=== PATIENT | male | born 1960 | race Hispanic/Latino ===

== ENCOUNTER 2017-12-11 07:17 | Day surgery (SDC) | payer BC, OTHER ==
--- NOTE | 2017-12-06 15:08 | RAD REPORT ---
EXAM DESCRIPTION: RADOP - Outpt Chest Pa/Lat (2 Views) - 12/06/2017 2:56 pm CLINICAL HISTORY: Diabetes, hypertension COMPARISON: 08/27/2017 FINDINGS: Mild interstitial pulmonary edema is suspected, unchanged. Small bilateral pleural effusio ns appear stable. The heart is mildly prominent size. Right-sided venous catheter has tip in the SVC. No displaced fractures. IMPRESSION: Stable findings of mild CHF/ volume overload.
[2017-12-06 15:47] LABS: Absolute Monocytes 0.6 K/uL (0.1-1.3); Absolute Neutrophil 3.7 K/uL (1.8-8.0); Basophils % 1.2 % (0-1.3); Eosinophils % 2.8 % (0-4.4); Hematocrit 29.3 % (39.6-49.0); Lymphocytes % 18.2 % (15.3-44.8); MCV 84.5 fL (80-100); MPV 8.8 fL (7.6-11.3); Monocytes % 11.2 % (3.3-12.3); RBC Red Blood Cell Count 3.47 M/uL (4.33-5.43)
--- NOTE | 2017-12-06 15:57 | EKG ---
Test Date: 2017-12-06 Test Time: 13:43:35 Robotics Technician: KYUNG MEASUREMENT RESULTS: Intervals: Rate: 74 MO: 148 QRSD: 88 QT: 420 QTc: 466 [place]: P: 63 MO: 148 QRS: 45 T: 25 INTERPRETIVE STATEMENTS: Normal sinus rhythm Possible Left atrial enlargement Borderline ECG Compared to ECG 08/14/2017 11:44:32 T-wave abnormality no longer present Possible ischemia no longer present Prolonged QT interval no longer present Electronically Signed On 12-06-17 15:56:33 CDT by Bong Coleman
[2017-12-06 15:59] LABS: Potassium 4.6 mEq/L (3.6-5.0)
--- OUTSIDE RECORDS SUMMARY | 2017-12-11 07:20 | XMS REPORT | Clinical Summary ---
:1960 Author Organization [facility] Address [address] [place] [address] Care Team Providers Name Role Phone Dante Best MD Primary Care Provider Allergies No Known Allergies Current Medications Prescription Sig. Disp. Refills Start Date End Date Status metoprolol succinate Take 50 mg by 0 10/30/2017 Active XL (TOPROL-XL) 50 mg mouth daily. 24 hr tablet valsartan (DIOVAN) TK 1 T PO QD 3 07/31/2017 Active 160 MG tablet hydrALAZINE TK 1 T PO TID 3 10/19/2017 Active (APRESOLINE) 100 MG tablet DULoxetine TK ONE C PO QD 5 08/27/2017 Active (CYMBALTA) 30 MG capsule INSULIN Inject 40 Units Active GLARGINE,HUM.REC.ANL under the skin OG (LANTUS SUBQ) daily. acetaminophen-codein Take 1-2 tablets 30 tablet 0 11/07/2017 11/14/2017 e (TYLENOL WITH by mouth every 6 CODEINE #3) 300-30 (six) hours as mg per tablet needed for moderate pain for up to 7 days. docusate sodium Take 1 capsule 14 capsule 0 11/07/2017 11/14/2017 (COLACE) 100 MG (100 mg total) capsule by mouth 2 (two) times a day for 7 days. Active Problems Problem Noted Date History of blood transfusion Overview: in July-2016. Wears glasses Never exercises Immunizations up to date ESRD (end stage renal disease) on dialysis Encounters Date Type Specialty Care Team Description 11/07/2017 Hospital Encounter General Surgery Julio Roman MD 11/07/2017 Procedure Pass General Surgery 11/07/2017 Surgery General Surgery KAREN Roman MD PERITONEAL DIALYSIS CATHETER PLACEMENT 11/03/2017 Anesthesia Event General Surgery Shirley Prajapati, DIRECTOR [employer] 11/02/2017 Pre-Admit Testing Pre-Admission [facility], Preop testing Appointment Testing Julio Lilly MD (Primary Dx) 11/02/2017 Office Visit General Surgery [facility] End-stage renal Julio Lilly MD disease (Primary Dx) after 12/10/2016 Family History Medical History Relation Name Comments Diabetes Brother Cirrhosis Brother Diabetes Brother Heart disease Father Hypertension Father Stroke Father Diabetes Mother Hypertension Mother Kidney disease Mother Relation Name Status Comments Brother Brother Alive Brother Father Mother Social History Tobacco Use Types Packs/Day Years Used Date Former Smoker Cigarettes Smokeless Tobacco: Never Used Comments: quit for 1 year Alcohol Use Drinks/Week oz/Week Comments No stopped in july 2017. Sex Assigned at Date Recorded Not on file Last Filed Vital Signs Vital Sign Reading Time Taken Blood Pressure 198/98 11/07/2017 12:20 PM BELL CAPTAIN Pulse 64 11/07/2017 11:50 AM BELL CAPTAIN Temperature 36.2 C (97.2 F) 11/07/2017 10:15 AM BELL CAPTAIN Respiratory Rate 17 11/07/2017 10:15 AM BELL CAPTAIN Oxygen Saturation 99% 11/07/2017 11:50 AM BELL CAPTAIN Inhaled Oxygen Concentration - - Weight 84.4 kg (186 lb) 11/02/2017 1:31 PM BELL CAPTAIN Height 175.3 cm (5' 9") 11/02/2017 3:33 PM BELL CAPTAIN Body Mass Index 27.47 11/02/2017 1:31 PM BELL CAPTAIN Plan of Treatment Health Maintenance Due Date Last Done Comments COLONOSCOPY 2009 INFLUENZA VACCINE 04/25/2017 Implants Implanted Type Area Print Finisher Device Expiration Model / Identifier Date Serial / Lot Manoj Stylet Stylet / N/A: N/A MEDIONICS 07/24/2021 [id number] / Implanted: Qty: 1 on 11/07/2017 by Julio Roman MD [place], [id number] / [id number] Catheter 19.5cm Peritoneal Dialysis Extended - [id number] Surgical N/A: N/A 08/24/2022 [id number] [id number] / Implanted: 11/07/2017 (Quantity not on file) Implants; / Expanders; [id number] Extenders; Surgical Wires Procedures Procedure Name Priority Date/Time Associated Diagnosis Comments PA AN ELECTIVE Routine 11/07/2017 8:17 AM ENDOTRACHEAL AIRWAY BELL CAPTAIN Procedure Note - Clovis Cavazos CRNA - 11/07/2017 8:17 AM BELL CAPTAIN Airway Date/Time: 11/07/2017 8:05 AM Performed by: CLOVIS CAVAZOS Authorized by: CIERRA SEO Location: OR Urgency: Elective Difficult Airway: No Anesthesiologist: CIERRA SEO Resident/PETROLEUM ENGINEER/AA: CLOVIS CAVAZOS Performed by: resident/PETROLEUM ENGINEER/AA Preoxygenated with 100% O2: Yes C-spine Precautions Maintained Throughout: Yes Mask Ventilation: Easy mask Final Airway Type: Endotracheal airway Final Endotracheal Airway: ETT Cuffed: Yes Technique Used: Direct laryngoscopy Devices/Methods Used in Placement: Intubating stylet Insertion Site: Oral Blade Type: Cadet Laryngoscope Blade/Videolaryngoscope Blade Size: 2 ETT Size (mm): 7.0 Cuff at minimum occlusion pressure: Yes Measured from: Lips ETT to Lips (cm): 22 Placement Verified by: CO2 detection, direct visualization and equal breath sounds Laryngoscopic view: Grade I - full view of glottis Rapid Sequence Induction (RSI): No Modified RSI: No Number of Attempts at Approach: 1 Atraumatic. Dentition remains unchanged after 12/10/2016 Results POC glucose (11/07/2017 9:20 AM)Only the most recent of2 resultswithin the time period is included. Component Value Ref Range POC glucose 95 65 - 99 mg/dL Comment: Meter ID: [id number] Splunk Developer: Ayde Talavera Specimen Performing Laboratory [facility] DEPARTMENT OF PATHOLOGY AND GENOMIC MEDICINE [address] [place], [place] [id number] POC panel 4 (11/07/2017 7:44 AM) Component Value Ref Range POC sodium 141 135 - 148 meq/L POC potassium 4.8 3.5 - 5.0 meq/L POC hematocrit 33 (L) 41 - 51 % POC glucose 65 65 - 99 mg/dL POC hemoglobin 11.2 (L) 14.0 - 18.0 g/dL Specimen Performing Laboratory Blood [facility] DEPARTMENT OF PATHOLOGY AND GENOMIC MEDICINE [address] [place] [id number] Estimated GFR (11/07/2017 7:40 AM) Component Value Ref Range GFR Non Af Amer 14 (A) mL/min/1.73 m2 GFR Af Amer 17 (A) mL/min/1.73 m2 Comment: Chronic kidney disease: <60 mL/min/1.73m2 Kidney failure: <15 mL/min/1.73m2 The estimated GFR is calculated from the IDMS-traceable Modification of Diet in Renal Disease Equation. The accuracy of the calculation is poor when the creatinine is normal. Calculated values >90 mL/min/1.73m2 are not reported. This equation has not been validated in children (<18 years), women, the elderly (>70 years), or ethnic groups other than Caucasians and Americans. Specimen Performing Laboratory Plasma specimen [facility] DEPARTMENT OF PATHOLOGY AND [facility] MEDICINE [address] [place] [address] Basic metabolic panel (11/07/2017 7:40 AM) Component Value Ref Range Sodium 140 135 - 148 mEq/L Potassium 4.6 3.5 - 5.0 mEq/L Chloride 103 98 - 112 mEq/L CO2 27 24 - 31 mEq/L Anion gap 10 7 - 15 mEq/L Comment: Starting from December , anion gap calculation no longer incorporates potassium. Please note the change. BUN 31 (H) 6 - 20 mg/dL Creatinine 4.4 (H) 0.7 - 1.2 mg/dL Glucose 66 65 - 99 mg/dL Calcium 8.2 (L) 8.3 - 10.2 mg/dL Specimen Performing Laboratory Plasma specimen [facility] DEPARTMENT OF PATHOLOGY AND [address] [address] ECG 12 lead (11/02/2017 4:21 PM) Component Value Ref Range Ventricular rate 64 Atrial rate 64 PA interval 146 QRSD interval 86 QT interval 446 QTC interval 460 P axis 1 48 QRS axis 1 28 T wave axis 51 EKG impression Normal sinus rhythm-Possible Left atrial enlargement-Anterior infarct , age undetermined-Abnormal ECG-No previous ECGs available- Specimen Performing Laboratory [facility] [address] [place] [address] CBC with platelet and differential (11/02/2017 4:09 PM) Component Value Ref Range WBC 5.7 4.5 - 11.0 k/uL RBC 4.22 (L) 4.40 - 6.00 m/uL HGB 11.9 (L) 14.0 - 18.0 g/dL HCT 36.5 (L) 41.0 - 51.0 % MCV 86.5 82.0 - 100.0 fL MCH 28.2 27.0 - 34.0 pg MCHC 32.6 31.0 - 37.0 g/dL RDW - SD 48.3 37.0 - 55.0 fL MPV 8.8 6.9 - 11.0 fL Platelet count 234 150 - 400 K/uL Nucleated RBC 0.00 /100 WBC Neutrophils 67.8 39.0 - 69.0 % Lymphocytes 16.8 (L) 25.0 - 45.0 % Monocytes 12.9 (H) 0.0 - 10.0 % Eosinophils 0.9 0.0 - 5.0 % Basophils 0.9 0.0 - 1.0 % Immature granulocytes 0.7 0.0 - 1.0 % Specimen Performing Laboratory Blood [facility] DEPARTMENT OF PATHOLOGY AND GENOMIC MEDICINE [address] [place] [address] after 12/10/2016 Insurance Payer Benefit Plan / Group Subscriber ID Type Phone Address BCBS BCBS CHOICE PPO/FEDERAL EMPL PPO xxxxxxxxxxxx O MEDICARE MEDICARE PART A AND B xxxxxxxxxx Medicare [place], [place] [phone] [address]
[2017-12-11] MEDS ORDERED: NA CHLORIDE 0.9% 500 ML ONE (08:02)
[2017-12-11] MEDS ORDERED: CEFAZOLIN/SWI 1gm 1 GM/10 ML SYR ONE (08:02)
[2017-12-11] MEDS ORDERED: LIDOCAINE 2% MPF 5 ML VIAL ONE (08:24)
[2017-12-11] MEDS ORDERED: MIDAZOLAM HCL 2 MG/2 ML INJ ONE (08:24)
[2017-12-11] MEDS ORDERED: PROPOFOL 200 MG/20 ML VIAL IV ONE (08:24)
[2017-12-11] MEDS ORDERED: ONDANSETRON 4 MG/2 ML VIAL ONE (08:25)
[2017-12-11] MEDS ORDERED: FENTANYL CITR 100 MCG/2 ML ONE (08:25)
--- NOTE | 2017-12-11 10:15 | P.BOP ---
Preoperative diagnosis: ESRD Postoperative diagnosis: same Primary procedure: Removal of hemospit HD cuffed cath Estimated blood loss: <10cc Specimen: hemosplit Anesthesia: MAC Complications: None Transferred to: Recovery Room Condition: Good
[2017-12-11 10:39] VITALS: BP 164/73; TEMP 98
[2017-12-11 11:18] VITALS: O2SAT 98
--- NOTE | 2017-12-11 11:58 | OP ---
Date of Procedure: 12/11/2017 Surgeon: Gianfranco Koehler MD Preoperative Diagnosis: End-stage renal disease. Postoperative Diagnosis: End-stage renal disease. Procedure: Removal of a HemoSplit hemodialysis cuffed catheter. Anesthesia: MAC. Specimen: Intact HemoSplit hemodialysis catheter. History Of Present Illness: This is the case of a 57-year-old patient with renal failure, receiving peritoneal dialysis and no need for the HemoSplit cuffed catheter anymore, so he wants that removed. The benefits, alternatives, and risks of removal were fully explained to the patient, which include but are not limited to infection, bleeding, damage to adjacent structures, anesthesia complication, p ulmonary emboli, bleeding, PA, or even . He also understands this may not relieve any symptoms. He might need more than one surgical intervention. He understood. Signed a consent. Description Of Procedure: The patient was brought to the operating room, placed in supine position. Anesthesia was done without complication. The chest was prepped and draped in a sterile fashion. A time-out was called. An incision was made in the area with a cuff was. Incision was carried down t o the subcutaneous tissue. Cuff was released. We obtained proximal and distal control of the cuff a nd then split the catheter and then the insertion site was removed. Pressure applied intact and then also the proximal side also removed intact. Specimen sent for identification. The area was irrigat ed. No bleeding. Subcutaneous incision closed with 3-0 chromic and Steri-Strips on top. Sponge cou nts and instrument counts were correct. The patient tolerated the procedure well. The patient was s ent to recovery in stable condition. This was done in Trendelenburg position. DISCHARGE SUMMARY Diagnosis: Renal failure. Procedure: Removal of HemoSplit hemodialysis cuffed catheter. Disposition: Home. Activity: As tolerated. No heavy lifting. Followup: Follow up in my office in 1 week. Call for appointment at [phone]. Keep area dry for 48 hours, then may shower. Medications: See orders. HM/MODL Voice ID: [id number] Report ID: [id number]
== END 2017-12-11 11:10 | disposition home or self-care (01) ==
LOC: OR 07:17
PROVIDERS: ATTEND Surgery
PROC: 0JPT0XZ Removal of Tunneled Vascular Access Device from Trunk Subcutaneous Tissue and Fascia, Open Approach (ICD-10-PCS; principal; 2017-12-11 08:30)
DX: Z45.2 Encounter for adjustment and management of vascular access device (principal); I12.0 Hypertensive chronic kidney disease with stage 5 chronic kidney disease or end stage renal disease; E11.22 Type 2 diabetes mellitus with diabetic chronic kidney disease; N18.6 End stage renal disease; G47.30 Sleep apnea, unspecified; Z87.891 Personal history of nicotine dependence; Z90.49 Acquired absence of other specified parts of digestive tract; Z83.3 Family history of diabetes mellitus; Z82.49 Family history of ischemic heart disease and other diseases of the circulatory system
CPT/HCPCS: 36415; 71046; 80048; 82962; 84132; 85025; 88300; 93005; J0690; J2250; J2405; J3010

== ENCOUNTER 2017-12-12 13:45 | Inpatient (IN) | payer BC, OTHER ==
--- OUTSIDE RECORDS SUMMARY | 2017-12-12 14:04 | XMS REPORT | Clinical Summary ---
:1960 Author Organization [facility] Address [address] [place] [address] Care Team Providers Name Role Phone Dante [...] PLACEMENT 11/03/2017 Anesthesia Event General Surgery Shirley Prajapati FNP 11/02/2017 Pre-Admit Testing Pre-Admission [facility], Preop testing Appointment Testing Julio Lilly MD (Primary Dx) 11/02/2017 Office Visit General Surgery [facility] End-stage renal Julio Lilly MD disease (Primary Dx) after 12/11/2016 Family History Medical History Relation Name Comments [...] Taken Blood Pressure 198/98 11/07/2017 12:20 PM RETAIL COMMISSION SALES ASSOCIATE Pulse 64 11/07/2017 11:50 AM RETAIL COMMISSION SALES ASSOCIATE Temperature 36.2 C (97.2 F) 11/07/2017 10:15 AM RETAIL COMMISSION SALES ASSOCIATE Respiratory Rate 17 11/07/2017 10:15 AM RETAIL COMMISSION SALES ASSOCIATE Oxygen Saturation 99% 11/07/2017 11:50 AM RETAIL COMMISSION SALES ASSOCIATE Inhaled Oxygen Concentration - - Weight 84.4 kg (186 lb) 11/02/2017 1:31 PM RETAIL COMMISSION SALES ASSOCIATE Height 175.3 cm (5' 9") 11/02/2017 3:33 PM RETAIL COMMISSION SALES ASSOCIATE Body Mass Index 27.47 11/02/2017 1:31 PM RETAIL COMMISSION SALES ASSOCIATE Plan of Treatment Health Maintenance Due Date Last Done Comments COLONOSCOPY 2009 INFLUENZA VACCINE 04/25/2017 Implants Implanted Type Area Forest Pathology Professor Device Expiration Model / Identifier Date Serial / Lot Manoj Stylet Stylet / N/A: N/A MEDIONICS 07/24/2021 [id number]-401 / Implanted: Qty: 1 on 11/07/2017 by Julio Roman MD [place], [id number] / [id number] Catheter 19.5cm Peritoneal Dialysis Extended - [id number] Surgical N/A: N/A 08/24/2022 [id number] [id number] / Implanted: 11/07/2017 (Quantity not on file) Implants; / Expanders; [id number] Extenders; Surgical Wires Procedures Procedure Name Priority Date/Time Associated Diagnosis Comments [place] AN ELECTIVE Routine 11/07/2017 8:17 AM ENDOTRACHEAL AIRWAY RETAIL COMMISSION SALES ASSOCIATE Procedure Note - Clovis Cavazos CRNA - 11/07/2017 8:17 AM RETAIL COMMISSION SALES ASSOCIATE Airway Date/Time: 11/07/2017 8:05 AM Performed by: CLOVIS CAVAZOS Authorized by: CIERRA SEO Location: OR Urgency: Elective Difficult Airway: No Anesthesiologist: CIERRA SEO Resident/LEGAL NURSE CONSULTANT/AA: CLOVIS CAVAZOS Performed by: resident/LEGAL NURSE CONSULTANT/AA Preoxygenated with 100% O2: Yes C-spine Precautions [...] Approach: 1 Atraumatic. Dentition remains unchanged after 12/11/2016 Results POC glucose (11/07/2017 9:20 AM)Only the most recent of2 resultswithin the time period is included. Component Value Ref Range POC glucose 95 65 - 99 mg/dL Comment: Meter ID: [id number] Roofer Helper: Ayde Talavera Specimen Performing Laboratory [facility] DEPARTMENT OF PATHOLOGY AND GENOMIC MEDICINE [address] [place] [phone] POC panel 4 (11/07/2017 7:44 AM) Component Value Ref Range POC sodium 141 135 - 148 meq/L POC potassium 4.8 3.5 - 5.0 meq/L POC hematocrit 33 (L) 41 - 51 % POC glucose 65 65 - 99 mg/dL POC hemoglobin 11.2 (L) 14.0 - 18.0 g/dL Specimen Performing Laboratory Blood [facility] DEPARTMENT OF PATHOLOGY AND GENOMIC MEDICINE [address] [place] [address] Estimated GFR (11/07/2017 7:40 AM) Component Value [...] and Americans. Specimen Performing Laboratory Plasma specimen [facility] DEPARTMENT OF PATHOLOGY AND [facility] MEDICINE [address] [place] [phone] Basic metabolic panel (11/07/2017 7:40 AM) Component [...] 10.2 mg/dL Specimen Performing Laboratory Plasma specimen [facility] OF PATHOLOGY AND [address] [address] ECG 12 lead (11/02/2017 4:21 PM) Component Value Ref Range Ventricular rate 64 Atrial rate 64 FL interval 146 QRSD interval 86 QT interval 446 QTC interval 460 P axis 1 48 QRS axis 1 28 T wave axis 51 EKG impression Normal sinus rhythm-Possible Left atrial enlargement-Anterior infarct , age undetermined-Abnormal ECG-No previous ECGs available- Specimen Performing Laboratory [facility] [address] [place] [address] CBC with platelet and differential (11/02/2017 4:09 [...] - 1.0 % Specimen Performing Laboratory Blood [facility] DEPARTMENT OF PATHOLOGY AND GENOMIC MEDICINE [address] [place] [address] after 12/11/2016 Insurance Payer Benefit Plan / Group Subscriber ID Type Phone Address BCBS BCBS CHOICE PPO/FEDERAL EMPL PPO xxxxxxxxxxxx O MEDICARE MEDICARE PART A AND B xxxxxxxxxx Medicare [place], [place] [phone] [address]
[2017-12-12] MEDS ORDERED: ALBUTEROL 2.5 MG/3 ML NEB SOL IH PRN (14:32)
[2017-12-12] MEDS ORDERED: DIPHENHYDRAMINE 25 MG TAB/CAP PO PRN (14:33)
[2017-12-12] MEDS ORDERED: POLYETHYL GLY 3350 17 GM/DOSE PO PRN (14:33)
[2017-12-12] MEDS ORDERED: LOPERAMIDE HCL 2 MG CAPSULE PO PRN (14:33)
[2017-12-12] MEDS ORDERED: ONDANSETRON 4 MG/2 ML VIAL IV PRN (14:33)
[2017-12-12] MEDS ORDERED: ACETAMINOPHEN 325 MG TABLET PO PRN (14:33)
[2017-12-12] MEDS ORDERED: ONDANSETRON 4 MG (ODT) TAB PO PRN (14:33)
[2017-12-12] MEDS ORDERED: PNEUMOCOCCAL VACCINE 0.5 ML IMVAC ONE (15:00)
[2017-12-12] MEDS ORDERED: FUROSEMIDE 40 MG/4 ML VIAL IV SCH (15:00)
[2017-12-12] MEDS ORDERED: INFLUENZA VACCINE (for 5y+) 0.5 ML DOSE IMVAC ONE (15:00)
[2017-12-12 15:31] LABS: Absolute Lymphocytes (CBC) 0.8 K/uL (0.7-4.9); Absolute Monocytes 0.3 K/uL (0.1-1.3); Absolute Neutrophil 2.9 K/uL (1.8-8.0); Basophils % 1.4 % (0-1.3); Eosinophils % 3.5 % (0-4.4); Hematocrit 26.6 % (39.6-49.0); Lymphocytes % 19.6 % (15.3-44.8); MCH 30.1 pg (27.0-35.0); MCV 89.1 fL (80-100); MPV 7.5 fL (7.6-11.3); Monocytes % 7.3 % (3.3-12.3); RBC Red Blood Cell Count 2.99 M/uL (4.33-5.43)
[2017-12-12 15:44] LABS: Potassium 3.9 mEq/L (3.6-5.0)
[2017-12-12 15:50] LABS: Albumin 2.5 g/dL (3.2-5.5); Bilirubin Direct 0.1 mg/dL (0-0.2); Bilirubin Total 0.9 mg/dL (0.3-1.2); Phosphorus 6.7 mg/dL (2.5-4.3); Protein, Total 6.2 g/dL (6.0-8.3)
[2017-12-12 15:53] LABS: CKMB Creatine Kinase MB 3.8 ng/ml (0.3-4.0); Protime INR 1.17
[2017-12-12] MEDS: ENOXAPARIN 40 MG/0.4 ML SQ SCH (15:58)
[2017-12-12] MEDS: METOLAZONE 5 MG TABLET PO SCH (15:59)
[2017-12-12 16:19] LABS: Magnesium 1.5 mg/dL (1.8-2.5)
[2017-12-12 16:24] LABS: Thyroid Stimulating Hormone 2.2 uIU/mL (0.34-5.60)
--- NOTE | 2017-12-12 16:50 | RAD REPORT ---
EXAM DESCRIPTION: RAD - Abdomen Single View - 12/12/2017 4:37 pm CLINICAL HISTORY: Renal diseasecHF/CKd COMPARISON: Renal ultrasound July 2017 FINDINGS: Bowel gas pattern is non-specific. No obstruction, free air or pneumatosis. No renal or u reteral calculi confirmed. There are faint vascular calcifications in the pelvis. Radiopaque tubing o verlies the pelvis and abdomen possibly peritoneal dialysis catheter. No significant bony findings IMPRESSION: No renal or ureteral calculi seen.
--- NOTE | 2017-12-12 16:51 | RAD REPORT ---
EXAM DESCRIPTION: RAD - Chest Pa And Lat (2 Views) - 12/12/2017 4:37 pm CLINICAL HISTORY: cHF/CKd COMPARISON: August 27, 2017 TECHNIQUE: PA and lateral views of the chest were obtained. FINDINGS: The lungs are slightly underinflated. Lung meraz are better aerated than on the prior delphine dy though there is still prominent interstitial markings in both lung bases. Lung base pleural effusi ons are present but improved from comparison. Trachea is midline. No vascular engorgement. Skin stapl es are present overlying the right clavicle presumed to be from removal of any dialysis catheter. H eart size is normal. No pneumothorax. No acute bony finding noted. No aortic abnormality. IMPRESSION: Minimal pleural effusion or pleural scarring changes. Pleural fluid component has dimini shed since August 2017. Interstitial markings are mildly prominent. Minimal failure or volume overload is still possible. Overall findings are less pronounced than seen last August.
[2017-12-12] MEDS: FUROSEMIDE 100 MG/10 ML VIAL IV SCH (18:43)
[2017-12-12] MEDS: IPRATROPIUM BROM 0.5MG/2.5ML IH SCH (19:42)
[2017-12-12] MEDS: ALBUTEROL 2.5 MG/3 ML NEB SOL IH SCH (19:42)
[2017-12-12] MEDS ORDERED: ALBUTEROL INHALER 60 PUFF/8 GM IH PRN (20:39)
[2017-12-12] MEDS ORDERED: TRAMADOL HCL 50 MG TAB PO PRN (20:39)
[2017-12-12] MEDS ORDERED: HOME MED 1 EA UNK (Gabapentin [Neurontin] 600 MG) PO SCH (21:00)
[2017-12-12] MEDS: MIRTAZAPINE 15 MG TAB PO SCH (22:09)
[2017-12-12] MEDS: LACTULOSE 20 GM/30 ML UCUP PO SCH (22:09)
[2017-12-12] MEDS: HYDRALAZINE HCL 25 MG TABLET PO SCH (22:10)
[2017-12-12 23:45] LABS: CKMB Creatine Kinase MB 3.4 ng/ml (0.3-4.0)
[2017-12-13 01:29] LABS: Urine Appearance CLEAR; Urine Bilirubin NEGATIVE (NEG); Urine Blood 2+ (NEG); Urine Color YELLOW; Urine Glucose 1+ (NEG); Urine Protein 2+ (NEG); Urine Urobilinogen 0.2 mg/dL (0.2-1.0)
[2017-12-13 01:34] LABS: Urine Microscopic Reflex ORDER UMIC
[2017-12-13] MEDS: IPRATROPIUM BROM 0.5MG/2.5ML IH SCH ×4 (02:16→19:41)
[2017-12-13] MEDS: ALBUTEROL 2.5 MG/3 ML NEB SOL IH SCH ×4 (02:16→19:41)
[2017-12-13 03:02] LABS: UR CREAT 23.5 mg/dL; UR MICROALBUMIN 145.8 mg/dL (< 1.9)
[2017-12-13 03:06] LABS: Urine Bacteria <20 /HPF (NONE SEEN); Urine Culture Reflex Order NOT NEEDED; Urine RBC >50 /HPF (NONE SEEN)
--- NOTE | 2017-12-13 03:20 | CON ---
Date of Consultation: 12/12/2017 Additional Consulting Physician: Dante Best M.D. Reason For Consultation: Renal failure, over volume anasarca. History Of Present Illness: This is a 57-year-old gentleman with significant past medical history of diabetes, complicated with nephropathy and neuropathy; hypertension; artery disease status post MRI complicated with congestive heart failure; nephrotic range of proteinuria secondary to diabetes. The patient recently started on dialysis, then switch to PD. According to the patient, the patient having difficulty with drainage on his PD. According to him, he infused , but no drainage. The patient started having increased swelling in his leg and started to have shortness of breath, for that reason, he visited with his primary care and found to be hypoxemic, for that reason, he was admitted to the hospital and we have been consulted. Past Medical History: Include 1. Hypertension. 2. Diabetes complicated with neuropathy and nephropathy. 3. Coronary artery disease status post DE, complicated with congestive heart failure. 4. End-stage renal disease, on PD. Social History: Active smoker. Active alcohol. Denies drug abuse. Allergies: NO KNOWN DRUG ALLERGIES. Past Surgical History: Include appendectomy, PermCath placement, cholecystectomy, amputation of the right big toe. Family History: Positive for hypertension and diabetes. Home Medications: Include; metoprolol 50 mg daily, duloxetine, lactulose, allopurinol, lisinopril 20 daily, tramadol, codeine, mirtazapine, gabapentin, Lasix 40 daily, valsartan 320 and hydralazine 100 t.i.d. Current Medication In The Hospital: Include; 1. Breathing treatment. 2. Lovenox. 3. Lasix 40 daily. 4. Hydralazine 100 t.i.d. 5. Loperamide. 6. Mirtazapine. 7. Zofran. 8. Tramadol. 9. Valsartan 30. Review of Systems: Head And Neck: No red eye. No ear pain. GI: No nausea, no vomiting. : No polyuria. No dysuria. No hematuria. OBGYN NURSE: Not applicable. Respiratory: Has shortness of breath. Cardiovascular: Has orthopnea, has anasarca. Neuro: Generalized weakness, has neuropathy. Musculoskeletal: No joint pain. Endocrine: No polydipsia. Skin: No rash. Physical Examination: Vital Signs: When I saw the patient, blood pressure 173/83, pulse of 62. Afebrile. Chest: Crackles bilateral. Heart: S1, S2. Regular. Systolic murmur. Abdomen: Soft, nontender. Extremities: +3 edema. Amputation of the second toe on the right. Laboratory Data: WBC 4.3, H and H 9/26.6, and platelet 259. Sodium 139, potassium 3.9, bicarb 26, BUN 72, creatinine 7, calcium 7.6, phosphorus 6.7, magnesium 1.5. BNP 2100, vitamin D25 7.7. TSH 2.2. Chest x-ray had cardiomegaly with congestion. Abdominal x-ray, no small bowel obstruction. PD catheter in place. Assessment And Plan: 1. End-stage renal disease with congestive heart failure, over volume. We will start the patient on aggressive diuresis. I am going to start the patient on Lasix 80 twice a day, and we will add metolazone and we will monitor the patient closely. I am going to change the prescription to 1.5L x 5 , with 2.5 % . We will get abdominal x-ray to evaluate if there is any abnormality on the position of the catheter or any constipation. Continue lactulose. 2. Carotid artery disease with congestive heart failure. Continue diuresis. Optimize fluid with ultrafiltration of 2.5. 3. Hypertension, uncontrolled. We will utilize blood pressure for more diuresis. I am going to discontinue lisinopril to avoid double block and I will add nitroglycerin for the patient and we will follow up. 4. Diabetes as by primary. Thank you, Dr. Best for allowing us to participate in the care of your patient. YANIRA Voice ID: [id number] Report ID: [id number] KATHIA
[2017-12-13 04:30] LABS: Absolute Lymphocytes (CBC) 0.5 K/uL (0.7-4.9); Absolute Monocytes 0.3 K/uL (0.1-1.3); Absolute Neutrophil 3.1 K/uL (1.8-8.0); Basophils % 1.1 % (0-1.3); Eosinophils % 2.8 % (0-4.4); Hematocrit 24.7 % (39.6-49.0); Lymphocytes % 12.4 % (15.3-44.8); MCH 31.7 pg (27.0-35.0); MCV 92.8 fL (80-100); MPV 7.7 fL (7.6-11.3); RBC Red Blood Cell Count 2.66 M/uL (4.33-5.43)
[2017-12-13] MEDS: CODEINE 30MG/APAP 300MG TAB PO PRN ×2 (04:37→17:51)
[2017-12-13 05:00] LABS: Potassium 3.8 mEq/L (3.6-5.0)
[2017-12-13 05:10] LABS: CKMB Creatine Kinase MB 2.8 ng/ml (0.3-4.0)
[2017-12-13 05:20] LABS: Magnesium 1.5 mg/dL (1.8-2.5)
--- NOTE | 2017-12-13 05:57 | EKG ---
Test Date: 2017-12-12 Test Time: 15:09:00 Wick Tender: RADHA MEASUREMENT RESULTS: Intervals: Rate: 64 MO: 150 QRSD: 82 QT: 444 QTc: 458 [place]: P: 70 MO: 150 QRS: 73 T: 56 INTERPRETIVE STATEMENTS: Normal sinus rhythm Possible Left atrial enlargement Borderline ECG Compared to ECG 12/06/2017 13:43:35 No significant changes Electronically Signed On 12-13-17 05:56:57 CDT by Bong Coleman
[2017-12-13] MEDS: NITROGLYCERIN 0.2 MG/HR (5 MG) PATCH TD SCH ×2 (09:00)
[2017-12-13] MEDS: FUROSEMIDE 100 MG/10 ML VIAL IV SCH (09:00)
[2017-12-13 11:04] LABS: A1c Component 0.37 mg/dL
[2017-12-13] MEDS ORDERED: GLUCAGON 1 MG/VIAL IM PRN (11:13)
[2017-12-13] MEDS ORDERED: D50W 25 GM/50 ML SYRINGE IV PRN (11:13)
[2017-12-13] MEDS: HYDRALAZINE HCL 25 MG TABLET PO SCH ×3 (11:21→20:44)
[2017-12-13] MEDS: GABAPENTIN 300 MG CAP PO SCH ×3 (11:22→20:44)
[2017-12-13] MEDS: METOPROLOL XL 50 MG TAB PO SCH (11:22)
[2017-12-13] MEDS: VALSARTAN 160 MG TAB PO SCH (11:22)
[2017-12-13] MEDS: ENOXAPARIN 40 MG/0.4 ML SQ SCH (11:22)
[2017-12-13] MEDS: DULOXETINE 30 MG CAP PO SCH (11:23)
[2017-12-13] MEDS: INSULIN -REGULAR HUMAN 50 UNIT/0.5 ML ML SQ SCH ×3 (11:30→20:58)
[2017-12-13] MEDS: METOLAZONE 5 MG TABLET PO SCH (11:30)
[2017-12-13] MEDS: INSULIN DETEMIR 100 UNIT/1 ML INSULIN SQ SCH (11:31)
[2017-12-13] MEDS ORDERED: FUROSEMIDE 40 MG/4 ML VIAL IV ONE (12:39)
[2017-12-13] MEDS ORDERED: DEXAMETHASONE 10 MG/ML VIAL IM ONE (18:00)
[2017-12-13] MEDS ORDERED: DEXAMETHASONE 4 MG/ML VIAL IM ONE (18:00)
--- NOTE | 2017-12-13 18:16 | P.PN ---
Subjective Date of Service: 12/13/17 Chief Complaint: DYSPNEA Subjective: Improving (HE IS STILL NOT UPTO THE PAR. HE IS BETTER THAN YEST.) Review of Systems 10-point ROS is otherwise unremarkable General: Weakness, Malaise Musculoskeletal: Shoulder Pain ( L), Other Physical Examination - Vital Signs Temperature: 99.1 F Blood Pressure: 170/77 Pulse: 67 Respirations: 18 Pulse Ox (%): 90 - Physical Exam General: Alert, Mild distress, Moderate distress (L SHOULDER) HEENT: Atraumatic, PERRLA, EOMI Neck: Supple, JVD not distended (BETTER FROM YEST.) Respiratory: Clear to auscultation bilaterally, Normal air movement Cardiovascular: Normal S1 S2, Edema Gastrointestinal: Normal bowel sounds, No tenderness Musculoskeletal: No tenderness Integumentary: No rashes Neurological: Normal speech, Normal tone, Normal affect Lymphatics: No axilla or inguinal lymphadenopathy - Studies Laboratory Data (last 24 hrs) 12/13/17 04:08: Troponin I 0.03 12/13/17 04:08: Sodium 139, Potassium 3.8, BUN 72 H, Creatinine 6.85 H*, Glucose 276 H, Magnesium 1.5 L 12/13/17 04:08: WBC 4.1 L, Hgb 8.4 L, Hct 24.7 L, Plt Count 303 12/12/17 22:42: Troponin I 0.03 Medications List Reviewed: Yes Assessment And Plan - Current Problems (Diagnosis) (1) Dyspnea Onset Date: 12/13/17 Current Visit: Yes Status: Acute Plan: PULMONARY EDEMA FROM CKD PD IS NOT WORKING WELL HD DR. KELLY IS WORKING ON THE CHANGES. (2) Rotator cuff strain Current Visit: Yes Status: Acute Plan: DECADRON IM L SIDE. Qualifiers: Encounter type: initial encounter Laterality: left Qualified Code(s): S46.012A - Strain of muscle(s) and tendon(s) of the rotator cuff of left shoulder, initial encounter (3) Hypertension, uncontrolled Onset Date: 12/26/16 Current Visit: No Status: Chronic Plan: REMOVAL OF FLUID WILL HELP PD ADJUSTMENT BEING DONE. (4) Diabetes type 2, uncontrolled Current Visit: Yes Status: Chronic Qualifiers: Diabetes mellitus assisted insulin use: with termite inspector use Diabetes mellitus complication detail: with nephropathy
[2017-12-13] MEDS: BUMETANIDE 1 MG TABLET PO SCH (20:43)
[2017-12-13] MEDS: MIRTAZAPINE 15 MG TAB PO SCH (20:44)
[2017-12-13] MEDS: LACTULOSE 20 GM/30 ML UCUP PO SCH (20:46)
[2017-12-13] MEDS ORDERED: EPOETIN ALFA 10,000 UNIT/ML VIAL IV SCH (22:00)
--- NOTE | 2017-12-14 00:48 | PN ---
Date of Progress Note: 12/13/2017 Subjective: The patient feeling better. The patient had ultrafiltration of 1200. Had good urine ou tput. His swelling slightly better. No abdominal distention. Blood sugar being on the upper side. Physical Examination: Vital Signs: Blood pressure 151/70, pulse of 67, afebrile. The patient had weight aguayo no major bishop nges. Chest: Crackles bilateral. Heart: S1, S2. Regular. Abdomen: Soft, nontender. Extremities: +2 edema. Laboratory Data: H and H 8.4/24.7. Sodium 139, potassium 3.8, bicarb 24, BUN 72, creatinine 6.8, ca lcium 7.1, magnesium of 1.5, phosphorus 6.7. Medications: Current medications the patient on it include; 1.Valsartan. 2.Nitroglycerin. 3.Metoprolol. 4.Hydralazine. 5.Albuterol. 6.Tylenol. 7.Gabapentin. 8.Lasix 80 b.i.d. 9.Breathing treatment. 10.Loperamide. 11.Zofran. 12.Insulin. Assessment And Plan: 1.End-stage renal disease. I am going to continue the patient on PD. The patient still needs to be negative balance if possible, patient high transporter. I am going to change the PD regimen to be 5 exchanges of 1.5 L and we will follow up the patient. 2.I am going to go ahead and switch the patient from Lasix to Bumex and add metolazone. 3.We will add sliding scale to have better control on the blood sugar, continue 2.5. 4.Hypertension. We will utilize blood pressure for more diuresis. We will place the patient on Bum ex and add metolazone. 5.Congestive heart failure. We will ultrafiltrate. 6.Anemia. Start the patient on Epogen. I am going to give the patient iron and we will follow up. 7.Diabetes. We will start the patient on sliding scale. SUSHANT/QUINTIN Voice ID: [id number] Report ID: [id number]
[2017-12-14] MEDS: ALBUTEROL 2.5 MG/3 ML NEB SOL IH SCH ×4 (01:06→19:42)
[2017-12-14] MEDS: IPRATROPIUM BROM 0.5MG/2.5ML IH SCH ×4 (01:06→19:42)
[2017-12-14 06:02] LABS: Absolute Lymphocytes (CBC) 0.3 K/uL (0.7-4.9); Absolute Monocytes 0.2 K/uL (0.1-1.3); Absolute Neutrophil 1.9 K/uL (1.8-8.0); Basophils % 0.6 % (0-1.3); Eosinophils % 0.1 % (0-4.4); Hematocrit 25.5 % (39.6-49.0); Lymphocytes % 10.9 % (15.3-44.8); MCH 33.7 pg (27.0-35.0); MPV 7.6 fL (7.6-11.3); Monocytes % 7.5 % (3.3-12.3); RBC Red Blood Cell Count 2.63 M/uL (4.33-5.43)
[2017-12-14 06:20] VITALS: BMI 31.0
[2017-12-14 06:26] LABS: Magnesium 1.5 mg/dL (1.8-2.5); Potassium 3.9 mEq/L (3.6-5.0)
[2017-12-14] MEDS ORDERED: INSULIN -REGULAR HUMAN 50 UNIT/0.5 ML ML SQ ONE (07:00)
[2017-12-14] MEDS: HYDRALAZINE HCL 25 MG TABLET PO SCH ×2 (07:59→14:37)
[2017-12-14] MEDS: DULOXETINE 30 MG CAP PO SCH (07:59)
[2017-12-14] MEDS: METOLAZONE 5 MG TABLET PO SCH (08:00)
[2017-12-14] MEDS: METOPROLOL XL 50 MG TAB PO SCH (08:00)
[2017-12-14] MEDS: BUMETANIDE 1 MG TABLET PO SCH (08:00)
[2017-12-14] MEDS: VALSARTAN 160 MG TAB PO SCH (08:00)
[2017-12-14] MEDS: INSULIN DETEMIR 100 UNIT/1 ML INSULIN SQ SCH (08:00)
[2017-12-14] MEDS: GABAPENTIN 300 MG CAP PO SCH ×2 (08:01→14:39)
[2017-12-14] MEDS: NITROGLYCERIN 0.2 MG/HR (5 MG) PATCH TD SCH (08:15)
[2017-12-14] MEDS ORDERED: ENOXAPARIN 30 MG/0.3 ML SQ SCH ×2 (09:00)
[2017-12-14 09:24] VITALS: O2SAT 95
[2017-12-14] MEDS: INSULIN -REGULAR HUMAN 50 UNIT/0.5 ML ML SQ SCH ×2 (11:30→16:30)
[2017-12-14] MEDS ORDERED: NIFEDIPINE XL 30 MG TABLET PO SCH (12:00)
[2017-12-14] MEDS ORDERED: cloNIDine HCl 0.1 MG TAB PO SCH (14:00)
[2017-12-14 16:26] VITALS: BP 152/71; TEMP 98.1
[2017-12-14] MEDS ORDERED: SEVELAMER CARBONATE 800 MG TABLET PO SCH (17:00)
--- NOTE | 2017-12-14 17:16 | PN ---
Date of Progress Note: 12/14/2017 Subjective: The patient feeling much better. Still have swelling, but he lost 5 pounds from yesterd ay. Physical Examination: General: When I saw the patient, the patient was sitting in the bed, comfortable. Blood pressure is still elevated. Chest: Clear to auscultation. Heart: S1, S2. Regular. Abdomen: Soft, nontender. Extremities: +2 edema. Toe amputation on the right side. The patient had ultrafiltration of 3.5 kg on the PD. The patient had urine output of around 800. Th e patient lost 5 pounds from yesterday. Medications: Current medications the patient on include; 1.Epogen. 2.IV iron. 3.Lovenox. 4.Hydralazine 100 t.i.d. 5.Metoprolol 50 daily. 6.Nifedipine 30 daily. 7.Gabapentin. 8.Bumex 2 mg b.i.d. 9.Metolazone 5 daily. 10.Insulin sliding scale. 11.Levemir 40 daily. 12.Codeine. 13.Tramadol. Assessment And Plan: 1.End-stage renal disease, over volume. Responding very well to current regimen of PD, ultrafiltrat ing 3 L over the night, lost 5 pounds. I am going to continue current regimen. 2.Hypertension, uncontrolled. I am going to increase the lisinopril. Continue current dose of vals francis. We will add clonidine for the patient to have better blood pressure control. 3.Anasarca, secondary to renal failure. Continue ultrafiltration with the current regimen. Continu e diuresis. 4.Diabetes. Start the patient on the sliding scale to establish better blood sugar control. Contin ue Levemir. 5.Vitamin D deficiency. We will start supplement. 6.Secondary hyperpara, stable. Continue Renvela. The patient cleared from the renal standpoint for discharge planning as far his blood pressure get be tter control. To follow up with dialysis center in a week. YANIRA Voice ID: [id number] Report ID: [id number]
--- NOTE | 2017-12-14 18:24 | P.DS ---
Admission Date: 12/14/17 Discharge Date: 12/14/17 Disposition: ROUTINE DISCHARGE Discharge Condition: FAIR Reason for Admission: DYSPNEA - Problems (1) Dyspnea Onset Date: 12/13/17 Current Visit: Yes Status: Acute (2) Rotator cuff strain Current Visit: Yes Status: Acute Qualifiers: Encounter type: initial encounter Laterality: left Qualified Code(s): S46.012A - Strain of muscle(s) and tendon(s) of the rotator cuff of left shoulder, initial encounter (3) Hypertension, uncontrolled Onset Date: 12/26/16 Current Visit: No Status: Chronic (4) Diabetes type 2, uncontrolled Current Visit: Yes Status: Chronic Qualifiers: Diabetes mellitus leadership development consultant insulin use: with leadership development consultant use Diabetes mellitus complication detail: with nephropathy Hospital Course: MR LYLES CAME WITH PULMONARY EDEMA. DID WELL AFTER THE PD ADJUSTMENT BY DR. KELLY. HE HAD HIGH BP THAT CAME DOWN WITH NIFEDEPINE. HE HAS SEVERE SHOULDER PAIN FOR THAT HE GOT DECADRON INJECTION AND GLUCOSE WENT UP EXPECTED. IT IS DOWN NOW TO LESS THAN 150. HE IS STABLE FOR DC. Vital Signs/Physical Exam: Temp Pulse Resp BP Pulse Ox 98.1 F 67 18 152/71 H 96 12/14/17 16:00 12/14/17 16:00 12/14/17 16:00 12/14/17 16:00 12/14/17 16:00 Laboratory Data at Discharge: WBC 2.4 K/uL (4.3-10.9) L D 12/14/17 05:40 Hgb 8.9 g/dL (13.6-17.9) L 12/14/17 05:40 Hct 25.5 % (39.6-49.0) L 12/14/17 05:40 Plt Count 311 K/uL (152-406) 12/14/17 05:40 PT 13.8 SECONDS (9.5-12.5) H 12/12/17 15:13 INR 1.17 12/12/17 15:13 APTT 39.0 SECONDS (24.3-36.9) H 12/12/17 15:13 Sodium 136 mEq/L (135-145) 12/14/17 05:40 Potassium 3.9 mEq/L (3.6-5.0) 12/14/17 05:40 BUN 58 mg/dL (6-20) H 12/14/17 05:40 Creatinine 7.05 mg/dL (0.61-1.24) H* 12/14/17 05:40 Glucose 40 mg/dL (65-120) L* 12/14/17 17:09 Phosphorus 6.7 mg/dL (2.5-4.3) H 12/12/17 15:13 Magnesium 1.5 mg/dL (1.8-2.5) L 12/14/17 05:40 Total Bilirubin 0.9 mg/dL (0.3-1.2) 12/12/17 15:13 AST 29 IU/L (10-42) 12/12/17 15:13 ALT 19 IU/L (10-60) 12/12/17 15:13 Alkaline Phosphatase 247 IU/L (42-121) H 12/12/17 15:13 Troponin I 0.03 ng/mL (<0.03) 12/13/17 04:08 B-Natriuretic Peptide 2123 pg/ml (<=100) H 12/12/17 15:13 Home Medications: Insulin Glargine Human [Lantus*] 40 units SQ DAILY 05/15/12 Gabapentin [Neurontin] 600 mg PO TID 03/09/16 Tramadol HCl [Ultram] 50 mg PO BID PRN 12/25/16 Valsartan 320 mg PO [id number] 12/25/16 Furosemide [Lasix*] 40 mg PO DAILY 12/06/17 Albuterol Sulfate [Proair Hfa] 2 puff IH Q6H PRN 12/12/17 Ciprofloxacin HCl 500 mg PO BID PRN 12/12/17 Codeine/APAP [Tylenol W/Codeine #3 tab] 1 tab PO Q4H PRN 12/12/17 Duloxetine [Cymbalta *] 30 mg PO DAILY 12/12/17 Hydralazine HCl [Apresoline] 100 mg PO TID 12/12/17 Lactulose 10 gm PO BEDTIME 12/12/17 Lisinopril [Prinivil*] 20 mg PO DAILY 12/12/17 Metoprolol Succinate [Toprol Xl*] 50 mg PO DAILY 12/12/17 Mirtazapine 7.5 mg PO BEDTIME 12/12/17 Metoprolol Succinate [Toprol Xl*] 50 mg PO DAILY tab 12/14/17 Nifedipine Xl [Procardia XL*] 60 mg PO DAILY #30 tab 12/14/17 New Medications: Nifedipine Xl [Procardia XL*] 60 mg PO DAILY #30 tab
[2017-12-14] MEDS ORDERED: SOD FERRIC GLUC COMPLX/SUCROSE 250 MG in NA CHLORIDE 0.9% 250 ML IV ONE (21:52)
[2017-12-15] MEDS ORDERED: VITAMIN D 1000 UNIT TAB PO SCH (09:00)
[2017-12-15] MEDS ORDERED: NIFEDIPINE XL 60 MG TABLET PO SCH (09:00)
== END 2017-12-14 20:25 | disposition home or self-care (01) | DRG 683 ==
LOC: 4TH 14:02 → OBSVTOIN 12-14 13:45
PROVIDERS: ADMIT Internal Medicine; ATTEND Internal Medicine
DX: N18.6 End stage renal disease (principal); I13.2 Hypertensive heart and chronic kidney disease with heart failure and with stage 5 chronic kidney disease, or end stage renal disease; E11.22 Type 2 diabetes mellitus with diabetic chronic kidney disease; E11.65 Type 2 diabetes mellitus with hyperglycemia; I50.9 Heart failure, unspecified; S46.012A Strain of muscle(s) and tendon(s) of the rotator cuff of left shoulder, initial encounter; E55.9 Vitamin D deficiency, unspecified; I25.10 Atherosclerotic heart disease of native coronary artery without angina pectoris
CPT/HCPCS: 36415; 71046; 74018; 80048; 80069; 80076; 81003; 81015; 82043; 82306; 82550; 82553; 82570; 82607; 82947; 82962; 83036; 83735; 83880; 84443; 84484; 85025; 85610; 85730; 87086; 87088; 93005; 94640; G0378; J1100; J1650; J2916

== ENCOUNTER 2018-01-25 15:31 | Observation (INO) | payer BC, OTHER ==
--- OUTSIDE RECORDS SUMMARY | 2018-01-25 15:52 | XMS REPORT | Clinical Summary ---
:1960 Author Organization [facility] Address [address] [place] [address] Care Team Providers Name Role Phone Dante [...] 11/03/2017 Anesthesia Event General Surgery Shirley Prajapati, SURGICAL AIDES TEACHER 11/02/2017 Pre-Admit Testing Pre-Admission Abel, Preop testing Appointment Testing Julio Lilly MD (Primary Dx) 11/02/2017 Office Visit General Surgery Abel End-stage renal Julio Lilly MD disease (Primary Dx) after 01/24/2017 Family History Medical History Relation Name Comments [...] Taken Blood Pressure 198/98 11/07/2017 12:20 PM DIALER Pulse 64 11/07/2017 11:50 AM DIALER Temperature 36.2 C (97.2 F) 11/07/2017 10:15 AM DIALER Respiratory Rate 17 11/07/2017 10:15 AM DIALER Oxygen Saturation 99% 11/07/2017 11:50 AM DIALER Inhaled Oxygen Concentration - - Weight 84.4 kg (186 lb) 11/02/2017 1:31 PM DIALER Height 175.3 cm (5' 9") 11/02/2017 3:33 PM DIALER Body Mass Index 27.47 11/02/2017 1:31 PM DIALER Plan of Treatment Health Maintenance Due Date Last Done Comments COLONOSCOPY 2009 SHINGRIX VACCINE (#1) 2009 INFLUENZA VACCINE 04/25/2018 Implants Implanted Type Area [employer] Mechanic Device Expiration Model / Identifier Date Serial / Lot Manoj Stylet Stylet / N/A: N/A MEDIONICS 07/24/2021 [id number] / Implanted: Qty: 1 on 11/07/2017 by Julio Roman MD Needle [employer]amana, [id number] / [id number] Catheter 19.5cm Peritoneal Dialysis Extended - [id number] Surgical N/A: N/A 08/24/2022 [id number] / Implanted: 11/07/2017 (Quantity not on file) Implants; / Expanders; [id number] Extenders; Surgical Wires Procedures Procedure Name Priority Date/Time Associated Diagnosis Comments AR AN ELECTIVE Routine 11/07/2017 8:17 AM ENDOTRACHEAL AIRWAY DIALER Procedure Note - Clovis Cavazos CRNA - 11/07/2017 8:17 AM DIALER Airway Date/Time: 11/07/2017 8:05 AM Performed by: CLOVIS CAVAZOS Authorized by: CIERRA SEO Location: OR Urgency: Elective Difficult Airway: No Anesthesiologist: CIERRA SEO Resident/AUTOMATIC GRINDER OPERATOR/AA: CLOVIS CAVAZOS Performed by: resident/AUTOMATIC GRINDER OPERATOR/AA Preoxygenated with 100% O2: Yes C-spine Precautions [...] Approach: 1 Atraumatic. Dentition remains unchanged after 01/24/2017 Results POC glucose (11/07/2017 9:20 AM)Only the most recent of2 resultswithin the time period is included. Component Value Ref Range POC glucose 95 65 - 99 mg/dL Comment: Meter ID: [id number] Linux Vmware Administrator: Ayde Talavera Specimen Performing Laboratory [facility] DEPARTMENT OF PATHOLOGY AND GENOMIC MEDICINE [address] [place] [id number] POC panel 4 (11/07/2017 7:44 AM) Component Value Ref Range POC sodium 141 135 - 148 meq/L POC potassium 4.8 3.5 - 5.0 meq/L POC hematocrit 33 (L) 41 - 51 % POC glucose 65 65 - 99 mg/dL POC hemoglobin 11.2 (L) 14.0 - 18.0 g/dL Specimen Performing Laboratory Blood [facility] DEPARTMENT OF PATHOLOGY AND [facility] MEDICINE [address] [place] [id number] Estimated GFR (11/07/2017 7:40 AM) Component Value [...] and Americans. Specimen Performing Laboratory Plasma specimen [facility] DEPARTMENT OF PATHOLOGY AND GENOMIC MEDICINE [address] [place] [id number] Basic metabolic panel (11/07/2017 7:40 AM) Component [...] 10.2 mg/dL Specimen Performing Laboratory Plasma specimen [facility] OF PATHOLOGY AND [address] [address] ECG 12 lead (11/02/2017 4:21 PM) Component Value Ref Range Ventricular rate 64 Atrial rate 64 AR interval 146 QRSD interval 86 QT interval 446 QTC interval 460 P axis 1 48 QRS axis 1 28 T wave axis 51 EKG impression Normal sinus rhythm-Possible Left atrial enlargement-Anterior infarct , age undetermined-Abnormal ECG-No previous ECGs available- Specimen Performing Laboratory [facility] MUSE [address] [place] [address] CBC with platelet and differential (11/02/2017 4:09 [...] - 1.0 % Specimen Performing Laboratory Blood [facility] DEPARTMENT OF PATHOLOGY AND GENOMIC MEDICINE [id number] [place] [phone] after 01/24/2017 Insurance Payer Benefit Plan / Group Subscriber ID Type Phone Address BCBS BCBS CHOICE PPO/FEDERAL EMPL PPO xxxxxxxxxxxx PPO MEDICARE MEDICARE PART A AND B xxxxxxxxxx Medicare [place], [place] [phone] [id number]
[2018-01-25] MEDS ORDERED: ALBUTEROL 2.5 MG/3 ML NEB SOL IH PRN (16:19)
[2018-01-25] MEDS ORDERED: ONDANSETRON 4 MG/2 ML VIAL IV PRN (16:20)
[2018-01-25] MEDS ORDERED: LOPERAMIDE HCL 2 MG CAPSULE PO PRN (16:20)
[2018-01-25] MEDS ORDERED: ONDANSETRON 4 MG (ODT) TAB PO PRN (16:20)
[2018-01-25] MEDS ORDERED: POLYETHYL GLY 3350 17 GM/DOSE PO PRN (16:20)
[2018-01-25] MEDS ORDERED: DIPHENHYDRAMINE 25 MG TAB/CAP PO PRN (16:20)
[2018-01-25 16:50] LABS: Absolute Lymphocytes (CBC) 1.1 K/uL (0.7-4.9); Absolute Monocytes 0.7 K/uL (0.1-1.3); Absolute Neutrophil 3.9 K/uL (1.8-8.0); Basophils % 1.2 % (0-1.3); Eosinophils % 3.9 % (0-4.4); Hematocrit 26.5 % (39.6-49.0); Lymphocytes % 18.8 % (15.3-44.8); MCV 86.5 fL (80-100); MPV 7.1 fL (7.6-11.3); Monocytes % 11.7 % (3.3-12.3); RBC Red Blood Cell Count 3.07 M/uL (4.33-5.43)
[2018-01-25] MEDS ORDERED: NACHLORIDE 0.45% 1,000 ML IV SCH (17:00)
[2018-01-25] MEDS ORDERED: PNEUMOCOCCAL VACCINE 0.5 ML IMVAC ONE (17:00)
[2018-01-25] MEDS ORDERED: ENOXAPARIN 30 MG/0.3 ML SQ SCH (17:00)
[2018-01-25 17:25] LABS: Potassium 5.2 mEq/L (3.6-5.0)
[2018-01-25 17:30] LABS: Albumin 2.6 g/dL (3.2-5.5); Bilirubin Direct 0.1 mg/dL (0-0.2); Bilirubin Total 0.6 mg/dL (0.3-1.2); Magnesium 1.5 mg/dL (1.8-2.5); Phosphorus 6.6 mg/dL (2.5-4.3); Protein, Total 6.6 g/dL (6.0-8.3)
[2018-01-25 18:03] LABS: Thyroid Stimulating Hormone 3.76 uIU/mL (0.34-5.60)
[2018-01-25] MEDS: HYDROMORPHONE HCL 2 MG/ML inj IV PRN ×2 (18:03→22:31)
[2018-01-25] MEDS: METRONIDAZOLE 500mg IVPB 500 MG/100 ML BAG IV SCH (18:13)
[2018-01-25] MEDS ORDERED: GLUCAGON 1 MG/VIAL IM PRN (18:30)
[2018-01-25] MEDS ORDERED: D50W 25 GM/50 ML SYRINGE IV PRN (18:30)
[2018-01-25 18:54] LABS: Protime INR 1.08
--- NOTE | 2018-01-25 19:20 | RAD REPORT ---
EXAM DESCRIPTION: CT - Abdomen W Contrast - 01/25/2018 6:58 pm CLINICAL HISTORY: Right upper quadrant pain, possible cholangitis, possible peritonitis, provided h istory indicates peritoneal dialysis patient COMPARISON: Renal ultrasound July 2017, CT chest August 2017 TECHNIQUE: Biphasic, helical CT imaging of the abdomen was performed following oral and 100 ml non-i onic IV contrast. All CT scans are performed using dose optimization technique as appropriate and may include automated exposure control or mA/KV adjustment according to patient size. FINDINGS: Small bilateral pleural effusions are present. There is pleural thickening and subpleural parenchymal nodularity and stranding present. Findings are significantly improved from the August 26 study. Minimal pericardial effusion. The liver, spleen, and pancreas show no suspicious findings. Cholecystectomy clips are present. There is no biliary tree dilatation. No wall thickening, edema or enhancement of the biliary tree. There i s no stranding in the adjacent fatty tissues. No peripancreatic edema or stranding. No hydronephrosis. No suspicious renal mass. No enhancement abnormality of the renal parenchyma. No a ttenuation changes between the arterial and venous phase imaging indicating little or no renal functi on. No adrenal gland abnormality. No dilated bowel loops or bowel wall thickening. No free air, free fluid or inflammatory stranding. No hernia, mass or bulky lymphadenopathy. No suspicious bony findings. IMPRESSION: Patient is status post cholecystectomy. There is no biliary tree dilatation and no bilia ry tree wall thickening, enhancement or adjacent edema. No acute pancreatic process. No abnormality seen to explain right upper quadrant symptoms. Pleural effusions and pleural thickening in each base. Sub pleural parenchymal nodularity also presen t. These findings are all improved compared to August 2017.
--- NOTE | 2018-01-25 19:22 | RAD REPORT ---
EXAM DESCRIPTION: RAD - Chest Pa And Lat (2 Views) - 01/25/2018 7:10 pm CLINICAL HISTORY: Abdominal pain COMPARISON: CT abdomen same date, CT chest August 2017, chest exam December 12 TECHNIQUE: PA and lateral views of the chest were obtained. FINDINGS: The lungs are underinflated. Lung base pleural and parenchymal opacification are present s imilar to the November examination. Heart size is normal. No pneumothorax. No acute bony finding noted . No aortic abnormality. IMPRESSION: Chronic pleural and parenchymal opacification similar to December 12 examination.
[2018-01-25] MEDS ORDERED: SOD POLYSTYREN SUL 15 GM/60 ML UCUP PO ONE (20:19)
[2018-01-25 20:31] LABS: Urine Appearance CLEAR; Urine Bilirubin NEGATIVE (NEG); Urine Blood 3+ (NEG); Urine Color YELLOW; Urine Glucose 1+ (NEG); Urine Protein 3+ (NEG); Urine Specific Gravity 1.015 (1.005-1.030); Urine Urobilinogen 0.2 mg/dL (0.2-1.0); Urine pH 7.5 (5.0-7.0)
[2018-01-25 20:33] LABS: Urine Microscopic Reflex ORDER UMIC
[2018-01-25] MEDS ORDERED: SODIUM CHLORIDE 0.9% 10ML INJ IV PRN (20:42)
[2018-01-25 20:43] LABS: Urine Bacteria <20 /HPF (NONE SEEN); Urine Culture Reflex Order REFLEXED; Urine RBC TNTC /HPF (NONE SEEN)
[2018-01-25] MEDS: IPRATROPIUM BROM 0.5MG/2.5ML IH SCH (20:59)
[2018-01-25] MEDS: ALBUTEROL 2.5 MG/3 ML NEB SOL IH SCH (20:59)
[2018-01-25] MEDS ORDERED: INSULIN -REGULAR HUMAN 50 UNIT/0.5 ML ML SQ SCH (21:00)
[2018-01-25] MEDS: CEFOXITIN/SWI 1gm 1 GM/10 ML SYR IVP SCH (21:31)
[2018-01-26] MEDS: METRONIDAZOLE 500mg IVPB 500 MG/100 ML BAG IV SCH ×5 (00:11→23:15)
[2018-01-26] MEDS: IPRATROPIUM BROM 0.5MG/2.5ML IH SCH ×4 (01:18→19:55)
[2018-01-26] MEDS: ALBUTEROL 2.5 MG/3 ML NEB SOL IH SCH ×4 (01:18→19:55)
[2018-01-26 05:28] LABS: Absolute Lymphocytes (CBC) 0.5 K/uL (0.7-4.9); Absolute Monocytes 0.5 K/uL (0.1-1.3); Absolute Neutrophil 3.6 K/uL (1.8-8.0); Basophils % 0.8 % (0-1.3); Lymphocytes % 10.5 % (15.3-44.8); MCH 28.8 pg (27.0-35.0); MCV 86.8 fL (80-100); MPV 7.6 fL (7.6-11.3); Monocytes % 10.8 % (3.3-12.3); RBC Red Blood Cell Count 2.65 M/uL (4.33-5.43)
[2018-01-26 05:52] LABS: Magnesium 1.6 mg/dL (1.8-2.5)
[2018-01-26 05:58] LABS: Potassium 5.7 mEq/L (3.6-5.0)
[2018-01-26] MEDS ORDERED: MAGNESIUM SULFATE 1 gm IVPB 1 GM/100 ML BAG IV ONE (06:10)
[2018-01-26] MEDS ORDERED: INSULIN -REGULAR HUMAN 50 UNIT/0.5 ML ML IV ONE (06:32)
[2018-01-26] MEDS ORDERED: SODIUM CHLORIDE 0.9% 10ML INJ IV PRN (06:34)
[2018-01-26] MEDS ORDERED: FUROSEMIDE 40 MG/4 ML VIAL IV ONE (06:35)
[2018-01-26] MEDS ORDERED: METOCLOPRAMIDE 10 MG/2mL INJ IV PRN (06:38)
[2018-01-26] MEDS ORDERED: ALBUTEROL 2.5 MG/3 ML NEB SOL NEB ONE (06:43)
--- NOTE | 2018-01-26 06:44 | EKG ---
Test Date: 2018-01-25 Test Time: 17:10:57 Tank Builder Helper: MANJU MEASUREMENT RESULTS: Intervals: Rate: 70 AL: 146 QRSD: 78 QT: 414 QTc: 447 [place]: P: 69 AL: 146 QRS: 97 T: 51 INTERPRETIVE STATEMENTS: Normal sinus rhythm Possible Left atrial enlargement Rightward axis Borderline ECG Compared to ECG 12/12/2017 15:09:00 Right-axis deviation now present Electronically Signed On 01-26-18 06:43:47 CDT by Bong Coleman
[2018-01-26] MEDS: INSULIN -REGULAR HUMAN 50 UNIT/0.5 ML ML SQ SCH ×4 (08:11→21:00)
[2018-01-26] MEDS: CEFOXITIN/SWI 1gm 1 GM/10 ML SYR IVP SCH ×2 (08:12→20:44)
[2018-01-26] MEDS: INSULIN DETEMIR 100 UNIT/1 ML INSULIN SQ SCH (08:12)
[2018-01-26] MEDS: BUMETANIDE 1 MG/4 ML VIAL IV SCH ×2 (08:13→22:34)
[2018-01-26] MEDS: METOLAZONE 5 MG TABLET PO SCH ×2 (08:13→20:43)
[2018-01-26] MEDS: PANTOPRAZOLE 40 MG INJ IVP SCH ×2 (08:14→20:44)
[2018-01-26] MEDS ORDERED: PANTOPRAZOLE 40 MG INJ IVP SCH (09:00)
[2018-01-26] MEDS ORDERED: NA CHLORIDE 0.9% 250 ML ONE (10:53)
[2018-01-26] MEDS: ACETAMINOPHEN 325 MG TABLET PO PRN ×2 (11:00→18:10)
--- NOTE | 2018-01-26 14:02 | P.PN ---
Subjective Date of Service: 01/26/18 Chief Complaint: PAIN RUQ Subjective: Improving Review of Systems 10-point ROS is otherwise unremarkable General: Weakness, Malaise Gastrointestinal: Abdominal Pain (RUQ, MILD, ON BREATHING.) Physical Examination - Vital Signs Temperature: 99.4 F Blood Pressure: 137/65 Pulse: 83 Respirations: 16 Pulse Ox (%): 93 - Physical Exam General: Alert, In no apparent distress HEENT: Atraumatic, PERRLA, EOMI Neck: Supple, JVD not distended Respiratory: Diminished Cardiovascular: Regular rate/rhythm, Normal S1 S2 Gastrointestinal: Tenderness (RUQ MILD TENDER.) Musculoskeletal: No tenderness Integumentary: No rashes Neurological: Normal speech, Normal tone, Normal affect Lymphatics: No axilla or inguinal lymphadenopathy - Studies Laboratory Data (last 24 hrs) 01/26/18 04:42: Sodium 135, Potassium 5.7 H*, BUN 58 H, Creatinine 8.26 H*, Glucose 395 H, Magnesium 1.6 L 01/26/18 04:42: WBC 4.7 D, Hgb 7.6 L*, Hct 23.0 L, Plt Count 236 01/25/18 16:35: PT 12.7 H, INR 1.08, APTT 40.3 H 01/25/18 16:35: Sodium 139, Potassium 5.2 H, BUN 60 H, Creatinine 8.27 H*, Glucose 140 H, Phosphorus 6.6 H, Magnesium 1.5 L, Total Bilirubin 0.6, AST 18, ALT 16, Alkaline Phosphatase 121 01/25/18 16:35: WBC 6.0, Hgb 8.6 L, Hct 26.5 L, Plt Count 279 Medications List Reviewed: Yes Assessment And Plan - Current Problems (Diagnosis) (1) CKD stage 5 secondary to hypertension Current Visit: Yes Status: Chronic Plan: ON HD. (2) Right upper quadrant pain Onset Date: 01/26/18 Current Visit: Yes Status: Acute Plan: GI MD,BUT NO ONE IS AVAILABLE. HE IS ON PROTONIX IV. CT NEGATIVE. EGD PENDING. (3) Diabetes type 2, uncontrolled Current Visit: No Status: Chronic Plan: FINGERSTICKS AND SL SCALE.
[2018-01-26] MEDS ORDERED: DRISDOL (VITAMIN D=ERGOCALCIFEROL) 50000 UNIT CAP PO SCH (17:00)
[2018-01-26 17:15] LABS: Hematocrit 27.7 % (39.6-49.0)
[2018-01-26] MEDS ORDERED: EPOETIN ALFA 10,000 UNIT/ML VIAL SQ ONE (23:00)
[2018-01-27] MEDS: ALBUTEROL 2.5 MG/3 ML NEB SOL IH SCH ×3 (01:24→14:00)
[2018-01-27] MEDS: IPRATROPIUM BROM 0.5MG/2.5ML IH SCH ×3 (01:24→14:00)
[2018-01-27] MEDS: ACETAMINOPHEN 325 MG TABLET PO PRN ×2 (03:02→09:57)
[2018-01-27] MEDS: HYDROMORPHONE HCL 2 MG/ML inj IV PRN (03:08)
--- NOTE | 2018-01-27 03:48 | CON ---
Date of Consultation: 01/26/2018 Additional Consulting Physician: Dante Best M.D. Reason For Consultation: Fluid management, elevated BUN and creatinine, dialysis management. History Of Present Illness: This is a pleasant 57-year-old gentleman with significant past medical h istory of hypertension, diabetes complicated with neuropathy and nephropathy, coronary artery disease complicated with congestive heart failure status post NH, and end-stage renal disease, on PD. The valente rousseau came to the hospital complaining of chest pain, found to have low H and H. For that reason, t he patient admitted. The patient denies any melena. The patient had diarrhea for the last couple of days. No nausea. No vomiting. The patient has poor compliant with the fluid restriction. We admit the patient. We will continue valente rousseau on PD, using 4.25 and we start aggressive diuresis. The patient is feeling better. Shortness of breath has been better, but his H and H have been dropped. The patient is going to be seen by GI . Past Medical History: Include, 1.Hypertension. 2.Diabetes complicated with neuropathy and nephropathy. 3.Coronary artery disease status post NH complicated with congestive heart failure. 4.End-stage renal disease, on PD. Social History: Active smoker active alcohol. Denies drug abuse. Allergies: NO KNOWN DRUG ALLERGIES. Past Surgical History: Include appendectomy, PermCath placement and removal, cholecystectomy, amputa tion of the right big toe, and PD catheter placement. Family History: Positive for diabetes and hypertension. Home Medications: Include metoprolol 50, metolazone, Bumex, allopurinol, lisinopril 20, codeine, and tramadol. Current medications in the hospital include Bumex 2 mg b.i.d., metolazone 5 mg b.i.d., pa ntoprazole, albuterol, cefoxitin, ergocalciferol, hydralazine, insulin, and loperamide. Review of Systems: Head and Neck: No red eye. No ear pain. GI: No nausea, no vomiting. : No polyuria. No dysuria. No hematuria. FINISHING MACHINE OPERATOR: Not applicable. Respiratory: No shortness of breath. Cardiovascular: Has chest tightness. Has leg swelling. Endocrine: No polydipsia. Skin: No rash. Physical Examination: Vital Signs: Blood pressure 174/68, pulse of 80. Chest: Clear to auscultation. Heart: S1, S2. Systolic murmur. Abdomen: Soft, nontender. Extremities: +1 edema. Laboratory Data: H and H 06/21.7. Sodium 135, potassium 5.7, bicarb 27, BUN 58, creatinine 8.2. Had an episode of low blood sugar. Calcium 7.6. Assessment And Plan: 1.End-stage renal disease, slightly on the wet side. I going to continue aggressive diuresis. We c ontinue ultrafiltration using 4.25. 2.Hypertension. We will utilize blood pressure for more diuresis. I am going to start the patient on nitroglycerin. 3.Anemia of chronic kidney disease. We will give the patient Epogen. 4.We will follow up with the GI evaluation. 5.Diabetes as by primary. 6.Coronary artery disease, stable. We will follow up with the primary. Case was discussed with the patient who verbalized understanding. YANIRA Voice ID: [id number] Report ID: [id number]
[2018-01-27] MEDS: METRONIDAZOLE 500mg IVPB 500 MG/100 ML BAG IV SCH ×2 (05:27→12:50)
[2018-01-27 05:49] LABS: Absolute Lymphocytes (CBC) 0.7 K/uL (0.7-4.9); Absolute Monocytes 0.8 K/uL (0.1-1.3); Absolute Neutrophil 4.8 K/uL (1.8-8.0); Basophils % 0.7 % (0-1.3); Eosinophils % 2.8 % (0-4.4); Hematocrit 27.7 % (39.6-49.0); Lymphocytes % 10.2 % (15.3-44.8); MCH 28.2 pg (27.0-35.0); MCV 85.9 fL (80-100); MPV 7.4 fL (7.6-11.3); Monocytes % 12.1 % (3.3-12.3); RBC Red Blood Cell Count 3.23 M/uL (4.33-5.43)
[2018-01-27 06:21] LABS: Magnesium 1.7 mg/dL (1.8-2.5); Potassium 5.2 mEq/L (3.6-5.0)
[2018-01-27] MEDS ORDERED: GUAIFENESIN/DM 5 ML UCUP PO PRN (06:23)
[2018-01-27] MEDS ORDERED: MAGNESIUM SULFATE 1 gm IVPB 1 GM/100 ML BAG IV ONE (06:36)
[2018-01-27] MEDS: INSULIN -REGULAR HUMAN 50 UNIT/0.5 ML ML SQ SCH ×2 (07:30→11:30)
[2018-01-27 07:55] VITALS: BMI 31.2
[2018-01-27] MEDS: INSULIN DETEMIR 100 UNIT/1 ML INSULIN SQ SCH (08:52)
[2018-01-27] MEDS: METOLAZONE 5 MG TABLET PO SCH (08:53)
[2018-01-27] MEDS: CEFOXITIN/SWI 1gm 1 GM/10 ML SYR IVP SCH (08:56)
[2018-01-27] MEDS ORDERED: NITROGLYCERIN 0.2 MG/HR (5 MG) PATCH TD SCH (09:00)
[2018-01-27] MEDS ORDERED: TRAMADOL HCL 50 MG TAB PO PRN (09:01)
[2018-01-27] MEDS: PANTOPRAZOLE 40 MG INJ IVP SCH (09:56)
[2018-01-27] MEDS: BUMETANIDE 1 MG/4 ML VIAL IV SCH (09:57)
[2018-01-27] MEDS ORDERED: ALBUTEROL INHALER 60 PUFF/8 GM IH PRN (11:45)
[2018-01-27] MEDS ORDERED: BUMETANIDE 1 MG TABLET PO SCH (12:00)
[2018-01-27] MEDS ORDERED: VALSARTAN 160 MG TAB PO SCH (12:00)
--- NOTE | 2018-01-27 12:17 | CON ---
Date of Consultation: 01/25/2018 Reason For Consultation: Abdominal pain. History Of Presenting Illness: The patient is a 57-year-old gentleman with past medical history of h ypertension, diabetes complicated with neuropathy, coronary artery disease, congestive heart failure, status post DE, end-stage renal disease, on peritoneal dialysis, came to the hospital with complaint s of chest pain and chest pain epigastric and pain in the right upper quadrant, he was admitted [facility] from Dr. Best's office due to chest and abdominal pain. When I saw the patient, patient denied any pain at this time. He says he feels much better. In regard to the pain he said it gets worse on taking a deep breath and no relation to eating, no relation to bowel movements. Bowels are regular. No vomiting. He also denies hematemesis, melena, or hematochezia. Past Medical History: As above. Past Surgical History: Appendectomy, PermCath placement and removal, cholecystectomy, right toe ampu tation, Family History: Noncontributory. Social History: Denies toxic habits. Review of Systems: GI: As in HPI. Otherwise, negative. Cardiovascular: As in HPI. Otherwise, negative. Remainder of 10-point review of system is negative. Physical Examination: Vital Signs: Reviewed. He is normotensive, not tachycardic, not tachypneic. He is afebrile at this time. HEENT: Head atraumatic, normocephalic. Pupils equally reactive. Neck: Supple. Chest: Clear to auscultation bilaterally. Abdomen: Soft, nontender, nondistended. Bowel sounds present. He is obese. Extremities: There is trace pedal edema. Laboratory Data: Hemoglobin 8.6, it is low, but it is consistent with his past values. There does n ot seem to be a big acute drop. His liver enzymes are normal. There is significant hypokalemia and mildly decreased albumin. Imaging reviewed. He had a CT of the abdomen. Biliary tree appears to be normal. No other acute GI pathology. Impression: A 57-year-old gentleman with chest and abdominal pain, unlikely related to GI as it more like appears to be more related to inspiration and movement probably pleurisy or musculoskeletal cou ld be considered; however, the pain has decreased significantly at this point in time. He does seem to have mild urinary infections and he is already on antibiotics for that. Plan: We will advance his diet to soft. Continue current management. He is on oral PPI, which I wi ll continue. In regard to the anemia it likely related to chronic disease, but he would require endo scopy workup as last time it was probably 3 years ago. He is going to come and see us in the clinic after discharge. This was discussed with the patient. He understands and agrees with the plan of florina SINGLETON/QUINTIN Voice ID: [id number] Report ID: [id number]
--- NOTE | 2018-01-27 12:39 | P.DS ---
Admission Date: 01/25/18 Discharge Date: 01/27/18 Disposition: ROUTINE DISCHARGE Discharge Condition: FAIR Reason for Admission: PAIN RUQ - Problems (1) CKD stage 5 secondary to hypertension Current Visit: Yes Status: Chronic (2) Right upper quadrant pain Onset Date: 01/26/18 Current Visit: Yes Status: Acute (3) Diabetes type 2, uncontrolled Current Visit: No Status: Chronic Hospital Course: MR LYLES COMES WITH SEVERE RUQ PAIN, HE HAS ALREADY HAD CHOLECYSTECTOMY DONE IN THE PAST. HE DID NOT SHOW ANY SIGNS OF INFECTION. HIS HG DROPPED TO 7.6 GMS. I GAVE HIM PROTONIX IV. CONSULTED GI. HE WILL HAVE EGD OP. HE WAS GIVEN TWO UNITS OF PACKED RBCS. HE IS STABLE TO GO HOME. Vital Signs/Physical Exam: Temp Pulse Resp BP Pulse Ox 99.2 F 87 18 189/90 H 94 01/27/18 08:00 01/27/18 09:57 01/27/18 08:00 01/27/18 09:57 01/27/18 08:00 Laboratory Data at Discharge: WBC 6.5 K/uL (4.3-10.9) D 01/27/18 05:17 Hgb 9.0 g/dL (13.6-17.9) L 01/27/18 09:25 Hct 27.7 % (39.6-49.0) L 01/27/18 05:17 Plt Count 271 K/uL (152-406) 01/27/18 05:17 PT 12.7 SECONDS (9.5-12.5) H 01/25/18 16:35 INR 1.08 01/25/18 16:35 APTT 40.3 SECONDS (24.3-36.9) H 01/25/18 16:35 Sodium 139 mEq/L (135-145) 01/27/18 05:17 Potassium 5.2 mEq/L (3.6-5.0) H 01/27/18 05:17 BUN 58 mg/dL (6-20) H 01/27/18 05:17 Creatinine 8.22 mg/dL (0.61-1.24) H* 01/27/18 05:17 Glucose 203 mg/dL (65-120) H 01/27/18 05:17 Phosphorus 6.6 mg/dL (2.5-4.3) H 01/25/18 16:35 Magnesium 1.7 mg/dL (1.8-2.5) L 01/27/18 05:17 Total Bilirubin 0.6 mg/dL (0.3-1.2) 01/25/18 16:35 AST 18 IU/L (10-42) 01/25/18 16:35 ALT 16 IU/L (10-60) 01/25/18 16:35 Alkaline Phosphatase 121 IU/L (42-121) 01/25/18 16:35 Home Medications: Insulin Glargine Human [Lantus*] 35 units SQ DAILY 05/15/12 Gabapentin [Neurontin] 600 mg PO TID 03/09/16 Tramadol HCl [Ultram] 50 mg PO BID PRN 12/25/16 Valsartan 320 mg PO [id number] 12/25/16 Furosemide [Lasix*] 40 mg PO DAILY 12/06/17 Albuterol Sulfate [Proair Hfa] 2 puff IH Q6H PRN 12/12/17 Codeine/APAP [Tylenol W/Codeine #3 tab] 1 tab PO Q4H PRN 12/12/17 Duloxetine [Cymbalta *] 30 mg PO DAILY 12/12/17 Hydralazine HCl [Apresoline] 100 mg PO TID 12/12/17 Lactulose 10 gm PO BEDTIME 12/12/17 Lisinopril [Prinivil*] 20 mg PO DAILY 12/12/17 Mirtazapine 7.5 mg PO BEDTIME 12/12/17 Metoprolol Succinate [Toprol Xl*] 50 mg PO DAILY tab 12/14/17 Nifedipine Xl [Procardia XL*] 60 mg PO DAILY #30 tab 12/14/17 Bumetanide [Bumex] 1 mg PO BID 01/25/18 Patient Discharge Instructions: NO CHANGES IN MEDS. VISIT GI DOCTOR FOR EGD COMING WEEK. BUY OMEPRAZOLE 20 MG DAILY OTC. Diet: Renal Activity: Ad dwain
[2018-01-27 12:58] VITALS: TEMP 99.9
[2018-01-27 13:23] VITALS: O2SAT 94
[2018-01-27] MEDS ORDERED: HYDRALAZINE HCL 25 MG TABLET PO SCH (14:00)
[2018-01-27] MEDS ORDERED: HOME MED 1 EA UNK (Gabapentin [Neurontin] 600 MG) PO SCH (14:00)
[2018-01-27] MEDS ORDERED: HOME MED 1 EA UNK (Hydralazine Hcl [Apresoline] 100 MG) PO SCH (14:00)
[2018-01-27] MEDS ORDERED: GABAPENTIN 300 MG CAP PO SCH (14:00)
[2018-01-27 14:21] VITALS: BP 160/60
[2018-01-27] MEDS ORDERED: MIRTAZAPINE 15 MG TAB PO SCH (21:00)
[2018-01-27] MEDS ORDERED: LACTULOSE 20 GM/30 ML UCUP PO SCH (21:00)
[2018-01-27] MEDS ORDERED: HOME MED 1 EA UNK (Mirtazapine [Mirtazapine] 7.5 MG) PO SCH (21:00)
[2018-01-27] MEDS ORDERED: BUMETANIDE 1 MG PO SCH (21:00)
[2018-01-27] MEDS ORDERED: HOME MED 1 EA UNK (Lactulose [Lactulose] 10 GM) PO SCH (21:00)
--- NOTE | 2018-01-28 01:28 | PN ---
Date of Progress Note: 01/27/2018 Subjective: The patient is status post . The patient had ultrafiltration of 1 L and had u rine output of 1 L but still edematous on the lower part of the abdomen. Physical Examination: Chest: Clear to auscultation. Still congestive chest. Crackles, bilateral base. Heart: S1, S2. Regular. Abdomen: Soft, nontender. Extremities: +1 edema. Laboratory Data: WBC 6.5, H and H 9.1/27.7, platelet 271. Sodium 139, potassium 5.2, bicarbonate 27 . BUN 58, creatinine 8.2. Calcium 8.1, magnesium 1.7. Current Medications: The patient on includes, 1.Metolazone 5 mg b.i.d. 2.Bumex 2 mg b.i.d. 3.Nitroglycerin. 4.Cefazolin. 5.Ergocalciferol. 6.Guaifenesin. 7.Ipratropium. 8.Lisinopril 20 daily. 9.Metolazone. 10.Metoclopramide. Assessment And Plan: 1.End-stage renal disease, slightly on the wet side. Continue current dialysis regimen. We will re inforce the fluid restriction. 2.Hypertension, controlled, optimal. Continue current medication. 3.Anemia of chronic kidney disease. Continue Epogen. 4.Hyperkalemia, resolved. 5.Chest pain, atypical. 6.Gastritis, seen by GI. Plan for outpatient workup. YANIRA Voice ID: [id number] Report ID: [id number]
[2018-01-28] MEDS ORDERED: HOME MED 1 EA UNK (Valsartan [Valsartan] 320 MG) PO SCH (06:00)
[2018-01-28] MEDS ORDERED: LISINOPRIL 20 MG TAB PO SCH (09:00)
[2018-01-28] MEDS ORDERED: NIFEDIPINE XL 60 MG TABLET PO SCH (09:00)
[2018-01-28] MEDS ORDERED: METOPROLOL XL 50 MG TAB PO SCH (09:00)
[2018-01-28] MEDS ORDERED: DULOXETINE 30 MG CAP PO SCH (09:00)
[2018-01-28] MEDS ORDERED: INSULIN GLARGINE SQ SCH (09:00)
[2018-01-28] MEDS ORDERED: FUROSEMIDE 40 MG TABLET PO SCH (09:00)
[2018-01-29 03:15] LABS: HBsAG Nonreactive (Nonreactive)
== END 2018-01-27 14:29 | disposition home or self-care (01) ==
LOC: 4TH 15:50
PROVIDERS: ADMIT Internal Medicine; ATTEND Internal Medicine
PROC: 30233N1 Transfusion of Nonautologous Red Blood Cells into Peripheral Vein, Percutaneous Approach (ICD-10-PCS; principal; 2018-01-26)
DX: R10.11 Right upper quadrant pain (principal); R07.89 Other chest pain; I13.2 Hypertensive heart and chronic kidney disease with heart failure and with stage 5 chronic kidney disease, or end stage renal disease; E11.22 Type 2 diabetes mellitus with diabetic chronic kidney disease; E11.65 Type 2 diabetes mellitus with hyperglycemia; N18.6 End stage renal disease; I50.9 Heart failure, unspecified; D63.1 Anemia in chronic kidney disease; I25.10 Atherosclerotic heart disease of native coronary artery without angina pectoris; E11.40 Type 2 diabetes mellitus with diabetic neuropathy, unspecified; E87.5 Hyperkalemia
CPT/HCPCS: 36415; 71046; 74160; 80048; 80076; 81003; 81015; 82306; 82607; 82962; 83735; 84100; 84443; 85014; 85018; 85025; 85610; 85730; 86704; 86706; 86803; 86850; 86900; 86901; 87040; 87086; 87088; 87340; 93005; 94640; C9113; G0009; G0378; J1170; J1650; J2405; J2765; J3475; P9016; Q4081; Q9967

== ENCOUNTER 2018-07-15 16:28 | Inpatient (IN) | payer BC, OTHER ==
--- OUTSIDE RECORDS SUMMARY | 2018-07-15 16:31 | XMS REPORT | Clinical Summary ---
:1960 Author Organization [facility] Address [address] [place] [address] Care Team Providers Name Role Phone Dante Best MD Primary Care Provider Allergies No Known Allergies Current Medications Prescription Sig. Disp. Refills Start Date End Date Status metoprolol Take 50 mg by 0 10/30/2017 Active succinate XL mouth daily. (TOPROL-XL) 50 mg 24 hr tablet INSULIN Inject 40 Active GLARGINE,HUM.REC.A Units under NLOG (LANTUS SUBQ) the skin daily. metOLazone Take 5 mg by Active (ZAROXOLYN) 5 MG mouth 2 (two) tablet times a day. (take before bumetanide) BUMETanide (BUMEX) Take 2 mg by Active 2 MG tablet mouth 2 (two) times a day. NIFEdipine CC Take 60 mg by Active (ADALAT CC) 60 MG mouth daily. 24 hr tablet furosemide (LASIX) Take 40 mg by Active 40 mg tablet mouth daily. DULoxetine Take 30 mg by Active (CYMBALTA) 30 MG mouth daily. capsule hydrALAZINE Take 100 mg by Active (APRESOLINE) 100 mouth 3 MG tablet (three) times a day. valsartan (DIOVAN) TK 1 T PO QD 3 07/31/2017 01/31/2018 Discontinued 160 MG tablet hydrALAZINE TK 1 T PO TID 3 10/19/2017 01/31/2018 Discontinued (APRESOLINE) 100 MG tablet DULoxetine TK ONE C PO 5 08/27/2017 01/31/2018 Discontinued (CYMBALTA) 30 MG QD capsule acetaminophen-code Take 1-2 30 tablet 0 11/07/2017 11/14/2017 ine (TYLENOL WITH tablets by CODEINE #3) 300-30 mouth every 6 mg per tablet (six) hours as needed for moderate pain for up to 7 days. docusate sodium Take 1 capsule 14 capsule 0 11/07/2017 11/14/2017 (COLACE) 100 MG (100 mg total) capsule by mouth 2 (two) times a day for 7 days. sevelamer Take 1,600 mg 02/05/2018 Discontinued (RENVELA) 800 mg by mouth 3 tablet (three) times a day with meals. gabapentin Take 600 mg by 02/05/2018 Discontinued (NEURONTIN) 600 mg mouth 3 tablet (three) times a day. valsartan (DIOVAN) Take 320 mg by 02/05/2018 Discontinued 320 MG tablet mouth daily. sucralfate Take 10 mL (1 280 mL 0 02/05/2018 02/05/2018 Discontinued (CARAFATE) 100 g total) by mg/mL suspension mouth 4 (four) times a day before meals and nightly for 7 days. gabapentin Take 1 capsule 60 capsule 0 02/05/2018 02/05/2018 Discontinued (NEURONTIN) 300 mg (300 mg total) capsule by mouth 2 (two) times a day for 30 days. sevelamer Take 4 tablets 360 tablet 0 02/05/2018 02/05/2018 Discontinued (RENVELA) 800 mg (3,200 mg tablet total) by mouth 3 (three) times a day with meals for 30 days. multivitamin Take 1 tablet 30 tablet 0 02/06/2018 02/05/2018 Discontinued (THERAGRAN) tablet by mouth daily for 30 days. aspirin 81 mg Chew 1 tablet 30 tablet 0 02/06/2018 02/05/2018 Discontinued chewable tablet (81 mg total) daily for 30 days. valsartan (DIOVAN) Take 1 tablet 30 tablet 0 02/05/2018 02/05/2018 Discontinued 160 MG tablet (160 mg total) by mouth daily for 30 days. sucralfate Take 10 mL (1 280 mL 0 02/05/2018 02/12/2018 (CARAFATE) 100 g total) by mg/mL suspension mouth 4 (four) times a day before meals and nightly for 7 days. gabapentin Take 1 capsule 60 capsule 0 02/05/2018 03/07/2018 (NEURONTIN) 300 mg (300 mg total) capsule by mouth 2 (two) times a day for 30 days. valsartan (DIOVAN) Take 1 tablet 30 tablet 0 02/05/2018 03/07/2018 160 MG tablet (160 mg total) by mouth daily for 30 days. sevelamer Take 4 tablets 360 tablet 0 02/05/2018 03/07/2018 (RENVELA) 800 mg (3,200 mg tablet total) by mouth 3 (three) times a day with meals for 30 days. multivitamin Take 1 tablet 30 tablet 0 02/06/2018 03/08/2018 (THERAGRAN) tablet by mouth daily for 30 days. aspirin 81 mg Chew 1 tablet 30 tablet 0 02/06/2018 03/08/2018 chewable tablet (81 mg total) daily for 30 days. Active Problems Problem Noted Date History of blood transfusion Overview: in July-2017. Wears glasses Never exercises Immunizations up to date ESRD (end stage renal disease) on dialysis (HCC) Resolved Problems Problem Noted Date Resolved Date Skin infection 01/31/2018 02/05/2018 Encounters Date Type Specialty Care Team Description 06/15/2018 Documentation Transplant Monica Mari LMSW 06/15/2018 Documentation Transplant Monica Mari LMSW 06/15/2018 Documentation Transplant Monica Mari LMSW 05/31/2018 Hospital Encounter Transplant Rolf Thayer Left without seen MD Domingo Reis Cynthia 05/31/2018 Hospital Encounter Radiology Alicia Cortez ESRD (end stage renal MD Ruthie disease) 05/31/2018 Hospital Encounter Radiology Alicia Cortez ESRD (end stage renal MD Ruthie disease) 05/31/2018 Hospital Encounter Procedural Alicia Cortez ESRD (end stage renal Cardiology MD Ruthie disease) 05/31/2018 Hospital Encounter Transplant Rolf Thayre MD 05/31/2018 Hospital Encounter Transplant Beatriz Xie ESRD (end stage renal MD Aamir disease) 05/14/2018 Documentation Transplant Tate, Consent Forms Ban (Scanned Consent For Kidney Transplant Evaluation, Pre Txp Education, KATHRYN & Preferred Telephone Contacts in Media. 05-10-2018) 05/10/2018 Hospital Encounter Transplant Beatriz Xie ESRD (end stage renal MD Aamir disease) 05/10/2018 Hospital Encounter Transplant Beatriz Xie ESRD (end stage renal MD Aamir disease) (Primary Dx) Alicia Cortez MD 05/10/2018 Hospital Encounter Transplant Rolf Thayer MD 05/10/2018 Hospital Encounter Transplant Asked, No Pcp Rolf Thayer MD 05/10/2018 Telephone Transplant Isabelle Zamarripa Pre-kidney full eval day 1 04/05/2018 Telephone Transplant Qian Maxwell MA Reschedule Appts 03/02/2018 Telephone Transplant Thania Montgomery MA Reschedule Appointments 02/27/2018 Hospital Encounter Transplant Asked, No Pcp No Show 02/27/2018 Hospital Encounter Transplant Asked, No Pcp No Show 02/09/[address], TXP- BCBS OF [place] & MCR Kelsey AB- RENAL TXP EVAL APPVL 02/02/2018 Telephone Transplant Leann Moore Referral - Kidney Txp RN 01/31/2018 Hospital Encounter General Internal Andrew Rogers, Skin infection (Primary Dx); - Medicine DO ESRD (end stage renal disease); 02/05/2018 Alicia, Mustaq Cerebrovascular accident (CVA), unspecified mechanism MD Zaid 01/31/2018 Procedure Pass General Internal Medicine 01/31/2018 Procedure Pass General Internal Medicine 01/31/2018 Procedure Pass General Internal Medicine 11/07/2017 Hospital Encounter General Surgery Julio Roman MD 11/07/2017 Procedure Pass General Surgery 11/07/2017 Surgery General Surgery Abel, LAPAROSCOPIC Julio Lilly MD PERITONEAL DIALYSIS CATHETER PLACEMENT 11/03/2017 Anesthesia Event General Surgery Shirley Prajapati, COMMANDER INTERNAL AFFAIRS 11/02/2017 Pre-Admit Testing Pre-Admission Abel, Preop testing Appointment Testing Julio Lilly MD (Primary Dx) 11/02/2017 Office Visit General Surgery Abel, End-stage renal Julio Lilly MD disease (Primary Dx) after 07/14/2017 Family History Medical History Relation Name Comments Diabetes Brother Cirrhosis Brother Diabetes Brother Heart disease Father Hypertension Father Stroke Father Diabetes Mother Hypertension Mother Kidney disease Mother Relation Name Status Comments Brother Brother Alive Brother Father Mother Social History Tobacco Use Types Packs/Day Years Used Date Former Smoker Cigarettes 0.25 Quit: 01/24/2016 Smokeless Tobacco: Never Used Alcohol Use Drinks/Week oz/Week Comments No stopped in july 2017. Sex Assigned at Date Recorded Not on file Last Filed Vital Signs Vital Sign Reading Time Taken Blood Pressure 181/82 05/31/2018 3:37 PM CDT Pulse 76 05/31/2018 3:37 PM CDT Temperature 36.1 C (96.9 F) 05/10/2018 7:47 AM CDT Respiratory Rate 16 05/10/2018 7:47 AM CDT Oxygen Saturation 93% 05/10/2018 7:47 AM CDT Inhaled Oxygen Concentration - - Weight 101 kg (223 lb) 05/10/2018 7:47 AM CDT Height 175.3 cm (5' 9") 05/10/2018 7:47 AM CDT Body Mass Index 32.93 05/10/2018 7:47 AM CDT Plan of Treatment Health Maintenance Due Date Last Done Comments COLON CANCER SCREENING 2009 SHINGRIX VACCINE (#1) 2009 INFLUENZA VACCINE 04/25/2018 Implants Implanted Type Area Cytogenetic Technologist Device Expiration Model / Identifier Date Serial / Lot Manoj Stylet Stylet / N/A: N/A [employer]ICS 07/24/2021 [id number] / Implanted: Qty: 1 on 11/07/2017 by Julio Roman MD Divitel, [id number] / [id number] Catheter 19.5cm Peritoneal Dialysis Extended - [id number] Surgical N/A: N/A 08/24/2022 [id number] / Implanted: 11/07/2017 (Quantity not on file) Implants; / Expanders; [id number] Extenders; Surgical Wires Procedures Procedure Name Priority Date/Time Associated Comments Diagnosis US RENAL Routine 05/31/2018 4:40 ESRD (end stage Results for this PM CDT renal disease) procedure are in the results section. XR CHEST 2 VW Routine 05/31/2018 4:22 ESRD (end stage Results for this PM CDT renal disease) procedure are in the results section. ECHOCARDIOGRAM 2D Routine 05/31/2018 3:46 ESRD (end stage Results for this COMPLETE W MMODE PM CDT renal disease) procedure are in SPECTRAL COLOR DOPPLER the results (93361) section. ECG 12-LEAD Routine 05/31/2018 1:42 ESRD (end stage Results for this PM CDT renal disease) procedure are in the results section. ZZESTIMATED GFR Routine 05/10/2018 10:45 Results for this AM CDT procedure are in the results section. PROSTATE SPECIFIC Routine 05/10/2018 10:45 ESRD (end stage Results for this ANTIGEN AM CDT renal disease) procedure are in the results section. SERUM ELECTROPHORESIS Routine 05/10/2018 10:45 ESRD (end stage Results for this AM CDT renal disease) procedure are in the results section. C-PEPTIDE Routine 05/10/2018 10:45 ESRD (end stage Results for this AM CDT renal disease) procedure are in the results section. TB T-SPOT Routine 05/10/2018 10:45 ESRD (end stage Results for this AM CDT renal disease) procedure are in the results section. NICOTINE AND Routine 05/10/2018 10:45 ESRD (end stage Results for this METABOLITES, SERUM AM CDT renal disease) procedure are in the results section. DRUG ALVAREZ 9, SER/MOOKIE, Routine 05/10/2018 10:45 ESRD (end stage Results for this SCRN W/RFLX TO CONF AM CDT renal disease) procedure are in the results section. ABORH - TRANSPLANT Routine 05/10/2018 10:45 ESRD (end stage Results for this AM CDT renal disease) procedure are in the results section. PARTIAL THROMBOPLASTIN Routine 05/10/2018 10:45 ESRD (end stage Results for this TIME (PTT) AM CDT renal disease) procedure are in the results section. PROTHROMBIN TIME WITH Routine 05/10/2018 10:45 ESRD (end stage Results for this INR AM CDT renal disease) procedure are in the results section. HC COMPLETE BLD COUNT Routine 05/10/2018 10:45 ESRD (end stage Results for this W/AUTO DIFF AM CDT renal disease) procedure are in the results section. SYPHILIS TREPONEMAL IGG Routine 05/10/2018 10:45 ESRD (end stage Results for this AM CDT renal disease) procedure are in the results section. HEPATITIS C ANTIBODY Routine 05/10/2018 10:45 ESRD (end stage Results for this AM CDT renal disease) procedure are in the results section. HEPATITIS B SURFACE AB, Routine 05/10/2018 10:45 ESRD (end stage Results for this QUANTITATIVE AM CDT renal disease) procedure are in the results section. HEPATITIS B SURFACE Routine 05/10/2018 10:45 ESRD (end stage Results for this ANTIGEN AM CDT renal disease) procedure are in the results section. HEPATITIS B SURFACE Routine 05/10/2018 10:45 ESRD (end stage Results for this ANTIBODY AM CDT renal disease) procedure are in the results section. HEPATITIS B CORE Routine 05/10/2018 10:45 ESRD (end stage Results for this ANTIBODY TOTAL AM CDT renal disease) procedure are in the results section. HEPATITIS A ANTIBODY Routine 05/10/2018 10:45 ESRD (end stage Results for this TOTAL AM CDT renal disease) procedure are in the results section. HIV AG/AB COMBINATION Routine 05/10/2018 10:45 ESRD (end stage Results for this AM CDT renal disease) procedure are in the results section. URINALYSIS SCREEN AND Routine 05/10/2018 10:45 ESRD (end stage Results for this MICROSCOPY, WITH REFLEX AM CDT renal disease) procedure are in TO CULTURE the results section. COMPREHENSIVE METABOLIC Routine 05/10/2018 10:45 ESRD (end stage Results for this PANEL AM CDT renal disease) procedure are in the results section. GRAM STAIN Routine 05/10/2018 10:45 Results for this AM CDT procedure are in the results section. URINE CULTURE Routine 05/10/2018 10:45 Results for this AM CDT procedure are in the results section. POC GLUCOSE Routine 02/05/2018 11:55 Results for this AM CDT procedure are in the results section. POC GLUCOSE Routine 02/05/2018 7:19 Results for this AM CDT procedure are in the results section. POC GLUCOSE Routine 02/04/2018 9:13 Results for this PM CDT procedure are in the results section. POC GLUCOSE Routine 02/04/2018 5:13 Results for this PM CDT procedure are in the results section. POC GLUCOSE Routine 02/04/2018 12:13 Results for this PM CDT procedure are in the results section. POC GLUCOSE Routine 02/04/2018 7:47 Results for this AM CDT procedure are in the results section. MANUAL DIFFERENTIAL Routine 02/04/2018 6:00 Results for this AM CDT procedure are in the results section. ZZESTIMATED GFR Routine 02/04/2018 6:00 Results for this AM CDT procedure are in the results section. CBC WITH PLATELET AND Routine 02/04/2018 6:00 Results for this DIFFERENTIAL AM CDT procedure are in the results section. BASIC METABOLIC PANEL Routine 02/04/2018 6:00 Results for this AM CDT procedure are in the results section. POC GLUCOSE Routine 02/04/2018 5:58 Results for this AM CDT procedure are in the results section. POC GLUCOSE Routine 02/03/2018 9:00 Results for this PM CDT procedure are in the results section. POC GLUCOSE Routine 02/03/2018 8:59 Results for this PM CDT procedure are in the results section. POC GLUCOSE Routine 02/03/2018 5:01 Results for this PM CDT procedure are in the results section. POC GLUCOSE Routine 02/03/2018 1:35 Results for this PM CDT procedure are in the results section. POC GLUCOSE Routine 02/03/2018 11:51 Results for this AM CDT procedure are in the results section. POC GLUCOSE Routine 02/03/2018 11:50 Results for this AM CDT procedure are in the results section. POC GLUCOSE Routine 02/03/2018 8:13 Results for this AM CDT procedure are in the results section. ZZESTIMATED GFR Routine 02/03/2018 6:00 Results for this AM CDT procedure are in the results section. COMPREHENSIVE METABOLIC Routine 02/03/2018 6:00 Results for this PANEL AM CDT procedure are in the results section. CBC WITH PLATELET AND Routine 02/03/2018 6:00 Results for this DIFFERENTIAL AM CDT procedure are in the results section. PHOSPHORUS LEVEL Routine 02/03/2018 6:00 Results for this AM CDT procedure are in the results section. POC GLUCOSE Routine 02/03/2018 5:29 Results for this AM CDT procedure are in the results section. POC GLUCOSE Routine 02/02/2018 9:13 Results for this PM CDT procedure are in the results section. POC GLUCOSE Routine 02/02/2018 4:18 Results for this PM CDT procedure are in the results section. RAPID HIV 1 & 2 Routine 02/02/2018 12:45 Results for this PM CDT procedure are in the results section. POC GLUCOSE Routine 02/02/2018 12:17 Results for this PM CDT procedure are in the results section. IR LUMBAR PUNCTURE Routine 02/02/2018 11:41 Results for this AM CDT procedure are in the results section. VARICELLA ZOSTER BY PCR Routine 02/02/2018 11:35 Results for this AM CDT procedure are in the results section. HERPES SIMPLEX VIRUS BY Routine 02/02/2018 11:35 Results for this PCR AM CDT procedure are in the results section. ENTEROVIRUS BY PCR Routine 02/02/2018 11:35 Results for this AM CDT procedure are in the results section. GLUCOSE LEVEL, CSF Routine 02/02/2018 11:35 Results for this AM CDT procedure are in the results section. PROTEIN, CSF Routine 02/02/2018 11:35 Results for this AM CDT procedure are in the results section. CSF CELL COUNT WITH Routine 02/02/2018 11:35 Results for this DIFFERENTIAL AM CDT procedure are in the results section. GRAM STAIN Routine 02/02/2018 11:35 Results for this AM CDT procedure are in the results section. CRYPTOCOCCAL ANTIGEN Routine 02/02/2018 11:35 Results for this SCREEN AM CDT procedure are in the results section. AFB CULTURE Routine 02/02/2018 11:35 Results for this AM CDT procedure are in the results section. FUNGUS CULTURE Routine 02/02/2018 11:35 Results for this AM CDT procedure are in the results section. CSF CULTURE Routine 02/02/2018 11:35 Results for this AM CDT procedure are in the results section. POC GLUCOSE Routine 02/02/2018 7:26 Results for this AM CDT procedure are in the results section. MANUAL DIFFERENTIAL Routine 02/02/2018 5:40 Results for this AM CDT procedure are in the results section. ZZESTIMATED GFR Routine 02/02/2018 5:40 Results for this AM CDT procedure are in the results section. COMPREHENSIVE METABOLIC Routine 02/02/2018 5:40 Results for this PANEL AM CDT procedure are in the results section. CBC WITH PLATELET AND Routine 02/02/2018 5:40 Results for this DIFFERENTIAL AM CDT procedure are in the results section. HEMOGLOBIN A1C Routine 02/02/2018 5:40 Results for this AM CDT procedure are in the results section. LIPID PANEL Routine 02/02/2018 5:40 Results for this AM CDT procedure are in the results section. PHOSPHORUS LEVEL Routine 02/02/2018 5:40 Results for this AM CDT procedure are in the results section. POC GLUCOSE Routine 02/02/2018 5:22 Results for this AM CDT procedure are in the results section. POC GLUCOSE Routine 02/02/2018 1:28 Results for this AM CDT procedure are in the results section. POC GLUCOSE Routine 02/01/2018 10:26 Results for this PM CDT procedure are in the results section. POC GLUCOSE Routine 02/01/2018 9:10 Results for this PM CDT procedure are in the results section. PARTIAL THROMBOPLASTIN Routine 02/01/2018 7:48 Results for this TIME (PTT) PM CDT procedure are in the results section. PROTHROMBIN TIME WITH Routine 02/01/2018 7:48 Results for this INR PM CDT procedure are in the results section. HEPATITIS B SURFACE AB, Routine 02/01/2018 7:48 Results for this QUANTITATIVE PM CDT procedure are in the results section. VARICELLA ZOSTER BY PCR Routine 02/01/2018 6:47 Results for this PM CDT procedure are in the results section. POC GLUCOSE Routine 02/01/2018 4:28 Results for this PM CDT procedure are in the results section. MRA NECK WO CONTRAST STAT 02/01/2018 2:52 Results for this PM CDT procedure are in the results section. MRA HEAD WO CONTRAST STAT 02/01/2018 2:52 Results for this PM CDT procedure are in the results section. MRI STROKE BRAIN WO STAT 02/01/2018 2:21 Results for this CONTRAST PM CDT procedure are in the results section. POC GLUCOSE Routine 02/01/2018 11:40 Results for this AM CDT procedure are in the results section. EEG AWAKE/DROWSY LESS Routine 02/01/2018 10:12 Results for this THAN 41 MIN AM CDT procedure are in the results section. POC GLUCOSE Routine 02/01/2018 7:47 Results for this AM CDT procedure are in the results section. PHOSPHORUS LEVEL Routine 02/01/2018 6:25 Results for this AM CDT procedure are in the results section. ZZESTIMATED GFR Routine 02/01/2018 6:25 Results for this AM CDT procedure are in the results section. AMMONIA LEVEL Routine 02/01/2018 6:25 Results for this AM CDT procedure are in the results section. COMPREHENSIVE METABOLIC Routine 02/01/2018 6:25 Results for this PANEL AM CDT procedure are in the results section. CBC WITH PLATELET AND Routine 02/01/2018 6:25 Results for this DIFFERENTIAL AM CDT procedure are in the results section. HEPATITIS B SURFACE Routine 02/01/2018 6:25 Results for this ANTIBODY AM CDT procedure are in the results section. HEPATITIS B SURFACE Routine 02/01/2018 6:25 Results for this ANTIGEN AM CDT procedure are in the results section. GASTROINTESTINAL PANEL Routine 01/31/2018 9:30 Results for this PM CDT procedure are in the results section. POC GLUCOSE Routine 01/31/2018 9:02 Results for this PM CDT procedure are in the results section. US DUPLEX VENOUS LOWER Routine 01/31/2018 8:41 Results for this EXTREMITY BILATERAL PM CDT procedure are in the results section. LACTIC ACID LEVEL, Timed 01/31/2018 8:40 Results for this SEPSIS - NOW AND REPEAT PM CDT procedure are in 2X EVERY 3 HOURS the results section. THYROID STIMULATING Routine 01/31/2018 5:58 Results for this HORMONE PM CDT procedure are in the results section. URIC ACID LEVEL Routine 01/31/2018 5:58 Results for this PM CDT procedure are in the results section. LACTIC ACID LEVEL, Timed 01/31/2018 5:58 Results for this SEPSIS - NOW AND REPEAT PM CDT procedure are in 2X EVERY 3 HOURS the results section. XR CHEST 1 VW PORTABLE STAT 01/31/2018 2:43 Results for this PM CDT procedure are in the results section. BLOOD CULTURE, AEROBIC & Routine 01/31/2018 2:39 Results for this ANAEROBIC PM CDT procedure are in the results section. STREP SCREEN CULTURE Routine 01/31/2018 2:32 Results for this PM CDT procedure are in the results section. GROUP A STREP, RAPID Routine 01/31/2018 2:32 Results for this ANTIGEN PM CDT procedure are in the results section. RESPIRATORY PATHOGEN Routine 01/31/2018 2:30 Results for this PANEL PM CDT procedure are in the results section. INFLUENZA ANTIGEN Routine 01/31/2018 2:30 Results for this PM CDT procedure are in the results section. CT HEAD WO CONTRAST STAT 01/31/2018 2:27 Results for this PM CDT procedure are in the results section. ZZESTIMATED GFR STAT 01/31/2018 2:00 Results for this PM CDT procedure are in the results section. COMPREHENSIVE METABOLIC STAT 01/31/2018 2:00 Results for this PANEL PM CDT procedure are in the results section. HC COMPLETE BLD COUNT STAT 01/31/2018 2:00 Results for this W/AUTO DIFF PM CDT procedure are in the results section. LACTIC ACID LEVEL, STAT 01/31/2018 2:00 Results for this SEPSIS - NOW AND REPEAT PM CDT procedure are in 2X EVERY 3 HOURS the results section. BLOOD CULTURE, AEROBIC & Routine 01/31/2018 1:50 Results for this ANAEROBIC PM CDT procedure are in the results section. POC GLUCOSE Routine 11/07/2017 9:20 Results for this AM SPORTS BOOK SERVER procedure are in the results section. W[place] AN ELECTIVE Routine 11/07/2017 8:17 ENDOTRACHEAL AIRWAY AM SPORTS BOOK SERVER Procedure Note - Clovis Martel CRNA - 11/07/2017 8:17 AM SPORTS BOOK SERVER Airway Date/Time: 11/07/2017 8:05 AM Performed by: CLOVIS MARTEL Authorized by: CIERRA SEO Location: [place] Urgency: Elective Difficult Airway: No Anesthesiologist: CIERRA SEO Resident/HEATING TECHNICIAN/AA: CLOVIS MARTEL Performed by: resident/HEATING TECHNICIAN/AA Preoxygenated with 100% O2: Yes C-spine Precautions [...] at Approach: 1 Atraumatic. Dentition remains unchanged POC GLUCOSE Routine 11/07/2017 7:48 AM Results for this SPORTS BOOK SERVER procedure are in the results section. POC PANEL 4 Routine 11/07/2017 7:44 AM Results for this SPORTS BOOK SERVER procedure are in the results section. ZZESTIMATED GFR STAT 11/07/2017 7:40 AM Results for this SPORTS BOOK SERVER procedure are in the results section. BASIC METABOLIC PANEL STAT 11/07/2017 7:40 AM Results for this SPORTS BOOK SERVER procedure are in the results section. ECG 12-LEAD Routine 11/02/2017 4:21 PM Preop testing Results for this SPORTS BOOK SERVER procedure are in the results section. HC COMPLETE BLD COUNT Routine 11/02/2017 4:09 PM Preop testing Results for this W/AUTO DIFF SPORTS BOOK SERVER procedure are in the results section. after 07/14/2017 Results US Renal (05/31/2018 4:40 PM) Narrative Performed At EXAMINATION:US RENAL HM [facility] CLINICAL HISTORY:N18.6 End stage renal disease, Renal Transplant Evaluation COMPARISON:None. FINDINGS: The kidneys are normal in size although of increased echogenicity. There is no evidence of renal mass, calculi, or hydronephrosis. The right kidney measures 10.6 x 6.1 x 5.2 cm. The left kidney measures 11.1 x 5.5 x 6.5 cm. Incidental note is made of a 1.2 cm simple appearing left renal cyst. The urinary bladder is unremarkable. IMPRESSION: Findings consistent with medical renal disease. [id number] Procedure Note Interface, Radiology Results Incoming - 05/31/2018 4:55 PM CDT EXAMINATION: US RENAL CLINICAL HISTORY: N18.6 End stage renal disease, Renal Transplant Evaluation COMPARISON: None. FINDINGS: The kidneys are normal in size although of increased echogenicity. There is no evidence of renal mass, calculi, or hydronephrosis. The right kidney measures 10.6 x 6.1 x 5.2 cm. The left kidney measures 11.1 x 5.5 x 6.5 cm. Incidental note is made of a 1.2 cm simple appearing left renal cyst. The urinary bladder is unremarkable. IMPRESSION: Findings consistent with medical renal disease. [facility]-[id number] Performing Organization Address City/State/Zipcode Phone Number [facility] [address] [place] [address] XR Chest 2 Vw (05/31/2018 4:22 PM) Narrative Performed At Examination: Chest 2 views [facility] CLINICAL HISTORY: N18.6 End stage renal disease, Renal Transplant Evaluation COMPARISON: 01/31/2018 FINDINGS: The heart is normal in size. Mediastinum is within normal limits. There are degenerative changes in the dorsal spine. IMPRESSION: Mild chronic peripheral pleural thickening. Pulmonary vasculature is prominent due to pulmonary vascular congestion. Small bilateral pleural effusions. Fluid is also present in the minor fissure. No focal consolidation. [id number] Procedure Note Interface, Radiology Results Incoming - 05/31/2018 4:35 PM CDT Examination: Chest 2 views CLINICAL HISTORY: N18.6 End stage renal disease, Renal Transplant Evaluation COMPARISON: 01/31/2018 FINDINGS: The heart is normal in size. Mediastinum is within normal limits. There are degenerative changes in the dorsal spine. IMPRESSION: Mild chronic peripheral pleural thickening. Pulmonary vasculature is prominent due to pulmonary vascular congestion. Small bilateral pleural effusions. Fluid is also present in the minor fissure. No focal consolidation. [id number] Performing Organization Address City/State/Zipcode Phone Number [facility] [address] [facility] [place] [address] Echocardiogram complete w contrast and 3D if needed (05/31/2018 3:46 PM) Narrative Performed At [facility] Echocardiography Report [address] [facility], [facility] [address], [place] [address] Pat.Name:MARNIE LYLES WPat.ID:[id number] .Date: 05/31/2018Refer.MD:ALICIA CORTEZ MD Exam Time: 2:14:00 PMStudy Type:Routine Echo Height:69inWeight: 223lb BSA: 2.17 m2 DOBAge:1960,57Y Sex: MALEBP:181/82 HR:76 bpm Sonogrphr: Marielos Middleton RDCS, Jenn Taylor Pat. Stat.:OutpatientStudy Status:Final Echo Event ID:[id number] Order ID:[id number] Reason for Study:Renal Transplant Evaluation Dx,ESRD (end stage renal disease) [N18.6 (ICD-10-CM)] History / Clinical:Diabetes, Hypertension Procedures:2D Echo, Colorflow Doppler, Intravenous Definity Contrast Race:C SUMMARY: LV is mildly enlarged, hypertrophied, with normal function. Mildly dilated RV with mildly depressed function. No hemodynamically significant valvular abnormalities. Elevated filling pressures. PASP is estimated at 57 mm Hg, assuming RAP 10 mm Hg. FINDINGS: LV: LV size is mildly enlarged. There is moderate eccentric LV hypertrophy.LV EF is normal. Overall wall motion is normal.Septal motion is paradoxical secondary to RV systolicpressure overload. Estimated EF is 55-59%. RV: RV size is mildly enlarged. RV systolic function is mildly depressed. LA: LA volume is mildly enlarged. RA: RA volume is enlarged. AO: Aortic root diameter is normal. VANI: Small posterior pericardial effusion. AV: No structural AV abnormalities noted. MV: Mild thickening of mitral leaflets. Mild mitral annular calcification.A trace of mitral regurgitation. PV: Pulmonic valve not well seen. TV: No structural TV abnormalities noted. A trace of tricuspid regurgitation Werner: LV relaxation is impaired. LV filling pressure is normal. Other:Estimated PA systolic pressure is 58 mmHg, assuming a mean RAPof 10 mmHg. MEASUREMENTS: 2D Parasternal Long [place] LVOT 1.8 cmLA Ds4.6 cm LVIDd6 cmIndex2.8 cm/m Ao An1.8 cm LVIDs4.2 cmAo Rtd 3.4 cm Index1.6 cm/m LV%fs 29.4 % LV Llvk953.3 g(122-174) IVSd 1.1 cmLVM Exodm205.4 g/m2 LVPWd1.4 cmRWT0.5 Right Ventricle RVIDd4.3 cm (2.6-4.3) LA Sng Plane LA Area 25.7 cm2(8.8-23.4) LA Vol82.6 ml Index38.1 ml/m LA LngAx 6.6 cm RA Sng Plane RA Area 22 cm2(8.3-19.5) RA Vol68.4 ml Index31.5 ml/m RA LngAx 5.9 cm Ascending Aorta Asce Dim 2.8 cm DOPPLER LVOT Stroke Vol LVOT 1.8 cmLVOT CO5.9 l/min LVOT TVI30.6 cmLVOT CI2.7 l/m/m2 LVOT Tm361 kasnOI00 bpm LVOT SV 78 ml MV E/A Ratio MV pkE 121.1 cm/s (60-130) MV E/A 1 MV pkA 121.1 cm/s Left Ventricle LaSep Em 8.5 cm/sLaLat Em 9.4 cm/s LV Diastology E/Em Ratio LaLat E/Em12.6 LaSep E/Em16.3 TV Pressure Gradient TV PkVel 346.1 cm/sTV PG 47.9 mmHg Signed 06/01/2018 01:20 PM Edward Liao M.D. Procedure Note Interface, Radiology Results In - 06/01/2018 1:20 PM CDT Echocardiography Report [address] [facility], [place] [address], [place] [address] Pat.Name: MARNIE LYLES Pat.ID: [id number] .Date: 05/31/2018 Refer.MD: ALICIA CORTEZ MD Exam Time: 2:14:00 PM Study Type:Routine Echo Height: 69in Weight: 223lb BSA: 2.17 m2 Age: 8 1960,57Y Sex: MALE BP: 181/82 HR: 76 bpm Sonogrphr: Marielos Middleton RDCS, Jenn Taylor Pat. Stat.:Outpatient Study Status:Final Echo Event ID:[id number] Order ID: [id number] Reason for Study:Renal Transplant Evaluation Dx,ESRD (end stage renal disease) [N18.6 (ICD-10-CM)] History / Clinical:Diabetes, Hypertension Procedures:2D Echo, Colorflow Doppler, Intravenous Definity Contrast Race: C SUMMARY: LV is mildly enlarged, hypertrophied, with normal function. Mildly dilated RV with mildly depressed function. No hemodynamically significant valvular abnormalities. Elevated filling pressures. PASP is estimated at 57 mm Hg, assuming RAP 10 mm Hg. FINDINGS: LV: LV size is mildly enlarged. There is moderate eccentric LV hypertrophy. LV EF is normal. Overall wall motion is normal. Septal motion is paradoxical secondary to RV systolic pressure overload. Estimated EF is 55-59%. RV: RV size is mildly enlarged. RV systolic function is mildly depressed. LA: LA volume is mildly enlarged. RA: RA volume is enlarged. AO: Aortic root diameter is normal. VANI: Small posterior pericardial effusion. AV: No structural AV abnormalities noted. MV: Mild thickening of mitral leaflets. Mild mitral annular calcification. A trace of mitral regurgitation. PV: Pulmonic valve not well seen. TV: No structural TV abnormalities noted. A trace of tricuspid regurgitation Werner: LV relaxation is impaired. LV filling pressure is normal. Other: Estimated PA systolic pressure is 58 mmHg, assuming a mean RAP of 10 mmHg. MEASUREMENTS: 2D Parasternal [place] LVOT 1.8 cm LA Ds 4.6 cm LVIDd 6 cm Index 2.8 cm/m Ao An 1.8 cm LVIDs 4.2 cm Ao Rtd 3.4 cm Index 1.6 cm/m LV%fs 29.4 % LV Mass 326.3 g (122-174) IVSd 1.1 cm LVM Index 150.4 g/m2 LVPWd 1.4 cm RWT 0.5 Right Ventricle RVIDd 4.3 cm (2.6-4.3) LA Sng Plane LA Area 25.7 cm2 (8.8-23.4) LA Vol 82.6 ml Index 38.1 ml/m LA LngAx 6.6 cm RA Sng Plane RA Area 22 cm2 (8.3-19.5) RA Vol 68.4 ml Index 31.5 ml/m RA LngAx 5.9 cm Ascending Aorta Asce Dim 2.8 cm DOPPLER LVOT Stroke Vol LVOT 1.8 cm LVOT CO 5.9 l/min LVOT TVI 30.6 cm LVOT CI 2.7 l/m/m2 LVOT Tm 361 msec HR 76 bpm LVOT SV 78 ml MV E/A Ratio MV pkE 121.1 cm/s (60-130) MV E/A 1 MV pkA 121.1 cm/s Left Ventricle LaSep Em 8.5 cm/s LaLat Em 9.4 cm/s LV Diastology E/Em Ratio LaLat E/Em 12.6 LaSep E/Em 16.3 TV Pressure Gradient TV PkVel 346.1 cm/s TV PG 47.9 mmHg Signed 06/01/2018 01:20 PM Edward Liao M.D. Performing Organization Address [facility] Phone Number [facility] [address] [place] [address] EKG 12-LEAD (05/31/2018 1:42 PM)Only the most recent of2 resultswithin the time period is included. Ventricular rate 79 HM MUSE Atrial rate [address] [facility] MUSE W[place] interval [address] [facility] MUSE QRSD interval [address] [facility] MUSE QT interval [address] [facility] MUSE QTC interval [address] [facility] MUSE P axis [address] [facility] MUSE QRS axis 1 29 HM MUSE T wave axis [address] [facility] MUSE EKG impression Normal sinus rhythm-Possible Left atrial enlargement-Anterior infarct (cited on or before 02-NOV-2017)-Abnormal ECG-In automated comparison with ECG of 02-NOV-2017 16:21,-Nonspecific T wave abnormality [facility] MUSE now evident in Lateral leads- Performing Organization Address [facility] Phone Number [facility] MUSE [address] [place] [address] Syphilis treponemal IgG (05/10/2018 10:45 AM) Syphilis treponemal IgG Non-reactiveComment: Non-reactive [facility] DEPARTMENT OF Non-reactive: No PATHOLOGY AND GENOMIC serological evidence of MEDICINE Syphilis infection Specimen Serum Performing Organization Address [facility] Phone Number [facility] DEPARTMENT OF PATHOLOGY AND [address] [place] [address] GENOMIC MEDICINE Urinalysis screen and microscopy, with reflex to culture (05/10/2018 10:45 AM) Specimen site Clean catch [facility] DEPARTMENT OF PATHOLOGY AND GENOMIC MEDICINE Color, UA Straw [facility] DEPARTMENT OF PATHOLOGY AND GENOMIC MEDICINE Appearance, UA Clear [facility] DEPARTMENT OF PATHOLOGY AND GENOMIC MEDICINE Specific gravity, UA 1.011 1.001 - 1.[address] [facility] DEPARTMENT OF PATHOLOGY AND GENOMIC MEDICINE pH, UA 7.0 5.0 - 8.[address] [facility] DEPARTMENT OF PATHOLOGY AND GENOMIC MEDICINE Protein, UA 3+ (A) Negative [facility] DEPARTMENT OF PATHOLOGY AND GENOMIC MEDICINE Glucose, UA 2+ (A) Negative [facility] DEPARTMENT OF PATHOLOGY AND GENOMIC MEDICINE Ketones, UA Negative Negative [facility] DEPARTMENT OF PATHOLOGY AND GENOMIC MEDICINE Bilirubin, UA Negative Negative [facility] DEPARTMENT OF PATHOLOGY AND GENOMIC MEDICINE Blood, UA Moderate (A) Negative [facility] DEPARTMENT OF PATHOLOGY AND GENOMIC MEDICINE Nitrite, UA Negative Negative [facility] DEPARTMENT OF PATHOLOGY AND GENOMIC MEDICINE Urobilinogen, UA <2.0 <2.[address] [facility] DEPARTMENT OF PATHOLOGY AND GENOMIC MEDICINE Leukocyte esterase, UA Negative Negative [facility] DEPARTMENT OF PATHOLOGY AND GENOMIC MEDICINE Round epithelial cells, UA <1 0 - 1 /HPF [facility] DEPARTMENT OF PATHOLOGY AND GENOMIC MEDICINE WBC, UA 11 (H) 0 - 1 /HPF [facility] DEPARTMENT OF PATHOLOGY AND GENOMIC MEDICINE RBC, UA 85 (H) 0 - 5 /HPF [facility] DEPARTMENT OF PATHOLOGY AND GENOMIC MEDICINE Bacteria, UA Few None seen [facility] DEPARTMENT OF PATHOLOGY AND GENOMIC MEDICINE Yeast, UA None seen [facility] DEPARTMENT OF PATHOLOGY AND GENOMIC MEDICINE Yeast with pseudohyphae, UA None seen [facility] DEPARTMENT OF PATHOLOGY AND GENOMIC MEDICINE Specimen Urine Performing Organization Address City/[facility] Phone Number [facility] DEPARTMENT OF PATHOLOGY AND [address] [place] [address] HIV Ag/Ab combination (05/10/2018 10:45 AM) HIV Ag/Ab combination Non-reactive Non-reactive [facility] DEPARTMENT OF PATHOLOGY AND GENOMIC MEDICINE Specimen Blood Performing Organization Address City/[facility]/Zipcode Phone Number [facility] DEPARTMENT OF PATHOLOGY AND [address] [place] [id number] [facility] TB T-SPOT (05/10/2018 10:45 AM) TB T-SPOT SEE NOTE [facility] DEPARTMENT OF PATHOLOGY Comment: AND GENOMIC MEDICINE T-SPOT TUBERCULOSIS Nil Control: 0 Panel A: 0 Panel B: 1 Positive Control: TMTC Result:NEGATIVE NOTE: TMTC INDICATES TOO MANY SPOTS TO COUNT SAT INDICATES THE WELL WAS SATURATED RESULTS INTERPRETATION: RESULTS ARE NEGATIVE WHEN (PANEL A-NIL) OR (PANEL B-NIL) <=4 SPOTS, INCLUDING VALUES LESS THAN ZERO. RESULTS ARE POSITIVE WHEN (PANEL A-NIL) OR (PANEL B-NIL) >=8 SPOTS RESULTS ARE BORDERELINE WHEN EITHER (PANEL A-NIL) OR (PANEL B-NIL)=5,6,0R 7. THE TEST IS INVALID WHEN EITHER OF THE FOLLOWING CONDITIONS IS MET: 1.) THE NIL CONTROL HAS >10 SPOTS 2.) THE MITOGEN (POSITIVE CONTROL) HAS <20 SPOTS AND BOTH (PANEL A-NIL) AND (PANEL B-NIL) <=4 SPOTS. M. TUBERCULOSIS INFECTION UNLIKELY, BUT CANNOT BE EXCLUDED ESPECIALLY WHEN: 1. ANY ILLNESS IS CONSISTENT WITH TB DISEASE. 2. LIKELIHOOD OF PROGRESSION TO DISEASE (e.g. DUE TO IMMUNOSUPPRESSION) IS INCREASED. LIMITATIONS: DIAGNOSING OR EXCLUDING TUBERCULOSIS DISEASE, AND ASSESSING THE PROBABILITY OF LTBI, REQUIRES A COMBINATION OF EPIDEMIOLOGICAL, HISTORICAL, MEDICAL, AND DIAGNOSTIC FINDINGS THAT SHOULD BE TAKEN INTO ACCOUNT WHEN INTERPRETING T-SPOT.TB REFER TO THE MOST RECENT CDC GUIDANCE (HTTP: //WWW.CDC.GOV/NCHSTP/TB) FOR DETAILED RECOMMENDATIONS ABOUT DIAGNOSING TB INFECTION (INCLUDING DISEASE) AND SELECTING PERSONS FOR TESTING. 1.) A FALSE NEGATIVE RESULT CAN BE CAUSED BY INCORRECT BLOOD SAMPLE COLLECTION OR IMPROPER HANDLING OF THE SPECIMEN, AFFECTING LYMPHOCYTE FUNCTION 2.) THE PERFORMANCE OF T-SPOT.TB HAS NOT BEEN ADEQUATELY EVALUATED WITH SPECIMENS FROM INDIVIDUALS YOUNGER THANAGE 17 YEARS, IN WOMEN, AND IN PATIENTS WITH HEMOPHILIA. 3-) A FALSE POSITIVE RESULT WAS OBTAINED FOR T-SPOT.TB WHEN TESTED IN SUBJECTS WITH M. XENOPI, M. KANSASII, AND M. GORDONAE.WHILE ESAT-6 AND CFP-10 ANTIGENS ARE ABSENT FROM BCG STRAINS OF M. BOVIS AND FROM MOST ENVIRONMENTAL MYCOBACTERIA, IT IS POSSIBLE THAT A POSITIVE T-SPOT.TB RESULT MAY BE DUE TO INFECTION WITH M. KANSASII, M. SZULGAI, M. GORDONAE, OR M. MARINUM. ALTERNATIVE TESTS WOULD BE REQUIRED IF THESE INFECTIONS ARE SUSPECTED. 4.) A NEGATIVE TEST RESULT DOES NOT EXCLUDE THE POSSIBILITY OF EXPOSURE TO, OR INFECTION WITH, M. TUBERCULOSIS. PATIENTS WITH RECENT EXPOSURE TO TB INFECTED INDIVIDUALS EXHIBITING A NEGATIVE T-SPOT.TB RESULT SHOULD BE CONSIDERED FOR RETESTING WITHIN 6 WEEKS OR IF OTHER RELEVANT CLINICAL SYMPTOMS INDICATE POSSIBLE INFECTION. 5.) A POSITIVE TEST RESULT DOES NOT RULE IN ACTIVE TB DISEASE; OTHER TESTS SHOULD BE PERFORMED TO CONFIRM THE DIAGNOSIS OF ACTIVE TB DISEASE SUCH SPUTUM SMEAR AND CULTURE, PCR AND CHEST RADIOGRAPHY. 6.) T-SPOT.TB TEST HAS NOT BEEN EVALUATED IN SUBJECTS WHO HAVE RECEIVED >1 MONTH OF ANTI-TB THERAPY. 7. ) REFRIGERATED AND FROZEN SAMPLES ARE NOT RECOMMENDED FOR USE WITH T=SPOT.TB TEST. Performed by: [facility] Molecular Tuberculosis Laboratory [facility] ([id number]) [place], [place] [address] Specimen Blood Performing Organization Address [facility] Phone Number [facility] DEPARTMENT OF PATHOLOGY AND [address] Nicotine and metabolites, serum (05/10/2018 10:45 AM) Nicotine <2.0 0.0 - 2.0 ng/mL [facility] DEPARTMENT OF PATHOLOGY AND GENOMIC MEDICINE Cotinine 2.7 (H) 0.0 - 2.0 ng/mL [facility] DEPARTMENT OF PATHOLOGY AND GENOMIC MEDICINE 8-TM-dgovspee <5.0 0.0 - 5.0 ng/mL [facility] DEPARTMENT OF Comment: PATHOLOGY AND GENOMIC This test was developed and its performance characteristics determined by MEDICINE the Department of Pathology and Genomic Medicine, [facility]. Serum nicotine and its metabolites cotinine and 7-[id number]-cqjgtvbf are tested by HPLC tandem mass spectrometry. It has not been cleared or approved by FDA. The laboratory is regulated under CLIA as qualified to perform high-complexity testing. This test is used for clinical purposes. It should not be regarded as investigational or for research. Specimen Blood Performing Organization Address [facility] Phone Number [facility] DEPARTMENT OF PATHOLOGY AND [address] [place] [address] Hepatitis B surface Ab, quantitative (05/10/2018 10:45 AM)Only the most recent of2 resultswithin the time period is included. Hepatitis B surface Ab <3.10 IU/L [facility] Comment: The anti-HBs is less than 10 IU/L and is therefore negative. There is no evidence of recovery from hepatitis B infection or evidence of antibody response to HBV vaccination. An anti-HBs result greater than or equal to 10 IU/L implies immunity. For post-vaccination antibody testing guidelines for the general public refer to MMWR September 16, 2005/Vol. 54(No. 16);10-17, and for healthcare workers refer to MMWR September 13, 2013/Vol. 62(No. 10);-. Reference Interval: anti-HBs 9.99 IU/L or less ....... Negative 10.00 IU/L or greater .... Positive Results greater than 1,000.00 IU/L are reported as greater than 1,000.00 IU/L. This assay should not be used for blood donor screening, associated re-entry protocols, or for screening Human Cell, Tissues and Cellular and Tissue-Based Products (HCT/P). Performed by [facility], [address] [place], [place] [id number] [email or web address], Cam Sauceda MD - Lab. Director Specimen Serum Performing Organization Address City/[facility]/Zipcode Phone Number [facility] [address] [place] [address] Estimated GFR (05/10/2018 10:45 AM)Only the most recent of7 resultswithin the time period is included. GFR Non Af Amer 5 (A) mL/min/1.[address] [facility] DEPARTMENT OF PATHOLOGY AND GENOMIC MEDICINE GFR Af Amer 6 (A) mL/min/1.[address] [facility] DEPARTMENT OF Comment: PATHOLOGY AND GENOMIC Chronic kidney disease: <60 mL/min/1.73m2 MEDICINE Kidney failure: <15 mL/min/1.73m2 The estimated GFR is calculated from the IDMS-traceable Modification of Diet in Renal Disease Equation. The accuracy of the calculation is poor when the creatinine is normal. Calculated values >90 mL/min/1.73m2 are not reported. This equation has not been validated in children (<18 years), women, the elderly (>70 years), or ethnic groups other than Caucasians and Americans. Specimen Plasma specimen Performing Organization Address City/State/Zipcode Phone Number [facility] DEPARTMENT OF PATHOLOGY AND [address] [place] [address] [facility] Hepatitis C antibody (05/10/2018 10:45 AM) Hepatitis C Ab Non-reactive Non-reactive [facility] DEPARTMENT OF PATHOLOGY AND [facility] MEDICINE Specimen Blood Performing Organization Address City/State/Zipcode Phone Number [facility] DEPARTMENT OF PATHOLOGY AND [address] Hepatitis A antibody total (05/10/2018 10:45 AM) Hepatitis A total Ab Non-reactive Non-reactive [facility] DEPARTMENT OF PATHOLOGY AND [facility] Specimen Blood Performing Organization Address City/State/Zipcode Phone Number [facility] DEPARTMENT OF PATHOLOGY AND [address] [place] [address] [facility] Drug alvarez 9, ser/mookie, scrn w/rflx to conf (05/10/2018 10:45 AM) Amphetamines, s/p, Negative Cutoff 30 ng/mL [facility] screen Methamphetamine, s/p, Negative Cutoff 30 ng/mL [facility] screen Barbiturates, s/p, Negative Cutoff 75 ng/mL [facility] screen Benzodiazepines, s/p, Negative Cutoff 75 ng/mL [facility] screen Cocaine, s/p, screen Negative Cutoff 30 ng/mL [facility] Methadone, s/p, screen Negative Cutoff 40 ng/mL [facility] Opiates, s/p, screen Negative Cutoff 30 ng/mL [facility] Oxycodone, s/p, screen Negative Cutoff 30 ng/mL [facility] Phencyclidine, s/p, Negative Cutoff 15 ng/mL [facility] screen Cannabinoids, s/p, Negative Cutoff 30 ng/mL [facility] screen Drug screen comments, See Note [facility] serum Comment: INTERPRETIVE INFORMATION: Drug Screen 9 Panel, Serum or Plasma - Immunoassay Screen with Reflex to Mass Spectrometry Confirmation/ Quantitation 1. Methodology: Qualitative Immunoassay Screen 2. Drugs/Drug classes reported as "Positive" are automatically reflexed to mass spectrometry confirmation/quantitation testing. An immunoassay unconfirmed positive screen result may be useful for medical purposes but does not meet forensic standards. 3. The absence of expected drug(s) and/or drug metabolite(s) may indicate non-compliance, inappropriate timing of specimen collection relative to drug administration, poor drug absorption, or limitations of testing. The concentration at which the screening test can detect a drug or metabolite varies within a drug class. Specimens for which drugs or drug classes are detected by the screen are automatically reflexed to a second, more specific technology (mass spectrometry). The concentration value must be greater than or equal to the cutoff to be reported as positive. Interpretive questions should be directed to the laboratory. 4. For medical purposes only; not valid for forensic use. Test developed and characteristics determined by [facility]. See Compliance Statement B: [employer] Performed by [facility], [address] [place] [address] [email or web address], Cam Sauceda MD - Lab. Director Specimen Serum Performing Organization Address City/[facility] Phone Number [facility] [address] [place] [address] ABORh - transplant (05/10/2018 10:45 AM) ABO grouping O [facility] DEPARTMENT OF PATHOLOGY AND GENOMIC MEDICINE Rh type POS [facility] DEPARTMENT OF PATHOLOGY AND GENOMIC MEDICINE Specimen Blood Performing Organization Address City/[facility] Phone Number [facility] DEPARTMENT OF PATHOLOGY AND [address] [place] [address] Hepatitis B core antibody total (05/10/2018 10:45 AM) Hepatitis B core total Ab Non-reactive Non-reactive [facility] DEPARTMENT OF PATHOLOGY AND GENOMIC MEDICINE Specimen Blood Performing Organization Address City/[facility] Phone Number [facility] DEPARTMENT OF PATHOLOGY AND [address] [place] [address] C-peptide (05/10/2018 10:45 AM) C-peptide 4.0 1.1 - 4.4 ng/mL [facility] DEPARTMENT OF PATHOLOGY AND GENOMIC MEDICINE Specimen Plasma specimen Performing Organization Address [facility] Phone Number [facility] DEPARTMENT OF PATHOLOGY AND [address] [place] [address] Hepatitis B surface antibody (05/10/2018 10:45 AM)Only the most recent of2 resultswithin the time period is included. Hepatitis B surface Ab Non-reactive Non-reactive [facility] DEPARTMENT OF PATHOLOGY AND GENOMIC MEDICINE Specimen Blood Performing Organization Address City/[facility] Phone Number [facility] DEPARTMENT OF PATHOLOGY AND [address] [place] [address] Hepatitis B surface antigen (05/10/2018 10:45 AM)Only the most recent of2 resultswithin the time period is included. Hepatitis B surface Ag Non-reactive Non-reactive [facility] DEPARTMENT OF PATHOLOGY AND GENOMIC MEDICINE Specimen Blood Performing Organization Address City/[facility] Phone Number [facility] DEPARTMENT OF PATHOLOGY AND [address] [place] [address] Partial thromboplastin time, activated (05/10/2018 10:45 AM)Only the most recent of2 resultswithin the time period is included. PTT 47.7 (H) 23.0 - 36.[address] [facility] DEPARTMENT OF PATHOLOGY Comment: AND [facility] PTT therapeutic range for unfractionated heparin is 61.0-112.0 seconds which corresponds to Anti-Xa 0.3-0.7 U/ml. Specimen Blood Performing Organization Address City/[facility] Phone Number [facility] DEPARTMENT OF PATHOLOGY AND [address] [place] [address] Prothrombin time with INR (05/10/2018 10:45 AM)Only the most recent of2 resultswithin the time period is included. Prothrombin time 14.3 12.0 - 15.[address] [facility] DEPARTMENT OF PATHOLOGY AND GENOMIC MEDICINE INR 1.[address] [facility] DEPARTMENT OF Comment: PATHOLOGY AND GENOMIC The International Normalized Ratio (INR) is a therapeutic MEDICINE monitoring tool for patients who are stable on oral anticoagulant therapy. An INR of 2.0-3.0 is suggested for deep vein thrombosis/pulmonary embolism. Specimen Blood Performing Organization Address [facility] Phone Number [facility] DEPARTMENT OF PATHOLOGY AND [address] [place] [address] Gram stain (05/10/2018 10:45 AM)Only the most recent of2 resultswithin the time period is included. Gram stain result No WBC's or organisms seen. [facility] DEPARTMENT OF PATHOLOGY Comment: AND [facility] Specimen Information Specimen Source: Urine Specimen Site: Clean catch Specimen Urine Performing Organization Address [facility] Phone Number [facility] DEPARTMENT OF PATHOLOGY AND [address] [place] [address] CBC with platelet and differential (05/10/2018 10:45 AM)Only the most recent of7 resultswithin the time period is included. WBC 6.04 4.50 - 11.00 k/uL [facility] DEPARTMENT OF PATHOLOGY AND GENOMIC MEDICINE RBC 3.35 (L) 4.40 - 6.00 m/uL [facility] DEPARTMENT OF PATHOLOGY AND GENOMIC MEDICINE HGB 9.6 (L) 14.0 - 18.0 g/dL [facility] DEPARTMENT OF PATHOLOGY AND GENOMIC MEDICINE HCT 30.0 (L) 41.0 - 51.0 % [facility] DEPARTMENT OF PATHOLOGY AND GENOMIC MEDICINE MCV 89.6 82.0 - 100.[address] [facility] DEPARTMENT OF PATHOLOGY AND GENOMIC MEDICINE MCH 28.7 27.0 - 34.[address] [facility] DEPARTMENT OF PATHOLOGY AND GENOMIC MEDICINE MCHC 32.0 31.0 - 37.0 g/dL [facility] DEPARTMENT OF PATHOLOGY AND GENOMIC MEDICINE RDW - SD 50.6 37.0 - 55.[address] [facility] DEPARTMENT OF PATHOLOGY AND GENOMIC MEDICINE MPV 9.6 8.8 - 13.[address] [facility] DEPARTMENT OF PATHOLOGY AND GENOMIC MEDICINE Platelet count 277 150 - 400 k/uL [facility] DEPARTMENT OF PATHOLOGY AND GENOMIC MEDICINE Nucleated RBC 0.00 /[address] [facility] DEPARTMENT OF PATHOLOGY AND GENOMIC MEDICINE Neutrophils 75.4 (H) 39.0 - 69.0 % [facility] DEPARTMENT OF PATHOLOGY AND GENOMIC MEDICINE Lymphocytes 12.3 (L) 25.0 - 45.0 % [facility] DEPARTMENT OF PATHOLOGY AND GENOMIC MEDICINE Monocytes 6.0 0.0 - 10.0 % [facility] DEPARTMENT OF PATHOLOGY AND GENOMIC MEDICINE Eosinophils 3.8 0.0 - 5.0 % [facility] DEPARTMENT OF PATHOLOGY AND GENOMIC MEDICINE Basophils 1.5 (H) 0.0 - 1.0 % [facility] DEPARTMENT OF PATHOLOGY AND GENOMIC MEDICINE Immature granulocytes 1.0Comment: 0.0 - 1.0 % [facility] DEPARTMENT OF "Immature PATHOLOGY AND GENOMIC granulocytes" MEDICINE (promyelocytes, myelocytes, metamyelocytes) Specimen Blood Performing Organization Address City/State/Zipcode Phone Number [facility] DEPARTMENT OF PATHOLOGY AND [address] [place] [phone] [facility] Urine culture (05/10/2018 10:45 AM) Urine culture isolate Mixed Gram positive juwan [facility] DEPARTMENT OF 10-3 cfu/ml PATHOLOGY AND GENOMIC (A) MEDICINE Comment: Specimen Information Specimen Source: Urine Specimen Site: Clean catch Specimen Urine Performing Organization Address City/[facility]/Zipcode Phone Number [facility] DEPARTMENT OF PATHOLOGY AND [address] [place] [address] [facility] Serum electrophoresis (05/10/2018 10:45 AM) Protein 6.7 6.3 - 8.3 g/dL [facility] DEPARTMENT OF Comment: PATHOLOGY AND GENOMIC [place] 4.6-7.0 g/dL MEDICINE 1 week 4.4-7.6 g/dL 7 months-1year5.1-7.3 g/dL 1-2 years5.6-7.5 g/dL >3 years6.0-8.0 g/dL 18-150 6.3-8.3 g/dL SPE albumin 3.52 (L) 4.00 - 5.30 g/dL [facility] DEPARTMENT OF PATHOLOGY AND GENOMIC MEDICINE SPE alpha 1 0.30 (H) 0.10 - 0.25 g/dL [facility] DEPARTMENT OF PATHOLOGY AND GENOMIC MEDICINE SPE alpha 2 0.88 (H) 0.58 - 0.84 g/dL [facility] DEPARTMENT OF PATHOLOGY AND GENOMIC MEDICINE SPE beta 0.62 0.50 - 1.10 g/dL [facility] DEPARTMENT OF PATHOLOGY AND GENOMIC MEDICINE SPE gamma 1.37 (H) 0.60 - 1.30 g/dL [facility] DEPARTMENT OF PATHOLOGY AND GENOMIC MEDICINE SPE extended See Comment [facility] DEPARTMENT OF interpretation Comment: PATHOLOGY AND GENOMIC Albumin is decreased while gamma globulins are diffusely increased and MEDICINE alpha-1 globulins and alpha-2 globulins are increased indicating a concomitant acute phase response and chronic disease pattern. SPE interpretation See CommentComment: [facility] DEPARTMENT OF Maira Collins MD; Clint [facility]OLOG[facility] AND [facility] PhD; MEDICINE Mathieu Angelo MD Specimen Serum Performing Organization Address City/[facility] Phone Number [facility] DEPARTMENT OF PATHOLOGY AND [address] [place] [address] Prostate specific antigen (05/10/2018 10:45 AM) PSA 0.6 0.0 - 4.0 ng/mL [facility] DEPARTMENT OF PATHOLOGY Comment: AND [facility] The GEORGE 8000 PSA immunoassay was used. Results obtained with different assay methods or kits should not be used interchangeably and may be different. Specimen Plasma specimen Performing Organization Address City/[facility] Phone Number [facility] DEPARTMENT OF PATHOLOGY AND [address] [place] [phone] [facility] Comprehensive metabolic panel (05/10/2018 10:45 AM)Only the most recent of5 resultswithin the time period is included. Sodium 139 135 - 148 mEq/L [facility] DEPARTMENT OF PATHOLOGY AND GENOMIC MEDICINE Potassium 4.6 3.5 - 5.0 mEq/L [facility] DEPARTMENT OF PATHOLOGY AND GENOMIC MEDICINE Chloride 96 (L) 98 - 112 mEq/L [facility] DEPARTMENT OF PATHOLOGY AND GENOMIC MEDICINE CO2 22 (L) 24 - 31 mEq/L [facility] DEPARTMENT OF PATHOLOGY AND GENOMIC MEDICINE Anion gap 21@ANIO (H) 7 - 15 mEq/L [facility] DEPARTMENT OF PATHOLOGY AND GENOMIC MEDICINE BUN 70 (H) 6 - 20 mg/dL [facility] DEPARTMENT OF PATHOLOGY AND GENOMIC MEDICINE Creatinine 10.4 (H) 0.7 - 1.2 mg/dL [facility] DEPARTMENT OF PATHOLOGY AND GENOMIC MEDICINE Glucose 138 (H) 65 - 99 mg/dL [facility] DEPARTMENT OF PATHOLOGY AND GENOMIC MEDICINE Calcium 8.0 (L) 8.3 - 10.2 mg/dL [facility] DEPARTMENT OF PATHOLOGY AND GENOMIC MEDICINE Protein 7.7 6.3 - 8.3 g/dL [facility] DEPARTMENT OF Comment: PATHOLOGY AND GENOMIC 4.6-7.0 g/dL MEDICINE 1 week 4.4-7.6 g/dL 7 months-1year5.1-7.3 g/dL 1-2 years5.6-7.5 g/dL >3 years6.0-8.0 g/dL 18-150 6.3-8.3 g/dL Albumin 2.6 (L) 3.5 - 5.0 g/dL [facility] DEPARTMENT OF PATHOLOGY AND GENOMIC MEDICINE A/G ratio 0.5 (L) 0.7 - 3.[address] [facility] DEPARTMENT OF PATHOLOGY AND GENOMIC MEDICINE Alkaline phosphatase 261 (H) 40 - 129 U/L [facility] DEPARTMENT OF PATHOLOGY AND GENOMIC MEDICINE AST 21 10 - 50 U/L [facility] DEPARTMENT OF PATHOLOGY AND GENOMIC MEDICINE ALT 18 5 - 50 U/L [facility] DEPARTMENT OF PATHOLOGY AND GENOMIC MEDICINE Total bilirubin 0.3 0.0 - 1.2 mg/dL [facility] DEPARTMENT OF PATHOLOGY AND GENOMIC MEDICINE Specimen Plasma specimen Performing Organization Address City/State/Zipcode Phone Number [facility] DEPARTMENT OF PATHOLOGY AND [address] [place] [address] GENOMIC MEDICINE POC glucose (02/05/2018 11:55 AM)Only the most recent of29 resultswithin the time period is included. POC glucose 94 65 - 99 mg/dL [facility] DEPARTMENT OF PATHOLOGY AND Comment: GENOMIC MEDICINE RN Notified Meter ID: [id number] Graphic Art Sales Representative: Lyubov Costa Performing Organization Address City/State/Zipcode Phone Number [facility] DEPARTMENT OF PATHOLOGY [address] [place] [address] AND GENOMIC MEDICINE Manual differential (02/04/2018 6:00 AM)Only the most recent of2 resultswithin the time period is included. Manual differential PERFORMED [facility] DEPARTMENT OF PATHOLOGY AND GENOMIC MEDICINE Neutrophils 69.0 39.0 - 69.0 % [facility] DEPARTMENT OF PATHOLOGY AND GENOMIC MEDICINE Lymphocytes 14.0 (L) 25.0 - 45.0 % [facility] DEPARTMENT OF PATHOLOGY AND GENOMIC MEDICINE Monocytes 11.0 (H) 0.0 - 10.0 % [facility] DEPARTMENT OF PATHOLOGY AND GENOMIC MEDICINE Eosinophils 3.0 0.0 - 5.0 % [facility] DEPARTMENT OF PATHOLOGY AND GENOMIC MEDICINE Basophils 2.0 (H) 0.0 - 1.0 % [facility] DEPARTMENT OF PATHOLOGY AND GENOMIC MEDICINE Metamyelocytes 1 % [facility] DEPARTMENT OF PATHOLOGY AND GENOMIC MEDICINE Platelet slide review Luci adequate [facility] DEPARTMENT OF PATHOLOGY AND GENOMIC MEDICINE Anisocytosis Moderate [facility] DEPARTMENT OF PATHOLOGY AND GENOMIC MEDICINE Polychromasia Moderate [facility] DEPARTMENT OF PATHOLOGY AND GENOMIC MEDICINE Tear drop cells Occasional [facility] DEPARTMENT OF PATHOLOGY AND GENOMIC MEDICINE Ovalocytes Moderate [facility] DEPARTMENT OF PATHOLOGY AND GENOMIC MEDICINE Enlarged platelets Moderate (A) [facility] DEPARTMENT OF PATHOLOGY AND GENOMIC MEDICINE Performing Organization Address City/State/Zipcode Phone Number [facility] DEPARTMENT OF PATHOLOGY [address] [place] [address] AND [facility] Basic metabolic panel (02/04/2018 6:00 AM)Only the most recent of2 resultswithin the time period is included. Sodium 139 135 - 148 mEq/L [facility] DEPARTMENT OF PATHOLOGY AND GENOMIC MEDICINE Potassium 3.8 3.5 - 5.0 mEq/L [facility] DEPARTMENT OF PATHOLOGY AND GENOMIC MEDICINE Chloride 97 (L) 98 - 112 mEq/L [facility] DEPARTMENT OF PATHOLOGY AND GENOMIC MEDICINE CO2 29 24 - 31 mEq/L [facility] DEPARTMENT OF PATHOLOGY AND GENOMIC MEDICINE Anion gap 13 7 - 15 mEq/L [facility] DEPARTMENT OF Comment: PATHOLOGY AND GENOMIC Starting from December , anion gap calculation MEDICINE no longer incorporates potassium. Please note the change. BUN 47 (H) 6 - 20 mg/dL [facility] DEPARTMENT OF PATHOLOGY AND GENOMIC MEDICINE Creatinine 8.2 (H) 0.7 - 1.2 mg/dL [facility] DEPARTMENT OF PATHOLOGY AND GENOMIC MEDICINE Glucose 89 65 - 99 mg/dL [facility] DEPARTMENT OF PATHOLOGY AND GENOMIC MEDICINE Calcium 8.1 (L) 8.3 - 10.2 mg/dL [facility] DEPARTMENT OF PATHOLOGY AND GENOMIC MEDICINE Specimen Plasma specimen Performing Organization Address [facility] Phone Number [facility] DEPARTMENT OF PATHOLOGY [address] [place] [address]. [place] [address] AND [facility] Phosphorus level (02/03/2018 6:00 AM)Only the most recent of3 resultswithin the time period is included. Phosphorus 6.1 (H) 2.4 - 4.5 mg/dL [facility] DEPARTMENT OF PATHOLOGY AND [facility] Specimen Plasma specimen Performing Organization Address [facility] Phone Number [facility] DEPARTMENT OF PATHOLOGY [address] [place] [address]. [place] [address] AND [facility] Rapid HIV 1 & 2 (02/02/2018 12:45 PM) Rapid HIV 1 and 2 Non-Reactive Non-Reactive [facility] DEPARTMENT OF PATHOLOGY AND [facility] Specimen Blood Performing Organization Address [facility] Phone Number [facility] DEPARTMENT OF PATHOLOGY [address] [place] [address]. [place] [address] AND [facility] IR Lumbar Puncture by Radiology (02/02/2018 11:41 AM) Narrative Performed At EXAMINATION: IR LUMBAR PUNCTURE [facility] CLINICAL HISTORY: Encephalitis COMPARISON:MRI brain dated February 01, 2018 TECHNIQUE: Informed consent and a timeout was performed. The patient's lower back was prepped and draped in the usual sterile fashion. Fluoroscopy was used for image guidance for lumbar puncture. FINDINGS: 1% lidocaine was used for local anesthesia. Under direct fluoroscopic guidance, access to the thecal sac was made with a 27-gauge spinal needle at the L3-L4 level. A total of approximately 16 cc of clear colorless CSF was removed without difficulty. The patient tolerated the procedure well. There were no complications. The sample was sent to the laboratory for analysis as requested. Total fluoroscopy time was 0.08 minutes.Total radiation dose is 16 mGy=Ka,r IMPRESSION: Successful fluoroscopic guided lumbar puncture as detailed above. [facility]-[id number] Procedure Note Interface, Radiology Results Incoming - 02/02/2018 6:00 PM CDT EXAMINATION: IR LUMBAR PUNCTURE CLINICAL HISTORY: Encephalitis COMPARISON: MRI brain dated February 01, 2018 TECHNIQUE: Informed consent and a timeout was performed. The patient's lower back was prepped and draped in the usual sterile fashion. Fluoroscopy was used for image guidance for lumbar puncture. FINDINGS: 1% lidocaine was used for local anesthesia. Under direct fluoroscopic guidance , access to the thecal sac was made with a 27-gauge spinal needle at the L3-L4 level. A total of approximately 16 cc of clear colorless CSF was removed without difficulty. The patient tolerated the procedure well. There were no complications. The sample was sent to the laboratory for analysis as requested. Total fluoroscopy time was 0.08 minutes. Total radiation dose is 16 mGy=Ka,r IMPRESSION: Successful fluoroscopic guided lumbar puncture as detailed above. [id number] Performing Organization Address [facility] Phone Number [facility] [address] [place] [address] Varicella zoster by PCR (02/02/2018 11:35 AM)Only the most recent of2 resultswithin the time period is included. VZV result Not-Detected Not-Detected [facility] DEPARTMENT OF copies/mL PATHOLOGY AND GENOMIC MEDICINE Varicella zoster, PCR See link below for [facility] DEPARTMENT OF PDF Lab PATHOLOGY AND GENOMIC ReportComment: Case MEDICINE Number: [id number] Performing Organization Address [facility] Phone Number [facility] DEPARTMENT OF PATHOLOGY AND [address] [place] [address] Herpes simplex virus by PCR (02/02/2018 11:35 AM) Herpes virus, PCR Not-Detected Not-Detected [facility] DEPARTMENT OF PATHOLOGY AND GENOMIC MEDICINE Herpes virus, PCR See link below for PDF [facility] DEPARTMENT OF PATHOLOGY Lab ReportComment: Case AND GENOMIC MEDICINE Number: [id number] Performing Organization Address [facility] Phone Number [facility] DEPARTMENT OF PATHOLOGY AND [address] [place] [address] AFB culture (02/02/2018 11:35 AM) AFB culture isolate No growth after 6 weeks of incubation. [facility] DEPARTMENT OF PATHOLOGY Comment: AND [facility] MEDICINE Specimen Information Specimen Source: CSF (Spinal Fluid) Specimen Site: Back Specimen Cerebrospinal fluid - Back Performing Organization Address [facility] Phone Number [facility] DEPARTMENT OF PATHOLOGY AND [address] [place] [address] Cryptococcal antigen, screen (02/02/2018 11:35 AM) Cryptococcal Ag Negative - No Cryptococcus antigen detected. [facility] DEPARTMENT OF PATHOLOGY Comment: AND GENOMIC MEDICINE Specimen Information Specimen Source: CSF (Spinal Fluid) Specimen Site: Back Specimen Cerebrospinal fluid - Back Performing Organization Address [facility]/Zipcode Phone Number [facility] DEPARTMENT OF PATHOLOGY AND [address] [place] [id number] [place] [address] Enterovirus by PCR (02/02/2018 11:35 AM) Enterovirus PCR Not-Detected Not-Detected [facility] DEPARTMENT OF PATHOLOGY AND GENOMIC MEDICINE Enterovirus PCR See link below for PDF Lab [facility] DEPARTMENT OF PATHOLOGY ReportComment: Case AND GENOMIC MEDICINE Number: [id number] Performing Organization Address City/[facility] Phone Number [facility] DEPARTMENT OF PATHOLOGY AND [address] [place] [phone] [facility] CSF culture (02/02/2018 11:35 AM) CSF culture isolate No growth after [address] [facility] DEPARTMENT OF PATHOLOGY Comment: AND GENOMIC MEDICINE Specimen Information Specimen Source: CSF (Spinal Fluid) Specimen Site: Back Specimen Cerebrospinal fluid - Back Performing Organization Address [facility] Phone Number [facility] DEPARTMENT OF PATHOLOGY AND [address] [place], [place] [phone] [facility] Fungus culture (02/02/2018 11:35 AM) Fungus culture isolate No growth after 4 weeks of incubation[address] [facility] DEPARTMENT OF Comment: PATHOLOGY AND GENOMIC Specimen Information MEDICINE Specimen Source: CSF (Spinal Fluid) Specimen Site: Back Specimen Cerebrospinal fluid - Back Performing Organization Address [facility] Phone Number [facility] DEPARTMENT OF PATHOLOGY AND [address] [place] [phone] [facility] CSF cell count with differential (02/02/2018 11:35 AM) Color, CSF Colorless [facility] DEPARTMENT OF PATHOLOGY AND GENOMIC MEDICINE Appearance, CSF Clear [facility] DEPARTMENT OF PATHOLOGY AND GENOMIC MEDICINE CSF supernatant Colorless [facility] DEPARTMENT OF PATHOLOGY AND GENOMIC MEDICINE RBC, CSF 0 0 - 1 /CMM [facility] DEPARTMENT OF PATHOLOGY AND GENOMIC MEDICINE WBC, CSF 2 0 - 5 /CMM [facility] DEPARTMENT OF PATHOLOGY AND GENOMIC MEDICINE Specimen Cerebrospinal fluid Performing Organization Address City/[facility]/Zipcode Phone Number [facility] DEPARTMENT OF PATHOLOGY [address] [phone] AND [facility] MEDICINE Protein, CSF (02/02/2018 11:35 AM) Protein, CSF 44 15 - 45 mg/dL [facility] DEPARTMENT OF PATHOLOGY AND GENOMIC MEDICINE Specimen Cerebrospinal fluid Performing Organization Address City/[facility]/Zipcode Phone Number [facility] DEPARTMENT OF PATHOLOGY [address] [place] [address]. [place] [address] AND [facility] Glucose level, CSF (02/02/2018 11:35 AM) Glucose, CSF 65 40 - 70 mg/dL [facility] DEPARTMENT OF PATHOLOGY AND GENOMIC MEDICINE Specimen Cerebrospinal fluid Performing Organization Address City/[facility]/Zipcode Phone Number [facility] DEPARTMENT OF PATHOLOGY [address] [place] [address]. [place] [address] AND [facility] Hemoglobin A1c (02/02/2018 5:40 AM) Hemoglobin A1C 6.4 (H) 4.0 - 6.0 % [facility] DEPARTMENT OF PATHOLOGY Comment: AND [facility] MEDICINE Less than 6% - Goal of therapy for Type II Diabetes Less than 7%-Goal of therapy for Type I Diabetes Less than 8%-Acceptable control for Type I or Type II Diabetes Greater than 8%-Unacceptable control; action indicated. ([id number]) Specimen Blood Performing Organization Address [facility]/Zipcode Phone Number [facility] DEPARTMENT OF PATHOLOGY [id number] [place] [address]. [place] [address] AND [facility] Lipid panel (02/02/2018 5:40 AM) Cholesterol 132 0 - 199 mg/dL [facility] DEPARTMENT OF PATHOLOGY AND GENOMIC MEDICINE Triglycerides 170 (H) 0 - 149 mg/dL [facility] DEPARTMENT OF PATHOLOGY AND GENOMIC MEDICINE HDL cholesterol 42 40 - 99,999 [facility] DEPARTMENT OF mg/dL PATHOLOGY AND GENOMIC MEDICINE LDL cholesterol 56 0 - 99 mg/dL [facility] DEPARTMENT OF PATHOLOGY AND GENOMIC MEDICINE Lipid panel See below [facility] DEPARTMENT OF interpretation Comment: PATHOLOGY AND Total Cholesterol (mg/dL) GENOMIC MEDICINE <200 Desirable [id number] >=240High Triglycerides (mg/dL) <150 Normal [id number] 200-499High >=500Very high HDL Cholesterol (mg/dL) <40Low (male) <50Low (female) LDL Cholesterol (mg/dL) <100 Optimal 100-129Near or above optimal [phone]-alim 160-189High >=190Very high Risk Catergories that modify LDL goals. Risk CatergoriesLDL goal (mg/dL) CHD and CHD risk equivalent<100 (10-year risk >20%) Multiple (2+) risk factors <130 (10-year risk=<20%) 0-1 risk factors <160 (<10-year risk) Defining levels of lipids in metabolic syndrome Triglycerides>=150 mg/dL HDL Cholesterol Men<40 mg/dL Women<50 mg/dL Non-HDL cholesterol is a second target for therapy in persons with high triglycerides (>=200 mg/dL) Specimen Plasma specimen Performing Organization Address City/State/Zipcode Phone Number [facility] DEPARTMENT OF PATHOLOGY [address] [facility] [id number] AND [facility] MEDICINE MRA Neck Wo Contrast (02/01/2018 2:52 PM) Narrative Performed At EXAMINATION:[facility]ECK [facility] CLINICAL HISTORY:slurred speech COMPARISON:None. TECHNIQUE: Neck MRA using 2D and 3D tufm-le-bnghqx technique with multi-planar MIP and 3D reconstruction. Multiplanar T1 fat sat images were also obtained. FINDINGS: Motion artifact significantly limits the diagnostic utility of the exam. The bilateral cervical carotid and vertebral arterial systems appear grossly patent with some areas not evaluated secondary to significant artifact, notably the proximal right internal carotid artery. Dominant left vertebral artery. No dissection identified. IMPRESSION: Motion artifact significantly limits the diagnostic utility of the exam. Within these limitations, the bilateral cervical carotid and vertebral arterial systems appear grossly patent. CTA of the neck could be performed if clinically indicated. [id number] Procedure Note Interface, Radiology Results Incoming - 02/01/2018 3:01 PM CDT EXAMINATION: MRA NECK WO CONTRAST CLINICAL HISTORY: slurred speech COMPARISON: None. TECHNIQUE: Neck MRA using 2D and 3D cplf-wp-slqjaa technique with multi-planar MIP and 3D reconstruction. Multiplanar T1 fat sat images were also obtained. FINDINGS: Motion artifact significantly limits the diagnostic utility of the exam. The bilateral cervical carotid and vertebral arterial systems appear grossly patent with some areas not evaluated secondary to significant artifact, notably the proximal right internal carotid artery. Dominant left vertebral artery. No dissection identified. IMPRESSION: Motion artifact significantly limits the diagnostic utility of the exam. Within these limitations, the bilateral cervical carotid and vertebral arterial systems appear grossly patent. CTA of the neck could be performed if clinically indicated. [id number] Performing Organization Address [facility] Phone Number [facility] [address] [place] [address] MRA Head Wo Contrast (02/01/2018 2:52 PM) Narrative Performed At EXAMINATION:MRA HEAD WO CONTRAST [facility] CLINICAL HISTORY:slurred speech COMPARISON:None. TECHNIQUE: Xygf-al-jymckl MR angiography was performed without contrast and includes 3-D MIP image reconstructions FINDINGS: The large intracranial arteries are patent. 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 There is no definite large vessel stenosis or occlusion or definite aneurysm. IMPRESSION: Patency of the large intracranial arteries. [id number] Procedure Note Interface, Radiology Results Incoming - 02/01/2018 2:59 PM CDT EXAMINATION: MRA HEAD WO CONTRAST CLINICAL HISTORY: slurred speech COMPARISON: None. TECHNIQUE: Ccfx-eg-gmbxni MR angiography was performed without contrast and includes 3-D MIP image reconstructions FINDINGS: The large intracranial arteries are patent. 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 There is no definite large vessel stenosis or occlusion or definite aneurysm. IMPRESSION: Patency of the large intracranial arteries. [id number] Performing Organization Address [facility] Phone Number [facility] [address] [place] [address] MRI Stroke Brain Wo Contrast (02/01/2018 2:21 PM) Narrative Performed At EXAMINATION: MRI STROKE BRAIN WO CONTRAST [facility] CLINICAL HISTORY: slurred speech COMPARISON:CT head 01/31/2018. TECHNIQUE: Multiplanar and multisequence MRI imaging of the brain was obtained without contrast. FINDINGS: No evidence of acute intracranial hemorrhage, mass, mass effect, acute infarct or midline shift. Minimal suspected chronic microvascular ischemic changes within the supratentorial white matter. Ventricles and sulci are normal in appearance for patient's age. No abnormal susceptibility. Basal cisterns are clear. Major intracranial flow voids are maintained. Orbits are normal in appearance. Visualized paranasal sinuses and mastoid air cells are clear. IMPRESSION: 1. No acute intracranial abnormality. [id number] Procedure Note Interface, Radiology Results Incoming - 02/01/2018 2:27 PM CDT EXAMINATION: MRI STROKE BRAIN WO CONTRAST CLINICAL HISTORY: slurred speech COMPARISON: CT head 01/31/2018. TECHNIQUE: Multiplanar and multisequence MRI imaging of the brain was obtained without contrast. FINDINGS: No evidence of acute intracranial hemorrhage, mass, mass effect, acute infarct or midline shift. Minimal suspected chronic microvascular ischemic changes within the supratentorial white matter. Ventricles and sulci are normal in appearance for patient's age. No abnormal susceptibility. Basal cisterns are clear. Major intracranial flow voids are maintained. Orbits are normal in appearance. Visualized paranasal sinuses and mastoid air cells are clear. IMPRESSION: 1. No acute intracranial abnormality. [id number] Performing Organization Address City/State/Zipcode Phone Number [facility] [address] [place] [address] EEG (routine) (02/01/2018 10:12 AM) Narrative Performed At Date of Study Completion: February 01, 2018 [facility] DEPARTMENT OF PATHOLOGY AND Date of Interpretation: February 01, 2018 GENOMIC MEDICINE Ordering Provider: Rubina Isbell NP Inpatient Electroencephalogram Report History: 57-year-old male being treated after a possible seizure spells. Please evaluate the underlying cerebral activity and rule out interictal epileptiform discharges. Technical Description: The recording was started at 10:06 AM and ended at 10:27 AM on February 01, 2018. It was a digitally recorded multi-montage EEG with 21 electrodes placed according to the International 10/20 system. An EKG strip was recorded continuously. True eye leads were not employed.True temporal leads were not employed. EEG Description: When maximally aroused, the awake background was characterized by a symmetric posterior rhythm maximally measured at 8 to 9 Hz, 20 to 40 microvolts in amplitude that attenuated appropriately to eye opening. Overall adequate symmetry was maintained. The patient becomes drowsy over the course of the recording as evidenced by the dropout of the posterior rhythm and the emergence of a diffuse irregular slow background activity. No definitive interictal epileptiform discharges or electrographic seizures were appreciated. Sleep Recording: Stage II sleep was not recorded. Activation Procedures: Hyperventilation was not attempted. Photic stimulation utilizing flash frequencies ranging from 5 to 30 Hz did not elicit a driving response. EEG Interpretation:This was an abnormal awake and drowsy EEG. 1. Posterior rhythm slowing. 2. No paroxysmal discharges were observed. Clinical Correlation: 1. There was evidence of a mild encephalopathy, nonspecific in regards to etiology. 2. There was no definitive evidence of interictal epileptiform discharges, electrographic seizures, or status epilepticus seen over the course of this tracing. Performing Organization Address City/[facility] Phone Number [facility] DEPARTMENT OF PATHOLOGY [address] [facility] [place] [address] [address] [facility] Ammonia level (02/01/2018 6:25 AM) Ammonia 28 16 - 60 umol/L [facility] DEPARTMENT OF PATHOLOGY AND [facility] Specimen Plasma specimen Performing Organization Address [facility] Phone Number [facility] DEPARTMENT OF PATHOLOGY [address] [facility] [place] [address] [address] [facility] Gastrointestinal panel (01/31/2018 9:30 PM) Gastrointestinal panel Negative for all pathogens tested: [facility] DEPARTMENT OF Negative for Salmonella PATHOLOGY AND GENOMIC Negative for Campylobacter MEDICINE Negative for Diarrheagenic E coli/Shigella Negative for Shiga-like toxin-producing E coli Negative for Plesiomonas shigelloides Negative for Yersinia enterocolitica Negative for Vibrio species Negative for Clostridium difficile (Toxin A/B) Negative for Cryptosporidium Negative for Giardia lamblia Negative for Cyclospora cayeteanensis Negative for Entamoeba histolytica Negative for Adenovirus F 40/41 Negative for Astrovirus Negative for Norovirus GI/GII Negative for Rotavirus A Negative for Sapovirus Negative for Clostridium difficile toxin Negative for E coli 0157 This real-time PCR assay detects the presence of nucleic acids (RNA or DNA) for the gastrointestinal pathogens listed. A result of "Not-detected" does not exclude the possibility of the presence of one or more pathogens at concentrations less than the detectable limits of the assay. Comment: Specimen Information Specimen Source: Stool Specimen Site: Nonpreserved Specimen Stool - Nonpreserved Performing Organization Address [facility] Phone Number [facility] DEPARTMENT OF PATHOLOGY AND [address] [place] [address] [facility] MEDICINE PV duplex venous lower extremity (01/31/2018 8:41 PM) Narrative Performed At EXAMINATION:US DUPLEX VENOUS LOWER EXTREMITY BILATERAL HM [facility] CLINICAL HISTORY:swelling COMPARISON:None. TECHNIQUE:Grayscale, color Doppler, and spectral waveform analysis of the bilateral lower extremity deep venous systems was performed. The bilateral common femoral, superficial femoral, proximal deep femoral, greater saphenous, and popliteal veins were evaluated. The calf vessels were also evaluated. FINDINGS: The bilateral common femoral, superficial femoral, and popliteal veins are compressible. They demonstrate normal venous waveforms and response to augmentation. There is flow in the visualized calf veins. IMPRESSION: No evidence of deep venous thrombosis. [facility]-[id number] Procedure Note Interface, Radiology Results Incoming - 01/31/2018 8:59 PM CDT EXAMINATION: US DUPLEX VENOUS LOWER EXTREMITY BILATERAL CLINICAL HISTORY: swelling COMPARISON: None. TECHNIQUE: Grayscale, color Doppler, and spectral waveform analysis of the bilateral lower extremity deep venous systems was performed. The bilateral common femoral, superficial femoral, proximal deep femoral, greater saphenous, and popliteal veins were evaluated. The calf vessels were also evaluated. FINDINGS: The bilateral common femoral, superficial femoral, and popliteal veins are compressible. They demonstrate normal venous waveforms and response to augmentation. There is flow in the visualized calf veins. IMPRESSION: No evidence of deep venous thrombosis. [facility]-[id number] Performing Organization Address City/[facility]/Zipcode Phone Number [facility] [address] [place] [address] Lactic acid level, SEPSIS - Now and repeat 2x every 3 hours (01/31/2018 8:40 PM )Only the most recent of3 resultswithin the time period is included. Lactic acid 1.0 0.5 - 2.2 mmol/L [facility] DEPARTMENT OF PATHOLOGY AND [facility] MEDICINE Specimen Plasma specimen Performing Organization Address [facility] Phone Number [facility] DEPARTMENT OF PATHOLOGY [address] [place] [address]. [place] [address] AND [facility] Uric acid level (01/31/2018 5:58 PM) Uric acid 8.1 (H) 3.4 - 7.0 mg/dL [facility] DEPARTMENT OF PATHOLOGY AND GENOMIC MEDICINE Specimen Plasma specimen Performing Organization Address [facility]/Zipcode Phone Number [facility] DEPARTMENT OF PATHOLOGY [address] [place] [address]. [place] [address] AND [facility] Thyroid stimulating hormone (01/31/2018 5:58 PM) TSH 4.17 0.27 - 4.20 uIU/mL [facility] DEPARTMENT OF PATHOLOGY AND [facility] Specimen Plasma specimen Performing Organization Address City/[facility]/Zipcode Phone Number [facility] DEPARTMENT OF PATHOLOGY [address] [place] [address]. [place] [address] AND [facility]ICINE XR Chest 1 Vw Portable (01/31/2018 2:43 PM) Narrative Performed At EXAMINATION:XR CHEST 1 VW PORTABLE [facility] CLINICAL HISTORY:Cough, evaluation for pneumonia COMPARISON:Chest x-ray 07/01/2002 IMPRESSION: Single frontal view reveals a stable cardiomediastinal silhouette. Lungs are clear. Pleural margins are sharp. The remainder of the examination is unchanged. [facility]-[id number] Procedure Note Hm Interface, Radiology Results Incoming - 01/31/2018 2:49 PM CDT EXAMINATION: XR CHEST 1 VW PORTABLE CLINICAL HISTORY: Cough, evaluation for pneumonia COMPARISON: Chest x-ray 07/01/2002 IMPRESSION: Single frontal view reveals a stable cardiomediastinal silhouette. Lungs are clear. Pleural margins are sharp. The remainder of the examination is unchanged. [facility]-[id number] Performing Organization Address City/State/Zipcode Phone Number [facility] [address] [place] [phone] Blood culture, aerobic & anaerobic (01/31/2018 2:39 PM)Only the most recent of2 resultswithin the time period is included. Blood culture isolate No growth after 5 days of incubation. [facility] DEPARTMENT OF Comment: PATHOLOGY AND GENOMIC Specimen Information MEDICINE Specimen Source: Blood Specimen Site: Antecubital, right Specimen Blood - Antecubital, right Performing Organization Address City/[facility] Phone Number [facility] DEPARTMENT OF PATHOLOGY AND [address] [place] [address] [facility] Group A strep, rapid antigen (01/31/2018 2:32 PM) Group A strep, rapid Negative for Group A Streptococcus antigen. [facility] DEPARTMENT OF antigen result Comment: PATHOLOGY AND GENOMIC Specimen Information MEDICINE Specimen Source: Throat Specimen Site: Not otherwise specified Specimen Throat - Not otherwise specified Performing Organization Address City/State/Zipcode Phone Number [facility] DEPARTMENT OF PATHOLOGY [address] [place] [address] [address] [facility] Strep screen culture (01/31/2018 2:32 PM) Strep screen culture No beta hemolytic Streptococci isolated [facility] DEPARTMENT OF isolate Comment: PATHOLOGY AND GENOMIC Specimen Information MEDICINE Specimen Source: Throat Specimen Site: Not otherwise specified Specimen Throat - Not otherwise specified Performing Organization Address City/[facility]/Zipcode Phone Number [facility] DEPARTMENT OF PATHOLOGY AND [address] [place] [address], [place] [id number] [place] [address] Respiratory pathogen panel (01/31/2018 2:30 PM) Respiratory pathogen Negative for all pathogens tested: [facility] DEPARTMENT OF panel Negative for Adenovirus PATHOLOGY AND GENOMIC Negative for Coronavirus HKU1 MEDICINE Negative for Coronavirus NL63 Negative for Coronavirus 229E Negative for Coronavirus OC43 Negative for Human Metapneumovirus Negative for Rhinovirus/Enterovirus Negative for Influenza A Negative for Influenza A/H1 Negative for Influenza A/H3 Negative for Influenza A/H1-2009 Negative for Influenza B Negative for Parainfluenza Virus 1 Negative for Parainfluenza Virus 2 Negative for Parainfluenza Virus 3 Negative for Parainfluenza Virus 4 Negative for Respiratory Syncytial Virus Negative for Bordetella pertussis Negative for Chlamydophila pneumoniae Negative for Mycoplasma pneumoniae This real-time PCR assay detects the presence of nucleic acids (RNA or DNA) for the respiratory pathogens listed. A result of "Not-detected" does not exclude the possibility of the presence of one or more pathogens at concentrations less than the detectable limits of the assay. Comment: Specimen Information Specimen Source: Nares Specimen Site: Left Specimen Nares - Left Performing Organization Address City/State/Zipcode Phone Number [facility] DEPARTMENT OF PATHOLOGY AND [address] [place] [address] Influenza antigen (01/31/2018 2:30 PM) Influenza antigen Negative for Influenza A/B antigen. [facility] DEPARTMENT OF PATHOLOGY Comment: AND [facility] Specimen Information Specimen Source: Nares Specimen Site: Left Specimen Nares - Left Performing Organization Address City/State/Zipcode Phone Number [facility] DEPARTMENT OF PATHOLOGY [address] [place] [address] AND [facility] CT Head Wo Contrast (01/31/2018 2:27 PM) Narrative Performed At Examination: CT HEAD WO CONTRAST [facility] Clinical History: speech changes opn Monday Comparison: NONE Technique: Multiple axial CT images of the brain are obtained without the use of intravenous contrast. CT scans are performed using radiation dose reduction techniques. Technical factors are evaluated and adjusted to ensure appropriate moderation of exposure. Automated dose management technology is applied to adjust radiation dose to minimize exposure, while achieving a diagnostic image. FINDINGS: The visualized paranasal sinuses are clear. The mastoid air cells are well aerated. The globes and optic nerves are unremarkable. The ventricles are symmetrical. There is no mass effect or any midline shift. There is no evidence of any extra-axial fluid collection. There is no parenchymal hemorrhage or mass lesion. There is maintenance of the dunlap-white junction.There is a small lacunar infarct seen within the left basal ganglia. The posterior fossa does not demonstrate any masses. IMPRESSION: 1. There Is no acute intracranial abnormality. 2. There is a small lacunar infarct in the left basal ganglia. 3. If Further evaluation is needed, MRI imaging should be considered. [id number] Procedure Note Interface, Radiology Results Incoming - 01/31/2018 2:34 PM CDT Examination: CT HEAD WO CONTRAST Clinical History: speech changes opn Monday Comparison: NONE Technique: Multiple axial CT images of the brain are obtained without the use of intravenous contrast. CT scans are performed using radiation dose reduction techniques. Technical factors are evaluated and adjusted to ensure appropriate moderation of exposure. Automated dose management technology is applied to adjust radiation dose to minimize exposure, while achieving a diagnostic image. FINDINGS: The visualized paranasal sinuses are clear. The mastoid air cells are well aerated. The globes and optic nerves are unremarkable. The ventricles are symmetrical. There is no mass effect or any midline shift. There is no evidence of any extra-axial fluid collection. There is no parenchymal hemorrhage or mass lesion. There is maintenance of the dunlap-white junction. There is a small lacunar infarct seen within the left basal ganglia. The posterior fossa does not demonstrate any masses. IMPRESSION: 1. There Is no acute intracranial abnormality. 2. There is a small lacunar infarct in the left basal ganglia. 3. If Further evaluation is needed, MRI imaging should be considered. [id number] Performing Organization Address City/State/Zipcode Phone Number [facility] [address] [place] [address] POC panel 4 (11/07/2017 7:44 AM) POC sodium 141 135 - 148 meq/L [facility] DEPARTMENT OF PATHOLOGY AND GENOMIC MEDICINE POC potassium 4.8 3.5 - 5.0 meq/L [facility] DEPARTMENT OF PATHOLOGY AND GENOMIC MEDICINE POC hematocrit 33 (L) 41 - 51 % [facility] DEPARTMENT OF PATHOLOGY AND GENOMIC MEDICINE POC glucose 65 65 - 99 mg/dL [facility] DEPARTMENT OF PATHOLOGY AND GENOMIC MEDICINE POC hemoglobin 11.2 (L) 14.0 - 18.0 g/dL [facility] DEPARTMENT OF PATHOLOGY AND GENOMIC MEDICINE Specimen Blood Performing Organization Address City/State/Zipcode Phone Number [facility] DEPARTMENT OF PATHOLOGY [address] [facility] [place] [address] AND GENOMIC MEDICINE after 07/14/2017 Insurance Payer Benefit Plan / Group Subscriber ID Type Phone Address BCBS BCBS CHOICE PPO/[employer] PPO xxxxxxxxxxxx PPO MEDICARE MEDICARE PART A AND B xxxxxxxxxx Medicare [place], [place] Home: [address] [phone] [address] MARNIE LYLES Transplant Self 1960 Home: [address] [phone] [address]
[2018-07-15] MEDS ORDERED: CEFTRIAXONE/SWI 1gm 1 GM/10 ML SYR ONE (17:22)
[2018-07-15] MEDS ORDERED: LEVALBUTEROL 1.25 MG/3 ML NEB ONE (17:22)
--- NOTE | 2018-07-15 17:42 | RAD REPORT ---
EXAM DESCRIPTION: CT - Head Brain Wo Cont - 07/15/2018 5:19 pm CLINICAL HISTORY: Cough and congestion, fever, shortness of breath COMPARISON: CT November 2015 TECHNIQUE: Axial 5 mm thick images of the head were obtained without IV contrast. All CT scans are performed using dose optimization technique as appropriate and may include automated exposure control or mA/KV adjustment according to patient size. FINDINGS: No intracranial hemorrhage, mass, edema or shift of mid-line structures. No acute infarcti on changes seen. No significant chronic ischemic changes identifiable. There is some underlying volum e loss that has progressed since 2016. Ventricles are in proportion to volume loss. Mastoid air cells and visualized portions of the paranasal sinuses are clear. No acute bony findings. IMPRESSION: No acute intracranial finding. Volume loss changes are present of progressed since 2015 and greater than typically seen at this age.
[2018-07-15] MEDS ORDERED: VANCOMYCIN 1 GM/VIAL ONE (17:44)
[2018-07-15] MEDS ORDERED: VANCOMYCIN 1 GM/250 ML BAG ONE (17:45)
[2018-07-15 17:47] LABS: Absolute Lymphocytes (CBC) 1.1 K/uL (0.7-4.9); Absolute Monocytes 0.5 K/uL (0.1-1.3); Absolute Neutrophil 4.2 K/uL (1.8-8.0); Basophils % 1.5 % (0-1.3); Eosinophils % 1.7 % (0-4.4); Hematocrit 24.4 % (39.6-49.0); Lymphocytes % 18.3 % (15.3-44.8); MCH 28.1 pg (27.0-35.0); MCV 83.9 fL (80-100); MPV 7.8 fL (7.6-11.3); RBC Red Blood Cell Count 2.91 M/uL (4.33-5.43)
[2018-07-15 18:12] LABS: Albumin 2.3 g/dL (3.4-5.0); Bilirubin Direct 0.4 mg/dL (0-0.2); Bilirubin Total 0.7 mg/dL (0.2-1.0); Potassium 5.1 mmol/L (3.5-5.1); Protein, Total 6.9 g/dL (6.4-8.2); Troponin (Emerg Dept Use Only) 0.22 ng/mL (0.0-0.045)
[2018-07-15 18:33] LABS: Protime INR 1.16
--- NOTE | 2018-07-15 18:56 | ER ---
Nurse's Notes [facility] Name: Wade Koehler Age: 58 yrs Sex: Male : 1960 Arrival Date: 07/15/2018 Time: 16:33 Bed 6 Private MD: Dante Best V Diagnosis: Shortness of breath;Acute upper respiratory infection, unspecified Presentation: 07/15 16:38 Presenting complaint: Patient states: Cough, chest congestion, fever and shortness of aj1 breath at night for the past 2 days. Denies chest pain. Today he had a hard time putting on his shoes because he was dizzy and when he went to get in the truck he wasn't able to see anything for 2 minutes. Reports that his vision is normal now. Transition of care: patient was not received from another setting of care. Onset of symptoms was July 13, 2018. Risk Assessment: Do you want to hurt yourself or someone else? Patient reports no desire to harm self or others. Initial Sepsis Screen: Does the patient meet any 2 criteria? No. Patient's initial sepsis screen is negative. Does the patient have a suspected source of infection? Yes: Productive cough/pneumonia. Care prior to arrival: None. 16:38 Method Of Arrival: Wheelchair aj1 16:38 Acuity: WILFREDO 3 aj1 Triage Assessment: 16:48 General: Appears in no apparent distress. uncomfortable, Behavior is calm, cooperative, aj1 appropriate for age. Pain: Pain currently is 4 out of 10 on a pain scale. EENT:. Neuro: Level of Consciousness is awake, alert, obeys commands. Cardiovascular: Patient's skin is warm and dry. Respiratory: Airway is patent Respiratory effort is even, unlabored, Respiratory pattern is regular, symmetrical. Historical: - Allergies: 16:48 NKA; aj1 - Home Meds: 16:48 gabapentin 600 mg Oral tab 1 tab twice a day [Active]; Lantus Sub-Q daily [Active]; aj1 metolazone 5 mg oral tab 2 tabs twice daily [Active]; metoprolol succinate 50 mg Oral Tb24 1 tab once daily [Active]; nifedipine 60 mg Oral TbER 1 tab once daily [Active]; sevelamer HCl oral oral 4 tabs with meals [Active]; bumetanide 2 mg Oral tab 1 tab 2 times per day [Active]; duloxetine 30 mg oral cpDR 1 cap once daily [Active]; hydralazine 100 mg Oral tab 1 tab 3 times per day [Active]; Lyrica 25 mg Oral 4 caps daily [Active]; carvedilol 6.25 mg oral tab 1 tab daily [Active]; losartan 100 mg oral tab 1 tab once daily [Active]; bumetanide 2 mg Oral tab 1 tab 2 times per day [Active]; - PMHx: 16:48 Diabetes - IDDM; Hypertension; PERIPHERAL NEUROPATHY; Dialysis; at home seven days a aj1 week'; ESRD; - Immunization history:: Flu vaccine is up to date. - Social history:: Smoking status: Patient/guardian denies using tobacco. - Ebola Screening: : Patient denies travel to an Ebola-affected area in the 21 days before illness onset. Screenin:58 Abuse screen: Denies threats or abuse. Denies injuries from another. Nutritional bp screening: No deficits noted. Tuberculosis screening: No symptoms or risk factors identified. Fall Risk None identified. Assessment: 16:59 General: Appears in no apparent distress. comfortable, Behavior is calm, cooperative, bp appropriate for age. Pain: Denies pain. Neuro: Level of Consciousness is awake, alert, obeys commands, Oriented to person, place, time, situation, Appropriate for age. Cardiovascular: No deficits noted. Cardiovascular: Patient's skin is warm and dry. Respiratory: Airway is patent Respiratory effort is even, unlabored, Respiratory pattern is regular, symmetrical, Breath sounds are clear bilaterally. GI: No signs and/or symptoms were reported involving the gastrointestinal system. : No signs and/or symptoms were reported regarding the genitourinary system. EENT: Reports nasal congestion. Derm: No deficits noted. Musculoskeletal: Circulation, motion, and sensation intact. Range of motion: intact in all extremities. 18:00 Reassessment: Patient appears in no apparent distress at this time. Patient and/or hb family updated on plan of care and expected duration. Pain level reassessed. Patient is alert, oriented x 3, equal unlabored respirations, skin warm/dry/pink. 19:26 Reassessment: Patient appears in no apparent distress at this time. No changes from ak1 previously documented assessment. Patient and/or family updated on plan of care and expected duration. Pain level reassessed. Patient is alert, oriented x 3, equal unlabored respirations, skin warm/dry/pink. 21:31 Reassessment: pt is A\T\O x4, states he is having a little shortness of breath RA sat 95% bb O2 applied via NC at 2 LPM pt states he is feeling a little better. Report called to Zoe DONOHUE for room 408. Vital Signs: 16:48 BP 145 / 68; Pulse 85; Resp 20; Temp 97.5; Pulse Ox 98% on R/A; Weight 94 kg (R); aj1 Height 5 ft. 9 in. (175.26 cm) (R); Pain 4/10; 17:33 BP 147 / 76; Pulse 82; Resp 16; Pulse Ox 100% ; bp 18:00 BP 187 / 80; Pulse 79; Resp 16; Pulse Ox 100% ; bp 18:42 BP 185 / 103; Pulse 79; Resp 16; Pulse Ox 100% ; bp 19:29 BP 177 / 93; Pulse 77; Resp 16; Temp 98; Pulse Ox 97% on R/A; Pain 0/10; ak1 21:30 BP 111 / 67; Pulse 76; Resp 24 S; Temp 98.3(O); Pulse Ox 95% on R/A; bb 16:48 Body Mass Index 30.60 (94.00 kg, 175.26 cm) aj1 ED Course: 16:33 Patient arrived in ED. mr 16:33 Dante Best MD is Private Physician. mr 16:37 Charbel Rollins, JAYDE is Primary Nurse. bp 16:37 Nikolay Newman MD is Attending Physician. kdr 16:41 Triage completed. aj1 16:48 Arm band placed on Patient placed in an exam room. aj1 16:58 Patient has correct armband on for positive identification. Bed in low position. Call bp light in reach. Side rails up X2. Adult w/ patient. 17:15 Inserted saline lock: 20 gauge in right antecubital area, using aseptic technique. bp Blood collected. 17:18 CT completed. Patient moved to CT via stretcher. Patient moved back from CT. cw1 17:19 CT Head Brain wo Cont In Process Unspecified. EDMS 17:55 X-ray completed. Portable x-ray completed in exam room. Patient tolerated procedure sg4 well. 17:56 Chest Single View XRAY In Process Unspecified. EDMS 18:55 Dante Best MD is Hospitalizing Provider. kdr 19:26 No provider procedures requiring assistance completed. Patient admitted, IV remains in ak1 place. Administered Medications: 17:30 Drug: Rocephin - (cefTRIAXone) 1 grams Route: IVPB; Infused Over: 30 mins; Site: right bp antecubital; 19:28 Follow up: IV Status: Completed infusion ak1 17:30 Drug: Xopenex (3) 1.25 mg Route: Inhalation; bp 17:47 Drug: vancoMYCIN 1.5 grams Route: IVPB; Rate: calculated rate; Site: right antecubital; bp 19:28 Follow up: IV Status: Completed infusion ak1 Point of Care Testing: Blood Glucose: 17:15 Blood Glucose: 263 mg/dL; bp Ranges: Outcome: 18:56 Decision to Hospitalize by Provider. kdr 21:30 Admitted to Tele accompanied by tech, via wheelchair, room 408. bb 21:30 Condition: stable 21:30 Instructed on the need for admit. 21:32 Patient left the ED. bb Signatures: Dispatcher [employer] EDMS Rubina Barbosa RN RN aj1 Nikolay Newman MD MD kdr Sepulveda, Dunia mr Susan Thapa RN RN Sara Salazar 1 Brenda Solitario RN RN akCristina Shanks RN RN hb Peltier, Brian, RN RN Aliya Barrera sg4 Corrections: (The following items were deleted from the chart) 21:31 21:30 Instructed on the need for admit, jody vera
--- NOTE | 2018-07-15 18:56 | EDPHYS ---
Physician Documentation [facility] Name: Wade Koehler Age: 58 yrs Sex: Male : 1960 Arrival Date: 07/15/2018 Time: 16:33 Bed 6 Private MD: Dante Best V ED Physician Nikolay Newman HPI: 07/15 18:11 This 58 yrs old Male presents to ER via Wheelchair with complaints of Vision kdr Problem, Fever, Congestion. 18:12 The patient or guardian reports cough, that is intermittent, described as mild, kdr described as moderate, difficulty breathing. 18:13 Onset: The symptoms/episode began/occurred gradually, 2 day(s) ago. Severity of kdr symptoms: At their worst the symptoms were mild, moderate, just prior to arrival, in the emergency department the symptoms are actually worse. Modifying factors: The symptoms are alleviated by nothing, the symptoms are aggravated by exertion. Associated signs and symptoms: Pertinent positives: fever, nausea, Pertinent negatives: chest pain, diarrhea, ear ache, nausea, rhinorrhea, sore throat, vomiting. The patient has not recently seen a physician. Historical: - Allergies: 16:48 NKA; aj1 - Home Meds: 16:48 gabapentin 600 mg Oral tab 1 tab twice a day [Active]; Lantus Sub-Q daily [Active]; aj1 metolazone 5 mg oral tab 2 tabs twice daily [Active]; metoprolol succinate 50 mg Oral Tb24 1 tab once daily [Active]; nifedipine 60 mg Oral TbER 1 tab once daily [Active]; sevelamer HCl oral oral 4 tabs with meals [Active]; bumetanide 2 mg Oral tab 1 tab 2 times per day [Active]; duloxetine 30 mg oral cpDR 1 cap once daily [Active]; hydralazine 100 mg Oral tab 1 tab 3 times per day [Active]; Lyrica 25 mg Oral 4 caps daily [Active]; carvedilol 6.25 mg oral tab 1 tab daily [Active]; losartan 100 mg oral tab 1 tab once daily [Active]; bumetanide 2 mg Oral tab 1 tab 2 times per day [Active]; - PMHx: 16:48 Diabetes - IDDM; Hypertension; PERIPHERAL NEUROPATHY; Dialysis; at home seven days a aj1 week'; ESRD; - Immunization history:: Flu vaccine is up to date. - Social history:: Smoking status: Patient/guardian denies using tobacco. - Ebola Screening: : Patient denies travel to an Ebola-affected area in the 21 days before illness onset. ROS: 18:13 Constitutional: Negative for fever, chills, and weight loss, Eyes: Negative for injury, kdr pain, redness, and discharge, Neck: Negative for injury, pain, and swelling, Cardiovascular: Negative for chest pain, palpitations, and edema, Abdomen/GI: Negative for abdominal pain, nausea, vomiting, diarrhea, and constipation, Back: Negative for injury and pain, : Negative for injury, bleeding, discharge, and swelling, MS/Extremity: Negative for injury and deformity, Skin: Negative for injury, rash, and discoloration, Neuro: Negative for headache, weakness, numbness, tingling, and seizure activity. Psych: Negative for depression, anxiety, suicide ideation, homicidal ideation, and hallucinations, Allergy/Immunology: Negative for hives, rash, and allergies, Endocrine: Negative for neck swelling, polydipsia, polyuria, polyphagia, and marked weight changes, Hematologic/Lymphatic: Negative for swollen nodes, abnormal bleeding, and unusual bruising. 18:13 Respiratory: Positive for cough, with no reported sputum, dyspnea on exertion, shortness of breath, Negative for hemoptysis, orthopnea, pleurisy, wheezing. Exam: 18:19 Constitutional: This is a well developed, well nourished patient who is awake, alert, kdr and in mild distress. Head/Face: Normocephalic, atraumatic. Eyes: Pupils equal round and reactive to light, extra-ocular motions intact. Lids and lashes normal. Conjunctiva and sclera are non-icteric and not injected. Cornea within normal limits. Periorbital areas with no swelling, redness, or edema. Neck: Trachea midline, no thyromegaly or masses palpated, and no cervical lymphadenopathy. Supple, full range of motion without nuchal rigidity, or vertebral point tenderness. No Meningismus. Chest/axilla: Normal chest wall appearance and motion. Nontender with no deformity. No lesions are appreciated. Cardiovascular: Regular rate and rhythm with a normal S1 and S2. No gallops, murmurs, or rubs. Normal PMI, no JVD. No pulse deficits. Respiratory: Lungs have equal breath sounds bilaterally, clear to auscultation and percussion. No rales, rhonchi or wheezes noted. No increased work of breathing, no retractions or nasal flaring. Abdomen/GI: Soft, non-tender, with normal bowel sounds. No distension or tympany. No guarding or rebound. No evidence of tenderness throughout. Back: No spinal tenderness. No costovertebral tenderness. Full range of motion. Skin: Warm, dry with normal turgor. Normal color with no rashes, no lesions, and no evidence of cellulitis. MS/ Extremity: Pulses equal, no cyanosis. Neurovascular intact. Full, normal range of motion. Neuro: Awake and alert, GCS 15, oriented to person, place, time, and situation. Cranial nerves II-XII grossly intact. Motor strength 5/5 in all extremities. Sensory grossly intact. Cerebellar exam normal. Normal gait. Psych: Awake, alert, with orientation to person, place and time. Behavior, mood, and affect are within normal limits. 18:20 Abdomen/GI: Inspection: obese scar(s), are noted in the umbilical area and suprapubic kdr area, Bowel sounds: diminished, in all quadrants, Palpation: soft, nontender, in all quadrants, rebound tenderness, is not appreciated, voluntary guarding, is not appreciated. Vital Signs: 16:48 BP 145 / 68; Pulse 85; Resp 20; Temp 97.5; Pulse Ox 98% on R/A; Weight 94 kg (R); aj1 Height 5 ft. 9 in. (175.26 cm) (R); Pain 4/10; 17:33 BP 147 / 76; Pulse 82; Resp 16; Pulse Ox 100% ; bp 18:00 BP 187 / 80; Pulse 79; Resp 16; Pulse Ox 100% ; bp 18:42 BP 185 / 103; Pulse 79; Resp 16; Pulse Ox 100% ; bp 19:29 BP 177 / 93; Pulse 77; Resp 16; Temp 98; Pulse Ox 97% on R/A; Pain 0/10; ak1 21:30 BP 111 / 67; Pulse 76; Resp 24 S; Temp 98.3(O); Pulse Ox 95% on R/A; bb 16:48 Body Mass Index 30.60 (94.00 kg, 175.26 cm) aj1 MDM: 18:20 Data reviewed: vital signs, nurses notes. kdr 18:55 Patient medically screened. kdr 19:05 ED course: I was unable to reach Dr. Best after several attempts, I contacted Dr. terry Arguello and gave report to him. He will d/w Dr. Whitehead and manage patient until such time as they are able to contact Dr. Best. The patient was admitted to Dr. Best. 07/15 17:03 Order name: Basic Metabolic Panel; Complete Time: 18:30 kdr 07/15 17:03 Order name: Blood Culture Adult (2) kdr 07/15 17:03 Order name: CBC with Diff; Complete Time: 18:49 kdr 07/15 17:03 Order name: Ckmb; Complete Time: 18:30 kdr 07/15 17:03 Order name: CPK; Complete Time: 18:30 kdr 07/15 17:03 Order name: Lactate; Complete Time: 18:19 kdr 07/15 17:03 Order name: LFT's; Complete Time: 18:30 kdr 07/15 17:03 Order name: Lipase; Complete Time: 18:30 kdr 07/15 17:03 Order name: Procalcitonin; Complete Time: 18:49 kdr 07/15 17:03 Order name: Protime (+inr); Complete Time: 18:49 kdr 07/15 17:03 Order name: Ptt, Activated; Complete Time: 18:49 kdr 07/15 17:03 Order name: Troponin (emerg Dept Use Only); Complete Time: 18:30 kdr 07/15 17:03 Order name: Urine Microscopic Only kdr 07/15 20:59 Order name: Flu jr8 07/15 17:03 Order name: Chest Single View XRAY kdr 07/15 17:03 Order name: Accucheck; Complete Time: 17:15 kdr 07/15 17:03 Order name: Cardiac monitoring; Complete Time: 17:15 kdr 07/15 17:03 Order name: EKG - Nurse/Tech; Complete Time: 18:13 kdr 07/15 17:03 Order name: IV Saline Lock - Large Bore; Complete Time: 17:15 kdr 07/15 17:03 Order name: Labs collected and sent; Complete Time: 17:15 kdr 07/15 17:03 Order name: O2 Per Protocol; Complete Time: 17:15 kdr 07/15 17:03 Order name: O2 Sat Monitoring; Complete Time: 17:16 kdr 07/15 17:03 Order name: CT Head Brain wo Cont; Complete Time: 18:19 kdr Administered Medications: 17:30 Drug: Rocephin - (cefTRIAXone) 1 grams Route: IVPB; Infused Over: 30 mins; Site: right bp antecubital; 19:28 Follow up: IV Status: Completed infusion ak1 17:30 Drug: Xopenex (3) 1.25 mg Route: Inhalation; bp 17:47 Drug: vancoMYCIN 1.5 grams Route: IVPB; Rate: calculated rate; Site: right antecubital; bp 19:28 Follow up: IV Status: Completed infusion ak1 Point of Care Testing: Blood Glucose: 17:15 Blood Glucose: 263 mg/dL; bp Ranges: Critical Glucose Levels:Adult <50 mg/dl or >400 mg/dl <40 mg/dl or >180 mg/dl Disposition: 07/15/18 18:56 Hospitalization ordered by Dante Best for Inpatient Admission. Preliminary diagnosis are Shortness of breath, Acute upper respiratory infection, unspecified. - Bed requested for Telemetry/MedSurg (Inpatient). - Status is Inpatient Admission. bb - Condition is Fair. - Problem is new. - Symptoms have improved. UTI on Admission? No Signatures: Dispatcher [employer] EDMS Rubina Barbosa RN RN ajClau Salinas RN RN kl Rittger, Kevin, MD MD [facility] Susan Thapa RN RN bb Peltier, Brian, RN RN bp Krenek, Amber RN ak1 Corrections: (The following items were deleted from the chart) 19:07 18:20 Abdomen/GI: Inspection: obese scar(s), are noted in the umbilical area and kdr suprapubic area, Bowel sounds: diminished, in all quadrants, Palpation: soft, mild abdominal tenderness, rebound tenderness, voluntary guarding, kdr 21:11 18:56 Hospitalization Ordered by Dante Best MD for Inpatient Admission. Preliminary diagnosis is Shortness of breath; Acute upper respiratory infection, unspecified. Bed requested for Telemetry/MedSurg (Inpatient). Status is Inpatient Admission. Condition is Fair. Problem is new. Symptoms have improved. UTI on Admission? No. kdr 21:32 21:11 07/15/2018 18:56 Hospitalization Ordered by Dante Best MD for Inpatient bb Admission. Preliminary diagnosis is Shortness of breath; Acute upper respiratory infection, unspecified. Bed requested for Telemetry/MedSurg (Inpatient). Status is Inpatient Admission. Condition is Fair. Problem is new. Symptoms have improved. UTI on Admission? No. kl
--- NOTE | 2018-07-15 20:20 | RAD REPORT ---
EXAM DESCRIPTION: RAD - Chest Single View - 07/15/2018 5:56 pm CLINICAL HISTORY: Cough, congestion, fever, shortness of breath COMPARISON: January 25 TECHNIQUE: AP portable chest image was obtained 1747 hours . FINDINGS: Lung volumes are low. Costophrenic angle blunting is present. Heart size is upper normal. Vasculature is prominent and there is prominence of the central lung markings. No pneumothorax. No ac barrow bony abnormality seen. No acute aortic findings suspected. IMPRESSION: Mild CHF/volume overload pattern.
[2018-07-15] MEDS ORDERED: ACETAMINOPHEN 500 MG TAB PO PRN (20:47)
[2018-07-15] MEDS ORDERED: TRAMADOL HCL 50 MG TAB PO PRN (20:47)
[2018-07-15] MEDS ORDERED: SODIUM CHLORIDE 0.9% 10ML INJ IV PRN (20:49)
[2018-07-15] MEDS ORDERED: GABAPENTIN 100 MG CAP PO SCH (21:00)
--- NOTE | 2018-07-15 21:03 | P.HP ---
Certification for Inpatient Patient admitted to: Inpatient With expected LOS: >2 Midnights Practitioner: I am a practitioner with admitting privileges, knowledge of patient current condition, hospital course, and medical plan of care. Services: Services provided to patient in accordance with Admission requirements found in Title 42 Section 412.3 of the Code of Federal Regulations Patient History Date of Service: 07/15/18 Reason for admission: HIGH FEVER, COUGH History of Present Illness: FOR TWO DAYS OF FEVER, COUGH. HE IS WEAK, DYSPNEA. MR. LYLES IS A PD PATIENT OF DR. KELLY. HE IS DIABETIC BUT HAS NOT BEEN TO OFFICE EVERY 3 MTHS LIKE HE NEEDS TO. Allergies No Known Allergies Allergy (Verified 12/06/17 14:32) Home Medications: Insulin Glargine Human [Lantus*] 35 units SQ DAILY 05/15/12 Gabapentin [Neurontin] 600 mg PO TID 03/09/16 Tramadol HCl [Ultram] 50 mg PO BID PRN 12/25/16 Valsartan 320 mg PO [id number] 12/25/16 Furosemide [Lasix*] 40 mg PO DAILY 12/06/17 Albuterol Sulfate [Proair Hfa] 2 puff IH Q6H PRN 12/12/17 Codeine/APAP [Tylenol W/Codeine #3 tab] 1 tab PO Q4H PRN 12/12/17 Duloxetine [Cymbalta *] 30 mg PO DAILY 12/12/17 Hydralazine HCl [Apresoline] 100 mg PO TID 12/12/17 Lactulose 10 gm PO BEDTIME 12/12/17 Lisinopril [Prinivil*] 20 mg PO DAILY 12/12/17 Mirtazapine 7.5 mg PO BEDTIME 12/12/17 Metoprolol Succinate [Toprol Xl*] 50 mg PO DAILY tab 12/14/17 Nifedipine Xl [Procardia XL*] 60 mg PO DAILY #30 tab 12/14/17 Bumetanide [Bumex] 1 mg PO BID 01/25/18 - Past Medical/Surgical History Diabetic: Yes -: HTN -: IDDM -: CKD -: CAD -: High Cholesterol -: Peripheral Neuropathy -: appendectomy -: cholecystectomy -: amputation right 2nd toe - Family History Mother -: Heart disease, Diabetes, Kidney disease Notes: HD Father -: Heart disease, Hypertension, Stroke - Social History Alcohol use: Yes CD- Drugs: No Caffeine use: No Review of Systems 10-point ROS is otherwise unremarkable General: Weakness, Malaise Respiratory: Cough, Shortness of Breath, SOB with Excertion Physical Examination - Physical Exam General: Alert, Moderate distress HEENT: Atraumatic, PERRLA, Mucous membr. moist/pink, EOMI, Sclerae nonicteric Neck: Supple, 2+ carotid pulse no bruit, No LAD, Without JVD or thyroid abnormality Respiratory: Diminished Cardiovascular: Regular rate/rhythm, Normal S1 S2 Gastrointestinal: Normal bowel sounds, No tenderness Musculoskeletal: No tenderness Integumentary: No rashes Neurological: Normal gait, Normal speech, Normal strength at 5/5 x4 extr, Normal tone, Normal affect Lymphatics: No axilla or inguinal lymphadenopathy - Studies Laboratory Data (last 24 hrs) 07/15/18 17:10: PT 13.7 H, INR 1.16, APTT 54.4 H 07/15/18 17:10: WBC 6.1, Hgb 8.2 L, Hct 24.4 L, Plt Count 208 07/15/18 17:10: Sodium 134 L, Potassium 5.1, BUN 98 H, Creatinine 12.40 H*, Glucose 260 H, Total Bilirubin 0.7, AST 67 H, ALT 31, Alkaline Phosphatase 254 H , Lipase 113 Assessment and Plan - Problems (Diagnosis) (1) Fever and chills Current Visit: Yes Status: Acute Plan: IV ZOSYN NEBS SPUTUM CS PROGNOSIS GUARDED (2) CKD, patient preferred treatment modality peritoneal dialysis Current Visit: Yes Status: Chronic Plan: DR KELLY TO MANAGE. (3) Pneumonia Onset Date: 08/15/17 Current Visit: No Status: Resolved Plan: RULE OUT FLU. CHECK FLU TEST. (4) Anemia Current Visit: No Status: Chronic Plan: WORSE THAN BEFORE ANEMIA OF CHR DISEASE. Qualifiers: Chronic kidney disease stage: on chronic dialysis - Advance Directives Does patient have a Living Will: No Does patient have a Durable POA for Healthcare: No
[2018-07-15] MEDS ORDERED: D50W 25 GM/50 ML SYRINGE IV PRN (22:33)
[2018-07-15] MEDS ORDERED: GLUCAGON 1 MG/VIAL IM PRN (22:33)
[2018-07-15] MEDS: LOSARTAN POTASSIUM 50 MG TABLET PO SCH (22:57)
[2018-07-15] MEDS: INSULIN -REGULAR HUMAN 50 UNIT/0.5 ML ML SQ SCH (23:02)
[2018-07-15 23:27] LABS: CKMB Creatine Kinase MB 3.6 ng/mL (0.3-3.6); Troponin I 0.22 ng/mL (0.0-0.045)
[2018-07-15] MEDS ORDERED: PIPERACIL/TAZO 2.25 GM VIAL IV ONE ×2 (23:39→23:51)
[2018-07-15] MEDS ORDERED: NA CHLORIDE 0.9% 100 ML IV ONE (23:45)
[2018-07-16] MEDS ORDERED: PIPERACILLIN IV SCH
[2018-07-16] MEDS ORDERED: TAZOBACTAM IV SCH
[2018-07-16] MEDS ORDERED: SODIUM CHLORIDE IV SCH
[2018-07-16] MEDS: ZOLPIDEM TARTRATE 5 MG TABLET PO PRN ×2 (00:06→21:35)
[2018-07-16] MEDS: ALBUTEROL 2.5 MG/3 ML NEB SOL NEB SCH ×4 (01:52→20:20)
[2018-07-16] MEDS ORDERED: NA CHLORIDE 0.9% 100 ML IV ONE (05:13)
[2018-07-16] MEDS: PIPER/TAZO/NS 2.25gm 2.25 GM/50 ML BAG IV SCH ×4 (05:38→18:32)
[2018-07-16 05:58] LABS: Absolute Lymphocytes (CBC) 0.9 K/uL (0.7-4.9); Absolute Monocytes 0.5 K/uL (0.1-1.3); Basophils % 1.5 % (0-1.3); Eosinophils % 4.7 % (0-4.4); Hematocrit 21.5 % (39.6-49.0); Lymphocytes % 19.5 % (15.3-44.8); MCH 28.5 pg (27.0-35.0); MCV 84.2 fL (80-100); MPV 7.5 fL (7.6-11.3); Monocytes % 11.2 % (3.3-12.3); RBC Red Blood Cell Count 2.55 M/uL (4.33-5.43)
[2018-07-16 06:24] LABS: Potassium 4.6 mmol/L (3.5-5.1); Troponin I 0.18 ng/mL (0.0-0.045)
[2018-07-16] MEDS ORDERED: LACTULOSE 20 GM/30 ML UCUP PO PRN (06:28)
[2018-07-16] MEDS ORDERED: TRAMADOL HCL 50 MG TAB PO PRN ×2 (07:00→13:18)
[2018-07-16] MEDS ORDERED: INFLUENZA VACCINE (for 3y+) 0.5 ML DOSE IMVAC ONE (08:00)
[2018-07-16] MEDS: INSULIN -REGULAR HUMAN 50 UNIT/0.5 ML ML SQ SCH ×4 (08:37→21:00)
[2018-07-16] MEDS: PANTOPRAZOLE 40 MG INJ IVP SCH (08:37)
[2018-07-16] MEDS: NIFEDIPINE XL 60 MG TABLET PO SCH (08:38)
[2018-07-16] MEDS: INSULIN GLARGINE 100 UNITS/ML SQ SCH (08:38)
[2018-07-16] MEDS: LOSARTAN POTASSIUM 50 MG TABLET PO SCH (08:39)
[2018-07-16] MEDS: CARVEDILOL 6.25 MG TAB PO SCH ×2 (08:39→17:00)
[2018-07-16] MEDS ORDERED: CARVEDILOL 6.25 MG TAB PO SCH (09:00)
[2018-07-16] MEDS ORDERED: HOME MED 1 EA UNK (Losartan Potassium [Losartan Potassium] 100 MG) PO SCH (09:00)
[2018-07-16] MEDS ORDERED: GABAPENTIN 100 MG CAP PO SCH (09:00)
[2018-07-16] MEDS ORDERED: NIFEDIPINE XL 60 MG TABLET PO SCH (09:00)
[2018-07-16] MEDS ORDERED: METOLAZONE 5 MG TABLET PO SCH (09:00)
[2018-07-16] MEDS ORDERED: HYDRALAZINE HCL 25 MG TABLET PO SCH ×3 (09:00)
[2018-07-16] MEDS ORDERED: GABAPENTIN 300 MG CAP PO SCH (09:00)
--- NOTE | 2018-07-16 09:04 | EKG ---
Test Date: 2018-07-15 Test Time: 17:57:32 Welder Apprentice Arc: SERGIO MEASUREMENT RESULTS: Intervals: Rate: 79 FL: 154 QRSD: 84 QT: 436 QTc: 499 [place]: P: 66 FL: 154 QRS: 78 T: 75 INTERPRETIVE STATEMENTS: Sinus rhythm with premature supraventricular complexes Possible Left atrial enlargement Prolonged QT Abnormal ECG Compared to ECG 01/25/2018 17:10:57 Atrial premature complex(es) now present Prolonged QT interval now present Right-axis deviation no longer present Electronically Signed On 07-16-18 09:03:17 CDT by Bong Coleman
--- NOTE | 2018-07-16 10:23 | ECHO ---
HEIGHT: 5 ft 9 in WEIGHT: 212 lb 12.8 oz DATE OF STUDY: 07/16/[address]: Dante Best MD 2-DIMENSIONAL: YES M.MODE: YES DOPPLER: YES COLOR FLOW: YES TDS: NO PORTABLE: NO DEFINITY: NO BUBBLE STUDY: NO DIAGNOSIS: EDEMA, DYSPNEA CARDIAC HISTORY: CATHERIZATION: NO SURGERY: NO PROSTHETIC VALVE: NO PACEMAKER: NO MEASUREMENTS (cm) DIASTOLIC (NORMALS) SYSTOLIC (NORMALS) IVSd 1.2 (0.6-1.2) LA Diam 4.5 (1.9-4.0) LVEF 56% LVIDd 4.8 (3.5-5.7) LVIDs 3.4 (2.0-3.5) %FS 30% LVPWd 1.4 (0.6-1.2) Ao Diam 3.2 (2.0-3.7) 2 DIMENSIONAL ASSESSMENT: RIGHT ATRIUM: NORMAL LEFT ATRIUM: DILATED RIGHT VENTRICLE: NORMAL LEFT VENTRICLE: LEFT VENTRICULAR HYPERTROPHY TRICUSPID VALVE: NORMAL MITRAL VALVE: NORMAL PULMONIC VALVE: NORMAL AORTIC VALVE: NORMAL PERICARDIAL EFFUSION: NONE AORTIC ROOT: NORMAL LEFT VENTRICULAR WALL MOTION: NORMAL. DOPPLER/COLOR FLOW: MILD MITRAL AND TRICUSPID REGURGITATION. MILD PULMONARY HYPERTENSION. ESTIMATED RIGHT VENTRICULAR SYSTOLIC PRESSURE 45mmHg. COMMENTS: NORMAL LEFT VENTRICULAR EJECTION FRACTION. DILATED LEFT ATRIUM. LEFT VENTRICULAR HYPERTROPHY. MILD MITRAL AND TRICUSPID REGURGITATION. MILD PULMONARY HYPERTENSION. TECHNOLOGIST: JOSE R RIVERA
--- NOTE | 2018-07-16 11:18 | RAD REPORT ---
EXAM DESCRIPTION: CT - Chest For Pe Angio - 07/16/2018 11:09 am CLINICAL HISTORY: Chest pain COMPARISON: None. TECHNIQUE: Dynamically enhanced axial 3 mm thick images of the chest were obtained during administra tion of <100> mL Isovue 370 IV contrast. Coronal and oblique reconstruction images were generated and reviewed. Exam utilizes a protocol for optimal evaluation of pulmonary arterial tree. Maximum intensity projections 3D imaging was utilized All CT scans are performed using dose optimization technique as appropriate and may include automated exposure control or mA/KV adjustment according to patient size. FINDINGS: A pulmonary embolus is not seen. A thoracic aortic aneurysm is not noted. A small loculated right pleural effusion is present. Minimal left pleural effusion is seen. A pericar dial effusion is not seen. Mild bibasilar atelectasis is present. Mild mediastinal lymphadenopathy is without significant change IMPRESSION: Negative for a pulmonary embolism.
--- NOTE | 2018-07-16 12:40 | P.PN ---
Subjective Date of Service: 07/16/18 Chief Complaint: HIGH FEVER, COUGH Subjective: No new changes STILL GETS SPASMODIC COUGH. DYSPNEA AND FEELS POORLY. Review of Systems 10-point ROS is otherwise unremarkable General: Weakness, Malaise Respiratory: Cough, Shortness of Breath Physical Examination - Vital Signs Temperature: 98.5 F Blood Pressure: 184/88 Pulse: 66 Respirations: 16 Pulse Ox (%): 98 - Physical Exam General: Alert, Moderate distress HEENT: Atraumatic, PERRLA, EOMI Neck: Supple, JVD not distended Respiratory: Clear to auscultation bilaterally, Normal air movement Cardiovascular: Regular rate/rhythm, Normal S1 S2 Gastrointestinal: Normal bowel sounds, No tenderness Musculoskeletal: No tenderness Integumentary: No rashes Neurological: Normal speech, Normal tone, Normal affect Lymphatics: No axilla or inguinal lymphadenopathy - Studies Laboratory Data (last 24 hrs) 07/15/18 17:10: PT 13.7 H, INR 1.16, APTT 54.4 H 07/15/18 17:10: WBC 6.1, Hgb 8.2 L, Hct 24.4 L, Plt Count 208 07/15/18 17:10: Sodium 134 L, Potassium 5.1, BUN 98 H, Creatinine 12.40 H*, Glucose 260 H, Total Bilirubin 0.7, AST 67 H, ALT 31, Alkaline Phosphatase 254 H , Lipase 113 Medications List Reviewed: Yes Assessment And Plan - Current Problems (Diagnosis) (1) Fever and chills Current Visit: Yes Status: Acute Plan: IV ZOSYN NEBS SPUTUM CS PROGNOSIS GUARDED CT SCAN NEGATIVE BRONCHITIS LIKELY NO PNEUMONIA. HE LOOKS AND FEELS LOT WORSE THAN FINDINGS. (2) CKD, patient preferred treatment modality peritoneal dialysis Current Visit: Yes Status: Chronic Plan: DR KELLY TO MANAGE. (3) Pneumonia Onset Date: 08/15/17 Current Visit: No Status: Resolved Plan: RULE OUT FLU. CHECK FLU TEST. (4) Anemia Current Visit: No Status: Chronic Plan: WORSE THAN BEFORE ANEMIA OF CHR DISEASE. Qualifiers: Chronic kidney disease stage: on chronic dialysis
[2018-07-16] MEDS: HYDRALAZINE HCL 25 MG TABLET PO SCH ×2 (14:00→20:45)
[2018-07-16] MEDS ORDERED: NA CHLORIDE 0.9% 250 ML ONE ×2 (14:46→16:01)
[2018-07-16] MEDS ORDERED: NA CHLORIDE 0.9% 500 ML IV PRN (15:46)
[2018-07-16] MEDS ORDERED: DIPHENHYDRAMINE 50 MG/ML VIAL IV ONE (15:46)
[2018-07-16] MEDS ORDERED: METHYLPREDNISOLONE 40 MG INJ IV ONE (15:53)
[2018-07-16] MEDS ORDERED: METHYLPREDNISOLONE 125 MG INJ ONE (15:57)
[2018-07-16] MEDS ORDERED: DIPHENHYDRAMINE 25 MG TAB/CAP PO ONE (15:59)
[2018-07-16 20:43] LABS: Urine Appearance CLOUDY; Urine Bilirubin NEGATIVE (NEG); Urine Blood 2+ (NEG); Urine Color YELLOW; Urine Glucose 2+ (NEG); Urine Protein 3+ (NEG); Urine pH 6.5 (5.0-7.0)
[2018-07-16 22:02] LABS: Urine Microscopic Reflex ORDER UMIC
[2018-07-16 22:03] LABS: Urine Bacteria <20 /HPF (NONE SEEN); Urine Culture Reflex Order REFLEXED; Urine RBC 20-50 /HPF (NONE SEEN)
[2018-07-16 22:34] VITALS: BMI 31.3
--- NOTE | 2018-07-17 01:58 | CON ---
Chief Complaint: End-stage renal disease, on PD dialysis. History Of Present Illness: The patient has multiple medical problems including history of diabetes mellitus, diabetic kidney disease, hypertension, history of peripheral neuropathy. The patient prese nted to the hospital because of fever and cough. He was complaining of dyspnea. Review of Systems: Constitutional: Denies chills. Has subjective fever. Denies PND or orthopnea. Eyes: Denies vision changes. Ears, Nose, Mouth, and Throat: Denies sore throat or earache. Respiratory: Complains of cough. Denies hemoptysis. Gastrointestinal: Denies nausea or vomiting. Denies abdominal pain, melena, or hematemesis. Genitourinary: Denies dysuria or hematuria. Musculoskeletal: Complaining of some lower extremity pain and paresthesia. Denies muscle aches or j oint swelling. All other systems are reviewed and all are negative. Past Medical History: 1.Hypertension. 2.Insulin-dependent diabetes mellitus. 3.End-stage renal disease, on dialysis. 4.History of hemodialysis recently, peritoneal dialysis. 5.Hypercholesterolemia. 6.Peripheral neuropathy. 7.Appendectomy. 8.Cholecystectomy. 9.Amputation of the right second toe. Family History: Mother has heart disease, diabetes, and kidney disease. Father has heart disease, h ypertension, and stroke. Social History: Negative for tobacco, alcohol, or illicit drugs. Physical Examination: General: The patient is awake, alert, follows commands. Eyes: Anicteric sclerae. EOMI. Ears, Nose, Mouth, and Throat: Oral mucosa moist. No pallor. Neck: Supple. No JVD. No bruits. Lungs: Clear to auscultation bilaterally. No rhonchi. No wheezing. No crackles. Heart: S1, S2. No pericardial friction rub. Abdomen: Soft, benign, nontender. Extremities: Slight edema in both legs. Neurological: Moving extremities. Cranial nerves intact. Psychiatric: Alert and oriented x3. Normal affect. Laboratory Data: Sodium 134, potassium 5.1, creatinine 12.4, BUN 98, glucose 250, total bilirubin 0. 7, AST 67, ALT 31, lipase 113. Impression And Plan: 1.Peritoneal dialysis for end-stage renal disease. Resume peritoneal dialysis. 2.Mild fluid overload. Continue low-sodium diet and p.o. fluid restriction. Monitor fluid balance. Adjust ultrafiltration with PD dialysis accordingly. 3.Fever and chills. The patient is undergoing workup for bacteremia. Continue broad-spectrum antib iotics. Continue Zosyn with renally-adjusted dose. 4.Pneumonia. The patient will continue Zosyn. 5.Anemia and chronic kidney disease. Monitor hemoglobin level. Adjust KEREN. 6.Renal osteodystrophy. Continue renal diet and binders. SUKHWINDER/QUINTIN Voice ID: [id number] Report ID: [id number]
[2018-07-17] MEDS: ALBUTEROL 2.5 MG/3 ML NEB SOL NEB SCH ×3 (02:40→13:22)
[2018-07-17] MEDS: PIPER/TAZO/NS 2.25gm 2.25 GM/50 ML BAG IV SCH ×3 (05:05→12:39)
[2018-07-17 06:06] LABS: Absolute Lymphocytes (CBC) 0.3 K/uL (0.7-4.9); Absolute Monocytes 0.3 K/uL (0.1-1.3); Absolute Neutrophil 5.5 K/uL (1.8-8.0); Basophils % 0.5 % (0-1.3); Hematocrit 26.1 % (39.6-49.0); Lymphocytes % 5.2 % (15.3-44.8); MCV 85.4 fL (80-100); MPV 8.1 fL (7.6-11.3); Monocytes % 4.5 % (3.3-12.3); RBC Red Blood Cell Count 3.05 M/uL (4.33-5.43)
[2018-07-17 06:20] LABS: Potassium 4.5 mmol/L (3.5-5.1)
[2018-07-17] MEDS: PANTOPRAZOLE 40 MG INJ IVP SCH (08:32)
[2018-07-17] MEDS: INSULIN -REGULAR HUMAN 50 UNIT/0.5 ML ML SQ SCH ×2 (08:33→12:38)
[2018-07-17] MEDS: INSULIN GLARGINE 100 UNITS/ML SQ SCH (08:33)
[2018-07-17] MEDS: CARVEDILOL 6.25 MG TAB PO SCH (08:34)
[2018-07-17] MEDS: NIFEDIPINE XL 60 MG TABLET PO SCH (08:34)
[2018-07-17] MEDS: HYDRALAZINE HCL 25 MG TABLET PO SCH ×2 (08:35→13:35)
[2018-07-17] MEDS: LOSARTAN POTASSIUM 50 MG TABLET PO SCH (08:35)
[2018-07-17] MEDS ORDERED: GABAPENTIN 300 MG CAP PO SCH (09:00)
[2018-07-17] MEDS ORDERED: EPOETIN ALFA 10,000 UNIT/ML VIAL SQ ONE (09:00)
[2018-07-17] MEDS ORDERED: EPOETIN ALFA 10,000 UNIT/ML VIAL SQ SCH (09:00)
[2018-07-17 09:09] VITALS: O2SAT 96
[2018-07-17 09:57] LABS: Blood Morphology Comment NOT SEEN (NOT SEEN); Platelet Estimate ADEQ; Urine White Blood Cell Casts OK
[2018-07-17] MEDS ORDERED: INSULIN -REGULAR HUMAN 50 UNIT/0.5 ML ML SQ ONE (10:00)
[2018-07-17 10:27] VITALS: TEMP 98.2
[2018-07-17] MEDS ORDERED: BUMETANIDE 1 MG/4 ML VIAL IV ONE (12:50)
[2018-07-17 13:25] VITALS: BP 177/89
--- NOTE | 2018-07-17 17:25 | P.DS ---
Admission Date: 07/15/18 Discharge Date: 07/17/18 Disposition: ROUTINE DISCHARGE Discharge Condition: FAIR Reason for Admission: HIGH FEVER, COUGH - Problems (1) Fever and chills Onset Date: 07/17/18 Status: Acute (2) CKD, patient preferred treatment modality peritoneal dialysis Onset Date: 07/17/18 Status: Chronic (3) Anemia Status: Chronic Qualifiers: Chronic kidney disease stage: on chronic dialysis Brief History of Present Illness: FOR TWO DAYS OF FEVER, COUGH. HE IS WEAK, DYSPNEA. MR. LYLES IS A PD PATIENT OF DR. KELLY. HE IS DIABETIC BUT HAS NOT BEEN TO OFFICE EVERY 3 MTHS LIKE HE NEEDS TO. MR. LYLES CAME IN VERY SICK WITH FEVER, CHILLS, WEAKNESS BUT DID NOT LOTT OUT TO HAVE PNEUMONIA, SEPSIS. HE HAD VIRAL ILLNESS. HE HAD LOW HG. WE GAVE HIM BLOOD BUT WITH 33 ML , HIS BP SUDDENLY DROPPED. I GAVE HIM STEROIDS IV AND BENADRYL PO, HE IMPROVED. HIS HG AT DC WAS 8.8 GM. HE IS LOT BETTER CLINICALLY. HE IS STABLE TO GO HOME. I ADVISED HIM TO GET DISABILITY BUT HE HAS TO DO IT AFTER HD PORT IS IN PLACE. HE HAS SEVERE NEUROPATHY AND CAN'T STAND MORE THAN 10 MINUTES TO WORK. Vital Signs/Physical Exam: Temp Pulse Resp BP Pulse Ox 98.2 F 102 H 16 177/89 H 92 07/17/18 12:00 07/17/18 13:30 07/17/18 12:00 07/17/18 13:30 07/17/18 12:00 Laboratory Data at Discharge: WBC 6.2 K/uL (4.3-10.9) D 07/17/18 05:22 Hgb 8.8 g/dL (13.6-17.9) L 07/17/18 05:22 Hct 26.1 % (39.6-49.0) L D 07/17/18 05:22 Plt Count 277 K/uL (152-406) D 07/17/18 05:22 PT 13.7 SECONDS (9.5-12.5) H 07/15/18 17:10 INR 1.16 07/15/18 17:10 APTT 54.4 SECONDS (24.3-36.9) H 07/15/18 17:10 Sodium 129 mmol/L (136-145) L 07/17/18 05:22 Potassium 4.5 mmol/L (3.5-5.1) 07/17/18 05:22 BUN 99 mg/dL (7-18) H 07/17/18 05:22 Creatinine 12.00 mg/dL (0.55-1.3) H* 07/17/18 05:22 Glucose 566 mg/dL (74-106) H* 07/17/18 07:29 Magnesium 2.0 mg/dL (1.8-2.4) 07/17/18 05:22 Total Bilirubin 0.7 mg/dL (0.2-1.0) 07/15/18 17:10 AST 67 U/L (15-37) H 07/15/18 17:10 ALT 31 U/L (12-78) 07/15/18 17:10 Alkaline Phosphatase 254 U/L (45-117) H 07/15/18 17:10 Troponin I 0.18 ng/mL (0.0-0.045) H 07/16/18 05:36 Lipase 113 U/L (73-393) 07/15/18 17:10 Home Medications: Hydralazine HCl [Apresoline] 100 mg PO TID 12/12/17 Nifedipine Xl [Procardia XL*] 60 mg PO DAILY #30 tab 12/14/17 Bumetanide [Bumex] 2 mg PO BID 01/25/18 Carvedilol 6.25 mg PO BID 07/16/18 Gabapentin 300 mg PO DAILY 07/16/18 Insulin Glargine Human [Lantus*] 40 unit SQ DAILY 07/16/18 Lactulose 10 gm PO DAILYPRN PRN 07/16/18 Losartan Potassium 100 mg PO DAILY 07/16/18 metOLazone [Metolazone] 5 mg PO BID 07/16/18 Amox/Clavulanate [Augmentin 875-125 Tab] 1 each PO BID #14 tab 07/17/18 New Medications: Amox/Clavulanate [Augmentin 875-125 Tab] 1 each PO BID #14 tab Patient Discharge Instructions: I HAVE SENT EXTRA INSULIN FOR HIGH NUMBERS. I WILL SEE YOU ON MONDAY AT OFFICE. Diet: Renal Followup: Ashlee Crowder MD [COURTESY - CAN ADMIT] - Dante Best MD [Primary Care Provider] -
--- NOTE | 2018-07-18 04:07 | PN ---
Date of Progress Note: 07/17/2018 Subjective: The patient was admitted with COPD exacerbation, symptomatic anemia status post transfus ion, has reaction to the blood. Physical Examination: Vital Signs: When I saw the patient, blood pressure 177/89, pulse of 100. Chest: Crackles on the base. Heart: S1, S2 regular. Abdomen: Soft, nontender. Extremity: Plus edema. Laboratory Data: H and H 8.8/26.1. Sodium 129, potassium 4.5, bicarb 19, BUN 99, creatinine 12, blo od sugar still 600, calcium 7.3, magnesium 2. Current Medications: Include, 1.Carvedilol. 2.Bumex. 3.Epogen. 4.Lactulose. 5.Losartan. 6.Nifedipine. 7.Zosyn. Assessment And Plan: 1.End-stage renal disease, slightly on the wet side. We will continue PD. We will change the presc ription to use Extraneal. 2.Hypertension, controlled, continue utilize blood pressure for more diuresis and ultrafiltration. 3.Anemia of chronic kidney disease reaction to the transfusion. We will continue Epogen. 4.Hyponatremia, corrected pseudo secondary to hyperglycemia. Corrected has been around 134. 5.Secondary hyperparathyroidism. Continue vitamin D. 6.Diabetes as by primary. 7.Chronic obstructive pulmonary disease exacerbation as by primary. YANIRA Voice ID: [id number] Report ID: [id number]
== END 2018-07-17 15:26 | disposition home or self-care (01) | DRG 865 ==
LOC: ER 16:28 → ERHOLD 18:56 → 4TH 21:27
PROVIDERS: ADMIT Internal Medicine; ATTEND Internal Medicine
PROC: 30233N1 Transfusion of Nonautologous Red Blood Cells into Peripheral Vein, Percutaneous Approach (ICD-10-PCS; principal; 2018-07-16)
DX: B34.9 Viral infection, unspecified (principal); N18.6 End stage renal disease; I12.0 Hypertensive chronic kidney disease with stage 5 chronic kidney disease or end stage renal disease; E78.00 Pure hypercholesterolemia, unspecified; E11.22 Type 2 diabetes mellitus with diabetic chronic kidney disease; Z99.2 Dependence on renal dialysis; Z79.4 Long term (current) use of insulin; E11.42 Type 2 diabetes mellitus with diabetic polyneuropathy; D63.1 Anemia in chronic kidney disease; N25.0 Renal osteodystrophy
CPT/HCPCS: 36415; 70450; 71045; 71275; 80048; 80076; 81001; 81003; 81015; 82550; 82553; 82784; 82947; 82962; 83605; 83690; 83735; 84145; 84484; 85025; 85610; 85730; 86850; 86900; 86901; 87040; 87086; 87088; 87205; 87804; 93005; 93306; 94640; 96365; 97163; 99285; C9113; J0696; J2543; J2930; J3370; P9016; Q4081; Q9967

== ENCOUNTER 2018-07-21 14:37 | Emergency (ER) | payer BC, OTHER ==
--- OUTSIDE RECORDS SUMMARY | 2018-07-21 14:40 | XMS REPORT | Clinical Summary ---
:1960 Author Organization [facility] Address [address] [place] [address] Care Team Providers Name Role Phone Dante [...] Ruthie disease) 05/31/2018 Hospital Encounter Transplant Rolf Thayer MD 05/31/2018 Hospital Encounter Transplant Beatriz Xie [...] 11/03/2017 Anesthesia Event General Surgery Shirley Prajapati, FOUNDATION RELATIONS DIRECTOR 11/02/2017 Pre-Admit Testing Pre-Admission Abel, Preop testing Appointment Testing Julio Lilly MD (Primary Dx) 11/02/2017 Office Visit General Surgery Abel, End-stage renal Julio Lilly MD disease (Primary Dx) after 07/20/2017 Family History Medical History Relation Name Comments [...] INFLUENZA VACCINE 04/25/2018 Implants Implanted Type Area Annealing Torch Operator Device Expiration Model / Identifier Date Serial / Lot Manoj Stylet Stylet / N/A: N/A MEDIONICS 07/24/2021 [id number] / Implanted: Qty: 1 on 11/07/2017 by Julio Roman MD [employer], [id number] / [id number] Catheter 19.5cm Peritoneal Dialysis Extended - [id number] Surgical N/A: N/A 08/24/2022 SNPS [id number] / Implanted: 11/07/2017 (Quantity not on file) Implants; / Expanders; [id number] Extenders; Surgical Wires Procedures Procedure Name Priority [...] are in SPECTRAL COLOR DOPPLER the results (61526) section. ECG 12-LEAD Routine 05/31/2018 1:42 ESRD [...] Routine 11/07/2017 9:20 Results for this AM JOINER procedure are in the results section. DC AN ELECTIVE Routine 11/07/2017 8:17 ENDOTRACHEAL AIRWAY AM JOINER Procedure Note - Clovis Martel CRNA - 11/07/2017 8:17 AM JOINER Airway Date/Time: 11/07/2017 8:05 AM Performed by: CLOVIS MARTEL Authorized by: CIERRA SEO Location: OR Urgency: Elective Difficult Airway: No Anesthesiologist: CIERRA SEO Resident/PHP ENGINEER/AA: CLOVIS MARTEL Performed by: resident/PHP ENGINEER/AA Preoxygenated with 100% O2: Yes C-spine [...] Routine 11/07/2017 7:48 AM Results for this JOINER procedure are in the results section. POC PANEL 4 Routine 11/07/2017 7:44 AM Results for this JOINER procedure are in the results section. ZZESTIMATED GFR STAT 11/07/2017 7:40 AM Results for this JOINER procedure are in the results section. BASIC METABOLIC PANEL STAT 11/07/2017 7:40 AM Results for this JOINER procedure are in the results section. ECG 12-LEAD Routine 11/02/2017 4:21 PM Preop testing Results for this JOINER procedure are in the results section. HC COMPLETE BLD COUNT Routine 11/02/2017 4:09 PM Preop testing Results for this W/AUTO DIFF JOINER procedure are in the results section. after 07/20/2017 Results US Renal (05/31/2018 4:40 PM) Narrative [...] IMPRESSION: Findings consistent with medical renal disease. [facility]-[id number] Procedure Note Interface, Radiology Results Incoming - [...] IMPRESSION: Findings consistent with medical renal disease. [facility]-[id number] Performing Organization Address City/State/Zipcode Phone Number [facility] [address] [place] [address] XR Chest 2 Vw (05/31/2018 4:22 PM) [...] in the minor fissure. No focal consolidation. [id number] Procedure Note Interface, Radiology Results Incoming - [...] in the minor fissure. No focal consolidation. [facility]-[id number] Performing Organization Address City/State/Zipcode Phone Number CHERELLE [address] [facility] [place] [address] Echocardiogram complete w contrast and 3D if needed (05/31/2018 3:46 PM) Narrative Performed At [facility] Echocardiography Report [id number] [facility], [facility] [address], [place] [address] Pat.Name:MARNIE LYLES WPat.ID:[id number] .Date: 05/31/2018Refer.MD:ALICIA CORTEZ MD Exam Time: 2:14:00 PMStudy Type:Routine Echo Height:69inWeight: 223lb BSA: 2.17 m2 DOBAge:1960,57Y Sex: MALEBP:181/82 HR:76 bpm Sonogrphr: Marielos Middleton RDCS, Jenn Taylor Pat. Stat.:OutpatientStudy Status:Final Echo Event ID:[id number] Order ID:[id number] Reason for Study:Renal Transplant Evaluation Dx,ESRD (end [...] RAPof 10 mmHg. MEASUREMENTS: 2D Parasternal [place] LVOT 1.8 cmLA Ds4.6 cm LVIDd6 cmIndex2.8 cm/m Ao An1.8 cm LVIDs4.2 cmAo Rtd 3.4 cm Index1.6 cm/m LV%fs 29.4 % LV Atzd167.3 g(122-174) IVSd 1.1 cmLVM Nndnt806.4 g/m2 LVPWd1.4 cmRWT0.5 Right Ventricle RVIDd4.3 cm (2.6-4.3) LA Sng Plane LA Area 25.7 cm2(8.8-23.4) LA Vol82.6 ml Index38.1 ml/m LA LngAx 6.6 cm RA Sng Plane RA Area 22 cm2(8.3-19.5) RA Vol68.4 ml Index31.5 ml/m RA LngAx 5.9 cm Ascending Aorta Asce Dim 2.8 cm DOPPLER LVOT Stroke Vol LVOT 1.8 cmLVOT CO5.9 l/min LVOT TVI30.6 cmLVOT CI2.7 l/m/m2 LVOT Tm361 [id number] bpm LVOT SV 78 ml MV E/A [...] 06/01/2018 1:20 PM CDT Echocardiography Report [address] [facility], [place] [address], [place] [address] Pat.Name: MARNIE LYLES Pat.ID: [id number] .Date: 05/31/2018 Refer.MD: ALICIA CORTEZ MD Exam Time: 2:14:00 PM Study Type:Routine Echo Height: 69in Weight: 223lb BSA: 2.17 m2 Age: 8 1960,57Y Sex: MALE BP: 181/82 HR: 76 bpm Sonogrphr: Marielos Middleton RDCS, Jenn Taylor Pat. Stat.:Outpatient Study Status:Final Echo Event ID:[id number] Order ID: [id number] Reason for Study:Renal Transplant Evaluation Dx,ESRD (end [...] of 10 mmHg. MEASUREMENTS: 2D Parasternal [place] LVOT 1.8 cm LA Ds 4.6 cm [...] PM Edward Liao M.D. Performing Organization Address [facility] Phone Number [facility] [address] [place] [address] EKG 12-LEAD (05/31/2018 1:42 PM)Only the most recent of2 resultswithin the time period is included. Ventricular rate 79 HM MUSE Atrial rate 79 [facility] MUSE DC interval 158 [facility] MUSE QRSD interval 82 [facility] MUSE QT interval 424 [facility] MUSE QTC interval 486 [facility] MUSE P axis 1 49 [facility] MUSE QRS axis 1 29 HM MUSE T wave axis 69 [facility] MUSE EKG impression Normal sinus rhythm-Possible Left atrial enlargement-Anterior infarct (cited on or before 02-NOV-2017)-Abnormal ECG-In automated comparison with ECG of 02-NOV-2017 16:21,-Nonspecific T wave abnormality [facility] MUSE now evident in Lateral leads- Performing Organization Address [facility] Phone Number [facility] MUSE [address] [place] [address] Syphilis treponemal IgG (05/10/2018 10:45 AM) Syphilis treponemal IgG Non-reactiveComment: Non-reactive [facility] DEPARTMENT OF Non-reactive: No PATHOLOGY AND GENOMIC serological evidence of MEDICINE Syphilis infection Specimen Serum Performing Organization Address [facility] Phone Number [facility] DEPARTMENT OF PATHOLOGY AND [address] [place] [address] GENOMIC MEDICINE Urinalysis screen and microscopy, with reflex to culture (05/10/2018 10:45 AM) Specimen site Clean catch [facility] DEPARTMENT OF PATHOLOGY AND GENOMIC MEDICINE Color, UA Straw [facility] DEPARTMENT OF PATHOLOGY AND GENOMIC MEDICINE Appearance, UA Clear [facility] DEPARTMENT OF PATHOLOGY AND GENOMIC MEDICINE Specific gravity, UA 1.011 1.001 - 1.035 [facility] DEPARTMENT OF PATHOLOGY AND GENOMIC MEDICINE pH, UA 7.0 5.0 - 8.5 [facility] DEPARTMENT OF PATHOLOGY AND GENOMIC MEDICINE Protein, UA 3+ (A) Negative [facility] DEPARTMENT OF PATHOLOGY AND GENOMIC MEDICINE Glucose, UA 2+ (A) Negative [facility] DEPARTMENT OF PATHOLOGY AND GENOMIC MEDICINE Ketones, UA Negative Negative [facility] DEPARTMENT OF PATHOLOGY AND GENOMIC MEDICINE Bilirubin, UA Negative Negative [facility] DEPARTMENT OF PATHOLOGY AND GENOMIC MEDICINE Blood, UA Moderate (A) Negative [facility] DEPARTMENT OF PATHOLOGY AND GENOMIC MEDICINE Nitrite, UA Negative Negative [facility] DEPARTMENT OF PATHOLOGY AND GENOMIC MEDICINE Urobilinogen, UA <2.0 <2.0 [facility] DEPARTMENT OF PATHOLOGY AND GENOMIC MEDICINE Leukocyte esterase, UA Negative Negative [facility] DEPARTMENT OF PATHOLOGY AND GENOMIC MEDICINE Round epithelial cells, UA <1 0 - 1 /HPF [facility] DEPARTMENT OF PATHOLOGY AND GENOMIC MEDICINE WBC, UA 11 (H) 0 - 1 /HPF [facility] DEPARTMENT OF PATHOLOGY AND GENOMIC MEDICINE RBC, UA 85 (H) 0 - 5 /HPF [facility] DEPARTMENT OF PATHOLOGY AND GENOMIC MEDICINE Bacteria, UA Few None seen [facility] DEPARTMENT OF PATHOLOGY AND GENOMIC MEDICINE Yeast, UA None seen [facility] DEPARTMENT OF PATHOLOGY AND GENOMIC MEDICINE Yeast with pseudohyphae, UA None seen [facility] DEPARTMENT OF PATHOLOGY AND GENOMIC MEDICINE Specimen Urine Performing Organization Address City/[facility] Phone Number [facility] DEPARTMENT OF PATHOLOGY AND [address] [place] [address] HIV Ag/Ab combination (05/10/2018 10:45 AM) HIV Ag/Ab combination Non-reactive Non-reactive [facility] DEPARTMENT OF PATHOLOGY AND GENOMIC MEDICINE Specimen Blood Performing Organization Address City/[facility]/Zipcode Phone Number [facility] DEPARTMENT OF PATHOLOGY AND [address] [place] [address] [facility] TB T-SPOT (05/10/2018 10:45 AM) TB T-SPOT SEE NOTE [facility] DEPARTMENT OF PATHOLOGY Comment: AND GENOMIC MEDICINE [...] FOR USE WITH T=SPOT.TB TEST. Performed by: [facility] Molecular Tuberculosis Laboratory [facility] ([id number]) [place], [place] [address] Specimen Blood Performing Organization Address [facility] Phone Number [facility] DEPARTMENT OF PATHOLOGY AND [address] Nicotine and metabolites, serum (05/10/2018 10:45 AM) Nicotine <2.0 0.0 - 2.0 ng/mL [facility] DEPARTMENT OF PATHOLOGY AND GENOMIC MEDICINE Cotinine 2.7 (H) 0.0 - 2.0 ng/mL [facility] DEPARTMENT OF PATHOLOGY AND GENOMIC MEDICINE 2-TT-knapfsoy <5.0 0.0 - 5.0 ng/mL [facility] DEPARTMENT OF Comment: PATHOLOGY AND GENOMIC This test was developed and its performance characteristics determined by MEDICINE the Department of Pathology and Genomic Medicine, [facility]. Serum nicotine and its metabolites cotinine and 9-PV-mtstgvhg are tested by HPLC tandem mass spectrometry. It has not been cleared or approved by FDA. The laboratory is regulated under CLIA as qualified to perform high-complexity testing. This test is used for clinical purposes. It should not be regarded as investigational or for research. Specimen Blood Performing Organization Address [facility] Phone Number [facility] DEPARTMENT OF PATHOLOGY AND [address] [place] [address] Hepatitis B surface Ab, quantitative (05/10/2018 10:45 [...] Cellular and Tissue-Based Products (HCT/P). Performed by [facility], [address], [place] [id number] [email or web address], Cam Sauceda MD - Lab. Director Specimen Serum Performing Organization Address City/[facility]/Zipcode Phone Number [facility] [address] [place] [address] Estimated GFR (05/10/2018 10:45 AM)Only the most recent of7 resultswithin the time period is included. GFR Non Af Amer 5 (A) mL/min/1.73 m2 [facility] DEPARTMENT OF PATHOLOGY AND GENOMIC MEDICINE GFR Af Amer 6 (A) mL/min/1.73 m2 [facility] DEPARTMENT OF Comment: PATHOLOGY AND GENOMIC Chronic [...] specimen Performing Organization Address City/State/Zipcode Phone Number [facility] DEPARTMENT OF PATHOLOGY AND [address] [place] [address] [facility] Hepatitis C antibody (05/10/2018 10:45 AM) Hepatitis C Ab Non-reactive Non-reactive [facility] DEPARTMENT OF PATHOLOGY AND we[facility] MEDICINE Specimen Blood Performing Organization Address City/State/Zipcode Phone Number [facility] DEPARTMENT OF PATHOLOGY AND [address] Hepatitis A antibody total (05/10/2018 10:45 AM) Hepatitis A total Ab Non-reactive Non-reactive [facility] DEPARTMENT OF PATHOLOGY AND [facility] Specimen Blood Performing Organization Address City/State/Zipcode Phone Number [facility] DEPARTMENT OF PATHOLOGY AND [address] [place] [address] [facility] Drug alvarez 9, ser/mookie, scrn w/rflx to [...] use. Test developed and characteristics determined by [facility]. See Compliance Statement B: [email or web address].FiFully/CS Performed by [facility], [address] [place] [address] [email or web address], Cam Sauceda MD - Lab. Director Specimen Serum Performing Organization Address City/[facility]ode Phone Number [facility] [address] [place] [address] ABORh - transplant (05/10/2018 10:45 AM) ABO grouping O [facility] DEPARTMENT OF PATHOLOGY AND GENOMIC MEDICINE Rh type POS [facility] DEPARTMENT OF PATHOLOGY AND GENOMIC MEDICINE Specimen Blood Performing Organization Address City/[facility] Phone Number [facility] DEPARTMENT OF PATHOLOGY AND [address] [place] [address] Hepatitis B core antibody total (05/10/2018 10:45 AM) Hepatitis B core total Ab Non-reactive Non-reactive [facility] DEPARTMENT OF PATHOLOGY AND GENOMIC MEDICINE Specimen Blood Performing Organization Address City/[facility] Phone Number [facility] DEPARTMENT OF PATHOLOGY AND [address] [place] [address] C-peptide (05/10/2018 10:45 AM) C-peptide 4.0 1.1 - 4.4 ng/mL [facility] DEPARTMENT OF PATHOLOGY AND GENOMIC MEDICINE Specimen Plasma specimen Performing Organization Address [facility] Phone Number [facility] DEPARTMENT OF PATHOLOGY AND [address] [place] [address] Hepatitis B surface antibody (05/10/2018 10:45 AM)Only the most recent of2 resultswithin the time period is included. Hepatitis B surface Ab Non-reactive Non-reactive [facility] DEPARTMENT OF PATHOLOGY AND GENOMIC MEDICINE Specimen Blood Performing Organization Address City/[facility] Cent[facility] Phone Number [facility] DEPARTMENT OF PATHOLOGY AND [address] [place] [address] Hepatitis B surface antigen (05/10/2018 10:45 AM)Only the most recent of2 resultswithin the time period is included. Hepatitis B surface Ag Non-reactive Non-reactive [facility] DEPARTMENT OF PATHOLOGY AND GENOMIC MEDICINE Specimen Blood Performing Organization Address City/[facility] Phone Number [facility] DEPARTMENT OF PATHOLOGY AND [address] [place] [address] Partial thromboplastin time, activated (05/10/2018 10:45 AM)Only the most recent of2 resultswithin the time period is included. PTT 47.7 (H) 23.0 - 36.0 sec [facility] DEPARTMENT OF PATHOLOGY Comment: AND [facility] PTT therapeutic range for unfractionated heparin is 61.0-112.0 seconds which corresponds to Anti-Xa 0.3-0.7 U/ml. Specimen Blood Performing Organization Address City/[facility] Phone Number [facility] DEPARTMENT OF PATHOLOGY AND [address] [place] [address] Prothrombin time with INR (05/10/2018 10:45 AM)Only the most recent of2 resultswithin the time period is included. Prothrombin time 14.3 12.0 - 15.0 sec [facility] DEPARTMENT OF PATHOLOGY AND GENOMIC MEDICINE INR 1.1 [facility] DEPARTMENT OF Comment: PATHOLOGY AND GENOMIC The International Normalized Ratio (INR) is a therapeutic MEDICINE monitoring tool for patients who are stable on oral anticoagulant therapy. An INR of 2.0-3.0 is suggested for deep vein thrombosis/pulmonary embolism. Specimen Blood Performing Organization Address [facility] Phone Number [facility] DEPARTMENT OF PATHOLOGY AND [address] [place] [address] Gram stain (05/10/2018 10:45 AM)Only the most recent of2 resultswithin the time period is included. Gram stain result No WBC's or organisms seen. [facility] DEPARTMENT OF PATHOLOGY Comment: AND webtide [facility] Specimen Information Specimen Source: Urine Specimen Site: Clean catch Specimen Urine Performing Organization Address [facility] Cent[facility] Phone Number [facility] DEPARTMENT OF PATHOLOGY AND [address] [place] [address] CBC with platelet and differential (05/10/2018 10:45 AM)Only the most recent of7 resultswithin the time period is included. WBC 6.04 4.50 - 11.00 k/uL [facility] DEPARTMENT OF PATHOLOGY AND GENOMIC MEDICINE RBC 3.35 (L) 4.40 - 6.00 m/uL [facility] DEPARTMENT OF PATHOLOGY AND GENOMIC MEDICINE HGB 9.6 (L) 14.0 - 18.0 g/dL [facility] DEPARTMENT OF PATHOLOGY AND GENOMIC MEDICINE HCT 30.0 (L) 41.0 - 51.0 % [facility] DEPARTMENT OF PATHOLOGY AND GENOMIC MEDICINE MCV 89.6 82.0 - 100.0 fL [facility] DEPARTMENT OF PATHOLOGY AND GENOMIC MEDICINE MCH 28.7 27.0 - 34.0 pg [facility] DEPARTMENT OF PATHOLOGY AND GENOMIC MEDICINE MCHC 32.0 31.0 - 37.0 g/dL [facility] DEPARTMENT OF PATHOLOGY AND GENOMIC MEDICINE RDW - SD 50.6 37.0 - 55.0 fL [facility] DEPARTMENT OF PATHOLOGY AND GENOMIC MEDICINE MPV 9.6 8.8 - 13.2 fL [facility] DEPARTMENT OF PATHOLOGY AND GENOMIC MEDICINE Platelet count 277 150 - 400 k/uL [facility] DEPARTMENT OF PATHOLOGY AND GENOMIC MEDICINE Nucleated RBC 0.00 /100 WBC [facility] DEPARTMENT OF PATHOLOGY AND GENOMIC MEDICINE Neutrophils 75.4 (H) 39.0 - 69.0 % [facility] DEPARTMENT OF PATHOLOGY AND GENOMIC MEDICINE Lymphocytes 12.3 (L) 25.0 - 45.0 % [facility] DEPARTMENT OF PATHOLOGY AND GENOMIC MEDICINE Monocytes 6.0 0.0 - 10.0 % [facility] DEPARTMENT OF PATHOLOGY AND GENOMIC MEDICINE Eosinophils 3.8 0.0 - 5.0 % [facility] DEPARTMENT OF PATHOLOGY AND GENOMIC MEDICINE Basophils 1.5 (H) 0.0 - 1.0 % [facility] DEPARTMENT OF PATHOLOGY AND GENOMIC MEDICINE Immature granulocytes 1.0Comment: 0.0 - 1.0 % [facility] DEPARTMENT OF "Immature PATHOLOGY AND GENOMIC granulocytes" MEDICINE (promyelocytes, myelocytes, metamyelocytes) Specimen Blood Performing Organization Address City/State/Zipcode Phone Number [facility] DEPARTMENT OF PATHOLOGY AND [address] [place] [address] [facility] Urine culture (05/10/2018 10:45 AM) Urine culture isolate Mixed Gram positive juwan [facility] DEPARTMENT OF 10-3 cfu/ml PATHOLOGY AND GENOMIC (A) MEDICINE Comment: Specimen Information Specimen Source: Urine Specimen Site: Clean catch Specimen Urine Performing Organization Address City/[facility]/Zipcode Phone Number [facility] DEPARTMENT OF PATHOLOGY AND [address] [place] [address] [facility] Serum electrophoresis (05/10/2018 10:45 AM) Protein 6.7 6.3 - 8.3 g/dL [facility] DEPARTMENT OF Comment: PATHOLOGY AND GENOMIC [place] 4.6-7.0 g/dL MEDICINE 1 week 4.4-7.6 g/dL 7 months-1year5.1-7.3 g/dL 1-2 years5.6-7.5 g/dL >3 years6.0-8.0 g/dL 18-150 6.3-8.3 g/dL SPE albumin 3.52 (L) 4.00 - 5.30 g/dL [facility] DEPARTMENT OF PATHOLOGY AND GENOMIC MEDICINE SPE alpha 1 0.30 (H) 0.10 - 0.25 g/dL [facility] DEPARTMENT OF PATHOLOGY AND GENOMIC MEDICINE SPE alpha 2 0.88 (H) 0.58 - 0.84 g/dL [facility] DEPARTMENT OF PATHOLOGY AND GENOMIC MEDICINE SPE beta 0.62 0.50 - 1.10 g/dL [facility] DEPARTMENT OF PATHOLOGY AND GENOMIC MEDICINE SPE gamma 1.37 (H) 0.60 - 1.30 g/dL [facility] DEPARTMENT OF PATHOLOGY AND GENOMIC MEDICINE SPE extended See Comment [facility] DEPARTMENT OF interpretation Comment: PATHOLOGY AND GENOMIC Albumin is decreased while gamma globulins are diffusely increased and MEDICINE alpha-1 globulins and alpha-2 globulins are increased indicating a concomitant acute phase response and chronic disease pattern. SPE interpretation See CommentComment: [facility] DEPARTMENT OF Maira Collins MD; Clint PATHOLOGY AND [facility] Centeryana PhD; MEDICINE Mathieu Angelo MD Specimen Serum Performing Organization Address City/[facility]erc[facility] Phone Number [facility] DEPARTMENT OF PATHOLOGY AND [address] [place] [address] Prostate specific antigen (05/10/2018 10:45 AM) PSA 0.6 0.0 - 4.0 ng/mL [facility] DEPARTMENT OF PATHOLOGY Comment: AND [facility] The GEORGE 8000 PSA immunoassay was used. Results obtained with different assay methods or kits should not be used interchangeably and may be different. Specimen Plasma specimen Performing Organization Address City/[facility] Phone Number [facility] DEPARTMENT OF PATHOLOGY AND [address] [place] [address] [facility] Comprehensive metabolic panel (05/10/2018 10:45 AM)Only the most recent of5 resultswithin the time period is included. Sodium 139 135 - 148 mEq/L [facility] DEPARTMENT OF PATHOLOGY AND GENOMIC MEDICINE Potassium 4.6 3.5 - 5.0 mEq/L [facility] DEPARTMENT OF PATHOLOGY AND GENOMIC MEDICINE Chloride 96 (L) 98 - 112 mEq/L [facility] DEPARTMENT OF PATHOLOGY AND GENOMIC MEDICINE CO2 22 (L) 24 - 31 mEq/L [facility] DEPARTMENT OF PATHOLOGY AND GENOMIC MEDICINE Anion gap 21@ANIO (H) 7 - 15 mEq/L [facility] DEPARTMENT OF PATHOLOGY AND GENOMIC MEDICINE BUN 70 (H) 6 - 20 mg/dL [facility] DEPARTMENT OF PATHOLOGY AND GENOMIC MEDICINE Creatinine 10.4 (H) 0.7 - 1.2 mg/dL [facility] DEPARTMENT OF PATHOLOGY AND GENOMIC MEDICINE Glucose 138 (H) 65 - 99 mg/dL [facility] DEPARTMENT OF PATHOLOGY AND GENOMIC MEDICINE Calcium 8.0 (L) 8.3 - 10.2 mg/dL [facility] DEPARTMENT OF PATHOLOGY AND GENOMIC MEDICINE Protein 7.7 6.3 - 8.3 g/dL [facility] DEPARTMENT OF Comment: PATHOLOGY AND GENOMIC 4.6-7.0 g/dL MEDICINE 1 week 4.4-7.6 g/dL 7 months-1year5.1-7.3 g/dL 1-2 years5.6-7.5 g/dL >3 years6.0-8.0 g/dL 18-150 6.3-8.3 g/dL Albumin 2.6 (L) 3.5 - 5.0 g/dL [facility] DEPARTMENT OF PATHOLOGY AND GENOMIC MEDICINE A/G ratio 0.5 (L) 0.7 - 3.8 [facility] DEPARTMENT OF PATHOLOGY AND GENOMIC MEDICINE Alkaline phosphatase 261 (H) 40 - 129 U/L [facility] DEPARTMENT OF PATHOLOGY AND GENOMIC MEDICINE AST 21 10 - 50 U/L [facility] DEPARTMENT OF PATHOLOGY AND GENOMIC MEDICINE ALT 18 5 - 50 U/L [facility] DEPARTMENT OF PATHOLOGY AND GENOMIC MEDICINE Total bilirubin 0.3 0.0 - 1.2 mg/dL [facility] DEPARTMENT OF PATHOLOGY AND GENOMIC MEDICINE Specimen Plasma specimen Performing Organization Address City/State/Zipcode Phone Number [facility] DEPARTMENT OF PATHOLOGY AND [address] [place] [address] GENOMIC MEDICINE POC glucose (02/05/2018 11:55 AM)Only the most recent of29 resultswithin the time period is included. POC glucose 94 65 - 99 mg/dL [facility] DEPARTMENT OF PATHOLOGY AND Comment: GENOMIC MEDICINE RN Notified Meter ID: [id number] Junior Sales Assistant: Lyubov Costa Performing Organization Address City/State/Zipcode Phone Number [facility] DEPARTMENT OF PATHOLOGY [address] [place] [address] AND GENOMIC MEDICINE Manual differential (02/04/2018 6:00 AM)Only the most recent of2 resultswithin the time period is included. Manual differential PERFORMED [facility] DEPARTMENT OF PATHOLOGY AND GENOMIC MEDICINE Neutrophils 69.0 39.0 - 69.0 % [facility] DEPARTMENT OF PATHOLOGY AND GENOMIC MEDICINE Lymphocytes 14.0 (L) 25.0 - 45.0 % [facility] DEPARTMENT OF PATHOLOGY AND GENOMIC MEDICINE Monocytes 11.0 (H) 0.0 - 10.0 % [facility] DEPARTMENT OF PATHOLOGY AND GENOMIC MEDICINE Eosinophils 3.0 0.0 - 5.0 % [facility] DEPARTMENT OF PATHOLOGY AND GENOMIC MEDICINE Basophils 2.0 (H) 0.0 - 1.0 % [facility] DEPARTMENT OF PATHOLOGY AND GENOMIC MEDICINE Metamyelocytes 1 % [facility] DEPARTMENT OF PATHOLOGY AND GENOMIC MEDICINE Platelet slide review Luci adequate [facility] DEPARTMENT OF PATHOLOGY AND GENOMIC MEDICINE Anisocytosis Moderate [facility] DEPARTMENT OF PATHOLOGY AND GENOMIC MEDICINE Polychromasia Moderate [facility] DEPARTMENT OF PATHOLOGY AND GENOMIC MEDICINE Tear drop cells Occasional [facility] DEPARTMENT OF PATHOLOGY AND GENOMIC MEDICINE Ovalocytes Moderate [facility] DEPARTMENT OF PATHOLOGY AND GENOMIC MEDICINE Enlarged platelets Moderate (A) [facility] DEPARTMENT OF PATHOLOGY AND GENOMIC MEDICINE Performing Organization Address City/State/Zipcode Phone Number [facility] DEPARTMENT OF PATHOLOGY [address] [place] [address] AND [facility] Basic metabolic panel (02/04/2018 6:00 AM)Only the most recent of2 resultswithin the time period is included. Sodium 139 135 - 148 mEq/L [facility] DEPARTMENT OF PATHOLOGY AND GENOMIC MEDICINE Potassium 3.8 3.5 - 5.0 mEq/L [facility] DEPARTMENT OF PATHOLOGY AND GENOMIC MEDICINE Chloride 97 (L) 98 - 112 mEq/L [facility] DEPARTMENT OF PATHOLOGY AND GENOMIC MEDICINE CO2 29 24 - 31 mEq/L [facility] DEPARTMENT OF PATHOLOGY AND GENOMIC MEDICINE Anion gap 13 7 - 15 mEq/L [facility] DEPARTMENT OF Comment: PATHOLOGY AND GENOMIC Starting from December , anion gap calculation MEDICINE no longer incorporates potassium. Please note the change. BUN 47 (H) 6 - 20 mg/dL [facility] DEPARTMENT OF PATHOLOGY AND GENOMIC MEDICINE Creatinine 8.2 (H) 0.7 - 1.2 mg/dL [facility] DEPARTMENT OF PATHOLOGY AND GENOMIC MEDICINE Glucose 89 65 - 99 mg/dL [facility] DEPARTMENT OF PATHOLOGY AND GENOMIC MEDICINE Calcium 8.1 (L) 8.3 - 10.2 mg/dL [facility] DEPARTMENT OF PATHOLOGY AND GENOMIC MEDICINE Specimen Plasma specimen Performing Organization Address [facility] Phone Number [facility] DEPARTMENT OF PATHOLOGY [address] [place] [address]. [place] [address] AND [facility] Phosphorus level (02/03/2018 6:00 AM)Only the most recent of3 resultswithin the time period is included. Phosphorus 6.1 (H) 2.4 - 4.5 mg/dL [facility] DEPARTMENT OF PATHOLOGY AND [facility] Specimen Plasma specimen Performing Organization Address [facility] Phone Number [facility] DEPARTMENT OF PATHOLOGY [address] [place] [address]. [place] [address] AND [facility] Rapid HIV 1 & 2 (02/02/2018 12:45 PM) Rapid HIV 1 and 2 Non-Reactive Non-Reactive [facility] DEPARTMENT OF PATHOLOGY AND [facility] Specimen Blood Performing Organization Address [facility] Phone Number [facility] DEPARTMENT OF PATHOLOGY [address] [place] [address]. [place] [address] AND [facility] IR Lumbar Puncture by Radiology (02/02/2018 11:41 [...] fluoroscopic guided lumbar puncture as detailed above. [facility]-[id number] Procedure Note Interface, Radiology Results Incoming - [...] fluoroscopic guided lumbar puncture as detailed above. [id number] Performing Organization Address [facility] Phone Number [facility] [address] [place] [address] Varicella zoster by PCR (02/02/2018 11:35 AM)Only the most recent of2 resultswithin the time period is included. VZV result Not-Detected Not-Detected [facility] DEPARTMENT OF copies/mL PATHOLOGY AND GENOMIC MEDICINE Varicella zoster, PCR See link below for [facility] DEPARTMENT OF PDF Lab PATHOLOGY AND GENOMIC ReportComment: Case MEDICINE Number: [id number] Performing Organization Address [facility] Phone Number [facility] DEPARTMENT OF PATHOLOGY AND [address] [place] [address] Herpes simplex virus by PCR (02/02/2018 11:35 AM) Herpes virus, PCR Not-Detected Not-Detected [facility] DEPARTMENT OF PATHOLOGY AND GENOMIC MEDICINE Herpes virus, PCR See link below for PDF [facility] DEPARTMENT OF PATHOLOGY Lab ReportComment: Case AND GENOMIC MEDICINE Number: [id number] Performing Organization Address [facility] Phone Number [facility] DEPARTMENT OF PATHOLOGY AND [address] [place] [address] AFB culture (02/02/2018 11:35 AM) AFB culture isolate No growth after 6 weeks of incubation. [facility] DEPARTMENT OF PATHOLOGY Comment: AND [employer] MEDICINE Specimen Information Specimen Source: CSF (Spinal Fluid) Specimen Site: Back Specimen Cerebrospinal fluid - Back Performing Organization Address [facility] Phone Number [facility] DEPARTMENT OF PATHOLOGY AND [address] [place] [address] Cryptococcal antigen, screen (02/02/2018 11:35 AM) Cryptococcal Ag Negative - No Cryptococcus antigen detected. [facility] DEPARTMENT OF PATHOLOGY Comment: AND GENOMIC MEDICINE Specimen Information Specimen Source: CSF (Spinal Fluid) Specimen Site: Back Specimen Cerebrospinal fluid - Back Performing Organization Address [facility]/Zipcode Phone Number [facility] DEPARTMENT OF PATHOLOGY AND [address] [place] [id number] [place] [address] Enterovirus by PCR (02/02/2018 11:35 AM) Enterovirus PCR Not-Detected Not-Detected [facility] DEPARTMENT OF PATHOLOGY AND GENOMIC MEDICINE Enterovirus PCR See link below for PDF Lab [facility] DEPARTMENT OF PATHOLOGY ReportComment: Case AND GENOMIC MEDICINE Number: [id number] Performing Organization Address City/[facility] Phone Number [facility] DEPARTMENT OF PATHOLOGY AND [address] [place] [address] [facility] CSF culture (02/02/2018 11:35 AM) CSF culture isolate No growth after 3 days. [facility] DEPARTMENT OF PATHOLOGY Comment: AND GENOMIC MEDICINE Specimen Information Specimen Source: CSF (Spinal Fluid) Specimen Site: Back Specimen Cerebrospinal fluid - Back Performing Organization Address [facility] Phone Number [facility] DEPARTMENT OF PATHOLOGY AND [address] [place], [place] [id number] [facility] Fungus culture (02/02/2018 11:35 AM) Fungus culture isolate No growth after 4 weeks of incubation. [facility] DEPARTMENT OF Comment: PATHOLOGY AND GENOMIC Specimen Information MEDICINE Specimen Source: CSF (Spinal Fluid) Specimen Site: Back Specimen Cerebrospinal fluid - Back Performing Organization Address [facility] Phone Number [facility] DEPARTMENT OF PATHOLOGY AND [address] [place] [address] [facility] CSF cell count with differential (02/02/2018 11:35 AM) Color, CSF Colorless [facility] DEPARTMENT OF PATHOLOGY AND GENOMIC MEDICINE Appearance, CSF Clear [facility] DEPARTMENT OF PATHOLOGY AND GENOMIC MEDICINE CSF supernatant Colorless [facility] DEPARTMENT OF PATHOLOGY AND GENOMIC MEDICINE RBC, CSF 0 0 - 1 /CMM [facility] DEPARTMENT OF PATHOLOGY AND GENOMIC MEDICINE WBC, CSF 2 0 - 5 /CMM [facility] DEPARTMENT OF PATHOLOGY AND GENOMIC MEDICINE Specimen Cerebrospinal fluid Performing Organization Address City/[facility]/Zipcode Phone Number [facility] DEPARTMENT OF PATHOLOGY [address] [place] [phone] AND [employer] MEDICINE Protein, CSF (02/02/2018 11:35 AM) Protein, CSF 44 15 - 45 mg/dL [facility] DEPARTMENT OF PATHOLOGY AND GENOMIC MEDICINE Specimen Cerebrospinal fluid Performing Organization Address City/[facility]/Zipcode Phone Number [facility] DEPARTMENT OF PATHOLOGY [id number] [place] [address]. [place] [address] AND [facility] Glucose level, CSF (02/02/2018 11:35 AM) Glucose, CSF 65 40 - 70 mg/dL [facility] DEPARTMENT OF PATHOLOGY AND GENOMIC MEDICINE Specimen Cerebrospinal fluid Performing Organization Address City/[facility]/Zipcode Phone Number [facility] DEPARTMENT OF PATHOLOGY [address] [place] [address]. [place] [address] AND [facility] Hemoglobin A1c (02/02/2018 5:40 AM) Hemoglobin A1C 6.4 (H) 4.0 - 6.0 % [facility] DEPARTMENT OF PATHOLOGY Comment: AND [employer] MEDICINE Less than 6% - Goal of therapy for Type II Diabetes Less than 7%-Goal of therapy for Type I Diabetes Less than 8%-Acceptable control for Type I or Type II Diabetes Greater than 8%-Unacceptable control; action indicated. ([id number]) Specimen Blood Performing Organization Address [facility]/Zipcode Phone Number [facility] DEPARTMENT OF PATHOLOGY [id number] [place] [address]. [place] [address] AND [facility] Lipid panel (02/02/2018 5:40 AM) Cholesterol 132 0 - 199 mg/dL [facility] DEPARTMENT OF PATHOLOGY AND GENOMIC MEDICINE Triglycerides 170 (H) 0 - 149 mg/dL [facility] DEPARTMENT OF PATHOLOGY AND GENOMIC MEDICINE HDL cholesterol 42 40 - 99,999 [facility] DEPARTMENT OF mg/dL PATHOLOGY AND GENOMIC MEDICINE LDL cholesterol 56 0 - 99 mg/dL [facility] DEPARTMENT OF PATHOLOGY AND GENOMIC MEDICINE Lipid panel See below [facility] DEPARTMENT OF interpretation Comment: PATHOLOGY AND Total Cholesterol (mg/dL) GENOMIC MEDICINE <200 Desirable 338-396Dghjsffvts-pgal >=240High Triglycerides (mg/dL) <150 Normal [phone]-qief 200-499High >=500Very high HDL Cholesterol (mg/dL) <40Low (male) <50Low (female) LDL Cholesterol (mg/dL) <100 Optimal 100-129Near or above optimal [phone]-cmag 160-189High >=190Very high Risk Catergories that modify [...] specimen Performing Organization Address City/State/Zipcode Phone Number [facility] DEPARTMENT OF PATHOLOGY [address] [facility] [place] [address] AND [employer] MEDICINE MRA Neck Wo Contrast (02/01/2018 2:52 PM) Narrative Performed At EXAMINATION:[facility]ECK [facility] CLINICAL HISTORY:slurred speech COMPARISON:None. TECHNIQUE: Neck MRA using 2D and 3D erpr-va-girots technique with multi-planar MIP and 3D reconstruction. [...] neck could be performed if clinically indicated. [id number] Procedure Note Interface, Radiology Results Incoming - 02/01/2018 3:01 PM CDT EXAMINATION: MRA NECK WO CONTRAST CLINICAL HISTORY: slurred speech COMPARISON: None. TECHNIQUE: Neck MRA using 2D and 3D jjju-lo-fthexf technique with multi-planar MIP and 3D reconstruction. [...] neck could be performed if clinically indicated. [id number] Performing Organization Address [facility] Phone Number [facility] [address] [place] [address] MRA Head Wo Contrast (02/01/2018 2:52 PM) Narrative Performed At EXAMINATION:MRA HEAD WO CONTRAST [facility] CLINICAL HISTORY:slurred speech COMPARISON:None. TECHNIQUE: [id number]-ok-vcbase MR angiography was performed without contrast and includes 3-D MIP image reconstructions FINDINGS: The large intracranial arteries are patent. 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 There is no definite large vessel stenosis or occlusion or definite aneurysm. IMPRESSION: Patency of the large intracranial arteries. [facility]-[id number] Procedure Note Interface, Radiology Results Incoming - 02/01/2018 2:59 PM CDT EXAMINATION: MRA HEAD WO CONTRAST CLINICAL HISTORY: slurred speech COMPARISON: None. TECHNIQUE: [id number]-da-[id number] MR angiography was performed without contrast and includes 3-D MIP image reconstructions FINDINGS: The large intracranial arteries are patent. 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 There is no definite large vessel stenosis or occlusion or definite aneurysm. IMPRESSION: Patency of the large intracranial arteries. [facility]-[id number] Performing Organization Address [facility] Phone Number [facility] [address] [place] [address] MRI Stroke Brain Wo Contrast (02/01/2018 2:21 [...] clear. IMPRESSION: 1. No acute intracranial abnormality. [id number] Procedure Note Interface, Radiology Results Incoming - [...] clear. IMPRESSION: 1. No acute intracranial abnormality. [id number] Performing Organization Address City/State/Zipcode Phone Number [facility] [address] [place] [address] EEG (routine) (02/01/2018 10:12 AM) Narrative Performed At Date of Study Completion: February 01, 2018 [facility] DEPARTMENT OF PATHOLOGY AND Date of Interpretation: [...] course of this tracing. Performing Organization Address City/[facility] Phone Number [facility] DEPARTMENT OF PATHOLOGY [address] [facility] [place] [address] AND webtide [facility] Ammonia level (02/01/2018 6:25 AM) Ammonia 28 16 - 60 umol/L [facility] DEPARTMENT OF PATHOLOGY AND [facility] Specimen Plasma specimen Performing Organization Address [facility] Phone Number [facility] DEPARTMENT OF PATHOLOGY [address] [facility] [place] [address] AND webtide [facility] Gastrointestinal panel (01/31/2018 9:30 PM) Gastrointestinal panel Negative for all pathogens tested: [facility] DEPARTMENT OF Negative for Salmonella PATHOLOGY AND [...] Specimen Stool - Nonpreserved Performing Organization Address [facility] Phone Number [facility] DEPARTMENT OF PATHOLOGY AND [address] [place] [address] webtide MEDICINE PV duplex venous lower extremity (01/31/2018 [...] IMPRESSION: No evidence of deep venous thrombosis. [facility]-[id number] Procedure Note Interface, Radiology Results Incoming - [...] IMPRESSION: No evidence of deep venous thrombosis. [facility]-[id number] Performing Organization Address City/[facility]/Zipcode Phone Number [facility] [address] [place] [address] Lactic acid level, SEPSIS - Now and repeat 2x every 3 hours (01/31/2018 8:40 PM )Only the most recent of3 resultswithin the time period is included. Lactic acid 1.0 0.5 - 2.2 mmol/L [facility] DEPARTMENT OF PATHOLOGY AND [facility] MEDICINE Specimen Plasma specimen Performing Organization Address [facility] Phone Number [facility] DEPARTMENT OF PATHOLOGY [address] [place] [address]. [place] [address] AND [facility] Uric acid level (01/31/2018 5:58 PM) Uric acid 8.1 (H) 3.4 - 7.0 mg/dL [facility] DEPARTMENT OF PATHOLOGY AND GENOMIC MEDICINE Specimen Plasma specimen Performing Organization Address [facility]/Zipcode Phone Number [facility] DEPARTMENT OF PATHOLOGY [address] [place] [address]. [place] [address] AND [facility] Thyroid stimulating hormone (01/31/2018 5:58 PM) TSH 4.17 0.27 - 4.20 uIU/mL [facility] DEPARTMENT OF PATHOLOGY AND [facility] MEDICINE Specimen Plasma specimen Performing Organization Address City/[facility]/Zipcode Phone Number [facility] DEPARTMENT OF PATHOLOGY [address] [place] [address]. [place] [address] AND GENOMIC MEDICINE XR Chest 1 Vw Portable (01/31/2018 2:43 PM) Narrative Performed At EXAMINATION:XR CHEST 1 VW PORTABLE HM [facility] CLINICAL HISTORY:Cough, evaluation for pneumonia COMPARISON:Chest x-ray 07/01/2002 IMPRESSION: Single frontal view reveals a stable cardiomediastinal silhouette. Lungs are clear. Pleural margins are sharp. The remainder of the examination is unchanged. [facility]-[id number] Procedure Note Hm Interface, Radiology Results Incoming - 01/31/2018 2:49 PM CDT EXAMINATION: XR CHEST 1 VW PORTABLE CLINICAL HISTORY: Cough, evaluation for pneumonia COMPARISON: Chest x-ray 07/01/2002 IMPRESSION: Single frontal view reveals a stable cardiomediastinal silhouette. Lungs are clear. Pleural margins are sharp. The remainder of the examination is unchanged. [facility]-[id number] Performing Organization Address City/State/Zipcode Phone Number [facility] [address] [place] [phone] Blood culture, aerobic & anaerobic (01/31/2018 2:39 PM)Only the most recent of2 resultswithin the time period is included. Blood culture isolate No growth after 5 days of incubation. [facility] DEPARTMENT OF Comment: PATHOLOGY AND GENOMIC Specimen Information MEDICINE Specimen Source: Blood Specimen Site: Antecubital, right Specimen Blood - Antecubital, right Performing Organization Address City/[facility] Phone Number [facility] DEPARTMENT OF PATHOLOGY AND [address] [place] [address] [facility] Group A strep, rapid antigen (01/31/2018 2:32 PM) Group A strep, rapid Negative for Group A Streptococcus antigen. [facility] DEPARTMENT OF antigen result Comment: PATHOLOGY AND GENOMIC Specimen Information MEDICINE Specimen Source: Throat Specimen Site: Not otherwise specified Specimen Throat - Not otherwise specified Performing Organization Address City/State/Zipcode Phone Number [facility] DEPARTMENT OF PATHOLOGY [address] [place] [address] AND webtide [facility] Strep screen culture (01/31/2018 2:32 PM) Strep screen culture No beta hemolytic Streptococci isolated [facility] DEPARTMENT OF isolate Comment: PATHOLOGY AND GENOMIC Specimen Information MEDICINE Specimen Source: Throat Specimen Site: Not otherwise specified Specimen Throat - Not otherwise specified Performing Organization Address City/[facility]/Zipcode Phone Number [facility] DEPARTMENT OF PATHOLOGY AND [address] [place] [address], [place] [phone] [place] [address] Respiratory pathogen panel (01/31/2018 2:30 PM) Respiratory pathogen Negative for all pathogens tested: [facility] DEPARTMENT OF panel Negative for Adenovirus PATHOLOGY [...] Left Performing Organization Address City/State/Zipcode Phone Number [facility] DEPARTMENT OF PATHOLOGY AND [address] [place] [address] Influenza antigen (01/31/2018 2:30 PM) Influenza antigen Negative for Influenza A/B antigen. [facility] DEPARTMENT OF PATHOLOGY Comment: AND [facility] Specimen Information Specimen Source: Nares Specimen Site: Left Specimen Nares - Left Performing Organization Address City/State/Zipcode Phone Number [facility] DEPARTMENT OF PATHOLOGY [phone] [place] [address] [facility] CT Head Wo Contrast (01/31/2018 2:27 PM) [...] is needed, MRI imaging should be considered. [id number] Procedure Note Interface, Radiology Results Incoming - [...] is needed, MRI imaging should be considered. [id number] Performing Organization Address City/State/Zipcode Phone Number [phone] [place] [address] POC panel 4 (11/07/2017 7:44 AM) POC sodium 141 135 - 148 meq/L [facility] DEPARTMENT OF PATHOLOGY AND GENOMIC MEDICINE POC potassium 4.8 3.5 - 5.0 meq/L [facility] DEPARTMENT OF PATHOLOGY AND GENOMIC MEDICINE POC hematocrit 33 (L) 41 - 51 % [facility] DEPARTMENT OF PATHOLOGY AND GENOMIC MEDICINE POC glucose 65 65 - 99 mg/dL [facility] DEPARTMENT OF PATHOLOGY AND GENOMIC MEDICINE POC hemoglobin 11.2 (L) 14.0 - 18.0 g/dL [facility] DEPARTMENT OF PATHOLOGY AND GENOMIC MEDICINE Specimen Blood Performing Organization Address City/State/Zipcode Phone Number [facility] DEPARTMENT OF PATHOLOGY [address] [facility] [place] [address] AND GENOMIC MEDICINE after 07/20/2017 Insurance Payer Benefit Plan / Group Subscriber ID Type Phone Address BCBS BCBS CHOICE PPO/FEDERAL EMPL PPO xxxxxxxxxxxx PPO MEDICARE MEDICARE PART A AND B xxxxxxxxxx Medicare [place], [place] Home: [address] [phone] [address] MARNIE LYLES Transplant Self 1960 Home: [address] [phone] [address]
[2018-07-21 16:42] LABS: Absolute Lymphocytes (CBC) 1.3 K/uL (0.7-4.9); Absolute Monocytes 0.5 K/uL (0.1-1.3); Absolute Neutrophil 4.3 K/uL (1.8-8.0); Basophils % 1.4 % (0-1.3); Eosinophils % 6.1 % (0-4.4); Hematocrit 25.2 % (39.6-49.0); Lymphocytes % 20.3 % (15.3-44.8); MCH 28.1 pg (27.0-35.0); MCV 82.9 fL (80-100); MPV 7.2 fL (7.6-11.3); Monocytes % 7.3 % (3.3-12.3); RBC Red Blood Cell Count 3.04 M/uL (4.33-5.43)
[2018-07-21 16:47] LABS: Potassium 3.8 mmol/L (3.5-5.1)
--- NOTE | 2018-07-21 18:04 | RAD REPORT ---
EXAM DESCRIPTION: CT - Abdomen Pelvis Wo Contrast - 07/21/2018 5:34 pm CLINICAL HISTORY: Abdominal pain COMPARISON: January 2018 TECHNIQUE: Computed axial tomography of the abdomen and pelvis was obtained. IV contrast was not req uested. All CT scans are performed using dose optimization technique as appropriate and may include automated exposure control or mA/KV adjustment according to patient size. FINDINGS: The evaluation of solid organs, and vessels is limited secondary to the lack of contrast administration. The liver, spleen, pancreas, adrenals and kidneys appear grossly normal. The gallbladder has been rem brennan There is no evidence of diverticulitis. Small umbilical hernia is seen. Small right inguinal hernia i s present A dialysis catheter has its tip within the lower pelvis. Small amount of ascites is present. IMPRESSION: No acute abnormality is displayed.
--- NOTE | 2018-07-21 18:05 | EDPHYS ---
Physician Documentation [facility] Name: Wade Koehler Age: 58 yrs Sex: Male : 1960 Arrival Date: 07/21/2018 Time: 14:41 Bed 30 Private MD: Dante Best V ED Physician Tahir Reid HPI: 07/21 16:46 This 58 yrs old Male presents to ER via Ambulatory with complaints of Blood jr8 Transfusion. 16:46 Patient with history of ESRD. Was sent over to ED by Dr. Best for blood transfusion jr8 for low H/H. Stated that before being discharged this past week they had transfused him an had a possible reaction to the blood. Onset: The symptoms/episode began/occurred chronic condition. Severity of symptoms: At their worst the symptoms were very mild in the emergency department the symptoms are unchanged. It is unknown whether or not the patient has had similar symptoms in the past. The patient has been recently seen by a physician:. Currently without weakness, fatigue, pallor, shortness of breath, or any other s/s . Historical: - Allergies: 14:56 NKA; aj - Home Meds: 14:56 bumetanide 2 mg Oral tab 1 tab 2 times per day [Active]; bumetanide 2 mg Oral tab 1 tab aj 2 times per day [Active]; carvedilol 6.25 mg Oral tab 1 tab daily [Active]; duloxetine 30 mg Oral cpDR 1 cap once daily [Active]; gabapentin 600 mg Oral tab 1 tab twice a day [Active]; hydralazine 100 mg Oral tab 1 tab 3 times per day [Active]; Lantus Sub-Q daily [Active]; losartan 100 mg Oral tab 1 tab once daily [Active]; Lyrica 25 mg Oral 4 caps daily [Active]; metolazone 5 mg Oral tab 2 tabs twice daily [Active]; metoprolol succinate 50 mg Oral Tb24 1 tab once daily [Active]; nifedipine 60 mg Oral TbER 1 tab once daily [Active]; sevelamer HCl Oral 4 tabs with meals [Active]; - PMHx: 14:56 Diabetes - IDDM; Dialysis; at home seven days a week'; ESRD; Hypertension; PERIPHERAL aj NEUROPATHY; - PSHx: 14:56 Cholecystectomy; Right toe amputation; Appendectomy; aj - Immunization history:: Adult Immunizations up to date. - Social history:: Smoking status: Patient/guardian denies using tobacco. - Ebola Screening: : Patient negative for fever greater than or equal to 101.5 degrees Fahrenheit, and additional compatible Ebola Virus Disease symptoms Patient denies exposure to infectious person Patient denies travel to an Ebola-affected area in the 21 days before illness onset No symptoms or risks identified at this time. ROS: 16:46 Eyes: Negative for injury, pain, redness, and discharge, ENT: Negative for injury, jr8 pain, and discharge, Neck: Negative for injury, pain, and swelling, Cardiovascular: Negative for chest pain, palpitations, and edema, Respiratory: Negative for shortness of breath, cough, wheezing, and pleuritic chest pain, Abdomen/GI: Negative for abdominal pain, nausea, vomiting, diarrhea, and constipation, Back: Negative for injury and pain, MS/Extremity: Negative for injury and deformity, Skin: Negative for injury, rash, and discoloration, Neuro: Negative for headache, weakness, numbness, tingling, and seizure. Exam: 16:46 Eyes: Pupils equal round and reactive to light, extra-ocular motions intact. Lids and jr8 lashes normal. Conjunctiva and sclera are non-icteric and not injected. Cornea within normal limits. Periorbital areas with no swelling, redness, or edema. ENT: Nares patent. No nasal discharge, no septal abnormalities noted. Tympanic membranes are normal and external auditory canals are clear. Oropharynx with no redness, swelling, or masses, exudates, or evidence of obstruction, uvula midline. Mucous membranes moist. Neck: Trachea midline, no thyromegaly or masses palpated, and no cervical lymphadenopathy. Supple, full range of motion without nuchal rigidity, or vertebral point tenderness. No Meningismus. Cardiovascular: Regular rate and rhythm with a normal S1 and S2. No gallops, murmurs, or rubs. Normal PMI, no JVD. No pulse deficits. Respiratory: Lungs have equal breath sounds bilaterally, clear to auscultation and percussion. No rales, rhonchi or wheezes noted. No increased work of breathing, no retractions or nasal flaring. Abdomen/GI: Soft, non-tender, with normal bowel sounds. No distension or tympany. No guarding or rebound. No evidence of tenderness throughout. Back: No spinal tenderness. No costovertebral tenderness. Full range of motion. Skin: Warm, dry with normal turgor. Normal color with no rashes, no lesions, and no evidence of cellulitis. MS/ Extremity: Pulses equal, no cyanosis. Neurovascular intact. Full, normal range of motion. Neuro: Awake and alert, GCS 15, oriented to person, place, time, and situation. Cranial nerves II-XII grossly intact. Motor strength 5/5 in all extremities. Sensory grossly intact. Cerebellar exam normal. Normal gait. Vital Signs: 14:56 BP 147 / 79; Pulse 74; Resp 20; Temp 98.8; Pulse Ox 90% on R/A; Weight 97.07 kg; Height aj 5 ft. 9 in. (175.26 cm); 16:01 BP 153 / 73; Pulse 69; Resp 18; Pulse Ox 98% on R/A; Pain 0/10; mg2 17:15 BP 139 / 74; Pulse 67; Resp 18; Pulse Ox 96% ; mg2 18:00 BP 130 / 78; Pulse 70; Resp 18; Pulse Ox 100% on R/A; mg2 14:56 Body Mass Index 31.60 (97.07 kg, 175.26 cm) aj MDM: 15:25 Patient medically screened. jr8 16:59 Data reviewed: vital signs, nurses notes, lab test result(s). jr8 17:06 Data interpreted: Pulse oximetry: on room air is 98 %. Interpretation: normal. jr8 Counseling: I had a detailed discussion with the patient and/or guardian regarding: the historical points, exam findings, and any diagnostic results supporting the discharge/admit diagnosis, lab results, radiology results. ED course: Patients Hemoglobin is 8.5. Patient is chronic renal patient. No active bleeding. No indication to transfuse at this point. I called Dr. Alegre who is his dish network installer and discussed this with him as well since Dr. Best had called him earlier. He agrees that transfusion should not be done at this time but wants us to do CT to r/o any other intraabdominal processes. Left message with Dr. Best to call us back as well . 18:02 ED course: Got a hold of Dr. Best. Agrees patient can go home . jr8 07/21 16:09 Order name: CBC with Diff; Complete Time: 16:59 jr8 07/21 16:09 Order name: Basic Metabolic Panel; Complete Time: 16:59 jr8 07/21 16:09 Order name: IV; Complete Time: 16:15 jr8 07/21 16:09 Order name: T\T\S; Complete Time: 06:07 jr8 07/21 17:03 Order name: CT Abd/Pelvis - Without Cont; Complete Time: 18:05 8 Administered Medications: No medications were administered Disposition: 07/21/18 18:04 Discharged to Home. Impression: Chronic kidney disease (CKD), Anemia in chronic kidney disease. - Condition is Stable. - Discharge Instructions: Anemia, Nonspecific, Blood Transfusion, Adult, Chronic Kidney Disease, Adult. - Medication Reconciliation Form, Thank You Letter, Antibiotic Education, Prescription Opioid Use form. - Follow up: Dante Best MD; When: 2 - 3 days; Reason: Recheck today's complaints, Continuance of care, Re-evaluation by your physician. - Problem is new. - Symptoms have improved. Addendum: 07/30/2018 11:25 Co-signature as Attending Physician, Tahir Reid MD. g s Signatures: Dispatcher [employer] Sigrid Mckinley RN RN Jose Antonio Genao PA PA jr8 Tahir Reid MD MD Mahamed Doe RN RN mg2 Corrections: (The following items were deleted from the chart) 07/21 18:17 18:04 07/21/2018 18:04 Discharged to Home. Impression: Chronic kidney disease (CKD); mg2 Anemia in chronic kidney disease. Condition is Stable. Forms are Medication Reconciliation Form, Thank You Letter, Antibiotic Education, Prescription Opioid Use. Follow up: Dante Best; When: 2 - 3 days; Reason: Recheck today's complaints, Continuance of care, Re-evaluation by your physician. Problem is new. Symptoms have improved. jr8
--- NOTE | 2018-07-21 18:05 | ER ---
Nurse's Notes [facility] Name: Wade Koehler Age: 58 yrs Sex: Male : 1960 Arrival Date: 07/21/2018 Time: 14:41 Bed 30 Private MD: Dante Best V Diagnosis: Chronic kidney disease (CKD);Anemia in chronic kidney disease Presentation: 07/21 14:52 Presenting complaint: Patient states: Sent by Dr Best for blood transfusion after aj patient reports having transfusion "reaction" 6 days ago. Transition of care: patient was not received from another setting of care. Onset of symptoms was July 15, 2018. Risk Assessment: Do you want to hurt yourself or someone else? Patient reports no desire to harm self or others. Initial Sepsis Screen: Does the patient meet any 2 criteria? No. Patient's initial sepsis screen is negative. Does the patient have a suspected source of infection? No. Patient's initial sepsis screen is negative. Care prior to arrival: None. 14:52 Method Of Arrival: Ambulatory 14:52 Acuity: WILFREDO 3 aj Triage Assessment: 14:56 General: Appears in no apparent distress. comfortable, Behavior is calm, cooperative, aj appropriate for age. Pain: Denies pain. Neuro: Level of Consciousness is awake, alert, obeys commands, Oriented to person, place, time, situation, Appropriate for age. Respiratory: Airway is patent Respiratory effort is even, unlabored, Respiratory pattern is regular, symmetrical. GI: Peritoneal dialysis catheter capped. Site is clean and dry. Derm: Skin is intact, is healthy with good turgor, Skin is pink, warm \\T\\ dry. normal. Historical: - Allergies: 14:56 NKA; aj - Home Meds: 14:56 bumetanide 2 mg Oral tab 1 tab 2 times per day [Active]; bumetanide 2 mg Oral tab 1 tab aj 2 times per day [Active]; carvedilol 6.25 mg Oral tab 1 tab daily [Active]; duloxetine 30 mg Oral cpDR 1 cap once daily [Active]; gabapentin 600 mg Oral tab 1 tab twice a day [Active]; hydralazine 100 mg Oral tab 1 tab 3 times per day [Active]; Lantus Sub-Q daily [Active]; losartan 100 mg Oral tab 1 tab once daily [Active]; Lyrica 25 mg Oral 4 caps daily [Active]; metolazone 5 mg Oral tab 2 tabs twice daily [Active]; metoprolol succinate 50 mg Oral Tb24 1 tab once daily [Active]; nifedipine 60 mg Oral TbER 1 tab once daily [Active]; sevelamer HCl Oral 4 tabs with meals [Active]; - PMHx: 14:56 Diabetes - IDDM; Dialysis; at home seven days a week'; ESRD; Hypertension; PERIPHERAL aj NEUROPATHY; - PSHx: 14:56 Cholecystectomy; Right toe amputation; Appendectomy; aj - Immunization history:: Adult Immunizations up to date. - Social history:: Smoking status: Patient/guardian denies using tobacco. - Ebola Screening: : Patient negative for fever greater than or equal to 101.5 degrees Fahrenheit, and additional compatible Ebola Virus Disease symptoms Patient denies exposure to infectious person Patient denies travel to an Ebola-affected area in the 21 days before illness onset No symptoms or risks identified at this time. Screenin:34 Abuse screen: Denies threats or abuse. Denies injuries from another. Nutritional mg2 screening: No deficits noted. Tuberculosis screening: No symptoms or risk factors identified. Fall Risk Secondary diagnosis (15 points) anemia. Assessment: 15:34 General: Appears in no apparent distress. comfortable, Behavior is calm, cooperative. mg2 Pain: Denies pain. Neuro: Level of Consciousness is awake, alert, obeys commands, Oriented to person, place, time, situation. Cardiovascular: Capillary refill < 3 seconds Patient's skin is warm and dry. Respiratory: Airway is patent Respiratory effort is even, unlabored, Respiratory pattern is regular, symmetrical. GI: Abdomen is round on peritoneal dialysis. : No signs and/or symptoms were reported regarding the genitourinary system. EENT: No signs and/or symptoms were reported regarding the EENT system. Derm: Skin is intact, is healthy with good turgor, Skin is pale. Musculoskeletal: Circulation, motion, and sensation intact. Capillary refill < 3 seconds. 17:34 Reassessment: Patient appears in no apparent distress at this time. Patient and/or mg2 family updated on plan of care and expected duration. Pain level reassessed. Patient is alert, oriented x 3, equal unlabored respirations, skin warm/dry/pink. patient sent to ct scan. Vital Signs: 14:56 BP 147 / 79; Pulse 74; Resp 20; Temp 98.8; Pulse Ox 90% on R/A; Weight 97.07 kg; Height aj 5 ft. 9 in. (175.26 cm); 16:01 BP 153 / 73; Pulse 69; Resp 18; Pulse Ox 98% on R/A; Pain 0/10; mg2 17:15 BP 139 / 74; Pulse 67; Resp 18; Pulse Ox 96% ; mg2 18:00 BP 130 / 78; Pulse 70; Resp 18; Pulse Ox 100% on R/A; mg2 14:56 Body Mass Index 31.60 (97.07 kg, 175.26 cm) aj ED Course: 14:41 Patient arrived in ED. mr 14:41 Dante Best MD is Private Physician. mr 14:54 Triage completed. aj 14:56 Arm band placed on left wrist. Patient placed in an exam room. aj 15:25 Jose Antonio Strong PA is PHCP. jr8 15:25 Tahir Reid MD is Attending Physician. jr8 15:27 Mahamed Doe, JAYDE is Primary Nurse. mg2 15:37 Patient has correct armband on for positive identification. Bed in low position. Call mg2 light in reach. Side rails up X 1. Pulse ox on. NIBP on. Door closed. Warm blanket given. 16:22 Inserted saline lock: 18 gauge in left antecubital area, using aseptic technique. Blood cb2 collected. 17:32 CT completed. Patient moved to CT via wheelchair. Patient moved back from CT. cw1 17:33 CT Abd/Pelvis - Without Cont In Process Unspecified. EDMS 18:02 Dante Best MD is Referral Physician. jr8 18:16 No provider procedures requiring assistance completed. IV discontinued, intact, mg2 bleeding controlled, No redness/swelling at site. Pressure dressing applied. Administered Medications: No medications were administered Outcome: 18:04 Discharge ordered by . jr8 18:17 Discharged to home ambulatory, with family. mg2 18:17 Condition: stable 18:17 Discharge instructions given to patient, family, Instructed on discharge instructions, follow up and referral plans. Demonstrated understanding of instructions, follow-up care. 18:17 Patient left the ED. mg2 Signatures: Dispatcher [employer] EDUT Sigrid Bond RN RN aj Rivera, Mary mr Woodley, Crystal cw1 Jose Antonio Strong, ARGELIA PA jr8 Clyde Maurice cb2 Mahamed Doe, JAYDE RN mg2
[2018-07-21 18:47] VITALS: TEMP 98.8
[2018-07-21 18:51] VITALS: BP 130/78; O2SAT 100
== END 2018-07-21 18:17 | disposition home or self-care (01) ==
LOC: ER 14:37
DX: N18.6 End stage renal disease (principal); D63.1 Anemia in chronic kidney disease; I10 Essential (primary) hypertension; E11.9 Type 2 diabetes mellitus without complications; Z79.4 Long term (current) use of insulin; Z99.2 Dependence on renal dialysis
CPT/HCPCS: 36415; 74176; 80048; 85025; 86850; 86900; 86901; 99284

== ENCOUNTER 2018-07-23 10:01 | Emergency (ER) | payer BC, OTHER ==
--- OUTSIDE RECORDS SUMMARY | 2018-07-23 10:04 | XMS REPORT | Clinical Summary ---
:1960 Author Organization [facility] Address [address] [place] [address] Care Team Providers Name Role Phone Dante [...] 11/03/2017 Anesthesia Event General Surgery Shirley Prajapati, HEDGE TRIMMER 11/02/2017 Pre-Admit Testing Pre-Admission Abel, Preop testing Appointment Testing Julio Lilly MD (Primary Dx) 11/02/2017 Office Visit General Surgery Abel, End-stage renal Julio Lilly MD disease (Primary Dx) after 07/22/2017 Family History Medical History Relation Name Comments [...] INFLUENZA VACCINE 04/25/2018 Implants Implanted Type Area Special Needs Teacher Device Expiration Model / Identifier Date Serial / Lot Manoj Stylet Stylet / N/A: N/A MEDIONICS 07/24/2021 [id number] / Implanted: Qty: 1 on 11/07/2017 by Julio Roman MD [employer], [id number] / [id number] Catheter 19.5cm Peritoneal Dialysis Extended - [id number] Surgical N/A: N/A 08/24/2022 SNPS [id number] / Implanted: 11/07/2017 (Quantity not on file) Implants; / Expanders; [id number] Extenders; Surgical Wires Procedures Procedure Name Priority [...] are in SPECTRAL COLOR DOPPLER the results (71481) section. ECG 12-LEAD Routine 05/31/2018 1:42 ESRD [...] Routine 11/07/2017 9:20 Results for this AM ASSISTANT AT SURGERY procedure are in the results section. DE AN ELECTIVE Routine 11/07/2017 8:17 ENDOTRACHEAL AIRWAY AM ASSISTANT AT SURGERY Procedure Note - Clovis Martel CRNA - 11/07/2017 8:17 AM ASSISTANT AT SURGERY Airway Date/Time: 11/07/2017 8:05 AM Performed by: CLOVIS MARTEL Authorized by: CIERRA SEO Location: OR Urgency: Elective Difficult Airway: No Anesthesiologist: CIERRA SEO Resident/PREPARER/AA: CLOVIS MARTEL Performed by: resident/PREPARER/AA Preoxygenated with 100% O2: Yes C-spine Precautions [...] Routine 11/07/2017 7:48 AM Results for this ASSISTANT AT SURGERY procedure are in the results section. POC PANEL 4 Routine 11/07/2017 7:44 AM Results for this ASSISTANT AT SURGERY procedure are in the results section. ZZESTIMATED GFR STAT 11/07/2017 7:40 AM Results for this ASSISTANT AT SURGERY procedure are in the results section. BASIC METABOLIC PANEL STAT 11/07/2017 7:40 AM Results for this ASSISTANT AT SURGERY procedure are in the results section. ECG 12-LEAD Routine 11/02/2017 4:21 PM Preop testing Results for this ASSISTANT AT SURGERY procedure are in the results section. HC COMPLETE BLD COUNT Routine 11/02/2017 4:09 PM Preop testing Results for this W/AUTO DIFF ASSISTANT AT SURGERY procedure are in the results section. after 07/22/2017 Results US Renal (05/31/2018 4:40 PM) Narrative [...] IMPRESSION: Findings consistent with medical renal disease. [facility]-[id number] Procedure Note Interface, Radiology Results Incoming - [...] IMPRESSION: Findings consistent with medical renal disease. [facility]-[id number] Performing Organization Address City/State/Zipcode Phone Number [facility] [address] [place] [address] XR Chest 2 Vw (05/31/2018 4:22 PM) [...] in the minor fissure. No focal consolidation. [id number] Procedure Note Interface, Radiology Results Incoming - [...] in the minor fissure. No focal consolidation. [id number] Performing Organization Address City/State/Zipcode Phone Number [facility] [address] [facility] [place] [address] Echocardiogram complete w contrast and 3D if needed (05/31/2018 3:46 PM) Narrative Performed At [facility] Echocardiography Report [address] [facility], [facility] [address], [place] [address] Pat.Name:MARNIE LYLES WPat.ID:[id number] .Date: 05/31/2018Refer.MD:ALICIA CORTEZ MD Exam Time: 2:14:00 PMStudy Type:Routine Echo Height:69inWeight: 223lb BSA: 2.17 m2 DOBAge:1960,57Y Sex: MALEBP:181/82 HR:76 bpm Sonogrphr: Marielos Middleton RDCS, Jenn Taylor Pat. Stat.:OutpatientStudy Status:Final Echo Event ID:[id number] Order ID:[id number] Reason for Study:Renal Transplant Evaluation Dx,ESRD (end [...] RAPof 10 mmHg. MEASUREMENTS: 2D Parasternal Long [place] LVOT 1.8 cmLA Ds4.6 cm LVIDd6 cmIndex2.8 cm/m Ao An1.8 cm LVIDs4.2 cmAo Rtd 3.4 cm Index1.6 cm/m LV%fs 29.4 % LV Eqqs916.3 g(122-174) IVSd 1.1 cmLVM Osodr272.4 g/m2 LVPWd1.4 cmRWT0.5 Right Ventricle RVIDd4.3 cm (2.6-4.3) LA Sng Plane LA Area 25.7 cm2(8.8-23.4) LA Vol82.6 ml Index38.1 ml/m LA LngAx 6.6 cm RA Sng Plane RA Area 22 cm2(8.3-19.5) RA Vol68.4 ml Index31.5 ml/m RA LngAx 5.9 cm Ascending Aorta Asce Dim 2.8 cm DOPPLER LVOT Stroke Vol LVOT 1.8 cmLVOT CO5.9 l/min LVOT TVI30.6 cmLVOT CI2.7 l/m/m2 LVOT Tm361 sppsCF00 bpm LVOT SV 78 ml MV E/A [...] 06/01/2018 1:20 PM CDT Echocardiography Report [address] [facility], [place] [address], [place] [address] Pat.Name: MARNIE LYLES Pat.ID: [id number] .Date: 05/31/2018 Refer.MD: ALICIA CORTEZ MD Exam Time: 2:14:00 PM Study Type:Routine Echo Height: 69in Weight: 223lb BSA: 2.17 m2 Age: 8 1960,57Y Sex: MALE BP: 181/82 HR: 76 bpm Sonogrphr: Marielos Middleton RDCS, Jenn Taylor Pat. Stat.:Outpatient Study Status:Final Echo Event ID:[id number] Order ID: [id number] Reason for Study:Renal Transplant Evaluation Dx,ESRD (end [...] of 10 mmHg. MEASUREMENTS: 2D Parasternal Long [place] LVOT 1.8 cm LA Ds 4.6 cm [...] PM Edward Liao M.D. Performing Organization Address [facility] Phone Number [facility] [address] [place] [address] EKG 12-LEAD (05/31/2018 1:42 PM)Only the most recent of2 resultswithin the time period is included. Ventricular rate 79 [facility] MUSE Atrial rate 79 [facility] MUSE DE interval 158 [facility] MUSE QRSD interval 82 [facility] MUSE QT interval 424 [facility] MUSE QTC interval 486 [facility] MUSE P axis 1 49 [facility] MUSE QRS axis 1 29 [facility] MUSE T wave axis 69 [facility] MUSE EKG impression Normal sinus rhythm-Possible Left atrial enlargement-Anterior infarct (cited on or before 02-NOV-2017)-Abnormal ECG-In automated comparison with ECG of 02-NOV-2017 16:21,-Nonspecific T wave abnormality [facility] MUSE now evident in Lateral leads- Performing Organization Address [facility] Phone Number [facility] MUSE [address] [place] [address] Syphilis treponemal IgG (05/10/2018 10:45 AM) Syphilis treponemal IgG Non-reactiveComment: Non-reactive [facility] DEPARTMENT OF Non-reactive: No PATHOLOGY AND GENOMIC serological evidence of MEDICINE Syphilis infection Specimen Serum Performing Organization Address [facility] Phone Number [facility] DEPARTMENT OF PATHOLOGY AND [address] [place] [address] GENOMIC MEDICINE Urinalysis screen and microscopy, with reflex to culture (05/10/2018 10:45 AM) Specimen site Clean catch [facility] DEPARTMENT OF PATHOLOGY AND GENOMIC MEDICINE Color, UA Straw [facility] DEPARTMENT OF PATHOLOGY AND GENOMIC MEDICINE Appearance, UA Clear [facility] DEPARTMENT OF PATHOLOGY AND GENOMIC MEDICINE Specific gravity, UA 1.011 1.001 - 1.035 [facility] DEPARTMENT OF PATHOLOGY AND GENOMIC MEDICINE pH, UA 7.0 5.0 - 8.5 [facility] DEPARTMENT OF PATHOLOGY AND GENOMIC MEDICINE Protein, UA 3+ (A) Negative [facility] DEPARTMENT OF PATHOLOGY AND GENOMIC MEDICINE Glucose, UA 2+ (A) Negative [facility] DEPARTMENT OF PATHOLOGY AND GENOMIC MEDICINE Ketones, UA Negative Negative [facility] DEPARTMENT OF PATHOLOGY AND GENOMIC MEDICINE Bilirubin, UA Negative Negative [facility] DEPARTMENT OF PATHOLOGY AND GENOMIC MEDICINE Blood, UA Moderate (A) Negative [facility] DEPARTMENT OF PATHOLOGY AND GENOMIC MEDICINE Nitrite, UA Negative Negative [facility] DEPARTMENT OF PATHOLOGY AND GENOMIC MEDICINE Urobilinogen, UA <2.0 <2.0 [facility] DEPARTMENT OF PATHOLOGY AND GENOMIC MEDICINE Leukocyte esterase, UA Negative Negative [facility] DEPARTMENT OF PATHOLOGY AND GENOMIC MEDICINE Round epithelial cells, UA <1 0 - 1 /HPF [facility] DEPARTMENT OF PATHOLOGY AND GENOMIC MEDICINE WBC, UA 11 (H) 0 - 1 /HPF [facility] DEPARTMENT OF PATHOLOGY AND GENOMIC MEDICINE RBC, UA 85 (H) 0 - 5 /HPF [facility] DEPARTMENT OF PATHOLOGY AND GENOMIC MEDICINE Bacteria, UA Few None seen [facility] DEPARTMENT OF PATHOLOGY AND GENOMIC MEDICINE Yeast, UA None seen [facility] DEPARTMENT OF PATHOLOGY AND GENOMIC MEDICINE Yeast with pseudohyphae, UA None seen [facility] DEPARTMENT OF PATHOLOGY AND GENOMIC MEDICINE Specimen Urine Performing Organization Address City/[facility] Phone Number [facility] DEPARTMENT OF PATHOLOGY AND [address] [place] [address] HIV Ag/Ab combination (05/10/2018 10:45 AM) HIV Ag/Ab combination Non-reactive Non-reactive [facility] DEPARTMENT OF PATHOLOGY AND GENOMIC MEDICINE Specimen Blood Performing Organization Address City/[facility]/Zipcode Phone Number [facility] DEPARTMENT OF PATHOLOGY AND [address] [place] [address] [facility] TB T-SPOT (05/10/2018 10:45 AM) TB T-SPOT SEE NOTE [facility] DEPARTMENT OF PATHOLOGY Comment: AND GENOMIC [...] FOR USE WITH T=SPOT.TB TEST. Performed by: [facility] Molecular Tuberculosis Laboratory [facility] ([id number]) [place], [place] [address] Specimen Blood Performing Organization Address [facility] Phone Number [facility] DEPARTMENT OF PATHOLOGY AND [address] Nicotine and metabolites, serum (05/10/2018 10:45 AM) Nicotine <2.0 0.0 - 2.0 ng/mL [facility] DEPARTMENT OF PATHOLOGY AND GENOMIC MEDICINE Cotinine 2.7 (H) 0.0 - 2.0 ng/mL [facility] DEPARTMENT OF PATHOLOGY AND GENOMIC MEDICINE 1-QR-gwjhwtbt <5.0 0.0 - 5.0 ng/mL [facility] DEPARTMENT OF Comment: PATHOLOGY AND GENOMIC This test was developed and its performance characteristics determined by MEDICINE the Department of Pathology and Genomic Medicine, [facility]. Serum nicotine and its metabolites cotinine and 6-KD-ovhfbfwv are tested by HPLC tandem mass spectrometry. It has not been cleared or approved by FDA. The laboratory is regulated under CLIA as qualified to perform high-complexity testing. This test is used for clinical purposes. It should not be regarded as investigational or for research. Specimen Blood Performing Organization Address [facility] Phone Number [facility] DEPARTMENT OF PATHOLOGY AND [address] [place] [address] Hepatitis B surface Ab, quantitative (05/10/2018 10:45 [...] Cellular and Tissue-Based Products (HCT/P). Performed by [facility], [address] [place], [place] [id number] [email or web address], Cam Sauceda MD - Lab. Director Specimen Serum Performing Organization Address City/[facility]/Zipcode Phone Number [facility] [address] [place] [address] Estimated GFR (05/10/2018 10:45 AM)Only the most recent of7 resultswithin the time period is included. GFR Non Af Amer 5 (A) mL/min/1.73 m2 [facility] DEPARTMENT OF PATHOLOGY AND GENOMIC MEDICINE GFR Af Amer 6 (A) mL/min/1.73 m2 [facility] DEPARTMENT OF Comment: PATHOLOGY AND GENOMIC [...] specimen Performing Organization Address City/State/Zipcode Phone Number [facility] DEPARTMENT OF PATHOLOGY AND [address] [place] [address] [facility] Hepatitis C antibody (05/10/2018 10:45 AM) Hepatitis C Ab Non-reactive Non-reactive [facility] DEPARTMENT OF PATHOLOGY AND [facility] Specimen Blood Performing Organization Address City/State/Zipcode Phone Number [facility] DEPARTMENT OF PATHOLOGY AND [address] Hepatitis A antibody total (05/10/2018 10:45 AM) Hepatitis A total Ab Non-reactive Non-reactive [facility] DEPARTMENT OF PATHOLOGY AND [facility] Specimen Blood Performing Organization Address City/State/Zipcode Phone Number [facility] DEPARTMENT OF PATHOLOGY AND [address] [place] [address] [facility] Drug alvarez 9, ser/mookie, scrn [...] use. Test developed and characteristics determined by [facility]. See Compliance Statement B: Jib[employer]/CS Performed by [facility], [address] [place] [address] [email or web address], Cam Sauceda MD - Lab. Director Specimen Serum Performing Organization Address City/[facility] Phone Number [facility] [address] [place] [address] ABORh - transplant (05/10/2018 10:45 AM) ABO grouping O [facility] DEPARTMENT OF PATHOLOGY AND GENOMIC MEDICINE Rh type POS [facility] DEPARTMENT OF PATHOLOGY AND GENOMIC MEDICINE Specimen Blood Performing Organization Address City/[facility] Phone Number [facility] DEPARTMENT OF PATHOLOGY AND [address] [place] [address] Hepatitis B core antibody total (05/10/2018 10:45 AM) Hepatitis B core total Ab Non-reactive Non-reactive [facility] DEPARTMENT OF PATHOLOGY AND GENOMIC MEDICINE Specimen Blood Performing Organization Address City/[facility] Phone Number [facility] DEPARTMENT OF PATHOLOGY AND [address] [place] [address] C-peptide (05/10/2018 10:45 AM) C-peptide 4.0 1.1 - 4.4 ng/mL [facility] DEPARTMENT OF PATHOLOGY AND GENOMIC MEDICINE Specimen Plasma specimen Performing Organization Address [facility] Phone Number [facility] DEPARTMENT OF PATHOLOGY AND [address] [place] [address] Hepatitis B surface antibody (05/10/2018 10:45 AM)Only the most recent of2 resultswithin the time period is included. Hepatitis B surface Ab Non-reactive Non-reactive [facility] DEPARTMENT OF PATHOLOGY AND GENOMIC MEDICINE Specimen Blood Performing Organization Address City/[facility] Phone Number [facility] DEPARTMENT OF PATHOLOGY AND [address] [place] [address] Hepatitis B surface antigen (05/10/2018 10:45 AM)Only the most recent of2 resultswithin the time period is included. Hepatitis B surface Ag Non-reactive Non-reactive [facility] DEPARTMENT OF PATHOLOGY AND GENOMIC MEDICINE Specimen Blood Performing Organization Address City/[facility] Phone Number [facility] DEPARTMENT OF PATHOLOGY AND [address] [place] [address] Partial thromboplastin time, activated (05/10/2018 10:45 AM)Only the most recent of2 resultswithin the time period is included. PTT 47.7 (H) 23.0 - 36.0 sec [facility] DEPARTMENT OF PATHOLOGY Comment: AND [facility] PTT therapeutic range for unfractionated heparin is 61.0-112.0 seconds which corresponds to Anti-Xa 0.3-0.7 U/ml. Specimen Blood Performing Organization Address City/[facility] Phone Number [facility] DEPARTMENT OF PATHOLOGY AND [address] [place] [address] Prothrombin time with INR (05/10/2018 10:45 AM)Only the most recent of2 resultswithin the time period is included. Prothrombin time 14.3 12.0 - 15.0 sec [facility] DEPARTMENT OF PATHOLOGY AND GENOMIC MEDICINE INR 1.1 [facility] DEPARTMENT OF Comment: PATHOLOGY AND GENOMIC The International Normalized Ratio (INR) is a therapeutic MEDICINE monitoring tool for patients who are stable on oral anticoagulant therapy. An INR of 2.0-3.0 is suggested for deep vein thrombosis/pulmonary embolism. Specimen Blood Performing Organization Address [facility] Phone Number [facility] DEPARTMENT OF PATHOLOGY AND [address] [place] [address] Gram stain (05/10/2018 10:45 AM)Only the most recent of2 resultswithin the time period is included. Gram stain result No WBC's or organisms seen. [facility] DEPARTMENT OF PATHOLOGY Comment: AND [facility] Specimen Information Specimen Source: Urine Specimen Site: Clean catch Specimen Urine Performing Organization Address [facility] Phone Number [facility] DEPARTMENT OF PATHOLOGY AND [address] [place] [address] CBC with platelet and differential (05/10/2018 10:45 AM)Only the most recent of7 resultswithin the time period is included. WBC 6.04 4.50 - 11.00 k/uL [facility] DEPARTMENT OF PATHOLOGY AND GENOMIC MEDICINE RBC 3.35 (L) 4.40 - 6.00 m/uL [facility] DEPARTMENT OF PATHOLOGY AND GENOMIC MEDICINE HGB 9.6 (L) 14.0 - 18.0 g/dL [facility] DEPARTMENT OF PATHOLOGY AND GENOMIC MEDICINE HCT 30.0 (L) 41.0 - 51.0 % [facility] DEPARTMENT OF PATHOLOGY AND GENOMIC MEDICINE MCV 89.6 82.0 - 100.0 fL [facility] DEPARTMENT OF PATHOLOGY AND GENOMIC MEDICINE MCH 28.7 27.0 - 34.0 pg [facility] DEPARTMENT OF PATHOLOGY AND GENOMIC MEDICINE MCHC 32.0 31.0 - 37.0 g/dL [facility] DEPARTMENT OF PATHOLOGY AND GENOMIC MEDICINE RDW - SD 50.6 37.0 - 55.0 fL [facility] DEPARTMENT OF PATHOLOGY AND GENOMIC MEDICINE MPV 9.6 8.8 - 13.2 fL [facility] DEPARTMENT OF PATHOLOGY AND GENOMIC MEDICINE Platelet count 277 150 - 400 k/uL [facility] DEPARTMENT OF PATHOLOGY AND GENOMIC MEDICINE Nucleated RBC 0.00 /100 WBC [facility] DEPARTMENT OF PATHOLOGY AND GENOMIC MEDICINE Neutrophils 75.4 (H) 39.0 - 69.0 % [facility] DEPARTMENT OF PATHOLOGY AND GENOMIC MEDICINE Lymphocytes 12.3 (L) 25.0 - 45.0 % [facility] DEPARTMENT OF PATHOLOGY AND GENOMIC MEDICINE Monocytes 6.0 0.0 - 10.0 % [facility] DEPARTMENT OF PATHOLOGY AND GENOMIC MEDICINE Eosinophils 3.8 0.0 - 5.0 % [facility] DEPARTMENT OF PATHOLOGY AND GENOMIC MEDICINE Basophils 1.5 (H) 0.0 - 1.0 % [facility] DEPARTMENT OF PATHOLOGY AND GENOMIC MEDICINE Immature granulocytes 1.0Comment: 0.0 - 1.0 % [facility] DEPARTMENT OF "Immature PATHOLOGY AND GENOMIC granulocytes" MEDICINE (promyelocytes, myelocytes, metamyelocytes) Specimen Blood Performing Organization Address City/State/Zipcode Phone Number [facility] DEPARTMENT OF PATHOLOGY AND [address] [place] [address] [facility] Urine culture (05/10/2018 10:45 AM) Urine culture isolate Mixed Gram positive juwan [facility] DEPARTMENT OF 10-3 cfu/ml PATHOLOGY AND GENOMIC (A) MEDICINE Comment: Specimen Information Specimen Source: Urine Specimen Site: Clean catch Specimen Urine Performing Organization Address City/[facility]/Zipcode Phone Number [facility] DEPARTMENT OF PATHOLOGY AND [address] [place] [address] [facility] Serum electrophoresis (05/10/2018 10:45 AM) Protein 6.7 6.3 - 8.3 g/dL [facility] DEPARTMENT OF Comment: PATHOLOGY AND GENOMIC [place] 4.6-7.0 g/dL MEDICINE 1 week 4.4-7.6 g/dL 7 months-1year5.1-7.3 g/dL 1-2 years5.6-7.5 g/dL >3 years6.0-8.0 g/dL 18-150 6.3-8.3 g/dL SPE albumin 3.52 (L) 4.00 - 5.30 g/dL [facility] DEPARTMENT OF PATHOLOGY AND GENOMIC MEDICINE SPE alpha 1 0.30 (H) 0.10 - 0.25 g/dL [facility] DEPARTMENT OF PATHOLOGY AND GENOMIC MEDICINE SPE alpha 2 0.88 (H) 0.58 - 0.84 g/dL [facility] DEPARTMENT OF PATHOLOGY AND GENOMIC MEDICINE SPE beta 0.62 0.50 - 1.10 g/dL [facility] DEPARTMENT OF PATHOLOGY AND GENOMIC MEDICINE SPE gamma 1.37 (H) 0.60 - 1.30 g/dL [facility] DEPARTMENT OF PATHOLOGY AND GENOMIC MEDICINE SPE extended See Comment [facility] DEPARTMENT OF interpretation Comment: PATHOLOGY AND GENOMIC Albumin is decreased while gamma globulins are diffusely increased and MEDICINE alpha-1 globulins and alpha-2 globulins are increased indicating a concomitant acute phase response and chronic disease pattern. SPE interpretation See CommentComment: [facility] DEPARTMENT OF Maira Collins MD; [facility] PATHOLOGY AND [facility] PhD; MEDICINE Mathieu Angelo MD Specimen Serum Performing Organization Address City/[facility] Phone Number [facility] DEPARTMENT OF PATHOLOGY AND [address] [place] [address] Prostate specific antigen (05/10/2018 10:45 AM) PSA 0.6 0.0 - 4.0 ng/mL [facility] DEPARTMENT OF PATHOLOGY Comment: AND [facility] The GEORGE 8000 PSA immunoassay was used. Results obtained with different assay methods or kits should not be used interchangeably and may be different. Specimen Plasma specimen Performing Organization Address City/[facility] Phone Number [facility] DEPARTMENT OF PATHOLOGY AND [address] [place] [address] [facility] Comprehensive metabolic panel (05/10/2018 10:45 AM)Only the most recent of5 resultswithin the time period is included. Sodium 139 135 - 148 mEq/L [facility] DEPARTMENT OF PATHOLOGY AND GENOMIC MEDICINE Potassium 4.6 3.5 - 5.0 mEq/L [facility] DEPARTMENT OF PATHOLOGY AND GENOMIC MEDICINE Chloride 96 (L) 98 - 112 mEq/L [facility] DEPARTMENT OF PATHOLOGY AND GENOMIC MEDICINE CO2 22 (L) 24 - 31 mEq/L [facility] DEPARTMENT OF PATHOLOGY AND GENOMIC MEDICINE Anion gap 21@ANIO (H) 7 - 15 mEq/L [facility] DEPARTMENT OF PATHOLOGY AND GENOMIC MEDICINE BUN 70 (H) 6 - 20 mg/dL [facility] DEPARTMENT OF PATHOLOGY AND GENOMIC MEDICINE Creatinine 10.4 (H) 0.7 - 1.2 mg/dL [facility] DEPARTMENT OF PATHOLOGY AND GENOMIC MEDICINE Glucose 138 (H) 65 - 99 mg/dL [facility] DEPARTMENT OF PATHOLOGY AND GENOMIC MEDICINE Calcium 8.0 (L) 8.3 - 10.2 mg/dL [facility] DEPARTMENT OF PATHOLOGY AND GENOMIC MEDICINE Protein 7.7 6.3 - 8.3 g/dL [facility] DEPARTMENT OF Comment: PATHOLOGY AND GENOMIC 4.6-7.0 g/dL MEDICINE 1 week 4.4-7.6 g/dL 7 months-1year5.1-7.3 g/dL 1-2 years5.6-7.5 g/dL >3 years6.0-8.0 g/dL 18-150 6.3-8.3 g/dL Albumin 2.6 (L) 3.5 - 5.0 g/dL [facility] DEPARTMENT OF PATHOLOGY AND GENOMIC MEDICINE A/G ratio 0.5 (L) 0.7 - 3.8 [facility] DEPARTMENT OF PATHOLOGY AND GENOMIC MEDICINE Alkaline phosphatase 261 (H) 40 - 129 U/L [facility] DEPARTMENT OF PATHOLOGY AND GENOMIC MEDICINE AST 21 10 - 50 U/L [facility] DEPARTMENT OF PATHOLOGY AND GENOMIC MEDICINE ALT 18 5 - 50 U/L [facility] DEPARTMENT OF PATHOLOGY AND GENOMIC MEDICINE Total bilirubin 0.3 0.0 - 1.2 mg/dL [facility] DEPARTMENT OF PATHOLOGY AND GENOMIC MEDICINE Specimen Plasma specimen Performing Organization Address City/State/Zipcode Phone Number [facility] DEPARTMENT OF PATHOLOGY AND [address] [place] [address] GENOMIC MEDICINE POC glucose (02/05/2018 11:55 AM)Only the most recent of29 resultswithin the time period is included. POC glucose 94 65 - 99 mg/dL [facility] DEPARTMENT OF PATHOLOGY AND Comment: GENOMIC MEDICINE RN Notified Meter ID: [id number] Auxiliary Operator: Lyubov Costa Performing Organization Address City/State/Zipcode Phone Number [facility] DEPARTMENT OF PATHOLOGY [address] [place] [address] AND GENOMIC MEDICINE Manual differential (02/04/2018 6:00 AM)Only the most recent of2 resultswithin the time period is included. Manual differential PERFORMED [facility] DEPARTMENT OF PATHOLOGY AND GENOMIC MEDICINE Neutrophils 69.0 39.0 - 69.0 % [facility] DEPARTMENT OF PATHOLOGY AND GENOMIC MEDICINE Lymphocytes 14.0 (L) 25.0 - 45.0 % [facility] DEPARTMENT OF PATHOLOGY AND GENOMIC MEDICINE Monocytes 11.0 (H) 0.0 - 10.0 % [facility] DEPARTMENT OF PATHOLOGY AND GENOMIC MEDICINE Eosinophils 3.0 0.0 - 5.0 % [facility] DEPARTMENT OF PATHOLOGY AND GENOMIC MEDICINE Basophils 2.0 (H) 0.0 - 1.0 % [facility] DEPARTMENT OF PATHOLOGY AND GENOMIC MEDICINE Metamyelocytes 1 % [facility] DEPARTMENT OF PATHOLOGY AND GENOMIC MEDICINE Platelet slide review Luci adequate [facility] DEPARTMENT OF PATHOLOGY AND GENOMIC MEDICINE Anisocytosis Moderate [facility] DEPARTMENT OF PATHOLOGY AND GENOMIC MEDICINE Polychromasia Moderate [facility] DEPARTMENT OF PATHOLOGY AND GENOMIC MEDICINE Tear drop cells Occasional [facility] DEPARTMENT OF PATHOLOGY AND GENOMIC MEDICINE Ovalocytes Moderate [facility] DEPARTMENT OF PATHOLOGY AND GENOMIC MEDICINE Enlarged platelets Moderate (A) [facility] DEPARTMENT OF PATHOLOGY AND GENOMIC MEDICINE Performing Organization Address City/State/Zipcode Phone Number [facility] DEPARTMENT OF PATHOLOGY [address] [place] [address] AND [facility] Basic metabolic panel (02/04/2018 6:00 AM)Only the most recent of2 resultswithin the time period is included. Sodium 139 135 - 148 mEq/L [facility] DEPARTMENT OF PATHOLOGY AND GENOMIC MEDICINE Potassium 3.8 3.5 - 5.0 mEq/L [facility] DEPARTMENT OF PATHOLOGY AND GENOMIC MEDICINE Chloride 97 (L) 98 - 112 mEq/L [facility] DEPARTMENT OF PATHOLOGY AND GENOMIC MEDICINE CO2 29 24 - 31 mEq/L [facility] DEPARTMENT OF PATHOLOGY AND GENOMIC MEDICINE Anion gap 13 7 - 15 mEq/L [facility] DEPARTMENT OF Comment: PATHOLOGY AND GENOMIC Starting from December , anion gap calculation MEDICINE no longer incorporates potassium. Please note the change. BUN 47 (H) 6 - 20 mg/dL [facility] DEPARTMENT OF PATHOLOGY AND GENOMIC MEDICINE Creatinine 8.2 (H) 0.7 - 1.2 mg/dL [facility] DEPARTMENT OF PATHOLOGY AND GENOMIC MEDICINE Glucose 89 65 - 99 mg/dL [facility] DEPARTMENT OF PATHOLOGY AND GENOMIC MEDICINE Calcium 8.1 (L) 8.3 - 10.2 mg/dL [facility] DEPARTMENT OF PATHOLOGY AND GENOMIC MEDICINE Specimen Plasma specimen Performing Organization Address [facility] Phone Number [facility] DEPARTMENT OF PATHOLOGY [address] [place] [address]. [place] [address] AND [facility] Phosphorus level (02/03/2018 6:00 AM)Only the most recent of3 resultswithin the time period is included. Phosphorus 6.1 (H) 2.4 - 4.5 mg/dL [facility] DEPARTMENT OF PATHOLOGY AND [facility] Specimen Plasma specimen Performing Organization Address [facility] Phone Number [facility] DEPARTMENT OF PATHOLOGY [address] [place] [address]. [place] [address] AND [facility] Rapid HIV 1 & 2 (02/02/2018 12:45 PM) Rapid HIV 1 and 2 Non-Reactive Non-Reactive [facility] DEPARTMENT OF PATHOLOGY AND [facility] Specimen Blood Performing Organization Address [facility] Phone Number [facility] DEPARTMENT OF PATHOLOGY [address] [place] [address]. [place] [address] AND [facility] IR Lumbar Puncture by Radiology [...] fluoroscopic guided lumbar puncture as detailed above. [facility]-[id number] Procedure Note Interface, Radiology Results Incoming - [...] fluoroscopic guided lumbar puncture as detailed above. [id number] Performing Organization Address [facility] Phone Number [facility] [address] [place] [address] Varicella zoster by PCR (02/02/2018 11:35 AM)Only the most recent of2 resultswithin the time period is included. VZV result Not-Detected Not-Detected [facility] DEPARTMENT OF copies/mL PATHOLOGY AND GENOMIC MEDICINE Varicella zoster, PCR See link below for [facility] DEPARTMENT OF PDF Lab PATHOLOGY AND GENOMIC ReportComment: Case MEDICINE Number: [id number] Performing Organization Address [facility] Phone Number [facility] DEPARTMENT OF PATHOLOGY AND [address] [place] [address] Herpes simplex virus by PCR (02/02/2018 11:35 AM) Herpes virus, PCR Not-Detected Not-Detected [facility] DEPARTMENT OF PATHOLOGY AND GENOMIC MEDICINE Herpes virus, PCR See link below for PDF [facility] DEPARTMENT OF PATHOLOGY Lab ReportComment: Case AND GENOMIC MEDICINE Number: [id number] Performing Organization Address [facility] Phone Number [facility] DEPARTMENT OF PATHOLOGY AND [address] [place] [address] AFB culture (02/02/2018 11:35 AM) AFB culture isolate No growth after 6 weeks of incubation. [facility] DEPARTMENT OF PATHOLOGY Comment: AND [facility] Specimen Information Specimen Source: CSF (Spinal Fluid) Specimen Site: Back Specimen Cerebrospinal fluid - Back Performing Organization Address [facility] Phone Number [facility] DEPARTMENT OF PATHOLOGY AND [address] [place] [address] Cryptococcal antigen, screen (02/02/2018 11:35 AM) Cryptococcal Ag Negative - No Cryptococcus antigen detected. [facility] DEPARTMENT OF PATHOLOGY Comment: AND GENOMIC MEDICINE Specimen Information Specimen Source: CSF (Spinal Fluid) Specimen Site: Back Specimen Cerebrospinal fluid - Back Performing Organization Address [facility]/Zipcode Phone Number [facility] DEPARTMENT OF PATHOLOGY AND [address] [place] [id number] [place] [address] Enterovirus by PCR (02/02/2018 11:35 AM) Enterovirus PCR Not-Detected Not-Detected [facility] DEPARTMENT OF PATHOLOGY AND GENOMIC MEDICINE Enterovirus PCR See link below for PDF Lab [facility] DEPARTMENT OF PATHOLOGY ReportComment: Case AND GENOMIC MEDICINE Number: [id number] Performing Organization Address City/[facility] Phone Number [facility] DEPARTMENT OF PATHOLOGY AND [address] [place] [address] [facility] CSF culture (02/02/2018 11:35 AM) CSF culture isolate No growth after 3 days. [facility] DEPARTMENT OF PATHOLOGY Comment: AND GENOMIC MEDICINE Specimen Information Specimen Source: CSF (Spinal Fluid) Specimen Site: Back Specimen Cerebrospinal fluid - Back Performing Organization Address [facility] Phone Number [facility] DEPARTMENT OF PATHOLOGY AND [address] [place], [place] [id number] [facility] Fungus culture (02/02/2018 11:35 AM) Fungus culture isolate No growth after 4 weeks of incubation. [facility] DEPARTMENT OF Comment: PATHOLOGY AND GENOMIC Specimen Information MEDICINE Specimen Source: CSF (Spinal Fluid) Specimen Site: Back Specimen Cerebrospinal fluid - Back Performing Organization Address [facility] Phone Number [facility] DEPARTMENT OF PATHOLOGY AND [address] [place] [address] [facility] CSF cell count with differential (02/02/2018 11:35 AM) Color, CSF Colorless [facility] DEPARTMENT OF PATHOLOGY AND GENOMIC MEDICINE Appearance, CSF Clear [facility] DEPARTMENT OF PATHOLOGY AND GENOMIC MEDICINE CSF supernatant Colorless [facility] DEPARTMENT OF PATHOLOGY AND GENOMIC MEDICINE RBC, CSF 0 0 - 1 /CMM [facility] DEPARTMENT OF PATHOLOGY AND GENOMIC MEDICINE WBC, CSF 2 0 - 5 /CMM [facility] DEPARTMENT OF PATHOLOGY AND GENOMIC MEDICINE Specimen Cerebrospinal fluid Performing Organization Address City/[facility]/Zipcode Phone Number [facility] DEPARTMENT OF PATHOLOGY [address] [place] [id number] AND [facility] Protein, CSF (02/02/2018 11:35 AM) Protein, CSF 44 15 - 45 mg/dL [facility] DEPARTMENT OF PATHOLOGY AND GENOMIC MEDICINE Specimen Cerebrospinal fluid Performing Organization Address City/[facility]/Zipcode Phone Number [facility] DEPARTMENT OF PATHOLOGY [id number] [place] [address]. [place] [address] AND [facility] Glucose level, CSF (02/02/2018 11:35 AM) Glucose, CSF 65 40 - 70 mg/dL [facility] DEPARTMENT OF PATHOLOGY AND GENOMIC MEDICINE Specimen Cerebrospinal fluid Performing Organization Address City/[facility]/Zipcode Phone Number [facility] DEPARTMENT OF PATHOLOGY [address] [place] [address]. [place] [address] AND [facility] Hemoglobin A1c (02/02/2018 5:40 AM) Hemoglobin A1C 6.4 (H) 4.0 - 6.0 % [facility] DEPARTMENT OF PATHOLOGY Comment: AND [facility] Less than 6% - Goal of therapy for Type II Diabetes Less than 7%-Goal of therapy for Type I Diabetes Less than 8%-Acceptable control for Type I or Type II Diabetes Greater than 8%-Unacceptable control; action indicated. ([id number]) Specimen Blood Performing Organization Address [facility]/Zipcode Phone Number [facility] DEPARTMENT OF PATHOLOGY [id number] [place] [address]. [place] [address] AND [facility] Lipid panel (02/02/2018 5:40 AM) Cholesterol 132 0 - 199 mg/dL [facility] DEPARTMENT OF PATHOLOGY AND GENOMIC MEDICINE Triglycerides 170 (H) 0 - 149 mg/dL [facility] DEPARTMENT OF PATHOLOGY AND GENOMIC MEDICINE HDL cholesterol 42 40 - 99,999 [facility] DEPARTMENT OF mg/dL PATHOLOGY AND GENOMIC MEDICINE LDL cholesterol 56 0 - 99 mg/dL [facility] DEPARTMENT OF PATHOLOGY AND GENOMIC MEDICINE Lipid panel See below [facility] DEPARTMENT OF interpretation Comment: PATHOLOGY AND Total Cholesterol (mg/dL) GENOMIC MEDICINE <200 Desirable 236-408Texowymvii-zbwo >=240High Triglycerides (mg/dL) <150 Normal [phone]-yums 200-499High >=500Very high HDL Cholesterol (mg/dL) <40Low (male) <50Low (female) LDL Cholesterol (mg/dL) <100 Optimal 100-129Near or above optimal 895-204Xadglbdvdj-ysjl 160-189High >=190Very high Risk Catergories that modify [...] specimen Performing Organization Address City/State/Zipcode Phone Number [facility] DEPARTMENT OF PATHOLOGY [address] [facility] [place] [address] AND [facility] MRA Neck Wo Contrast (02/01/2018 2:52 PM) Narrative Performed At EXAMINATION:[facility] CLINICAL HISTORY:slurred speech COMPARISON:None. TECHNIQUE: Neck MRA using 2D and 3D jebr-vb-zzwlww technique with multi-planar MIP and 3D reconstruction. [...] neck could be performed if clinically indicated. [id number] Procedure Note Interface, Radiology Results Incoming - 02/01/2018 3:01 PM CDT EXAMINATION: MRA NECK WO CONTRAST CLINICAL HISTORY: slurred speech COMPARISON: None. TECHNIQUE: Neck MRA using 2D and 3D kazu-wf-bcrsve technique with multi-planar MIP and 3D reconstruction. [...] neck could be performed if clinically indicated. [id number] Performing Organization Address [facility] Phone Number [facility] [address] [place] [address] MRA Head Wo Contrast (02/01/2018 2:52 PM) Narrative Performed At EXAMINATION:MRA HEAD WO CONTRAST [facility] CLINICAL HISTORY:slurred speech COMPARISON:None. TECHNIQUE: [id number]-ry-[id number] MR angiography was performed without contrast and includes 3-D MIP image reconstructions FINDINGS: The large intracranial arteries are patent. 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 There is no definite large vessel stenosis or occlusion or definite aneurysm. IMPRESSION: Patency of the large intracranial arteries. [facility]-[id number] Procedure Note Interface, Radiology Results Incoming - 02/01/2018 2:59 PM CDT EXAMINATION: MRA HEAD WO CONTRAST CLINICAL HISTORY: slurred speech COMPARISON: None. TECHNIQUE: Kffa-un-ppefcw MR angiography was performed without contrast and includes 3-D MIP image reconstructions FINDINGS: The large intracranial arteries are patent. 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 There is no definite large vessel stenosis or occlusion or definite aneurysm. IMPRESSION: Patency of the large intracranial arteries. [facility]-[id number] Performing Organization Address [facility] Phone Number [facility] [address] [place] [address] MRI Stroke Brain Wo Contrast (02/01/2018 2:21 [...] clear. IMPRESSION: 1. No acute intracranial abnormality. [facility]-[id number] Procedure Note Interface, Radiology Results Incoming - [...] clear. IMPRESSION: 1. No acute intracranial abnormality. [id number] Performing Organization Address City/State/Zipcode Phone Number [facility] [address] [place] [address] EEG (routine) (02/01/2018 10:12 AM) Narrative Performed At Date of Study Completion: February 01, 2018 [facility] DEPARTMENT OF PATHOLOGY AND Date of Interpretation: [...] course of this tracing. Performing Organization Address City/[facility] Phone Number [facility] DEPARTMENT OF PATHOLOGY [address] [facility] [place] [address] AND [facility] Ammonia level (02/01/2018 6:25 AM) Ammonia 28 16 - 60 umol/L [facility] DEPARTMENT OF PATHOLOGY AND [facility] Specimen Plasma specimen Performing Organization Address [facility] Phone Number [facility] DEPARTMENT OF PATHOLOGY [address] [facility] [place] [address] AND [facility] Gastrointestinal panel (01/31/2018 9:30 PM) Gastrointestinal panel Negative for all pathogens tested: [facility] DEPARTMENT OF Negative for Salmonella PATHOLOGY [...] Specimen Stool - Nonpreserved Performing Organization Address [facility] Phone Number [facility] DEPARTMENT OF PATHOLOGY AND [address] [place] [address] [facility] PV duplex venous lower extremity (01/31/2018 [...] IMPRESSION: No evidence of deep venous thrombosis. [facility]-[id number] Procedure Note Interface, Radiology Results Incoming - [...] IMPRESSION: No evidence of deep venous thrombosis. [id number] Performing Organization Address City/[facility]/Zipcode Phone Number [facility] [address] [place] [address] Lactic acid level, SEPSIS - Now and repeat 2x every 3 hours (01/31/2018 8:40 PM )Only the most recent of3 resultswithin the time period is included. Lactic acid 1.0 0.5 - 2.2 mmol/L [facility] DEPARTMENT OF PATHOLOGY AND [facility] MEDICINE Specimen Plasma specimen Performing Organization Address [facility] Phone Number [facility] DEPARTMENT OF PATHOLOGY [address] [place] [address]. [place] [address] AND [facility] Uric acid level (01/31/2018 5:58 PM) Uric acid 8.1 (H) 3.4 - 7.0 mg/dL [facility] DEPARTMENT OF PATHOLOGY AND GENOMIC MEDICINE Specimen Plasma specimen Performing Organization Address [facility]/Zipcode Phone Number [facility] DEPARTMENT OF PATHOLOGY [address] [place] [address]. [place] [address] AND [facility] Thyroid stimulating hormone (01/31/2018 5:58 PM) TSH 4.17 0.27 - 4.20 uIU/mL [facility] DEPARTMENT OF PATHOLOGY AND [facility] MEDICINE Specimen Plasma specimen Performing Organization Address City/[facility]/Zipcode Phone Number [facility] DEPARTMENT OF PATHOLOGY [address] [place] [address]. [place] [address] AND GENOMIC MEDICINE XR Chest 1 Vw Portable (01/31/2018 2:43 PM) Narrative Performed At EXAMINATION:XR CHEST 1 VW PORTABLE HM [facility] CLINICAL HISTORY:Cough, evaluation for pneumonia COMPARISON:Chest x-ray 07/01/2002 IMPRESSION: Single frontal view reveals a stable cardiomediastinal silhouette. Lungs are clear. Pleural margins are sharp. The remainder of the examination is unchanged. [facility]-[id number] Procedure Note Hm Interface, Radiology Results Incoming - 01/31/2018 2:49 PM CDT EXAMINATION: XR CHEST 1 VW PORTABLE CLINICAL HISTORY: Cough, evaluation for pneumonia COMPARISON: Chest x-ray 07/01/2002 IMPRESSION: Single frontal view reveals a stable cardiomediastinal silhouette. Lungs are clear. Pleural margins are sharp. The remainder of the examination is unchanged. [facility]-[id number] Performing Organization Address City/State/Zipcode Phone Number [facility] [address] [place] [address] Blood culture, aerobic & anaerobic (01/31/2018 2:39 PM)Only the most recent of2 resultswithin the time period is included. Blood culture isolate No growth after 5 days of incubation. [facility] DEPARTMENT OF Comment: PATHOLOGY AND GENOMIC Specimen Information MEDICINE Specimen Source: Blood Specimen Site: Antecubital, right Specimen Blood - Antecubital, right Performing Organization Address City/[facility] Phone Number [facility] DEPARTMENT OF PATHOLOGY AND [address] [place] [address] [facility] Group A strep, rapid antigen (01/31/2018 2:32 PM) Group A strep, rapid Negative for Group A Streptococcus antigen. [facility] DEPARTMENT OF antigen result Comment: PATHOLOGY AND GENOMIC Specimen Information MEDICINE Specimen Source: Throat Specimen Site: Not otherwise specified Specimen Throat - Not otherwise specified Performing Organization Address City/State/Zipcode Phone Number [facility] DEPARTMENT OF PATHOLOGY [address] [place] [address] AND [facility] Strep screen culture (01/31/2018 2:32 PM) Strep screen culture No beta hemolytic Streptococci isolated [facility] DEPARTMENT OF isolate Comment: PATHOLOGY AND GENOMIC Specimen Information MEDICINE Specimen Source: Throat Specimen Site: Not otherwise specified Specimen Throat - Not otherwise specified Performing Organization Address City/[facility]/Zipcode Phone Number [facility] DEPARTMENT OF PATHOLOGY AND [address] [place] [address], [place] [phone] [place] [address] Respiratory pathogen panel (01/31/2018 2:30 PM) Respiratory pathogen Negative for all pathogens tested: [facility] DEPARTMENT OF panel Negative for Adenovirus [...] Left Performing Organization Address City/State/Zipcode Phone Number [facility] DEPARTMENT OF PATHOLOGY AND [address] [place] [address] Influenza antigen (01/31/2018 2:30 PM) Influenza antigen Negative for Influenza A/B antigen. [facility] DEPARTMENT OF PATHOLOGY Comment: AND [facility] Specimen Information Specimen Source: Nares Specimen Site: Left Specimen Nares - Left Performing Organization Address City/State/Zipcode Phone Number [facility] DEPARTMENT OF PATHOLOGY [address] [place] [address] AND [facility] CT Head Wo Contrast (01/31/2018 [...] is needed, MRI imaging should be considered. [id number] Procedure Note Interface, Radiology Results Incoming - [...] is needed, MRI imaging should be considered. [id number] Performing Organization Address City/State/Zipcode Phone Number [facility] [address] [place] [address] POC panel 4 (11/07/2017 7:44 AM) POC sodium 141 135 - 148 meq/L [facility] DEPARTMENT OF PATHOLOGY AND GENOMIC MEDICINE POC potassium 4.8 3.5 - 5.0 meq/L [facility] DEPARTMENT OF PATHOLOGY AND GENOMIC MEDICINE POC hematocrit 33 (L) 41 - 51 % [facility] DEPARTMENT OF PATHOLOGY AND GENOMIC MEDICINE POC glucose 65 65 - 99 mg/dL [facility] DEPARTMENT OF PATHOLOGY AND GENOMIC MEDICINE POC hemoglobin 11.2 (L) 14.0 - 18.0 g/dL [facility] DEPARTMENT OF PATHOLOGY AND GENOMIC MEDICINE Specimen Blood Performing Organization Address City/State/Zipcode Phone Number [facility] DEPARTMENT OF PATHOLOGY [address] [facility] [place] [address] AND GENOMIC MEDICINE after 07/22/2017 Insurance Payer Benefit Plan / Group Subscriber ID Type Phone Address BCBS BCBS CHOICE PPO/[employer] EMPL PPO xxxxxxxxxxxx PPO MEDICARE MEDICARE PART A AND B xxxxxxxxxx Medicare [place], [place] Home: [address] [phone] [address] MARNIE LYLES Transplant Self 1960 Home: [address] [phone] [address]
--- NOTE | 2018-07-23 10:56 | RAD REPORT ---
EXAM DESCRIPTION: CT - Head Brain Wo Cont - 07/23/2018 10:38 am CLINICAL HISTORY: Transient alteration of awareness, confusion, slurred speech COMPARISON: July 15, 2018, November 2015 TECHNIQUE: Axial 5 mm thick images of the head were obtained without IV contrast. All CT scans are performed using dose optimization technique as appropriate and may include automated exposure control or mA/KV adjustment according to patient size. FINDINGS: No intracranial hemorrhage, mass, edema or shift of mid-line structures. No acute cortical based infarction. Patient has underlying atrophy and chronic ischemic change. This is greater than t ypically seen at this age. This baseline pattern is similar to the short interval July 15 imaging. The 2 most recent study showed the volume loss changes and chronic ischemic changes to be progressiv e from 2016. There is a very subtle differential of diminished attenuation along the left posterior l imb internal capsule left thalamus. This may easily be technical in nature rather than any true ische jordan event. There was no report of extremity symptoms. Ventricles are in proportion to the volume loss . Physiologic calcifications are present. Mastoid air cells and visualized portions of the paranasal sinuses are clear. No acute bony findings. IMPRESSION: No intracranial hemorrhage or mass present. No acute cortical based infarction. Atrophy and chronic ischemic changes are present as a baseline, greater than typically seen in a ifeoma ent this age. There is some subtle diminished attenuation in the posterior limb internal capsule on the left and le ft thalamus. This may be artifact or chronic change. A lesion in this location should generate right extremity symptoms. Chronic ischemic changes can mask nonhemorrhagic acute infarction. MR brain followup can be obtained if there is ongoing concern for acute ischemia.
--- NOTE | 2018-07-23 11:17 | EKG ---
Test Date: 2018-07-23 Test Time: 10:50:37 Metabolic Specialist: MIRELA MEASUREMENT RESULTS: Intervals: Rate: 71 VA: 178 QRSD: 90 QT: 462 QTc: 502 Wilsey: P: 64 VA: 178 QRS: 76 T: 57 INTERPRETIVE STATEMENTS: Normal sinus rhythm Cannot rule out Anterior infarct, age undetermined Abnormal ECG Compared to ECG 07/15/2018 17:57:32 Myocardial infarct finding now present Atrial premature complex(es) no longer present Prolonged QT interval no longer present Electronically Signed On 07-23-18 11:17:34 CDT by Bong Coleman
[2018-07-23 11:19] LABS: Absolute Lymphocytes (CBC) 0.8 K/uL (0.7-4.9); Absolute Monocytes 0.8 K/uL (0.1-1.3); Absolute Neutrophil 5.8 K/uL (1.8-8.0); Basophils % 1.3 % (0-1.3); Hematocrit 25.5 % (39.6-49.0); Lymphocytes % 10.8 % (15.3-44.8); MCH 28.4 pg (27.0-35.0); MCV 83.5 fL (80-100); MPV 7.1 fL (7.6-11.3); Monocytes % 9.8 % (3.3-12.3); RBC Red Blood Cell Count 3.05 M/uL (4.33-5.43)
--- NOTE | 2018-07-23 11:21 | RAD REPORT ---
EXAM DESCRIPTION: RAD - Chest Single View - 07/23/2018 10:46 am CLINICAL HISTORY: Transient alteration of awareness, shortness of breath COMPARISON: July 15 TECHNIQUE: AP portable chest image was obtained 1032 hours . FINDINGS: No peripheral mass or consolidation. Perihilar and lung base interstitial markings are pro minent and there is some minimal alveolar opacification component. Bilateral costophrenic angle blunt ing is present. Upper lobe vasculature is mildly prominent. Heart size is upper normal. No pneumothor ax. No acute bony abnormality seen. No acute aortic findings suspected. IMPRESSION: Mild CHF/volume overload pattern. Findings are slightly less pronounced than seen Octobe r 21.
[2018-07-23 11:28] LABS: Protime INR 1.06
[2018-07-23] MEDS ORDERED: LORazepam 2 MG/ML VIAL ONE (11:38)
[2018-07-23 12:14] LABS: Albumin 2.3 g/dL (3.4-5.0); Bilirubin Direct 0.1 mg/dL (0-0.2); Bilirubin Total 0.4 mg/dL (0.2-1.0); Magnesium 2.3 mg/dL (1.8-2.4); Potassium 3.6 mmol/L (3.5-5.1); Protein, Total 6.7 g/dL (6.4-8.2); Troponin (Emerg Dept Use Only) 0.12 ng/mL (0.0-0.045)
[2018-07-23] MEDS ORDERED: ACYCLOVIR IVPB ONE (12:30)
[2018-07-23] MEDS ORDERED: NA CHLORIDE 0.9% IVPB ONE (12:30)
--- NOTE | 2018-07-23 14:56 | EDPHYS ---
Physician Documentation [facility] Name: Wade Koehler Age: 58 yrs Sex: Male : 1960 Arrival Date: 07/23/2018 Time: 10:02 Bed 3 Private MD: ED Physician Scotty Concepcion HPI: 07/23 10:41 This 58 yrs old Male presents to ER via EMS with complaints of AMS. jr8 10:41 Onset: The symptoms/episode began/occurred gradually, yesterday. Possible causes: jr8 unknown. Associated signs and symptoms: The patient has no apparent associated signs or symptoms. Current symptoms: In the emergency department the patient's symptoms are unchanged from the initial presentation. Patient's baseline: Neuro: alert and fully oriented, Motor: no deficits, Ambulation: walks without assistance, Speech: normal. It is unknown whether or not the patient has had similar symptoms in the past. The patient has been recently seen by a physician: with different complaint(s). stated that she noticed that patient was slurring his speech and acting slower then normal. Checked glucose and noted it to be low. Even after getting glucose up patient has remained slurred and slow to respond. Patient brought in by EMS today for same symptoms while he was at work. Patient currently A\T\O x4 but again slow to respond and with slurred speech. No complaints of pain or any other s/s except slight dizziness feeling . Historical: - Allergies: 10:11 NKA; ss - PMHx: 10:11 Diabetes - IDDM; Dialysis; at home seven days a week'; ESRD; Hypertension; PERIPHERAL ss NEUROPATHY; - PSHx: 10:11 Cholecystectomy; Right toe amputation; Appendectomy; ss 10:20 Peritoneal Dialysis; sg - Immunization history:: Adult Immunizations unknown. - Ebola Screening: : Patient denies exposure to infectious person Patient denies travel to an Ebola-affected area in the 21 days before illness onset. - Social history:: Smoking status: unknown. ROS: 10:41 Eyes: Negative for injury, pain, redness, and discharge, ENT: Negative for injury, jr8 pain, and discharge, Neck: Negative for injury, pain, and swelling, Cardiovascular: Negative for chest pain, palpitations, and edema, Respiratory: Negative for shortness of breath, cough, wheezing, and pleuritic chest pain, Abdomen/GI: Negative for abdominal pain, nausea, vomiting, diarrhea, and constipation, Back: Negative for injury and pain, MS/Extremity: Negative for injury and deformity, Skin: Negative for injury, rash, and discoloration. 10:41 Neuro: Positive for altered mental status, dizziness, speech changes. Exam: 10:23 Head/Face: Normocephalic, atraumatic. Eyes: Pupils equal round and reactive to light, jr8 extra-ocular motions intact. Lids and lashes normal. Conjunctiva and sclera are non-icteric and not injected. Cornea within normal limits. Periorbital areas with no swelling, redness, or edema. ENT: Nares patent. No nasal discharge, no septal abnormalities noted. Tympanic membranes are normal and external auditory canals are clear. Oropharynx with no redness, swelling, or masses, exudates, or evidence of obstruction, uvula midline. Mucous membranes moist. Neck: Trachea midline, no thyromegaly or masses palpated, and no cervical lymphadenopathy. Supple, full range of motion without nuchal rigidity, or vertebral point tenderness. No Meningismus. Cardiovascular: Regular rate and rhythm with a normal S1 and S2. No gallops, murmurs, or rubs. Normal PMI, no JVD. No pulse deficits. Respiratory: Lungs have equal breath sounds bilaterally, clear to auscultation and percussion. No rales, rhonchi or wheezes noted. No increased work of breathing, no retractions or nasal flaring. Abdomen/GI: Soft, non-tender, with normal bowel sounds. No distension or tympany. No guarding or rebound. No evidence of tenderness throughout. Back: No spinal tenderness. No costovertebral tenderness. Full range of motion. MS/ Extremity: Pulses equal, no cyanosis. Neurovascular intact. Full, normal range of motion. 10:23 Skin: vesicular rash noted to right elbow and AC joint along with right shoulder region . 10:23 Neuro: Orientation: to person, place, time \T\ situation. Mentation: slow to respond, Memory: is normal, Cranial nerves: CN I not tested, CN II- XII are normal as tested, visual meraz are intact. extraocular movements are intact, Facial palsy and sensory deficits are absent. no gross hearing deficit,. Speech is slowed, slurred, Tongue strength is normal, Cerebellar function: normal finger to nose testing, heel to figueroa testing is normal, Motor: moves all fours, strength is 5/5 in all extremities, Sensation: no obvious gross deficits, Gait: not tested. seizure activity, is not displayed by the patient, Abnormal movements: there are no abnormal movements. Vital Signs: 10:11 BP 157 / 71; Pulse 70; Resp 15; Pulse Ox 97% on R/A; Weight 94 kg; Height 5 ft. 9 in. ss (175.26 cm); Pain 0/10; 12:00 BP 142 / 70; Pulse 70; Resp 16; Pulse Ox 98% on R/A; Pain 0/10; sg 13:00 BP 165 / 74; Pulse 72; Resp 17; Temp 98.2; Pulse Ox 99% on R/A; sg 14:00 BP 142 / 72; Pulse 77; Resp 16; Temp 98.1; Pulse Ox 99% on R/A; Pain 3/10; sg 10:11 Body Mass Index 30.60 (94.00 kg, 175.26 cm) ss 14:00 left knee pain sg NIH Stroke Scale Scores: 10:23 NIHSS Score: 1 jr8 Procedures: 14:13 Lumbar Puncture: Patient placed in left lateral decubitus position. Prepped with jr8 Betadine. Draped using sterile technique. Procedure unsuccessful. MDM: 10:05 Patient medically screened. jr8 14:34 Data reviewed: vital signs, nurses notes, lab test result(s), EKG, radiologic studies, jr8 CT scan, plain films. Data interpreted: Pulse oximetry: on room air is 99 %. Interpretation: normal. Counseling: I had a detailed discussion with the patient and/or guardian regarding: the historical points, exam findings, and any diagnostic results supporting the discharge/admit diagnosis, lab results, radiology results, the need to transfer to another facility, [facility] does not immediately have the required specialist. ED course: Discussed case with Dr. Best Patients PCP. 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 No other acute findings noted on this patients labs when compared to old labs and studies. Will transfer to [facility] for continuity of care. ED course: [facility] accepted patient . 07/23 10:04 Order name: glucometer results - FOR PT WITH NO ID em1 07/23 10:23 Order name: Basic Metabolic Panel; Complete Time: 12:25 8 07/23 10:23 Order name: CBC with Diff; Complete Time: 11:59 jr8 07/23 10:23 Order name: LFT's; Complete Time: 12:25 8 07/23 10:23 Order name: Magnesium; Complete Time: 12:25 jr8 07/23 10:23 Order name: NT PRO-BNP; Complete Time: 12: jr8 07/23 10:23 Order name: PT-INR; Complete Time: 11:59 8 07/23 10:23 Order name: Troponin (emerg Dept Use Only); Complete Time: 12: 8 07/23 10:23 Order name: XRAY Chest (1 view); Complete Time: 11:59 8 07/23 10:23 Order name: AMMONIA; Complete Time: 11:59 8 07/23 10:23 Order name: ETOH Level; Complete Time: 12:25 8 07/23 10:23 Order name: CT Head Brain wo Cont; Complete Time: 11:07 8 07/23 11:30 Order name: Glucose, Ancillary Testing; Complete Time: 11:59 EDWV 07/23 10:23 Order name: EKG; Complete Time: 10:24 8 07/23 10:23 Order name: Cardiac monitoring; Complete Time: 13:8 07/23 10:23 Order name: EKG - Nurse/Tech; Complete Time: 13:07/23 10:23 Order name: IV Saline Lock; Complete Time: 13:07/23 10:23 Order name: Labs collected and sent; Complete Time: 13:07/23 10:23 Order name: O2 Per Protocol; Complete Time: 13:07/23 10:23 Order name: O2 Sat Monitoring; Complete Time: 13:07/23 16:27 Order name: Consistent Carb (ADA) 2000 Robert EDMS Administered Medications: 14:11 Drug: Acyclovir 5 mg/kg Route: IVPB; Site: right antecubital; sg 14:40 Follow up: Response: No adverse reaction; IV Status: Completed infusion sg 16:38 Drug: D50W 12.5 ml Route: IVP; Site: right antecubital; iw 17:00 Follow up: Response: No adverse reaction; Blood sugar is elevated; FSBG 80, reported to diego [facility]der[facility] Point of Care Testing: Blood Glucose: 10:11 Blood Glucose: 203 mg/dL; ss 11:10 Blood Glucose: 127 mg/dL; sg 16:30 Blood Glucose: 50 mg/dL; iw 17:34 Blood Glucose: 80 mg/dL; sg 17:34 pt finished eating at this time, Andrey STOUT notified, pt transport here at this time sg Ranges: Critical Glucose Levels:Adult <50 mg/dl or >400 mg/dl <40 mg/dl or >180 mg/dl Disposition: 07/24 09:26 Co-signature as Attending Physician, Scotty Concepcion MD I agree with the assessment and bishop plan of care. Disposition: 07/23/18 14:56 Transfer ordered to Other Acute Care Facility. Diagnosis are Altered mental status, unspecified, HSV Encephalitis. - Reason for transfer: Higher level of care. - Accepting physician is Dr. Marquez. - Condition is Fair. - Problem is new. - Symptoms are unchanged. NIH Stroke Scale - NIH Stroke Score Date: 07/23/2018 Time: 10:23 Total Score = 1 1a. Level of Consciousness (LOC) - 0(Alert) 1b. Level of Consciousness (LOC) (Year \T\ Age) - 0(Both) 1c. LOC Commands (Open \T\ Closes Eyes/Scrubber Machine Tender) - 0(Both) 2. Best Gaze (Lateral Gaze Paresis) - 0(Normal) 3. Visual Field Loss - 0(No visual loss) 4. Facial Palsy - 0(Normal) 5a. Left Arm: Motor (10-second hold) - 0(No drift) 5b. Right Arm: Motor (10-second hold) - 0(No drift) 6a. Left Leg: Motor (5-second hold - always test supine) - 0(No drift) 6b. Right Leg: Motor (5-second hold - always test supine) - 0(No drift) 7. Limb Ataxia (finger/nose \T\ heel/figueroa - test with eyes open) - 0(Absent) 8. Sensory Loss (pinprick arms/legs/face) - 0(Normal) 9. Best Language: Aphasia (description/naming/reading) - 0(No aphasia) 10. Dysarthria (speech clarity - read or repeat words) - 1(Mild to Moderate) 11. Extinction and Inattention (visual/tactile/auditory/spatial/personal) - 0(No abnormality) Initials: jr8 Signatures: Dispatcher [employer] EDJoseph Simms, RN RN Scotty Carpenter MD MD cha Williams, Irene RN RN iw Edna Brasher RN RN ss Jose Antonio Strong PA PA jr8 Corrections: (The following items were deleted from the chart) 07/23 15:02 14:56 07/23/2018 14:56 Transfer ordered to Other Acute Care Facility. Diagnosis jr8 is Altered mental status, unspecified; HSV Encephalitis. Reason for transfer: Higher level of care. Accepting physician is Fabiana Jiang. Condition is Fair. Problem is new. Symptoms are unchanged. jr8 17:42 15:02 07/23/2018 14:56 Transfer ordered to Other Acute Care Facility. Diagnosis ss is Altered mental status, unspecified; HSV Encephalitis. Reason for transfer: Higher level of care. Accepting physician is Dr. Marquez. Condition is Fair. Problem is new. Symptoms are unchanged. jr8
--- NOTE | 2018-07-23 14:56 | ER ---
Nurse's Notes [facility] Name: Wade Koehler Age: 58 yrs Sex: Male : 1960 Arrival Date: 07/23/2018 Time: 10:02 Bed 3 Private MD: Diagnosis: Altered mental status, unspecified;HSV Encephalitis Presentation: 07/23 10:06 Presenting complaint: EMS states: When patient arrived to work this morning, coworkers ss called 911 because patient seemed confused, had slurred speech, etc. on EMS arrival, glucose was 62. Pt states he normally runs in 170's, so EMS administered oral glucose and 300 mL of D10. BGL on arrival to ER is 210. Pt reports he has not slept in days and has not been feeling well. Unknown time of onset. Transition of care: patient was not received from another setting of care. Onset of symptoms is unknown. Risk Assessment: Do you want to hurt yourself or someone else? Patient reports no desire to harm self or others. Initial Sepsis Screen: Does the patient meet any 2 criteria? No. Patient's initial sepsis screen is negative. Does the patient have a suspected source of infection? No. Patient's initial sepsis screen is negative. Care prior to arrival: Medication(s) given: 300 mL D10, oral glucose IV initiated. 18 GA, in the right antecubital area, Glucose check: 62. 10:06 Method Of Arrival: EMS: [facility] 10:06 Acuity: WILFREDO 2 ss Historical: - Allergies: 10:11 NKA; ss - PMHx: 10:11 Diabetes - IDDM; Dialysis; at home seven days a week'; ESRD; Hypertension; PERIPHERAL ss NEUROPATHY; - PSHx: 10:11 Cholecystectomy; Right toe amputation; Appendectomy; ss 10:20 Peritoneal Dialysis; sg - Immunization history:: Adult Immunizations unknown. - Ebola Screening: : Patient denies exposure to infectious person Patient denies travel to an Ebola-affected area in the 21 days before illness onset. - Social history:: Smoking status: unknown. Screenin:20 Abuse screen: Denies threats or abuse. Denies injuries from another. Nutritional sg screening: No deficits noted. Tuberculosis screening: No symptoms or risk factors identified. Never had TB. Fall Risk None identified. 10:30 The patient has not been NPO before screening. The patient is alert, able to follow sg commands. The patient exhibits slurred or garbled speech. The patient is not exhibiting difficulty speaking. The patient does not exhibit difficulty understanding words. The patient is able to swallow own secretions with no drooling or need for suction. Patient tolerated one teaspoon of water. No drooling, immediate coughing, gurgling, or clearing of the throat was noted. The patient tolerated 90mL of water. No drooling, immediate coughing, gurgling, or clearing of the throat was noted. The patient passed the bedside swallow screening. Oral medications may be given as ordered. Contact Physician for further diet orders. Assessment: 10:20 General: Appears uncomfortable, unkempt, well developed, well nourished, Behavior is sg calm, cooperative, confused. Pain: Denies pain. Neuro: Level of Consciousness is awake, confused, Oriented to person, time, Restaurant Lead are equal bilaterally Speech is normal, Facial symmetry appears normal, Pupils are PERRLA. Cardiovascular: Capillary refill is brisk in bilateral fingers Patient's skin is warm and dry. Cardiovascular: Dialysis shunt: in the left lower quadrant, with no erythema, with no edema, for peritoneal dialysis. Respiratory: Respiratory effort is even, unlabored, Respiratory pattern is regular, symmetrical, Breath sounds are clear. GI: Abdomen is round non-distended. :. EENT: No signs and/or symptoms were reported regarding the EENT system. Derm: Skin is dusky, jaundiced, Skin temperature is warm. Musculoskeletal: No signs and/or symptoms reported regarding the musculoskeletal system. 10:28 Reassessment: Spoke with who reports that patient has been "acting weird" and ss running blood sugars since yesterday morning. 11:30 Reassessment: Patient appears in no apparent distress at this time. No changes from sg previously documented assessment. Patient and/or family updated on plan of care and expected duration. Pain level reassessed. 13:39 Reassessment: Andrey STOUT at bedside for LP, pt positioned appropriately at this time. sg 14:20 Reassessment: Patient appears in no apparent distress at this time. No changes from sg previously documented assessment. pt spouse reports she will be leaving to get pt belongings for transport, contact number of [phone] Caterina, pt spouse. Vital Signs: 10:11 BP 157 / 71; Pulse 70; Resp 15; Pulse Ox 97% on R/A; Weight 94 kg; Height 5 ft. 9 in. ss (175.26 cm); Pain 0/10; 12:00 BP 142 / 70; Pulse 70; Resp 16; Pulse Ox 98% on R/A; Pain 0/10; sg 13:00 BP 165 / 74; Pulse 72; Resp 17; Temp 98.2; Pulse Ox 99% on R/A; sg 14:00 BP 142 / 72; Pulse 77; Resp 16; Temp 98.1; Pulse Ox 99% on R/A; Pain 3/10; sg 10:11 Body Mass Index 30.60 (94.00 kg, 175.26 cm) ss 14:00 left knee pain sg NIH Stroke Scale Scores: 10:23 NIHSS Score: 1 8 ED Course: 10:02 Patient arrived in ED. em1 10:05 Jose Antonio Strong PA is PHCP. jr8 10:05 Scotty Concepcion MD is Attending Physician. jr8 10:06 Joseph Cortez, JAYDE is Primary Nurse. sg 10:09 Triage completed. ss 10:11 Arm band placed on right wrist. ss 10:20 No provider procedures requiring assistance completed. sg 10:30 Patient has correct armband on for positive identification. Bed in low position. Call sg light in reach. Side rails up X2. network mgr on. Pulse ox on. NIBP on. Warm blanket given. Head of bed elevated. 10:39 CT Head Brain wo Cont In Process Unspecified. EDMS 10:46 XRAY Chest (1 view) In Process Unspecified. EDMS 10:54 EKG done, by photogrammetric technician. reviewed by Jose Antonio STOUT. sm3 11:15 Initial lab(s) drawn, by il, sent to lab. Maintain EMS IV. Dressing intact. Good blood sg return noted. Site clean \\T\\ dry. Gauge \\T\\ site: 18 g lac. IV is patent, is intact. 11:18 Patient maintains SpO2 saturation greater than 95% on room air. ss 12:25 Consent for a lumbar puncture explained by physician, signed by spouse. sg 16:40 Diet: turkey and monegasque sandwich given to pt, pt spouse at bedside to assist pt with sg eating. 17:30 Patient transferred, IV remains in place. intact, No redness/swelling at site. sg Administered Medications: 14:11 Drug: Acyclovir 5 mg/kg Route: IVPB; Site: right antecubital; sg 14:40 Follow up: Response: No adverse reaction; IV Status: Completed infusion sg 16:38 Drug: D50W 12.5 ml Route: IVP; Site: right antecubital; iw 17:00 Follow up: Response: No adverse reaction; Blood sugar is elevated; FSBG 80, reported to diego Balderas Point of Care Testing: Blood Glucose: 10:11 Blood Glucose: 203 mg/dL; ss 11:10 Blood Glucose: 127 mg/dL; sg 16:30 Blood Glucose: 50 mg/dL; iw 17:34 Blood Glucose: 80 mg/dL; sg 17:34 pt finished eating at this time, Andrey STOUT notified, pt transport here at this time sg Ranges: Intake: Outcome: 14:56 ER care complete, transfer ordered by jrAustin 17:30 Transferred by ground EMS to [facility], Transfer form completed. sg 17:30 Condition: stable 17:30 Instructed on the need for transfer, report given to Ninfa DONOHUE charge nurse 17:42 Patient left the ED. NIH Stroke Scale - NIH Stroke Score Date: 07/23/2018 Time: 10:23 Total Score = 1 1a. Level of Consciousness (LOC) - 0(Alert) 1b. Level of Consciousness (LOC) (Year \\T\\ Age) - 0(Both) 1c. LOC Commands (Open \\T\\ Closes Eyes/[employer] Tractor Operator) - 0(Both) 2. Best Gaze (Lateral Gaze Paresis) - 0(Normal) 3. Visual Field Loss - 0(No visual loss) 4. Facial Palsy - 0(Normal) 5a. Left Arm: Motor (10-second hold) - 0(No drift) 5b. Right Arm: Motor (10-second hold) - 0(No drift) 6a. Left Leg: Motor (5-second hold - always test supine) - 0(No drift) 6b. Right Leg: Motor (5-second hold - always test supine) - 0(No drift) 7. Limb Ataxia (finger/nose \\T\\ heel/figueroa - test with eyes open) - 0(Absent) 8. Sensory Loss (pinprick arms/legs/face) - 0(Normal) 9. Best Language: Aphasia (description/naming/reading) - 0(No aphasia) 10. Dysarthria (speech clarity - read or repeat words) - 1(Mild to Moderate) 11. Extinction and Inattention (visual/tactile/auditory/spatial/personal) - 0(No abnormality) Initials: lux Signatures: Dispatcher [employer] EDJoseph Simms RN RN sg Greta Cabello RN RN iw Martinez, Eric em1 Edna Brasher RN RN ss Roszak, Josh, PA PA jr8 Yanira Givens 3 Corrections: (The following items were deleted from the chart) 11:20 11:18 Maintain EMS IV. Dressing intact. Good blood return noted. Site clean \\T\\ ss dry. Gauge \\T\\ site: 18 gauge in L AC. ss 19:17 10:20 Cardiovascular: Dialysis shunt: in the suprapubic area, with no erythema, sg with no edema, sg
[2018-07-23] MEDS ORDERED: D50W 25 GM/50 ML SYRINGE IV ONE (16:40)
[2018-07-23 18:56] VITALS: O2SAT 99
[2018-07-23 18:57] VITALS: BP 142/72; TEMP 98.1
== END 2018-07-23 17:42 ==
LOC: ER 10:01
PROC: 009U3ZX Drainage of Spinal Canal, Percutaneous Approach, Diagnostic (ICD-10-PCS; principal; 2018-07-23)
DX: B00.4 Herpesviral encephalitis (principal); E11.22 Type 2 diabetes mellitus with diabetic chronic kidney disease; I12.0 Hypertensive chronic kidney disease with stage 5 chronic kidney disease or end stage renal disease; N18.6 End stage renal disease; Z99.2 Dependence on renal dialysis
CPT/HCPCS: 36415; 62270; 70450; 71045; 80048; 80076; 80320; 82140; 82962; 83735; 83880; 84484; 85025; 85610; 93005; 96365; 96375; 99285; J0133

== ENCOUNTER 2018-08-22 20:33 | Emergency (ER) | payer BC, OTHER ==
[2018-08-22 21:38] LABS: Protime INR 1.01
[2018-08-22 21:49] LABS: Absolute Lymphocytes (CBC) 0.4 K/uL (0.7-4.9); Absolute Monocytes 0.2 K/uL (0.1-1.3); Absolute Neutrophil 5.1 K/uL (1.8-8.0); Basophils % 0.5 % (0-1.3); Eosinophils % 1.1 % (0-4.4); Hematocrit 29.1 % (39.6-49.0); Lymphocytes % 7.3 % (15.3-44.8); MCH 29.4 pg (27.0-35.0); MCV 86.7 fL (80-100); MPV 8.9 fL (7.6-11.3); Monocytes % 3.3 % (3.3-12.3); RBC Red Blood Cell Count 3.36 M/uL (4.33-5.43)
[2018-08-22 22:07] LABS: Bilirubin Direct 0.3 mg/dL (0-0.2); Bilirubin Total 0.8 mg/dL (0.2-1.0); CKMB Creatine Kinase MB 1.3 ng/mL (0.3-3.6); Potassium 4.2 mmol/L (3.5-5.1); Protein, Total 7.8 g/dL (6.4-8.2); Troponin (Emerg Dept Use Only) 0.15 ng/mL (0.0-0.045)
[2018-08-22 22:37] LABS: Urine Blood 3+ (NEG); Urine Glucose TRACE (NEG); Urine Protein 3+ (NEG)
[2018-08-22] MEDS ORDERED: Levofloxacin500mg IV 500 MG/100 ML BAG IV ONE (23:13)
[2018-08-22 23:17] LABS: Urine Amorphous Sediment 3+ /HPF (NONE SEEN); Urine Bacteria 20-50 /HPF (NONE SEEN); Urine Culture Reflex Order REFLEXED
[2018-08-22 23:18] LABS: Urine Mucus 1+ /HPF (NONE SEEN)
[2018-08-23] MEDS ORDERED: VANCOMYCIN 1 GM/250 ML BAG ONE (00:15)
--- NOTE | 2018-08-23 00:22 | ER ---
Nurse's Notes [facility] Name: Wade Koehler Age: 58 yrs Sex: Male : 1960 Arrival Date: 08/22/2018 Time: 20:34 Bed 27 Private MD: Diagnosis: Pneumonia, unspecified organism Presentation: 08/22 20:42 Presenting complaint: Patient states: Fever and shaking with SOB that started today. aj Transition of care: patient was not received from another setting of care. Onset of symptoms was August 22, 2018. Risk Assessment: Do you want to hurt yourself or someone else? Patient reports no desire to harm self or others. Initial Sepsis Screen: Does the patient meet any 2 criteria? No. Patient's initial sepsis screen is negative. Does the patient have a suspected source of infection? No. Patient's initial sepsis screen is negative. Care prior to arrival: None. 20:42 Method Of Arrival: Wheelchair aj 20:42 Acuity: [id number] 2 aj Triage Assessment: 20:45 General: Appears in no apparent distress. uncomfortable, Behavior is calm, cooperative. aj Pain: Denies pain. Neuro: Level of Consciousness is awake, alert, obeys commands, Oriented to person, place, time, situation, Appropriate for age. Respiratory: Reports shortness of breath Onset: The symptoms/episode began/occurred suddenly, the patient has moderate shortness of breath. Derm: Skin is intact, Skin is pale. Historical: - Allergies: 20:45 NKA; aj - Home Meds: 20:45 bumetanide 2 mg Oral tab 1 tab 2 times per day [Active]; carvedilol 6.25 mg Oral tab 1 aj tab daily [Active]; duloxetine 30 mg Oral cpDR 1 cap once daily [Active]; gabapentin 600 mg Oral tab 1 tab twice a day [Active]; hydralazine 100 mg Oral tab 1 tab 3 times per day [Active]; Lantus Sub-Q daily [Active]; losartan 100 mg Oral tab 1 tab once daily [Active]; metolazone 5 mg Oral tab 2 tabs twice daily [Active]; Lyrica 25 mg Oral 4 caps daily [Active]; metoprolol succinate 50 mg Oral Tb24 1 tab once daily [Active]; nifedipine 60 mg Oral TbER 1 tab once daily [Active]; sevelamer HCl Oral 4 tabs with meals [Active]; - PMHx: 20:45 Diabetes - IDDM; Dialysis; at home seven days a week'; ESRD; Hypertension; PERIPHERAL aj NEUROPATHY; - PSHx: 20:45 Cholecystectomy; Right toe amputation; Appendectomy; Peritoneal Dialysis; aj - Immunization history:: Adult Immunizations up to date. - Social history:: Smoking status: Patient/guardian denies using tobacco. - Ebola Screening: : Patient negative for fever greater than or equal to 101.5 degrees Fahrenheit, and additional compatible Ebola Virus Disease symptoms Patient denies exposure to infectious person Patient denies travel to an Ebola-affected area in the 21 days before illness onset No symptoms or risks identified at this time. Screenin:04 Abuse screen: Denies threats or abuse. Denies injuries from another. Nutritional rv screening: No deficits noted. Tuberculosis screening: No symptoms or risk factors identified. Fall Risk None identified. Assessment: 22:02 General: Appears uncomfortable, Behavior is cooperative. Pain: Denies pain. Neuro: rv Level of Consciousness is awake, alert, obeys commands, Oriented to person, place, time, situation. Cardiovascular: Rhythm is regular. Respiratory: Airway is patent Respiratory effort is labored, Breath sounds are clear bilaterally. GI: No signs and/or symptoms were reported involving the gastrointestinal system. : No signs and/or symptoms were reported regarding the genitourinary system. EENT: No signs and/or symptoms were reported regarding the EENT system. Derm: Skin is intact. Musculoskeletal: No signs and/or symptoms reported regarding the musculoskeletal system. 23:11 Reassessment: Patient appears in no apparent distress at this time. rv 08/23 00:23 Reassessment: Patient appears in no apparent distress at this time. awaiting transfer rv acceptance. 01:41 Reassessment: Patient appears in no apparent distress at this time. called report on rv [facility] in [facility]. awaiting transport. Vital Signs: 08/22 20:45 BP 131 / 92; Pulse 93; Resp 36; Temp 102.6(O); Pulse Ox 99% on 2 lpm NC; Weight 86.18 aj kg; Height 5 ft. 9 in. (175.26 cm); 23:10 BP 165 / 68; Pulse 77; Resp 19; Pulse Ox 97% on 2 lpm NC; rv 08/23 00:23 BP 130 / 49; Pulse 76; Resp 19; Temp 100.3(O); Pulse Ox 100% on 2 lpm NC; rv 01:42 BP 119 / 57; Pulse 69; Resp 19; Pulse Ox 100% on 2 lpm NC; rv 02:26 BP 103 / 44; Pulse 75; Resp 19; Pulse Ox 100% on 2 lpm NC; rv 08/22 20:45 Body Mass Index 28.06 (86.18 kg, 175.26 cm) aj ED Course: 08/22 20:34 Patient arrived in ED. ds1 20:43 Triage completed. aj 20:45 Arm band placed on left wrist. Patient placed in an exam room. aj 21:00 Baljit Pope NP is PHCP. pm1 21:00 Gurjit Brown MD is Attending Physician. pm1 21:00 Inserted saline lock: 18 gauge in left forearm, using aseptic technique. Blood rv collected. 21:30 Initial lab(s) drawn, by ut, sent to lab. First set of blood cultures drawn Second set rv of blood cultures drawn by me. 21:36 Chest Single View XRAY In Process Unspecified. EDMS 22:04 Patient has correct armband on for positive identification. Bed in low position. Call rv light in reach. Side rails up X 1. Adult w/ patient. patient monitor on. Pulse ox on. NIBP on. 22:19 Urine Microscopic Only Sent. ds4 08/23 02:26 No provider procedures requiring assistance completed. Patient transferred, IV remains rv in place. intact. Administered Medications: 08/22 23:10 Drug: LevaQUIN 500 mg Volume: 100 ml; Route: IVPB; Infused Over: 60 mins; Site: left rv forearm; 08/23 00:24 Follow up: IV Status: Completed infusion rv 00:18 Drug: vancoMYCIN 1 grams Route: IVPB; Infused Over: 2 hrs; Site: left antecubital; rv 01:50 Follow up: IV Status: Completed infusion rv 01:59 Drug: Zosyn 3.375 grams Route: IVPB; Infused Over: 60 mins; Site: left antecubital; rv 02:25 Follow up: IV Status: Infusion continued upon transfer rv Point of Care Testing: Blood Glucose: 08/22 21:00 Blood Glucose: 206 mg/dL; rv Ranges: Outcome: 08/23 00:22 ER care complete, transfer ordered by . pm1 02:26 Transferred by ground EMS to [facility], Transfer form completed. X-rays rv sent w/ patient. 02:26 Condition: stable 02:26 Instructed on the need for transfer. 02:27 Patient left the ED. rv Addendum: 08/28/2018 08:38 Addendum: Culture Results: Positive urine culture. Positive blood culture. Phone call i w Attempt #1 called Fabiana Jiang, pt no longer admitted, pt did not answer home phone number. Signatures: Dispatcher [employer] Sigrid Mckinley, RN RN Nathalie Ch ds1 Greta Cabello RN RN iw Swanson, Donovan ds4 aBljit Pope, SURVEY SUPERVISOR SURVEY SUPERVISOR pm1 Ralph Munguia, RN RN rv
--- NOTE | 2018-08-23 00:23 | EDPHYS ---
Physician Documentation [facility] Name: Wade Koehler Age: 58 yrs Sex: Male : 1960 Arrival Date: 08/22/2018 Time: 20:34 Bed 27 Private MD: ED Physician Gurjit Brown HPI: 08/22 22:00 This 58 yrs old Male presents to ER via Wheelchair with complaints of Fever, pm1 Chills, Shortness Of Breath. 22:00 The patient has shortness of breath at rest. Onset: The symptoms/episode began/occurred pm1 today. Duration: The symptoms are continuous. The patient's shortness of breath is aggravated by nothing, is alleviated by nothing. Associated signs and symptoms: Pertinent positives: productive cough, fever, Pertinent negatives: chest pain. 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 Patient reports that he was intubated during his hospitalization and was extubated on 07/27. Discharged on 08/09. Today patient fever, productive cough, and chills that started today. Historical: - Allergies: 20:45 NKA; aj - Home Meds: 20:45 bumetanide 2 mg Oral tab 1 tab 2 times per day [Active]; carvedilol 6.25 mg Oral tab 1 aj tab daily [Active]; duloxetine 30 mg Oral cpDR 1 cap once daily [Active]; gabapentin 600 mg Oral tab 1 tab twice a day [Active]; hydralazine 100 mg Oral tab 1 tab 3 times per day [Active]; Lantus Sub-Q daily [Active]; losartan 100 mg Oral tab 1 tab once daily [Active]; metolazone 5 mg Oral tab 2 tabs twice daily [Active]; Lyrica 25 mg Oral 4 caps daily [Active]; metoprolol succinate 50 mg Oral Tb24 1 tab once daily [Active]; nifedipine 60 mg Oral TbER 1 tab once daily [Active]; sevelamer HCl Oral 4 tabs with meals [Active]; - PMHx: 20:45 Diabetes - IDDM; Dialysis; at home seven days a week'; ESRD; Hypertension; PERIPHERAL aj NEUROPATHY; - PSHx: 20:45 Cholecystectomy; Right toe amputation; Appendectomy; Peritoneal Dialysis; aj - Immunization history:: Adult Immunizations up to date. - Social history:: Smoking status: Patient/guardian denies using tobacco. - Ebola Screening: : Patient negative for fever greater than or equal to 101.5 degrees Fahrenheit, and additional compatible Ebola Virus Disease symptoms Patient denies exposure to infectious person Patient denies travel to an Ebola-affected area in the 21 days before illness onset No symptoms or risks identified at this time. ROS: 22:00 Eyes: Negative for injury, pain, redness, and discharge, ENT: Negative for injury, pm1 pain, and discharge, Neck: Negative for injury, pain, and swelling, Cardiovascular: Negative for chest pain, palpitations, and edema. 22:00 Abdomen/GI: Negative for abdominal pain, nausea, vomiting, diarrhea, and constipation, Back: Negative for injury and pain. 22:00 : Negative for injury, bleeding, discharge, and swelling. Dialysis patient for 1 year. Still urinates MS/Extremity: Negative for injury and deformity, Skin: Negative for injury, rash, and discoloration, Neuro: Negative for headache, weakness, numbness, tingling, and seizure. 22:00 Constitutional: Positive for chills, fever. 22:00 Respiratory: Positive for cough, shortness of breath, Negative for wheezing. Exam: 22:00 Head/Face: Normocephalic, atraumatic. Eyes: Pupils equal round and reactive to light, pm1 extra-ocular motions intact. Lids and lashes normal. Conjunctiva and sclera are non-icteric and not injected. Cornea within normal limits. Periorbital areas with no swelling, redness, or edema. ENT: Nares patent. No nasal discharge, no septal abnormalities noted. Tympanic membranes are normal and external auditory canals are clear. Oropharynx with no redness, swelling, or masses, exudates, or evidence of obstruction, uvula midline. Mucous membranes moist. Neck: Trachea midline, no thyromegaly or masses palpated, and no cervical lymphadenopathy. Supple, full range of motion without nuchal rigidity, or vertebral point tenderness. No Meningismus. Chest/axilla: Normal chest wall appearance and motion. Nontender with no deformity. No lesions are appreciated. Cardiovascular: Regular rate and rhythm with a normal S1 and S2. No gallops, murmurs, or rubs. Normal PMI, no JVD. No pulse deficits. 22:00 Abdomen/GI: Soft, non-tender, with normal bowel sounds. No distension or tympany. No guarding or rebound. No evidence of tenderness throughout. Back: No spinal tenderness. No costovertebral tenderness. Full range of motion. Skin: Warm, dry with normal turgor. Normal color with no rashes, no lesions, and no evidence of cellulitis. MS/ Extremity: Pulses equal, no cyanosis. Neurovascular intact. Full, normal range of motion. 22:00 Constitutional: The patient appears in no acute distress, alert, awake, comfortable, well developed, well hydrated, well groomed, well nourished, febrile. 22:00 Respiratory: the patient does not display signs of respiratory distress, Respirations: normal, Breath sounds: rhonchi, are located in both bases. 22:00 Neuro: Orientation: is normal, Motor: moves all fours. Vital Signs: 20:45 BP 131 / 92; Pulse 93; Resp 36; Temp 102.6(O); Pulse Ox 99% on 2 lpm NC; Weight 86.18 aj kg; Height 5 ft. 9 in. (175.26 cm); 23:10 BP 165 / 68; Pulse 77; Resp 19; Pulse Ox 97% on 2 lpm NC; rv 08/23 00:23 BP 130 / 49; Pulse 76; Resp 19; Temp 100.3(O); Pulse Ox 100% on 2 lpm NC; rv 01:42 BP 119 / 57; Pulse 69; Resp 19; Pulse Ox 100% on 2 lpm NC; rv 02:26 BP 103 / 44; Pulse 75; Resp 19; Pulse Ox 100% on 2 lpm NC; rv 08/22 20:45 Body Mass Index 28.06 (86.18 kg, 175.26 cm) aj MDM: 08/22 21:03 Patient medically screened. pm1 21:44 Physician consultation: Dante Best MD was contacted at 21:44, regarding patient's pm1 condition, after a discussion of the case, a recommendation for transfer for higher level of care is made. 08/23 00:19 Data reviewed: vital signs. Data interpreted: Pulse oximetry: on room air is 97 %. pm1 Interpretation: normal. Counseling: I had a detailed discussion with the patient and/or guardian regarding: the historical points, exam findings, and any diagnostic results supporting the discharge/admit diagnosis, lab results, radiology results, the need for outpatient follow up, to return to the emergency department if symptoms worsen or persist or if there are any questions or concerns that arise at home. 00:56 ED course: Patient accepted by Dr. Blum to [facility] without report pm1 given. 08/22 21:18 Order name: Sputum Culture pm1 08/22 21:18 Order name: Basic Metabolic Panel pm1 08/22 21:18 Order name: Blood Culture Adult (2) pm1 08/22 21:18 Order name: CBC with Diff; Complete Time: 22:45 pm1 08/22 21:18 Order name: Ckmb; Complete Time: 22:45 pm1 08/22 21:18 Order name: CPK; Complete Time: 22:45 pm1 08/22 21:18 Order name: Lactate; Complete Time: 22:45 pm1 08/22 21:18 Order name: LFT's; Complete Time: 22:45 pm1 08/22 21:18 Order name: Lipase; Complete Time: 22:45 pm1 08/22 21:18 Order name: Procalcitonin; Complete Time: 22:45 pm1 08/22 21:18 Order name: Protime (+inr); Complete Time: 22:45 pm1 08/22 21:18 Order name: Ptt, Activated; Complete Time: 22:45 pm1 08/22 21:18 Order name: Troponin (emerg Dept Use Only); Complete Time: 22:45 pm1 08/22 21:18 Order name: Urine Microscopic Only; Complete Time: 23:22 pm1 08/22 21:18 Order name: Chest Single View XRAY pm08/22 21:18 Order name: Accucheck; Complete Time: 22:01 pm1 08/22 21:18 Order name: Cardiac monitoring; Complete Time: 22:01 pm1 08/22 21:18 Order name: EKG - Nurse/Tech; Complete Time: 22:01 pm1 08/22 21:18 Order name: IV Saline Lock - Large Bore; Complete Time: 22:01 pm1 08/22 21:18 Order name: Labs collected and sent; Complete Time: 22:01 pm1 08/22 21:18 Order name: O2 Per Protocol; Complete Time: 22:02 pm1 08/22 21:18 Order name: O2 Sat Monitoring; Complete Time: 22:02 pm1 08/22 21:19 Order name: Basic Metabolic Panel; Complete Time: 22:45 EDMS 08/22 22:18 Order name: Urine Dipstick--Ancillary (enter results); Complete Time: 22:45 ds4 08/22 22:50 Order name: Flu; Complete Time: 00:58 pm1 08/22 23:19 Order name: Urine Culture EDMS 08/22 21:18 Order name: Urine Dipstick-Ancillary (obtain specimen); Complete Time: 22:19 pm1 Administered Medications: 08/22 23:10 Drug: LevaQUIN 500 mg Volume: 100 ml; Route: IVPB; Infused Over: 60 mins; Site: left rv forearm; 08/23 00:24 Follow up: IV Status: Completed infusion rv 00:18 Drug: vancoMYCIN 1 grams Route: IVPB; Infused Over: 2 hrs; Site: left antecubital; rv 01:50 Follow up: IV Status: Completed infusion rv 01:59 Drug: Zosyn 3.375 grams Route: IVPB; Infused Over: 60 mins; Site: left antecubital; rv 02:25 Follow up: IV Status: Infusion continued upon transfer rv Point of Care Testing: Blood Glucose: 08/22 21:00 Blood Glucose: 206 mg/dL; rv Ranges: Critical Glucose Levels:Adult <50 mg/dl or >400 mg/dl <40 mg/dl or >180 mg/dl Disposition: 08/23 06:42 Co-signature as Attending Physician, Gurjit Brown MD Available for consultation at ps1 all times. . Disposition: 08/23/18 00:22 Transfer ordered to Other Acute Care Facility. Diagnosis is Pneumonia, unspecified organism. - Reason for transfer: Higher level of care. - Accepting physician is [facility]. - Condition is Stable. - Problem is new. - Symptoms have improved. Signatures: Dispatcher [employer] EDSigrid Wright RN RN aj Marinas, Patrick, NP ASSISTANT CLINICAL NURSE MANAGER pm1 Gurjit Brown MD MD ps1 Ralph Munguia RN RN rv Corrections: (The following items were deleted from the chart) 02:27 00:22 08/23/2018 00:22 Transfer ordered to Other Acute Care Facility. Diagnosis is rv Pneumonia, unspecified organism. Reason for transfer: Higher level of care. Accepting physician is [facility]. Condition is Stable. Problem is new. Symptoms have improved. pm1
[2018-08-23] MEDS ORDERED: PIPER/TAZO/NS 3.375gm 3.375 GM/100 ML BAG ONE (02:00)
[2018-08-23 04:28] VITALS: TEMP 100.3; O2SAT 100
[2018-08-23 04:30] VITALS: BP 103/44
--- NOTE | 2018-08-23 06:59 | RAD REPORT ---
EXAM DESCRIPTION: RAD - Chest Single View - 08/22/2018 9:37 pm CLINICAL HISTORY: Fever, shortness of breath COMPARISON: July 23 TECHNIQUE: AP portable chest image was obtained 2138 hours . FINDINGS: No peripheral mass or consolidation. Lung markings are similar or slightly less than magi rison. Dialysis catheter has been placed since the comparison and is in good position. Heart size is normal. Vasculature is mildly prominent but stable. No measurable pleural effusion and no pneumothora x. No acute bony abnormality seen. No acute aortic findings suspected. IMPRESSION: No peripheral mass or consolidation. No significant failure or volume overload. Patient has a chronic mild prominent vascular and lung pattern that could mask earliest stages of vol ume overload.
--- NOTE | 2018-08-23 07:19 | EKG ---
Test Date: 2018-08-22 Test Time: 21:16:18 Syrup Mixer Assistant: MEASUREMENT RESULTS: Intervals: Rate: 88 OH: 128 QRSD: 84 QT: 352 QTc: 425 [place]: P: -29 OH: 128 QRS: 57 T: 63 INTERPRETIVE STATEMENTS: Normal sinus rhythm Normal ECG Compared to ECG 07/23/2018 10:50:37 Myocardial infarct finding no longer present Electronically Signed On 08-23-18 07:18:58 MEDICAL COLLECTOR by Bong Coleman
== END 2018-08-23 02:27 ==
LOC: ER 20:33
DX: J18.9 Pneumonia, unspecified organism (principal); E11.22 Type 2 diabetes mellitus with diabetic chronic kidney disease; I12.0 Hypertensive chronic kidney disease with stage 5 chronic kidney disease or end stage renal disease; N18.6 End stage renal disease; Z99.2 Dependence on renal dialysis; Z79.4 Long term (current) use of insulin
CPT/HCPCS: 36415; 71045; 80048; 80076; 81003; 81015; 82550; 82553; 82962; 83605; 83690; 84145; 84484; 85025; 85610; 85730; 87040; 87077; 87086; 87088; 87186; 87205; 87804; 93005; 99285; J2543; J3370

== ENCOUNTER 2018-11-06 06:40 | Observation (INO) | payer BC, OTHER ==
[2018-11-06 07:58] LABS: Absolute Lymphocytes (CBC) 0.8 K/uL (0.7-4.9); Absolute Monocytes 0.6 K/uL (0.1-1.3); Absolute Neutrophil 2.4 K/uL (1.8-8.0); Basophils % 1.3 % (0-1.3); Eosinophils % 5.7 % (0-4.4); Hematocrit 29.3 % (39.6-49.0); Lymphocytes % 20.2 % (15.3-44.8); Protime INR 0.99; RBC Red Blood Cell Count 3.41 M/uL (4.33-5.43)
[2018-11-06 08:32] LABS: Albumin 3.3 g/dL (3.4-5.0); Bilirubin Direct 0.2 mg/dL (0-0.2); Bilirubin Total 0.5 mg/dL (0.2-1.0); Magnesium 2.3 mg/dL (1.8-2.4); Potassium 4.2 mmol/L (3.5-5.1); Protein, Total 7.2 g/dL (6.4-8.2); Troponin (Emerg Dept Use Only) 0.51 ng/mL (0.0-0.045)
--- NOTE | 2018-11-06 08:47 | RAD REPORT ---
EXAM DESCRIPTION: RAD - Chest Single View - 11/06/2018 7:59 am CLINICAL HISTORY: CHEST PAIN Chest pain. COMPARISON: Chest Single View dated 08/22/2018; Chest Single View dated 07/23/2018; Chest Single Vie w dated 07/15/2018; Chest Pa And Lat (2 Views) dated 01/25/2018 FINDINGS: Portable technique limits examination quality. The lungs are grossly clear. Small pleural effusions are present. The heart is normal in size. Mildly tortuous thoracic aorta. No displaced fractures.
--- NOTE | 2018-11-06 09:21 | ER ---
Nurse's Notes [facility] Name: Wade Koehler Age: 58 yrs Sex: Male : 1960 Arrival Date: 11/06/2018 Time: 06:43 Bed 18 Private MD: Diagnosis: Chest pain, unspecified;Displacement of vascular dialysis catheter Presentation: 11/06 06:51 Presenting complaint: states: pt had home dialysis last night, pt woke up with ak1 dialysis catheter to right chest wall. no bleeding noted. Transition of care: patient was not received from another setting of care. Onset of symptoms was November 06, 2018. Risk Assessment: Do you want to hurt yourself or someone else? Patient reports no desire to harm self or others. Care prior to arrival: None. 06:51 Method Of Arrival: Ambulatory ak1 06:51 Acuity: [id number] 3 ak1 08:11 Initial Sepsis Screen: Does the patient meet any 2 criteria? No. Patient's initial ph sepsis screen is negative. Does the patient have a suspected source of infection? No. Patient's initial sepsis screen is negative. Historical: - Allergies: 06:57 NKA; ak1 - Home Meds: 06:57 carvedilol 6.25 mg Oral tab 1 tab daily [Active]; gabapentin 600 mg oral tab 1 tab ak1 [Active]; bumetanide 2 mg Oral tab 1 tab 2 times per day [Active]; nifedipine 30 mg oral TbER 1 tab once daily [Active]; Lyrica 25 mg Oral 4 caps daily [Active]; Lantus 35 units Sub-Q daily [Active]; prasurgel 10 mg [Active]; tamsulosin 0.4 mg oral cp24 1 cap once daily [Active]; aspirin 81 mg Oral TbEC 1 tab once daily [Active]; losartan 100 mg oral tab 1 tab once daily [Active]; nitroglycerin 0.4 mg SL subl 1 tab [Active]; zolpidem 10 mg Oral tab 1 tab once daily [Active]; ferric citrate oral 20mg oral [Active]; Acidophilus 2 tabs daily Oral [Active]; vitamin b [Active]; - PMHx: 06:57 Diabetes - IDDM; Dialysis; at home seven days a week'; ESRD; PERIPHERAL NEUROPATHY; ak1 Hypertension; - PSHx: 06:57 Cholecystectomy; Right toe amputation; Appendectomy; Peritoneal Dialysis; ak1 - Immunization history:: Adult Immunizations unknown. - Social history:: Smoking status: Patient/guardian denies using tobacco. - Ebola Screening: : No symptoms or risks identified at this time. Screenin:07 Abuse screen: Denies threats or abuse. Denies injuries from another. Nutritional ph screening: No deficits noted. Tuberculosis screening: No symptoms or risk factors identified. Fall Risk None identified. Assessment: 07:30 General: Appears in no apparent distress. comfortable, well groomed, Behavior is calm, ph cooperative, appropriate for age, Denies fever, feeling ill. Pain: Denies pain. Neuro: Level of Consciousness is awake, alert, obeys commands, Oriented to person, place, time, situation, Denies weakness dizziness. Cardiovascular: Capillary refill < 3 seconds in bilateral fingers Patient's skin is warm and dry. Dialysis shunt: in the right clavicle and anterior aspect of right upper chest, catheter noted to be fully dislodged from site, no bleeding noted at this time, catheter placed at bedside. Respiratory: Airway is patent Respiratory effort is even, unlabored, Respiratory pattern is regular, symmetrical, Denies shortness of breath. GI: No signs and/or symptoms were reported involving the gastrointestinal system. Derm: Skin is healthy with good turgor, Skin is pink, warm \T\ dry. Musculoskeletal: Circulation, motion, and sensation intact. Range of motion:. 09:00 Reassessment: Patient appears in no apparent distress at this time. Patient and/or ph family updated on plan of care and expected duration. Pain level reassessed. Patient is alert, oriented x 3, equal unlabored respirations, skin warm/dry/pink. 10:00 Reassessment: Patient appears in no apparent distress at this time. Patient and/or ph family updated on plan of care and expected duration. Pain level reassessed. Pt appears to be sleeping w/ equal and unlabored respirations, awakens easily, awaiting room assignment. 11:16 Reassessment: Patient appears in no apparent distress at this time. Patient and/or ph family updated on plan of care and expected duration. Pain level reassessed. Patient is alert, oriented x 3, equal unlabored respirations, skin warm/dry/pink. Pt eating lunch, tolerating well, awaiting room assignment. 12:18 Reassessment: Patient appears in no apparent distress at this time. Patient and/or ph family updated on plan of care and expected duration. Pain level reassessed. Patient is alert, oriented x 3, equal unlabored respirations, skin warm/dry/pink. Report called to Alia DONOHUE pt taken to second floor via wheelchair. Vital Signs: 06:57 BP 194 / 81; Pulse 75; Resp 18; Temp 97.5(O); Pulse Ox 97% on R/A; Weight 90.72 kg (R); ak1 Height 5 ft. 8 in. (172.72 cm) (R); Pain 0/10; 08:12 BP 192 / 75; Pulse 73; Resp 14; Pulse Ox 100% on R/A; ph 09:00 BP 162 / 78; Pulse 76; Resp 16; Pulse Ox 99% on R/A; ph 10:00 BP 160 / 74; Pulse 76; Resp 16; Pulse Ox 98% on R/A; ph 11:18 BP 171 / 67; Pulse 82; Resp 18; Pulse Ox 97% on R/A; ph 06:57 Body Mass Index 30.41 (90.72 kg, 172.72 cm) ak1 ED Course: 06:43 Patient arrived in ED. ds1 06:47 Jose Antonio Strong PA is PHCP. jr8 06:47 Scotty Concepcion MD is Attending Physician. jr8 06:52 Triage completed. ak1 06:57 Arm band placed on Patient placed in an exam room, on a stretcher, on pulse oximetry, ak1 Patient notified of wait time. 07:08 Iliana Hamilton RN is Primary Nurse. ph 07:50 Inserted saline lock: 20 gauge in right antecubital area, using aseptic technique. ph Blood collected. 07:59 X-ray completed. Portable x-ray completed in exam room. Patient tolerated procedure jb2 well. 08:07 Patient has correct armband on for positive identification. Placed in gown. Bed in low ph position. Call light in reach. Side rails up X 1. Pulse ox on. NIBP on. Door closed. Noise minimized. Warm blanket given. 08:10 XRAY Chest (1 view) In Process Unspecified. EDMS 08:11 No provider procedures requiring assistance completed. ph 09:20 Dante Best MD is Hospitalizing Provider. jr8 11:12 Diet: Patient given a diabetic meal tray. [facility] 12:25 Patient admitted, IV remains in place. ph Administered Medications: No medications were administered Point of Care Testing: Blood Glucose: 10:46 Blood Glucose: 68 mg/dL; [facility] Ranges: Outcome: 09:20 Decision to Hospitalize by Provider. jr8 12:24 Admitted to Tele accompanied by tech, via wheelchair, room 203, Report called to Alia cifuentes RN 12:24 Condition: stable 12:24 Instructed on the need for admit. 12:27 Patient left the ED. ph Signatures: Dispatcher [employer] EDMS Orville Watts Demi ds1 Roszak, Josh, PA PA jr8 Brenda Solitario RN RN Iliana Hernandez RN RN Marisa Guerrero [facility]
--- NOTE | 2018-11-06 09:22 | EDPHYS ---
Physician Documentation [facility] Name: Wade Koehler Age: 58 yrs Sex: Male : 1960 Arrival Date: 11/06/2018 Time: 06:43 Bed 18 Private MD: ED Scotty Schuler HPI: 11/06 08:09 This 58 yrs old Male presents to ER via Ambulatory with complaints of Dialysis jr8 Catheter Problem - Out. 08:09 The patient has a dialysis catheter in the right subclavian area. Type of problem: jr8 Accidently pulled out. Onset: The symptoms/episode began/occurred acutely, last night. The malfunction was discovered at home. Dialysis schedule: . Associated signs and symptoms: Pertinent positives: None. The patient has not experienced similar symptoms in the past. The patient has not recently seen a physician. 09:18 Patient stated that he had 2 cardiac stents placed this past Monday. Had some nausea jr8 and discomfort last night. Historical: - Allergies: 06:57 NKA; ak1 - Home Meds: 06:57 carvedilol 6.25 mg Oral tab 1 tab daily [Active]; gabapentin 600 mg oral tab 1 tab ak1 [Active]; bumetanide 2 mg Oral tab 1 tab 2 times per day [Active]; nifedipine 30 mg oral TbER 1 tab once daily [Active]; Lyrica 25 mg Oral 4 caps daily [Active]; Lantus 35 units Sub-Q daily [Active]; prasurgel 10 mg [Active]; tamsulosin 0.4 mg oral cp24 1 cap once daily [Active]; aspirin 81 mg Oral TbEC 1 tab once daily [Active]; losartan 100 mg oral tab 1 tab once daily [Active]; nitroglycerin 0.4 mg SL subl 1 tab [Active]; zolpidem 10 mg Oral tab 1 tab once daily [Active]; ferric citrate oral 20mg oral [Active]; Acidophilus 2 tabs daily Oral [Active]; vitamin b [Active]; - PMHx: 06:57 Diabetes - IDDM; Dialysis; at home seven days a week'; ESRD; PERIPHERAL NEUROPATHY; ak1 Hypertension; - PSHx: 06:57 Cholecystectomy; Right toe amputation; Appendectomy; Peritoneal Dialysis; ak1 - Immunization history:: Adult Immunizations unknown. - Social history:: Smoking status: Patient/guardian denies using tobacco. - Ebola Screening: : No symptoms or risks identified at this time. ROS: 08:09 Eyes: Negative for injury, pain, redness, and discharge, ENT: Negative for injury, jr8 pain, and discharge, Neck: Negative for injury, pain, and swelling, Cardiovascular: Positive for CP. Negative for palpitations Respiratory: Negative for shortness of breath, cough, wheezing, and pleuritic chest pain, Abdomen/GI: Negative for abdominal pain, vomiting, diarrhea, and constipation. Positive for nausea Back: Negative for injury and pain, MS/Extremity: Negative for injury and deformity, Skin: Negative for injury, rash, and discoloration, Neuro: Negative for headache, weakness, numbness, tingling, and seizure. Exam: 08:09 Eyes: Pupils equal round and reactive to light, extra-ocular motions intact. Lids and jr8 lashes normal. Conjunctiva and sclera are non-icteric and not injected. Cornea within normal limits. Periorbital areas with no swelling, redness, or edema. ENT: Nares patent. No nasal discharge, no septal abnormalities noted. Tympanic membranes are normal and external auditory canals are clear. Oropharynx with no redness, swelling, or masses, exudates, or evidence of obstruction, uvula midline. Mucous membranes moist. Neck: Trachea midline, no thyromegaly or masses palpated, and no cervical lymphadenopathy. Supple, full range of motion without nuchal rigidity, or vertebral point tenderness. No Meningismus. Cardiovascular: Regular rate and rhythm with a normal S1 and S2. No gallops, murmurs, or rubs. Normal PMI, no JVD. No pulse deficits. Respiratory: Lungs have equal breath sounds bilaterally, clear to auscultation and percussion. No rales, rhonchi or wheezes noted. No increased work of breathing, no retractions or nasal flaring. Abdomen/GI: Soft, non-tender, with normal bowel sounds. No distension or tympany. No guarding or rebound. No evidence of tenderness throughout. Back: No spinal tenderness. No costovertebral tenderness. Full range of motion. Skin: Warm, dry with normal turgor. Normal color with no rashes, no lesions, and no evidence of cellulitis. Right subclavian site with puncture wound from catheter but without bleeding or erythema. No subcutaneous hematoma felt MS/ Extremity: Pulses equal, no cyanosis. Neurovascular intact. Full, normal range of motion. Neuro: Awake and alert, GCS 15, oriented to person, place, time, and situation. Cranial nerves II-XII grossly intact. Motor strength 5/5 in all extremities. Sensory grossly intact. Cerebellar exam normal. Normal gait. Vital Signs: 06:57 BP 194 / 81; Pulse 75; Resp 18; Temp 97.5(O); Pulse Ox 97% on R/A; Weight 90.72 kg (R); ak1 Height 5 ft. 8 in. (172.72 cm) (R); Pain 0/10; 08:12 BP 192 / 75; Pulse 73; Resp 14; Pulse Ox 100% on R/A; ph 09:00 BP 162 / 78; Pulse 76; Resp 16; Pulse Ox 99% on R/A; ph 10:00 BP 160 / 74; Pulse 76; Resp 16; Pulse Ox 98% on R/A; ph 11:18 BP 171 / 67; Pulse 82; Resp 18; Pulse Ox 97% on R/A; ph 06:57 Body Mass Index 30.41 (90.72 kg, 172.72 cm) ak1 MDM: 06:47 Patient medically screened. jr8 09:17 Data reviewed: vital signs, nurses notes, lab test result(s), EKG, radiologic studies, jr8 plain films. Data interpreted: Pulse oximetry: on room air is 100 %. Interpretation: normal. Counseling: I had a detailed discussion with the patient and/or guardian regarding: the historical points, exam findings, and any diagnostic results supporting the discharge/admit diagnosis, lab results, radiology results, the need for further work-up and treatment in the hospital. 09:18 ED course: Dr. Purcell consulted and wants patient observed over night and to have new jr8 rakan catheter placed . 11/06 06:57 Order name: Basic Metabolic Panel; Complete Time: 08:46 11/06 06:57 Order name: CBC with Diff; Complete Time: 08:06 11/06 06:57 Order name: LFT's; Complete Time: 08:46 8 11/06 06:57 Order name: Magnesium; Complete Time: 08:46 8 11/06 06:57 Order name: NT PRO-BNP; Complete Time: 08:46 jr8 11/06 06:57 Order name: PT-INR; Complete Time: 08:12 8 11/06 06:57 Order name: Troponin (emerg Dept Use Only); Complete Time: 08:46 11/06 06:57 Order name: XRAY Chest (1 view); Complete Time: 09:04 8 11/06 06:57 Order name: EKG; Complete Time: 06:59 jr8 11/06 06:57 Order name: Cardiac monitoring; Complete Time: 07:01 11/06 06:57 Order name: EKG - Nurse/Tech; Complete Time: 08:12 8 11/06 06:57 Order name: IV Saline Lock; Complete Time: 08:12 8 11/06 10:43 Order name: CONS Physician Consult [facility] 11/06 10:49 Order name: Diet Ada 2000 Robert; Complete Time: 10:50 8 11/06 06:57 Order name: Labs collected and sent; Complete Time: 08:12 11/06 06:57 Order name: O2 Per Protocol; Complete Time: 08:12 11/06 06:57 Order name: O2 Sat Monitoring; Complete Time: 08:12 Administered Medications: No medications were administered Point of Care Testing: Blood Glucose: 10:46 Blood Glucose: 68 mg/dL; mh5 Ranges: Critical Glucose Levels:Adult <50 mg/dl or >400 mg/dl <40 mg/dl or >180 mg/dl Disposition: 13:38 Co-signature as Attending Physician, Scotty Concepcion MD I agree with the assessment and [facility] plan of care. Disposition: 11/06/18 09:20 Hospitalization ordered by Dante Best for Observation. Preliminary diagnosis are Chest pain, unspecified, Displacement of vascular dialysis catheter. - Bed requested for Telemetry/MedSurg (observation). - Status is Observation. ph - Condition is Stable. - Problem is new. - Symptoms have improved. UTI on Admission? No Signatures: Dispatcher [employer] Scotty Chatterjee MD MD cha Roszak, Josh, PA PA jr8 Brenda Solitario RN RN ak1 Iliana Hamilton RN RN Ivonne Kapadia Corrections: (The following items were deleted from the chart) 09:19 08:09 Eyes: Negative for injury, pain, redness, and discharge, ENT: Negative for jr8 injury, pain, and discharge, Neck: Negative for injury, pain, and swelling, Cardiovascular: Negative for chest pain, palpitations, and edema, Respiratory: Negative for shortness of breath, cough, wheezing, and pleuritic chest pain, Abdomen/GI: Negative for abdominal pain, nausea, vomiting, diarrhea, and constipation, Back: Negative for injury and pain, MS/Extremity: Negative for injury and deformity, Skin: Negative for injury, rash, and discoloration, Neuro: Negative for headache, weakness, numbness, tingling, and seizure, jr8 09:43 09:20 Hospitalization Ordered by Dante Best MD for Observation. Preliminary diagnosis eb is Chest pain, unspecified; Displacement of vascular dialysis catheter. Bed requested for Telemetry/MedSurg (observation). Status is Observation. Condition is Stable. Problem is new. Symptoms have improved. UTI on Admission? No. jr8 11:43 09:43 11/06/2018 09:20 Hospitalization Ordered by Dante Best MD for Observation. eb Preliminary diagnosis is Chest pain, unspecified; Displacement of vascular dialysis catheter. Bed requested for Telemetry/MedSurg (observation). Status is Observation. Condition is Stable. Problem is new. Symptoms have improved. UTI on Admission? No. eb 12:27 11:43 11/06/2018 09:20 Hospitalization Ordered by Dante Best MD for Observation. ph Preliminary diagnosis is Chest pain, unspecified; Displacement of vascular dialysis catheter. Bed requested for Telemetry/MedSurg (observation). Status is Observation. Condition is Stable. Problem is new. Symptoms have improved. UTI on Admission? No. eb
--- NOTE | 2018-11-06 10:21 | EKG ---
Test Date: 2018-11-06 Test Time: 07:04:24 Manager Golf: RR MEASUREMENT RESULTS: Intervals: Rate: 73 AL: 172 QRSD: 88 QT: 418 QTc: 460 [place]: P: 54 AL: 172 QRS: 54 T: 39 INTERPRETIVE STATEMENTS: Normal sinus rhythm Possible Left atrial enlargement Borderline ECG Compared to ECG 08/22/2018 21:16:18 No significant changes Electronically Signed On 11-06-18 10:21:15 RELAY REPAIRER by Bong Coleman
[2018-11-06] MEDS ORDERED: ONDANSETRON 4 MG/2 ML VIAL IV PRN (12:31)
[2018-11-06] MEDS ORDERED: ACETAMINOPHEN 500 MG TAB PO PRN (12:31)
[2018-11-06 13:03] VITALS: BMI 30.4
[2018-11-06] MEDS ORDERED: CEFAZOLIN/SWI 1gm 1 GM/10 ML SYR IV SCH (13:30)
[2018-11-06] MEDS ORDERED: NITROGLYCERIN 0.4 MG/TAB SL PRN (14:42)
[2018-11-06] MEDS ORDERED: HYDROCODONE/APAP 5/325 MG TAB PO PRN (14:42)
[2018-11-06] MEDS ORDERED: EPOETIN ALFA 10,000 UNIT/ML VIAL IV SCH (15:00)
[2018-11-06] MEDS ORDERED: D50W 25 GM/50 ML SYRINGE IV PRN (16:31)
[2018-11-06] MEDS ORDERED: GLUCAGON 1 MG/VIAL IM PRN (16:31)
[2018-11-06] MEDS: INSULIN -REGULAR HUMAN 50 UNIT/0.5 ML ML SQ SCH ×2 (16:47→21:00)
[2018-11-06] MEDS ORDERED: GABAPENTIN 100 MG CAP PO PRN (16:57)
--- NOTE | 2018-11-06 17:04 | P.HP ---
Certification for Inpatient Patient admitted to: Observation With expected LOS: <2 Midnights Practitioner: I am a practitioner with admitting privileges, knowledge of patient current condition, hospital course, and medical plan of care. Services: Services provided to patient in accordance with Admission requirements found in Title 42 Section 412.3 of the Code of Federal Regulations Patient History Date of Service: 11/06/18 Reason for admission: DIALYSIS CATHETER CAME OFF. History of Present Illness: MR. LYLES HAS A COMPLICATED HISTORY OF DM, DIABETIC NEUROPATHY, DIABETIC VASCULAR DISEASE WITH CAD, DIABETIC NEPHROPATHY ON HD, HAS SOME RASH OFF AND ON THAT LOOK LIKE DISSEMINATED HERPES ZOSTER AND HE HAS BEEN EVALUATED BY MANY SPECIALTY DOCTORS AT [facility] FOR INCURABLES. HE COMES IN WITH NEED OF NEW CATHETER URGENTLY. DR MALAVE AND DR. RIGGINS ON CASE. Allergies No Known Allergies Allergy (Verified 12/06/17 14:32) Home Medications: Aspirin [Adult Aspirin] 81 mg PO DAILY 11/06/18 Bumetanide [Bumex] 2 mg PO BID 11/06/18 Carvedilol [Coreg] 6.25 mg PO BID 11/06/18 Ferric Citrate [Auryxia] 210 mg PO DAILY 6PM 11/06/18 Gabapentin [Neurontin] 100 mg PO BID PRN 11/06/18 Hydrocodone Bit/Acetaminophen [Hydrocodon-Acetaminophen 5-325] 1 each PO Q12HR PRN 11/06/18 Insulin Glargine,Hum.rec.anlog [Lantus Solostar] 35 unit SQ DAILY 11/06/18 Lactobacillus Acidophilus [Acidophilus] 2 each PO DAILY 11/06/18 Losartan Potassium 100 mg PO DAILY 11/06/18 Nifedipine [Nifedipine ER] 30 mg PO DAILY 11/06/18 Nitroglycerin 0.4 mg SL DIRECTED PRN 11/06/18 Prasugrel HCl 10 mg PO DAILY 11/06/18 Tamsulosin [Flomax] 0.4 mg PO BEDTIME 11/06/18 Thiamine HCl [Vitamin B-1] 100 mg PO DAILY 11/06/18 Zolpidem Tartrate [Ambien] 10 mg PO BEDTIME 11/06/18 - Past Medical/Surgical History Has patient received pneumonia vaccine in the past: Yes Diabetic: Yes -: HTN -: IDDM -: CKD -: CAD -: High Cholesterol -: Peripheral Neuropathy -: appendectomy -: cholecystectomy -: amputation right 2nd toe -: 2 stent placements 11/02/18 - Family History Mother -: Heart disease, Diabetes, Kidney disease Notes: HD Father -: Heart disease, Hypertension, Stroke - Social History Smoking Status: Never smoker Alcohol use: Yes CD- Drugs: No Caffeine use: Yes Place of Residence: Home Review of Systems 10-point ROS is otherwise unremarkable General: Weakness, Malaise Integumentary: Rash (R SHOULDER 3 SMALL VESICLES.) Physical Examination - Vital Signs Temperature: 98.3 F Blood Pressure: 156/70 Pulse: 74 Respirations: 15 Pulse Ox (%): 96 - Physical Exam General: Alert, Mild distress HEENT: Atraumatic, PERRLA, Mucous membr. moist/pink, EOMI, Sclerae nonicteric Neck: Supple, 2+ carotid pulse no bruit, No LAD, Without JVD or thyroid abnormality Respiratory: Clear to auscultation bilaterally, Normal air movement Cardiovascular: Regular rate/rhythm, Normal S1 S2, Other (GOOD L RADIAL PULSE. HE HAS SOME BURNING OF THE HAND.) Gastrointestinal: Normal bowel sounds, No tenderness Musculoskeletal: No tenderness Integumentary: No rashes Neurological: Normal gait, Normal speech, Normal strength at 5/5 x4 extr, Normal tone, Normal affect Lymphatics: No axilla or inguinal lymphadenopathy - Studies Laboratory Data (last 24 hrs) 11/06/18 07:37: PT 11.7, INR 0.99 11/06/18 07:37: WBC 4.1 L, Hgb 9.8 L, Hct 29.3 L, Plt Count 235 11/06/18 07:37: Sodium 137, Potassium 4.2, BUN 30 H, Creatinine 5.11 H*, Glucose 66 L, Magnesium 2.3, Total Bilirubin 0.5, AST 19, ALT 20, Alkaline Phosphatase 140 H Assessment and Plan - Problems (Diagnosis) (1) Diabetic nephropathy Current Visit: Yes Status: Acute Plan: HD TO BE DONE. DR. RIGGINS WILL DO HD CATHETER. HE CAN GO HOME IN AM. Qualifiers: Diabetes mellitus type: type 2 Qualified Code(s): E11.21 - Type 2 diabetes mellitus with diabetic nephropathy (2) Hypertension, uncontrolled Onset Date: 12/26/16 Current Visit: No Status: Chronic Plan: MANAGED BY DR. MALAVE (3) Hand paresthesia Current Visit: Yes Status: Acute (4) Vasculitis Current Visit: Yes Status: Suspected Plan: CHECK SED RATE, SESAR, ANCA ETC. DW DR. MALAVE. HE HAS PORPHYRIA DIAGNOSIS FROM [facility] PER DR. MALAVE. (5) Diabetes mellitus Current Visit: No Status: Chronic Plan: FINGER STICKS AC AND HS MOD SCALE. FU IN OFFICE. HE HAS BEEN HOSPITALS MORE THAN AT OFFICE FOR LAST ONE YEAR. PROGNOSIS IS GUARDED. Qualifiers: Diabetes mellitus type: type 2 - Advance Directives Does patient have a Living Will: No Does patient have a Durable POA for Healthcare: No
[2018-11-06] MEDS ORDERED: HOME MED 1 EA UNK (Ferric Citrate [Auryxia] 210 MG) PO SCH (18:00)
[2018-11-06 18:28] LABS: Urine Appearance CLEAR; Urine Bilirubin NEGATIVE (NEG); Urine Blood TRACE (NEG); Urine Color YELLOW; Urine Glucose 1+ (NEG); Urine Protein 3+ (NEG); Urine Urobilinogen 0.2 mg/dL (0.2-1.0); Urine pH 7.5 (5.0-7.0)
--- NOTE | 2018-11-06 18:42 | RAD REPORT ---
EXAM DESCRIPTION: US - Upper Ext Artery Uni Marquis - 11/06/2018 6:29 pm CLINICAL HISTORY: Left arm paresthesia COMPARISON: None. TECHNIQUE: Sonographic evaluation of the left upper extremity arterial tree performed. Waveforms and velocity values were obtained. FINDINGS: No occlusion or focal flow restricting lesion identifiable. No significant atherosclerotic changes are identifiable. Left subclavian peak systolic velocity was 143 cm/second. Left axillary ve locity was 134 cm/second. Mid brachial artery velocity was 129 cm/second. Radial artery measured 84 c m/second with the ulnar artery 126 cm/second. IMPRESSION: No left upper extremity arterial occlusion, flow restricting lesion or significant ather osclerotic change.
[2018-11-06 18:50] LABS: Urine Microscopic Reflex ORDER UMIC
--- NOTE | 2018-11-06 18:51 | CON ---
Date of Consultation: 11/06/2018 Reason For Consultation: The patient's dialysis catheter fell out. History Of Present Illness: The patient is a 58-year-old gentleman, who is on end-stage renal diseas e, on dialysis, who had a catheter placed back couple of months ago in [facility] because his peritoneal dialysis was not working, prior to that, I had put a catheter in him a year and a half ag o and that was removed once he started peritoneal dialysis. He states that he was sleeping and he no ticed that the catheter was almost completely out and the time he got to the hospital it was out. St ates that last Monday he had a coronary angiogram with 2 stents placed and he is on blood thinners. He does not recall which ones. He is on aspirin and another blood thinner. No fevers or chills. No sore throat, runny nose, cough, headaches, or dizziness. No chest pain. Review of Systems: Otherwise, unremarkable. Past Medical History: Diabetes, end-stage renal disease, peripheral neuropathy, hypertension. Past Surgical History: Cholecystectomy, right toe amputation, appendectomy, peritoneal dialysis cath eter placement. Allergies: NONE. Medications: The patient is on carvedilol, gabapentin, bumetanide, nifedipine, Lyrica, Lantus, tamsu losin, aspirin, losartan, nitroglycerin, zolpidem, acidophilus. Social History: The patient does not smoke or drink alcohol. Family History: Noncontributory. Physical Examination: Vital signs: Stable. He is afebrile. General: He is awake, alert, and oriented x3. Head and Neck: Cranial nerves 2 through 12 grossly within normal limits. No neck masses. No JVD. Throat clear. Neck is supple. Chest: Clear. Heart: S1, S2. Abdomen: Soft. Extremities: Neurovascularly intact. Neuro: Nonfocal. Laboratory Data: Reviewed. Assessment: End-stage renal disease in the patient that requires dialysis with the loss of vascular access. Recommendation: We will discuss with the best worker if we can hold the anticoagulant for one day, so we can safely put in the catheter tomorrow, following which we will place the Tesio catheter. The patient understands the risks, benefits, and alternatives, and agrees to procedure. /MODL Voice ID: [id number] Report ID: [id number]
[2018-11-06 18:57] LABS: Urine Bacteria NONE SEEN /HPF (NONE SEEN); Urine Culture Reflex Order NOT NEEDED; Urine RBC <5 /HPF (NONE SEEN)
--- NOTE | 2018-11-06 20:54 | CON ---
Date of Consultation: 11/06/2018 NEPHROLOGY CONSULTATION Additional Consulting Physician: Dante Best MD Reason For Consultation: Elevated BUN and creatinine, hypertension, hyperlipidemia, end-stage renal disease, alkalosis. History Of Present Illness: This is a pleasant 58-year-old gentleman, well known to me from the dial ysis with significant past medical history of diabetes, complicated with neuropathy and nephropathy, hypertension, hyperlipidemia, coronary artery disease status post OH complicated with congestive hear t failure status post PTCA last week, end-stage renal disease, on home hemodialysis Monday, Monday , and Monday through right IJ PermCath. The patient was in his regular state of health. Apparently, he received dialysis yesterday. After dialysis, started having some chest tightness, feeling anxiou s and did not sleep well with nausea without any vomiting. No sweating. No diaphoresis. Then, when he woke up in the morning, found to have his catheter had pulled out. The patient reported to the ospital and the hospital found the catheter is out. No pneumothorax. No bleeding. Troponin was mar ginally elevated. For that reason, the patient was admitted. The patient denied any real chest pain , no diaphoresis. Lab show alkalosis. Past Medical History: Include, 1.Hypertension. 2.Diabetes complicated with neuropathy and nephropathy. 3.Coronary artery disease, status post OH, status post PTCA last week complicated with congestive he art failure. 4.End-stage renal disease, used to be on PD, switched to home hemodialysis secondary to encephalopat hy secondary to acyclovir. Social History: Active smoker. Active alcohol. Denies drug abuse. Allergies: NO KNOWN DRUG ALLERGIES. Past Surgical History: Includes, 1.Appendectomy. 2.PermCath placement and removal. 3.PD catheter placement. 4.Cholecystectomy. 5.Amputation of the big toe. Family History: Positive for diabetes and hypertension. Current Medications: At home it includes, 1.Ambien. 2.Thiamine. 3.Flomax. 4.Prasugrel 10 mg. 5.Nitroglycerin. 6.Nifedipine 30. 7.Losartan 100. 8.Insulin. 9.Gabapentin. 10.Carvedilol 6.25. 11.Bumex. 12.Aspirin. Review of Systems: Head and Neck: No red eye. No ear pain. GI: No nausea, no vomiting. : No polyuria, no dysuria, no hematuria. Batch Room Technician: Not applicable. Respiratory: Has mild shortness of breath. Cardiovascular: No chest pain. Endocrine: No polydipsia. Skin: No rash. Neurologic: Alert, oriented, has neuropathy. Musculoskeletal: Has low back pain. Physical Examination: Vital Signs: When I saw the patient, blood pressure 168/79, pulse of 79, afebrile. Chest: Faint crackles in the base. Heart: S1 and S2, systolic murmur. Abdomen: Soft, nontender. Extremities: Trace edema. Neurological: Alert and oriented x3, no focal. Vascular: PermCath has been pulled out with cuff intact. Exit site no infection. Laboratory Data: WBC 4.1, H and H of 9.8 and 29.3, platelets of 235. Sodium 137, potassium 4.2, bic arb 30, BUN 30, creatinine 5.1, and calcium 8.3. Chest x-ray, cardiomegaly with congestion. Assessment And Plan: 1.End-stage renal disease, over-volume. I am going to go ahead and resume home medication, and I am going to resume Lasix for the patient and we will follow up. 2.Over-volume, congestive heart failure. I am going to place the patient back on the Lasix and we w ill try to challenge the patient to establish better volume control. 3.Hypertension, uncontrolled. We will resume home medication. 4.Alcohol dependence. We will resume thiamine. 5.Dropped PermCath. We will consult Surgery for replacement. Unfortunately, the patient recently h as a stent. I am going to be hesitant to stop aspirin or Prasugrel given the risk of having restenos is of the stent. We will discuss with Surgery. 6.Diabetes as by primary. MA/MODL Voice ID: [id number] Report ID: [id number]
[2018-11-06] MEDS ORDERED: ZOLPIDEM TARTRATE 10 MG TABLET PO SCH (21:00)
[2018-11-06] MEDS ORDERED: TAMSULOSIN 0.4 MG SR CAP PO SCH (21:00)
[2018-11-06] MEDS: CARVEDILOL 6.25 MG TAB PO SCH (22:07)
--- NOTE | 2018-11-06 23:03 | CON ---
CARDIOLOGY CONSULT History: Mr. Koehler came to the hospital because his dialysis catheter was inadvertently pulled ou t. He needs to have it replaced. He has been on hemodialysis for several years. Five days ago, he was at [facility] and underwent a routine cardiac cath as part of a pre-renal transplant asse ssment and he was found to have CAD. Two stents were placed. He was not having chest pain then. He is not having chest pain now. We do not know what vessels were stented or any of the other results of the cardiac cath. He has been on hemodialysis for several years. Past Medical History: He has longstanding diabetes and hypertension. He is on Prasugrel because of stents placed just 5 days ago. Medications: Outpatient medications have been, 1.Thiamine. 2.Prasugrel. 3.Carvedilol. 4.Flomax. 5.Bumex. 6.Losartan. 7.Aspirin. 8.Nitroglycerin. 9.Zolpidem. 10.Gabapentin. 11.Ferric citrate. 12.Nifedipine. 13.Insulin. Physical Examination: General: He is alert, oriented, and pleasant. His chief complaint is that his left hand goes numb s ometimes and every time he goes to sleep, he wakes up with numbness, sits up and shakes it. Vital signs: Height 5 feet 8 inches, weight 200 pounds, and blood pressure 156/70, and heart rate 74 . Lungs: Clear. Heart: Exam within normal limits. Abdomen: Soft. Extremities: Diminished distal pulses. Laboratory Data: Electrocardiogram reveals sinus rhythm, left atrial abnormality, otherwise, it is n ormal. Troponins have been measured and there is one of 0.50 and one of 0.51. They were measured roughly 7 hours apart. Impression And Plan: Mr. Koehler is probably is not having unstable angina. His troponins will pro bably all be about the same. He needs absolutely to continue his Prasugrel. I would not allow him t o stop even one dose of it and it is ordered. He is planning on getting another catheter for dialysi s tomorrow. It is definitely not safe to hold the Prasugrel or aspirin while this is done. CHET/QUINTIN Voice ID: [id number] Report ID: [id number]
[2018-11-07 06:03] LABS: Absolute Lymphocytes (CBC) 1.4 K/uL (0.7-4.9); Absolute Monocytes 0.9 K/uL (0.1-1.3); Absolute Neutrophil 1.9 K/uL (1.8-8.0); Basophils % 1.5 % (0-1.3); Eosinophils % 5.4 % (0-4.4); Hematocrit 24.2 % (39.6-49.0); Lymphocytes % 31.6 % (15.3-44.8); Monocytes % 19.1 % (3.3-12.3); RBC Red Blood Cell Count 2.78 M/uL (4.33-5.43)
[2018-11-07 06:13] LABS: Potassium 4.8 mmol/L (3.5-5.1)
[2018-11-07] MEDS: INSULIN -REGULAR HUMAN 50 UNIT/0.5 ML ML SQ SCH ×3 (07:30→16:30)
[2018-11-07] MEDS: CARVEDILOL 6.25 MG TAB PO SCH (07:58)
[2018-11-07] MEDS ORDERED: NS 0.9% VIAL 10 ML ONE (08:15)
[2018-11-07] MEDS ORDERED: NA CHLORIDE 0.9% 100 ML IV ONE (08:16)
[2018-11-07] MEDS ORDERED: LIDOCAINE 1% MPF 30 ML VIAL ONE (08:16)
[2018-11-07] MEDS ORDERED: HEPARIN 5000 UNIT/ML 1 ML VIAL ONE (08:16)
[2018-11-07] MEDS ORDERED: LIDOCAINE 1% 20 ML MDV ONE (08:17)
[2018-11-07] MEDS ORDERED: CEFAZOLIN SODIUM 1 GM/VIAL ONE (08:18)
[2018-11-07] MEDS ORDERED: NA CHLORIDE 0.9% 0 ML ONE (08:18)
[2018-11-07] MEDS ORDERED: NA CHLORIDE 0.9% 500 ML ONE (08:37)
[2018-11-07 09:00] LABS: Blood Morphology Comment NOT SEEN (NOT SEEN); Platelet Estimate ADEQ
[2018-11-07] MEDS ORDERED: HOME MED 1 EA UNK (Losartan Potassium [Losartan Potassium] 100 MG) PO SCH (09:00)
[2018-11-07] MEDS ORDERED: ASPIRIN EC 81 MG TAB PO SCH (09:00)
[2018-11-07] MEDS ORDERED: NIFEDIPINE XL 30 MG TABLET PO SCH (09:00)
[2018-11-07] MEDS ORDERED: LOSARTAN POTASSIUM 50 MG TABLET PO SCH (09:00)
[2018-11-07] MEDS ORDERED: INSULIN GLARGINE 100 UNITS/ML SQ SCH (09:00)
[2018-11-07] MEDS ORDERED: THIAMINE HCL 100 MG TABLET PO SCH (09:00)
[2018-11-07] MEDS ORDERED: INSULIN GLARGINE HUM REC ANLOG 35 UNIT SQ SCH (09:00)
[2018-11-07] MEDS ORDERED: BUMETANIDE 1 MG/4 ML VIAL IV SCH (09:00)
[2018-11-07] MEDS ORDERED: LACTOBACILLUS/ACIDOPHILUS TAB PO SCH (09:00)
[2018-11-07] MEDS ORDERED: PRASUGREL (EFFIENT) 10 MG TAB PO SCH (09:00)
[2018-11-07] MEDS ORDERED: LACTOBACILLUS ACIDOPHILUS PO SCH (09:00)
[2018-11-07] MEDS ORDERED: PROPOFOL 200 MG/20 ML VIAL IV ONE (09:07)
[2018-11-07] MEDS ORDERED: FENTANYL CITR 100 MCG/2 ML ONE (09:08)
[2018-11-07] MEDS ORDERED: LIDOCAINE 2% MPF 5 ML VIAL ONE (09:08)
--- NOTE | 2018-11-07 09:51 | P.OP ---
Preoperative diagnosis: ESRD Postoperative diagnosis: same Primary procedure: DIANE Rich Secondary procedure: Fluoroscopy Anesthesia: General Estimated blood loss: min Specimen: none Findings: as above Complications: None Transferred to: Recovery Room Condition: Good
[2018-11-07] MEDS ORDERED: EPHEDRINE SULF 50 MG/10 ML SYR ONE (09:52)
--- NOTE | 2018-11-07 10:24 | RAD REPORT ---
EXAM DESCRIPTION: RAD - Fluoroscopy <1 Hour - 11/07/2018 10:19 am CLINICAL HISTORY: Venous catheter insertion. HEMODIALYSIS CATHETER COMPARISON: Fluoroscopy <1 Hour dated 08/15/2017 FINDINGS: Fluoroscopy time: 0.1 minutes.
--- NOTE | 2018-11-07 10:53 | RAD REPORT ---
EXAM DESCRIPTION: RAD - Chest Single View - 11/07/2018 10:42 am CLINICAL HISTORY: S/P Tesio Chest pain. COMPARISON: Chest Single View dated 11/06/2018; Chest Single View dated 08/22/2018; Chest Single View dated 07/23/2018; Chest Single View dated 07/15/2018 FINDINGS: Portable technique limits examination quality. Small left lung base pleural and parenchymal opacity may represent atelectasis or aspiration. The hea rt is normal in size. Right-sided venous catheter has tip in the SVC.No pneumothorax. IMPRESSION: No postprocedure pneumothorax.
[2018-11-07] MEDS ORDERED: ONDANSETRON HCL 40 MG/20 ML VIAL ONE (11:11)
[2018-11-07 16:25] VITALS: O2SAT 93
[2018-11-07] MEDS ORDERED: SEVELAMER CARBONATE 800 MG TABLET PO SCH (17:00)
--- NOTE | 2018-11-07 17:40 | PN ---
Date of Progress Note: 11/07/2018 Subjective: Patient is doing well status post PermCath exchange. The patient is complaining numbnes s in the left hand. Objective: Vital Signs: Blood pressure 157/58, pulse of 72. Chest: Clear to auscultation. Heart: S1-S2, regular. Abdomen: Soft, nontender. Extremities: Trace edema. Laboratory Data: H and H 8.1/24.2. Sodium 142, potassium 4.8, bicarb 28, BUN 51, creatinine 7.4, ca lcium 7.6. Current Medications: The patient on include Flomax, Epogen, Prasugrel, carvedilol, losartan, nifedip ine, gabapentin, Bumex. Assessment And Plan: 1.End-stage renal disease, slightly on the over volume side. We will dialyze the patient and we katie l challenge. 2.Hypertension, controlled, optimal, continue current medication. 3.Over volume. We will challenge the patient with fluid today. 4.Anemia of chronic kidney disease. Continue Epogen. 5.Secondary hyperparathyroid, continue his binder. 6.Porphyria with neuropathy. The patient is going to need neurology eval as outpatient. 7.Malfunction PermCath, status post fall, status post exchange. We will use it today and we will fo llow up. YANIRA Voice ID: [id number] Report ID: [id number]
[2018-11-07] MEDS ORDERED: NA CHLORIDE 0.9% 1,000 ML IV PRN (18:15)
[2018-11-07] MEDS ORDERED: ALBUMIN HUMAN 25% 50 ML IV SCH (19:00)
[2018-11-07 20:06] VITALS: BP 178/79; TEMP 97.3
--- NOTE | 2018-11-07 20:48 | P.DS ---
Admission Date: 11/06/18 Discharge Date: 11/07/18 Disposition: ROUTINE DISCHARGE Discharge Condition: FAIR Reason for Admission: DIALYSIS CATHETER CAME OFF. - Problems (1) Diabetic nephropathy Onset Date: 11/07/18 Status: Acute Qualifiers: Diabetes mellitus type: type 2 Qualified Code(s): E11.21 - Type 2 diabetes mellitus with diabetic nephropathy (2) Hypertension, uncontrolled Onset Date: 12/26/16 Status: Chronic (3) Hand paresthesia Onset Date: 11/07/18 Status: Acute (4) Vasculitis Onset Date: 11/07/18 Status: Suspected (5) Diabetes mellitus Status: Chronic Qualifiers: Diabetes mellitus type: type 2 Brief History of Present Illness: MR. LYLES HAS A COMPLICATED HISTORY OF DM, DIABETIC NEUROPATHY, DIABETIC VASCULAR DISEASE WITH CAD, DIABETIC NEPHROPATHY ON HD, HAS SOME RASH OFF AND ON THAT LOOK LIKE DISSEMINATED HERPES ZOSTER AND HE HAS BEEN EVALUATED BY MANY SPECIALTY DOCTORS AT [facility]. HE COMES IN WITH NEED OF NEW CATHETER URGENTLY. DR MALAVE AND DR. RIGGINS [facility] [place] [facility] HAS MANY MEDICAL ISSUES. HE ALSO HAS PORPHYRIA INDUCED RASH PER DOCTORS IN [facility]. THIS IS NOT HERPES ZOSTER. HE HAS L SIDE HAND BURNING AND VASCULAR STUDY IS NEGATIVE. HE WILL GO TO DR. NEVAREZ I TOLD HIM IT SOUNDS MORE LIKE NEUROPATHY. HE HAD A NEW DIALYSIS CATHETER AND HE IS SENT HOME IN STABLE CONDITION. Vital Signs/Physical Exam: Temp Pulse Resp BP Pulse Ox 97.3 F 68 16 178/79 H 100 11/07/18 20:06 11/07/18 20:06 11/07/18 20:06 11/07/18 20:06 11/07/18 20:06 Laboratory Data at Discharge: WBC 4.5 K/uL (4.3-10.9) 11/07/18 05:23 Hgb 8.1 g/dL (13.6-17.9) L 11/07/18 05:23 Hct 24.2 % (39.6-49.0) L D 11/07/18 05:23 Plt Count 203 K/uL (152-406) 11/07/18 05:23 PT 11.7 SECONDS (9.5-12.5) 11/06/18 07:37 INR 0.99 11/06/18 07:37 Sodium 142 mmol/L (136-145) 11/07/18 05:23 Potassium 4.8 mmol/L (3.5-5.1) 11/07/18 05:23 BUN 51 mg/dL (7-18) H D 11/07/18 05:23 Creatinine 7.48 mg/dL (0.55-1.3) H* D 11/07/18 05:23 Glucose 100 mg/dL (74-106) 11/07/18 05:23 Magnesium 2.3 mg/dL (1.8-2.4) 11/06/18 07:37 Total Bilirubin 0.5 mg/dL (0.2-1.0) 11/06/18 07:37 AST 19 U/L (15-37) 11/06/18 07:37 ALT 20 U/L (12-78) 11/06/18 07:37 Alkaline Phosphatase 140 U/L (45-117) H 11/06/18 07:37 Troponin I 0.50 ng/mL (0.0-0.045) H 11/06/18 13:02 Home Medications: Aspirin [Adult Aspirin] 81 mg PO DAILY 11/06/18 Bumetanide [Bumex] 2 mg PO BID 11/06/18 Carvedilol [Coreg*] 6.25 mg PO BID 11/06/18 Ferric Citrate [Auryxia] 210 mg PO DAILY 6PM 11/06/18 Gabapentin [Neurontin*] 100 mg PO BID PRN 11/06/18 Hydrocodone Bit/Acetaminophen [Hydrocodon-Acetaminophen 5-325] 1 each PO Q12HR PRN 11/06/18 Insulin Glargine,Hum.rec.anlog [Lantus Solostar] 35 unit SQ DAILY 11/06/18 Lactobacillus Acidophilus [Acidophilus] 2 each PO DAILY 11/06/18 Losartan Potassium 100 mg PO DAILY 11/06/18 Nifedipine [Nifedipine ER] 30 mg PO DAILY 11/06/18 Nitroglycerin 0.4 mg SL DIRECTED PRN 11/06/18 Prasugrel HCl 10 mg PO DAILY 11/06/18 Tamsulosin [Flomax] 0.4 mg PO BEDTIME 11/06/18 Thiamine HCl [Vitamin B-1] 100 mg PO DAILY 11/06/18 Zolpidem Tartrate [Ambien*] 10 mg PO BEDTIME 11/06/18 Diet: Renal Followup: Guille Purcell MD [ACTIVE - CAN ADMIT] - Dante Best MD [Primary Care Provider] -
--- NOTE | 2018-11-07 21:04 | OP ---
Date of Procedure: 11/07/2018 Surgeon: Bruno Lowery MD Preoperative Diagnosis: End-stage renal disease. Postoperative Diagnosis: End-stage renal disease. Procedures: Placement of right IJ Tesio catheter and interpretation of intraoperative fluoroscopy. Estimated Blood Loss: Minimal. Specimen: None. Findings: Normal anatomy. Anesthesia: General. Complications: None. Disposition: The patient tolerated the procedure in stable condition and was taken to Recovery in go od general condition. Description Of Procedure: The patient was brought to the OR and placed in supine position. General anesthesia was begun. The patient was prepped and draped in usual sterile fashion. Lidocaine 1% was infiltrated locally. An 18-gauge needle was used to access the right IJ vein. Guidewire was passed . Position was confirmed with fluoroscopy. A counterincision was made on the right anterior chest. Tunneling device was used to tunnel the catheter between the 2 wounds. Seldinger technique was used . Then, tip of the catheter was placed in the SVC under direct fluoroscopy, and then catheter was fl ushed with heparin and packed with heparin with good blood flow. Then, 3-0 chromic was used to appro ximate the subcutaneous tissue and close the skin, and 3-0 nylon was used to secure the tube to the c hest wall. Sterile dressing was applied. The patient was awakened and taken to Recovery in good general conditi on. /MODL Voice ID: [id number] Report ID: [id number]
[2018-11-13 20:50] LABS: HBsAG Nonreactive (Nonreactive)
== END 2018-11-07 20:07 | disposition home or self-care (01) ==
LOC: ER 06:40 → ERHOLD 10:38 → 2ND 12:21
PROVIDERS: ADMIT Internal Medicine; ATTEND Internal Medicine
PROC: 5A1D70Z Performance of Urinary Filtration, Intermittent, Less than 6 Hours Per Day (ICD-10-PCS; 2018-11-07)
PROC: 05HM33Z Insertion of Infusion Device into Right Internal Jugular Vein, Percutaneous Approach (ICD-10-PCS; principal; 2018-11-07 08:45)
DX: T82.42XA Displacement of vascular dialysis catheter, initial encounter (principal); I13.2 Hypertensive heart and chronic kidney disease with heart failure and with stage 5 chronic kidney disease, or end stage renal disease; E11.22 Type 2 diabetes mellitus with diabetic chronic kidney disease; N18.6 End stage renal disease; I50.9 Heart failure, unspecified; E11.40 Type 2 diabetes mellitus with diabetic neuropathy, unspecified; E11.21 Type 2 diabetes mellitus with diabetic nephropathy; D63.1 Anemia in chronic kidney disease; I25.10 Atherosclerotic heart disease of native coronary artery without angina pectoris; E80.20 Unspecified porphyria; Z99.2 Dependence on renal dialysis; Z95.5 Presence of coronary angioplasty implant and graft; Z79.82 Long term (current) use of aspirin
CPT/HCPCS: 36415; 71045; 76000; 80048; 80076; 81003; 81015; 82962; 83735; 83880; 84484; 85025; 85610; 86317; 86706; 87340; 90935; 93005; 93931; 99285; C1752; G0378; J0690; J1644; J2405; J2704; J3010; Q4081

== ENCOUNTER 2018-11-08 00:16 | Emergency (ER) | payer BC, OTHER ==
[2012-05-18 13:19] VITALS: BP 151/81
--- NOTE | 2018-11-08 01:47 | ER ---
Nurse's Notes [facility] Name: Wade Koehler Age: 58 yrs Sex: Male : 1960 Arrival Date: 11/08/2018 Time: 00:19 Bed Waiting Private MD: Diagnosis: Assessment: 11/08 00:40 Reassessment: patient in not around and as per the supervisor heat treating, patient went to talk mg2 to a nurse in the floor to ask about his bleeding stent. 01:15 Reassessment: Pt has not returned. 01:46 Reassessment: Pt has not returned. ED Course: 00:19 Patient arrived in ED. ag3 Administered Medications: No medications were administered Outcome: 01:46 Patient left the ED. Signatures: Evelin Tobar RN RN Mahamed Doe RN RN [facility] Niki Honeycutt ag3
== END 2018-11-08 01:46 | disposition left against medical advice (07) ==
LOC: ER 00:16
DX: Z53.21 Procedure and treatment not carried out due to patient leaving prior to being seen by health care provider (principal)

== ENCOUNTER 2018-12-29 04:56 | Emergency (ER) | payer BC, OTHER ==
--- NOTE | 2018-12-29 06:16 | ER ---
Nurse's Notes [facility] Name: Wade Koehler Age: 58 yrs Sex: Male : 1960 Arrival Date: 12/29/2018 Time: 05:01 Bed 8 Private MD: Dante Best V Diagnosis: Periheral neuropathy. Chronic pain. Insomnia Presentation: 12/29 05:29 Presenting complaint: Patient states: Reports last night he was unable to sleep due to ea unbearable hand pain and burning. Pt reports the pain started two months ago but got worse last night, pt took two hydrocodone's and his sleep medication. Transition of care: patient was not received from another setting of care. Onset of symptoms was December 29, 2018. Risk Assessment: Do you want to hurt yourself or someone else? Patient reports no desire to harm self or others. Initial Sepsis Screen: Does the patient meet any 2 criteria? No. Patient's initial sepsis screen is negative. Does the patient have a suspected source of infection? No. Patient's initial sepsis screen is negative. Care prior to arrival: Medication(s) given: sleeping medication and hydrocodone x 2. 05:29 Method Of Arrival: Ambulatory ea 05:29 Acuity: WILFREDO 3 ea Triage Assessment: 05:34 General: Appears in no apparent distress. Behavior is calm, cooperative, appropriate ea for age. Pain: Complains of pain in right hand and left hand Pain currently is 9 out of 10 on a pain scale. Quality of pain is described as burning, Pain began 2 months ago. Neuro: Level of Consciousness is awake, alert, obeys commands, Oriented to person, place, time, situation. Cardiovascular: Patient's skin is warm and dry. Cardiovascular: Dialysis shunt: in the anterior aspect of right upper chest. Respiratory: Airway is patent Respiratory effort is even, unlabored, Respiratory pattern is regular, symmetrical. GI: No signs and/or symptoms were reported involving the gastrointestinal system. : No signs and/or symptoms were reported regarding the genitourinary system. Derm: Skin is dry. Historical: - Allergies: 05:50 NKA; ea - Home Meds: 05:50 zolpidem 10 mg Oral tab 1 tab once daily [Active]; vitamin b [Active]; Acidophilus 2 ea tabs daily Oral [Active]; aspirin 81 mg Oral TbEC 1 tab once daily [Active]; bumetanide 2 mg Oral tab 1 tab 2 times per day [Active]; carvedilol 6.25 mg Oral tab 1 tab daily [Active]; ferric citrate 20mg Oral [Active]; gabapentin 600 mg Oral tab 1 tab [Active]; Lantus 35 units Sub-Q daily [Active]; losartan 100 mg Oral tab 1 tab once daily [Active]; Lyrica 25 mg Oral 4 caps daily [Active]; nifedipine 30 mg Oral TbER 1 tab once daily [Active]; nitroglycerin 0.4 mg SL subl 1 tab [Active]; prasurgel 10 mg [Active]; tamsulosin 0.4 mg Oral cp24 1 cap once daily [Active]; - PMHx: 05:50 PERIPHERAL NEUROPATHY; Hypertension; ESRD; Dialysis; at home seven days a week'; ea Diabetes - IDDM; - Immunization history:: Adult Immunizations up to date. - Social history:: Smoking status: Patient uses tobacco products, denies chronic smoking, but will smoke occasionally. - Ebola Screening: : No symptoms or risks identified at this time. Screenin:29 Abuse screen: Denies threats or abuse. Nutritional screening: No deficits noted. ea Tuberculosis screening: No symptoms or risk factors identified. Fall Risk None identified. Assessment: 05:29 Reassessment: see triage note. ea 06:20 Reassessment: Patient appears in no apparent distress at this time. Patient and/or cc3 family updated on plan of care and expected duration. Pain level reassessed. Patient is alert, oriented x 3, equal unlabored respirations, skin warm/dry/pink. Dr. Pedersen discharged the patient home with prescription given. No IV cannula in situ. Patient left ER vitally stable and ambulatory. Vital Signs: 05:29 BP 164 / 71; Pulse 78; Resp 18; Temp 97.9(O); Pulse Ox 97% ; Weight 90.72 kg; Height 5 ea ft. 8 in. (172.72 cm); Pain 9/10; 06:22 BP 175 / 73; Pulse 64; Resp 18; Pulse Ox 100% ; ea 05:29 Body Mass Index 30.41 (90.72 kg, 172.72 cm) ea ED Course: 05:01 Patient arrived in ED. es 05:01 Dante Best MD is Private Physician. es 05:18 Mic Pedersen MD is Attending Physician. pkl 05:29 Arm band placed on right wrist. Patient placed in an exam room, on a stretcher, on ea pulse oximetry. 05:29 Patient has correct armband on for positive identification. Bed in low position. Call ea light in reach. Side rails up X 1. 05:33 Triage completed. ea 05:47 Amy Garcia, RN is Primary Nurse. ea 06:10 Hand Left 3 View XRAY In Process Unspecified. EDMS 06:10 Hand Right 3 View XRAY In Process Unspecified. EDMS 06:20 No provider procedures requiring assistance completed. Patient did not have IV access cc3 during this emergency room visit. Administered Medications: No medications were administered Outcome: 06:15 Discharge ordered by . pkl 06:20 Discharged to home ambulatory. cc3 06:20 Condition: stable 06:20 Discharge instructions given to patient, Instructed on discharge instructions, follow up and referral plans. medication usage, Demonstrated understanding of instructions, follow-up care, medications, Prescriptions given X 1. 06:24 Patient left the ED. cc3 Signatures: Dispatcher [employer] Mic Ag MD MD pkl Salyer, Edna es Antunez, Elena, RN RN Liz Chaparro cc3 Corrections: (The following items were deleted from the chart) 05:33 05:29 Care prior to arrival: None. ann juarez
--- NOTE | 2018-12-29 06:16 | EDPHYS ---
Physician Documentation [facility] Name: Wade Koehler Age: 58 yrs Sex: Male : 1960 Arrival Date: 12/29/2018 Time: 05:01 Bed 8 Private MD: Dante Best V ED Physician Mic Pedersen HPI: 12/29 05:31 This 58 yrs old Male presents to ER via Unassigned with complaints of Hand pkl Pain. 05:31 The patient or guardian reports pain. The complaints affect the left hand diffusely, pkl right hand diffusely. Context: Patient complained of pain both for 3 to 4 months. Unable to sleep.. Historical: - Allergies: 05:50 NKA; ea - Home Meds: 05:50 zolpidem 10 mg Oral tab 1 tab once daily [Active]; vitamin b [Active]; Acidophilus 2 ea tabs daily Oral [Active]; aspirin 81 mg Oral TbEC 1 tab once daily [Active]; bumetanide 2 mg Oral tab 1 tab 2 times per day [Active]; carvedilol 6.25 mg Oral tab 1 tab daily [Active]; ferric citrate 20mg Oral [Active]; gabapentin 600 mg Oral tab 1 tab [Active]; Lantus 35 units Sub-Q daily [Active]; losartan 100 mg Oral tab 1 tab once daily [Active]; Lyrica 25 mg Oral 4 caps daily [Active]; nifedipine 30 mg Oral TbER 1 tab once daily [Active]; nitroglycerin 0.4 mg SL subl 1 tab [Active]; prasurgel 10 mg [Active]; tamsulosin 0.4 mg Oral cp24 1 cap once daily [Active]; - PMHx: 05:50 PERIPHERAL NEUROPATHY; Hypertension; ESRD; Dialysis; at home seven days a week'; ea Diabetes - IDDM; - Immunization history:: Adult Immunizations up to date. - Social history:: Smoking status: Patient uses tobacco products, denies chronic smoking, but will smoke occasionally. - Ebola Screening: : No symptoms or risks identified at this time. ROS: 05:31 Eyes: Negative for injury, pain, redness, and discharge, ENT: Negative for injury, pkl pain, and discharge, Neck: Negative for injury, pain, and swelling, Cardiovascular: Negative for chest pain, palpitations, and edema, Respiratory: Negative for shortness of breath, cough, wheezing, and pleuritic chest pain, Abdomen/GI: Negative for abdominal pain, nausea, vomiting, diarrhea, and constipation, Back: Negative for injury and pain, : Negative for injury, bleeding, discharge, and swelling, Skin: Negative for injury, rash, and discoloration, Neuro: Negative for headache, weakness, numbness, tingling, and seizure. 05:31 MS/extremity: Positive for pain. Exam: 05:31 Head/Face: Normocephalic, atraumatic. Eyes: Pupils equal round and reactive to light, pkl extra-ocular motions intact. Lids and lashes normal. Conjunctiva and sclera are non-icteric and not injected. Cornea within normal limits. Periorbital areas with no swelling, redness, or edema. ENT: Nares patent. No nasal discharge, no septal abnormalities noted. Tympanic membranes are normal and external auditory canals are clear. Oropharynx with no redness, swelling, or masses, exudates, or evidence of obstruction, uvula midline. Mucous membranes moist. Neck: Trachea midline, no thyromegaly or masses palpated, and no cervical lymphadenopathy. Supple, full range of motion without nuchal rigidity, or vertebral point tenderness. No Meningismus. Chest/axilla: Normal chest wall appearance and motion. Nontender with no deformity. No lesions are appreciated. Cardiovascular: Regular rate and rhythm with a normal S1 and S2. No gallops, murmurs, or rubs. Normal PMI, no JVD. No pulse deficits. Respiratory: Lungs have equal breath sounds bilaterally, clear to auscultation and percussion. No rales, rhonchi or wheezes noted. No increased work of breathing, no retractions or nasal flaring. Abdomen/GI: Soft, non-tender, with normal bowel sounds. No distension or tympany. No guarding or rebound. No evidence of tenderness throughout. Back: No spinal tenderness. No costovertebral tenderness. Full range of motion. Skin: Warm, dry with normal turgor. Normal color with no rashes, no lesions, and no evidence of cellulitis. MS/ Extremity: Pulses equal, no cyanosis. Neurovascular intact. Full, normal range of motion. Neuro: Awake and alert, GCS 15, oriented to person, place, time, and situation. Cranial nerves II-XII grossly intact. Motor strength 5/5 in all extremities. Sensory grossly intact. Cerebellar exam normal. Normal gait. Vital Signs: 05:29 BP 164 / 71; Pulse 78; Resp 18; Temp 97.9(O); Pulse Ox 97% ; Weight 90.72 kg; Height 5 ea ft. 8 in. (172.72 cm); Pain 9/10; 06:22 BP 175 / 73; Pulse 64; Resp 18; Pulse Ox 100% ; ea 05:29 Body Mass Index 30.41 (90.72 kg, 172.72 cm) ea MDM: 05:18 Patient medically screened. pkl 06:10 Data reviewed: vital signs, nurses notes, radiologic studies, plain films. pkl 12/29 05:31 Order name: Hand Left 3 View XRAY pkl 12/29 05:31 Order name: Hand Right 3 View XRAY pkl Administered Medications: No medications were administered Disposition: 12/29/18 06:15 Discharged to Home. Impression: Periheral neuropathy. Chronic pain. Insomnia. - Condition is Stable. - Prescriptions for Ambien 10 mg Oral Tablet - take 1 tablet by ORAL route At bedtime As needed; 10 tablet. - Medication Reconciliation Form, Thank You Letter, Antibiotic Education, Prescription Opioid Use form. - Follow up: Private Physician; When: 2 - 3 days; Reason: Re-evaluation by your physician. - Problem is chronic. - Symptoms are unchanged. Signatures: Dispatcher [employer] EDMS Mic Pedersen MD MD pkAmy Kay RN RN Liz Chaparro cc3 Corrections: (The following items were deleted from the chart) 06:24 06:15 12/29/2018 06:15 Discharged to Home. Impression: Periheral neuropathy. Chronic cc3 pain. Insomnia. Condition is Stable. Forms are Medication Reconciliation Form, Thank You Letter, Antibiotic Education, Prescription Opioid Use. Follow up: Private Physician; When: 2 - 3 days; Reason: Re-evaluation by your physician. Problem is chronic. Symptoms are unchanged. pkl
[2018-12-29 06:29] VITALS: TEMP 97.9
[2018-12-29 06:30] VITALS: BP 175/73; O2SAT 100
--- NOTE | 2018-12-29 08:10 | RAD REPORT ---
EXAM DESCRIPTION: RAD - Hand Right 3 View - 12/29/2018 6:11 am CLINICAL HISTORY: Worsening bilateral hand pain, no precipitating event, history of peripheral neuro antwan, end-stage renal disease COMPARISON: None. FINDINGS: No fracture is identified. There is no dislocation or periosteal reaction noted. No acute or destructive bone process identifiable. Patient has dense arterial tree calcifications consistent with the end-stage renal disease history. Soft tissues are prominent. No air or foreign body. IMPRESSION: No acute right hand bone or joint abnormality. Mild soft tissue swelling with dense arterial tree calcifications.
--- NOTE | 2018-12-29 08:11 | RAD REPORT ---
EXAM DESCRIPTION: RAD - Hand Left 3 View - 12/29/2018 6:10 am CLINICAL HISTORY: Worsening nontraumatic left hand pain, peripheral neuropathy, end-stage renal dise ase COMPARISON: None. FINDINGS: No fracture, dislocation or periosteal reaction noted. No acute or destructive bone proces s. No significant degenerative change. Dense arterial tree calcifications are present. Soft tissues a re mildly prominent no air or foreign body. IMPRESSION: Mild soft tissue swelling or edema. No air or foreign body. No acute bone or joint finding.
== END 2018-12-29 06:24 | disposition home or self-care (01) ==
LOC: ER 04:56
DX: E11.42 Type 2 diabetes mellitus with diabetic polyneuropathy (principal); G89.29 Other chronic pain; G47.00 Insomnia, unspecified; E11.22 Type 2 diabetes mellitus with diabetic chronic kidney disease; I12.0 Hypertensive chronic kidney disease with stage 5 chronic kidney disease or end stage renal disease; N18.6 End stage renal disease; Z72.0 Tobacco use; Z79.82 Long term (current) use of aspirin; Z79.4 Long term (current) use of insulin; Z99.2 Dependence on renal dialysis
CPT/HCPCS: 99283

== ENCOUNTER 2019-02-22 15:28 | Emergency (ER) | payer BC, OTHER ==
--- OUTSIDE RECORDS SUMMARY | 2019-02-22 15:30 | XMS REPORT ---
:1960 [facility] Address [address] Hernandez [address] [place] [address] Care Team Providers Name Role Phone Unavailable Unavailable Unavailable Problems This patient has no known problems. Allergies, Adverse Reactions, Alerts This patient has no known allergies or adverse reactions. Medications This patient has no known medications. Encounters Start End Encounter Admission Attending Care Care Encounter Date/Time Date/Time Type Type Clinicians Facility Department ID 2019-02-21 2019-02-21 Out[id number] 11:31:00 11:31:00
--- NOTE | 2019-02-22 16:50 | ER ---
Nurse's Notes [facility] Name: Wade Koehler Age: 58 yrs Sex: Male : 1960 Arrival Date: 02/22/2019 Time: 15:31 Bed 14 Private MD: Dante Best V Diagnosis: Hypotension of hemodialysis-improved Presentation: 02/22 15:34 Presenting complaint: Patient states: was getting HD today and staff told him to come sv to ER because his BP was 70/35. Transition of care: patient was not received from another setting of care. Onset of symptoms was February 22, 2019. Initial Sepsis Screen: Does the patient meet any 2 criteria? No. Patient's initial sepsis screen is negative. Does the patient have a suspected source of infection? No. Patient's initial sepsis screen is negative. Care prior to arrival: None. 15:34 Method Of Arrival: Wheelchair sv 15:34 Acuity: WILFREDO 3 sv 15:45 Risk Assessment: Do you want to hurt yourself or someone else? Patient reports no bp desire to harm self or others. Triage Assessment: 15:40 General: Appears in no apparent distress. comfortable, Behavior is cooperative, bp appropriate for age, anxious. Pain: Denies pain. EENT: No deficits noted. Neuro: Level of Consciousness is awake, alert, obeys commands, Oriented to person, place, time, situation, Appropriate for age. Cardiovascular: No deficits noted. Respiratory: Airway is patent Respiratory effort is even, unlabored, Respiratory pattern is regular, symmetrical. GI: No signs and/or symptoms were reported involving the gastrointestinal system. : No signs and/or symptoms were reported regarding the genitourinary system. Derm: No deficits noted. Musculoskeletal: Circulation, motion, and sensation intact. Range of motion: intact in all extremities. Historical: - Allergies: 15:35 NKA; sv - PMHx: 15:35 Diabetes - IDDM; Dialysis; at home seven days a week'; ESRD; Hypertension; PERIPHERAL sv NEUROPATHY; - Immunization history:: Adult Immunizations up to date. - Social history:: Smoking status: Patient/guardian denies using tobacco. - Ebola Screening: : No symptoms or risks identified at this time. Screenin:40 Abuse screen: Denies threats or abuse. Denies injuries from another. Nutritional bp screening: No deficits noted. Tuberculosis screening: No symptoms or risk factors identified. Fall Risk None identified. Assessment: 15:40 General: SEE TRIAGE NOTE. bp 16:50 Reassessment: PT ASYMPTOMATIC, VS STABLE. bp 17:03 Reassessment: PT AGITATED, REFUSING D/C, STATING THE ER MUST COMPLETE THE PERITONEAL bp DIALYSIS HE INTERRUPTED EARLIER IN THE DAY. PROVIDER NOTIFIED. 17:30 Reassessment: D/C BEING RE-EVALUATED BY PROVIDER, DISPO ON HOLD. bp 18:23 Reassessment: PT D/C HOME AMBULATORY WITH FAMILY, DX WITH HYPOTENSION OF DIALYSIS. bp Vital Signs: 15:35 BP 117 / 65; Pulse 90; Resp 20; Temp 97.7; Pulse Ox 100% ; Weight 90.72 kg; Height 5 sv ft. 8 in. (172.72 cm); Pain 0/10; 16:00 BP 141 / 62; Pulse 86; Resp 14; Pulse Ox 96% ; bp 16:30 BP 139 / 59; Pulse 84; Resp 14; Pulse Ox 95% ; bp 18:24 BP 134 / 88; Pulse 86; Resp 14; Temp 98; Pulse Ox 98% ; bp 15:35 Body Mass Index 30.41 (90.72 kg, 172.72 cm) sv ED Course: 15:31 Patient arrived in ED. mr 15:31 Dante Best MD is Private Physician. mr 15:34 Triage completed. sv 15:35 Arm band placed on. sv 15:36 Charbel Rollins, RN is Primary Nurse. bp 15:40 Patient has correct armband on for positive identification. Bed in low position. Call bp light in reach. Side rails up X2. 15:57 Shira Germain FNP-C is PHCP. snw 15:57 Nikolay Newman MD is Attending Physician. snw 16:49 Dante Best MD is Referral Physician. snw 16:49 Guille Purcell MD is Referral Physician. snw 17:30 Inserted saline lock: 20 gauge in left antecubital area, using aseptic technique. Blood bp collected. 18:24 No provider procedures requiring assistance completed. IV discontinued, intact, bp bleeding controlled, No redness/swelling at site. Pressure dressing applied. Administered Medications: 17:30 Drug: NS 0.9% 250 ml Route: IV; Rate: bolus; Site: left antecubital; bp 18:25 Follow up: IV Status: Completed infusion; IV Intake: 250ml bp Intake: 18:25 IV: 250ml; Total: 250ml. bp Outcome: 16:49 Discharge ordered by MD. hewitt 18:25 Discharged to home ambulatory, with family. bp 18:25 Condition: stable 18:25 Discharge instructions given to patient, Instructed on discharge instructions, follow up and referral plans. Demonstrated understanding of instructions, follow-up care. 18:26 Patient left the ED. bp Signatures: Alicia Fernandez, RN RN sv Shira Germain, TAX SERVICES MANAGER-C TAX SERVICES MANAGER-Csnw DerickDunia Brian, RN RN bp Corrections: (The following items were deleted from the chart) 16:03 15:35 BP 117 / 65; Pulse 90bpm; Resp 20bpm; Pulse Ox 10%; Temp 97.7F; 90.72 kg; Height sv 5 ft. 8 in.; BMI: 30.4; Pain 0/10; sv 18:24 15:45 BP 134 / 88; Pulse 86bpm; Resp 14bpm; Pulse Ox 98%; Temp 98F; bp bp
--- NOTE | 2019-02-22 16:50 | EDPHYS ---
Physician Documentation [facility] Name: Wade Koehler Age: 58 yrs Sex: Male : 1960 Arrival Date: 02/22/2019 Time: 15:31 Bed 14 Private MD: Dante Best V ED Physician Nikolay Newman HPI: 02/22 18:41 This 58 yrs old Male presents to ER via Wheelchair with complaints of Blood snw Pressure Problem. 18:41 low blood pressure during dialysis. Onset: The symptoms/episode began/occurred snw intermittently over past week. Severity of symptoms: At their worst the symptoms were mild moderate. The patient has experienced similar episodes in the past. The patient has been recently seen by a physician: yesterday. Historical: - Allergies: 15:35 NKA; sv - PMHx: 15:35 Diabetes - IDDM; Dialysis; at home seven days a week'; ESRD; Hypertension; PERIPHERAL sv NEUROPATHY; - Immunization history:: Adult Immunizations up to date. - Social history:: Smoking status: Patient/guardian denies using tobacco. - Ebola Screening: : No symptoms or risks identified at this time. ROS: 18:36 Eyes: Negative for injury, pain, redness, and discharge, ENT: Negative for injury, snw pain, and discharge, Neck: Negative for injury, pain, and swelling, Cardiovascular: Negative for chest pain, palpitations, and edema, + hypotension intermittently x 1 week. At dialysis today DBP low in the 40-50s, directed to come to ED. On ED arrival all blood pressures stable. Pt felt concerned. CBC, Chem 7 unchanged, no alarming. Advised pt to f/u PCP and Nephro. Pt states his blood pressure is low at work. Work excuse given for weekend Respiratory: Negative for shortness of breath, cough, wheezing, and pleuritic chest pain, Abdomen/GI: Negative for abdominal pain, nausea, vomiting, diarrhea, and constipation, Back: Negative for injury and pain, : Negative for injury, bleeding, discharge, and swelling, MS/Extremity: Negative for injury and deformity, Skin: Negative for injury, rash, and discoloration, Neuro: Negative for headache, weakness, numbness, tingling, and seizure, Psych: Negative for depression, anxiety, suicide ideation, homicidal ideation, and hallucinations. 18:36 Constitutional: Positive for malaise. Exam: 18:36 Head/Face: Normocephalic, atraumatic. Eyes: Pupils equal round and reactive to light, snw extra-ocular motions intact. Lids and lashes normal. Conjunctiva and sclera are non-icteric and not injected. Cornea within normal limits. Periorbital areas with no swelling, redness, or edema. ENT: Nares patent. No nasal discharge, no septal abnormalities noted. Tympanic membranes are normal and external auditory canals are clear. Oropharynx with no redness, swelling, or masses, exudates, or evidence of obstruction, uvula midline. Mucous membranes moist. Neck: Trachea midline, no thyromegaly or masses palpated, and no cervical lymphadenopathy. Supple, full range of motion without nuchal rigidity, or vertebral point tenderness. No Meningismus. Chest/axilla: Normal chest wall appearance and motion. Nontender with no deformity. No lesions are appreciated. Cardiovascular: Regular rate and rhythm with a normal S1 and S2. No gallops, murmurs, or rubs. Normal PMI, no JVD. No pulse deficits. Respiratory: Lungs have equal breath sounds bilaterally, clear to auscultation and percussion. No rales, rhonchi or wheezes noted. No increased work of breathing, no retractions or nasal flaring. Abdomen/GI: Soft, non-tender, with normal bowel sounds. No distension or tympany. No guarding or rebound. No evidence of tenderness throughout. Back: No spinal tenderness. No costovertebral tenderness. Full range of motion. Skin: Warm, dry with normal turgor. Normal color with no rashes, no lesions, and no evidence of cellulitis. MS/ Extremity: Pulses equal, no cyanosis. Neurovascular intact. Full, normal range of motion. Neuro: Awake and alert, GCS 15, oriented to person, place, time, and situation. Cranial nerves II-XII grossly intact. Motor strength 5/5 in all extremities. Sensory grossly intact. Cerebellar exam normal. Normal gait. 18:36 Constitutional: The patient appears alert, awake, restless, right arm s/p fistula placement yesterday, hand mildly edematous, surgical dressing intact, dried blood without evidence of current bleeding, + thrill, distal pulses present Vital Signs: 15:35 BP 117 / 65; Pulse 90; Resp 20; Temp 97.7; Pulse Ox 100% ; Weight 90.72 kg; Height 5 sv ft. 8 in. (172.72 cm); Pain 0/10; 16:00 BP 141 / 62; Pulse 86; Resp 14; Pulse Ox 96% ; bp 16:30 BP 139 / 59; Pulse 84; Resp 14; Pulse Ox 95% ; bp 18:24 BP 134 / 88; Pulse 86; Resp 14; Temp 98; Pulse Ox 98% ; bp 15:35 Body Mass Index 30.41 (90.72 kg, 172.72 cm) sv MDM: 16:13 Patient medically screened. snw 18:40 Data reviewed: vital signs, nurses notes. Data interpreted: Pulse oximetry: on room air snw is 98 %. Interpretation: normal. Counseling: I had a detailed discussion with the patient and/or guardian regarding: the historical points, exam findings, and any diagnostic results supporting the discharge/admit diagnosis, lab results, to return to the emergency department if symptoms worsen or persist or if there are any questions or concerns that arise at home. 02/22 17:13 Order name: CBC with Diff; Complete Time: 18:02 snw 02/22 17:13 Order name: Chem 7; Complete Time: 18:05 snw 02/22 18:04 Order name: Orthostatic Blood Pressure; Complete Time: 18:25 snw Administered Medications: 17:30 Drug: NS 0.9% 250 ml Route: IV; Rate: bolus; Site: left antecubital; bp 18:25 Follow up: IV Status: Completed infusion; IV Intake: 250ml bp Disposition: 02/23 07:42 I agree with the assessment and plan of care. kdr Disposition: 02/22/19 16:49 Discharged to Home. Impression: Hypotension of hemodialysis - improved. - Condition is Stable. - Discharge Instructions: Hypotension. - Work release form, Medication Reconciliation Form, Thank You Letter, Antibiotic Education, Prescription Opioid Use form. - Follow up: Dante Best MD; When: 2 - 3 days; Reason: Recheck today's complaints, Continuance of care, Re-evaluation by your physician. Follow up: Guille Purcell MD; When: 2 - 3 days; Reason: Recheck today's complaints, Continuance of care, Re-evaluation by your physician. Signatures: Dispatcher [employer] Alicia Ackerman, RN RN Nikolay Newman MD MD [facility] Shira Germain, STUDIO DIRECTOR-C STUDIO DIRECTOR-Csnw Charbel Rollins, RN RN bp Corrections: (The following items were deleted from the chart) 02/22 18:26 16:49 02/22/2019 16:49 Discharged to Home. Impression: Hypotension of hemodialysis - bp improved. Condition is Stable. Forms are Medication Reconciliation Form, Thank You Letter, Antibiotic Education, Prescription Opioid Use. Follow up: Dante Best; When: 2 - 3 days; Reason: Recheck today's complaints, Continuance of care, Re-evaluation by your physician. Follow up: Guille Purcell; When: 2 - 3 days; Reason: Recheck today's complaints, Continuance of care, Re-evaluation by your physician. snw
[2019-02-22] MEDS ORDERED: NA CHLORIDE 0.9% 250 ML ONE (17:51)
[2019-02-22 17:57] LABS: Absolute Lymphocytes (CBC) 0.5 K/uL (0.7-4.9); Absolute Monocytes 0.2 K/uL (0.1-1.3); Absolute Neutrophil 4.1 K/uL (1.8-8.0); Basophils % 2.1 % (0-1.3); Eosinophils % 7.2 % (0-4.4); Hematocrit 29.7 % (39.6-49.0); Lymphocytes % 9.7 % (15.3-44.8); MPV 8.1 fL (7.6-11.3); Monocytes % 4.5 % (3.3-12.3); RBC Red Blood Cell Count 3.26 M/uL (4.33-5.43)
[2019-02-22 18:02] LABS: Potassium 3.9 mmol/L (3.5-5.1)
[2019-02-22 18:48] VITALS: BP 134/88; TEMP 98; O2SAT 98
== END 2019-02-22 18:26 | disposition home or self-care (01) ==
LOC: ER 15:28
DX: I95.3 Hypotension of hemodialysis (principal); E11.22 Type 2 diabetes mellitus with diabetic chronic kidney disease; N18.6 End stage renal disease; I12.0 Hypertensive chronic kidney disease with stage 5 chronic kidney disease or end stage renal disease; E11.42 Type 2 diabetes mellitus with diabetic polyneuropathy; Z99.2 Dependence on renal dialysis
CPT/HCPCS: 36415; 80048; 85025; 96360; 99284

== ENCOUNTER 2019-03-01 10:12 | Emergency (ER) | payer BC, OTHER ==
[2012-05-18 13:19] VITALS: BP 151/81
--- OUTSIDE RECORDS SUMMARY | 2019-03-01 10:14 | XMS REPORT ---
:1960 [facility] Address [address] [place] [id number] Care Team Providers Name Role Phone Unavailable [...]
--- NOTE | 2019-03-01 10:25 | ER ---
Nurse's Notes [facility] Name: Wade Koehler Age: 58 yrs Sex: Male : 1960 Arrival Date: 03/01/2019 Time: 10:14 Bed 2 Private MD: Dante Best V Diagnosis: Presentation: 03/01 10:18 Presenting complaint: Patient states: c/o pain all over. Pt reports that this has ss occurred in the past. Transition of care: patient was not received from another setting of care. Onset of symptoms is unknown. Risk Assessment: Do you want to hurt yourself or someone else?. Care prior to arrival: None. 10:18 Method Of Arrival: Wheelchair ss 10:18 Acuity: WILFREDO 2 ss Assessment: 10:19 Reassessment: Pt appears very agitated. C/o pain all over. Pt verbalized to daughter ss and son that he would [facility] go to [facility] where is specialist is. While attempting to bring patient to ER room bed 2 please with son and daughter at side, pt refused to go back to exam room, then agreed to be seen, then refused again. Daughter and son were apologetic for patient's agitation. ED Course: 10:14 Patient arrived in ED. mr 10:15 Dante Best MD is Private Physician. mr 10:16 Charbel Rollins, RN is Primary Nurse. bp 10:19 Triage completed. ss 10:19 No provider procedures requiring assistance completed. Patient did not have IV access ss during this emergency room visit. 10:21 Baljit Pope NP is PHCP. pm1 10:21 Jerald Wiley MD is Attending Physician. pm1 Administered Medications: No medications were administered Outcome: 10:19 Eloped from waiting room, before seeing physician ss 10:24 Patient left the ED. ss Signatures: SepulvedaDunia mr Edna Brasher RN RN ss Baljit Pope NP ADJUNCT ART HISTORY INSTRUCTOR pm1 Charbel Rollins, JAYDE RN bp
== END 2019-03-01 10:24 | disposition left against medical advice (07) ==
LOC: ER 10:12
DX: R52 Pain, unspecified (principal); Z53.21 Procedure and treatment not carried out due to patient leaving prior to being seen by health care provider
CPT/HCPCS: 99281

== ENCOUNTER 2019-03-04 11:14 | Emergency (ER) | payer BC, OTHER ==
[2012-05-18 13:19] VITALS: BP 151/81
--- OUTSIDE RECORDS SUMMARY | 2019-03-04 11:26 | XMS REPORT ---
:1960 [facility] Address [address] [place] [id number] Care Team Providers Name Role Phone Unavailable [...]
[2019-03-04 12:22] LABS: Absolute Lymphocytes (CBC) 1.1 K/uL (0.7-4.9); Absolute Monocytes 0.7 K/uL (0.1-1.3); Absolute Neutrophil 6.9 K/uL (1.8-8.0); Eosinophils % 2.2 % (0-4.4); Lymphocytes % 12.5 % (15.3-44.8); MPV 7.9 fL (7.6-11.3); Monocytes % 8.1 % (3.3-12.3); RBC Red Blood Cell Count 2.98 M/uL (4.33-5.43)
[2019-03-04 12:30] LABS: Protime INR 1.01
[2019-03-04 12:42] LABS: Albumin 2.9 g/dL (3.4-5.0); Bilirubin Direct 0.1 mg/dL (0-0.2); Bilirubin Total 0.3 mg/dL (0.2-1.0); CKMB Creatine Kinase MB 1.4 ng/mL (0.3-3.6); Potassium 4.3 mmol/L (3.5-5.1); Protein, Total 7.5 g/dL (6.4-8.2)
--- NOTE | 2019-03-04 13:11 | EDPHYS ---
Physician Documentation [facility] Name: Wade Koehler Age: 58 yrs Sex: Male : 1960 Arrival Date: 03/04/2019 Time: 11:19 Bed 13 Private MD: ED Physician Scotty Concepcion HPI: 03/04 12:50 This 58 yrs old Male presents to ER via Wheelchair with complaints of Hand bishop Swelling. 12:50 The patient or guardian reports decreased range of motion, pain, swelling. The bishop complaints affect the right hand diffusely. Context: The problem was sustained at home. Onset: The symptoms/episode began/occurred 3 day(s) ago. Modifying factors: The symptoms are alleviated by elevation, the symptoms are aggravated by movement, dependent position. Associated signs and symptoms: The patient has no apparent associated signs or symptoms. Severity of symptoms: At their worst the symptoms were mild, moderate, in the emergency department the symptoms are unchanged. The patient has not experienced similar symptoms in the past. Historical: - Allergies: 11:24 NKA; aj - Home Meds: 11:30 Acidophilus 2 tabs daily Oral [Active]; bumetanide 2 mg Oral tab 1 tab 2 times per day hj [Active]; aspirin 81 mg Oral TbEC 1 tab once daily [Active]; carvedilol 6.25 mg Oral tab 1 tab daily [Active]; ferric citrate 20mg Oral [Active]; gabapentin 600 mg Oral tab 1 tab [Active]; Lantus 35 units Sub-Q daily [Active]; losartan 100 mg Oral tab 1 tab once daily [Active]; Lyrica 25 mg Oral 4 caps daily [Active]; nifedipine 30 mg Oral TbER 1 tab once daily [Active]; nitroglycerin 0.4 mg SL subl 1 tab [Active]; prasurgel 10 mg [Active]; tamsulosin 0.4 mg Oral cp24 1 cap once daily [Active]; vitamin b [Active]; zolpidem 10 mg Oral tab 1 tab once daily [Active]; - PMHx: 11:30 Diabetes - IDDM; Dialysis; at home seven days a week'; ESRD; Hypertension; PERIPHERAL hj NEUROPATHY; - PSHx: 11:30 Unable to obtain; hj - Immunization history:: Adult Immunizations up to date. - Social history:: Smoking status: Patient/guardian denies using tobacco, Patient/guardian denies using alcohol. - Ebola Screening: : Patient negative for fever greater than or equal to 101.5 degrees Fahrenheit, and additional compatible Ebola Virus Disease symptoms Patient denies exposure to infectious person Patient denies travel to an Ebola-affected area in the 21 days before illness onset. - Family history:: not pertinent. ROS: 12:50 Constitutional: Negative for fever, chills, and weight loss, Eyes: Negative for injury, bishop pain, redness, and discharge, ENT: Negative for injury, pain, and discharge, Neck: Negative for injury, pain, and swelling, Cardiovascular: Negative for chest pain, palpitations, and edema, Respiratory: Negative for shortness of breath, cough, wheezing, and pleuritic chest pain, Abdomen/GI: Negative for abdominal pain, nausea, vomiting, diarrhea, and constipation, Back: Negative for injury and pain, : Negative for injury, bleeding, discharge, and swelling, Skin: Negative for injury, rash, and discoloration, Neuro: Negative for headache, weakness, numbness, tingling, and seizure, Psych: Negative for depression, anxiety, suicide ideation, homicidal ideation, and hallucinations, Allergy/Immunology: Negative for hives, rash, and allergies, Endocrine: Negative for neck swelling, polydipsia, polyuria, polyphagia, and marked weight changes, Hematologic/Lymphatic: Negative for swollen nodes, abnormal bleeding, and unusual bruising. 12:50 MS/extremity: Positive for decreased range of motion, erythema, pain, swelling, tenderness, warmth, of the right arm. Exam: 12:50 Constitutional: This is a well developed, well nourished patient who is awake, alert, bishop and in no acute distress. Head/Face: Normocephalic, atraumatic. Eyes: Pupils equal round and reactive to light, extra-ocular motions intact. Lids and lashes normal. Conjunctiva and sclera are non-icteric and not injected. Cornea within normal limits. Periorbital areas with no swelling, redness, or edema. ENT: Nares patent. No nasal discharge, no septal abnormalities noted. Tympanic membranes are normal and external auditory canals are clear. Oropharynx with no redness, swelling, or masses, exudates, or evidence of obstruction, uvula midline. Mucous membranes moist. Neck: Trachea midline, no thyromegaly or masses palpated, and no cervical lymphadenopathy. Supple, full range of motion without nuchal rigidity, or vertebral point tenderness. No Meningismus. Chest/axilla: Normal chest wall appearance and motion. Nontender with no deformity. No lesions are appreciated. Cardiovascular: Regular rate and rhythm with a normal S1 and S2. No gallops, murmurs, or rubs. Normal PMI, no JVD. No pulse deficits. Respiratory: Lungs have equal breath sounds bilaterally, clear to auscultation and percussion. No rales, rhonchi or wheezes noted. No increased work of breathing, no retractions or nasal flaring. Abdomen/GI: Soft, non-tender, with normal bowel sounds. No distension or tympany. No guarding or rebound. No evidence of tenderness throughout. Back: No spinal tenderness. No costovertebral tenderness. Full range of motion. Male : Normal genitalia with no discharge or lesions. Skin: Warm, dry with normal turgor. Normal color with no rashes, no lesions, and no evidence of cellulitis. Neuro: Awake and alert, GCS 15, oriented to person, place, time, and situation. Cranial nerves II-XII grossly intact. Motor strength 5/5 in all extremities. Sensory grossly intact. Cerebellar exam normal. Normal gait. Psych: Awake, alert, with orientation to person, place and time. Behavior, mood, and affect are within normal limits. 12:50 Musculoskeletal/extremity: Extremities: decreased ROM, erythema, pain, swelling, tenderness, ROM: full active range of motion, full passive range of motion, in the right arm, Circulation is intact in all extremities. numbness, Compartment Syndrome exam of affected extremity: is normal. DVT Exam: negative Homans' sign noted on exam, no appreciated bluish discoloration, pain, swelling, tenderness, erythema, increased warmth. Vital Signs: 11:24 BP 98 / 53; Pulse 158; Resp 25; Temp 97.8(O); Pulse Ox 93% on R/A; Weight 88.45 kg; aj Height 5 ft. 8 in. 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 [facility] 13:02 Data reviewed: vital signs, nurses notes, lab test result(s), EKG, radiologic studies, [facility] plain films. 03/04 13:02 Order name: CBC with Automated Diff [facility] 03/04 11:52 Order name: Chest Single View XRAY 03/04 13:02 Order name: Protime (+INR) [facility] 03/04 13:02 Order name: PTT, Activated Partial Thromb [facility] 03/04 13:02 Order name: Lactate [facility] 03/04 13:02 Order name: Basic Metabolic Panel [facility] 03/04 13:02 Order name: Liver (Hepatic) Function [facility] 03/04 13:02 Order name: CKMB Creatine Kinase MB [facility] 03/04 13:02 Order name: Lipase [facility] 03/04 13:05 Order name: Procalcitonin [facility] 03/04 13:10 Order name: Blood Culture [facility] 03/04 13:10 Order name: Blood Culture [facility] 03/04 13:11 Order name: Chest Single View; Complete Time: 13:27 [facility] 03/04 13:14 Order name: Wound Culture [facility] 03/04 13:21 Order name: UPPER EXTREMITY VENOUS UNILATE [facility] 03/04 11:52 Order name: Accucheck; Complete Time: 11:52 03/04 11:52 Order name: Cardiac monitoring; Complete Time: 11:52 03/04 11:52 Order name: EKG - Nurse/Tech; Complete Time: 11:52 03/04 11:52 Order name: IV Saline Lock - Large Bore; Complete Time: 11: 03/04 11:52 Order name: Labs collected and sent; Complete Time: 03/04 11:52 Order name: O2 Per Protocol; Complete Time: 03/04 11:52 Order name: O2 Sat Monitoring; Complete Time: 03/04 13:48 Order name: EKG Electrocardiogram EDMS Administered Medications: 12:51 Not Given (Duplicate Order): NS 0.9% (30 ml/kg) 30 ml/kg IV at bolus once; Sepsis bishop Protocol 13:00 Drug: NS 0.9% 1000 ml Route: IV; Rate: 75 ml/hr; Site: left antecubital; 14:00 Follow up: IV Status: Infusion continued upon transfer hj 13:00 Drug: morphine 2 mg Route: IVP; Site: left antecubital; 14:00 Follow up: Response: No adverse reaction; Pain is decreased 13:00 Drug: Zofran 4 mg Route: IVP; Site: left antecubital; 14:00 Follow up: Response: No adverse reaction; Nausea is decreased 13:30 Drug: vancoMYCIN 1 grams Route: IVPB; Infused Over: 2 hrs; Site: left antecubital; 14:01 Follow up: IV Status: Infusion continued upon transfer 13:55 Drug: Cefepime 1 grams Route: IVPB; Rate: 200 ml/hr; Infused Over: 30 mins; Site: left hj antecubital; 14:01 Follow up: IV Status: Infusion continued upon transfer 14:53 Drug: morphine 2 mg Route: IVP; Site: left antecubital; 14:54 Follow up: Response: No adverse reaction; Nausea is decreased Point of Care Testing: Blood Glucose: : Blood Glucose: 228 mg/dL; Ranges: Critical Glucose Levels:Adult <50 mg/dl or >400 mg/dl <40 mg/dl or >180 mg/dl Disposition: 03/04/19 13:01 Transfer ordered to Other Acute Care Facility. Diagnosis are Cellulitis and acute lymphangitis of other sites, Type 1 diabetes mellitus, End stage renal disease, Edema, unspecified - RIGTH UPPER EXTREMITY, Anemia, unspecified, Pneumonia due to other specified bacteria. - Reason for transfer: Higher level of care. - Accepting physician is MICHELLE ROE. - Condition is Stable. - Problem is new. - Symptoms have improved. Signatures: Dispatcher [employer] [facility] Sigrid Bond RN RN aj Anderson, Corey, MD MD cha Joaquin, Henry RN RN hj Corrections: (The following items were deleted from the chart) 13:03 13:01 03/04/2019 13:01 Transfer ordered to Other Acute Care Facility. Diagnosis is bishop Cellulitis and acute lymphangitis of other sites; Type 1 diabetes mellitus; End stage renal disease; Edema, unspecified - RIGTH UPPER EXTREMITY. Reason for transfer: Higher level of care. Accepting physician is MICHELLE ROE. Condition is Stable. Problem is new. Symptoms have improved. [facility] 13:20 13:06 Extremity Venous Uni [email or web address] ordered. [facility] 13:27 13:03 03/04/2019 13:01 Transfer ordered to Other Acute Care Facility. Diagnosis is bishop Cellulitis and acute lymphangitis of other sites; Type 1 diabetes mellitus; End stage renal disease; Edema, unspecified - RIGTH UPPER EXTREMITY; Anemia, unspecified. Reason for transfer: Higher level of care. Accepting physician is MICHELLE ROE. Condition is Stable. Problem is new. Symptoms have improved. [facility] 15:45 13:27 03/04/2019 13:01 Transfer ordered to Other Acute Care Facility. Diagnosis is Cellulitis and acute lymphangitis of other sites; Type 1 diabetes mellitus; End stage renal disease; Edema, unspecified - RIGTH UPPER EXTREMITY; Anemia, unspecified; Pneumonia due to other specified bacteria. Reason for transfer: Higher level of care. Accepting physician is MICHELLE ROE. Condition is Stable. Problem is new. Symptoms have improved. bishop
--- NOTE | 2019-03-04 13:11 | ER ---
Nurse's Notes [facility] Name: Wade Koehler Age: 58 yrs Sex: Male : 1960 Arrival Date: 03/04/2019 Time: 11:19 Bed 13 Private MD: Diagnosis: Cellulitis and acute lymphangitis of other sites;Type 1 diabetes mellitus;End stage renal disease;Edema, unspecified-RIGTH UPPER EXTREMITY;Anemia, unspecified;Pneumonia due to other specified bacteria Presentation: 03/04 11:23 Presenting complaint: Patient states: Infection to right axilla after SX 1 week ago. aj Transition of care: patient was not received from another setting of care. Onset of symptoms was February 26, 2019. Risk Assessment: Do you want to hurt yourself or someone else? Patient reports no desire to harm self or others. Initial Sepsis Screen: Does the patient meet any 2 criteria? RR > 20 per min. No. Patient's initial sepsis screen is negative. Does the patient have a suspected source of infection? Yes:. Care prior to arrival: None. 11:23 Method Of Arrival: Wheelchair 11:23 Acuity: WILFREDO 2 aj Triage Assessment: 11:24 General: Appears in no apparent distress. uncomfortable, Behavior is calm, cooperative, aj drowsy. Pain: Complains of pain in right foot, left foot and right axilla. Neuro: Level of Consciousness is awake, alert, obeys commands, Oriented to person, place, time, situation, Appropriate for age. Respiratory: Airway is patent Respiratory effort is even, unlabored, Respiratory pattern is tachypnea. Derm: Skin is intact, is healthy with good turgor, Skin is pink, warm \T\ dry. normal. Historical: - Allergies: 11:24 NKA; aj - Home Meds: 11:30 Acidophilus 2 tabs daily Oral [Active]; bumetanide 2 mg Oral tab 1 tab 2 times per day hj [Active]; aspirin 81 mg Oral TbEC 1 tab once daily [Active]; carvedilol 6.25 mg Oral tab 1 tab daily [Active]; ferric citrate 20mg Oral [Active]; gabapentin 600 mg Oral tab 1 tab [Active]; Lantus 35 units Sub-Q daily [Active]; losartan 100 mg Oral tab 1 tab once daily [Active]; Lyrica 25 mg Oral 4 caps daily [Active]; nifedipine 30 mg Oral TbER 1 tab once daily [Active]; nitroglycerin 0.4 mg SL subl 1 tab [Active]; prasurgel 10 mg [Active]; tamsulosin 0.4 mg Oral cp24 1 cap once daily [Active]; vitamin b [Active]; zolpidem 10 mg Oral tab 1 tab once daily [Active]; - PMHx: 11:30 Diabetes - IDDM; Dialysis; at home seven days a week'; ESRD; Hypertension; PERIPHERAL hj NEUROPATHY; - PSHx: 11:30 Unable to obtain; hj - Immunization history:: Adult Immunizations up to date. - Social history:: Smoking status: Patient/guardian denies using tobacco, Patient/guardian denies using alcohol. - Ebola Screening: : Patient negative for fever greater than or equal to 101.5 degrees Fahrenheit, and additional compatible Ebola Virus Disease symptoms Patient denies exposure to infectious person Patient denies travel to an Ebola-affected area in the 21 days before illness onset. - Family history:: not pertinent. Screenin:30 Abuse screen: Denies threats or abuse. Denies injuries from another. Nutritional hj screening: No deficits noted. Tuberculosis screening: No symptoms or risk factors identified. Fall Risk None identified. Assessment: 11:30 General: Appears in no apparent distress. uncomfortable, Behavior is calm, cooperative, hj appropriate for age. Pain: Complains of pain in right arm and left foot and right foot and right axilla. Neuro: Level of Consciousness is awake, alert, obeys commands, Oriented to person, place, time, situation, Appropriate for age. Cardiovascular: Clubbing of nail beds is absent Patient's skin is warm and dry. Respiratory: Airway is patent Respiratory effort is even, unlabored, Respiratory pattern is regular, symmetrical. GI: No signs and/or symptoms were reported involving the gastrointestinal system. : Reports dialysis. EENT: No signs and/or symptoms were reported regarding the EENT system. Derm: Reports pain. Musculoskeletal: No signs and/or symptoms reported regarding the musculoskeletal system. 12:30 Reassessment: Patient and/or family updated on plan of care and expected duration. Pain hj level reassessed. Patient is alert, oriented x 3, equal unlabored respirations, skin warm/dry/pink. awaiting results and POC:. 13:15 Reassessment: Patient and/or family updated on plan of care and expected duration. Pain hj level reassessed. Patient is alert, oriented x 3, equal unlabored respirations, skin warm/dry/pink. wheeled to US;. Vital Signs: 11:24 BP 98 / 53; Pulse 158; Resp 25; Temp 97.8(O); Pulse Ox 93% on R/A; Weight 88.45 kg; aj Height 5 ft. 8 in. 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 tw3 11:24 Triage completed. aj 11:24 Arm band placed on left wrist. Patient placed in an exam room. aj 11:30 Patient has correct armband on for positive identification. Placed in gown. Bed in low hj position. Call light in reach. Side rails up X2. 11:30 Inserted saline lock: 18 gauge in left antecubital area, using aseptic technique. hj ,using aseptic technique. IRW Blood collected. 11:31 Scotty Concepcion MD is Attending Physician. [facility] 11:35 Gianfranco Garza, JAYDE is Primary Nurse. hj 12:48 X-ray completed. Portable x-ray completed in exam room. Patient tolerated procedure jb2 well. 13:17 Chest Single View In Process Unspecified. EDMS 13:44 UPPER EXTREMITY VENOUS UNILATE In Process Unspecified. EDMS 15:44 No provider procedures requiring assistance completed. Patient transferred, IV remains hj in place. intact. Administered Medications: 12:51 Not Given (Duplicate Order): NS 0.9% (30 ml/kg) 30 ml/kg IV at bolus once; Sepsis [facility] Protocol 13:00 Drug: NS 0.9% 1000 ml Route: IV; Rate: 75 ml/hr; Site: left antecubital; hj 14:00 Follow up: IV Status: Infusion continued upon transfer hj 13:00 Drug: morphine 2 mg Route: IVP; Site: left antecubital; hj 14:00 Follow up: Response: No adverse reaction; Pain is decreased hj 13:00 Drug: Zofran 4 mg Route: IVP; Site: left antecubital; hj 14:00 Follow up: Response: No adverse reaction; Nausea is decreased hj 13:30 Drug: vancoMYCIN 1 grams Route: IVPB; Infused Over: 2 hrs; Site: left antecubital; 14:01 Follow up: IV Status: Infusion continued upon transfer hj 13:55 Drug: Cefepime 1 grams Route: IVPB; Rate: 200 ml/hr; Infused Over: 30 mins; Site: left hj antecubital; 14:01 Follow up: IV Status: Infusion continued upon transfer hj 14:53 Drug: morphine 2 mg Route: IVP; Site: left antecubital; 14:54 Follow up: Response: No adverse reaction; Nausea is decreased Point of Care Testing: Blood Glucose: 11:57 Blood Glucose: 228 mg/dL; Ranges: Outcome: 13:01 ER care complete, transfer ordered by MD. alas 15:44 Transferred by ground EMS to [facility], Transfer form completed. X-rays sent w/ patient. 15:44 Condition: stable 15:44 Instructed on the need for transfer, Demonstrated understanding of instructions. 15:45 Patient left the ED. Addendum: 03/07/2019 12:17 Addendum: Culture Results: Positive wound culture. Phone call Attempt #1 Faxed to jeffrey Barrios RN. Signatures: Dispatcher [employer] EDMS Sigrid Bond RN RN aj Anderson, Corey, MD MD cha Buechter, Jesse jb2 Greta Cabello RN RN Edna Brasher RN RN ss Joaquin, Henry RN Liana Jama tw3 Corrections: (The following items were deleted from the chart) 03/04 11:38 11:23 Initial Sepsis Screen: Does the patient meet any 2 criteria? RR > 20 per min. HR iw > 90 bpm. Does the patient have a suspected source of infection? Yes: tish : 11:23 Initial Sepsis Screen: Does the patient meet any 2 criteria? RR > 20 per min. iw Systolic BP < 90 mmHg. Yes Does the patient have a suspected source of infection? Yes: iw
[2019-03-04] MEDS ORDERED: MORPHINE 2 MG/ML SYR ONE ×2 (13:13→15:03)
[2019-03-04] MEDS ORDERED: ONDANSETRON 4 MG/2 ML VIAL ONE (13:13)
[2019-03-04] MEDS ORDERED: NA CHLORIDE 0.9% 1,000 ML ONE (13:13)
--- NOTE | 2019-03-04 13:23 | RAD REPORT ---
EXAM DESCRIPTION: RAD - Chest Single View - 03/04/2019 1:04 pm CLINICAL HISTORY: Pneumonia, infection, hypertension, diabetes COMPARISON: November 07 TECHNIQUE: AP portable chest image was obtained 1252 hours . FINDINGS: Interstitial lung pattern is prominent on the right when compared to the October study. N o dense consolidation is seen though early interstitial infiltrate is suspected. Left lung field is c lear. Trachea is midline. Double-lumen dialysis catheter noted on the right. Heart and vasculature are normal. No measurable pl eural effusion and no pneumothorax. No acute bony abnormality seen. No acute aortic findings suspecte d. IMPRESSION: Suspected early interstitial pneumonia mid and lower right lung field. No dense consolid ation.
[2019-03-04] MEDS ORDERED: VANCOMYCIN/NS 1 gm 1 GM/250 ML BAG IV ONE (13:30)
[2019-03-04] MEDS ORDERED: CEFEPIME 1 GM/100 ML BAG IV ONE (13:55)
--- NOTE | 2019-03-04 14:25 | RAD REPORT ---
EXAM DESCRIPTION: UPPER EXTREMITY VENOUS UNILATE - 03/04/2019 1:42 pm CLINICAL HISTORY: Right arm swelling, dialysis fistula COMPARISON: None. TECHNIQUE: Real-time sonographic evaluation of the rightupper extremity deep venous system was perfo rmed. FINDINGS: Normal compressibility where accessible with flow augmentation, phasic flow and spontaneou s flow is identified in the right upper extremity deep venous system. No intraluminal filling defects seen. Dialysis fistula appears patent. IMPRESSION: No DVT in the right upper extremity.
--- NOTE | 2019-03-04 17:19 | EKG ---
Test Date: 2019-03-04 Test Time: 11:53:47 Equity Trader: AG/S MEASUREMENT RESULTS: Intervals: Rate: 65 MN: 166 QRSD: 96 QT: 420 QTc: 436 [place]: P: 55 MN: 166 QRS: 38 T: 30 INTERPRETIVE STATEMENTS: Normal sinus rhythm Normal ECG Compared to ECG 11/06/2018 07:04:24 No significant changes Electronically Signed On 03-04-19 17:17:38 CDT by Bong Coleman
== END 2019-03-04 15:45 ==
LOC: ER 11:14
DX: L03.818 Cellulitis of other sites (principal); L03.898 Acute lymphangitis of other sites; E10.22 Type 1 diabetes mellitus with diabetic chronic kidney disease; I12.0 Hypertensive chronic kidney disease with stage 5 chronic kidney disease or end stage renal disease; N18.6 End stage renal disease; D63.1 Anemia in chronic kidney disease; R60.0 Localized edema; Z99.2 Dependence on renal dialysis; J15.8 Pneumonia due to other specified bacteria; Z79.4 Long term (current) use of insulin; Z79.82 Long term (current) use of aspirin
CPT/HCPCS: 36415; 71045; 80048; 80076; 82553; 82962; 83605; 83690; 84145; 85025; 85610; 85730; 87040; 87070; 87077; 87186; 87205; 93005; 93971; 96365; 96375; 99285; J0692; J2270; J2405; J3370; J7030

== ENCOUNTER 2019-04-17 20:38 | Emergency (ER) | payer BC, OTHER ==
--- OUTSIDE RECORDS SUMMARY | 2019-04-17 20:44 | XMS REPORT | Continuity of Care Document ---
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 Active Problem 03/09/2019 [facility] [place] [place] ESRD on Active Problem 03/09/2019 [facility] [place], [facility] Heart failure Resolved Problem 03/09/2019 [facility] HTN (Confirmed) Active Problem 03/09/2019 [facility] Heart attack Resolved Problem 03/09/2019 [facility] Sleep apnea Active Problem 03/09/2019 [facility] Hand pain Active Problem 03/09/2019 [facility] Paresthesia Active Problem 03/09/2019 [facility] Simple obesity Active Problem 03/09/2019 [facility] H/O sudden Active Problem 03/09/2019 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 [facility] 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 Active [facility] MELLITUS WITH HYPERGLYCE PROTEINURIA, Active [facility] UNSPECIFIED Medications Medication Details Route Status Patient Ordering Order Source Instructions Provider Date Acetaminophen 300 1 tab, PO, Q8H, Active 03/07[facility] MG / Codeine PRN Pain Score 2018 Phosphate 30 MG 6-10, X 7 day, Oral Tablet # 28 tab, 0 [Tylenol with Refill(s) Codeine #3] zolpidem 10 mg 10 mg=1 tab, Active 03/07[facility] oral tablet PO, Bedtime, 2018 PRN as needed for insomnia, X 30 day, # 30 tab, 0 Refill(s) predniSONE 20 mg 60 mg=3 tab, Active oral tablet PO, Daily, Take 2018 3 tablets for 60 mg dose, X 4 day, # 12 tab, 0 Refill(s), Pharmacy: [facility] [id number] pantoprazole 40 40 mg=1 tab, Active mg oral enteric PO, Before 2019 coated tablet Breakfast, # 30 tab, 0 Refill(s), Pharmacy: [facility] [id number] Colchicine 0.6 MG 0.6 mg=1 tab, Active Oral Tablet PO, BID, # 60 2019 tab, 0 Refill(s), Pharmacy: [facility] [id number] Levofloxacin 500 500 mg=1 tab, Active MG Oral Tablet PO, Q24H, X 10 2019 [Levaquin] day, # 10 tab, 0 Refill(s), Pharmacy: [facility] [id number] Protonix 40 mg, 1 tab, Inactive Route: PO, Drug 2018 [facility] form: ECTAB, Before Breakfast, Dosing Weight 92.227, kg, Start date: 03/07/19 7:30:00 CDT, Duration: 30 day, Stop date: 04/05/19 7:30:00 CDTNotes: Tablet should not be chewed or crushed. (Same as: Protonix) Solu-Medrol 40 mg, 1 mL, No Longer Route: IVP, [facility] 2018 [facility] Drug form: INJ, Q12H, Dosing Weight 92.227, kg, Start date: 03/06/19 21:00:00 CDT, Duration: 30 day, Stop date: 04/05/19 9:00:00 CDTNotes: (Same as:Solu-MEDROL, A-Methapred) Colchicine 0.6 mg, 1 tab, No Longer Route: PO, Drug Active 2018 [facility] form: TAB, BID, Dosing Weight 92.227, kg, Priority: NOW, Start date: 03/06/19 14:53:00 CDT, Duration: 30 day, Stop date: 04/05/19 9:00:00 CDT tamsulosin 0.4 mg, 1 cap, No Longer Route: PO, Drug Active 2018 [facility] form: CAP, Bedtime, Dosing Weight 92.227, kg, Start date: 03/05/19 21:00:00 CDT, Duration: 30 day, Stop date: 04/03/19 21:00:00 CDTNotes: (Same As: Flomax) "Do Not Crush" atorvastatin 10 mg, 1 tab, No Longer Route: PO, Drug Active 2018 [facility] form: TAB, Bedtime, Dosing Weight 92.227, kg, Start date: 03/05/19 21:00:00 CDT, Duration: 30 day, Stop date: 04/03/19 21:00:00 CDTNotes: (Same As: Lipitor) Epogen 10,000 unit, 1 No Longer mL, Route: Active 2018 [facility] SUB-Q, Drug form: INJ, Q-M-W-F, Dosing Weight 92.227, kg, Start date: 03/05/19 17:00:00 CDT, Stop date: 04/03/19 17:00:00 CDTNotes: (Same as: Procrit) epoetin olamide 34213 unit/1 ml VL. For dialysis use only. (Procrit) WASTE: F/P - Red; E -Red MEDICATION WASTE Product Size: 38617 unit Product Wasted: ___ unit vancomycin + 500 mg, Route: No Longer Sodium Chloride IVPB, Q-M-W-F, Active 2018 [facility] 0.9% IV 100 mL Start date: 03/05/19 17:00:00 CDT, Stop date: 03/13/19 17:00:00 CDT, ABX Indication: Skin/Soft Tissue InfectionNotes: TIME CRITICAL MEDICATION (Same As: Vancocin) For adult patients only: Round to nearest 250 mg per Medical Staff approval Lactulose 667 20 gm, 30 mL, No Longer MG/ML Oral Route: PO, Drug Active 2018 [facility] Solution form: SYRP, After Dinner, Dosing Weight 92.227, kg, Start date: 03/05/19 17:00:00 CDT, Duration: 30 day, Stop date: 04/03/19 17:00:00 CDTNotes: (Same as:Chronulac) Fluticasone 50 microgram, No Longer propionate 0.05 Route: NASAL, Active 2018 [facility] MG/ACTUAT Metered Drug Form: Dose Nasal [place] SPRY, Dosing [Flonase] Weight 92.227, kg, BID, Start date: 03/05/19 17:00:00 CDT, Duration: 30 day, Stop date: 04/04/19 9:00:00 CDTNotes: (Same as: Flonase) Fluticasone 1 spray, NASAL, Active propionate 0.05 BID, # 16 gm, 0 2018 [facility] MG/ACTUAT Metered Refill(s) Dose Nasal [place] [Flonase] prasugrel 10 mg, 1 tab, No Longer Route: PO, Drug Active 2018 [facility] form: TAB, Daily, Dosing Weight 92.227, kg, Start date: 03/05/19 9:00:00 CDT, Duration: 30 day, Stop date: 04/03/19 9:00:00 CDTNotes: Same as Effient For patients 60kg, without history of TIA/Ischemic stroke and without likely bypass surgery Veltassa 8.4 gm, Route: No Longer PO, Drug form: Active 2018 [facility] PDR/REC, Daily, Dosing Weight 92.227, kg, Start date: 03/05/19 9:00:00 CDT, Duration: 30 day, Stop date: 04/03/19 9:00:00 CDT gabapentin 300 MG 300 mg, 1 cap, No Longer Oral Capsule Route: PO, Drug Active 2018 [facility] form: CAP, Daily, Dosing Weight 92.227, kg, Start date: 03/05/19 9:00:00 CDT, Duration: 30 day, Stop date: 04/03/19 9:00:00 CDTNotes: (Same as: Neurontin) Insulin Glargine 35 unit, 0.35 No Longer 100 UNT/ML mL, Route: Active 2018 [facility] Injectable SUB-Q, Drug Solution [Lantus] form: SOLN, Daily, Dosing Weight 92.227, kg, Start date: 03/05/19 9:00:00 CDT, Duration: 30 day, Stop date: 04/03/19 9:00:00 CDTNotes: (Same as: Lantus) Do not hold insulin without contacting prescriber WASTE: F/P - Black; E - Municipal Trash Bin "single patient use only" Stable for 28 days at room temperature Expires in days from D ate carvedilol 6.25 mg, 2 tab, No Longer Route: PO, Drug Active 2018 [facility] form: TAB, Q12H, Dosing Weight 92.227, kg, Start date: 03/05/19 9:00:00 CDT, Duration: 30 day, Stop date: 04/03/19 21:00:00 CDTNotes: Give with food. (Same As: Coreg) Aspirin 81 MG 81 mg, 1 tab, No Longer Enteric Coated Route: PO, Drug Active 2018 [facility] Tablet form: ECTAB, Daily, Dosing Weight 92.227, kg, Start date: 03/05/19 9:00:00 CDT, Duration: 30 day, Stop date: 04/03/19 9:00:00 CDTNotes: Do not crush or chew. (Same As: Ecotrin) Nephro-Dana Rx 1 tab, Route: No Longer PO, Drug Form: Active 2018 [facility] TAB, Dosing Weight 92.227, kg, Daily, Start date: 03/05/19 9:00:00 CDT, Duration: 30 day, Stop date: 04/03/19 9:00:00 CDTNotes: (Same as: Nephro-Dana Rx and Diatx) Give with food. Bumetanide 2 mg, 2 tab, No Longer Route: PO, Drug Active 2018 [facility] form: TAB, BID Diuretic, Dosing Weight 92.227, kg, Start date: 03/05/19 8:00:00 CDT, Duration: 30 day, Stop date: 04/03/19 16:00:00 CDTNotes: (Same As: Bumex) NIFEdipine 30 mg 30 mg, 1 tab, No Longer oral tablet, Route: PO, Drug Active 2018 [facility] extended release form: ERTAB, Before Breakfast, Dosing Weight 92.227, kg, Start date: 03/05/19 7:30:00 CDT, Duration: 30 day, Stop date: 04/03/19 7:30:00 CDTNotes: (Same as: Adalat CC, Procardia XL) Give on empty stomach. Take 1 hour before or 2 hours after meal; "Avoid grapefruit and grapefruit juice". Do not crush Benadryl 25 mg, 1 tab, No Longer Route: PO, Drug Active 2018 [facility] form: TAB, TID, Dosing Weight 92.227, kg, PRN Itching, Start date: 03/05/19 4:26:00 CDT, Duration: 30 day, Stop date: 04/04/19 4:25:00 CDT heparin 5,000 unit, 1 No Longer mL, Route: Active 2018 [facility] SUB-Q, Drug form: INJ, Q8H, Dosing Weight 92.227, kg, Start date: 03/05/19 0:00:00 CDT, Duration: 30 day, Stop date: 04/03/19 16:00:00 CDTNotes: porcine heparin zolpidem 5 mg, 1 tab, No Longer Route: PO, Drug Active 2018 [facility] form: TAB, Bedtime, PRN Insomnia, Start date: 03/04/19 23:03:00 CDT, Duration: 30 day, Stop date: 04/03/19 23:02:00 CDTNotes: (Same As: Cheryl) tramadol 50 mg, 1 tab, No Longer hydrochloride 50 Route: PO, Drug Active 2018 [facility] MG Oral Tablet form: TAB, Q8H, Dosing Weight 92.227, kg, PRN Pain Score 6-10, Start date: 03/04/19 22:42:00 CDT, Duration: 30 day, Stop date: 04/03/19 22:41:00 CDTNotes: Not to exceed 400mg/day. (Same As: Jelani) tizanidine 2 mg, 0.5 tab, No Longer Route: PO, Drug Active 2018 [facility] form: TAB, Q8H, Dosing Weight 92.227, kg, PRN Muscle Spasms, Start date: 03/04/19 22:42:00 CDT, Duration: 30 day, Stop date: 04/03/19 22:41:00 CDTNotes: (Same As: Zanaflex) Nitroglycerin 0.4 0.4 mg, 1 tab, No Longer MG Sublingual Route: SL, Drug Active 2018 [facility] Tablet form: TAB, Q5Min, Dosing Weight 92.227, kg, PRN Chest Pain, Start date: 03/04/19 22:42:00 CDT, Duration: 30 day, Stop date: 04/03/19 22:41:00 CDTNotes: (Same as:Nitroquick, Nitrostat) "Do Not Crush" Sublingual tablet Eszopiclone 3 mg, Route: Inactive PO, Drug form: 2018 [facility] TAB, Bedtime, Dosing Weight 92.227, kg, PRN Insomnia, Start date: 03/04/19 22:42:00 CDT, Duration: 30 day, Stop date: 04/03/19 22:41:00 CDT Albuterol 0.833 3 mL, Route: No Longer MG/ML / INHALATION, Active 2018 [facility] Ipratropium Drug Form: [place] 0.167 SOLN, Dosing MG/ML Inhalant Weight 92.227, Solution kg, RQ4H, PRN Shortness of breath, Start date: 03/04/19 22:42:00 CDT, Duration: 30 day, Stop date: 04/03/19 22:41:00 CDTNotes: (Same as: Dusandipb) Acetaminophen 325 1 tab, Route: No Longer MG / Hydrocodone PO, Drug Form: Active 2018 [facility] Bitartrate 5 MG TAB, Dosing Oral Tablet Weight 92.227, [[place]way 5/325] kg, Q6H, PRN Pain Score 4-6, Start date: 03/04/19 22:13:00 CDT, Duration: 30 day, Stop date: 04/03/19 22:12:00 CDTNotes: (Same as: [place] 325/5) Do not exceed 4gm/day of acetaminophen. Zofran 4 mg, 2 mL, No Longer Route: IVP, Active 2018 [facility] Drug form: INJ, Q8H, Dosing Weight 92.227, kg, PRN Nausea, Start date: 03/04/19 22:13:00 CDT, Duration: 30 day, Stop date: 04/03/19 22:12:00 CDTNotes: (Same as: Zofran) MEDICATION WASTE Product Size: 4 mg Product Wasted: ___ mg Vancomycin 1 ea, Route: Inactive MISC, ONCALL, 2018 [facility] Dosing Weight 92.227, kg, Start date: 03/04/19 22:00:00 CDT, Duration: 10 day, Stop date: 03/14/19 21:59:00 CDT, Pharmacy to dose, ABX Indication: Skin/Soft Tissue Infection cefepime 1 gm, Route: No Longer IVPB, [id number], Active 2018 [facility] Dosing Weight 92.227, kg, (CrCl Notes: (Same As: Maxipime) MEDICATION WASTE Product Size: 1000 mg Product Wasted: ___ mg Calcium Chloride 125 mL, 75 Inactive 0.0014 MEQ/ML / ml/hr, Infuse 2018 [facility] Potassium Over: 1.7 hr, Chloride 0.004 Route: IV, 125, MEQ/ML / Sodium Drug form: Chloride 0.103 SOLN, ONCE, MEQ/ML / Sodium Dosing Weight Lactate 0.028 92.227 kg, MEQ/ML Injectable Start date: Solution 03/04/19 21:22:00 CDT, Stop date: 03/04/19 21:22:00 CDT Insulin Lispro 5 unit, 0.05 No Longer mL, Route: Active 2018 [facility] SUB-Q, Drug form: SOLN, TID-Before Meals, Dosing Weight 92.227, kg, PRN Blood Glucose Results, Start date: 03/04/19 21:21:00 CDT, Duration: 30 day, Stop date: 04/03/19 21:20:00 CDTNotes: (Same as: Humalog) Roll in palms of hands gently; Do not shake vigorously. WASTE: F/P - Black; E - Municipal Trash Bin Stable for 28 days at room temperature. Expires in days from D ate Glucagon 1 mg, Route: No Longer IM, Drug form: Active 2018 [facility] PDR/INJ, PRN, Dosing Weight 92.227, kg, PRN Blood Glucose Results, Start date: 03/04/19 21:21:00 CDT, Duration: 30 day, Stop date: 04/03/19 21:20:00 CDT Dextrose 50% 25 gm, 50 mL, No Longer Syringe Route: IVP, Active 2018 [facility] Drug Form: INJ, Dosing Weight 92.227, kg, PRN, PRN Blood Glucose Results, Start date: 03/04/19 21:21:00 CDT, Duration: 30 day, Stop date: 04/03/19 21:20:00 CDT Acetaminophen 650 mg, 2 tab, No Longer Route: PO, Drug Active 2018 [facility] form: TAB, Q4H, Dosing Weight 92.227, kg, PRN Pain 1-3/Temp > 100.4 F, Start date: 03/04/19 21:21:00 CDT, Duration: 30 day, Stop date: 04/03/19 21:20:00 CDTNotes: Do not exceed 4 gm/day. (Same as: Tylenol) tizanidine 2 mg 2 mg=1 cap, PO, Active oral capsule Q8H, PRN for 2018 [facility] muscle spasms, # 90 cap, 0 Refill(s) zolpidem 10 mg 10 mg=1 tab, No Longer oral tablet PO, Bedtime, Active 2018 [facility] PRN as needed for insomnia, 0 Refill(s) eszopiclone 3 mg 3 mg=1 tab, PO, No Longer oral tablet Bedtime, PRN Active 2018 [facility] for insomnia, 0 Refill(s) Albuterol 0.833 3 mL, Active MG/ML / INHALATION, 2018 I[facility] Q4H, PRN [place] 0.167 Wheezing, # 30 MG/ML Inhalant ea, 1 Refill(s) Solution NIFEdipine 30 mg 30 mg=1 tab, Active oral tablet, PO, Before 2018 [facility] extended release Breakfast, # 30 tab, 0 Refill(s) Acetaminophen 300 1 tab, PO, Q8H, No Longer MG / Codeine PRN Pain Score Active 2018 [facility] Phosphate 30 MG 6-10, 0 Oral Tablet Refill(s) [Tylenol with Codeine #3] patiromer 8400 MG 8.4 gm, PO, Active Powder for Oral Daily, 0 2018 [facility] Suspension Refill(s) [Veltassa] atorvastatin 10 10 mg=1 tab, Active mg oral tablet PO, Bedtime, # 2019 [facility] 90 tab, 0 Refill(s) Lactulose 667 20 gm=30 mL, Active MG/ML Oral PO, After 2019 [facility] Solution Dinner, 0 Refill(s) sucroferric 500 mg=1 tab, Active oxyhydroxide 500 CHEW, 2019 [facility] MG Chewable TID-Meals, 0 Tablet [Velphoro] Refill(s) Nitroglycerin 0.4 0.4 mg=1 tab, Active MG Sublingual SL, Q5Min, PRN 2018 [facility] Tablet Chest pain, Give up to 3 doses. Call 911 if pain persists., # 100 tab, 0 Refill(s) tramadol 50 mg=1 tab, Active hydrochloride 50 PO, Q8H, PRN 2018 [facility] MG Oral Tablet Pain Score 6-10, 0 Refill(s) Flumazenil 0.2 mg, 2 mL, Inactive Route: IVP2018 [facility] Drug form: INJ, PRN, Dosing Weight 90.682, kg, PRN Benzodiazepine Reversal, Initial dose, Start date: 02/21/19 14:37:00 CDT, Stop date: 02/22/19 0:00:00 CDTNotes: (Same as: Romazicon) Fentanyl 50 microgram, 1 Inactive mL, Route: IVP2018 [facility] Drug form: INJ, Q5Min, Dosing Weight 90.682, kg, PRN Pain Score 7-10, Priority: Routine, Start date: 02/21/19 14:37:00 CDT, Duration: 2 doses or times, Stop date: 02/22/19 0:00:00 CDTNotes: (Same as: Sublimaze) Preservative free. Hydromorphone 0.5 mg, 0.5 mL, Inactive Route: IVP2018 [facility] Drug form: INJ, Q5Min, Dosing Weight 90.682, kg, PRN Pain Score 7-10, Start date: 02/21/19 14:37:00 CDT, Duration: 4 doses or times, Stop date: 02/22/19 0:00:00 CDTNotes: Same as: Dilaudid Naloxone 0.4 mg, 1 mL, Inactive Route: IVP2018 [facility] Drug form: INJ, Q2MIN, Dosing Weight 90.682, kg, PRN Narcotic Reversal, Start date: 02/21/19 14:37:00 CDT, Duration: 8 doses or times, Stop date: 02/22/19 0:00:00 CDTNotes: Same as Narcan Oxycodone 5 mg, 1 tab, Inactive Route: PO, Drug 2018 [facility] form: TAB, Q4H, Dosing Weight 90.682, kg, PRN Pain Score 4-6, Start date: 02/21/19 14:37:00 CDT, Stop date: 02/22/19 0:00:00 CDTNotes: (Same as: Roxicodone) Acetaminophen 1,000 mg, 2 Inactive tab, Route: PO, 2018 [facility] Drug form: TAB, ONCE, Dosing Weight 90.682, kg, PRN Pain Score 1-3, Start date: 02/21/19 14:37:00 CDTNotes: Max acetaminophen 4000 mg/day (4 gm/day). (Same as: Tylenol Extra Strength) Labetalol 10 mg, 2 mL, Inactive Route: IVP2018 [facility] Drug form: INJ, Q5Min, Dosing Weight 90.682, kg, PRN Elevated BP, Start date: 02/21/19 14:37:00 CDT, Duration: 5 doses or times, Stop date: 02/22/19 0:00:00 CDT Hydralazine 10 mg, 0.5 mL, Inactive Route: IVP2018 [facility] Drug form: INJ, Q20Min, Dosing Weight 90.682, kg, PRN Elevated BP, Start date: 02/21/19 14:37:00 CDT, Duration: 2 doses or times, Stop date: 02/22/19 0:00:00 CDTNotes: (Same as: Apresoline) Push over 5 minutes Diphenhydramine 12.5 mg, 0.25 Inactive mL, Route: IVP2018 [facility] Drug form: INJ, Q6H, Dosing Weight 90.682, kg, PRN Itching, Start date: 02/21/19 14:37:00 CDT, Stop date: 02/22/19 0:00:00 CDTNotes: (Same as: Benadryl) Ondansetron 4 mg, 2 mL, Inactive Route: IVP, 2018 [facility] Drug form: INJ, ONCE, Dosing Weight 90.682, kg, PRN Nausea & Vomiting, Start date: 02/21/19 14:37:00 CDTNotes: (Same as: Zofran) MEDICATION WASTE Product Size: 4 mg Product Wasted: ___ mg Meperidine 12.5 mg, 0.25 Inactive mL, Route: IVP2018 [facility] Drug form: INJ, Q30Min, Dosing Weight 90.682, kg, PRN Other -See Comment, For shivering, Start date: 02/21/19 14:37:00 CDT, Duration: 2 doses or times, Stop date: 02/22/19 0:00:00 CDTNotes: (Same As: Demerol) Benadryl 25 mg, Route: Inactive IVP, ONCE, 2018 [facility] Dosing Weight 90.682, kg, PRN Itching, Start date: 02/21/19 14:28:00 CDT phenylephrine Route: IV, Drug Inactive (ANES) form: INJ, 2018 ONCE, Stop date: 02/21/19 13:58:00 CDT Acetaminophen 325 1 tab, Route: Inactive MG / Hydrocodone PO, Drug Form: 2018 [facility] Bitartrate 10 MG TAB, Dosing Oral Tablet Weight 90.682, kg, Q4H, PRN Pain Score 4-6, Start date: 02/21/19 13:41:00 CDT, Duration: 30 day, Stop date: 03/23/19 13:40:00 CDTNotes: Do not exceed 4gm/day of acetaminophen. (Same as: [place] 325/10) Morphine 2 mg, 1 mL, Inactive Route: IVP, 2018 Drug form: SOLN, Q3H, Dosing Weight 90.682, kg, PRN Pain Score 1-3, Start date: 02/21/19 13:41:00 CDT, Duration: 30 day, Stop date: 03/23/19 13:40:00 CDT ePHEDrine (ANES) Route: IV, Drug Inactive MH form: INJ, 2018 ONCE, Stop date: 02/21/19 13:23:00 CDT metoclopramide Route: IV, Drug Inactive MH (ANES) form: [id number], Stop date: 02/21/19 13:07:00 CDT lidocaine (ANES) Route: IV, Drug Inactive 02/21/ MH form: [id number], Stop date: 02/21/19 13:07:00 CDT propofol (ANES) Route: IV, Drug Inactive MH form: [id number], Stop date: 02/21/19 13:07:00 CDT fentaNYL (ANES) Route: IV, Drug Inactive MH form: [id number], Stop date: 02/21/19 13:07:00 CDT midazolam (ANES) Route: IV, Drug Inactive 02/21/ MH form: SOLN, 2018, Stop date: 02/21/19 13:07:00 CDT ondansetron Route: IV, Drug Inactive MH (ANES) form: [id number], Stop date: 02/21/19 12:42:00 CDT ceFAZolin (ANES) Route: IV, Drug Inactive MH form: [id number], Stop date: 02/21/19 12:42:00 CDT vancomycin (ANES) Route: IV, Drug Inactive MH 1000 mg form: INJ, 2018 [facility] Start date: 02/21/19 12:10:00 CDT, Stop date: 02/21/19 13:10:00 CDT Sodium Chloride Route: IV, Inactive 0.9% IV (ANES) Total Volume: 2018 [facility] 1000 mL 1,000, Start date: 02/21/19 11:52:00 CDT, Stop date: 02/21/19 12:52:00 CDT Dextrose 50% 12.5 gm, 25 mL, Inactive Syringe Route: IVP, 2018 [facility] Drug Form: INJ, Dosing Weight 90.682, kg, ONCE, Start date: 02/21/19 11:30:00 CDT, Stop date: 02/21/19 11:30:00 CDT Sodium Chloride 1,000 mL, Rate: Inactive 0.9% IV 1000 mL 25 ml/hr, 2018 [facility] Infuse over: 40 hr, Route: IV, Dosing Weight 90.682 kg, Total Volume: 1,000, Start date: 02/21/19 9:49:00 CDT, Duration: 30 day, Stop date: 03/23/19 9:48:00 CDT, 2.11, m2 Ancef + sterile 2 gm, Route: No Longer water 20 mL IVP, PRE OP, Active 2018 [facility] Dosing Weight 90.682, kg, Start date: 01/29/19 11:00:00 CDT, Duration: 1 day, Stop date: 01/30/19 10:59:00 CDT, ABX Indication: Surgical ProphylaxisNote s: (Same As: Ancef, Kefzol) MEDICATION WASTE Product Size: 1000 mg Product Wasted: ___ mg Vancomycin 1 gm, Route: No Longer IVPB, Drug Active 2018 [facility] form: INJ, PRE OP, Dosing Weight 90.682, kg, Start date: 01/29/19 11:00:00 CDT, Duration: 1 day, Stop date: 01/30/19 10:59:00 CDT, ABX Indication: Surgical ProphylaxisNote s: TIME CRITICAL MEDICATION (Same As: Vancocin) Infusion rate 2001 mg: infuse over 2.5 hours For adult patients only: Round to nearest 250 mg per Medical Staff approval MEDICATION WASTE Product Size: 1000 mg Product Wasted: ___ mg Insulin Glargine 36 unit, SUB-Q, Active 100 UNT/ML Daily, 0 2019 [facility] Injectable Refill(s) Solution [Lantus] gabapentin 300 MG 300 mg=1 cap, Active 01/16/ [facility] Oral Capsule PO, Daily, # 30 2019 [facility] cap, 3 Refill(s), [facility] [id number] gabapentin 300 MG See No Longer 01/09/ [facility] Oral Capsule Instructions, 1 Active 2019 [facility] cap PO after dialysis, # 30 cap, 2 Refill(s), Pharmacy: [facility] [id number] Ondansetron 4 mg, Route: Inactive 12/20[facility] IVP, ONCE, 2019 [facility] Dosing Weight 90.966, kg, PRN Nausea & Vomiting, Start date: 12/20/18 9:13:00 CDT Meperidine 12.5 mg, Route: Inactive 12/20[facility] IVP, Q30Min, 2018 [facility] Dosing Weight 90.966, kg, PRN Other -See Comment, For shivering, Start date: 12/20/18 9:13:00 CDT, Duration: 2 doses or times, Stop date: Limited # of times Hydralazine 10 mg, Route: Inactive 12/20[facility] IVP, Q20Min, 2018 [facility] Dosing Weight 90.966, kg, PRN Elevated BP, Start date: 12/20/18 9:13:00 CDT, Duration: 2 doses or times, Stop date: Limited # of times Naloxone 0.4 mg, Route: Inactive IVP, Q2MIN, 2018 [facility] Dosing Weight 90.966, kg, PRN Narcotic Reversal, Start date: 12/20/18 9:13:00 CDT, Duration: 8 doses or times, Stop date: Limited # of times Diphenhydramine 12.5 mg, Route: Inactive IVP, Drug form: 2018 [facility] INJ, Q6H, Dosing Weight 90.966, kg, PRN Itching, Start date: 12/20/18 9:13:00 CDT, Duration: 30 day, Stop date: 01/19/19 9:12:00 CDT Oxycodone 5 mg, Route: Inactive PO, Drug form: 2018 [facility] TAB, Q4H, Dosing Weight 90.966, kg, PRN Pain Score 4-6, Start date: 12/20/18 9:13:00 CDT, Duration: 30 day, Stop date: 01/19/19 9:12:00 CDT Labetalol 10 mg, Route: Inactive IVP, Q5Min, 2018 [facility] Dosing Weight 90.966, kg, PRN Elevated BP, Start date: 12/20/18 9:13:00 CDT, Duration: 5 doses or times, Stop date: Limited # of times Acetaminophen 1,000 mg, Inactive Route: PO, Drug 2018 [facility] form: TAB, ONCE, Dosing Weight 90.966, kg, PRN Pain Score 1-3, Start date: 12/20/18 9:13:00 CDT Fentanyl 50 microgram, Inactive Route: IVP, 2018 [facility] Q5Min, Dosing Weight 90.966, kg, PRN Pain Score 7-10, Priority: Routine, Start date: 12/20/18 9:13:00 CDT, Duration: 2 doses or times, Stop date: Limited # of times Flumazenil 0.2 mg, Route: Inactive IVP, PRN, 2018 [facility] Dosing Weight 90.966, kg, PRN Benzodiazepine Reversal, Initial dose, Start date: 12/20/18 9:13:00 CDT, Duration: 30 day, Stop date: 01/19/19 9:12:00 CDT Hydromorphone 0.5 mg, Route: Inactive 12/20[facility] [facility] IVP, Q5Min, 2018 [facility] Dosing Weight 90.966, kg, PRN Pain Score 7-10, Start date: 12/20/18 9:13:00 CDT, Duration: 4 doses or times, Stop date: Limited # of times Acetaminophen 325 1 tab, Route: Inactive MG / Hydrocodone PO, Drug Form: 2018 [facility] Bitartrate 10 MG TAB, Dosing Oral Tablet Weight 90.966, kg, Q4H, PRN Pain Score 4-6, Start date: 12/20/18 9:09:00 CDT, Duration: 30 day, Stop date: 01/19/19 9:08:00 CDTNotes: Do not exceed 4gm/day of acetaminophen. (Same as: [place] 325/10) Acetaminophen 325 1 tab, Route: Inactive MG / Hydrocodone PO, Drug Form: 2018 [facility] Bitartrate 5 MG TAB, Dosing Oral Tablet Weight 90.966, kg, Q4H, PRN Pain Score 4-6, Start date: 12/20/18 9:09:00 CDT, Duration: 30 day, Stop date: 01/19/19 9:08:00 CDTNotes: (Same as: [place] 325/5) Do not exceed 4gm/day of acetaminophen. Sodium Chloride 500 mL, Rate: Inactive 0.9% IV 500 mL 25 ml/hr, 2018 [facility] Infuse over: 20 hr, Route: IV, Dosing Weight 90.966 kg, Total Volume: 500, Start date: 12/20/18 7:38:00 CDT, Duration: 1 day, Stop date: 12/21/18 7:37:00 CDT, 2.11, m2 prasugrel 10 mg, PO, Active Daily, 0 2018 [facility] Refill(s) tamsulosin 0.4 mg 0.4 mg=1 cap, Active oral capsule PO, Daily, # 30 2019 [facility] cap, 0 Refill(s) carvedilol 6.25 mg, PO, Active BID, 0 2018 [facility] Refill(s) Vancomycin 1 gm, Route: No Longer IVPB, PRE OP, Active 2018 [facility] Dosing Weight 90.966, kg, Start date: 12/11/18 13:00:00 CDT, Duration: 1 day, Stop date: 12/12/18 12:59:00 CDT, ABX Indication: Surgical ProphylaxisNote s: TIME CRITICAL MEDICATION (Same As: Vancocin) Infusion rate 2001 mg: infuse over 2.5 hours For adult patients only: Round to nearest 250 mg per Medical Staff approval MEDICATION WASTE Product Size: 1000 mg Product Wasted: ___ mg Ancef + sterile 2 gm, Route: No Longer water 20 mL IV, PRE OP, Active 2018 [facility] Dosing Weight 90.966, kg, Start date: 12/11/18 13:00:00 CDT, Duration: 1 day, Stop date: 12/12/18 12:59:00 CDT, ABX Indication: Surgical ProphylaxisNote s: (Same As: [place] Dawn) MEDICATION WASTE Product Size: 1000 mg Product Wasted: ___ mg Vitamin B1 Daily, 0 Active Refill(s) 2018 [facility] bumetanide 2 mg 2 mg=1 tab, PO, Active oral tablet BID, 0 2018 [facility] Refill(s) Acidophilus Daily, 0 Active Refill(s) 2018 [facility] Aspirin 81 MG 81 mg=1 tab, Active Enteric Coated PO, Daily, # 90 2018 [facility] Tablet tab, 3 Refill(s) Nitroglycerin 0.4 0.4 mg=1 tab, Active MG Sublingual SL, Q5Min, 0 2018 [facility] Tablet Refill(s) zolpidem 10 mg 10 mg=1 tab, Active sublingual tablet SL, Bedtime, 2019 [facility] PRN for sleep, 0 Refill(s) Auryxia 420 mg, PO, 0 Active Refill(s) 2018 [facility] NIFEdipine 30 mg 30 mg=1 tab, Active oral tablet, PO, Daily, 0 2018 [facility] extended release Refill(s) sevelamer 800 mg=1 tab, Active carbonate 800 MG PO, 0 Refill(s) 2018 [facility] Oral Tablet [Renvela] pregabalin 50 MG 50 mg=1 cap, Active Oral Capsule PO, BID, 0 2018 [facility] [Lyrica] Refill(s) Insulin Glargine 35 units, Active 100 UNT/ML SUB-Q, Daily, 0 2018 [facility] Injectable Refill(s) Solution [Lantus] Allergies, Adverse Reactions, Alerts Substance Category Reaction Severity Reaction Status Date Comments Source type Reported No Known Assertion Drug Medication allergy [facility] Allergies Immunizations No Data Provided for This Section Results Order Name Results Value Reference Date Interpretation Comments Source Range Gram Stain No Wbc'S Or Organisms Seen 03/07 Report Many RBC's /2018 [facility] C Synov w/GS No Growth; 03/07 Holding /2018 [facility] CHEM PANEL Uric Acid 2.1 3.8 - 8.0 03/06 [facility] HEMATOLOGY INR 0.99 0.85 - 03/06 1.17 /2018 [facility] HEMATOLOGY PT 12.9 12.0 - 03/06 MH 14.7 /2019 [facility] HEMATOLOGY PTT 43.3 22.9 - 03/06 35.8 2019 [facility] HEMATOLOGY Sed Rate >100 0 - 15 03/06 [facility] IMMUNOLOGY Cyc Cit Pep <0.5 <=2.9 03/06 Ab unit/mL [facility] IMMUNOLOGY RF Qnt <10 0 - 20 03/06 [facility] IMMUNOLOGY C-REACTIVE 138.0 <=2.9 mg/L 03/06 PROTEIN /2019 [facility] Culture: Culture In 03/06 MH Anaerobic Progress [facility] CHEM PANEL eGFR 13 03/06 Result Comment: The [facility] eGFR is calculated using the CKD-EPI formula. In most young, healthy individuals the eGFR will be >90 mL/min/1.73m2 . The eGFR declines with age. An eGFR of 60-89 may be normal in some populations, particularly the elderly, for whom the CKD-EPI formula has not been extensively validated. Use of the eGFR is not recommended in the following populations:< br/>
Verena viduals with unstable creatinine concentration s, including patients and those with serious co-morbid conditions.<b r/>
Patie nts with extremes in muscle mass or diet.

The data above are obtained from the National Kidney Disease Education Program (NKDEP) which additionally recommends that when the eGFR is used in patients with extremes of body mass index for purposes of drug dosing, the eGFR should be multiplied by the estimated BMI. CHEM PANEL Potassium 4.7 3.5 - 5.1 03/06 MH Lvl /2018 [facility] CHEM PANEL Chloride Lvl 102 95 - 109 03/06 [facility] CHEM PANEL Creatinine 4.69 0.50 - 03/06 Lvl 1.40 [facility] CHEM PANEL Sodium Lvl 137 135 - 145 03/06 [facility] CHEM PANEL Glucose Lvl 162 70 - 99 03/06 [facility] CHEM PANEL BUN 15 7 - 22 03/06 [facility] CHEM PANEL CO2 24 24 - 32 03/06 [facility] CHEM PANEL Calcium Lvl 8.5 8.5 - 10.5 03/06 [facility] CHEM PANEL AGAP 15.7 10.0 - 03/06 MH 20.0 /2019 [facility] HEMATOLOGY Eosinophils 0.3 0.0 - 0.5 / MH # /2019 [facility] HEMATOLOGY Basophils # 0.1 0.0 - 0.2 03/06 /2018 [facility] HEMATOLOGY Neutrophils 3.7 1.5 - 8.1 / MH # /2019 [facility] HEMATOLOGY Lymphocytes 0.8 1.0 - 5.5 / MH # /2019 [facility] HEMATOLOGY Monocytes # 0.5 0.0 - 0.8 03/06 /2018 [facility] HEMATOLOGY Lymphocytes 15.8 20.0 - 03/06 MH 40.0 /2018 [facility] HEMATOLOGY Segs 68.7 45.0 - 03/06 MH 75.0 /2018 [facility] HEMATOLOGY Basophils 1.9 0.0 - 1.0 03/06 /2018 [facility] HEMATOLOGY Eosinophils 4.9 0.0 - 4.0 03/06 /2018 [facility] HEMATOLOGY Monocytes 8.7 2.0 - 12.0 03/06 /2018 [facility] HEMATOLOGY RDW 15.4 11.5 - 03/06 14.5 /2018 [facility] HEMATOLOGY MCH 30.1 27.0 - 03/06 31.0 /2018 [facility] HEMATOLOGY Platelet 351 133 - 450 03/06 /2018 [facility] HEMATOLOGY Hgb 9.6 14.0 - 03/06 MH 18.0 /2018 [facility] HEMATOLOGY MCHC 32.6 32.0 - 03/06 36.0 /2018 [facility] HEMATOLOGY Hct 29.4 42.0 - 03/06 54.0 /2018 [facility] HEMATOLOGY MCV 92.2 80.0 - 03/06 94.0 /2018 [facility] HEMATOLOGY MPV 7.2 7.4 - 10.4 03/06 [facility] HEMATOLOGY RBC 3.19 4.70 - 03/06 MH 6.10 /2019 [facility] HEMATOLOGY WBC 5.4 3.7 - 10.4 03/06 [facility] IMMUNOLOGY Hep Bs Ag Negative Negative 03/05 *NA* /2018 [facility] (03/05/19 8:30 AM) GENTAMICIN Gram Stain Rare Gram Positive Cocci 03/05 MH :SUSC:PT:I Report Many WBC's /2018 [facility] SOLATE:ORD QN:EDDY GENTAMICIN Culture: Few Enterobacter cloacae 03/05 MH :SUSC:PT:I Wound/Absces Few Klebsiella pneumoniae ssp pneumoniae /2018 [facility] SOLATE:ORD s w/Gram Few Pseudomonas aeruginosa QN:EDDY Stain Few Citrobacter koseri Growth In Subculture Broth Only : Staphylococcus Species, Not S. aureus [facility]ENT[facility]IC[facility] Citrobacter Citrobacte 03/05 MH :SUSC:PT:I koseri r koseri /2018 [facility] SOLATE:ORD QN:EDDY GENTAMICIN Pseudomonas Pseudomona 03/05 MH :SUSC:PT:I aeruginosa s [facility] SOLATE:ORD aeruginosa QN:EDDY GENTAMICIN Klebsiella Klebsiella 03/05 MH :SUSC:PT:I pneumoniae pneumoniae [facility] SOLATE:ORD ssp ssp QN:EDDY pneumoniae pneumoniae GENTAMICIN Enterobacter Enterobact 03/05 MH :SUSC:PT:I cloacae er cloacae [facility] SOLATE:ORD QN:EDDY CHEM PANEL Uric Acid 8.1 3.8 - 8.0 03/05 [facility] CHEM PANEL Lactic Acid 0.8 0.5 - 2.2 03/05 Lvl [facility] CHEM PANEL AST 19 0 - 37 03/05 [facility] CHEM PANEL Bili Total 0.4 0.2 - 1.3 03/05 [facility] CHEM PANEL eGFR 4 03/05 [facility] Comment: The [facility] eGFR is calculated using the CKD-EPI formula. In most young, healthy individuals the eGFR will be >90 mL/min/1.73m2 . The eGFR declines with age. An eGFR of 60-89 may be normal in some populations, particularly the elderly, for whom the CKD-EPI formula has not been extensively validated. Use of the eGFR is not recommended in the following populations:< br/>
Verena viduals with unstable creatinine concentration s, including patients and those with serious co-morbid conditions.<b r/>
Patie nts with extremes in muscle mass or diet.

The data above are obtained from the National Kidney Disease Education Program (NKDEP) which additionally recommends that when the eGFR is used in patients with extremes of body mass index for purposes of drug dosing, the eGFR should be multiplied by the estimated BMI. CHEM PANEL ALT 15 0 - 65 03/05 [facility] CHEM PANEL Albumin Lvl 2.5 3.5 - 5.0 03/05 [facility] CHEM PANEL Total 6.0 6.4 - 8.4 03/05 Protein [facility] CHEM PANEL Alk Phos 303 39 - 136 03/05 [facility] CHEM PANEL Creatinine 12.60 0.50 - 03/05 MH Lvl 1.40 /2018 [facility] CHEM PANEL BUN 55 7 - 22 03/05 [facility] CHEM PANEL Glucose Lvl 157 70 - 99 03/05 [facility] CHEM PANEL Chloride Lvl 100 95 - 109 03/05 [facility] CHEM PANEL Potassium 4.3 3.5 - 5.1 03/05 MH Lvl /2019 [facility] CHEM PANEL Sodium Lvl 135 135 - 145 03/05 [facility] CHEM PANEL Calcium Lvl 7.6 8.5 - 10.5 03/05 [facility] CHEM PANEL CO2 25 24 - 32 03/05 [facility] CHEM PANEL AGAP 14.3 10.0 - 03/05 MH 20.0 /2018 [facility] CHEM PANEL B/C Ratio 4 6 - 25 03/05 [facility] CHEM PANEL Globulin 3.5 2.7 - 4.2 03/05 /2018 [facility] CHEM PANEL A/G Ratio 0.7 0.7 - 1.6 03/05 [facility] HEMATOLOGY Basophils 2.3 0.0 - 1.0 03/05 [facility] HEMATOLOGY Neutrophils 3.3 1.5 - 8.1 03/05 MH # /2019 [facility] HEMATOLOGY Lymphocytes 1.0 1.0 - 5.5 03/05 MH # /2019 [facility] HEMATOLOGY Monocytes # 0.6 0.0 - 0.8 03/05 [facility] HEMATOLOGY Eosinophils 0.3 0.0 - 0.5 03/05 MH # /2019 [facility] HEMATOLOGY Segs 63.2 45.0 - 03/05 75.0 /2019 [facility] HEMATOLOGY Lymphocytes 18.1 20.0 - 03/05 40.0 2019 [facility] HEMATOLOGY Basophils # 0.1 0.0 - 0.2 03/05 [facility] HEMATOLOGY Monocytes 11.0 2.0 - 12.0 03/05 [facility] HEMATOLOGY Eosinophils 5.4 0.0 - 4.0 03/05 [facility] HEMATOLOGY MCH 29.8 27.0 - 03/05 31.0 [facility] HEMATOLOGY MCHC 33.1 32.0 - 03/05 36.0 /2018 [facility] HEMATOLOGY WBC 5.3 3.7 - 10.4 03/05 [facility] HEMATOLOGY RBC 2.61 4.70 - 03/05 MH 6.10 [facility] HEMATOLOGY Hgb 7.8 14.0 - 03/05 MH 18.0 [facility] HEMATOLOGY Hct 23.5 42.0 - 03/05 MH 54.0 [facility] HEMATOLOGY MCV 90.1 80.0 - 03/05 MH 94.0 [facility] HEMATOLOGY MPV 7.6 7.4 - 10.4 03/05 [facility] HEMATOLOGY Platelet 295 133 - 450 03/05 [facility] HEMATOLOGY RDW 15.6 11.5 - 03/05 MH 14. [facility] HEMATOLOGY Sed Rate >100 mm/hr 0 - 15 03/05 [facility] IMMUNOLOGY C-REACTIVE 202.0 <=2.9 mg/L 03/05 MH [facility] HEMATOLOGY WBC 6.0 3.7 - 10.4 02/21 [facility] HEMATOLOGY Hct 33.0 42.0 - 02/21 MH 54.0 [facility] HEMATOLOGY RBC 3.64 4.70 - 02/21 MH 6. [facility] HEMATOLOGY MCV 90.5 80.0 - 02/21 MH 94.0 [facility] HEMATOLOGY Hgb 10.8 14.0 - 02/21 MH 18.0 [facility] HEMATOLOGY RDW 14.6 11.5 - 02/21 MH 14. [facility] HEMATOLOGY Platelet 224 133 - 450 02/21 [facility] HEMATOLOGY MCHC 32.9 32.0 - 02/21 MH 36.0 [facility] HEMATOLOGY MCH 29.8 27.0 - 02/21 MH 31.0 [facility] HEMATOLOGY MPV 7.8 7.4 - 10.4 02/21 [facility] BLOOD BANK Antibody Negative 02/21 RESULTS Scrn (02/21/19 10:03 AM) /2018 [facility] BLOOD BANK ABO/Rh O POS 02/21 RESULTS /2018 [facility] ELECTROLYT Potassium 4.3 3.5 - 5.1 02/21 ES Lvl /2018 [facility] CHEM PANEL eGFR 7 02/21 Result Comment: The [facility] eGFR is calculated using the CKD-EPI formula. In most young, healthy individuals the eGFR will be >90 mL/min/1.73m2 . The eGFR declines with age. An eGFR of 60-89 may be normal in some populations, particularly the elderly, for whom the CKD-EPI formula has not been extensively validated. Use of the eGFR is not recommended in the following populations:< br/>
Verena viduals with unstable creatinine concentration s, including patients and those with serious co-morbid conditions.<b r/>
Patie nts with extremes in muscle mass or diet.

The data above are obtained from the National Kidney Disease Education Program (NKDEP) which additionally recommends that when the eGFR is used in patients with extremes of body mass index for purposes of drug dosing, the eGFR should be multiplied by the estimated BMI. CHEM PANEL AGAP 14.2 10.0 - 02/21 MH 20.0 [facility] CHEM PANEL BUN 35 7 - 22 02/21 [facility] CHEM PANEL Chloride Lvl 104 95 - 109 02/21 [facility] CHEM PANEL Calcium Lvl 8.4 8.5 - 10.5 02/21 [facility] CHEM PANEL CO2 26 24 - 32 02/21 [facility] CHEM PANEL Creatinine 7.88 0.50 - 02/21 Lvl 1.40 [facility] CHEM PANEL Glucose Lvl 75 70 - 99 02/21 [facility] CHEM PANEL Potassium 4.2 3.5 - 5.1 02/21 MH Lvl /2018 [facility] CHEM PANEL Sodium Lvl 140 135 - 145 02/21 [facility] BLOOD BANK Antibody Negative 01/29 RESULTS Scrn (01/29/19 10:27 AM) [facility] BLOOD BANK ABO/Rh O POS 01/29 RESULTS /2018 [facility] CHEM PANEL eGFR 6 01/29 Result Comment: The [facility] eGFR is calculated using the CKD-EPI formula. In most young, healthy individuals the eGFR will be >90 mL/min/1.73m2 . The eGFR declines with age. An eGFR of 60-89 may be normal in some populations, particularly the elderly, for whom the CKD-EPI formula has not been extensively validated. Use of the eGFR is not recommended in the following populations:< br/>
Verena viduals with unstable creatinine concentration s, including patients and those with serious co-morbid conditions.<b r/>
Patie nts with extremes in muscle mass or diet.

The data above are obtained from the National Kidney Disease Education Program (NKDEP) which additionally recommends that when the eGFR is used in patients with extremes of body mass index for purposes of drug dosing, the eGFR should be multiplied by the estimated BMI. CHEM PANEL Chloride Lvl 104 95 - 109 05/ [facility] CHEM PANEL Potassium 4.3 3.5 - 5.1 05/07 MH Lvl /2018 [facility] CHEM PANEL CO2 27 24 - 32 05/ [facility] CHEM PANEL Calcium Lvl 8.2 8.5 - 10.5 05/ [facility] CHEM PANEL Glucose Lvl 113 70 - 99 05/ [facility] CHEM PANEL Sodium Lvl 140 135 - 145 05/ [facility] CHEM PANEL Creatinine 8.24 0.50 - 05/ Lvl 1.40 /2018 [facility] CHEM PANEL BUN 45 7 - 22 05/ [facility] CHEM PANEL AGAP 13.3 10.0 - 05/ 20.0 /2018 [facility] HEMATOLOGY Monocytes # 0.6 0.0 - 0.8 05/ [facility] HEMATOLOGY Eosinophils 0.3 0.0 - 0.5 05/ MH # /2018 [facility] HEMATOLOGY Basophils # 0.1 0.0 - 0.2 05/ [facility] HEMATOLOGY Monocytes 11.3 2.0 - 12.0 05/ [facility] HEMATOLOGY Basophils 1.5 0.0 - 1.0 05/ [facility] HEMATOLOGY Eosinophils 5.5 0.0 - 4.0 05/ [facility] HEMATOLOGY Lymphocytes 15.4 20.0 - 05/ 40.0 /2019 [facility] HEMATOLOGY Segs 66.3 45.0 - 05/07 75.0 /2019 [facility] HEMATOLOGY Neutrophils 3.6 1.5 - 8.1 05/ MH # /2019 [facility] HEMATOLOGY Lymphocytes 0.8 1.0 - 5.5 05/ # /2019 [facility] HEMATOLOGY PTT 43.7 22.9 - 05 MH 35.8 /2019 [facility] HEMATOLOGY INR 1.00 0.85 - 05 1.17 /2019 [facility] HEMATOLOGY PT 13.0 12.0 - 05 MH 14.7 /2019 [facility] HEMATOLOGY Platelet 243 133 - 450 05 [facility] HEMATOLOGY MPV 7.5 7.4 - 10.4 05 [facility] HEMATOLOGY WBC 5.4 3.7 - 10.4 05/ [facility] HEMATOLOGY RBC 3.90 4.70 - 05/ MH 6.10 2018 [facility] HEMATOLOGY MCH 30.3 27.0 - 01/29 MH 31.0 /2018 [facility] HEMATOLOGY MCHC 33.6 32.0 - 01/29 MH 36.0 /2018 [facility] HEMATOLOGY Hgb 11.8 14.0 - 01/29 MH 18.0 [facility] HEMATOLOGY MCV 90.1 80.0 - 01/29 MH 94.0 /2018 [facility] HEMATOLOGY Hct 35.1 42.0 - 01/29 MH 54.0 [facility] HEMATOLOGY RDW 14.6 11.5 - 01/29 MH 14.5 [facility] BLOOD BANK Antibody Negative 12/11 RESULTS Scrn (12/11/18 12:35 PM) [facility] BLOOD BANK ABO/Rh O POS 12/11 RESULTS /2018 [facility] CHEM PANEL eGFR 6 12/11 Result Comment: The [facility] eGFR is calculated using the CKD-EPI formula. In most young, healthy individuals the eGFR will be >90 mL/min/1.73m2 . The eGFR declines with age. An eGFR of 60-89 may be normal in some populations, particularly the elderly, for whom the CKD-EPI formula has not been extensively validated. Use of the eGFR is not recommended in the following populations:< br/>
Verena viduals with unstable creatinine concentration s, including patients and those with serious co-morbid conditions.<b r/>
Patie nts with extremes in muscle mass or diet.

The data above are obtained from the National Kidney Disease Education Program (NKDEP) which additionally recommends that when the eGFR is used in patients with extremes of body mass index for purposes of drug dosing, the eGFR should be multiplied by the estimated BMI. CHEM PANEL Glucose Lvl 62 70 - 99 12/11 [facility] CHEM PANEL BUN 62 7 - 22 12/11 [facility] CHEM PANEL Calcium Lvl 8.1 8.5 - 10.5 12/11 [facility] CHEM PANEL CO2 27 24 - 32 12/11 [facility] CHEM PANEL Chloride Lvl 105 95 - 109 12/11 [facility] CHEM PANEL Potassium 6.0 3.5 - 5.1 12/11 Lvl /2018 [facility] CHEM PANEL Sodium Lvl 140 135 - 145 12/11 [facility] CHEM PANEL Creatinine 8.46 0.50 - 12/11 Lvl 1.40 [facility] CHEM PANEL AGAP 14.0 10.0 - 12/11 MH 20.0 /2019 [facility] HEMATOLOGY Basophils 1.9 0.0 - 1.0 12/11 /2018 [facility] HEMATOLOGY Neutrophils 2.7 1.5 - 8.1 12/11 MH # /2019 [facility] HEMATOLOGY Eosinophils 4.4 0.0 - 4.0 03 /2018 [facility] HEMATOLOGY Monocytes 11.6 2.0 - 12.0 12/11 /2018 [facility] HEMATOLOGY Basophils # 0.1 0.0 - 0.2 12/11 /2018 [facility] HEMATOLOGY Lymphocytes 1.1 1.0 - 5.5 12/11 MH # /2018 [facility] HEMATOLOGY Eosinophils 0.2 0.0 - 0.5 12/11 MH # /2018 [facility] HEMATOLOGY Monocytes # 0.5 0.0 - 0.8 12/11 /2018 [facility] HEMATOLOGY Lymphocytes 23.7 20.0 - 12/11 40.0 /2018 [facility] HEMATOLOGY Segs 58.4 45.0 - 12/11 MH 75.0 /2018 [facility] HEMATOLOGY PTT 42.9 22.9 - 12/11 35.8 /2018 [facility] HEMATOLOGY INR 1.04 0.85 - 12/11 MH 1.17 /2018 [facility] HEMATOLOGY PT 13.4 12.0 - 12/11 MH 14.7 /2018 [facility] HEMATOLOGY MCHC 32.3 32.0 - 12/11 MH 36.0 /2018 [facility] HEMATOLOGY RDW 16.9 11.5 - 12/11 MH 14.5 /2018 [facility] HEMATOLOGY MCH 30.1 27.0 - 12/11 MH 31.0 /2018 [facility] HEMATOLOGY Platelet 214 133 - 450 12/11 [facility] HEMATOLOGY MPV 8.1 7.4 - 10.4 12/11 [facility] HEMATOLOGY MCV 93.1 80.0 - 12/11 94.0 /2019 [facility] HEMATOLOGY Hgb 11.0 14.0 - 12/11 MH 18.0 /2019 [facility] HEMATOLOGY Hct 34.1 42.0 - 12/11 MH 54.0 /2019 [facility] HEMATOLOGY WBC 4.6 3.7 - 10.4 12/11 /2018 [facility] HEMATOLOGY RBC 3.66 4.70 - 12/11 MH 6.10 /2018 [facility] SPECIAL Hgb A1C 5.0 <=5.6 % 12/11 CHEMISTRY [facility] Pathology Reports No Data Provided for This Section Diagnostic Reports Report Value Date Source Ankle wo contrast MRI Clinical Indication: Right ankle pain and swelling - history of gout; rule out osteomyelitis 03/06/2019 [facility] Comparison: Right ankle series 03/04/2019 TECHNIQUE: Multiplanar T1, T2 and PD weighted sequences of the right ankle. IV CONTRAST TYPE and VOLUME: None FINDINGS: There is extensive hypointense T1 and hyperintense T2 signal alteration involving the distal tibia, distal fibula, and talus. Smaller focus of marrow signal alteration also noted involving the anterior facet of the calcaneus. Fragmented appearance and large erosion of the talar head. Smaller erosion of the medial malleolus. Moderate complex tibiotalar joint effusion. Small subtalar joint effusion also noted extending into the posterior subtalar recess. Diffuse ankle soft tissue swelling. No organized fluid collections to suggest an abscess. Impression: Extensive marrow signal abnormality involving the distal tibia, distal fibula , talus and to a lesser extent the calcaneus with associated soft tissue swelling and complex appearing joint effusions. Larg e erosion of the talus and smaller erosion in the medial malleolus also noted. Findings are consistent with provided history of gout. However, superimposed osteomyelitis/septic arthropathy cannot be exc luded on the basis of this exam. Consider correlation with percutaneous fluid sampling and analysis. SL: [id number] Foot wo contrast MRI Clinical Indication: - history of gout , right foot and ankle pain 03/06/2019 [facility] Comparison: Right ankle series 03/04/2019 TECHNIQUE: Multiplanar T1, T2 and PD weighted sequences of the right foot. IV CONTRAST TYPE and VOLUME: None FINDINGS: No marrow signal alteration of the imaged foot to suggest osteomyelitis. No acute bony contusion or fracture. Dorsal subcutaneous edema. No organized fluid collections. IMPRESSION: No evidence for osteomyelitis of the right imaged right foot. Dorsal subcutaneous edema. No abscess. SL: [id number] Arthrocentesis small Please discard the moderate sedation portion of the report. Moderate sedation was not utilized during this exam. 03/06/2019 [facility] Joint DX PROCEDURE: Sonographic guided biopsy of right ankle. INDICATION: Other- See Reason for Consult - Right ankle swelling, r/o pseudogout vs septic joint.. COMPARISON: Magnetic resonance imaging right ankle 03/07/2019 MODERATE SEDATION: I supervised moderate sedation during this procedure. The patient was monitored by nurse using automated blood pressure, EKG and pulse oximetry. The moderate sedation record is perma nently stored in the hospital information system. The personal supervised moderate sedation time was minutes. Medications administered: mg of IV Versed and micrograms of IV Fentanyl. PROCEDURE: Sonographic was used to evaluate potential biopsy site. Preliminary sonographic imaging demonstrates small complex ankle joint effusion. The procedure, risks, benefits and alternatives were discussed. Informed consent was obtained. Timeout was performed prior to the procedure. The overlying skin was sterilely prepped and draped. 1% lidocaine was used for local anesthesia. Using imaging guidance, a 21-gauge needle was advanced into the right ankle joint. Images were obtained t o document needle positions for permanent recording and reporting. Only approximately 1 mL of blood-tinged synovial fluid could be aspirated. The samples were immediately submitted to pathology departme for requested analysis. There were no evident complications and the patient had no complaints. Pressure was applied at the puncture site with adequate hemostasis. Final pathology results are pending. IMPRESSION: 1. Technically successful sonographically guided right ankle arthrocentesis. Ankle 3 views DX Patient Name: MARNIE LYLES 03/04/2019 [facility] : 1960; Age: 58 years y/o Male MR: [id number] Study: 3 view examination of the right ankle dated 03/04/2019. Clinical Indication: - swelling of R ankle; Comparison: None There is marked soft tissue swelling about the right ankle. There is some bony destruction to the medial aspect of the right distal tibial epiphysis and to the medial superior aspect of the talus. There is fracturing of the mid and medial superior aspect of the talus with slight depression at the mid superior aspect of the talus. 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 There is a mild widening to the anterior right ankle joint. Mild to moderate calcaneal spurring at the plantar fascia tendon insertion site. Degenerative changes are seen about the tarsal bones. Vascular calcification seen about the right ankle and visualized right foot and distal calf. SL: CSODERSTROM-PC Chest 2 views DX Chest 2 views DX 12/11/2018 [facility] CLINICAL HISTORY: Coughing - pre-op COMPARISON: none FINDINGS: SUPPORT DEVICES: Right IJ dual-lumen catheter terminates in the region of the SVC. LUNGS: Lungs are reasonably well inflated. Small bibasilar effusions. Lungs are clear. No pneumothorax is evident. CARDIOVASCULAR: Cardiac silhouette size is normal. Pulmonary vasculature is within normal limits. MEDIASTINUM/TONY: Trachea is midline. No contour abnormality is noted. OSSEOUS STRUCTURES: No acute bony abnormality is noted. SOFT TISSUES: No significant soft tissue abnormality is noted. IMPRESSION: Small bibasilar effusions. No other significant abnormality is noted. SL: [id number] Consultation Notes No Data Provided for This Section Discharge Summaries No Data Provided for This Section History and Physicals No Data Provided for This Section Vital Signs Vital Sign Value Date Comments Source Respitory Rate 18 03/07/2019 [facility] Systolic (mm Hg) 149 03/07/2019 [facility] Diastolic (mm Hg) 69 03/07/2019 [facility] Temperature Oral (F) 98.2 F 03/07/2019 [facility] Heart Rate 69 03/07/2019 [facility] Respitory Rate 12 03/07/2019 [facility] Respitory Rate 18 03/07/2019 [facility] Systolic (mm Hg) 159 03/07/2019 [facility] Diastolic (mm Hg) 68 03/07/2019 [facility] Heart Rate 68 03/07/2019 [facility] Temperature Oral (F) 97.6 F 03/07/2019 [facility] Systolic (mm Hg) 157 03/07/2019 [facility] Diastolic (mm Hg) 67 03/07/2019 [facility] Heart Rate 69 03/07/2019 [facility] Temperature Oral (F) 98.3 F 03/07/2019 [facility] Height 172.72 cm 03/04/2019 [facility] Weight 92.227 03/04/2019 [facility] BMI Calculated 30.92 03/04/2019 [facility] Respitory Rate 16 02/21/2019 [facility] Systolic (mm Hg) 103 02/21/2019 [facility] Diastolic (mm Hg) 51 02/21/2019 [facility] Systolic (mm Hg) 98 02/21/2019 [facility] Diastolic (mm Hg) 52 02/21/2019 [facility] Respitory Rate 16 02/21/2019 [facility] Systolic (mm Hg) 94 02/21/2019 [facility] Diastolic (mm Hg) 50 02/21/2019 [facility] Respitory Rate 13 02/21/2019 [facility] Heart Rate 66 01/29/2019 [facility] Temperature Oral (F) 97.5 F 01/29/2019 [facility] BMI Calculated 30.4 01/29/2019 [facility] Weight 90.682 01/29/2019 [facility] Height 172.72 cm 01/29/2019 [facility] Systolic (mm Hg) 133 12/20/2018 [facility] Diastolic (mm Hg) 57 12/20/2018 [facility] Respitory Rate 13 12/20/2018 [facility] Respitory Rate 14 12/20/2018 [facility] Systolic (mm Hg) 142 12/20/2018 [facility] Diastolic (mm Hg) 60 12/20/2018 [facility] Respitory Rate 16 12/20/2018 [facility] Systolic (mm Hg) 123 12/20/2018 [facility] Diastolic (mm Hg) 66 12/20/2018 [facility] Temperature Oral (F) 97.3 F 12/20/2018 [facility] Height 172.72 cm 12/11/2018 [facility] BMI Calculated 30.49 12/11/2018 [facility] Weight 90.966 12/11/2018 [facility] Temperature Oral (F) 97.8 F 12/11/2018 [facility] Heart Rate 69 12/11/2018 [facility] Encounters Location Location Encounter Encounter Reason Attending ADM DC Status Source Details Type Number For Provider Date Date Visit [facility] [id number] Stephan 12/20 12/[address] [facility] Outpatient [id number] Juventino 12/25 Active [facility] Phone [id number] 01/15 01/17 [facility] Outpatient [id number] Juventino 01/31 [facility] [id number] Juventino 01/31 01/31 [facility] Surgery [id number] Stephan 02/21 02/[address] [facility] Inpatient [id number] Rolan Rice 03/04 03/07 [facility] Procedures Procedure Code Date Perfomer Comments Source Stent placement [id number] 10/26/2018 [facility] Stent placement [id number] 10/26/2018 [facility] Stent placement [id number] 07/26/2018 [facility] Stent placement [id number] 07/26/2018 [facility] Amputation of toe [id number] 11/23/2005 [facility] Amputation of toe [id number] 11/23/2005 [facility] - Pulmonary [id number] [facility] arteriovenous fistula operation Assessment and Plan Assessment and Plan Date Source Extracted from:Title: History and Physical 03/07/2019 [facility] Author: Veena De La Rosa MD Date: 03/04/19 58-year-old male with history of ESRD, type 2 diabetes, hypertension, CAD status post stentswho presented to a freestanding ED in [place] complaining of swelling and purulent drainage coming from his right AV fistula. 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 Sexual Sexually active: No. Exercise 1 Employment/School Status: Employed. Work/School description: [place], [place] Alcohol Current, Type Wine. Frequency: 1-2 times per week.2 Smoking Status Former smoker; Type: Cigarettes; Exposure to Tobacco Smoke None; Cigarette Smoking Last 365 Days No; Reg Smoking Cessation Counseling No; Other Tobacco Frequency Pt. quit in 2016.; entered on: 03/04/19 [id number] Social History TypeResponse 12/11/2018 [facility] Substance Abuse Use: None. Employment/School Status: Employed. Work/School description: [employer]. Alcohol Current, Type Wine.1 Smoking Status Former smoker; Type: Cigarettes; Exposure to Tobacco Smoke None; Cigarette Smoking Last 365 Days No; Reg Smoking Cessation Counseling No; Other Tobacco Frequency Pt. quit in 2016.; entered on: 01/29/19 1Occasionally Family History No Data Provided for This Section Advance Directives No Data Provided for This Section Functional Status No Data Provided for This Section
--- OUTSIDE RECORDS SUMMARY | 2019-04-17 20:44 | XMS REPORT | Summary of Care ---
:1960 Author Organization [facility] Address [address] [place] [address]- Encounter HQ Encntr_aliamita(FIN) [id number] Date(s): 01/15/19 - 01/16/19 [facility] [address] [place] [address]- [phone] Vital Signs No data available for this section Problem List Condition Effective Dates Status Health Status Informant DM (diabetes mellitus)(Confirmed) Active SOB (shortness of breath) on Active exertion(Confirmed) ESRD (end stage renal disease) on Active dialysis(Confirmed) Hand pain(Confirmed) Active Heart failure(Confirmed) Resolved HTN (hypertension)(Confirmed) Active Heart attack(Confirmed) Resolved Paresthesia(Confirmed) Active Simple obesity(Confirmed) Active Sleep apnea(Confirmed) Active H/O sudden (Confirmed) Active Allergies, Adverse Reactions, Alerts Substance Reaction Severity Status NKDA Active Medications gabapentin 300 mg oral capsule 300 mg=1 cap, PO, Daily, # 30 cap, 3 Refill(s), Pharmacy: [facility] [id number] Start Date: 01/16/19 Stop Date: 05/16/19 Status: Ordered Results No data available for this section Immunizations No data available for this section Procedures Procedure Date Related Diagnosis Body Site Status Stent placement 10/26/18 Completed Stent placement 07/26/18 Completed Amputation of toe 11/23/05 Completed Social History Social History Type Response Substance Abuse Use: None. Employment/School Status: Employed. Work/School description: [employer] Alcohol Current, Type Wine.1 Smoking Status Former smoker; Type: Cigarettes; Exposure to Tobacco Smoke Unable to obtain; Cigarette Smoking Last 365 Days No; Reg Smoking Cessation Counseling No entered on: 12/25/18 1Occasionally Assessment and Plan No data available for this section
--- OUTSIDE RECORDS SUMMARY | 2019-04-17 20:45 | XMS REPORT | Summary of Care ---
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, implant and graft, initial encounter (Final) - Discharge Disposition: Home or Self Care Attending Physician: Rolan Rice DO Admitting Physician: Rolan Rice DO Vital Signs Most recent to oldest 1 2 3 [Reference Range]: Height 172.72 cm (03/04/19 5:27 PM) Current Weight 88.682 kg 90 kg 92.318 kg (03/07/19 5:38 AM) (03/06/19 4:58 AM) (03/05/19 5:13 AM) Temperature Oral [96.4-99.1 98.2 DegF 97.6 DegF 98.3 DegF DegF] (03/07/19 4:13 PM) (03/07/19 12:06 PM) (03/07/19 7:10 AM) Blood Pressure [90-140/60-90 149/69 mmHg 159/68 mmHg 157/67 mmHg mmHg] *HI* *HI* *HI* (03/07/19 4:13 PM) (03/07/19 12:06 PM) (03/07/19 7:10 AM) Respiratory Rate [14-20 18 BRMIN 12 BRMIN 18 BRMIN BRMIN] (03/07/19 4:13 PM) *LOW* (03/07/19 12:06 PM) (03/07/19 2:58 PM) Peripheral Pulse Rate [60-100 69 bpm 68 bpm 69 bpm bpm] (03/07/19 4:13 PM) (03/07/19 12:06 PM) (03/07/19 7:10 AM) Weight 92.227 kg (03/04/19 5:27 PM) Body Mass Index 30.92 m2 (03/04/19 5:27 PM) Problem List Condition Effective Dates Status Health Status Informant DM (diabetes mellitus)(Confirmed) Active SOB (shortness of breath) on Active exertion(Confirmed) ESRD (end stage renal disease) on Active dialysis(Confirmed) Hand pain(Confirmed) Active Heart failure(Confirmed) Resolved HTN (hypertension)(Confirmed) Active Heart attack(Confirmed) Resolved Paresthesia(Confirmed) Active Simple obesity(Confirmed) Active Sleep apnea(Confirmed) Active H/O sudden (Confirmed) Active Allergies, Adverse Reactions, Alerts No Known Medication Allergies Medications acetaminophen 650 mg, 2 tab, Route: PO, Drug form: TAB, Q4H, Dosing Weight 92.227, kg, PRN Pain 1-3/Temp > 100.4 F, Start date: 03/04/19 21:21:00 CDT, Duration: 30 day , Stop date: 04/03/19 21:20:00 CDT Notes: Do not exceed 4 gm/day. (Same as: Tylenol) Start Date: 03/04/19 Stop Date: 03/07/19 Status: Discontinuedalbuterol-ipratropium 2.5-0.5 mg inhalation solution 3 mL, INHALATION, Q4H, PRN Wheezing, # 30 ea, 1 Refill(s) Start Date: 03/04/19 Status: Orderedalbuterol-ipratropium 2.5-0.5 mg inhalation solution 3 mL, Route: INHALATION, Drug Form: SOLN, Dosing Weight 92.227, kg, RQ4H, PRN Shortness of breath, Start date: 03/04/19 22:42:00 CDT, Duration: 30 day, Stop date: 04/03/19 22:41:00 CDT Notes: (Same as: Duoneb) Start Date: 03/04/19 Stop Date: 03/07/19 Status: Discontinuedaspirin 81 mg tablet, enteric coated 81 mg, 1 tab, Route: PO, Drug form: ECTAB, Daily, Dosing Weight 92.227, kg, Start date: 03/05/19 9:00:00 CDT, Duration: 30 day, Stop date: 04/03/19 9:00:00 CDT Notes: Do not crush or chew.(Same As: Ecotrin) Start Date: 03/05/19 Stop Date: 03/07/19 Status: Discontinuedatorvastatin 10 mg, 1 tab, Route: PO, Drug form: TAB, Bedtime, Dosing Weight 92.227, kg, Start date: 03/05/19 21:00:00 CDT, Duration: 30 day, Stop date: 04/03/19 21:00: 00 CDT Notes: (Same As: Lipitor) Start Date: 03/05/19 Stop Date: 03/07/19 Status: Discontinuedatorvastatin 10 mg oral tablet 10 mg=1 tab, PO, Bedtime, # 90 tab, 0 Refill(s) Start Date: 03/04/19 Status: OrderedBenadryl 25 mg, 1 tab, Route: PO, Drug form: TAB, TID, Dosing Weight 92.227, kg, PRN Itching, Start date: 03/05/19 4:26:00 CDT, Duration: 30 day, Stop date: 4:25:00 CDT Start Date: 03/05/19 Stop Date: 03/07/19 Status: Discontinuedbumetanide 2 mg, 2 tab, Route: PO, Drug form: TAB, BID Diuretic, Dosing Weight 92.227, kg, Start date: 198:00:00 CDT, Duration: 30 day, Stop date: 04/03/19 16:00:00 CDT Notes: (Same As: Bumex) Start Date: 03/05/19 Stop Date: 03/07/19 Status: Discontinuedcarvedilol 6.25 mg, 2 tab, Route: PO, Drug form: TAB, Q12H, Dosing Weight 92.227, kg, Start date: 03/05/19 9:00:00 CDT, Duration: 30 day, Stop date: 04/03/19 21:00: 00 CDT Notes: Give with food. (Same As: Coreg) Start Date: 03/05/19 Stop Date: 03/07/19 Status: Discontinuedcefepime + Sodium Chloride 0.9% IV 100 mL 1 gm, Route: IVPB, [id number], Dosing Weight 92.227, kg, (CrCl <10 ml/min or IHD ), Start date: 03/04/19 22:00:00 CDT, Duration: 10 day, Stop date: 03/13/19 18: 00:00 CDT, ABX Indication: Skin/Soft Tissue Infection Notes: (Same As: Maxipime) MEDICATION WASTE Product Size: 1000 mgProduct Wasted: ___ mg Start Date: 03/04/19 Stop Date: 03/07/19 Status: Discontinuedcolchicine 0.6 mg, 1 tab, Route: PO, Drug form: TAB, BID, Dosing Weight 92.227, kg, Priority: NOW, Start date: 03/06/19 14:53:00 CDT, Duration: 30 day, Stop date: 04/05/19 9:00:00 CDT Start Date: 03/06/19 Stop Date: 03/07/19 Status: Discontinuedcolchicine 0.6 mg oral tablet 0.6 mg=1 tab, PO, BID, # 60 tab, 0 Refill(s), Pharmacy: [facility] [id number] Start Date: 03/07/19 Stop Date: 04/06/19 Status: OrderedDextrose 50% Syringe 25 gm, 50 mL, Route: IVP, Drug Form: INJ, Dosing Weight 92.227, kg, PRN, PRN Blood Glucose Results, Start date: 03/04/19 21:21:00 CDT, Duration: 30 day, Stop date: 04/03/19 21:20:00 CDT Start Date: 03/04/19 Stop Date: 03/07/19 Status: DiscontinuedDextrose 50% Syringe 12.5 gm, 25 mL, Route: IVP, Drug Form: INJ, Dosing Weight 92.227, kg, PRN, PRN Blood Glucose Results, Start date: 03/04/19 21:21:00 CDT, Duration: 30 day, Stop date: 04/03/19 21:20:00 CDT Start Date: 03/04/19 Stop Date: 03/07/19 Status: DiscontinuedEpogen 10,000 unit, 1 mL, Route: SUB-Q, Drug form: INJ, Q-M-W-F, Dosing Weight 92.227, kg, Start date: 03/05/19 17:00:00 CDT, Stop date: 04/03/19 17:00:00 CDT Notes: (Same as: Procrit) epoetin olamide 43587 unit/1 ml VL.For dialysis use only. (Procrit)WASTE: F/P- Red; E -Red MEDICATION WASTE Product Size: 43399 unitProduct Wasted: ___ unit Start Date: 03/05/19 Stop Date: 03/07/19 Status: Discontinuedeszopiclone 3 mg, Route: PO, Drug form: TAB, Bedtime, Dosing Weight 92.227, kg, PRN Insomnia , Start date: 03/04/19 22:42:00 CDT, Duration: 30 day, Stop date: 04/03/19 22:41 :00 CDT Start Date: 03/04/19 Stop Date: 03/04/19 Status: Deletedeszopiclone 3 mg oral tablet 3 mg=1 tab, PO, Bedtime, PRN for insomnia, 0 Refill(s) Start Date: 03/04/19 Stop Date: 03/07/19 Status: DiscontinuedFlonase 0.05 mg/inh nasal spray 50 microgram, Route: NASAL, Drug Form: SPRY, Dosing Weight 92.227, kg, BID, Start date: 03/05/19 17:00:00 CDT, Duration: 30 day, Stop date: 04/04/19 9:00: 00 CDT Notes: (Same as: Flonase) Start Date: 03/05/19 Stop Date: 03/07/19 Status: DiscontinuedFlonase 0.05 mg/inh nasal spray 1 spray, NASAL, BID, # 16 gm, 0 Refill(s) Start Date: 03/05/19 Status: Orderedgabapentin 300 mg oral capsule 300 mg, 1 cap, Route: PO, Drug form: CAP, Daily, Dosing Weight 92.227, kg, Start date: 03/05/19 9:00:00 CDT, Duration: 30 day, Stop date: 04/03/19 9:00:00 CDT Notes: (Same as: Neurontin) Start Date: 03/05/19 Stop Date: 03/07/19 Status: Discontinuedglucagon 1 mg, Route: IM, Drug form: PDR/INJ, PRN, Dosing Weight 92.227, kg, PRN Blood Glucose Results, Startdate: 03/04/19 21:21:00 CDT, Duration: 30 day, Stop date: 04/03/19 21:20:00 CDT Start Date: 03/04/19 Stop Date: 03/07/19 Status: Discontinuedheparin 5,000 unit, 1 mL, Route: SUB-Q, Drug form: INJ, Q8H, Dosing Weight 92.227, kg, Start date: 03/05/19 0:00:00 CDT, Duration: 30 day, Stop date: 04/03/19 16:00: 00 CDT Notes: porcine heparin Start Date: 03/05/19 Stop Date: 03/07/19 Status: Discontinuedinsulin lispro 5 unit, 0.05 mL, Route: SUB-Q, Drug form: SOLN, TID-Before Meals, Dosing Weight 92.227, kg, PRN Blood Glucose Results, Start date: 03/04/19 21:21:00 CDT, Duration: 30 day, Stop date: 04/03/19 21:20:00 CDT Notes: (Same as: Humalog) Roll in palms of hands gently; Do not shake vigorously. WASTE: F/P - Black; E - Municipal Trash BinStable for 28 days at room temperature.Expires in days from Date Start Date: 03/04/19 Stop Date: 03/07/19 Status: Discontinuedinsulin lispro 2 unit, 0.02 mL, Route: SUB-Q, Drug form: SOLN, TID-Before Meals, Dosing Weight 92.227, kg, PRN Blood Glucose Results, Start date: 03/04/19 21:21:00 CDT, Duration: 30 day, Stop date: 04/03/19 21:20:00 CDT Notes: (Same as: Humalog) Roll in palms of hands gently; Do not shake vigorously. WASTE: F/P - Black; E - Municipal Trash BinStable for 28 days at room temperature.Expires in days from Date Start Date: 03/04/19 Stop Date: 03/07/19 Status: Discontinuedinsulin lispro 1 unit, 0.01 mL, Route: SUB-Q, Drug form: SOLN, TID-Before Meals, Dosing Weight 92.227, kg, PRN Blood Glucose Results, Start date: 03/04/19 21:21:00 CDT, Duration: 30 day, Stop date: 04/03/19 21:20:00 CDT Notes: (Same as: Humalog) Roll in palms of hands gently; Do not shake vigorously. WASTE: F/P - Black; E - Municipal Trash BinStable for 28 days at room temperature.Expires in days from Date Start Date: 03/04/19 Stop Date: 03/07/19 Status: Discontinuedinsulin lispro 4 unit, 0.04 mL, Route: SUB-Q, Drug form: SOLN, TID-Before Meals, Dosing Weight 92.227, kg, PRN Blood Glucose Results, Start date: 03/04/19 21:21:00 CDT, Duration: 30 day, Stop date: 04/03/19 21:20:00 CDT Notes: (Same as: Humalog) Roll in palms of hands gently; Do not shake vigorously. WASTE: F/P - Black; E - Municipal Trash BinStable for 28 days at room temperature.Expires in days from Date Start Date: 03/04/19 Stop Date: 03/07/19 Status: Discontinuedinsulin lispro 3 unit, 0.03 mL, Route: SUB-Q, Drug form: SOLN, TID-Before Meals, Dosing Weight 92.227, kg, PRN Blood Glucose Results, Start date: 03/04/19 21:21:00 CDT, Duration: 30 day, Stop date: 04/03/19 21:20:00 CDT Notes: (Same as: Humalog) Roll in palms of hands gently; Do not shake vigorously. WASTE: F/P - Black; E - Municipal Trash BinStable for 28 days at room temperature.Expires in days from Date Start Date: 03/04/19 Stop Date: 03/07/19 Status: Discontinuedinsulin lispro 3 unit, 0.03 mL, Route: SUB-Q, Drug form: SOLN, Bedtime, Dosing Weight 92.227, kg, PRN Blood GlucoseResults, Start date: 03/04/19 21:21:00 CDT, Duration: 30 day, Stop date: 04/03/19 21:20:00 CDT Notes: (Same as: Humalog) Roll in palms of hands gently; Do not shake vigorously. WASTE: F/P - Black; E - Municipal Trash BinStable for 28 days at room temperature.Expires in days from Date Start Date: 03/04/19 Stop Date: 03/07/19 Status: Discontinuedinsulin lispro 2 unit, 0.02 mL, Route: SUB-Q, Drug form: SOLN, Bedtime, Dosing Weight 92.227, kg, PRN Blood GlucoseResults, Start date: 03/04/19 21:21:00 CDT, Duration: 30 day, Stop date: 04/03/19 21:20:00 CDT Notes: (Same as: Humalog) Roll in palms of hands gently; Do not shake vigorously. WASTE: F/P - Black; E - Municipal Trash BinStable for 28 days at room temperature.Expires in days from Date Start Date: 03/04/19 Stop Date: 03/07/19 Status: Discontinuedinsulin lispro 4 unit, 0.04 mL, Route: SUB-Q, Drug form: SOLN, Bedtime, Dosing Weight 92.227, kg, PRN Blood GlucoseResults, Start date: 03/04/19 21:21:00 CDT, Duration: 30 day, Stop date: 04/03/19 21:20:00 CDT Notes: (Same as: Humalog) Roll in palms of hands gently; Do not shake vigorously. WASTE: F/P - Black; E - Municipal Trash BinStable for 28 days at room temperature.Expires in days from Date Start Date: 03/04/19 Stop Date: 03/07/19 Status: Discontinuedinsulin lispro 1 unit, 0.01 mL, Route: SUB-Q, Drug form: SOLN, Bedtime, Dosing Weight 92.227, kg, PRN Blood GlucoseResults, Start date: 03/04/19 21:21:00 CDT, Duration: 30 day, Stop date: 04/03/19 21:20:00 CDT Notes: (Same as: Humalog) Roll in palms of hands gently; Do not shake vigorously. WASTE: F/P - Black; E - Municipal Trash BinStable for 28 days at room temperature.Expires in days from Date Start Date: 03/04/19 Stop Date: 03/07/19 Status: DiscontinuedLactated Ringers (Bolus) IV 125 mL, 75 ml/hr, Infuse Over: 1.7 hr, Route: IV, 125, Drug form: SOLN, ONCE, Dosing Weight 92.227 kg, Start date: 03/04/19 21:22:00 CDT, Stop date: 03/04/19 21:22:00 CDT Start Date: 03/04/19 Stop Date: 03/04/19 Status: Completedlactulose 10 g/15 mL oral syrup 20 gm, 30 mL, Route: PO, Drug form: SYRP, After Dinner, Dosing Weight 92.227, kg , Start date: 03/05/19 17:00:00 CDT, Duration: 30 day, Stop date: 04/03/19 17:00 :00 CDT Notes: (Same as:Chronulac) Start Date: 03/05/19 Stop Date: 03/07/19 Status: Discontinuedlactulose 10 g/15 mL oral syrup 20 gm=30 mL, PO, After Dinner, 0 Refill(s) Start Date: 03/04/19 Status: OrderedLantus 100 units/mL 35 unit, 0.35 mL, Route: SUB-Q, Drug form: SOLN, Daily, Dosing Weight 92.227, kg , Start date: 03/05/19 9:00:00 CDT, Duration: 30 day, Stop date: 04/03/19 9:00: 00 CDT Notes: (Same as: Lantus)Do not hold insulin without contacting prescriberWASTE: F/P - Black; E - Municipal Trash Bin"single patient use only"Stable for 28 days at room temperature Expires in days from Date Start Date: 03/05/19 Stop Date: 03/07/19 Status: DiscontinuedLevaquin 500 mg oral tablet 500 mg=1 tab, PO, Q24H, X 10 day, # 10 tab, 0 Refill(s), Pharmacy: [facility] [id number] Start Date: 03/07/19 Stop Date: 03/17/19 Status: OrderedNephro-Dana Rx 1 tab, Route: PO, Drug Form: TAB, Dosing Weight 92.227, kg, Daily, Start date: 03/05/19 9:00:00 CDT,Duration: 30 day, Stop date: 04/03/19 9:00:00 CDT Notes: (Same as: Nephro-Dana Rx and Diatx) Give with food. Start Date: 03/05/19 Stop Date: 03/07/19 Status: DiscontinuedNIFEdipine 30 mg oral tablet, extended release 30 mg, 1 tab, Route: PO, Drug form: ERTAB, Before Breakfast, Dosing Weight 92.227, kg, Start date: 03/05/19 7:30:00 CDT, Duration: 30 day, Stop date: 04/03 7:30:00 CDT Notes: (Same as: Adalat CC, Procardia XL) Give on empty stomach. Take 1 hour before or 2 hours after meal; "Avoid grapefruit and grapefruit juice". Do not crush Start Date: 03/05/19 Stop Date: 03/07/19 Status: DiscontinuedNIFEdipine 30 mg oral tablet, extended release 30 mg=1 tab, PO, Before Breakfast, # 30 tab, 0 Refill(s) Start Date: 03/04/19 Status: Orderednitroglycerin 0.4 mg sublingual tablet 0.4 mg, 1 tab, Route: SL, Drug form: TAB, Q5Min, Dosing Weight 92.227, kg, PRN Chest Pain, Start date: 03/04/19 22:42:00 CDT, Duration: 30 day, Stop date: 07/13 22:41:00 CDT Notes: (Same as:Nitroquick, Nitrostat)"Do Not Crush" Sublingual tablet Start Date: 03/04/19 Stop Date: 03/07/19 Status: Discontinuednitroglycerin 0.4 mg sublingual tablet 0.4 mg=1 tab, SL, Q5Min, PRN Chest pain, Give up to 3 doses. Call 911 if pain persists., # 100 tab, 0 Refill(s) Start Date: 03/04/19 Status: OrderedNorco 5/325 oral tablet 1 tab, Route: PO, Drug Form: TAB, Dosing Weight 92.227, kg, Q6H, PRN Pain Score 4-6, Start date: 03/04/19 22:13:00 CDT, Duration: 30 day, Stop date: 04/03/19 22 :12:00 CDT Notes: (Same as: [place] 325/5) Do not exceed 4gm/day of acetaminophen. Start Date: 03/04/19 Stop Date: 03/07/19 Status: Discontinuedpantoprazole 40 mg oral enteric coated tablet 40 mg=1 tab, PO, Before Breakfast, # 30 tab, 0 Refill(s), Pharmacy: [facility] [id number] Start Date: 03/07/19 Stop Date: 04/06/19 Status: Orderedprasugrel 10 mg, 1 tab, Route: PO, Drug form: TAB, Daily, Dosing Weight 92.227, kg, Start date: 03/05/19 9:00:00 CDT, Duration: 30 day, Stop date: 04/03/19 9:00:00 CDT Notes: Same as Effient For patients < 75 years old, > 60kg, without history of TIA/Ischemic stroke and without likely bypass surgery Start Date: 03/05/19 Stop Date: 03/07/19 Status: DiscontinuedpredniSONE 20 mg oral tablet 60 mg=3 tab, PO, Daily, Take 3 tablets for 60 mg dose, X 4 day, # 12 tab, 0 Refill(s), Pharmacy: [facility] [id number] Start Date: 03/07/19 Stop Date: 03/11/19 Status: OrderedProtonix 40 mg, 1 tab, Route: PO, Drug form: ECTAB, Before Breakfast, Dosing Weight 92.227, kg, Start date: 03/07/19 7:30:00 CDT, Duration: 30 day, Stop date: 04/05 7:30:00 CDT Notes: Tablet should not be chewed or crushed.(Same as: Protonix) Start Date: 03/07/19 Stop Date: 03/07/19 Status: DiscontinuedSolu-MEDROL 40 mg, 1 mL, Route: IVP, Drug form: INJ, Q12H, Dosing Weight 92.227, kg, Start date: 03/06/19 21:00:00 CDT, Duration: 30 day, Stop date: 04/05/19 9:00:00 CDT Notes: (Same as:Solu-MEDROL, A-Methapred) Start Date: 03/06/19 Stop Date: 03/07/19 Status: Discontinuedtamsulosin 0.4 mg, 1 cap, Route: PO, Drug form: CAP, Bedtime, Dosing Weight 92.227, kg, Start date: 03/05/19 21:00:00 CDT, Duration: 30 day, Stop date: 04/03/19 21:00: 00 CDT Notes: (Same As: Flomax) "Do Not Crush" Start Date: 03/05/19 Stop Date: 03/07/19 Status: Discontinuedtizanidine 2 mg, 0.5 tab, Route: PO, Drug form: TAB, Q8H, Dosing Weight 92.227, kg, PRN Muscle Spasms, Start date: 03/04/19 22:42:00 CDT, Duration: 30 day, Stop date: 04/03/19 22:41:00 CDT Notes: (Same As: Zanaflex) Start Date: 03/04/19 Stop Date: 03/07/19 Status: Discontinuedtizanidine 2 mg oral capsule 2 mg=1 cap, PO, Q8H, PRN for muscle spasms, # 90 cap, 0 Refill(s) Start Date: 03/04/19 Status: Orderedtramadol 50 mg oral tablet 50 mg, 1 tab, Route: PO, Drug form: TAB, Q8H, Dosing Weight 92.227, kg, PRN Pain Score 6-10, Start date: 03/04/19 22:42:00 CDT, Duration: 30 day, Stop date : 04/03/19 22:41:00 CDT Notes: Not to exceed 400mg/day. (Same As: Ultram) Start Date: 03/04/19 Stop Date: 03/07/19 Status: Discontinuedtramadol 50 mg oral tablet 50 mg=1 tab, PO, Q8H, PRN Pain Score 6-10, 0 Refill(s) Start Date: 03/04/19 Status: OrderedTylenol with Codeine #3 oral tablet 1 tab, PO, Q8H, PRN Pain Score 6-10, 0 Refill(s) Start Date: 03/04/19 Stop Date: 03/07/19 Status: DiscontinuedTylenol with Codeine #3 oral tablet 1 tab, PO, Q8H, PRN Pain Score 6-10, X 7 day, # 28 tab, 0 Refill(s) Start Date: 03/07/19 Stop Date: 03/14/19 Status: Orderedvancomycin + Sodium Chloride 0.9% IV 100 mL 500 mg, Route: IVPB, Q-M-W-F, Start date: 03/05/19 17:00:00 CDT, Stop date: 17:00:00 CDT, ABX Indication: Skin/Soft Tissue Infection Notes: TIME CRITICAL MEDICATION(Same As: Vancocin)For adult patients only: Round to nearest 250 mg per Medical Staff approval Start Date: 03/05/19 Stop Date: 03/06/19 Status: DiscontinuedVancomycin Pharmacy Dosing 1 ea, Route: MISC, ONCALL, Dosing Weight 92.227, kg, Start date: 03/04/19 22:00: 00 CDT, Duration: 10day, Stop date: 03/14/19 21:59:00 CDT, Pharmacy to dose, ABX Indication: Skin/Soft Tissue Infection Start Date: 03/04/19 Stop Date: 03/04/19 Status: DeletedVelphoro 2500 mg (500 mg elemental iron) oral tablet, chewable 500 mg=1 tab, CHEW, TID-Meals, 0 Refill(s) Start Date: 03/04/19 Status: OrderedVeltassa 8.4 gm, Route: PO, Drug form: PDR/REC, Daily, Dosing Weight 92.227, kg, Start date: 03/05/19 9:00:00CDT, Duration: 30 day, Stop date: 04/03/19 9:00:00 CDT Start Date: 03/05/19 Stop Date: 03/07/19 Status: DiscontinuedVeltassa 8.4 g oral powder for reconstitution 8.4 gm, PO, Daily, 0 Refill(s) Start Date: 03/04/19 Status: OrderedZofran 4 mg, 2 mL, Route: IVP, Drug form: INJ, Q8H, Dosing Weight 92.227, kg, PRN Nausea, Start date: 03/04/19 22:13:00 CDT, Duration: 30 day, Stop date: 22:12:00 CDT Notes: (Same as: Zofran) MEDICATION WASTE Product Size: 4 mgProduct Wasted: ___ mg Start Date: 03/04/19 Stop Date: 03/07/19 Status: Discontinuedzolpidem 5 mg, 1 tab, Route: PO, Drug form: TAB, Bedtime, PRN Insomnia, Start date: 03/04 23:03:00 CDT, Duration: 30 day, Stop date: 04/03/19 23:02:00 CDT Notes: (Same As: Cheryl) Start Date: 03/04/19 Stop Date: 03/07/19 Status: Discontinuedzolpidem 10 mg oral tablet 10 mg=1 tab, PO, Bedtime, PRN as needed for insomnia, X 30 day, # 30 tab, 0 Refill(s) Start Date: 03/07/19 Stop Date: 04/06/19 Status: Orderedzolpidem 10 mg oral tablet 10 mg=1 tab, PO, Bedtime, PRN as needed for insomnia, 0 Refill(s) Start Date: 03/04/19 Stop Date: 03/07/19 Status: Discontinued Results Most recent to oldest [Reference Range]: 1 2 Neutrophils # [1.5-8.1 K/CMM] 3.7 K/CMM 3.3 K/CMM (03/06/19 1:38 PM) (03/04/19 10:51 PM) Lymphocytes # [1.0-5.5 K/CMM] 0.8 K/CMM 1.0 K/CMM *LOW* (03/04/19 10:51 PM) (03/06/19 1:38 PM) Monocytes # [0.0-0.8 K/CMM] 0.5 K/CMM 0.6 K/CMM (03/06/19 1:38 PM) (03/04/19 10:51 PM) Eosinophils # [0.0-0.5 K/CMM] 0.3 K/CMM 0.3 K/CMM (03/06/19 1:38 PM) (03/04/19 10:51 PM) Basophils # [0.0-0.2 K/CMM] 0.1 K/CMM 0.1 K/CMM (03/06/19 1:38 PM) (03/04/19 10:51 PM) Cyc Cit Pep Ab [<=2.9 unit/mL] <0.5 unit/mL (03/06/19 3:06 PM) eGFR 13 mL/min/1.73m2 1 4 mL/min/1.73m2 2 *NA* *NA* (03/06/19 1:38 PM) (03/04/19 10:51 PM) A/G Ratio [0.7-1.6] 0.7 (03/04/19 10:51 PM) Albumin Lvl [3.5-5.0 g/dL] 2.5 g/dL *LOW* (03/04/19 10:51 PM) Alk Phos [39-136 unit/L] 303 unit/L *HI* (03/04/19 10:51 PM) ALT [0-65 unit/L] 15 unit/L (03/04/19 10:51 PM) AGAP [10.0-20.0 mEq/L] 15.7 mEq/L 14.3 mEq/L (03/06/19 1:38 PM) (03/04/19 10:51 PM) AST [0-37 unit/L] 19 unit/L (03/04/19 10:51 PM) B/C Ratio [6-25] 4 *LOW* (03/04/19 10:51 PM) Basophils [0.0-1.0 %] 1.9 % 2.3 % *HI* *HI* (03/06/19 1:38 PM) (03/04/19 10:51 PM) BUN [7-22 mg/dL] 15 mg/dL 55 mg/dL (03/06/19 1:38 PM) *HI* (03/04/19 10:51 PM) Calcium Lvl [8.5-10.5 mg/dL] 8.5 mg/dL 7.6 mg/dL (03/06/19 1:38 PM) *LOW* (03/04/19 10:51 PM) Chloride Lvl [95-109 mEq/L] 102 mEq/L 100 mEq/L (03/06/19 1:38 PM) (03/04/19 10:51 PM) CO2 [24-32 mEq/L] 24 mEq/L 25 mEq/L (03/06/19 1:38 PM) (03/04/19 10:51 PM) Creatinine Lvl [0.50-1.40 mg/dL] 4.69 mg/dL 12.60 mg/dL *HI* *HI* (03/06/19 1:38 PM) (03/04/19 10:51 PM) CRP [<=2.9 mg/L] 138.0 mg/L 202.0 mg/L *HI* *HI* (03/06/19 3:06 PM) (03/04/19 10:51 PM) Eosinophils [0.0-4.0 %] 4.9 % 5.4 % *HI* *HI* (03/06/19 1:38 PM) (03/04/19 10:51 PM) Globulin [2.7-4.2 g/dL] 3.5 g/dL (03/04/19 10:51 PM) Glucose Lvl [70-99 mg/dL] 162 mg/dL 157 mg/dL *HI* *HI* (03/06/19 1:38 PM) (03/04/19 10:51 PM) Hep Bs Ag [Negative] Negative *NA* (03/05/19 8:30 AM) Hct [42.0-54.0 %] 29.4 % 23.5 % *LOW* *LOW* (03/06/19 1:38 PM) (03/04/19 10:51 PM) Hgb [14.0-18.0 g/dL] 9.6 g/dL 7.8 g/dL *LOW* *LOW* (03/06/19 1:38 PM) (03/04/19 10:51 PM) INR [0.85-1.17] 0.99 (03/06/19 3:06 PM) Potassium Lvl [3.5-5.1 mEq/L] 4.7 mEq/L 4.3 mEq/L (03/06/19 1:38 PM) (03/04/19 10:51 PM) Lactic Acid Lvl [0.5-2.2 mMol/L] 0.8 mMol/L (03/04/19 10:51 PM) Lymphocytes [20.0-40.0 %] 15.8 % 18.1 % *LOW* *LOW* (03/06/19 1:38 PM) (03/04/19 10:51 PM) MCH [27.0-31.0 pg] 30.1 pg 29.8 pg (03/06/19 1:38 PM) (03/04/19 10:51 PM) MCHC [32.0-36.0 g/dL] 32.6 g/dL 33.1 g/dL (03/06/19 1:38 PM) (03/04/19 10:51 PM) MCV [80.0-94.0 fL] 92.2 fL 90.1 fL (03/06/19 1:38 PM) (03/04/19 10:51 PM) Monocytes [2.0-12.0 %] 8.7 % 11.0 % (03/06/19 1:38 PM) (03/04/19 10:51 PM) MPV [7.4-10.4 fL] 7.2 fL 7.6 fL *LOW* (03/04/19 10:51 PM) (03/06/19 1:38 PM) Sodium Lvl [135-145 mEq/L] 137 mEq/L 135 mEq/L (03/06/19 1:38 PM) (03/04/19 10:51 PM) Platelet [133-450 K/CMM] 351 K/CMM 295 K/CMM (03/06/19 1:38 PM) (03/04/19 10:51 PM) Segs [45.0-75.0 %] 68.7 % 63.2 % (03/06/19 1:38 PM) (03/04/19 10:51 PM) Total Protein [6.4-8.4 g/dL] 6.0 g/dL *LOW* (03/04/19 10:51 PM) PT [12.0-14.7 seconds] 12.9 seconds (03/06/19 3:06 PM) PTT [22.9-35.8 seconds] 43.3 seconds *HI* (03/06/19 3:06 PM) RBC [4.70-6.10 M/CMM] 3.19 M/CMM 2.61 M/CMM *LOW* *LOW* (03/06/19 1:38 PM) (03/04/19 10:51 PM) RDW [11.5-14.5 %] 15.4 % 15.6 % *HI* *HI* (03/06/19 1:38 PM) (03/04/19 10:51 PM) RF Qnt [0-20 IU/mL] <10 IU/mL (03/06/19 3:06 PM) Sed Rate [0-15 mm/hr] >100 mm/hr >100 mm/hr *HI* *ABN* (03/06/19 3:06 PM) (03/04/19 10:51 PM) Bili Total [0.2-1.3 mg/dL] 0.4 mg/dL (03/04/19 10:51 PM) Uric Acid [3.8-8.0 mg/dL] 2.1 mg/dL 8.1 mg/dL *LOW* *HI* (03/06/19 3:06 PM) (03/04/19 10:51 PM) WBC [3.7-10.4 K/CMM] 5.4 K/CMM 5.3 K/CMM (03/06/19 1:38 PM) (03/04/19 10:51 PM) 1Result Comment: The eGFR is calculated using the CKD-EPI formula. In most young , healthy individualsthe eGFR will be >90 mL/min/1.73m2. The eGFR declines with age. An eGFR of 60-89 may be normal insome populations, particularly the elderly, for whom the CKD-EPI formula has not been extensively validated. Use of the eGFR is not recommended in the following populations: Individuals with unstable creatinine concentrations, including patients and those with serious co-morbid conditions. Patients with extremes in muscle mass or diet. The data above are obtained from the [employer] ( [employer]) which additionally recommends that when the eGFR is used in patients with extremes of body mass index for purposesof drug dosing, the eGFR should be multiplied by the estimated BMI.2Result Comment: The eGFR is calculated using the CKD-EPI formula. In most young, healthy individualsthe eGFR will be >90 mL/min/1.73m2. The eGFR declines with age. An eGFR of 60-89 may be normal insome populations, particularly the elderly, for whom the CKD-EPI formula has not been extensively validated. Use of the eGFR is not recommended in the following populations: Individuals with unstable creatinine concentrations, including patients and those with serious co-morbid conditions. Patients with extremes in muscle mass or diet. The data above are obtained from the National Kidney Disease Education Program ( NKDEP) which additionally recommends that when the eGFR is used in patients with extremes of body mass index for purposesof drug dosing, the eGFR should be multiplied by the estimated BMI.Microbiology Reports TEST:C Synov w/GS STATUS:Order in Progress BODY SITE:Right Knee SOURCE:Aspirate COLLECTED DATE/TIME:03/07/19 2:50 PMPRELIMINARY REPORTNo Growth; Holding STAIN REPORTNo Wbc'S Or Organisms Seen Many RBC'sTEST:Culture: Anaerobic STATUS:Order in Progress BODY SITE:Right Knee SOURCE:Aspirate COLLECTED DATE/TIME:03/06/19 2:52 PMPRELIMINARY REPORTCulture In ProgressTEST:Culture: Wound/Abscess w/Gram Stain STATUS:Auth (Verified) BODY SITE:Right Arm SOURCE:Wound, Surgical COLLECTED DATE/TIME:03/05/19 1:40 AMFINAL REPORTFew Enterobacter cloacae Few Klebsiella pneumoniae ssp pneumoniae Few Pseudomonas aeruginosa Few Citrobacter koseri Growth In Subculture Broth Only : Staphylococcus Species, Not S. 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 Sexual Sexually active: No. Exercise 1 Employment/School Status: Employed. Work/School description: [place], [place] Alcohol Current, Type Wine. Frequency: 1-2 times per week.2 Smoking Status Former smoker; Type: Cigarettes; Exposure to Tobacco Smoke None ; Cigarette Smoking Last 365 Days No; Reg Smoking Cessation Counseling No; Other Tobacco Frequency Pt. quit in 2017.; entered on: 03/04/19 [id number] Assessment and Plan Extracted from: Title: History and Physical Author: Veena De La Rosa MD Date: 03/04/19 58-year-old male with history of ESRD, type 2 diabetes, hypertension, CAD status post stentswho presented to a freestanding ED in [place] complaining of swelling and purulent drainage coming from his right AV fistula. 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
--- OUTSIDE RECORDS SUMMARY | 2019-04-17 20:45 | XMS REPORT | Summary of Care ---
:1960 Author Organization [facility] Address [address] [place] [address]- Encounter HQ Gregoryr_brittney(FIN) [id number] Date(s): 01/31/19 - 01/31/19 [facility] [address] [place] [address]- [phone] Attending Physician: Juventino Obrien MD Referring Physician: Juventino Obrien MD Vital Signs No data available for this [...] Reactions, Alerts No Known Medication Allergies Medications gabapentin 300 mg oral capsule See Instructions, 1 cap PO after dialysis, # 30 cap, 2 Refill(s), Pharmacy: [facility] [id number] Start Date: 01/09/19 Stop Date: 01/16/19 Status: Completed Results No data available for this section [...] Frequency Pt. quit in 2017.; entered on: 01/29/19 1Occasionally Assessment and Plan No data available for this section
--- OUTSIDE RECORDS SUMMARY | 2019-04-17 20:45 | XMS REPORT | Summary of Care ---
:1960 Author Organization [facility] Address [address] [place], [place] [address]- Encounter HQ Kirsten(NELI) [id number] Date(s): 12/20/18 - 12/20/18 [facility] [address] [place] [address]- [phone] Discharge Disposition: Home or Self Care Attending Physician: Stephan Ruiz MD Referring Physician: Stephan Ruiz MD Vital Signs Most recent to oldest 1 2 3 [Reference Range]: Height 172.72 cm (12/11/18 12:09 PM) Temperature Oral [96.4-99.1 97.3 DegF 97.8 DegF DegF] (12/20/18 7:30 AM) (12/11/18 12:09 PM) Blood Pressure [90-140/60-90 133/57 mmHg 142/60 mmHg 123/66 mmHg mmHg] (12/20/18 10:00 AM) *HI* (12/20/18 9:30 AM) (12/20/18 9:45 AM) Respiratory Rate [14-20 13 BRMIN 14 BRMIN 16 BRMIN BRMIN] *LOW* (12/20/18 9:45 AM) (12/20/18 9:30 AM) (12/20/18 10:00 AM) Peripheral Pulse Rate [60-100 69 bpm bpm] (12/11/18 12:09 PM) Weight 90.966 kg (12/11/18 12:09 PM) Body Mass Index 30.49 m2 (12/11/18 12:09 PM) Problem List Condition Effective Dates Status Health Status Informant DM (diabetes mellitus)(Confirmed) Active SOB (shortness of breath) on Active exertion(Confirmed) ESRD (end stage renal disease) on Active dialysis(Confirmed) Heart failure(Confirmed) Resolved HTN (hypertension)(Confirmed) Active Heart attack(Confirmed) Resolved Sleep apnea(Confirmed) Active Allergies, Adverse Reactions, Alerts Substance Reaction Severity Status NKDA Active Medications acetaminophen-hydrocodone 325 mg-10 mg oral tablet 1 tab, Route: PO, Drug Form: TAB, Dosing Weight 90.966, kg, Q4H, PRN Pain Score 4-6, Start date: 12/20/18 9:09:00 CDT, Duration: 30 day, Stop date: 01/19/19 9: 08:00 CDT Notes: Do not exceed 4gm/day of acetaminophen. (Same as: [place] 325/10) Start Date: 12/20/18 Stop Date: 12/20/18 Status: Discontinuedacetaminophen-hydrocodone 325 mg-5 mg oral tablet 1 tab, Route: PO, Drug Form: TAB, Dosing Weight 90.966, kg, Q4H, PRN Pain Score 4-6, Start date: 12/20/18 9:09:00 CDT, Duration: 30 day, Stop date: 01/19/19 9: 08:00 CDT Notes: (Same as: [place] 325/5) Do not exceed 4gm/day of acetaminophen. Start Date: 12/20/18 Stop Date: 12/20/18 Status: DiscontinuedAcidophilus Daily, 0 Refill(s) Start Date: 12/11/18 Status: OrderedAncef + sterile water 20 mL 2 gm, Route: IV, PRE OP, Dosing Weight 90.966, kg, Start date: 12/11/18 13:00: 00 CDT, Duration: 1 day, Stop date: 12/12/18 12:59:00 CDT, ABX Indication: Surgical Prophylaxis Notes: (Same As: Randolph Dawn) MEDICATION WASTE Product Size: 1000 mgProduct Wasted: ___ mg Start Date: 12/11/18 Stop Date: 12/12/18 Status: CompletedANES acetaminophen 1,000 mg, Route: PO, Drug form: TAB, ONCE, Dosing Weight 90.966, kg, PRN Pain Score 1-3, Start date:12/20/18 9:13:00 CDT Start Date: 12/20/18 Stop Date: 12/20/18 Status: DiscontinuedANES diphenhydrAMINE 12.5 mg, Route: IVP, Drug form: INJ, Q6H, Dosing Weight 90.966, kg, PRN Itching , Start date: 12/20/18 9:13:00 CDT, Duration: 30 day, Stop date: 01/19/19 9:12: 00 CDT Start Date: 12/20/18 Stop Date: 12/20/18 Status: DiscontinuedANES fentaNYL 50 microgram, Route: IVP, Q5Min, Dosing Weight 90.966, kg, PRN Pain Score 7-10, Priority: Routine, Start date: 12/20/18 9:13:00 CDT, Duration: 2 doses or times , Stop date: Limited # of times Start Date: 12/20/18 Stop Date: 12/20/18 Status: DiscontinuedANES flumazenil 0.2 mg, Route: IVP, PRN, Dosing Weight 90.966, kg, PRN Benzodiazepine Reversal, Initial dose, Start date: 12/20/18 9:13:00 CDT, Duration: 30 day, Stop date: 9:12:00 CDT Start Date: 12/20/18 Stop Date: 12/20/18 Status: DiscontinuedANES hydrALAZINE 10 mg, Route: IVP, Q20Min, Dosing Weight 90.966, kg, PRN Elevated BP, Start date : 12/20/18 9:13:00 CDT, Duration: 2 doses or times, Stop date: Limited # of times Start Date: 12/20/18 Stop Date: 12/20/18 Status: DiscontinuedANES HYDROmorphone 0.5 mg, Route: IVP, Q5Min, Dosing Weight 90.966, kg, PRN Pain Score 7-10, Start date: 12/20/18 9:13:00 CDT, Duration: 4 doses or times, Stop date: Limited # of times Start Date: 12/20/18 Stop Date: 12/20/18 Status: DiscontinuedANES labetalol 10 mg, Route: IVP, Q5Min, Dosing Weight 90.966, kg, PRN Elevated BP, Start date : 12/20/18 9:13:00 CDT, Duration: 5 doses or times, Stop date: Limited # of times Start Date: 12/20/18 Stop Date: 12/20/18 Status: DiscontinuedANES meperidine 12.5 mg, Route: IVP, Q30Min, Dosing Weight 90.966, kg, PRN Other -See Comment, For shivering, Start date: 12/20/18 9:13:00 CDT, Duration: 2 doses or times, Stop date: Limited # of times Start Date: 12/20/18 Stop Date: 12/20/18 Status: DiscontinuedANES naloxone 0.4 mg, Route: IVP, Q2MIN, Dosing Weight 90.966, kg, PRN Narcotic Reversal, Start date: 12/20/18 9:13:00 CDT, Duration: 8 doses or times, Stop date: Limited # of times Start Date: 12/20/18 Stop Date: 12/20/18 Status: DiscontinuedANES ondansetron 4 mg, Route: IVP, ONCE, Dosing Weight 90.966, kg, PRN Nausea & Vomiting, Start date: 12/20/18 9:13:00 CDT Start Date: 12/20/18 Stop Date: 12/20/18 Status: DiscontinuedANES oxyCODONE 5 mg, Route: PO, Drug form: TAB, Q4H, Dosing Weight 90.966, kg, PRN Pain Score 4 -6, Start date: 12/20/18 9:13:00 CDT, Duration: 30 day, Stop date: 01/19/19 9:12 :00 CDT Start Date: 12/20/18 Stop Date: 12/20/18 Status: DiscontinuedANES oxyCODONE 10 mg, Route: PO, Drug form: TAB, Q4H, Dosing Weight 90.966, kg, PRN Pain Score 7-10, Start date: 12/20/18 9:13:00 CDT, Duration: 30 day, Stop date: 01/19/19 9: 12:00 CDT Start Date: 12/20/18 Stop Date: 12/20/18 Status: Discontinuedaspirin 81 mg tablet, enteric coated 81 mg=1 tab, PO, Daily, # 90 tab, 3 Refill(s) Start Date: 12/11/18 Status: OrderedAuryxia 420 mg, PO, 0 Refill(s) Start Date: 12/11/18 Status: Orderedbumetanide 2 mg oral tablet 2 mg=1 tab, PO, BID, 0 Refill(s) Start Date: 12/11/18 Status: Orderedcarvedilol 6.25 mg, PO, BID, 0 Refill(s) Start Date: 12/20/18 Status: OrderedLantus 100 units/mL 35 units, SUB-Q, Daily, 0 Refill(s) Start Date: 12/11/18 Status: OrderedLyrica 50 mg oral capsule 50 mg=1 cap, PO, BID, 0 Refill(s) Start Date: 12/11/18 Status: OrderedNIFEdipine 30 mg oral tablet, extended release 30 mg=1 tab, PO, Daily, 0 Refill(s) Start Date: 12/11/18 Status: Orderednitroglycerin 0.4 mg sublingual tablet 0.4 mg=1 tab, SL, Q5Min, 0 Refill(s) Start Date: 12/11/18 Status: Orderedprasugrel 10 mg, PO, Daily, 0 Refill(s) Start Date: 12/20/18 Status: OrderedRenvela 800 mg oral tablet 800 mg=1 tab, PO, 0 Refill(s) Start Date: 12/11/18 Status: OrderedSodium Chloride 0.9% IV 500 mL 500 mL, Rate: 25 ml/hr, Infuse over: 20 hr, Route: IV, Dosing Weight 90.966 kg, Total Volume: 500, Start date: 12/20/18 7:38:00 CDT, Duration: 1 day, Stop date : 12/21/18 7:37:00 CDT, 2.11, m2 Start Date: 12/20/18 Stop Date: 12/20/18 Status: Discontinuedtamsulosin 0.4 mg oral capsule 0.4 mg=1 cap, PO, Daily, # 30 cap, 0 Refill(s) Start Date: 12/20/18 Status: Orderedvancomycin + Sodium Chloride 0.9% IV 250 mL 1 gm, Route: IVPB, PRE OP, Dosing Weight 90.966, kg, Start date: 12/11/18 13:00: 00 CDT, Duration: 1 day, Stop date: 12/12/18 12:59:00 CDT, ABX Indication: Surgical Prophylaxis Notes: TIME CRITICAL MEDICATION(Same As: Vancocin)Infusion rate< 1000 mg: infuse over 1 [id number] - 1500 mg: infuse over 1.5 [id number] - 2000 mg: infuse over 2 hours> 2001 mg: infuse over 2.5 hoursFor adult patients only: Round to nearest 250 mg per Medical Staff approval MEDICATION WASTE Product Size: 1000 mgProduct Wasted: ___ mg Start Date: 12/11/18 Stop Date: 12/12/18 Status: CompletedVitamin B1 Daily, 0 Refill(s) Start Date: 12/11/18 Status: Orderedzolpidem 10 mg sublingual tablet 10 mg=1 tab, SL, Bedtime, PRN for sleep, 0 Refill(s) Start Date: 12/11/18 Stop Date: 12/25/18 Status: Ordered Results BLOOD BANK RESULTS Most recent to oldest [Reference Range]: 1 ABO/Rh O POS *Unknown* (12/11/18 12:35 PM) Antibody Scrn Negative (12/11/18 12:35 PM) ELECTROLYTES Most recent to oldest [Reference Range]: 1 Sodium Lvl [135-145 mEq/L] 140 mEq/L (12/11/18 12:35 PM) Potassium Lvl [3.5-5.1 mEq/L] 6.0 mEq/L *HI* (12/11/18 12:35 PM) Chloride Lvl [95-109 mEq/L] 105 mEq/L (12/11/18 12:35 PM) CO2 [24-32 mEq/L] 27 mEq/L (12/11/18 12:35 PM) AGAP [10.0-20.0 mEq/L] 14.0 mEq/L (12/11/18 12:35 PM) CHEM PANEL Most recent to oldest [Reference Range]: 1 Creatinine Lvl [0.50-1.40 mg/dL] 8.46 mg/dL *HI* (12/11/18 12:35 PM) eGFR 6 mL/min/1.73m2 1 *NA* (12/11/18 12:35 PM) BUN [7-22 mg/dL] 62 mg/dL *HI* (12/11/18 12:35 PM) Glucose Lvl [70-99 mg/dL] 62 mg/dL *LOW* (12/11/18 12:35 PM) Calcium Lvl [8.5-10.5 mg/dL] 8.1 mg/dL *LOW* (12/11/18 12:35 PM) 1Result Comment: The eGFR is calculated [...] eGFR should be multiplied by the estimated BMI.SPECIAL CHEMISTRY Most recent to oldest [Reference Range]: 1 Hgb A1C [<=5.6 %] 5.0 % (12/11/18 12:35 PM) HEMATOLOGY Most recent to oldest [Reference Range]: 1 WBC [3.7-10.4 K/CMM] 4.6 K/CMM (12/11/18 12:35 PM) RBC [4.70-6.10 M/CMM] 3.66 M/CMM *LOW* (12/11/18 12:35 PM) Hgb [14.0-18.0 g/dL] 11.0 g/dL *LOW* (12/11/18 12:35 PM) Hct [42.0-54.0 %] 34.1 % *LOW* (12/11/18 12:35 PM) MCV [80.0-94.0 fL] 93.1 fL (12/11/18 12:35 PM) MCH [27.0-31.0 pg] 30.1 pg (12/11/18 12:35 PM) MCHC [32.0-36.0 g/dL] 32.3 g/dL (12/11/18 12:35 PM) RDW [11.5-14.5 %] 16.9 % *HI* (12/11/18 12:35 PM) MPV [7.4-10.4 fL] 8.1 fL (3/19/19 12:35 PM) Platelet [133-450 K/CMM] 214 K/CMM (12/11/18 12:35 PM) Segs [45.0-75.0 %] 58.4 % (12/11/18 12:35 PM) Lymphocytes [20.0-40.0 %] 23.7 % (12/11/18 12:35 PM) Monocytes [2.0-12.0 %] 11.6 % (12/11/18 12:35 PM) Eosinophils [0.0-4.0 %] 4.4 % *HI* (12/11/18 12:35 PM) Basophils [0.0-1.0 %] 1.9 % *HI* (12/11/18 12:35 PM) Neutrophils # [1.5-8.1 K/CMM] 2.7 K/CMM (12/11/18 12:35 PM) Lymphocytes # [1.0-5.5 K/CMM] 1.1 K/CMM (12/11/18 12:35 PM) Monocytes # [0.0-0.8 K/CMM] 0.5 K/CMM (12/11/18 12:35 PM) Eosinophils # [0.0-0.5 K/CMM] 0.2 K/CMM (12/11/18 12:35 PM) Basophils # [0.0-0.2 K/CMM] 0.1 K/CMM (12/11/18 12:35 PM) PT [12.0-14.7 seconds] 13.4 seconds (12/11/18 12:35 PM) INR [0.85-1.17] 1.04 (12/11/18 12:35 PM) PTT [22.9-35.8 seconds] 42.9 seconds *HI* (12/11/18 12:35 PM) Immunizations No data available for this section Procedures Procedure Date Related Diagnosis Body Site Status Stent placement 10/26/18 Completed Stent placement 07/26/18 Completed Amputation of toe 11/23/05 Completed Social History Social History Type Response Substance Abuse Use: None. Alcohol Current, Type Wine.1 Smoking Status Former smoker; Type: Cigarettes; Exposure to Tobacco Smoke None ; Cigarette Smoking Last 365 Days No; Reg Smoking Cessation Counseling No; Other Tobacco Frequency Pt. quit in 2017.; entered on: 12/20/18 1Occasionally Assessment and Plan No data available for this section
--- OUTSIDE RECORDS SUMMARY | 2019-04-17 20:45 | XMS REPORT ---
:1960 [facility] Address [address] [place] [address] Dr. Hernandez [address] [place] [id number] Care Team Providers Name Role Phone Unavailable Unavailable Unavailable Problems This patient has no known problems. Allergies, Adverse Reactions, Alerts This patient has no known allergies or adverse reactions. Medications This patient has no known medications. Encounters Start End Encounter Admission Attending Care Care Encounter Date/Time Date/Time Type Type Clinicians Facility Department ID 2019-03-04 Inpatient [facility] [id number] 17:21:00 2019-02-21 2019-02-21 Outpatient [facility] 7501 11:31:00 11:31:00
--- OUTSIDE RECORDS SUMMARY | 2019-04-17 20:45 | XMS REPORT | Summary of Care ---
:1960 Author Organization [facility] Address [address] [place], [place] [address]- Encounter HQ Susie_brittney(FIN) [id number] Date(s): 02/21/19 - 02/21/19 [facility] [address] [place] [address]- Discharge Disposition: Home or Self Care Attending Physician: Stephan Ruiz MD Referring Physician: Stephan Ruiz MD Vital Signs Most recent to oldest 1 2 3 [Reference Range]: Height 172.72 cm (01/29/19 10:09 AM) Temperature Oral [96.4-99.1 97.5 DegF DegF] (01/29/19 10:39 AM) Blood Pressure [90-140/60-90 103/51 mmHg 98/52 mmHg 94/50 mmHg mmHg] (02/21/19 3:30 PM) (02/21/19 2:45 PM) (02/21/19 2:40 PM) Respiratory Rate [14-20 BRMIN] 16 BRMIN 16 BRMIN 13 BRMIN (02/21/19 3:30 PM) (02/21/19 2:45 PM) *LOW* (02/21/19 2:40 PM) Peripheral Pulse Rate [60-100 66 bpm bpm] (01/29/19 10:39 AM) Weight 90.682 kg (01/29/19 10:09 AM) Body Mass Index 30.4 m2 (01/29/19 10:09 AM) Problem List Condition Effective Dates Status Health Status Informant DM (diabetes mellitus)(Confirmed) Active SOB (shortness of breath) on Active exertion(Confirmed) ESRD (end stage renal disease) on Active dialysis(Confirmed) Hand pain(Confirmed) Active Heart failure(Confirmed) Resolved HTN (hypertension)(Confirmed) Active Heart attack(Confirmed) Resolved Paresthesia(Confirmed) Active Simple obesity(Confirmed) Active Sleep apnea(Confirmed) Active H/O sudden (Confirmed) Active Allergies, Adverse Reactions, Alerts No Known Medication Allergies Medications acetaminophen-hydrocodone 325 mg-10 mg oral tablet 1 tab, Route: PO, Drug Form: TAB, Dosing Weight 90.682, kg, Q4H, PRN Pain Score 4-6, Start date: 02/21/19 13:41:00 CDT, Duration: 30 day, Stop date: 03/23/19 13 :40:00 CDT Notes: Do not exceed 4gm/day of acetaminophen. (Same as: [place] 325/10) Start Date: 02/21/19 Stop Date: 02/21/19 Status: DiscontinuedAncef + sterile water 20 mL 2 gm, Route: IVP, PRE OP, Dosing Weight 90.682, kg, Start date: 01/29/19 11:00: 00 CDT, Duration: 1 day, Stop date: 01/30/19 10:59:00 CDT, ABX Indication: Surgical Prophylaxis Notes: (Same As: Randolph Dawn) MEDICATION WASTE Product Size: 1000 mgProduct Wasted: ___ mg Start Date: 01/29/19 Stop Date: 01/30/19 Status: CompletedANES acetaminophen 1,000 mg, 2 tab, Route: PO, Drug form: TAB, ONCE, Dosing Weight 90.682, kg, PRN Pain Score 1-3, Start date: 02/21/19 14:37:00 CDT Notes: Max acetaminophen 4000 mg/day (4 gm/day). (Same as: Tylenol Extra Strength) Start Date: 02/21/19 Stop Date: 02/21/19 Status: DiscontinuedANES diphenhydrAMINE 12.5 mg, 0.25 mL, Route: IVP, Drug form: INJ, Q6H, Dosing Weight 90.682, kg, PRN Itching, Start date: 02/21/19 14:37:00 CDT, Stop date: 02/22/19 0:00:00 CDT Notes: (Same as: Benadryl) Start Date: 02/21/19 Stop Date: 02/21/19 Status: DiscontinuedANES fentaNYL 50 microgram, 1 mL, Route: IVP, Drug form: INJ, Q5Min, Dosing Weight 90.682, kg , PRN Pain Score 7-10, Priority: Routine, Start date: 02/21/19 14:37:00 CDT, Duration: 2 doses or times, Stop date: 02/22/19 0:00:00 CDT Notes: (Same as: Sublimaze) Preservative free. Start Date: 02/21/19 Stop Date: 02/21/19 Status: DiscontinuedANES flumazenil 0.2 mg, 2 mL, Route: IVP, Drug form: INJ, PRN, Dosing Weight 90.682, kg, PRN Benzodiazepine Reversal, Initial dose, Start date: 02/21/19 14:37:00 CDT, Stop date: 02/22/19 0:00:00 CDT Notes: (Same as: Romazicon) Start Date: 02/21/19 Stop Date: 02/21/19 Status: DiscontinuedANES hydrALAZINE 10 mg, 0.5 mL, Route: IVP, Drug form: INJ, Q20Min, Dosing Weight 90.682, kg, PRN Elevated BP, Start date: 02/21/19 14:37:00 CDT, Duration: 2 doses or times, Stop date: 02/22/19 0:00:00 CDT Notes: (Same as: Apresoline)Push over 5 minutes Start Date: 02/21/19 Stop Date: 02/21/19 Status: DiscontinuedANES HYDROmorphone 0.5 mg, 0.5 mL, Route: IVP, Drug form: INJ, Q5Min, Dosing Weight 90.682, kg, PRN Pain Score 7-10, Start date: 02/21/19 14:37:00 CDT, Duration: 4 doses or times, Stop date: 02/22/19 0:00:00 CDT Notes: Same as: Dilaudid Start Date: 02/21/19 Stop Date: 02/21/19 Status: DiscontinuedANES labetalol 10 mg, 2 mL, Route: IVP, Drug form: INJ, Q5Min, Dosing Weight 90.682, kg, PRN Elevated BP, Start date: 02/21/19 14:37:00 CDT, Duration: 5 doses or times, Stop date: 02/22/19 0:00:00 CDT Start Date: 02/21/19 Stop Date: 02/21/19 Status: DiscontinuedANES meperidine 12.5 mg, 0.25 mL, Route: IVP, Drug form: INJ, Q30Min, Dosing Weight 90.682, kg, PRN Other -See Comment, For shivering, Start date: 02/21/19 14:37:00 CDT, Duration: 2 doses or times, Stop date: 190:00:00 CDT Notes: (Same As: Demerol) Start Date: 02/21/19 Stop Date: 02/21/19 Status: DiscontinuedANES naloxone 0.4 mg, 1 mL, Route: IVP, Drug form: INJ, Q2MIN, Dosing Weight 90.682, kg, PRN Narcotic Reversal, Start date: 02/21/19 14:37:00 CDT, Duration: 8 doses or times , Stop date: 02/22/19 0:00:00 CDT Notes: Same as Narcan Start Date: 02/21/19 Stop Date: 02/21/19 Status: DiscontinuedANES ondansetron 4 mg, 2 mL, Route: IVP, Drug form: INJ, ONCE, Dosing Weight 90.682, kg, PRN Nausea & Vomiting, Start date: 02/21/19 14:37:00 CDT Notes: (Same as: Ivett) MEDICATION WASTE Product Size: 4 mgProduct Wasted: ___ mg Start Date: 02/21/19 Stop Date: 02/21/19 Status: DiscontinuedANES oxyCODONE 5 mg, 1 tab, Route: PO, Drug form: TAB, Q4H, Dosing Weight 90.682, kg, PRN Pain Score 4-6, Start date: 02/21/19 14:37:00 CDT, Stop date: 02/22/19 0:00:00 CDT Notes: (Same as: Roxicodone) Start Date: 02/21/19 Stop Date: 02/21/19 Status: DiscontinuedANES oxyCODONE 10 mg, 2 tab, Route: PO, Drug form: TAB, Q4H, Dosing Weight 90.682, kg, PRN Pain Score 7-10, Start date: 02/21/19 14:37:00 CDT, Stop date: 02/22/19 0:00:00 CDT Notes: (Same as: Roxicodone) Start Date: 02/21/19 Stop Date: 02/21/19 Status: DiscontinuedBenadryl 25 mg, Route: IVP, ONCE, Dosing Weight 90.682, kg, PRN Itching, Start date: 14:28:00 CDT Start Date: 02/21/19 Stop Date: 02/21/19 Status: CompletedceFAZolin (ANES) Route: IV, Drug form: INJ, ONCE, Stop date: 02/21/19 12:42:00 CDT Start Date: 02/21/19 Stop Date: 02/21/19 Status: CompletedDextrose 50% Syringe 12.5 gm, 25 mL, Route: IVP, Drug Form: INJ, Dosing Weight 90.682, kg, ONCE, Start date: 02/21/19 11:30:00 CDT, Stop date: 02/21/19 11:30:00 CDT Start Date: 02/21/19 Stop Date: 02/21/19 Status: OrderedePHEDrine (ANES) Route: IV, Drug form: INJ, ONCE, Stop date: 02/21/19 13:23:00 CDT Start Date: 02/21/19 Stop Date: 02/21/19 Status: CompletedfentaNYL (ANES) Route: IV, Drug form: INJ, ONCE, Stop date: 02/21/19 13:07:00 CDT Start Date: 02/21/19 Stop Date: 02/21/19 Status: CompletedLantus 100 units/mL 36 unit, SUB-Q, Daily, 0 Refill(s) Start Date: 01/29/19 Status: Orderedlidocaine (ANES) Route: IV, Drug form: INJ, ONCE, Stop date: 02/21/19 13:07:00 CDT Start Date: 02/21/19 Stop Date: 02/21/19 Status: Completedmetoclopramide (ANES) Route: IV, Drug form: INJ, ONCE, Stop date: 02/21/19 13:07:00 CDT Start Date: 02/21/19 Stop Date: 02/21/19 Status: Completedmidazolam (ANES) Route: IV, Drug form: SOLN, ONCE, Stop date: 02/21/19 13:07:00 CDT Start Date: 02/21/19 Stop Date: 02/21/19 Status: Completedmorphine Sulfate 2 mg, 1 mL, Route: IVP, Drug form: SOLN, Q3H, Dosing Weight 90.682, kg, PRN Pain Score 1-3, Start date: 02/21/19 13:41:00 CDT, Duration: 30 day, Stop date: 03/23/19 13:40:00 CDT Start Date: 02/21/19 Stop Date: 02/21/19 Status: Discontinuedondansetron (ANES) Route: IV, Drug form: INJ, ONCE, Stop date: 02/21/19 12:42:00 CDT Start Date: 02/21/19 Stop Date: 02/21/19 Status: Completedphenylephrine (ANES) Route: IV, Drug form: INJ, ONCE, Stop date: 02/21/19 13:58:00 CDT Start Date: 02/21/19 Stop Date: 02/21/19 Status: Completedpropofol (ANES) Route: IV, Drug form: INJ, ONCE, Stop date: 02/21/19 13:07:00 CDT Start Date: 02/21/19 Stop Date: 02/21/19 Status: CompletedSodium Chloride 0.9% IV (ANES) 1000 mL Route: IV, Total Volume: 1,000, Start date: 02/21/19 11:52:00 CDT, Stop date: 12:52:00 CDT Start Date: 02/21/19 Stop Date: 02/21/19 Status: CompletedSodium Chloride 0.9% IV 1000 mL 1,000 mL, Rate: 25 ml/hr, Infuse over: 40 hr, Route: IV, Dosing Weight 90.682 kg , Total Volume: 1,000, Start date: 02/21/19 9:49:00 CDT, Duration: 30 day, Stop date: 03/23/19 9:48:00 CDT, 2.11, m2 Start Date: 02/21/19 Stop Date: 02/21/19 Status: Discontinuedvancomycin (ANES) 1000 mg Route: IV, Drug form: INJ, Start date: 02/21/19 12:10:00 CDT, Stop date: 13:10:00 CDT Start Date: 02/21/19 Stop Date: 02/21/19 Status: Completedvancomycin + Sodium Chloride 0.9% IV 250 mL 1 gm, Route: IVPB, Drug form: INJ, PRE OP, Dosing Weight 90.682, kg, Start date : 01/29/19 11:00:00 CDT, Duration: 1 day, Stop date: 01/30/19 10:59:00 CDT, ABX Indication: Surgical Prophylaxis Notes: TIME CRITICAL MEDICATION(Same As: Vancocin)Infusion rate< 1000 mg: infuse over 1 [id number] - 1500 mg: infuse over 1.5 [id number] - 2000 mg: infuse over 2 hours> 2001 mg: infuse over 2.5 hoursFor adult patients only: Round to nearest 250 mg per Medical Staff approval MEDICATION WASTE Product Size: 1000 mgProduct Wasted: ___ mg Start Date: 01/29/19 Stop Date: 01/30/19 Status: Completed Results Most recent to oldest 1 2 3 [Reference Range]: Neutrophils # [1.5-8.1 3.6 K/CMM K/CMM] (01/29/19 10:27 AM) Lymphocytes # [1.0-5.5 0.8 K/CMM K/CMM] *LOW* (01/29/19 10:27 AM) Monocytes # [0.0-0.8 K/CMM] 0.6 K/CMM (01/29/19 10:27 AM) Eosinophils # [0.0-0.5 0.3 K/CMM K/CMM] (01/29/19 10:27 AM) Basophils # [0.0-0.2 K/CMM] 0.1 K/CMM (01/29/19 10:27 AM) eGFR 7 mL/min/1.73m2 1 6 mL/min/1.73m2 2 *NA* *NA* (02/21/19 9:18 AM) (01/29/19 10:27 AM) ABO/Rh O POS O POS *Unknown* *Unknown* (02/21/19 10:03 AM) (01/29/19 10:27 AM) Antibody Scrn Negative Negative (02/21/19 10:03 AM) (01/29/19 10:27 AM) AGAP [10.0-20.0 mEq/L] 14.2 mEq/L 13.3 mEq/L (02/21/19 9:18 AM) (01/29/19 10:27 AM) Basophils [0.0-1.0 %] 1.5 % *HI* (01/29/19 10:27 AM) BUN [7-22 mg/dL] 35 mg/dL 45 mg/dL *HI* *HI* (02/21/19 9:18 AM) (01/29/19 10:27 AM) Calcium Lvl [8.5-10.5 mg/dL] 8.4 mg/dL 8.2 mg/dL *LOW* *LOW* (02/21/19 9:18 AM) (01/29/19 10:27 AM) Chloride Lvl [95-109 mEq/L] 104 mEq/L 104 mEq/L (02/21/19 9:18 AM) (01/29/19 10:27 AM) CO2 [24-32 mEq/L] 26 mEq/L 27 mEq/L (02/21/19 9:18 AM) (01/29/19 10:27 AM) Creatinine Lvl [0.50-1.40 7.88 mg/dL 8.24 mg/dL mg/dL] *HI* *HI* (02/21/19 9:18 AM) (01/29/19 10:27 AM) Eosinophils [0.0-4.0 %] 5.5 % *HI* (01/29/19 10:27 AM) Glucose Lvl [70-99 mg/dL] 75 mg/dL 113 mg/dL (02/21/19 9:18 AM) *HI* (01/29/19 10:27 AM) Hct [42.0-54.0 %] 33.0 % 35.1 % *LOW* *LOW* (02/21/19 1:20 PM) (01/29/19 10:27 AM) Hgb [14.0-18.0 g/dL] 10.8 g/dL 11.8 g/dL *LOW* *LOW* (02/21/19 1:20 PM) (01/29/19 10:27 AM) INR [0.85-1.17] 1.00 (01/29/19 10: AM) Potassium Lvl [3.5-5.1 4.3 mEq/L 4.2 mEq/L 4.3 mEq/L mEq/L] (02/21/19 10:03 AM) (02/21/19 9:18 AM) (01/29/19 10:27 AM) Lymphocytes [20.0-40.0 %] 15.4 % *LOW* (01/29/19 10: AM) MCH [27.0-31.0 pg] 29.8 pg 30.3 pg (02/21/19 1:20 PM) (01/29/19 10:27 AM) MCHC [32.0-36.0 g/dL] 32.9 g/dL 33.6 g/dL (02/21/19 1:20 PM) (01/29/19 10:27 AM) MCV [80.0-94.0 fL] 90.5 fL 90.1 fL (02/21/19 1:20 PM) (01/29/19 10:27 AM) Monocytes [2.0-12.0 %] 11.3 % (01/29/19 10:27 AM) MPV [7.4-10.4 fL] 7.8 fL 7.5 fL (02/21/19 1:20 PM) (01/29/19 10:27 AM) Sodium Lvl [135-145 mEq/L] 140 mEq/L 140 mEq/L (02/21/19 9:18 AM) (01/29/19 10:27 AM) Platelet [133-450 K/CMM] 224 K/CMM 243 K/CMM (02/21/19 1:20 PM) (01/29/19 10:27 AM) Segs [45.0-75.0 %] 66.3 % (01/29/19 10:27 AM) PT [12.0-14.7 seconds] 13.0 seconds (01/29/19 10:27 AM) PTT [22.9-35.8 seconds] 43.7 seconds *HI* (01/29/19 10:27 AM) RBC [4.70-6.10 M/CMM] 3.64 M/CMM 3.90 M/CMM *LOW* *LOW* (02/21/19 1:20 PM) (01/29/19 10:27 AM) RDW [11.5-14.5 %] 14.6 % 14.6 % *HI* *HI* (02/21/19 1:20 PM) (01/29/19 10:27 AM) WBC [3.7-10.4 K/CMM] 6.0 K/CMM 5.4 K/CMM (02/21/19 1:20 PM) (01/29/19 10:27 AM) 1Result Comment: The eGFR is calculated using [...] should be multiplied by the estimated BMI. 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 Employment/School Status: Employed. Work/School description: [employer]. Alcohol Current, Type Wine.1 Smoking Status Former smoker; Type: Cigarettes; Exposure to Tobacco Smoke None ; Cigarette Smoking Last 365 Days No; Reg Smoking Cessation Counseling No; Other Tobacco Frequency Pt. quit in 2016.; entered on: 02/21/19 1Occasionally Assessment and Plan No data available for this section
[2019-04-17 21:41] LABS: Absolute Lymphocytes (CBC) 1.4 K/uL (0.7-4.9); Hematocrit 30.7 % (39.6-49.0); Lymphocytes % 22.6 % (15.3-44.8); MPV 7.6 fL (7.6-11.3); RBC Red Blood Cell Count 3.33 M/uL (4.33-5.43)
[2019-04-17 21:58] LABS: Potassium 3.5 mmol/L (3.5-5.1)
[2019-04-18] MEDS ORDERED: NA CHLORIDE 0.9% 250 ML ONE (00:05)
[2019-04-18] MEDS ORDERED: VANCOMYCIN 1 GM/VIAL ONE (00:05)
--- NOTE | 2019-04-18 01:17 | ER ---
Nurse's Notes [facility] Name: Wade Koehler Age: 58 yrs Sex: Male : 1960 Arrival Date: 04/17/2019 Time: 20:42 Bed 25 Private MD: Diagnosis: Open wound of ankle-Right lateral ankle Presentation: 04/17 20:45 Presenting complaint: Patient states: Wound to right outer ankle after wearing walking aj boot for 1 week. Transition of care: patient was not received from another setting of care. Onset of symptoms was April 10, 2019. Risk Assessment: Do you want to hurt yourself or someone else? Patient reports no desire to harm self or others. Initial Sepsis Screen: Does the patient meet any 2 criteria? No. Patient's initial sepsis screen is negative. Does the patient have a suspected source of infection? No. Patient's initial sepsis screen is negative. Care prior to arrival: None. 20:45 Method Of Arrival: Ambulatory 20:45 Acuity: [id number] 3 aj Triage Assessment: 20:46 General: Appears in no apparent distress. comfortable, Behavior is calm, cooperative, aj appropriate for age. Pain: Complains of pain in right ankle. Neuro: Level of Consciousness is awake, alert, obeys commands, Oriented to person, place, time, situation, Appropriate for age. Respiratory: Airway is patent Respiratory effort is even, unlabored, Respiratory pattern is regular, symmetrical. Derm: Skin is intact, is healthy with good turgor, Skin is pink, warm \T\ dry. normal. Derm: Wound noted right ankle. Historical: - Allergies: 20:46 NKA; aj - Home Meds: 04/18 00:28 Acidophilus 2 tabs daily Oral [Active]; aspirin 81 mg Oral TbEC 1 tab once daily mg2 [Active]; bumetanide 2 mg Oral tab 1 tab 2 times per day [Active]; carvedilol 6.25 mg Oral tab 1 tab daily [Active]; ferric citrate 20mg Oral [Active]; gabapentin 600 mg Oral tab 1 tab [Active]; Lantus 35 units Sub-Q daily [Active]; losartan 100 mg Oral tab 1 tab once daily [Active]; Lyrica 25 mg Oral 4 caps daily [Active]; nifedipine 30 mg Oral TbER 1 tab once daily [Active]; nitroglycerin 0.4 mg SL subl 1 tab [Active]; prasurgel 10 mg [Active]; tamsulosin 0.4 mg Oral cp24 1 cap once daily [Active]; vitamin b [Active]; zolpidem 10 mg Oral tab 1 tab once daily [Active]; - PMHx: 04/17 21:54 Diabetes - IDDM; Dialysis; at home seven days a week'; ESRD; Hypertension; PERIPHERAL mg2 NEUROPATHY; - Immunization history:: Adult Immunizations up to date. - Social history:: Smoking status: Patient/guardian denies using tobacco. - Ebola Screening: : Patient negative for fever greater than or equal to 101.5 degrees Fahrenheit, and additional compatible Ebola Virus Disease symptoms Patient denies exposure to infectious person Patient denies travel to an Ebola-affected area in the 21 days before illness onset No symptoms or risks identified at this time. Screenin:52 Abuse screen: Denies threats or abuse. Denies injuries from another. Abuse screen: mg2 Denies threats or abuse. Nutritional screening: No deficits noted. Tuberculosis screening: No symptoms or risk factors identified. Fall Risk Ambulatory Aid- None/Bed Rest/Nurse Assist (0 pts). Assessment: 21:49 General: Appears in no apparent distress. comfortable, Behavior is calm, cooperative. mg2 Pain: Complains of pain in right ankle Pain does not radiate. Pain currently is 5 out of 10 on a pain scale. Quality of pain is described as aching, Pain began gradually, Is intermittent. Neuro: Level of Consciousness is awake, alert, obeys commands, Oriented to person, place, time, situation. Cardiovascular: Capillary refill < 3 seconds Patient's skin is warm and dry. Respiratory: Airway is patent Respiratory effort is even, unlabored, Respiratory pattern is regular, symmetrical. GI: No signs and/or symptoms were reported involving the gastrointestinal system. : No signs and/or symptoms were reported regarding the genitourinary system. EENT: No signs and/or symptoms were reported regarding the EENT system. Derm: Wound noted right ankle Wound is diabetic foot. Musculoskeletal: Circulation, motion, and sensation intact. Capillary refill < 3 seconds. 04/18 01:47 Reassessment: Patient appears in no apparent distress at this time. Patient and/or wh family updated on plan of care and expected duration. Pain level reassessed. Patient is alert, oriented x 3, equal unlabored respirations, skin warm/dry/pink. Vital Signs: 04/17 20:46 BP 138 / 62; Pulse 73; Resp 19; Temp 97.6; Pulse Ox 96% on R/A; Weight 90.26 kg; Height aj 5 ft. 9 in. (175.26 cm); 21:48 BP 154 / 67; Pulse 68; Resp 18; Pulse Ox 100% on R/A; mg2 22:57 BP 154 / 98; Pulse 71; Resp 18; Pulse Ox 100% on R/A; mg2 04/18 00:00 BP 160 / 73; Pulse 74; Resp 18; Pulse Ox 100% on R/A; wh 04/17 20:46 Body Mass Index 29.39 (90.26 kg, 175.26 cm) aj ED Course: 04/17 20:42 Patient arrived in ED. ag3 20:46 Triage completed. aj 20:46 Arm band placed on right wrist. Patient placed in an exam room. aj 20:48 Scotty Patel PA is PHCP. cp 20:48 Scotty Concepcion MD is Attending Physician. cp 21:00 Mahamed Doe, JAYDE is Primary Nurse. mg2 21:13 Bed in low position. Call light in reach. Side rails up X 1. Side rails up X2. Warm jp3 blanket given. Pillow given. Verbal reassurance given. Pulse ox on. NIBP on. 21:14 Patient maintains SpO2 saturation greater than 95% on room air. jp3 21:43 XRAY Ankle RIGHT 3 view In Process Unspecified. EDMS 21:52 No provider procedures requiring assistance completed. Inserted saline lock: 20 gauge mg2 in left antecubital area, using aseptic technique. by JAYDE Tracey. 04/18 00:04 First set of blood cultures drawn by , Second set of blood cultures drawn. jp3 00:05 Blood Culture Adult (2) Sent. jp3 00:26 Wound care: to diabetic foot located on right ankle was cleaned with Hibiclens, mg2 irrigated with normal saline, dressed with Neosporin, 4X4s. 01:15 Bruno Lowery MD is Referral Physician. cp 01:48 IV discontinued, intact, bleeding controlled, No redness/swelling at site. Administered Medications: 00:11 Drug: vancoMYCIN 1 grams Route: IVPB; Infused Over: 2 hrs; Site: left antecubital; mg2 01:48 Follow up: Response: No adverse reaction; IV Status: Completed infusion 00:24 Not Given (Physician Discretion): Bacitracin Ointment (500 unit/g) 1 application mg2 Topical once 00:25 Drug: Neosporin Ointment 1 application {Note: right ankle.} Route: Topical; Site: wound;mg2 00:26 Follow up: Response: No adverse reaction mg2 01:48 Follow up: Response: No adverse reaction Outcome: 01:16 Discharge ordered by MD. sebas 01:47 Discharged to home ambulatory, with crutches, with family. 01:47 Condition: good 01:47 Discharge instructions given to patient, Instructed on discharge instructions, follow up and referral plans. medication usage, wound care, Demonstrated understanding of instructions, follow-up care, medications, wound care, Prescriptions given X 1. 01:50 Patient left the ED. Addendum: 04/21/2019 15:05 Addendum: Culture Results: Positive wound culture. Phone call Attempt #1 Will call in s s doxycycline 100 mg PO BID x 10 days. Per ARGELIA Castillo to [facility] choice ([facility] Signatures: Dispatcher [employer] Sigrid Mckinley RN RN aj Smirch, Shelby, RN RN ss Page, Corey, PA PA cp Habalo, Winsy Mahamed Doe RN RN mg2 [place] jp3 Niki Honeycutt ag3
--- NOTE | 2019-04-18 01:18 | EDPHYS ---
Physician Documentation [facility] Name: Wade Koehler Age: 58 yrs Sex: Male : 1960 Arrival Date: 04/17/2019 Time: 20:42 Bed 25 Private MD: ED Physician Scotty Concepcion HPI: 04/17 21:15 This 58 yrs old Male presents to ER via Ambulatory with complaints of Ankle cp Injury. 21:15 The patient presents with open wound. The complaints affect the lateral malleolus of cp right ankle. 21:15 Onset: The symptoms/episode began/occurred 4 day(s) ago. Associated signs and symptoms: cp Pertinent negatives: fever. Patient reports noticing open wound on right ankle 4 days ago. Wound cause by pressure from walking boot. Saw PCP today who prescribed Augmentin. Patient denies fever, chills, sweats. Historical: - Allergies: 20:46 NKA; aj - Home Meds: 04/18 00:28 Acidophilus 2 tabs daily Oral [Active]; aspirin 81 mg Oral TbEC 1 tab once daily mg2 [Active]; bumetanide 2 mg Oral tab 1 tab 2 times per day [Active]; carvedilol 6.25 mg Oral tab 1 tab daily [Active]; ferric citrate 20mg Oral [Active]; gabapentin 600 mg Oral tab 1 tab [Active]; Lantus 35 units Sub-Q daily [Active]; losartan 100 mg Oral tab 1 tab once daily [Active]; Lyrica 25 mg Oral 4 caps daily [Active]; nifedipine 30 mg Oral TbER 1 tab once daily [Active]; nitroglycerin 0.4 mg SL subl 1 tab [Active]; prasurgel 10 mg [Active]; tamsulosin 0.4 mg Oral cp24 1 cap once daily [Active]; vitamin b [Active]; zolpidem 10 mg Oral tab 1 tab once daily [Active]; - PMHx: 04/17 21:54 Diabetes - IDDM; Dialysis; at home seven days a week'; ESRD; Hypertension; PERIPHERAL mg2 NEUROPATHY; - Immunization history:: Adult Immunizations up to date. - Social history:: Smoking status: Patient/guardian denies using tobacco. - Ebola Screening: : Patient negative for fever greater than or equal to 101.5 degrees Fahrenheit, and additional compatible Ebola Virus Disease symptoms Patient denies exposure to infectious person Patient denies travel to an Ebola-affected area in the 21 days before illness onset No symptoms or risks identified at this time. ROS: 21:30 Constitutional: Negative for body aches, chills, fever, poor PO intake. cp 21:30 Cardiovascular: Negative for chest pain, edema. cp 21:30 Respiratory: Negative for cough, shortness of breath, wheezing. 21:30 Abdomen/GI: Negative for abdominal pain, nausea, vomiting, and diarrhea. 21:30 Skin: Positive for of the lateral malleolus right ankle, open wound. 21:30 Neuro: Negative for altered mental status, headache. 21:30 All other systems are negative. Exam: 21:35 Constitutional: The patient appears in no acute distress, alert, awake, cp non-diaphoretic, non-toxic, well developed, well nourished. 21:35 Head/Face: Normocephalic, atraumatic. cp 21:35 Eyes: Periorbital structures: appear normal, Conjunctiva: normal, Lids and lashes: appear normal, bilaterally. 21:35 ENT: External ear(s): are unremarkable, Nose: is normal, Mouth: is normal, Posterior pharynx: Airway: no evidence of obstruction, patent. 21:35 Chest/axilla: Inspection: normal. 21:35 Cardiovascular: Rate: normal. 21:35 Respiratory: the patient does not display signs of respiratory distress, Respirations: normal, no use of accessory muscles, no retractions, no splinting, no tachypnea. 21:35 Abdomen/GI: Inspection: abdomen appears normal. 21:35 Skin: cellulitis, that is minimal, on the lateral malleolus right ankle, mild swelling noted, minimal erythema, pressure ulcer lateral malleolus right ankle. Vital Signs: 20:46 BP 138 / 62; Pulse 73; Resp 19; Temp 97.6; Pulse Ox 96% on R/A; Weight 90.26 kg; Height aj 5 ft. 9 in. (175.26 cm); 21:48 BP 154 / 67; Pulse 68; Resp 18; Pulse Ox 100% on R/A; mg2 22:57 BP 154 / 98; Pulse 71; Resp 18; Pulse Ox 100% on R/A; mg2 0725 00:00 BP 160 / 73; Pulse 74; Resp 18; Pulse Ox 100% on R/A; 04/17 20:46 Body Mass Index 29.39 (90.26 kg, 175.26 cm) aj MDM: 04/17 20:48 Patient medically screened. 22:00 Differential diagnosis: cellulitis, abscess, osteomyelitis, sepsis. 04/18 01:15 Data reviewed: vital signs, nurses notes, lab test result(s), radiologic studies, plain cp films, I have discussed the patient's presentation/case with the attending Emergency Department Physician; and as a result, I will discharge patient. 01:15 Special discussion: need for f/u with general surgery and wound care. 04/17 21:15 Order name: CBC with Diff; Complete Time: 22:37 04/17 22:37 Interpretation: Normal except: RBC 3.33; HGB 10.2; HCT 30.7; RDW 16.4; MN% 13.4. 04/17 21:15 Order name: BMP; Complete Time: 22:37 04/17 21:11 Order name: XRAY Ankle RIGHT 3 view 04/17 21:15 Order name: Wound Culture 04/17 23:37 Order name: ESR; Complete Time: 00:17 04/18 00:17 Interpretation: Abnormal: SED 33. 04/17 23:37 Order name: Blood Culture Adult (2) 04/17 23:47 Order name: Wound dressing; Complete Time: 00:23 cp Administered Medications: 00:11 Drug: vancoMYCIN 1 grams Route: IVPB; Infused Over: 2 hrs; Site: left antecubital; mg2 01:48 Follow up: Response: No adverse reaction; IV Status: Completed infusion 00:24 Not Given (Physician Discretion): Bacitracin Ointment (500 unit/g) 1 application mg2 Topical once 00:25 Drug: Neosporin Ointment 1 application {Note: right ankle.} Route: Topical; Site: wound;mg2 00:26 Follow up: Response: No adverse reaction mg2 01:48 Follow up: Response: No adverse reaction Disposition: 02:00 Chart complete. Disposition: 04/18/19 01:16 Discharged to Home. Impression: Open wound of ankle - Right lateral ankle. - Condition is Stable. - Discharge Instructions: Wound Care. - Prescriptions for Bactroban 2 % Topical Ointment - Apply to affected area 1 application by TOPICAL route every 12 hours; 30 gram. - Medication Reconciliation Form, Thank You Letter, Antibiotic Education, Prescription Opioid Use form. - Follow up: Bruno Lowery MD; When: 1 - 2 days; Reason: Wound Recheck. - Problem is new. - Symptoms have improved. Addendum: 04/19/2019 07:12 Co-signature as Attending Physician, Scotty Concepcion MD I agree with the assessment and c barron plan of care. Signatures: Dispatcher [employer] Sigrid Mckinley, RN RN Scotty Pichardo MD MD cha Page, Corey, PA PA cp Grabiel, Alexy Mahamed Doe RN RN mg2 Corrections: (The following items were deleted from the chart) 04/18 01:50 01:16 04/18/2019 01:16 Discharged to Home. Impression: Open wound of ankle - Right wh lateral ankle. Condition is Stable. Forms are Medication Reconciliation Form, Thank You Letter, Antibiotic Education, Prescription Opioid Use. Follow up: Dr. Bruno Lowery; When: 1 - 2 days; Reason: Wound Recheck. Problem is new. Symptoms have improved. cp
[2019-04-18 02:04] VITALS: TEMP 97.6
[2019-04-18 02:06] VITALS: O2SAT 100
[2019-04-18 02:09] VITALS: BP 160/73
--- NOTE | 2019-04-18 08:54 | RAD REPORT ---
EXAM DESCRIPTION: RAD - Ankle Right 3 View - 04/17/2019 9:42 pm CLINICAL HISTORY: Pressure ulcer right lateral ankle;Pain COMPARISON: None. FINDINGS: 3 views of the right ankle. Destructive changes of the talar dome and anterior tibial plaf ond and with collapse of the medial aspect of the talar dome. No definite lytic osseous lesion. Edema in the subcutaneous soft tissues. Osteopenia. Plantar calcaneal spur. Atherosclerotic vascular calci fication. IMPRESSION: 1. Destructive change of the tibiotalar joint with collapse of the medial aspect of the talar dome possibly related to osteonecrosis. 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 2. No definite lytic osseous lesion identified however if there is concern for osteomyelitis MRI woul d provide additional characterization. Electronically signed by: Mathieu Ashford 04/17/2019 11:01 PM CDT Due to temporary technical issues with the PACS/Fluency reporting system, reports are being signed by the in house radiologist as a courtesy to ensure prompt reporting. The interpreting radiologist is f umbertoly responsible for the content of the report.
== END 2019-04-18 01:50 | disposition home or self-care (01) ==
LOC: ER 20:38
DX: S91.001A Unspecified open wound, right ankle, initial encounter (principal); E11.22 Type 2 diabetes mellitus with diabetic chronic kidney disease; I12.0 Hypertensive chronic kidney disease with stage 5 chronic kidney disease or end stage renal disease; N18.6 End stage renal disease; Z99.2 Dependence on renal dialysis; Z79.82 Long term (current) use of aspirin; Z79.4 Long term (current) use of insulin
CPT/HCPCS: 36415; 80048; 85025; 85652; 87040; 87070; 87077; 87186; 87205; 96365; 96366; 99285

== ENCOUNTER 2019-04-23 07:59 | Emergency (ER) | payer BC, OTHER ==
--- OUTSIDE RECORDS SUMMARY | 2019-04-23 08:06 | XMS REPORT | Continuity of Care Document ---
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 03/04/20 [facility] FISTULA 19 MALFUNCTION UNK Active 01/09/20 [facility] 19 N18.6 Active 11/24/19 [facility] 19 DM (Confirmed) Active Problem 03[facility]09[facility]2019 [facility] Active Problem 03/09/2019 [facility] ESRD on Active Problem 03/09/2019 [facility]) [facility] Heart failure Resolved Problem 03/09/2019 [facility] HTN (Confirmed) Active Problem 03/09/2019 [facility] Heart attack Resolved Problem 03/09/2019 [facility] Sleep apnea Active Problem 03/09/2019 [facility] Hand pain Active Problem 03/09/2019 [facility] Paresthesia Active Problem 03/09/2019 [facility] Simple obesity Active Problem 03/09/2019 [facility] H/O sudden Active Problem 03/09/2019 [facility] Unspecified 03/09/2019 [facility] complication of cardiac and vascular prosthetic device, implant and graft, initial encounter [facility] COMPL OF Active [facility] 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 MG / Codeine PRN Pain Score 2018 Phosphate 30 MG 6-10, X 7 day, Oral Tablet # 28 tab, 0 [Tylenol with Refill(s) Codeine #3] zolpidem 10 mg 10 mg=1 tab, Active 03/07[facility] oral tablet PO, Bedtime, 2018 PRN as needed for insomnia, X 30 day, # 30 tab, 0 Refill(s) predniSONE 20 mg 60 mg=3 tab, Active oral tablet PO, Daily, Take 2018 3 tablets for 60 mg dose, X 4 day, # 12 tab, 0 Refill(s), Pharmacy: [facility] [id number] pantoprazole 40 40 mg=1 tab, Active mg oral enteric PO, Before 2019 coated tablet Breakfast, # 30 tab, 0 Refill(s), Pharmacy: [facility] [id number] Colchicine 0.6 MG 0.6 mg=1 tab, Active Oral Tablet PO, BID, # 60 2019 tab, 0 Refill(s), Pharmacy: [facility] [id number] Levofloxacin 500 500 mg=1 tab, Active MG Oral Tablet PO, Q24H, X 10 2019 [Levaquin] day, # 10 tab, 0 Refill(s), Pharmacy: [facility] [id number] Protonix 40 mg, 1 tab, Inactive Route: PO, Drug 2018 [facility] form: ECTAB, Before Breakfast, Dosing Weight 92.227, kg, Start date: 03/07/19 7:30:00 CDT, Duration: 30 day, Stop date: 04/05/19 7:30:00 CDTNotes: Tablet should not be chewed or crushed. (Same as: Protonix) Solu-Medrol 40 mg, 1 mL, No Longer Route: IVP, [facility] 2018 [facility] Drug form: INJ, Q12H, Dosing Weight 92.227, kg, Start date: 03/06/19 21:00:00 CDT, Duration: 30 day, Stop date: 04/05/19 9:00:00 CDTNotes: (Same as:Solu-MEDROL, A-Methapred) Colchicine 0.6 mg, 1 tab, No Longer Route: PO, Drug Active 2018 [facility] form: TAB, BID, Dosing Weight 92.227, kg, Priority: NOW, Start date: 03/06/19 14:53:00 CDT, Duration: 30 day, Stop date: 04/05/19 9:00:00 CDT tamsulosin 0.4 mg, 1 cap, No Longer Route: PO, Drug Active 2018 [facility] form: CAP, Bedtime, Dosing Weight 92.227, kg, Start date: 03/05/19 21:00:00 CDT, Duration: 30 day, Stop date: 04/03/19 21:00:00 CDTNotes: (Same As: Flomax) "Do Not Crush" atorvastatin 10 mg, 1 tab, No Longer Route: PO, Drug Active 2018 [facility] form: TAB, Bedtime, Dosing Weight 92.227, kg, Start date: 03/05/19 21:00:00 CDT, Duration: 30 day, Stop date: 04/03/19 21:00:00 CDTNotes: (Same As: Lipitor) Epogen 10,000 unit, 1 No Longer mL, Route: Active 2018 [facility] SUB-Q, Drug form: INJ, Q-M-W-F, Dosing Weight 92.227, kg, Start date: 03/05/19 17:00:00 CDT, Stop date: 04/03/19 17:00:00 CDTNotes: (Same as: Procrit) epoetin olamide 56560 unit/1 ml VL. For dialysis use only. (Procrit) WASTE: F/P - Red; E -Red MEDICATION WASTE Product Size: 04941 unit Product Wasted: ___ unit vancomycin + 500 mg, Route: No Longer Sodium Chloride IVPB, Q-M-W-F, Active 2018 [facility] 0.9% IV 100 mL Start date: 03/05/19 17:00:00 CDT, Stop date: 03/13/19 17:00:00 CDT, ABX Indication: Skin/Soft Tissue InfectionNotes: TIME CRITICAL MEDICATION (Same As: Vancocin) For adult patients only: Round to nearest 250 mg per Medical Staff approval Lactulose 667 20 gm, 30 mL, No Longer MG/ML Oral Route: PO, Drug Active 2018 [facility] Solution form: SYRP, After Dinner, Dosing Weight 92.227, kg, Start date: 03/05/19 17:00:00 CDT, Duration: 30 day, Stop date: 04/03/19 17:00:00 CDTNotes: (Same as:Chronulac) Fluticasone 50 microgram, No Longer propionate 0.05 Route: NASAL, Active 2018 [facility] MG/ACTUAT Metered Drug Form: Dose Nasal [place] SPRY, Dosing [Flonase] Weight 92.227, kg, BID, Start date: 03/05/19 17:00:00 CDT, Duration: 30 day, Stop date: 04/04/19 9:00:00 CDTNotes: (Same as: Flonase) Fluticasone 1 spray, NASAL, Active propionate 0.05 BID, # 16 gm, 0 2018 [facility] MG/ACTUAT Metered Refill(s) Dose Nasal Morrison [Flonase] prasugrel 10 mg, 1 tab, No Longer Route: PO, Drug Active 2018 [facility] form: TAB, Daily, Dosing Weight 92.227, kg, Start date: 03/05/19 9:00:00 CDT, Duration: 30 day, Stop date: 04/03/19 9:00:00 CDTNotes: Same as Effient For patients 60kg, without history of TIA/Ischemic stroke and without likely bypass surgery Veltassa 8.4 gm, Route: No Longer PO, Drug form: Active 2018 [facility] PDR/REC, Daily, Dosing Weight 92.227, kg, Start date: 03/05/19 9:00:00 CDT, Duration: 30 day, Stop date: 04/03/19 9:00:00 CDT gabapentin 300 MG 300 mg, 1 cap, No Longer Oral Capsule Route: PO, Drug Active 2018 [facility] form: CAP, Daily, Dosing Weight 92.227, kg, Start date: 03/05/19 9:00:00 CDT, Duration: 30 day, Stop date: 04/03/19 9:00:00 CDTNotes: (Same as: Neurontin) Insulin Glargine 35 unit, 0.35 No Longer 100 UNT/ML mL, Route: Active 2018 [facility] Injectable SUB-Q, Drug Solution [Lantus] form: [...] No Longer Route: PO, Drug Active 2018 [facility] form: TAB, Q12H, Dosing Weight 92.227, kg, Start date: 03/05/19 9:00:00 CDT, Duration: 30 day, Stop date: 04/03/19 21:00:00 CDTNotes: Give with food. (Same As: Coreg) Aspirin 81 MG 81 mg, 1 tab, No Longer Enteric Coated Route: PO, Drug Active 2018 [facility] Tablet form: ECTAB, Daily, Dosing Weight 92.227, kg, Start date: 03/05/19 9:00:00 CDT, Duration: 30 day, Stop date: 04/03/19 9:00:00 CDTNotes: Do not crush or chew. (Same As: Ecotrin) Nephro-Dana Rx 1 tab, Route: No Longer PO, Drug Form: Active 2018 [facility] TAB, Dosing Weight 92.227, kg, Daily, Start date: 03/05/19 9:00:00 CDT, Duration: 30 day, Stop date: 04/03/19 9:00:00 CDTNotes: (Same as: Nephro-Dana Rx and Diatx) Give with food. Bumetanide 2 mg, 2 tab, No Longer Route: PO, Drug Active 2018 [facility] form: TAB, BID Diuretic, Dosing Weight 92.227, kg, Start date: 03/05/19 8:00:00 CDT, Duration: 30 day, Stop date: 04/03/19 16:00:00 CDTNotes: (Same As: Bumex) NIFEdipine 30 mg 30 mg, 1 tab, No Longer oral tablet, Route: PO, Drug Active 2018 [facility] extended release form: ERTAB, Before Breakfast, Dosing Weight 92.227, kg, Start date: 03/05/19 7:30:00 CDT, Duration: 30 day, Stop date: 04/03/19 7:30:00 CDTNotes: (Same as: Adalat CC, Procardia XL) Give on empty stomach. Take 1 hour before or 2 hours after meal; "Avoid grapefruit and grapefruit juice". Do not crush Benadryl 25 mg, 1 tab, No Longer Route: PO, Drug Active 2018 [facility] form: TAB, TID, Dosing Weight 92.227, [...] No Longer Route: PO, Drug Active 2018 [facility] form: TAB, Bedtime, PRN Insomnia, Start [...] No Longer Route: PO, Drug Active 2018 [facility] form: TAB, Q8H, Dosing Weight 92.227, kg, PRN Muscle Spasms, Start date: 03/04/19 22:42:00 CDT, Duration: 30 day, Stop date: 04/03/19 22:41:00 CDTNotes: (Same As: Zanaflex) Nitroglycerin 0.4 0.4 mg, 1 tab, No Longer MG Sublingual Route: SL, Drug Active 2018 [facility] Tablet form: TAB, Q5Min, Dosing Weight 92.227, kg, PRN Chest Pain, Start date: 03/04/19 22:42:00 CDT, Duration: 30 day, Stop date: 04/03/19 22:41:00 CDTNotes: (Same as:Nitroquick, Nitrostat) "Do Not Crush" Sublingual tablet Eszopiclone 3 mg, Route: Inactive PO, Drug form: 2018 [facility] TAB, Bedtime, Dosing Weight 92.227, kg, PRN Insomnia, Start date: 03/04/19 22:42:00 CDT, Duration: 30 day, Stop date: 04/03/19 22:41:00 CDT Albuterol 0.833 3 mL, Route: No Longer MG/ML / INHALATION, Active 2018 [facility] Ipratropium Drug Form: [place] 0.167 SOLN, Dosing MG/ML Inhalant Weight 92.227, Solution kg, RQ4H, PRN Shortness of breath, Start date: 03/04/19 22:42:00 CDT, Duration: 30 day, Stop date: 04/03/19 22:41:00 CDTNotes: (Same as: Dusandipb) Acetaminophen 325 1 tab, Route: No Longer MG / Hydrocodone PO, Drug Form: Active 2018 [facility] Bitartrate 5 MG TAB, Dosing Oral Tablet Weight 92.227, [[place] 5/325] kg, Q6H, PRN Pain Score 4-6, Start date: 03/04/19 22:13:00 CDT, Duration: 30 day, Stop date: 04/03/19 22:12:00 CDTNotes: (Same as: [place] 325/5) Do not exceed 4gm/day of acetaminophen. Zofran 4 mg, 2 mL, No Longer Route: IVP, Active 2018 [facility] Drug form: INJ, Q8H, Dosing Weight 92.227, kg, PRN Nausea, Start date: 03/04/19 22:13:00 CDT, Duration: 30 day, Stop date: 04/03/19 22:12:00 CDTNotes: (Same as: Zofran) MEDICATION WASTE Product Size: 4 mg Product Wasted: ___ mg Vancomycin 1 ea, Route: Inactive MISC, ONCALL, 2018 [facility] Dosing Weight 92.227, kg, Start date: 03/04/19 22:00:00 CDT, Duration: 10 day, Stop date: 03/14/19 21:59:00 CDT, Pharmacy to dose, ABX Indication: Skin/Soft Tissue Infection cefepime 1 gm, Route: No Longer IVPB, [id number], Active 2018 [facility] Dosing Weight 92.227, kg, (CrCl Notes: (Same As: Maxipime) MEDICATION WASTE Product Size: 1000 mg Product Wasted: ___ mg Calcium Chloride 125 mL, 75 Inactive 0.0014 MEQ/ML / ml/hr, Infuse 2018 [facility] Potassium Over: 1.7 hr, Chloride 0.004 Route: IV, 125, MEQ/ML / Sodium Drug form: Chloride 0.103 SOLN, ONCE, MEQ/ML / Sodium Dosing Weight Lactate 0.028 92.227 kg, MEQ/ML Injectable Start date: Solution 03/04/19 21:22:00 CDT, Stop date: 03/04/19 21:22:00 CDT Insulin Lispro 5 unit, 0.05 No Longer mL, Route: Active 2018 [facility] SUB-Q, Drug form: SOLN, TID-Before Meals, [...] No Longer IM, Drug form: Active 2018 [facility] PDR/INJ, PRN, Dosing Weight 92.227, kg, PRN Blood Glucose Results, Start date: 03/04/19 21:21:00 CDT, Duration: 30 day, Stop date: 04/03/19 21:20:00 CDT Dextrose 50% 25 gm, 50 mL, No Longer Syringe Route: IVP, Active 2018 [facility] Drug Form: INJ, Dosing Weight 92.227, kg, PRN, PRN Blood Glucose Results, Start date: 03/04/19 21:21:00 CDT, Duration: 30 day, Stop date: 04/03/19 21:20:00 CDT Acetaminophen 650 mg, 2 tab, No Longer Route: PO, Drug Active 2018 [facility] form: TAB, Q4H, Dosing Weight 92.227, kg, PRN Pain 1-3/Temp > 100.4 F, Start date: 03/04/19 21:21:00 CDT, Duration: 30 day, Stop date: 04/03/19 21:20:00 CDTNotes: Do not exceed 4 gm/day. (Same as: Tylenol) tizanidine 2 mg 2 mg=1 cap, PO, Active oral capsule Q8H, PRN for 2018 [facility] muscle spasms, # 90 cap, 0 Refill(s) zolpidem 10 mg 10 mg=1 tab, No Longer oral tablet PO, Bedtime, Active 2018 [facility] PRN as needed for insomnia, 0 Refill(s) eszopiclone 3 mg 3 mg=1 tab, PO, No Longer oral tablet Bedtime, PRN Active 2018 [facility] for insomnia, 0 Refill(s) Albuterol 0.833 3 mL, Active MG/ML / INHALATION, 2018 Ipratropium Q4H, PRN [place] 0.167 Wheezing, # 30 MG/ML Inhalant ea, 1 Refill(s) Solution NIFEdipine 30 mg 30 mg=1 tab, Active oral tablet, PO, Before 2018 [facility] extended release Breakfast, # 30 tab, 0 Refill(s) Acetaminophen 300 1 tab, PO, Q8H, No Longer MG / Codeine PRN Pain Score Active 2018 [facility] Phosphate 30 MG 6-10, 0 Oral Tablet Refill(s) [Tylenol with Codeine #3] patiromer 8400 MG 8.4 gm, PO, Active Powder for Oral Daily, 0 2018 [facility] Suspension Refill(s) [Veltassa] atorvastatin 10 10 mg=1 tab, Active mg oral tablet PO, Bedtime, # 2019 [facility] 90 tab, 0 Refill(s) Lactulose 667 20 gm=30 mL, Active MG/ML Oral PO, After 2019 [facility] Solution Dinner, 0 Refill(s) sucroferric 500 mg=1 tab, Active oxyhydroxide 500 CHEW, 2019 [facility] MG Chewable TID-Meals, 0 Tablet [Velphoro] Refill(s) Nitroglycerin 0.4 0.4 mg=1 tab, Active MG Sublingual SL, Q5Min, PRN 2018 [facility] Tablet Chest pain, Give up to 3 doses. Call 911 if pain persists., # 100 tab, 0 Refill(s) tramadol 50 mg=1 tab, Active hydrochloride 50 PO, Q8H, PRN 2018 [facility] MG Oral Tablet Pain Score 6-10, 0 Refill(s) Flumazenil 0.2 mg, 2 mL, Inactive Route: IVP2018 [facility] Drug form: INJ, PRN, Dosing Weight 90.682, kg, PRN Benzodiazepine Reversal, Initial dose, Start date: 02/21/19 14:37:00 CDT, Stop date: 02/22/19 0:00:00 CDTNotes: (Same as: Romazicon) Fentanyl 50 microgram, 1 Inactive mL, Route: IVP2018 [facility] Drug form: INJ, Q5Min, Dosing Weight 90.682, kg, PRN Pain Score 7-10, Priority: Routine, Start date: 02/21/19 14:37:00 CDT, Duration: 2 doses or times, Stop date: 02/22/19 0:00:00 CDTNotes: (Same as: Sublimaze) Preservative free. Hydromorphone 0.5 mg, 0.5 mL, Inactive Route: IVP2018 [facility] Drug form: INJ, Q5Min, Dosing Weight 90.682, kg, PRN Pain Score 7-10, Start date: 02/21/19 14:37:00 CDT, Duration: 4 doses or times, Stop date: 02/22/19 0:00:00 CDTNotes: Same as: Dilaudid Naloxone 0.4 mg, 1 mL, Inactive Route: IVP2018 [facility] Drug form: INJ, Q2MIN, Dosing Weight 90.682, kg, PRN Narcotic Reversal, Start date: 02/21/19 14:37:00 CDT, Duration: 8 doses or times, Stop date: 02/22/19 0:00:00 CDTNotes: Same as Narcan Oxycodone 5 mg, 1 tab, Inactive Route: PO, Drug 2018 [facility] form: TAB, Q4H, Dosing Weight 90.682, kg, PRN Pain Score 4-6, Start date: 02/21/19 14:37:00 CDT, Stop date: 02/22/19 0:00:00 CDTNotes: (Same as: Roxicodone) Acetaminophen 1,000 mg, 2 Inactive tab, Route: PO, 2018 [facility] Drug form: TAB, ONCE, Dosing Weight 90.682, kg, PRN Pain Score 1-3, Start date: 02/21/19 14:37:00 CDTNotes: Max acetaminophen 4000 mg/day (4 gm/day). (Same as: Tylenol Extra Strength) Labetalol 10 mg, 2 mL, Inactive Route: IVP2018 [facility] Drug form: INJ, Q5Min, Dosing Weight 90.682, kg, PRN Elevated BP, Start date: 02/21/19 14:37:00 CDT, Duration: 5 doses or times, Stop date: 02/22/19 0:00:00 CDT Hydralazine 10 mg, 0.5 mL, Inactive Route: IVP2018 [facility] Drug form: INJ, Q20Min, Dosing Weight 90.682, kg, PRN Elevated BP, Start date: 02/21/19 14:37:00 CDT, Duration: 2 doses or times, Stop date: 02/22/19 0:00:00 CDTNotes: (Same as: Apresoline) Push over 5 minutes Diphenhydramine 12.5 mg, 0.25 Inactive mL, Route: IVP2018 [facility] Drug form: INJ, Q6H, Dosing Weight 90.682, kg, PRN Itching, Start date: 02/21/19 14:37:00 CDT, Stop date: 02/22/19 0:00:00 CDTNotes: (Same as: Benadryl) Ondansetron 4 mg, 2 mL, Inactive Route: IVP, 2018 [facility] Drug form: INJ, ONCE, Dosing Weight 90.682, kg, PRN Nausea & Vomiting, Start date: 02/21/19 14:37:00 CDTNotes: (Same as: Zofran) MEDICATION WASTE Product Size: 4 mg Product Wasted: ___ mg Meperidine 12.5 mg, 0.25 Inactive mL, Route: IVP2018 [facility] Drug form: INJ, Q30Min, Dosing Weight 90.682, kg, PRN Other -See Comment, For shivering, Start date: 02/21/19 14:37:00 CDT, Duration: 2 doses or times, Stop date: 02/22/19 0:00:00 CDTNotes: (Same As: Demerol) Benadryl 25 mg, Route: Inactive IVP, ONCE, 2018 [facility] Dosing Weight 90.682, kg, PRN Itching, Start date: 02/21/19 14:28:00 CDT phenylephrine Route: IV, Drug Inactive (ANES) form: INJ, 2018 ONCE, Stop date: 02/21/19 13:58:00 CDT Acetaminophen 325 1 tab, Route: Inactive MG / Hydrocodone PO, Drug Form: 2018 [facility] Bitartrate 10 MG TAB, Dosing Oral Tablet Weight 90.682, kg, Q4H, PRN Pain Score 4-6, Start date: 02/21/19 13:41:00 CDT, Duration: 30 day, Stop date: 03/23/19 13:40:00 CDTNotes: Do not exceed 4gm/day of acetaminophen. (Same as: [place] 325/10) Morphine 2 mg, 1 mL, Inactive [...] Inactive MH 1000 mg form: INJ, 2018 [facility] Start date: 02/21/19 12:10:00 CDT, Stop date: 02/21/19 13:10:00 CDT Sodium Chloride Route: IV, Inactive 0.9% IV (ANES) Total Volume: 2018 [facility] 1000 mL 1,000, Start date: 02/21/19 11:52:00 CDT, Stop date: 02/21/19 12:52:00 CDT Dextrose 50% 12.5 gm, 25 mL, Inactive Syringe Route: IVP, 2018 [facility] Drug Form: INJ, Dosing Weight 90.682, kg, ONCE, Start date: 02/21/19 11:30:00 CDT, Stop date: 02/21/19 11:30:00 CDT Sodium Chloride 1,000 mL, Rate: Inactive 0.9% IV 1000 mL 25 ml/hr, 2018 [facility] Infuse over: 40 hr, Route: IV, Dosing Weight 90.682 kg, Total Volume: 1,000, Start date: 02/21/19 9:49:00 CDT, Duration: 30 day, Stop date: 03/23/19 9:48:00 CDT, 2.11, m2 Ancef + sterile 2 gm, Route: No Longer water 20 mL IVP, PRE OP, Active 2018 [facility] Dosing Weight 90.682, kg, Start date: 01/29/19 11:00:00 CDT, Duration: 1 day, Stop date: 01/30/19 10:59:00 CDT, ABX Indication: Surgical ProphylaxisNote s: (Same As: Ancef, Kefzol) MEDICATION WASTE Product Size: 1000 mg Product Wasted: ___ mg Vancomycin 1 gm, Route: No Longer IVPB, Drug Active 2018 [facility] form: INJ, PRE OP, Dosing Weight [...] SUB-Q, Active 100 UNT/ML Daily, 0 2019 [facility] Injectable Refill(s) Solution [Lantus] gabapentin 300 MG 300 mg=1 cap, Active 01/16/ [facility] Oral Capsule PO, Daily, # 30 2019 [facility] cap, 3 Refill(s), [facility] [id number] gabapentin 300 MG See No Longer 01/09/ [facility] Oral Capsule Instructions, 1 Active 2019 [facility] cap PO after dialysis, # 30 cap, 2 Refill(s), Pharmacy: [facility] [id number] Ondansetron 4 mg, Route: Inactive 12/20[facility] IVP, ONCE, 2019 [facility] Dosing Weight 90.966, kg, PRN Nausea & Vomiting, Start date: 12/20/18 9:13:00 CDT Meperidine 12.5 mg, Route: Inactive 12/20[facility] IVP, Q30Min, 2018 [facility] Dosing Weight 90.966, kg, PRN Other -See Comment, For shivering, Start date: 12/20/18 9:13:00 CDT, Duration: 2 doses or times, Stop date: Limited # of times Hydralazine 10 mg, Route: Inactive 12/20[facility] IVP, Q20Min, 2018 [facility] Dosing Weight 90.966, kg, PRN Elevated BP, Start date: 12/20/18 9:13:00 CDT, Duration: 2 doses or times, Stop date: Limited # of times Naloxone 0.4 mg, Route: Inactive IVP, Q2MIN, 2018 [facility] Dosing Weight 90.966, kg, PRN Narcotic Reversal, Start date: 12/20/18 9:13:00 CDT, Duration: 8 doses or times, Stop date: Limited # of times Diphenhydramine 12.5 mg, Route: Inactive IVP, Drug form: 2018 [facility] INJ, Q6H, Dosing Weight 90.966, kg, PRN Itching, Start date: 12/20/18 9:13:00 CDT, Duration: 30 day, Stop date: 01/19/19 9:12:00 CDT Oxycodone 5 mg, Route: Inactive PO, Drug form: 2018 [facility] TAB, Q4H, Dosing Weight 90.966, kg, PRN Pain Score 4-6, Start date: 12/20/18 9:13:00 CDT, Duration: 30 day, Stop date: 01/19/19 9:12:00 CDT Labetalol 10 mg, Route: Inactive IVP, Q5Min, 2018 [facility] Dosing Weight 90.966, kg, PRN Elevated BP, Start date: 12/20/18 9:13:00 CDT, Duration: 5 doses or times, Stop date: Limited # of times Acetaminophen 1,000 mg, Inactive Route: PO, Drug 2018 [facility] form: TAB, ONCE, Dosing Weight 90.966, kg, PRN Pain Score 1-3, Start date: 12/20/18 9:13:00 CDT Fentanyl 50 microgram, Inactive Route: IVP, 2018 [facility] Q5Min, Dosing Weight 90.966, kg, PRN Pain Score 7-10, Priority: Routine, Start date: 12/20/18 9:13:00 CDT, Duration: 2 doses or times, Stop date: Limited # of times Flumazenil 0.2 mg, Route: Inactive IVP, PRN, 2018 [facility] Dosing Weight 90.966, kg, PRN Benzodiazepine Reversal, Initial dose, Start date: 12/20/18 9:13:00 CDT, Duration: 30 day, Stop date: 01/19/19 9:12:00 CDT Hydromorphone 0.5 mg, Route: Inactive 12/20[facility] IVP, Q5Min, 2018 [facility] Dosing Weight 90.966, kg, PRN Pain Score 7-10, Start date: 12/20/18 9:13:00 CDT, Duration: 4 doses or times, Stop date: Limited # of times Acetaminophen 325 1 tab, Route: Inactive MG / Hydrocodone PO, Drug Form: 2018 [facility] Bitartrate 10 MG TAB, Dosing Oral Tablet Weight 90.966, kg, Q4H, PRN Pain Score 4-6, Start date: 12/20/18 9:09:00 CDT, Duration: 30 day, Stop date: 01/19/19 9:08:00 CDTNotes: Do not exceed 4gm/day of acetaminophen. (Same as: [place] 325/10) Acetaminophen 325 1 tab, Route: Inactive MG / Hydrocodone PO, Drug Form: 2018 [facility] Bitartrate 5 MG TAB, Dosing Oral Tablet Weight 90.966, kg, Q4H, PRN Pain Score 4-6, Start date: 12/20/18 9:09:00 CDT, Duration: 30 day, Stop date: 01/19/19 9:08:00 CDTNotes: (Same as: [place] 325/5) Do not exceed 4gm/day of acetaminophen. Sodium Chloride 500 mL, Rate: Inactive 0.9% IV 500 mL 25 ml/hr, 2018 [facility] Infuse over: 20 hr, Route: IV, Dosing Weight 90.966 kg, Total Volume: 500, Start date: 12/20/18 7:38:00 CDT, Duration: 1 day, Stop date: 12/21/18 7:37:00 CDT, 2.11, m2 prasugrel 10 mg, PO, Active Daily, 0 2018 [facility] Refill(s) tamsulosin 0.4 mg 0.4 mg=1 cap, Active oral capsule PO, Daily, # 30 2019 [facility] cap, 0 Refill(s) carvedilol 6.25 mg, PO, Active BID, 0 2018 [facility] Refill(s) Vancomycin 1 gm, Route: No Longer IVPB, PRE OP, Active 2018 [facility] Dosing Weight 90.966, kg, Start date: [...] 20 mL IV, PRE OP, Active 2018 [facility] Dosing Weight 90.966, kg, Start date: 12/11/18 13:00:00 CDT, Duration: 1 day, Stop date: 12/12/18 12:59:00 CDT, ABX Indication: Surgical ProphylaxisNote s: (Same As: [place] Dawn) MEDICATION WASTE Product Size: 1000 mg Product Wasted: ___ mg Vitamin B1 Daily, 0 Active Refill(s) 2018 [facility] bumetanide 2 mg 2 mg=1 tab, PO, Active oral tablet BID, 0 2018 [facility] Refill(s) Acidophilus Daily, 0 Active Refill(s) 2018 [facility] Aspirin 81 MG 81 mg=1 tab, Active Enteric Coated PO, Daily, # 90 2018 [facility] Tablet tab, 3 Refill(s) Nitroglycerin 0.4 0.4 mg=1 tab, Active MG Sublingual SL, Q5Min, 0 2018 [facility] Tablet Refill(s) zolpidem 10 mg 10 mg=1 tab, Active sublingual tablet SL, Bedtime, 2019 [facility] PRN for sleep, 0 Refill(s) Auryxia 420 mg, PO, 0 Active Refill(s) 2018 [facility] NIFEdipine 30 mg 30 mg=1 tab, Active oral tablet, PO, Daily, 0 2018 [facility] extended release Refill(s) sevelamer 800 mg=1 tab, Active carbonate 800 MG PO, 0 Refill(s) 2018 [facility] Oral Tablet [Renvela] pregabalin 50 MG 50 mg=1 cap, Active Oral Capsule PO, BID, 0 2018 [facility] [Lyrica] Refill(s) Insulin Glargine 35 units, Active 100 UNT/ML SUB-Q, Daily, 0 2018 [facility] Injectable Refill(s) Solution [Lantus] Allergies, Adverse Reactions, Alerts Substance Category Reaction Severity Reaction Status Date Comments Source type Reported No Known Assertion Drug Medication allergy [facility] Allergies Immunizations No Data Provided for This Section Results Order Name Results Value Reference Date Interpretation Comments Source Range Gram Stain No Wbc'S Or Organisms Seen 03/07 Report Many RBC's /2018 [facility] C Synov w/GS No Growth; 03/07 Holding /2018 [facility] CHEM PANEL Uric Acid 2.1 3.8 - 8.0 03/06 [facility] HEMATOLOGY INR 0.99 0.85 - 03/06 1.17 /2018 [facility] HEMATOLOGY PT 12.9 12.0 - 03/06 MH 14.7 /2019 [facility] HEMATOLOGY PTT 43.3 22.9 - 03/06 35.8 2019 [facility] HEMATOLOGY Sed Rate >100 0 - 15 03/06 [facility] IMMUNOLOGY Cyc Cit Pep <0.5 <=2.9 03/06 Ab unit/mL [facility] IMMUNOLOGY RF Qnt <10 0 - 20 03/06 [facility] IMMUNOLOGY C-REACTIVE 138.0 <=2.9 mg/L 03/06 PROTEIN /2019 [facility] Culture: Culture In 03/06 MH Anaerobic Progress [facility] CHEM PANEL eGFR 13 03/06 Result Comment: The [facility] eGFR is calculated using the CKD-EPI [...] 3.5 - 5.1 03/06 MH Lvl /2018 [facility] CHEM PANEL Chloride Lvl 102 95 - 109 03/06 [facility] CHEM PANEL Creatinine 4.69 0.50 - 03/06 Lvl 1.40 [facility] CHEM PANEL Sodium Lvl 137 135 - 145 03/06 [facility] CHEM PANEL Glucose Lvl 162 70 - 99 03/06 [facility] CHEM PANEL BUN 15 7 - 22 03/06 [facility] CHEM PANEL CO2 24 24 - 32 03/06 [facility] CHEM PANEL Calcium Lvl 8.5 8.5 - 10.5 03/06 [facility] CHEM PANEL AGAP 15.7 10.0 - 03/06 MH 20.0 /2019 [facility] HEMATOLOGY Eosinophils 0.3 0.0 - 0.5 / MH # /2019 [facility] HEMATOLOGY Basophils # 0.1 0.0 - 0.2 03/06 /2018 [facility] HEMATOLOGY Neutrophils 3.7 1.5 - 8.1 / MH # /2019 [facility] HEMATOLOGY Lymphocytes 0.8 1.0 - 5.5 / MH # /2019 [facility] HEMATOLOGY Monocytes # 0.5 0.0 - 0.8 03/06 /2018 [facility] HEMATOLOGY Lymphocytes 15.8 20.0 - 03/06 MH 40.0 /2018 [facility] HEMATOLOGY Segs 68.7 45.0 - 03/06 MH 75.0 /2018 [facility] HEMATOLOGY Basophils 1.9 0.0 - 1.0 03/06 /2018 [facility] HEMATOLOGY Eosinophils 4.9 0.0 - 4.0 03/06 /2018 [facility] HEMATOLOGY Monocytes 8.7 2.0 - 12.0 03/06 /2018 [facility] HEMATOLOGY RDW 15.4 11.5 - 03/06 14.5 /2018 [facility] HEMATOLOGY MCH 30.1 27.0 - 03/06 31.0 /2018 [facility] HEMATOLOGY Platelet 351 133 - 450 03/06 /2018 [facility] HEMATOLOGY Hgb 9.6 14.0 - 03/06 MH 18.0 /2018 [facility] HEMATOLOGY MCHC 32.6 32.0 - 03/06 36.0 /2018 [facility] HEMATOLOGY Hct 29.4 42.0 - 03/06 54.0 /2018 [facility] HEMATOLOGY MCV 92.2 80.0 - 03/06 94.0 /2018 [facility] HEMATOLOGY MPV 7.2 7.4 - 10.4 03/06 [facility] HEMATOLOGY RBC 3.19 4.70 - 03/06 MH 6.10 /2019 [facility] HEMATOLOGY WBC 5.4 3.7 - 10.4 03/06 [facility] IMMUNOLOGY Hep Bs Ag Negative Negative 03/05 *NA* /2018 [facility] (03/05/19 8:30 AM) GENTAMICIN Gram Stain Rare Gram Positive Cocci 03/05 MH :SUSC:PT:I Report Many WBC's /2018 [facility] SOLATE:ORD QN:EDDY GENTAMICIN Culture: Few Enterobacter cloacae 03/05 MH :SUSC:PT:I Wound/Absces Few Klebsiella pneumoniae ssp pneumoniae /2018 [facility] SOLATE:ORD s w/Gram Few Pseudomonas aeruginosa QN:EDDY Stain Few Citrobacter koseri Growth In Subculture Broth Only : Staphylococcus Species, Not S. aureus [facility] Citrobacter Citrobacte 03/05 MH :SUSC:PT:I koseri r koseri /2018 [facility] SOLATE:ORD QN:EDDY GENTAMICIN Pseudomonas Pseudomona 03/05 MH :SUSC:PT:I aeruginosa s [facility] SOLATE:ORD aeruginosa QN:EDDY GENTAMICIN Klebsiella Klebsiella 03/05 MH :SUSC:PT:I pneumoniae pneumoniae [facility] SOLATE:ORD ssp ssp QN:EDDY pneumoniae pneumoniae [facility]ICIN Enterobacter Enterobact 03/05 MH :SUSC:PT:I cloacae er cloacae [facility] SOLATE:ORD QN:EDDY CHEM PANEL Uric Acid 8.1 3.8 - 8.0 03/05 [facility] CHEM PANEL Lactic Acid 0.8 0.5 - 2.2 03/05 Lvl [facility] CHEM PANEL AST 19 0 - 37 03/05 [facility] CHEM PANEL Bili Total 0.4 0.2 - 1.3 03/05 [facility] CHEM PANEL eGFR 4 03/05 [facility] Comment: The [facility] eGFR is calculated using the CKD-EPI [...] PANEL ALT 15 0 - 65 03/05 [facility] CHEM PANEL Albumin Lvl 2.5 3.5 - 5.0 03/05 [facility] CHEM PANEL Total 6.0 6.4 - 8.4 03/05 Protein [facility] CHEM PANEL Alk Phos 303 39 [...] Globulin 3.5 2.7 - 4.2 03/05 /2018 [facility] CHEM PANEL A/G Ratio 0.7 0.7 - 1.6 03/05 [facility] HEMATOLOGY Basophils 2.3 0.0 - 1.0 03/05 [facility] HEMATOLOGY Neutrophils 3.3 1.5 - 8.1 03/05 MH # /2019 [facility] HEMATOLOGY Lymphocytes 1.0 1.0 - 5.5 03/05 MH # /2019 [facility] HEMATOLOGY Monocytes # 0.6 0.0 - 0.8 03/05 [facility] HEMATOLOGY Eosinophils 0.3 0.0 - 0.5 03/05 MH # /2019 [facility] HEMATOLOGY Segs 63.2 45.0 - 03/05 75.0 /2019 [facility] HEMATOLOGY Lymphocytes 18.1 20.0 - 03/05 40.0 2019 [facility] HEMATOLOGY Basophils # 0.1 0.0 - 0.2 03/05 [facility] HEMATOLOGY Monocytes 11.0 2.0 - 12.0 03/05 [facility] HEMATOLOGY Eosinophils 5.4 0.0 - 4.0 03/05 [facility] HEMATOLOGY MCH 29.8 27.0 - 03/05 31.0 [facility] HEMATOLOGY MCHC 33.1 32.0 - 03/05 36.0 /2018 [facility] HEMATOLOGY WBC 5.3 3.7 - 10.4 03/05 [facility] HEMATOLOGY RBC 2.61 4.70 - 03/05 MH 6.10 [facility] HEMATOLOGY Hgb 7.8 14.0 - 03/05 MH 18.0 [facility] HEMATOLOGY Hct 23.5 42.0 - 03/05 MH 54.0 [facility] HEMATOLOGY MCV 90.1 80.0 - 03/05 MH 94.0 [facility] HEMATOLOGY MPV 7.6 7.4 - 10.4 03/05 [facility] HEMATOLOGY Platelet 295 133 - 450 03/05 [facility] HEMATOLOGY RDW 15.6 11.5 - 03/05 MH 14. [facility] HEMATOLOGY Sed Rate >100 mm/hr 0 - 15 03/05 [facility] IMMUNOLOGY C-REACTIVE 202.0 <=2.9 mg/L 03/05 MH [facility] HEMATOLOGY WBC 6.0 3.7 - 10.4 02/21 [facility] HEMATOLOGY Hct 33.0 42.0 - 02/21 MH 54.0 [facility] HEMATOLOGY RBC 3.64 4.70 - 02/21 MH 6. [facility] HEMATOLOGY MCV 90.5 80.0 - 02/21 MH 94.0 [facility] HEMATOLOGY Hgb 10.8 14.0 - 02/21 MH 18.0 [facility] HEMATOLOGY RDW 14.6 11.5 - 02/21 MH 14. [facility] HEMATOLOGY Platelet 224 133 - 450 02/21 [facility] HEMATOLOGY MCHC 32.9 32.0 - 02/21 MH 36.0 [facility] HEMATOLOGY MCH 29.8 27.0 - 02/21 MH 31.0 [facility] HEMATOLOGY MPV 7.8 7.4 - 10.4 02/21 [facility] BLOOD BANK Antibody Negative 02/21 RESULTS Scrn (02/21/19 10:03 AM) /2018 [facility] BLOOD BANK ABO/Rh O POS 02/21 RESULTS /2018 [facility] ELECTROLYT Potassium 4.3 3.5 - 5.1 02/21 ES Lvl /2018 [facility] CHEM PANEL eGFR 7 02/21 Result Comment: The [facility] eGFR is calculated using the CKD-EPI [...] AGAP 14.2 10.0 - 02/21 MH 20.0 [facility] CHEM PANEL BUN 35 7 - 22 02/21 [facility] CHEM PANEL Chloride Lvl 104 95 - 109 02/21 [facility] CHEM PANEL Calcium Lvl 8.4 8.5 - 10.5 02/21 [facility] CHEM PANEL CO2 26 24 - 32 02/21 [facility] CHEM PANEL Creatinine 7.88 0.50 - 02/21 Lvl 1.40 [facility] CHEM PANEL Glucose Lvl 75 70 - 99 02/21 [facility] CHEM PANEL Potassium 4.2 3.5 - 5.1 02/21 MH Lvl /2018 [facility] CHEM PANEL Sodium Lvl 140 135 - 145 02/21 [facility] BLOOD BANK Antibody Negative 01/29 RESULTS Scrn (01/29/19 10:27 AM) [facility] BLOOD BANK ABO/Rh O POS 01/29 RESULTS /2018 [facility] CHEM PANEL eGFR 6 01/29 Result Comment: The [facility] eGFR is calculated using the CKD-EPI [...] Chloride Lvl 104 95 - 109 05/ [facility] CHEM PANEL Potassium 4.3 3.5 - 5.1 05/07 MH Lvl /2018 [facility] CHEM PANEL CO2 27 24 - 32 05/ [facility] CHEM PANEL Calcium Lvl 8.2 8.5 - 10.5 05/ [facility] CHEM PANEL Glucose Lvl 113 70 - 99 05/ [facility] CHEM PANEL Sodium Lvl 140 135 - 145 05/ [facility] CHEM PANEL Creatinine 8.24 0.50 - 05/ Lvl 1.40 /2018 [facility] CHEM PANEL BUN 45 7 - 22 05/ [facility] CHEM PANEL AGAP 13.3 10.0 - 05/ 20.0 /2018 [facility] HEMATOLOGY Monocytes # 0.6 0.0 - 0.8 05/ [facility] HEMATOLOGY Eosinophils 0.3 0.0 - 0.5 05/ MH # /2018 [facility] HEMATOLOGY Basophils # 0.1 0.0 - 0.2 05/ [facility] HEMATOLOGY Monocytes 11.3 2.0 - 12.0 05/ [facility] HEMATOLOGY Basophils 1.5 0.0 - 1.0 05/ [facility] HEMATOLOGY Eosinophils 5.5 0.0 - 4.0 05/ [facility] HEMATOLOGY Lymphocytes 15.4 20.0 - 05/ 40.0 /2019 [facility] HEMATOLOGY Segs 66.3 45.0 - 05/07 75.0 /2019 [facility] HEMATOLOGY Neutrophils 3.6 1.5 - 8.1 05/ MH # /2019 [facility] HEMATOLOGY Lymphocytes 0.8 1.0 - 5.5 05/ # /2019 [facility] HEMATOLOGY PTT 43.7 22.9 - 05 MH 35.8 /2019 [facility] HEMATOLOGY INR 1.00 0.85 - 05 1.17 /2019 [facility] HEMATOLOGY PT 13.0 12.0 - 05 MH 14.7 /2019 [facility] HEMATOLOGY Platelet 243 133 - 450 05 [facility] HEMATOLOGY MPV 7.5 7.4 - 10.4 05 [facility] HEMATOLOGY WBC 5.4 3.7 - 10.4 05/ [facility] HEMATOLOGY RBC 3.90 4.70 - 05/ MH 6.10 2018 [facility] HEMATOLOGY MCH 30.3 27.0 - 01/29 MH 31.0 /2018 [facility] HEMATOLOGY MCHC 33.6 32.0 - 01/29 MH 36.0 /2018 [facility] HEMATOLOGY Hgb 11.8 14.0 - 01/29 MH 18.0 [facility] HEMATOLOGY MCV 90.1 80.0 - 01/29 MH 94.0 /2018 [facility] HEMATOLOGY Hct 35.1 42.0 - 01/29 MH 54.0 [facility] HEMATOLOGY RDW 14.6 11.5 - 01/29 MH 14.5 [facility] BLOOD BANK Antibody Negative 12/11 RESULTS Scrn (12/11/18 12:35 PM) [facility] BLOOD BANK ABO/Rh O POS 12/11 RESULTS /2018 [facility] CHEM PANEL eGFR 6 12/11 Result Comment: The [facility] eGFR is calculated using the CKD-EPI [...] Glucose Lvl 62 70 - 99 12/11 [facility] CHEM PANEL BUN 62 7 - 22 12/11 [facility] CHEM PANEL Calcium Lvl 8.1 8.5 - 10.5 12/11 [facility] CHEM PANEL CO2 27 24 - 32 12/11 [facility] CHEM PANEL Chloride Lvl 105 95 - 109 12/11 [facility] CHEM PANEL Potassium 6.0 3.5 - 5.1 12/11 Lvl /2018 [facility] CHEM PANEL Sodium Lvl 140 135 - 145 12/11 [facility] CHEM PANEL Creatinine 8.46 0.50 - 12/11 Lvl 1.40 [facility] CHEM PANEL AGAP 14.0 10.0 - 12/11 MH 20.0 /2019 [facility] HEMATOLOGY Basophils 1.9 0.0 - 1.0 12/11 /2018 [facility] HEMATOLOGY Neutrophils 2.7 1.5 - 8.1 12/11 MH # /2019 [facility] HEMATOLOGY Eosinophils 4.4 0.0 - 4.0 03 /2018 [facility] HEMATOLOGY Monocytes 11.6 2.0 - 12.0 12/11 /2018 [facility] HEMATOLOGY Basophils # 0.1 0.0 - 0.2 12/11 /2018 [facility] HEMATOLOGY Lymphocytes 1.1 1.0 - 5.5 12/11 MH # /2018 [facility] HEMATOLOGY Eosinophils 0.2 0.0 - 0.5 12/11 MH # /2018 [facility] HEMATOLOGY Monocytes # 0.5 0.0 - 0.8 12/11 /2018 [facility] HEMATOLOGY Lymphocytes 23.7 20.0 - 12/11 40.0 /2018 [facility] HEMATOLOGY Segs 58.4 45.0 - 12/11 MH 75.0 /2018 [facility] HEMATOLOGY PTT 42.9 22.9 - 12/11 35.8 /2018 [facility] HEMATOLOGY INR 1.04 0.85 - 12/11 MH 1.17 /2018 [facility] HEMATOLOGY PT 13.4 12.0 - 12/11 MH 14.7 /2018 [facility] HEMATOLOGY MCHC 32.3 32.0 - 12/11 MH 36.0 /2018 [facility] HEMATOLOGY RDW 16.9 11.5 - 12/11 MH 14.5 /2018 [facility] HEMATOLOGY MCH 30.1 27.0 - 12/11 MH 31.0 /2018 [facility] HEMATOLOGY Platelet 214 133 - 450 12/11 [facility] HEMATOLOGY MPV 8.1 7.4 - 10.4 12/11 [facility] HEMATOLOGY MCV 93.1 80.0 - 12/11 94.0 /2019 [facility] HEMATOLOGY Hgb 11.0 14.0 - 12/11 MH 18.0 /2019 [facility] HEMATOLOGY Hct 34.1 42.0 - 12/11 MH 54.0 /2019 [facility] HEMATOLOGY WBC 4.6 3.7 - 10.4 12/11 /2018 [facility] HEMATOLOGY RBC 3.66 4.70 - 12/11 MH 6.10 /2018 [facility] SPECIAL Hgb A1C 5.0 <=5.6 % 12/11 CHEMISTRY [facility] Pathology Reports No Data Provided for This Section Diagnostic Reports Report Value Date Source Ankle wo contrast MRI Clinical Indication: Right ankle pain and swelling - history of gout; rule out osteomyelitis 03/06/2019 [facility] Comparison: Right ankle series 03/04/2019 TECHNIQUE: Multiplanar [...] with percutaneous fluid sampling and analysis. SL: [id number] Foot wo contrast MRI Clinical Indication: - history of gout , right foot and ankle pain 03/06/2019 [facility] Comparison: Right ankle series 03/04/2019 TECHNIQUE: Multiplanar [...] foot. Dorsal subcutaneous edema. No abscess. SL: [id number] Arthrocentesis small Please discard the moderate sedation portion of the report. Moderate sedation was not utilized during this exam. 03/06/2019 [facility] Joint DX PROCEDURE: Sonographic guided biopsy of [...] views DX Patient Name: MARNIE LYLES 03/04/2019 [facility] : 1960; Age: 58 years y/o Male MR: [id number] Study: 3 view examination of the right [...] views DX Chest 2 views DX 12/11/2018 [facility] CLINICAL HISTORY: Coughing - pre-op COMPARISON: none [...] No other significant abnormality is noted. SL: [id number] Consultation Notes No Data Provided for This Section Discharge Summaries No Data Provided for This Section History and Physicals No Data Provided for This Section Vital Signs Vital Sign Value Date Comments Source Respitory Rate 18 03/07/2019 [facility] Systolic (mm Hg) 149 03/07/2019 [facility] Diastolic (mm Hg) 69 03/07/2019 [facility] Temperature Oral (F) 98.2 F 03/07/2019 [facility] Heart Rate 69 03/07/2019 [facility] Respitory Rate 12 03/07/2019 [facility] Respitory Rate 18 03/07/2019 [facility] Systolic (mm Hg) 159 03/07/2019 [facility] Diastolic (mm Hg) 68 03/07/2019 [facility] Heart Rate 68 03/07/2019 [facility] Temperature Oral (F) 97.6 F 03/07/2019 [facility] Systolic (mm Hg) 157 03/07/2019 [facility] Diastolic (mm Hg) 67 03/07/2019 [facility] Heart Rate 69 03/07/2019 [facility] Temperature Oral (F) 98.3 F 03/07/2019 [facility] Height 172.72 cm 03/04/2019 [facility] Weight 92.227 03/04/2019 [facility] BMI Calculated 30.92 03/04/2019 [facility] Respitory Rate 16 02/21/2019 [facility] Systolic (mm Hg) 103 02/21/2019 [facility] Diastolic (mm Hg) 51 02/21/2019 [facility] Systolic (mm Hg) 98 02/21/2019 [facility] Diastolic (mm Hg) 52 02/21/2019 [facility] Respitory Rate 16 02/21/2019 [facility] Systolic (mm Hg) 94 02/21/2019 [facility] Diastolic (mm Hg) 50 02/21/2019 [facility] Respitory Rate 13 02/21/2019 [facility] Heart Rate 66 01/29/2019 [facility] Temperature Oral (F) 97.5 F 01/29/2019 [facility] BMI Calculated 30.4 01/29/2019 [facility] Weight 90.682 01/29/2019 [facility] Height 172.72 cm 01/29/2019 [facility] Systolic (mm Hg) 133 12/20/2018 [facility] Diastolic (mm Hg) 57 12/20/2018 [facility] Respitory Rate 13 12/20/2018 [facility] Respitory Rate 14 12/20/2018 [facility] Systolic (mm Hg) 142 12/20/2018 [facility] Diastolic (mm Hg) 60 12/20/2018 [facility] Respitory Rate 16 12/20/2018 [facility] Systolic (mm Hg) 123 12/20/2018 [facility] Diastolic (mm Hg) 66 12/20/2018 [facility] Temperature Oral (F) 97.3 F 12/20/2018 [facility] Height 172.72 cm 12/11/2018 [facility] BMI Calculated 30.49 12/11/2018 [facility] Weight 90.966 12/11/2018 [facility] Temperature Oral (F) 97.8 F 12/11/2018 [facility] Heart Rate 69 12/11/2018 [facility] Encounters Location Location Encounter Encounter Reason Attending ADM DC Status Source Details Type Number For Provider Date Date Visit [facility] [id number] Stephan 12/20 12/20 [facility] Outpatient [id number] Juventino 12/25 Active [facility] Phone [id number] 01/15 01/17 [facility] [place] [facility] [id number] Juventino 01/31 [facility] Ambulatory [id number] Juventino 01/31 01/31 [facility] [place] [facility] [id number] Stephan 02/21 02/21 [facility] Inpatient [id number] Rolan Rice 03/04 03/07 [facility]2018 [facility] Procedures Procedure Code Date Perfomer Comments Source Stent placement [id number] 10/26/2018 [facility] Stent placement [id number] 10/26/2018 [facility] Stent placement [id number] 07/26/2018 [facility] Stent placement [id number] 07/26/2018 [facility] Amputation of toe [id number] 11/23/2005 [facility] Amputation of toe [id number] 11/23/2005 [facility] - Pulmonary [id number] [facility] arteriovenous fistula operation Assessment and Plan Assessment and Plan Date Source Extracted from:Title: History and Physical 03/07/2019 [facility] Author: Veena De La Rosa MD Date: 03/04/19 58-year-old male with history of ESRD, type 2 diabetes, hypertension, CAD status post stentswho presented to a freestanding ED in [place] complaining of swelling and purulent drainage coming from his right AV fistula. 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 Sexual Sexually active: No. Exercise 1 Employment/School Status: Employed. Work/School description: [place] Alcohol Current, Type Wine. Frequency: 1-2 times per week.2 Smoking Status Former smoker; Type: Cigarettes; Exposure to Tobacco Smoke None; Cigarette Smoking Last 365 Days No; Reg Smoking Cessation Counseling No; Other Tobacco Frequency Pt. quit in 2016.; entered on: 03/04/19 [id number] Social History TypeResponse 12/11/2018 [facility] Substance Abuse Use: None. Employment/School Status: Employed. Work/School description: [employer]. Alcohol Current, Type Wine.1 Smoking Status Former [...]
--- OUTSIDE RECORDS SUMMARY | 2019-04-23 08:07 | XMS REPORT ---
:1960 Author Organization [facility] Address [address] [place] [address] Dr. Hernandez [address] [place] [id number] Care Team Providers Name Role Phone Unavailable Unavailable Unavailable Problems This patient has no known problems. Allergies, Adverse Reactions, Alerts This patient has no known allergies or adverse reactions. Medications This patient has no known medications. Encounters Start End Encounter Admission Attending Care Care Encounter Date/Time Date/Time Type Type Clinicians Facility Department ID 2019-03-04 Inpatient [facility] [id number] 17:21:00 2019-02-21 2019-02-21 Outpatient [facility] [id number] 11:31:00 11:31:00
[2019-04-23 08:42] LABS: Absolute Lymphocytes (CBC) 0.7 K/uL (0.7-4.9); Hematocrit 33.8 % (39.6-49.0); Lymphocytes % 10.2 % (15.3-44.8); MPV 8.4 fL (7.6-11.3); RBC Red Blood Cell Count 3.66 M/uL (4.33-5.43)
[2019-04-23 08:53] LABS: Magnesium 2.6 mg/dL (1.8-2.4); Phosphorus 5.6 mg/dL (2.5-4.9)
--- NOTE | 2019-04-23 09:08 | RAD REPORT ---
EXAM DESCRIPTION: RAD - Chest Single View - 04/23/2019 8:39 am CLINICAL HISTORY: esrd Chest pain. COMPARISON: Chest Single View dated 03/04/2019; Chest Single View dated 11/07/2018; Chest Single View dated 11/06/2018; Chest Single View dated 08/22/2018 FINDINGS: Portable technique limits examination quality. Mild interstitial pulmonary edema. The heart is moderately enlarged in size. No displaced fractures.A right venous catheter has tip in the SVC. IMPRESSION: Mild CHF versus volume overload pattern.
--- NOTE | 2019-04-23 09:09 | RAD REPORT ---
EXAM DESCRIPTION: RAD - Foot Left 3 View - 04/23/2019 8:39 am CLINICAL HISTORY: PAIN COMPARISON: Foot Left 3 View dated 12/20/2013 FINDINGS: Vascular calcification is seen. No fracture evident. Moderate plantar calcaneal spur.
--- NOTE | 2019-04-23 09:11 | EDPHYS ---
Physician Documentation [facility] Name: Wade Koehler Age: 58 yrs Sex: Male : 1960 Arrival Date: 04/23/2019 Time: 08:03 Bed 20 Private MD: Dante Best V ED Physician Jerald Wiley HPI: 04/23 08:20 This 58 yrs old Male presents to ER via Wheelchair with complaints of Abnormal snw Lab Results. 08:20 Onset: The symptoms/episode began/occurred suddenly. Associated signs and symptoms: The snw patient has no apparent associated signs or symptoms. It is unknown whether or not the patient has had similar symptoms in the past. dialysis yesterday, dry wt 90kg, left post dialysis at 95kg. Notified this am to come to ED 2nd to postassium of 6.2. Historical: - Allergies: 08:19 NKA; iw - Home Meds: 08:19 Acidophilus 2 tabs daily Oral [Active]; aspirin 81 mg Oral TbEC 1 tab once daily iw [Active]; bumetanide 2 mg Oral tab 1 tab 2 times per day [Active]; carvedilol 6.25 mg Oral tab 1 tab daily [Active]; ferric citrate 20mg Oral [Active]; gabapentin 600 mg Oral tab 1 tab [Active]; Lantus 35 units Sub-Q daily [Active]; losartan 100 mg Oral tab 1 tab once daily [Active]; Lyrica 25 mg Oral 4 caps daily [Active]; nifedipine 30 mg Oral TbER 1 tab once daily [Active]; nitroglycerin 0.4 mg SL subl 1 tab [Active]; prasurgel 10 mg [Active]; tamsulosin 0.4 mg Oral cp24 1 cap once daily [Active]; vitamin b [Active]; zolpidem 10 mg Oral tab 1 tab once daily [Active]; - PMHx: 08:19 Diabetes - IDDM; Dialysis; at home seven days a week'; ESRD; Hypertension; PERIPHERAL iw NEUROPATHY; - Immunization history:: Adult Immunizations up to date. - Social history:: Smoking status: Patient uses tobacco products, denies chronic smoking, but will smoke occasionally. - Ebola Screening: : Patient negative for fever greater than or equal to 101.5 degrees Fahrenheit, and additional compatible Ebola Virus Disease symptoms Patient denies exposure to infectious person Patient denies travel to an Ebola-affected area in the 21 days before illness onset No symptoms or risks identified at this time. ROS: 08:20 Constitutional: Negative for fever, chills, and weight loss, Eyes: Negative for injury, snw pain, redness, and discharge, ENT: Negative for injury, pain, and discharge, Neck: Negative for injury, pain, and swelling, Cardiovascular: Negative for chest pain, palpitations, and edema, Respiratory: Negative for shortness of breath, cough, wheezing, and pleuritic chest pain, Abdomen/GI: Negative for abdominal pain, nausea, vomiting, diarrhea, and constipation, Back: Negative for injury and pain, : Negative for injury, bleeding, discharge, and swelling, MS/Extremity: Negative for deformity, left lateral foot pain Skin: Negative for injury, rash, and discoloration, Neuro: Negative for headache, weakness, numbness, tingling, and seizure. Exam: 08:17 Constitutional: This is a well developed, well nourished patient who is awake, alert, snw and in no acute distress. Head/Face: Normocephalic, atraumatic. Eyes: Pupils equal round and reactive to light, extra-ocular motions intact. Lids and lashes normal. Conjunctiva and sclera are non-icteric and not injected. Cornea within normal limits. Periorbital areas with no swelling, redness, or edema. ENT: Nares patent. No nasal discharge, no septal abnormalities noted. Tympanic membranes are normal and external auditory canals are clear. Oropharynx with no redness, swelling, or masses, exudates, or evidence of obstruction, uvula midline. Mucous membranes moist. Neck: Trachea midline, no thyromegaly or masses palpated, and no cervical lymphadenopathy. Supple, full range of motion without nuchal rigidity, or vertebral point tenderness. No Meningismus. Chest/axilla: Normal chest wall appearance and motion. Nontender with no deformity. No lesions are appreciated. Cardiovascular: Regular rate and rhythm with a normal S1 and S2. No gallops, murmurs, or rubs. Normal PMI, no JVD. No pulse deficits. Respiratory: Lungs have equal breath sounds bilaterally, clear to auscultation and percussion. No rales, rhonchi or wheezes noted. No increased work of breathing, no retractions or nasal flaring. Abdomen/GI: Soft, non-tender, with normal bowel sounds. No distension or tympany. No guarding or rebound. No evidence of tenderness throughout. Back: No spinal tenderness. No costovertebral tenderness. Full range of motion. Neuro: Awake and alert, GCS 15, oriented to person, place, time, and situation. Cranial nerves II-XII grossly intact. Motor strength 5/5 in all extremities. Sensory grossly intact. Cerebellar exam normal. Normal gait. Psych: Awake, alert, with orientation to person, place and time. Behavior, mood, and affect are within normal limits. 08:17 Musculoskeletal/extremity: ROM: no acute changes, Circulation is intact in all extremities. Sensation intact. left lateral foot pain post popping noise a few days ago on ambulation, pt in walking boot on right 2nd to gout, missing second digit. 08:17 Skin: Appearance: Color: dusky, Temperature: normal temperature, Moisture: dry. Vital Signs: 08:19 BP 193 / 67; Pulse 62; Resp 16; Temp 97.8; Pulse Ox 100% on R/A; Weight 88.45 kg; iw Height 5 ft. 9 in. (175.26 cm); Pain 9/10; 09:41 BP 165 / 65; Pulse 60; Resp 18; Pulse Ox 100% on R/A; hj 08:19 Body Mass Index 28.80 (88.45 kg, 175.26 cm) iw MDM: 08:23 Patient medically screened. snw 09:10 Data reviewed: vital signs, nurses notes. Counseling: I had a detailed discussion with snw the patient and/or guardian regarding: the historical points, exam findings, and any diagnostic results supporting the discharge/admit diagnosis, the presence of at least one elevated blood pressure reading (>120/80) during this emergency department visit, lab results, radiology results, the need for outpatient follow up, to return to the emergency department if symptoms worsen or persist or if there are any questions or concerns that arise at home. Special discussion: Based on the history and exam findings, there is no indication for further emergent testing or inpatient evaluation. I discussed with the patient/guardian the need to see the primary care provider for further evaluation of the symptoms. nephrology. 04/23 08:15 Order name: CBC with Diff; Complete Time: 08:49 snw 04/23 08:15 Order name: Chem 7; Complete Time: 08:59 snw 04/23 08:15 Order name: Phosphorus; Complete Time: 08:59 snw 04/23 08:15 Order name: Uric Acid; Complete Time: 08:59 snw 04/23 08:15 Order name: Magnesium; Complete Time: 08:59 snw 04/23 08:15 Order name: BNP; Complete Time: 08:59 snw 04/23 08:15 Order name: EKG; Complete Time: 08:18 snw 04/23 08:15 Order name: EKG - Nurse/Tech; Complete Time: 08:17 snw 04/23 08:15 Order name: Chest Single View XRAY; Complete Time: 09:18 snw 04/23 08:15 Order name: Foot Left 3 View XRAY; Complete Time: 09:18 snw Administered Medications: No medications were administered Disposition: 10:51 Co-signature as Attending Physician, Jerald Wiley MD. rn Disposition: 04/23/19 09:09 Discharged to Home. Impression: Person with feared health complaint in whom no diagnosis is made, End stage renal disease, Pain in left foot. - Condition is Stable. - Discharge Instructions: Musculoskeletal Pain, Heat Therapy. - Medication Reconciliation Form, Thank You Letter, Antibiotic Education, Prescription Opioid Use form. - Follow up: Dante Best MD; When: 1 - 2 days; Reason: Recheck today's complaints, Continuance of care, Re-evaluation by your physician. Follow up: Emergency Department; When: As needed; Reason: Worsening of condition. Signatures: Dispatcher [employer] EDND Shira Germain, BATTERY TECHNICIAN-C BATTERY TECHNICIAN-Csnw Greta Cabello RN RN iw Nieto, Roman, MD MD rn Joaquin, Henry, RN RN hj Corrections: (The following items were deleted from the chart) 09:41 09:09 04/23/2019 09:09 Discharged to Home. Impression: Person with feared health hj complaint in whom no diagnosis is made; End stage renal disease; Pain in left foot. Condition is Stable. Forms are Medication Reconciliation Form, Thank You Letter, Antibiotic Education, Prescription Opioid Use. Follow up: Dante Best; When: 1 - 2 days; Reason: Recheck today's complaints, Continuance of care, Re-evaluation by your physician. Follow up: Emergency Department; When: As needed; Reason: Worsening of condition. snw
--- NOTE | 2019-04-23 09:11 | ER ---
Nurse's Notes [facility] Name: Wade Koehler Age: 58 yrs Sex: Male : 1960 Arrival Date: 04/23/2019 Time: 08:03 Bed 20 Private MD: Dante Best V Diagnosis: Person with feared health complaint in whom no diagnosis is made;End stage renal disease;Pain in left foot Presentation: 04/23 08:17 Presenting complaint: Patient states: had labs drawn last Monday, last night his iw doctor called and said his potassium was high, 6.2, last dialysis last night. Transition of care: patient was not received from another setting of care. Onset of symptoms was April 23, 2019. Risk Assessment: Do you want to hurt yourself or someone else? Patient reports no desire to harm self or others. Initial Sepsis Screen: Does the patient meet any 2 criteria? No. Patient's initial sepsis screen is negative. Does the patient have a suspected source of infection? No. Patient's initial sepsis screen is negative. Care prior to arrival: None. 08:17 Method Of Arrival: Wheelchair iw 08:17 Acuity: WILFREDO 3 iw Triage Assessment: 08:17 General: Appears in no apparent distress. uncomfortable, Behavior is calm, cooperative, hj appropriate for age. Pain: Complains of pain in left leg. Historical: - Allergies: 08:19 NKA; iw - Home Meds: 08:19 Acidophilus 2 tabs daily Oral [Active]; aspirin 81 mg Oral TbEC 1 tab once daily iw [Active]; bumetanide 2 mg Oral tab 1 tab 2 times per day [Active]; carvedilol 6.25 mg Oral tab 1 tab daily [Active]; ferric citrate 20mg Oral [Active]; gabapentin 600 mg Oral tab 1 tab [Active]; Lantus 35 units Sub-Q daily [Active]; losartan 100 mg Oral tab 1 tab once daily [Active]; Lyrica 25 mg Oral 4 caps daily [Active]; nifedipine 30 mg Oral TbER 1 tab once daily [Active]; nitroglycerin 0.4 mg SL subl 1 tab [Active]; prasurgel 10 mg [Active]; tamsulosin 0.4 mg Oral cp24 1 cap once daily [Active]; vitamin b [Active]; zolpidem 10 mg Oral tab 1 tab once daily [Active]; - PMHx: 08:19 Diabetes - IDDM; Dialysis; at home seven days a week'; ESRD; Hypertension; PERIPHERAL iw NEUROPATHY; - Immunization history:: Adult Immunizations up to date. - Social history:: Smoking status: Patient uses tobacco products, denies chronic smoking, but will smoke occasionally. - Ebola Screening: : Patient negative for fever greater than or equal to 101.5 degrees Fahrenheit, and additional compatible Ebola Virus Disease symptoms Patient denies exposure to infectious person Patient denies travel to an Ebola-affected area in the 21 days before illness onset No symptoms or risks identified at this time. Screenin:17 Abuse screen: Denies threats or abuse. Denies injuries from another. Nutritional hj screening: No deficits noted. Tuberculosis screening: No symptoms or risk factors identified. Fall Risk None identified. Assessment: 08:17 General: Appears in no apparent distress. uncomfortable, Behavior is calm, cooperative, hj appropriate for age. Pain: Complains of pain in left leg. Neuro: Level of Consciousness is awake, alert, obeys commands, Oriented to person, place, time, situation, Appropriate for age. Cardiovascular: Capillary refill < 3 seconds Patient's skin is warm and dry. Respiratory: Airway is patent Respiratory effort is even, unlabored, Respiratory pattern is regular, symmetrical. GI: No signs and/or symptoms were reported involving the gastrointestinal system. : No signs and/or symptoms were reported regarding the genitourinary system. EENT: No signs and/or symptoms were reported regarding the EENT system. Derm: No signs and/or symptoms reported regarding the dermatologic system. Musculoskeletal: No signs and/or symptoms reported regarding the musculoskeletal system. 09:40 Reassessment: Patient and/or family updated on plan of care and expected duration. Pain hj level reassessed. Patient is alert, oriented x 3, equal unlabored respirations, skin warm/dry/pink. Patient states feeling better. Patient states symptoms have improved. Vital Signs: 08:19 BP 193 / 67; Pulse 62; Resp 16; Temp 97.8; Pulse Ox 100% on R/A; Weight 88.45 kg; iw Height 5 ft. 9 in. (175.26 cm); Pain 9/10; 09:41 BP 165 / 65; Pulse 60; Resp 18; Pulse Ox 100% on R/A; hj 08:19 Body Mass Index 28.80 (88.45 kg, 175.26 cm) iw ED Course: 08:03 Patient arrived in ED. rg4 08:04 Dante Best MD is Private Physician. rg4 08:07 Gianfranco Garza, RN is Primary Nurse. hj 08:07 Shira Germain FNP-C is [facility]. snw 08:07 Jerald Wiley MD is Attending Physician. snw 08:17 Patient has correct armband on for positive identification. Bed in low position. Call hj light in reach. Side rails up X 1. 08:18 Triage completed. iw 08:18 EKG done, by technical training coordinator. reviewed by Shira PALACIOS. sm3 08:19 Arm band placed on. iw 08:29 Initial lab(s) drawn, by me, sent to lab. Inserted saline lock: 22 gauge in left jb1 antecubital area, using aseptic technique. Blood collected. 08:39 X-ray completed. Portable x-ray completed in exam room. Patient tolerated procedure jb2 well. 08:56 Notified Nurse Practitioner and/or Physician Director Biostatistics of a critical lab result(s), iw Creatinine 7.53. 08:57 Chest Single View XRAY In Process Unspecified. EDMS 08:57 Foot Left 3 View XRAY In Process Unspecified. EDMS 09:09 Dante Best MD is Referral Physician. snw 09:40 No provider procedures requiring assistance completed. IV discontinued, intact, hj bleeding controlled, No redness/swelling at site. Pressure dressing applied. Administered Medications: No medications were administered Outcome: 09:09 Discharge ordered by . snw 09:41 Discharged to home ambulatory, with crutches. hj 09:41 Condition: stable 09:41 Discharge instructions given to patient, Instructed on discharge instructions, follow up and referral plans. Demonstrated understanding of instructions, follow-up care. 09:41 Patient left the ED. hj Signatures: Dispatcher [employer] EDMS Luigi Tuttle jb1 Shira Germain FNP-C FNP-Orville Hernandez jb2 rGeta Cabello RN RN iw Gianfranco Garza, RN JAYDE Marcia Monroe rg4 Yanira Givens sm3
[2019-04-23 09:53] VITALS: TEMP 97.8; O2SAT 100
[2019-04-23 09:55] VITALS: BP 165/65
--- NOTE | 2019-04-23 13:35 | EKG ---
Test Date: 2019-04-23 Test Time: 08:19:40 Dobby Looms Pegger: MIRELA MEASUREMENT RESULTS: Intervals: Rate: 71 MN: 164 QRSD: 80 QT: 396 QTc: 430 [place]: P: 40 MN: 164 QRS: 28 T: 53 INTERPRETIVE STATEMENTS: Normal sinus rhythm Possible Left atrial enlargement Anterior infarct, age undetermined Abnormal ECG Compared to ECG 03/04/2019 11:53:47 Myocardial infarct finding now present Electronically Signed On 04-23-19 13:34:00 CDT by Travis Coles
== END 2019-04-23 09:41 | disposition home or self-care (01) ==
LOC: ER 07:59
DX: E11.22 Type 2 diabetes mellitus with diabetic chronic kidney disease (principal); I12.0 Hypertensive chronic kidney disease with stage 5 chronic kidney disease or end stage renal disease; N18.6 End stage renal disease; Z99.2 Dependence on renal dialysis; M79.672 Pain in left foot; Z71.1 Person with feared health complaint in whom no diagnosis is made; Z79.4 Long term (current) use of insulin; Z79.82 Long term (current) use of aspirin
CPT/HCPCS: 36415; 71045; 80048; 83735; 83880; 84100; 84550; 85025; 93005; 99284

== ENCOUNTER 2019-07-12 12:13 | Emergency (ER) | payer BC, OTHER ==
--- NOTE | 2019-07-12 12:53 | EKG ---
Test Date: 2019-07-12 Test Time: 12:15:44 Duster Tender: AG/T MEASUREMENT RESULTS: Intervals: Rate: 71 NE: 154 QRSD: 84 QT: 430 QTc: 467 [place]: P: 45 NE: 154 QRS: 41 T: 58 INTERPRETIVE STATEMENTS: Normal sinus rhythm Possible Left atrial enlargement Anterior infarct, age undetermined Abnormal ECG Compared to ECG 04/23/2019 08:19:40 No significant changes Electronically Signed On 07-12-19 12:52:44 CDT by Bong Coleman
[2019-07-12 13:06] LABS: Absolute Lymphocytes (CBC) 0.5 K/uL (0.7-4.9); Basophils % 1.1 % (0-1.3); Lymphocytes % 10.5 % (15.3-44.8); MPV 7.3 fL (7.6-11.3); RBC Red Blood Cell Count 3.93 M/uL (4.33-5.43)
--- NOTE | 2019-07-12 13:12 | RAD REPORT ---
EXAM DESCRIPTION: [place] Single View07/12/2019 1:02 pm CLINICAL HISTORY: Shortness of breath COMPARISON: March 2019 FINDINGS: The lungs appear clear of acute infiltrate. The heart is mildly enlarged Mild prominence of the mediastinum is unchanged and previously shown to represent a combination of mi ld lymphadenopathy and prominent fat
[2019-07-12 13:19] LABS: Albumin 3.3 g/dL (3.4-5.0); Bilirubin Direct 0.3 mg/dL (0-0.2); Bilirubin Total 0.7 mg/dL (0.2-1.0); Magnesium 1.9 mg/dL (1.8-2.4); Potassium 3.6 mmol/L (3.5-5.1); Protein, Total 7.7 g/dL (6.4-8.2); Troponin (Emerg Dept Use Only) 0.16 ng/mL (0.0-0.045)
[2019-07-12] MEDS ORDERED: ALBUTEROL 2.5 MG/3 ML NEB SOL ONE (14:19)
[2019-07-12] MEDS ORDERED: IPRATROPIUM BROM 0.5MG/2.5ML ONE (14:19)
--- NOTE | 2019-07-12 14:57 | EDPHYS ---
Physician Documentation [facility] Name: Wade Koehler Age: 59 yrs Sex: Male : 1960 Arrival Date: 07/12/2019 Time: 12:17 Bed 23 Private MD: ED Physician Tahir Reid HPI: 07/12 16:25 This 59 yrs old Male presents to ER via EMS with complaints of weakness. gs 16:25 The patient presents to the emergency department with weakness of the entire body, gs generalized weakness. Onset: The symptoms/episode began/occurred today, after dialysis. Associated signs and symptoms: Pertinent positives: weakness, sob. Severity of symptoms: At their worst the symptoms were moderate in the emergency department the symptoms have resolved. Current symptoms: Currently, the patient is not experiencing any symptoms, the patient feels back to baseline. The patient has experienced similar episodes in the past, a few times. Historical: - Allergies: 12:23 NKA; mg2 - Home Meds: 14:01 Acidophilus 2 tabs daily Oral [Active]; aspirin 81 mg Oral TbEC 1 tab once daily mg2 [Active]; bumetanide 2 mg Oral tab 1 tab 2 times per day [Active]; carvedilol 6.25 mg Oral tab 1 tab daily [Active]; ferric citrate 20mg Oral [Active]; gabapentin 600 mg Oral tab 1 tab [Active]; Lantus 35 units Sub-Q daily [Active]; losartan 100 mg Oral tab 1 tab once daily [Active]; Lyrica 25 mg Oral 4 caps daily [Active]; nifedipine 30 mg Oral TbER 1 tab once daily [Active]; nitroglycerin 0.4 mg SL subl 1 tab [Active]; prasurgel 10 mg [Active]; tamsulosin 0.4 mg Oral cp24 1 cap once daily [Active]; vitamin b [Active]; zolpidem 10 mg Oral tab 1 tab once daily [Active]; - PMHx: 12:23 Diabetes - IDDM; Dialysis; at home seven days a week'; ESRD; Hypertension; PERIPHERAL mg2 NEUROPATHY; - PSHx: 12:23 Cholecystectomy; Heart stents; mg2 - Immunization history:: Flu vaccine is up to date. - Social history:: Smoking status: Patient/guardian denies using tobacco, Patient uses alcohol, weekly. Patient/guardian denies using street drugs, IV drugs. - Ebola Screening: : No symptoms or risks identified at this time. ROS: 16:25 All other systems are negative. gs Exam: 16:25 Head/Face: Normocephalic, atraumatic. Eyes: Pupils equal round and reactive to light, gs extra-ocular motions intact. Lids and lashes normal. Conjunctiva and sclera are non-icteric and not injected. Cornea within normal limits. Periorbital areas with no swelling, redness, or edema. ENT: Nares patent. No nasal discharge, no septal abnormalities noted. Tympanic membranes are normal and external auditory canals are clear. Oropharynx with no redness, swelling, or masses, exudates, or evidence of obstruction, uvula midline. Mucous membranes moist. Neck: Trachea midline, no thyromegaly or masses palpated, and no cervical lymphadenopathy. Supple, full range of motion without nuchal rigidity, or vertebral point tenderness. No Meningismus. Chest/axilla: Normal chest wall appearance and motion. Nontender with no deformity. No lesions are appreciated. Cardiovascular: Regular rate and rhythm with a normal S1 and S2. No gallops, murmurs, or rubs. Normal PMI, no JVD. No pulse deficits. Respiratory: Lungs have equal breath sounds bilaterally, clear to auscultation and percussion. No rales, rhonchi or wheezes noted. No increased work of breathing, no retractions or nasal flaring. Abdomen/GI: Soft, non-tender, with normal bowel sounds. No distension or tympany. No guarding or rebound. No evidence of tenderness throughout. Back: No spinal tenderness. No costovertebral tenderness. Full range of motion. Skin: Warm, dry with normal turgor. Normal color with no rashes, no lesions, and no evidence of cellulitis. MS/ Extremity: Pulses equal, no cyanosis. Neurovascular intact. Full, normal range of motion. Neuro: Awake and alert, GCS 15, oriented to person, place, time, and situation. Cranial nerves II-XII grossly intact. Motor strength 5/5 in all extremities. Sensory grossly intact. Cerebellar exam normal. Normal gait. 16:25 Constitutional: The patient appears alert, awake. Vital Signs: 12:21 BP 144 / 73; Pulse 73; Resp 22; Temp 97.6(O); Pulse Ox 100% on R/A; Weight 88.45 kg; mg2 Height 5 ft. 9 in. (175.26 cm); 13:32 BP 142 / 86; Pulse 72; Resp 19; Temp 98.7(O); Pulse Ox 100% on R/A; lt1 13:58 BP 154 / 69; Pulse 78; Resp 18; Pulse Ox 100% on R/A; mg2 15:09 BP 166 / 62; Pulse 80; Resp 17; Temp 98.3(O); Pulse Ox 100% on R/A; mg2 12:21 Body Mass Index 28.80 (88.45 kg, 175.26 cm) mg2 MDM: 12:40 Patient medically screened. pm1 16:44 Data reviewed: vital signs, nurses notes, lab test result(s), EKG, radiologic studies. gs Counseling: I had a detailed discussion with the patient and/or guardian regarding: the historical points, exam findings, and any diagnostic results supporting the discharge/admit diagnosis, radiology results, the need for outpatient follow up. Response to treatment: the patient's symptoms have resolved after treatment, the patient's condition has returned to base line, requests to go home and not to be admitted. 07/12 12:44 Order name: Basic Metabolic Panel; Complete Time: 13:25 kdr 07/12 12:44 Order name: CBC with Diff; Complete Time: 13:19 kdr 07/12 12:44 Order name: LFT's; Complete Time: 13:25 kdr 07/12 12:44 Order name: Magnesium; Complete Time: 13:25 kdr 07/12 12:44 Order name: NT PRO-BNP; Complete Time: 13:25 kdr 07/12 12:44 Order name: PT-INR; Complete Time: 13:19 kdr 07/12 12:44 Order name: Troponin (emerg Dept Use Only); Complete Time: 13:25 kdr 07/12 12:44 Order name: XRAY Chest (1 view); Complete Time: 13:19 kdr 07/12 12:44 Order name: EKG; Complete Time: 12:45 kdr 07/12 12:44 Order name: Cardiac monitoring; Complete Time: 12:47 kdr 07/12 12:44 Order name: EKG - Nurse/Tech; Complete Time: 12:47 kdr 07/12 13:41 Order name: Troponin (emerg Dept Use Only); Complete Time: 14:27 kdr 07/12 12:44 Order name: IV Saline Lock; Complete Time: 12:47 kdr 07/12 12:44 Order name: Labs collected and sent; Complete Time: 12:47 kdr 07/12 12:44 Order name: O2 Per Protocol; Complete Time: 12:47 kdr 07/12 12:44 Order name: O2 Sat Monitoring; Complete Time: 12:47 kdr Administered Medications: 14:22 Drug: Albuterol 2.5 mg Route: Inhalation; mg2 14:54 Follow up: Response: No adverse reaction; Marked relief of symptoms mg2 14:22 Drug: AtroVENT Aerosol 0.5 mg Route: Inhalation; mg2 14:54 Follow up: Response: No adverse reaction mg2 Disposition: 07/12/19 14:56 Discharged to Home. Impression: Weakness. - Condition is Stable. - Discharge Instructions: Weakness. - Medication Reconciliation Form, Thank You Letter, Antibiotic Education, Prescription Opioid Use form. - Follow up: Private Physician; When: 2 - 3 days; Reason: Re-evaluation by your physician. Signatures: Dispatcher [employer] EDNikolay Guillaume MD MD [facility] Baljit Pope TELECINE OPERATOR TELECINE OPERATOR pm1 Tahir Reid MD MD Mahamed Doe, RN RN mg2 Corrections: (The following items were deleted from the chart) 15:10 14:56 07/12/2019 14:56 Discharged to Home. Impression: Weakness. Condition is Stable. mg2 Forms are Medication Reconciliation Form, Thank You Letter, Antibiotic Education, Prescription Opioid Use. Follow up: Private Physician; When: 2 - 3 days; Reason: Re-evaluation by your physician. gs
--- NOTE | 2019-07-12 14:57 | ER ---
Nurse's Notes [facility] Name: Wade Koehler Age: 59 yrs Sex: Male : 1960 Arrival Date: 07/12/2019 Time: 12:17 Bed 23 Private MD: Diagnosis: Weakness Presentation: 07/12 12:18 Presenting complaint: EMS states: patient was in dialysis today, when he complained of mg2 body weakness and tachypnea. he completed his 4 hour dialysis. he does his dialysis every MWF. he also says his right ankle hurts. Transition of care: patient was not received from another setting of care. Onset of symptoms was July 12, 2019. Risk Assessment: Do you want to hurt yourself or someone else? Patient reports no desire to harm self or others. Initial Sepsis Screen: Does the patient meet any 2 criteria? No. Patient's initial sepsis screen is negative. Does the patient have a suspected source of infection? No. Patient's initial sepsis screen is negative. Care prior to arrival: None. 12:18 Method Of Arrival: EMS: [facility] mg2 12:18 Acuity: WILFREDO 3 mg2 Historical: - Allergies: 12:23 NKA; mg2 - Home Meds: 14:01 Acidophilus 2 tabs daily Oral [Active]; aspirin 81 mg Oral TbEC 1 tab once daily mg2 [Active]; bumetanide 2 mg Oral tab 1 tab 2 times per day [Active]; carvedilol 6.25 mg Oral tab 1 tab daily [Active]; ferric citrate 20mg Oral [Active]; gabapentin 600 mg Oral tab 1 tab [Active]; Lantus 35 units Sub-Q daily [Active]; losartan 100 mg Oral tab 1 tab once daily [Active]; Lyrica 25 mg Oral 4 caps daily [Active]; nifedipine 30 mg Oral TbER 1 tab once daily [Active]; nitroglycerin 0.4 mg SL subl 1 tab [Active]; prasurgel 10 mg [Active]; tamsulosin 0.4 mg Oral cp24 1 cap once daily [Active]; vitamin b [Active]; zolpidem 10 mg Oral tab 1 tab once daily [Active]; - PMHx: 12:23 Diabetes - IDDM; Dialysis; at home seven days a week'; ESRD; Hypertension; PERIPHERAL mg2 NEUROPATHY; - PSHx: 12:23 Cholecystectomy; Heart stents; mg2 - Immunization history:: Flu vaccine is up to date. - Social history:: Smoking status: Patient/guardian denies using tobacco, Patient uses alcohol, weekly. Patient/guardian denies using street drugs, IV drugs. - Ebola Screening: : No symptoms or risks identified at this time. Screenin:43 Abuse screen: Denies threats or abuse. Denies injuries from another. Nutritional mg2 screening: No deficits noted. Tuberculosis screening: No symptoms or risk factors identified. Fall Risk IV access (20 points). Assessment: 12:43 General: Appears in no apparent distress. comfortable, Behavior is calm, cooperative. mg2 Pain: Complains of pain in right foot. Neuro: Level of Consciousness is awake, alert, obeys commands, Oriented to person, place, time, situation. Neuro: Reports weakness in whole body. Cardiovascular: Capillary refill < 3 seconds Patient's skin is warm and dry. Respiratory: Airway is patent Respiratory effort is even, unlabored, Respiratory pattern is regular, symmetrical, tachypnea Breath sounds are clear bilaterally. in mediastinum, right upper lobe, left upper lobe, right middle lobe, left lower lobe and right lower lobe. GI: No signs and/or symptoms were reported involving the gastrointestinal system. : No signs and/or symptoms were reported regarding the genitourinary system. EENT: No signs and/or symptoms were reported regarding the EENT system. Musculoskeletal: 13:58 Reassessment: Patient appears in no apparent distress at this time. Patient and/or mg2 family updated on plan of care and expected duration. Pain level reassessed. Patient is alert, oriented x 3, equal unlabored respirations, skin warm/dry/pink. Vital Signs: 12:21 BP 144 / 73; Pulse 73; Resp 22; Temp 97.6(O); Pulse Ox 100% on R/A; Weight 88.45 kg; mg2 Height 5 ft. 9 in. (175.26 cm); 13:32 BP 142 / 86; Pulse 72; Resp 19; Temp 98.7(O); Pulse Ox 100% on R/A; lt1 13:58 BP 154 / 69; Pulse 78; Resp 18; Pulse Ox 100% on R/A; mg2 15:09 BP 166 / 62; Pulse 80; Resp 17; Temp 98.3(O); Pulse Ox 100% on R/A; mg2 12:21 Body Mass Index 28.80 (88.45 kg, 175.26 cm) mg2 ED Course: 12:17 Patient arrived in ED. mg2 12:17 Mahamed Doe RN is Primary Nurse. mg2 12:21 Triage completed. mg2 12:23 Arm band placed on. mg2 12:24 Baljit Pope NP is [facility]. pm1 12:24 Tahir Reid MD is Attending Physician. pm1 12:43 No provider procedures requiring assistance completed. Inserted saline lock: 20 gauge mg2 in left antecubital area, using aseptic technique. Blood collected. 12:47 Patient has correct armband on for positive identification. teletypesetter monitor on. Pulse mg2 ox on. NIBP on. Door closed. Warm blanket given. 13:01 XRAY Chest (1 view) In Process Unspecified. EDMS 13:59 Repeat lab(s) drawn. by nh, sent to lab. mg2 15:09 IV discontinued, intact, bleeding controlled, No redness/swelling at site. Pressure mg2 dressing applied. Administered Medications: 14:22 Drug: Albuterol 2.5 mg Route: Inhalation; mg2 14:54 Follow up: Response: No adverse reaction; Marked relief of symptoms mg2 14:22 Drug: AtroVENT Aerosol 0.5 mg Route: Inhalation; mg2 14:54 Follow up: Response: No adverse reaction mg2 Outcome: 14:56 Discharge ordered by . 15:10 Discharged to home via wheelchair. mg2 15:10 Condition: stable 15:10 Discharge instructions given to patient, Instructed on discharge instructions, follow up and referral plans. Demonstrated understanding of instructions, follow-up care. 15:10 Patient left the ED. mg2 Signatures: Dispatcher [employer] EDMS Baljit Pope NP DISTRIBUTION TRANSFORMER ASSEMBLER pm1 Tahir Reid MD MD Mahamed Doe RN RN mg2 Walker, Sandra lt1 Corrections: (The following items were deleted from the chart) 12:21 12:18 Presenting complaint: EMS states: patient was in dialysis today, when he mg2 complained of body weakness and tachypnea. he completed his 4 hour dialysis. he does his dialysis every MWF. mg2 12:27 12:21 BP 144 / 73; Pulse 73bpm; Resp 18bpm; Pulse Ox 100% RA; Temp 97.6F Oral; 88.45 mg2 kg; Height 5 ft. 9 in.; BMI: 28.8; mg2
[2019-07-12 15:22] VITALS: O2SAT 100
[2019-07-12 15:26] VITALS: BP 166/62; TEMP 98.3
== END 2019-07-12 15:10 | disposition home or self-care (01) ==
LOC: ER 12:13
DX: R53.1 Weakness (principal); E11.22 Type 2 diabetes mellitus with diabetic chronic kidney disease; I12.0 Hypertensive chronic kidney disease with stage 5 chronic kidney disease or end stage renal disease; N18.6 End stage renal disease; Z99.2 Dependence on renal dialysis; Z79.4 Long term (current) use of insulin; Z95.5 Presence of coronary angioplasty implant and graft
CPT/HCPCS: 36415; 71045; 80048; 80076; 83735; 83880; 84484; 85025; 85610; 93005; 99285

== ENCOUNTER 2019-07-22 21:11 | Inpatient (IN) | payer BC, OTHER ==
[2019-07-22] MEDS ORDERED: HYDROMORPHONE HCL 1 MG/ML INJ ONE (22:01)
[2019-07-22] MEDS: HYDROMORPHONE HCL 1 MG/ML INJ IV PRN (22:05)
[2019-07-22 23:41] LABS: Hematocrit 32.8 % (39.6-49.0); MPV 7.1 fL (7.6-11.3); RBC Red Blood Cell Count 3.63 M/uL (4.33-5.43)
[2019-07-22] MEDS ORDERED: ACETAMINOPHEN 325 MG TABLET PO PRN (23:49)
[2019-07-22] MEDS ORDERED: LOPERAMIDE HCL 2 MG CAPSULE PO PRN (23:50)
[2019-07-22] MEDS ORDERED: DIPHENHYDRAMINE 25 MG TAB/CAP PO PRN (23:50)
[2019-07-22] MEDS ORDERED: POLYETHYL GLY 3350 17 GM/DOSE PO PRN (23:52)
[2019-07-22] MEDS ORDERED: GLUCAGON 1 MG/VIAL IM PRN (23:57)
[2019-07-22] MEDS ORDERED: D50W 25 GM/50 ML SYRINGE IV PRN (23:57)
[2019-07-23] LABS: Protime INR 0.97
[2019-07-23] MEDS: ONDANSETRON 4 MG/2 ML VIAL IV PRN ×5 (00:22→20:58)
[2019-07-23] MEDS: NACHLORIDE 0.45% 1,000 ML IV SCH (00:22)
[2019-07-23 00:25] LABS: Bilirubin Direct 0.1 mg/dL (0-0.2); Bilirubin Total 0.3 mg/dL (0.2-1.0); Magnesium 2.1 mg/dL (1.8-2.4); Phosphorus 3.1 mg/dL (2.5-4.9); Potassium 4.4 mmol/L (3.5-5.1); Protein, Total 7.5 g/dL (6.4-8.2); Thyroid Stimulating Hormone 2.33 uIU/mL (0.360-3.740)
[2019-07-23 00:38] VITALS: BMI 29.5
[2019-07-23] MEDS: HYDROMORPHONE HCL 1 MG/ML INJ IV PRN (01:01)
[2019-07-23] MEDS ORDERED: ZOLPIDEM TARTRATE 10 MG TABLET PO PRN (01:50)
[2019-07-23 05:54] LABS: Absolute Lymphocytes (CBC) 1.7 K/uL (0.7-4.9); Basophils % 1.2 % (0-1.3); Hematocrit 31.6 % (39.6-49.0); Lymphocytes % 29.4 % (15.3-44.8); MPV 7.4 fL (7.6-11.3); RBC Red Blood Cell Count 3.46 M/uL (4.33-5.43)
[2019-07-23 05:57] LABS: Magnesium 2.3 mg/dL (1.8-2.4)
--- NOTE | 2019-07-23 06:28 | RAD REPORT ---
EXAM DESCRIPTION: RAD - Chest Pa And Lat (2 Views) - 07/22/2019 11:12 pm CLINICAL HISTORY: Shortness of breath COMPARISON: July 12 TECHNIQUE: PA and lateral views of the chest were obtained. FINDINGS: The lungs are similar volume to comparison. No focal consolidation or mass. Slight increas e in interstitial opacification present. Vasculature is fractionally increased. Heart size is анна l range and stable. No pleural effusion or pneumothorax seen. No acute bony finding noted. No aorti c abnormality. IMPRESSION: Increase in interstitial opacification compared to prior study. Mild vascular engorgemen t as well. Findings suggest early stages of failure or volume overload. No focal consolidation.
[2019-07-23] MEDS: INSULIN -REGULAR HUMAN 50 UNIT/0.5 ML ML SQ SCH ×4 (07:30→20:58)
[2019-07-23 08:01] LABS: Urine Appearance CLOUDY; Urine Bilirubin NEGATIVE (NEG); Urine Blood TRACE (NEG); Urine Color YELLOW; Urine Glucose TRACE (NEG); Urine Protein 3+ (NEG); Urine Urobilinogen 0.2 mg/dL (0.2-1.0)
[2019-07-23 08:03] LABS: Urine Microscopic Reflex ORDER UMIC
[2019-07-23 08:13] LABS: Urine Bacteria <20 /HPF (NONE SEEN); Urine RBC <5 /HPF (NONE SEEN)
[2019-07-23 08:14] LABS: Urine Amorphous Sediment 1+ /HPF (NONE SEEN); Urine Culture Reflex Order REFLEXED; Urine Sperm PRESENT (NONE SEEN)
[2019-07-23] MEDS: FENTANYL CITR 100 MCG/2 ML IV PRN (08:23)
[2019-07-23] MEDS ORDERED: ENOXAPARIN 30 MG/0.3 ML SQ SCH (09:00)
[2019-07-23 09:03] LABS: Blood Morphology Comment NOT SEEN (NOT SEEN); Platelet Estimate ADEQ
[2019-07-23] MEDS: carvediloL 6.25 MG TAB PO SCH ×2 (09:20→20:56)
[2019-07-23] MEDS ORDERED: LIDOCAINE 2% MPF 5 ML VIAL ONE (09:40)
[2019-07-23] MEDS ORDERED: PROPOFOL 200 MG/20 ML VIAL IV ONE (09:40)
[2019-07-23] MEDS ORDERED: MIDAZOLAM HCL 2 MG/2 ML INJ ONE ×2 (09:40→12:49)
[2019-07-23] MEDS ORDERED: NA CHLORIDE 0.9% 1,000 ML ONE (09:49)
[2019-07-23] MEDS ORDERED: CEFAZOLIN/SWI 1gm 1 GM/10 ML SYR ONE (09:58)
--- NOTE | 2019-07-23 10:18 | EKG ---
Test Date: 2019-07-22 Test Time: 23:36:25 Electronic Scale Assembler And Tester: RT MEASUREMENT RESULTS: Intervals: Rate: 72 KS: 168 QRSD: 86 QT: 422 QTc: 462 [place]: P: 56 KS: 168 QRS: 47 T: 30 INTERPRETIVE STATEMENTS: Normal sinus rhythm Normal ECG Compared to ECG 07/12/2019 12:15:44 Myocardial infarct finding no longer present Electronically Signed On 07-23-19 10:16:01 CDT by Travis Coles
[2019-07-23] MEDS ORDERED: FENTANYL CITR 250 MCG/5 ML ONE (10:24)
[2019-07-23] MEDS ORDERED: EPHEDRINE SULF 50 MG/ML VIAL ONE (11:22)
--- NOTE | 2019-07-23 11:34 | P.OP ---
Resource Technician: Claire COLLINS Preoperative diagnosis: Severe Right Ankle Charcot Arthropathy Postoperative diagnosis: Same Primary procedure: Right BKA Anesthesia: General Estimated blood loss: min Specimen: Right Ankle Findings: as above Complications: None Transferred to: Recovery Room Condition: Good
[2019-07-23] MEDS: MORPHINE 4 MG/ML SYR ONE ×2 (12:15→12:20)
[2019-07-23] MEDS ORDERED: MORPHINE 4 MG/ML SYR ONE ×4 (12:24→12:48)
[2019-07-23] MEDS ORDERED: MEPERIDINE HCL 50 MG/ML ONE (12:56)
--- NOTE | 2019-07-23 13:01 | P.HP ---
Certification for Inpatient Patient admitted to: Inpatient With expected LOS: >2 Midnights Practitioner: I am a practitioner with admitting privileges, knowledge of patient current condition, hospital course, and medical plan of care. Services: Services provided to patient in accordance with Admission requirements found in Title 42 Section 412.3 of the Code of Federal Regulations Patient History Date of Service: 07/23/19 Reason for admission: R FOOT PAIN History of Present Illness: MR. LYLES HAS SEVERE CHARCOT JOINT ON R FOOT THAT HIS FOOT SEEMS TO HAVE CHANGED ANGLE IN THE MID FOOT AND ANY PRESSURE OR EVEN TOUGHING OR MOVING GIVES RISE TO SEVERE PAIN. HE HAS BEEN TO 3 FOOT SURGEONS AND HAS NO GOOD ANSWER FOR THIS. I HAD TOLD HIM BEFORE THAT NO ONE CAN FIX THIS FOOT TO A DEGREE THAT HE WILL BE REASONABLY PAIN FREE. ULCER ON R ANKLE IS FROM ALSO NEUROPATHIC DAMAGE AND IS GETTING WORSE DESPITE ALL EFFORTS. IF HE GOES FOR FOOT SURGERY FIRST THE ULCER HAS TO HEAL AND I DON'T BELIEVE IT WILL HEAL. EVEN AFTER THAT A COMPLICATED SURGERY AND THEN UNPREDICTABLE RECOVERY MAY TAKE YEARS. I DON'T THINK HE CAN SURVIVE WITH THAT MUCH PAIN FOR THAT LONG. I HAD ADVISED AMPUTATION ABOUT A MONTH AGO AND HE HAS ACCEPTED IT TODAY. HIS I AND HIM TALKED ON THE PHONE. SHE UNDERSTOOD. SHE IS IN [place] FOR WORK. HE IS ALONE AT HOME. I CALLED DR. RIGGINS AND ADMITTED HIM YESTERDAY AT 1 PM BUT HE CAME TO HOSPITAL AT 9 45 PM AFTER HEMODIALYSIS. Allergies No Known Allergies Allergy (Verified 12/06/17 14:32) Home Medications: Aspirin Chewable [Aspirin Chewable*] 81 mg PO DAILY 07/22/19 Bumetanide [Bumex] 2 mg PO BID 07/22/19 Carvedilol [Coreg] 6.25 mg PO BID 07/22/19 Gabapentin [Neurontin] 300 mg PO BEDTIME 07/22/19 Insulin Glargine Human [Lantus] 36 unit SQ DAILY 07/22/19 Prasugrel HCl 10 mg PO DAILY 07/22/19 Tamsulosin [Flomax] 0.4 mg PO BEDTIME 07/22/19 Thiamine HCl [Vitamin B-1] 100 mg PO DAILY 07/22/19 Zolpidem Tartrate [Ambien] 10 mg PO BEDTIME 07/22/19 Calcium Acetate [Phoslo] 2 cap PO TIDWM 07/23/19 Calcium Acetate [Phoslo] 667 mg PO SEECOM 07/23/19 - Past Medical/Surgical History Has patient received pneumonia vaccine in the past: Yes Diabetic: Yes -: HTN -: IDDM -: CKD- Dialysis MWF -: sharko foot -: High Cholesterol -: Peripheral Neuropathy -: appendectomy -: cholecystectomy -: amputation right 2nd toe -: 2 stent placements 11/02/18 - Family History Mother -: Heart disease, Diabetes, Kidney disease Notes: HD Father -: Heart disease, Hypertension, Stroke - Social History Smoking Status: Former smoker Alcohol use: Yes CD- Drugs: No Caffeine use: No Place of Residence: Home Review of Systems 10-point ROS is otherwise unremarkable General: As per HPI Physical Examination - Vital Signs Temperature: 97.2 F Blood Pressure: 197/77 Pulse: 62 Respirations: 17 Pulse Ox (%): 98 - Physical Exam General: Alert, Severe distress HEENT: Atraumatic, PERRLA, Mucous membr. moist/pink, EOMI, Sclerae nonicteric Neck: Supple, 2+ carotid pulse no bruit, No LAD, Without JVD or thyroid abnormality Respiratory: Clear to auscultation bilaterally, Normal air movement Cardiovascular: Regular rate/rhythm, Normal S1 S2 Gastrointestinal: Normal bowel sounds, No tenderness Musculoskeletal: No tenderness, Other (SEVERELY DEFORMED R FOOT WITH SEVERE PAIN EVEN WITH ANY LITTLE MOVEMENT.) Integumentary: No rashes, Diabetic ulcer Neurological: Abnormal gait (BARELY ABLE TO WALK EVEN WITH CRUTCH.) Lymphatics: No axilla or inguinal lymphadenopathy - Studies Laboratory Data (last 24 hrs) 07/23/19 05:07: Sodium 134 L, Potassium 5.0, BUN 32 H, Creatinine 6.32 H*, Glucose 113 H, Magnesium 2.3 07/23/19 05:07: WBC 5.7, Hgb 10.6 L, Hct 31.6 L, Plt Count 272 07/22/19 23:21: PT 11.5, INR 0.97, APTT 51.1 H 07/22/19 23:21: Sodium 131 L, Potassium 4.4, BUN 25 H, Creatinine 5.59 H* D, Glucose 153 H, Phosphorus 3.1, Magnesium 2.1, Total Bilirubin 0.3, AST 17, ALT 28, Alkaline Phosphatase 237 H 07/22/19 23:21: WBC 5.5, Hgb 11.3 L, Hct 32.8 L, Plt Count 272 D Assessment and Plan - Problems (Diagnosis) (1) Charcot's joint of right foot Current Visit: No Status: Chronic Plan: SEVERE PAIN AND INOPERABLE FOOT. EVEN IF OPERATION IS DONE THERE IS NO GUARANTEE IF HE WILL EVER WALK ON THIS FOOT. HE HAS OPTED FOR AMPUTATION- AN EDUCATED DECISION BY HIM. HE WILL GET PROSTHESIS AFTER A FEW MONTH. (2) Diabetic nephropathy Onset Date: 11/07/18 Current Visit: No Status: Acute Plan: ON HD. Qualifiers: Diabetes mellitus type: type 2 Qualified Code(s): E11.21 - Type 2 diabetes mellitus with diabetic nephropathy (3) CKD, patient preferred treatment modality peritoneal dialysis Onset Date: 07/17/18 Current Visit: No Status: Chronic (4) Diabetes mellitus Current Visit: No Status: Chronic Plan: SLIDING SCALE AND LANTUS. CHECK A1C Qualifiers: Diabetes mellitus type: type 2 - Advance Directives Does patient have a Living Will: No Does patient have a Durable POA for Healthcare: No
--- NOTE | 2019-07-23 13:42 | PREOPCON ---
Date of Consultation: 07/23/2019 Reason For Consultation: Nonhealing Charcot's foot, right side, that needs BKA. History Of Present Illness: The patient is a 59-year-old gentleman who has had this Charcot's joint for a long time. He went to [place], got opinions, no good options are present for this patient. Hi s ankle is unstable, has a nonhealing wound. He is in pain all the time and after further discussion with Dr. Best and his orthopedic surgeon in [place], he decided that he needs to proceed with a BKA . All options of medical treatment have failed. No fever or chills. No purulent discharge. Compla ining of pain. Review of Systems: Otherwise unremarkable. Past Medical History: Diabetes, hypertension, end-stage renal disease, peripheral neuropathy. Past Surgical History: Cholecystectomy, right toe amputation, appendectomy, peritoneal dialysis cath eter placement, right arm AV fistula. Allergies: NONE. Social History: The patient does not smoke or drink. Family History: Noncontributory. Physical Examination: Vital signs: Stable. He is afebrile. General: He is awake, alert, and oriented x3. Head and Neck: Cranial nerves 2 through 12 are grossly within normal limits. No neck masses. No JV D. Throat clear. Neck is supple. Chest: Clear. Heart: S1, S2. Abdomen: Soft. Extremities: Diminished dorsalis pedis and posterior tibial pulses. The right ankle is very unstabl e. There is a Charcot's ankle joint. There is an open wound on the lateral malleolus area approxima tely 4 cm in diameter, has good granulation tissue. There is no active infection present, but it is very stable and very tender. Laboratory Data: Reviewed. INR is 0.97 and potassium is 5. Assessment: Charcot's joint, right ankle, nonhealing wound. Medical management failed. Recommendation: All options discussed with the patient, will proceed with right below-knee amputatio n with prosthesis down the road. Patient understands the risks, benefits, and alternatives and agree s with procedure. /MODL Voice ID: [id number] Report ID: [id number]
[2019-07-23] MEDS: CA ACETATE 667 MG CAP PO SCH (16:06)
[2019-07-23] MEDS: MEPERIDINE HCL 25 MG/0.5 ML IV PRN ×2 (16:06→20:57)
[2019-07-23] MEDS: BUMETANIDE 1 MG TABLET PO SCH (20:56)
[2019-07-23] MEDS: GABAPENTIN 300 MG CAP PO SCH (20:56)
[2019-07-23] MEDS: TAMSULOSIN 0.4 MG SR CAP PO SCH (20:56)
[2019-07-23] MEDS ORDERED: carvediloL 6.25 MG TAB PO SCH (21:00)
[2019-07-23] MEDS: HYDROCODONE/APAP 7.5/325 MG TAB PO PRN (23:13)
[2019-07-23] MEDS: ZOLPIDEM TARTRATE 10 MG TABLET PO SCH (23:13)
--- NOTE | 2019-07-23 23:43 | PN ---
Subjective: Mr. Koehler was seen yesterday by [facility] and [facility] for [facility] and today this morning, he was seen for a followup. He was ready for surgery this morning. Dr. Lowery entered the room and I exited the room. He is in the same amount of pain, right foot. Pain medications are help ing, but he has a severe amount of pain. Objective: VITAL SIGNS: His blood pressure 197/77 in the morning before medications, pulse is 71, t emperature 97.2. HEENT: No JVD. No carotid bruits. CHEST: Clear. HEART: Regular. ABDOMEN: No guarding, no rebound, no rigidity. Right foot has severe Charcot joint related deformit y and a large ulcer on the lateral foot and lateral ankle. Labs: His hemoglobin is 10.6, hematocrit 31. Chem-7 showed BUN 32, creatinine 6.32. He is on dialy sis. Assessment And Plan: 1.Severe Charcot joint, right foot, unable to tolerate any touching also on this joint. Not able to ambulate properly on the crutches all the time. Any kind of surgery is not going to be successful w ith this kind of severe deformity and his pain is uncontrollable, so he decided to go for amputation. Dr. Lowery will be taking care of today. He is medically cleared with [id number] risk. He barron s had coronary disease, stent placement recently. He had a right leg stent replacement also for emily pheral vascular disease. 2.Renal failure, on dialysis. Dr. Purcell consulted. 3.High blood pressure currently, slightly high but coming down slowly. RVD/MODL Voice ID: [id number] Report ID: [id number]
--- NOTE | 2019-07-24 01:08 | OP ---
Date of Procedure: 07/23/2019 Surgeon: Bruno Lowery MD Inspector Tool: KARINA Miguel Preoperative Diagnosis: Right ankle severe Charcot arthropathy, failed medical management. Postoperative Diagnosis: Right ankle severe Charcot arthropathy, failed medical management. Procedure: Right below-knee amputation. Estimated Blood Loss: Minimal. Specimen: Right leg. Findings: As above. Anesthesia: General. Complications: None. Disposition: Patient tolerated the procedure in stable condition, taken to Recovery in good general condition. Procedure In Detail: Patient was brought to the OR and placed in supine position. General anesthesi a begun. Patient was prepped and draped in usual sterile fashion. Then, a transverse incision 4 fin gerbreadths below the tibial tuberosity made. Flap created and then neurovascular bundle as well as muscle divided. Bleeding controlled with cautery and 2-0 silk ties. Tibia and fibula identified. G igli saw used to divide the tibia and the bone cutters used to divide the fibula. Then, the leg raquel mellissa, sent to Pathology. Wound irrigated. Bleeding controlled with cautery and then the flap fashion ed. The wound closed with 2-0 chromic, 3-0 chromic subcutaneous sutures, and leann used to close t he skin. Sterile dressing applied. Patient awakened, taken to Recovery in good general condition. /MODL Voice ID: [id number] Report ID: [id number]
[2019-07-24] MEDS: MEPERIDINE HCL 25 MG/0.5 ML IV PRN ×4 (01:23→12:15)
[2019-07-24] MEDS: ONDANSETRON 4 MG/2 ML VIAL IV PRN ×3 (01:29→15:01)
[2019-07-24] MEDS: FENTANYL CITR 100 MCG/2 ML IV PRN (03:10)
[2019-07-24 06:27] LABS: Absolute Lymphocytes (CBC) 1.1 K/uL (0.7-4.9); Basophils % 1.1 % (0-1.3); Hematocrit 27.8 % (39.6-49.0); Lymphocytes % 18.3 % (15.3-44.8); MPV 7.7 fL (7.6-11.3); RBC Red Blood Cell Count 3.07 M/uL (4.33-5.43)
[2019-07-24] MEDS: CYCLOBENZAPRINE 10 MG TAB PO PRN ×2 (06:40→18:41)
[2019-07-24 06:44] LABS: Magnesium 2.3 mg/dL (1.8-2.4)
[2019-07-24 06:47] LABS: Potassium 6.1 mmol/L (3.5-5.1)
[2019-07-24] MEDS ORDERED: NA CHLORIDE 0.9% 1,000 ML IV PRN (07:09)
[2019-07-24] MEDS ORDERED: MANNITOL 25% 12.5 GM/50 ML VIAL IV PRN (07:09)
[2019-07-24] MEDS: INSULIN -REGULAR HUMAN 50 UNIT/0.5 ML ML SQ SCH ×4 (07:30→21:00)
[2019-07-24] MEDS ORDERED: ALBUMIN HUMAN 25% 50 ML IV SCH (08:00)
[2019-07-24] MEDS: carvediloL 6.25 MG TAB PO SCH (09:00)
[2019-07-24] MEDS: NACHLORIDE 0.45% 1,000 ML IV SCH (09:05)
[2019-07-24] MEDS ORDERED: EPOETIN 4,000 UNIT/ML VIAL IV SCH (09:30)
[2019-07-24] MEDS: CA ACETATE 667 MG CAP PO SCH ×3 (12:00→16:33)
[2019-07-24] MEDS: THIAMINE HCL 100 MG TABLET PO SCH (12:11)
[2019-07-24] MEDS: BUMETANIDE 1 MG TABLET PO SCH ×2 (12:11→20:17)
[2019-07-24] MEDS: ASPIRIN 81 MG CHEWABLE TABLET PO SCH (12:11)
[2019-07-24] MEDS: INSULIN GLARGINE 100 UNITS/ML SQ SCH (12:14)
[2019-07-24] MEDS: PRASUGREL (EFFIENT) 10 MG TAB PO SCH (12:14)
[2019-07-24] MEDS: MORPHINE 2 MG/ML SYR IV PRN ×3 (15:01→22:06)
--- NOTE | 2019-07-24 16:19 | CON ---
Date of Consultation: 07/24/2019 Reason For Consultation: Hyperkalemia, hypertension, fluid management, end-stage renal disease. History Of Present Illness: This is a pleasant unfortunate 59-year-old gentleman, well known to me f rom the office and at the dialysis center with significant past medical history of diabetes complicat ed with neuropathy complicated with Charcot joint on the right foot; hypertension; hyperlipidemia; en d-stage renal disease on hemodialysis Monday, Monday, Monday at [facility] thr ough right arm AV fistula; hyperlipidemia; coronary artery disease, status post OR, status post PTCA back in early September 2018, complicated with congestive heart failure; the patient had his Charcot poornima int, has multiple admission for reconstruction without any significant response. The patient was adm itted to the hospital for elective amputation. Patient undergo amputation yesterday, tolerated the p rocedure. Lab showed hyperkalemia above 6, for that reason, we have been consulted. The patient is still complaining of pain on the leg where is the amputation. No fever. No chills. Past Medical History: As above. 1.Hypertension. 2.Diabetes, complicated with neuropathy, nephropathy. 3.Charcot joint. 4.Coronary artery disease, status post OR back in September 2018, status post PTCA complicated with co ngestive heart failure. Echocardiogram back in 2019, preserved ejection fraction 56, this is before OR. Social History: Active smoker. Active alcohol. Denies drug abuse. Allergies: NO KNOWN DRUG ALLERGIES. Past Surgical History: Includes: 1.Appendectomy. 2.PermCath placement and removal. 3.AV fistula placement on the right upper arm. 4.PD catheter placement and removal. 5.Cholecystectomy. 6.Right big toe amputation. 7.Right below-knee amputation. Family History: Positive for diabetes and hypertension. Home Medications: Include: 1.Ambien. 2.Gabapentin. 3.Flomax. 4.Carvedilol. 5.Aspirin. 6.Bumex. 7.Prasugrel. Current medications in the hospital include: 1.Flomax. 2.Ambien. 3.Toradol. 4.Insulin. 5.Phenergan. 6.Lovenox. 7.Carvedilol 6.25. 8.Gabapentin. 9.Bumex. 10.PhosLo. 11.Zofran. 12.Loperamide. Review of Systems: Head and Neck: No red eye. No ear pain. GI: No nausea. No vomiting. : No polyuria. No dysuria. No hematuria. CHILD WELFARE COUNSELOR: Not applicable. Respiratory: Shortness of breath. Cardiovascular: No chest pain. Endocrine: No polydipsia. Skin: No rash. Neuro: Neuropathy. Musculoskeletal: Pain on the leg that had amputation. Skin: No rashes. Physical Examination: Vital Signs: When I saw the patient on dialysis, blood pressure slightly on the lower side below 80. The patient is complaining of pain. Patient just received pain medication. Blood pressure 78/60, pulse of 88. Chest: Clear to auscultation. Heart: S1, S2. Regular. Abdomen: Soft, nontender. Extremities: Right below-knee amputation. Left, no edema. Neurologic: Alert and oriented x3. No focal. Laboratory Data: WBC 5.9, H and H 9.6/27.8, platelet 270. Sodium 133, potassium 6.1, bicarb 23, BUN 58, creatinine 8.5, calcium 8.1, magnesium 2.3, phos of 3.1. Chest x-ray; cardiomegaly mild congestion. Assessment And Plan: 1.End-stage renal disease with significant hyperkalemia, normal volume. I go ahead and dialyze the patient on low-potassium bath today down to 1. 2.We will ultrafiltrate as by blood pressure tolerate. 3.Hypertension with intradialytic low blood pressure. We will decrease carvedilol to 3.25. Continu e Bumex. 4.Hyperkalemia. Patient is going to be dialyzed on low-potassium bath. 5.Over volume. Patient is going to be challenged. 6.Foot ulcer, Charcot joint, status post amputation. We will follow up with Surgery. We will consi crys PT, OT. 7.Diabetes as by primary. SUSHANT/GLENNL Voice ID: [id number] Report ID: [id number]
[2019-07-24] MEDS: HYDROCODONE/APAP 7.5/325 MG TAB PO PRN (16:40)
--- NOTE | 2019-07-24 16:55 | PN ---
Date of Progress Note: 07/24/2019 Subjective: Patient is awake, alert, complaining of phantom pain and spasms. Objective: Vital Signs: Stable, afebrile. Extremities: His dressing is clean, dry, intact. Laboratory Data: Reviewed. He is currently in dialysis. Assessment: Status post right below-knee amputation. Recommendations: I ordered Flexeril for the patient, increased the Demerol. If that does not work, patient will need morphine perhaps. He is allergic to Dilaudid. I will discuss with Dr. Estephania crowell er pain management. In the meantime, patient needs physical therapy and rehab evaluation which is in progress and continue antibiotics as ordered. /MODL Voice ID: [id number] Report ID: [id number]
[2019-07-24] MEDS: carvediloL 3.125 MG TAB PO SCH (20:17)
[2019-07-24] MEDS: GABAPENTIN 300 MG CAP PO SCH (20:18)
[2019-07-24] MEDS: PREGABALIN 50 MG CAP PO SCH (20:18)
[2019-07-24] MEDS: TAMSULOSIN 0.4 MG SR CAP PO SCH (20:18)
--- NOTE | 2019-07-24 20:27 | P.PN ---
Subjective Date of Service: 07/23/19 Chief Complaint: R FOOT PAIN Subjective: Worsening SECOND DAY PATIENT WAS SEEN BEFORE AMPUATION. IN SEVERE PAIN R ANKLE ULCER WITH SEVERELY DEFORMED CHARCOT JOINT. HE WANTS AMPUTATION DONE ADVISED HIS PAIN IS SEVERE AND HE IS NOT ABLE TO TOLERATE SHELTER PROCESS OF ULCER HEALING THAT MAY NEVER HEAL IT IS WORSE AFTER GRAFTING ALSO. EVEN AFTER SURGERY THAT MAY HAPPEN SIX MONTHS LATER HE IS STILL NOT GUARANTEED TO WALK OR BE PAINFREE. HIS ALSO HAS BEEN INFORMED BY ME ON PHONE WHILE HE WAS TALKING TO HER. Review of Systems 10-point ROS is otherwise unremarkable Musculoskeletal: Foot Pain Physical Examination - Vital Signs Temperature: 97.7 F Blood Pressure: 152/63 Pulse: 75 Respirations: 19 Pulse Ox (%): 98 - Physical Exam General: Moderate distress, Severe distress HEENT: Atraumatic, PERRLA, EOMI Neck: Supple, JVD not distended Respiratory: Clear to auscultation bilaterally, Normal air movement Cardiovascular: Regular rate/rhythm, Normal S1 S2 Gastrointestinal: Normal bowel sounds, No tenderness Musculoskeletal: No tenderness Integumentary: No rashes, Diabetic ulcer (DEEP ALVAREZ GRADE 3 ULCER , GOT DEEPER EVEN AFTER [facility] AND LATER [place]. THERE IS NO SIGN OF INFECTION. ULCER HAS RED GRANULATION TISUE BUT WITH NEUROPATHIC BACKGROUND IT IS NOT HEALING. ) Neurological: Normal speech, Normal tone, Normal affect Lymphatics: No axilla or inguinal lymphadenopathy - Studies Laboratory Data (last 24 hrs) 07/24/19 05:26: Sodium 133 L, Potassium 6.1 H*, BUN 58 H D, Creatinine 8.51 H* D , Glucose 119 H, Magnesium 2.3 07/24/19 05:26: WBC 5.9, Hgb 9.6 L, Hct 27.8 L, Plt Count 270 Microbiology Data (last 24 hrs): 07/23/19 01:10 Wound - Right Ankle Gram Stain - Final Medications List Reviewed: Yes Assessment And Plan - Current Problems (Diagnosis) (1) Charcot's joint of right foot Current Visit: No Status: Chronic Plan: SEVERE PAIN AND INOPERABLE FOOT. EVEN IF OPERATION IS DONE THERE IS NO GUARANTEE IF HE WILL EVER WALK ON THIS FOOT. HE HAS OPTED FOR AMPUTATION- AN EDUCATED DECISION BY HIM. HE WILL GET PROSTHESIS AFTER A FEW MONTH. AMPUTATION BY DR RIGGINS. (2) Diabetic nephropathy Onset Date: 11/07/18 Current Visit: No Status: Acute Plan: ON HD. Qualifiers: Diabetes mellitus type: type 2 Qualified Code(s): E11.21 - Type 2 diabetes mellitus with diabetic nephropathy (3) CKD, patient preferred treatment modality peritoneal dialysis Onset Date: 07/17/18 Current Visit: No Status: Chronic (4) Diabetes mellitus Current Visit: No Status: Chronic Plan: SLIDING SCALE AND LANTUS. CHECK A1C Qualifiers: Diabetes mellitus type: type 2
--- NOTE | 2019-07-24 20:30 | P.PN ---
Subjective Date of Service: 07/24/19 Chief Complaint: R BKA YEST. Subjective: Improving SECOND DAY PATIENT WAS SEEN BEFORE AMPUATION. IN SEVERE PAIN R ANKLE ULCER WITH SEVERELY DEFORMED CHARCOT JOINT. HE WANTS AMPUTATION DONE ADVISED HIS PAIN IS SEVERE AND HE IS NOT ABLE TO TOLERATE ADDICTIONS RECOVERY SPECIALIST PROCESS OF ULCER HEALING THAT MAY NEVER HEAL IT IS WORSE AFTER GRAFTING ALSO. EVEN AFTER SURGERY THAT MAY HAPPEN SIX MONTHS LATER HE IS STILL NOT GUARANTEED TO WALK OR BE PAINFREE. HIS ALSO HAS BEEN INFORMED BY ME ON PHONE WHILE HE WAS TALKING TO HER. MARNIE IS SP BKA DAY ONE NOW. STILL IN POST OP PAIN. DEMEROL IS NOT WORKING . HE IS NOT ALLERGIC TO DILAUDID , HE WAS VERY NAUSEOUS WITH IT. HE WANTS MORPHINE AND SO WE WILL TRY. Review of Systems 10-point ROS is otherwise unremarkable General: Weakness, Malaise Musculoskeletal: Leg Pain Physical Examination - Vital Signs Temperature: 97.7 F Blood Pressure: 152/63 Pulse: 75 Respirations: 19 Pulse Ox (%): 98 - Physical Exam General: Alert, Moderate distress HEENT: Atraumatic, PERRLA, EOMI Neck: Supple, JVD not distended Respiratory: Clear to auscultation bilaterally, Normal air movement Cardiovascular: Regular rate/rhythm, Normal S1 S2 Gastrointestinal: Normal bowel sounds, No tenderness Musculoskeletal: No tenderness, Other (RIGHT BKA.) Integumentary: No rashes Neurological: Normal speech, Normal tone, Normal affect Lymphatics: No axilla or inguinal lymphadenopathy - Studies Laboratory Data (last 24 hrs) 07/24/19 05:26: Sodium 133 L, Potassium 6.1 H*, BUN 58 H D, Creatinine 8.51 H* D , Glucose 119 H, Magnesium 2.3 07/24/19 05:26: WBC 5.9, Hgb 9.6 L, Hct 27.8 L, Plt Count 270 Microbiology Data (last 24 hrs): 07/23/19 01:10 Wound - Right Ankle Gram Stain - Final Medications List Reviewed: Yes Assessment And Plan - Current Problems (Diagnosis) (1) Charcot's joint of right foot Current Visit: No Status: Chronic Plan: SEVERE PAIN AND INOPERABLE FOOT. EVEN IF OPERATION IS DONE THERE IS NO GUARANTEE IF HE WILL EVER WALK ON THIS FOOT. HE HAS OPTED FOR AMPUTATION- AN EDUCATED DECISION BY HIM. HE WILL GET PROSTHESIS AFTER A FEW MONTH. AMPUTATION BY DR RIGGINS. FABIÁN WAHL. DOING WELL. STABLE. (2) Diabetic nephropathy Onset Date: 11/07/18 Current Visit: No Status: Acute Plan: ON HD. HYPERKALEMIA ON HD. UPHOLSTERY TRIMMER ON CASE. Qualifiers: Diabetes mellitus type: type 2 Qualified Code(s): E11.21 - Type 2 diabetes mellitus with diabetic nephropathy (3) CKD, patient preferred treatment modality peritoneal dialysis Onset Date: 07/17/18 Current Visit: No Status: Chronic (4) Diabetes mellitus Current Visit: No Status: Chronic Plan: SLIDING SCALE AND LANTUS. CHECK A1C Qualifiers: Diabetes mellitus type: type 2
[2019-07-24] MEDS: ZOLPIDEM TARTRATE 10 MG TABLET PO SCH (21:14)
[2019-07-25 05:17] LABS: Absolute Lymphocytes (CBC) 1.4 K/uL (0.7-4.9); Hematocrit 24.2 % (39.6-49.0); Lymphocytes % 22.6 % (15.3-44.8); MPV 7.5 fL (7.6-11.3); RBC Red Blood Cell Count 2.64 M/uL (4.33-5.43)
[2019-07-25 05:52] LABS: Albumin 2.3 g/dL (3.4-5.0); Magnesium 2.3 mg/dL (1.8-2.4); Phosphorus 5.1 mg/dL (2.5-4.9); Potassium 5.3 mmol/L (3.5-5.1)
[2019-07-25] MEDS: MORPHINE 2 MG/ML SYR IV PRN ×3 (06:12→12:01)
[2019-07-25] MEDS: INSULIN -REGULAR HUMAN 50 UNIT/0.5 ML ML SQ SCH ×4 (07:30→21:00)
[2019-07-25] MEDS: CYCLOBENZAPRINE 10 MG TAB PO PRN ×2 (07:38→20:44)
[2019-07-25] MEDS: CA ACETATE 667 MG CAP PO SCH ×3 (09:12→17:02)
[2019-07-25] MEDS: BUMETANIDE 1 MG TABLET PO SCH ×2 (09:12→20:46)
[2019-07-25] MEDS: INSULIN GLARGINE 100 UNITS/ML SQ SCH (09:12)
[2019-07-25] MEDS: carvediloL 3.125 MG TAB PO SCH ×2 (09:13→20:46)
[2019-07-25] MEDS: ASPIRIN 81 MG CHEWABLE TABLET PO SCH (09:13)
[2019-07-25] MEDS: THIAMINE HCL 100 MG TABLET PO SCH (09:13)
[2019-07-25] MEDS: PRASUGREL (EFFIENT) 10 MG TAB PO SCH (09:16)
[2019-07-25] MEDS: PREGABALIN 50 MG CAP PO SCH ×2 (09:16→20:45)
--- NOTE | 2019-07-25 11:38 | PN ---
Date of Progress Note: 07/25/2019 Subjective: Patient is awake, alert. Pain is better. Vital signs stable, afebrile. Dressing clean, dry, intact. Assessment: Status post right below-knee amputation. Recommendations: Pain Management as ordered, physical therapy, rehab evaluation. Patient clinically is doing well. /MODL Voice ID: [id number] Report ID: [id number]
[2019-07-25] MEDS: HYDROCODONE/APAP 7.5/325 MG TAB PO PRN ×2 (15:02→19:04)
--- NOTE | 2019-07-25 16:55 | PN ---
Date of Progress Note: 07/25/2019 Subjective: Patient was admitted with infected foot, Charcot joint, status post below-knee amputatio n. Patient tolerated the procedure a day before yesterday. This is day 2 after surgery. Patient is status post dialysis yesterday. Current Medications: Aspirin, Phenergan, Flomax, Lovenox, Epogen, carvedilol, gabapentin, Bumex 2 mg b.i.d., Lyrica, PhosLo, Zofran. Physical Examination: Vital Signs: When I saw the patient, blood pressure 139/65, pulse of 69. Chest: Clear to auscultation. Heart: S1, S2. Regular. Abdomen: Soft, nontender. Extremities: Right below-knee amputation. No edema. Laboratory Data: WBC 6.1, H and H 8.1/24.2, platelets of 254. Sodium 138, potassium 5.3, bicarb 31, BUN 41, creatinine 6.9, calcium 8.1, phosphorus 5.1, magnesium 2.3. Assessment And Plan: 1.End-stage renal disease. We will continue the patient on dialysis Monday, Monday, Monday. 2.Hyperkalemia, resolved after dialysis. We will dialyze the patient again on 1K bath tomorrow. 3.Secondary hyperparathyroidism. Continue binder. 4.Over volume, resolved. 5.Hypertension, controlled, optimal. Continue current medication. 6.Foot infection, Charcot joint, status post below-knee amputation. We will follow up with Surgery. Continue PT/OT. SUSHANT/QUINTIN Voice ID: [id number] Report ID: [id number]
[2019-07-25] MEDS: TAMSULOSIN 0.4 MG SR CAP PO SCH (20:45)
[2019-07-25] MEDS: GABAPENTIN 300 MG CAP PO SCH (20:45)
[2019-07-25] MEDS: ZOLPIDEM TARTRATE 10 MG TABLET PO SCH (20:47)
[2019-07-26 05:48] LABS: Absolute Lymphocytes (CBC) 1.4 K/uL (0.7-4.9); Hematocrit 22.6 % (39.6-49.0); Lymphocytes % 21.2 % (15.3-44.8); MPV 7.5 fL (7.6-11.3); RBC Red Blood Cell Count 2.47 M/uL (4.33-5.43)
[2019-07-26 06:06] LABS: Albumin 2.1 g/dL (3.4-5.0); Magnesium 2.3 mg/dL (1.8-2.4); Phosphorus 5.8 mg/dL (2.5-4.9); Potassium 5.5 mmol/L (3.5-5.1)
[2019-07-26] MEDS: INSULIN -REGULAR HUMAN 50 UNIT/0.5 ML ML SQ SCH ×4 (07:30→21:00)
--- NOTE | 2019-07-26 08:29 | PN ---
Subjective: Patient is feeling a lot better. His pain is improving. Denies any chest pain, nausea, vomiting. He has tolerated right BKA very well. Physical Examination: Vital Signs: Blood pressure 167/77. Chest: Clear. Heart: Regular. Abdomen: No guarding, no rebound, no rigidity. Extremities: Right BKA. Controlled pain at this point on morphine. Assessment And Plan: 1.We are referring him to rehab for physical therapy after below-knee amputation. He will be gettin g prosthesis may be in few months from now. 2.Diabetes. 3.Peripheral vascular disease. 4.Diabetic neuropathy. 5.Charcot joint, right foot. This is in process as dictated before. Prognosis overall guarded. Co ntinue hemodialysis. RVD/MODL Voice ID: [id number] Report ID: [id number]
[2019-07-26] MEDS: BUMETANIDE 1 MG TABLET PO SCH ×2 (08:43→21:41)
[2019-07-26] MEDS: THIAMINE HCL 100 MG TABLET PO SCH (08:43)
[2019-07-26] MEDS: CA ACETATE 667 MG CAP PO SCH ×3 (08:43→16:37)
[2019-07-26] MEDS: carvediloL 3.125 MG TAB PO SCH ×2 (08:44→21:43)
[2019-07-26] MEDS: INSULIN GLARGINE 100 UNITS/ML SQ SCH (08:44)
[2019-07-26] MEDS: ASPIRIN 81 MG CHEWABLE TABLET PO SCH (08:44)
[2019-07-26] MEDS: PREGABALIN 50 MG CAP PO SCH ×2 (08:45→21:43)
[2019-07-26] MEDS: PRASUGREL (EFFIENT) 10 MG TAB PO SCH (08:48)
[2019-07-26] MEDS: HYDROCODONE/APAP 7.5/325 MG TAB PO PRN ×2 (10:48→23:58)
--- NOTE | 2019-07-26 10:57 | P.PN ---
Subjective Date of Service: 07/26/19 Chief Complaint: R BKA YEST. Pt with ESRD on HD, presented for severe Rt foot pain S/P rt BKA Today no new complaints K 5.5 , dialysis today Cont PT/OT plan to discharge to [facility] Physical Examination - Vital Signs Temperature: 98.8 F Blood Pressure: 120/59 Pulse: 81 Respirations: 18 Pulse Ox (%): 93 - Physical Exam General: In no apparent distress, Oriented x3 HEENT: Atraumatic Neck: Supple, Without JVD or thyroid abnormality Respiratory: Diminished Cardiovascular: No edema, Regular rate/rhythm, Normal S1 S2, No gallops, No rubs , No murmurs Gastrointestinal: Non-distended Musculoskeletal: Other (Rt BKA ) - Studies Laboratory Data (last 24 hrs) 07/26/19 05:16: Sodium 137, Potassium 5.5 H, BUN 56 H, Creatinine 9.09 H* D, Glucose 61 L, Phosphorus 5.8 H, Magnesium 2.3 07/26/19 05:16: WBC 6.7, Hgb 7.9 L*, Hct 22.6 L, Plt Count 261 Microbiology Data (last 24 hrs): 07/23/19 01:10 Wound - Right Ankle Gram Stain - Final 07/23/19 01:10 Wound - Right Ankle Culture & Sensitivity - Final Acinetobacter Ying/Haem 07/23/19 06:30 Clean Catch Urine [place] Count - Final <10,000 CFU/ML. 07/23/19 06:30 Clean Catch Urine - Final MIXED JOHANNE. Medications List Reviewed: Yes Assessment And Plan - Plan End-stage renal disease on HD mWF HD today renal dose meds Acute on Chronic Anemia due to surgical blood loss will increase Epogen MBD cont binders hyperkalemia HD today HTN controlled DM as per primary Charcot foot S/P amputation pain control Cont PT /OT
[2019-07-26] MEDS: MORPHINE 2 MG/ML SYR IV PRN ×2 (13:21→21:49)
--- NOTE | 2019-07-26 17:16 | PN ---
Date of Progress Note: 07/26/2019 Subjective: Patient is awake, alert. Pain is better. Vital signs stable, afebrile. Dressing clean , dry, and intact. Assessment: Status post right below-knee amputation. Plan: Discharge planning in progress. Physical therapy and rehab evaluation. /MODL Voice ID: [id number] Report ID: [id number]
[2019-07-26] MEDS: EPOETIN 4,000 UNIT/ML VIAL IV SCH (18:03)
--- NOTE | 2019-07-26 20:04 | PN ---
Subjective: Mr. Koehler is doing well. Denies chest pain, nausea, vomiting. He has some coughing with brown sputum today. Physical Examination: Vital Signs: Blood pressure 100/74. Chest: Clear. Heart: Regular. Abdomen: Guarding. No rebound, no rigidity. Laboratory Examination: Hemoglobin down to 7.9. Potassium 5.5. Assessment And Plan: 1.Postop right below-knee amputation for severe Charcot joint, doing well. Pain is improving. 2.Renal failure, on dialysis. 3.Hyperkalemia, managed by naturopath. 4.Anemia. Hemoglobin 7.9. Transfuse 2 units of packed RBCs if okay with naturopath. We were try ing for rehab at this point [facility] or local rehab. MATEUS/QUINTIN Voice ID: [id number] Report ID: [id number]
[2019-07-26] MEDS: GABAPENTIN 300 MG CAP PO SCH (21:42)
[2019-07-26] MEDS: TAMSULOSIN 0.4 MG SR CAP PO SCH (21:42)
[2019-07-26] MEDS: AMOX/K CLAV 500 MG TAB PO SCH (21:42)
[2019-07-26] MEDS: ZOLPIDEM TARTRATE 10 MG TABLET PO SCH (21:43)
[2019-07-26 22:52] LABS: Hematocrit 28.9 % (39.6-49.0)
[2019-07-27] MEDS: MORPHINE 2 MG/ML SYR IV PRN ×3 (02:03→23:55)
[2019-07-27] MEDS: CYCLOBENZAPRINE 10 MG TAB PO PRN (02:58)
[2019-07-27 06:23] LABS: Absolute Lymphocytes (CBC) 1.1 K/uL (0.7-4.9); Basophils % 1.4 % (0-1.3); Hematocrit 29.5 % (39.6-49.0); MPV 7.2 fL (7.6-11.3); RBC Red Blood Cell Count 3.28 M/uL (4.33-5.43)
[2019-07-27 07:11] LABS: Albumin 2.3 g/dL (3.4-5.0); Magnesium 2.4 mg/dL (1.8-2.4); Phosphorus 4.8 mg/dL (2.5-4.9); Potassium 5.3 mmol/L (3.5-5.1)
[2019-07-27] MEDS: INSULIN -REGULAR HUMAN 50 UNIT/0.5 ML ML SQ SCH ×4 (07:30→21:54)
[2019-07-27] MEDS: BUMETANIDE 1 MG TABLET PO SCH ×2 (08:59→21:51)
[2019-07-27] MEDS: CA ACETATE 667 MG CAP PO SCH ×3 (08:59→16:14)
[2019-07-27] MEDS: THIAMINE HCL 100 MG TABLET PO SCH (08:59)
[2019-07-27] MEDS: PRASUGREL (EFFIENT) 10 MG TAB PO SCH (09:00)
[2019-07-27] MEDS: PREGABALIN 50 MG CAP PO SCH ×2 (09:00→21:53)
[2019-07-27] MEDS: ASPIRIN 81 MG CHEWABLE TABLET PO SCH (09:00)
[2019-07-27] MEDS: carvediloL 3.125 MG TAB PO SCH ×2 (09:00→21:53)
[2019-07-27] MEDS: HYDROCODONE/APAP 7.5/325 MG TAB PO PRN ×3 (09:00→22:58)
[2019-07-27] MEDS: INSULIN GLARGINE 100 UNITS/ML SQ SCH (09:01)
[2019-07-27] MEDS: AMOX/K CLAV 500 MG TAB PO SCH ×2 (09:06→21:53)
[2019-07-27] MEDS ORDERED: FENTANYL 25 MCG/PATCH TD ONE (09:09)
[2019-07-27] MEDS: AMLODIPINE 5 MG TAB PO SCH (13:07)
[2019-07-27] MEDS ORDERED: SOD POLYSTYREN SUL 15 GM/60 ML UCUP PO ONE (13:24)
--- NOTE | 2019-07-27 13:30 | P.PN ---
Subjective Date of Service: 07/27/19 Chief Complaint: R BKA YEST. Pt with ESRD on HD, presented for severe Rt foot pain S/P rt BKA Today no new complaints S/p 2prbc K 5.3 ,will give kaeyxalate BP elevated , will add amlodipine pending discharge to SNF Physical Examination - Vital Signs Temperature: 97 F Blood Pressure: 112/57 Pulse: 72 Respirations: 18 Pulse Ox (%): 90 - Physical Exam General: In no apparent distress, Oriented x3 HEENT: Atraumatic Neck: Supple, Without JVD or thyroid abnormality Respiratory: Clear to auscultation bilaterally, Normal air movement Cardiovascular: No edema, Regular rate/rhythm, Normal S1 S2, No gallops, No rubs , No murmurs Gastrointestinal: Normal bowel sounds, Soft and benign Musculoskeletal: Other (rt BKA ) - Studies Laboratory Data (last 24 hrs) 07/27/19 05:37: Sodium 139, Potassium 5.3 H, BUN 38 H, Creatinine 6.68 H* D, Glucose 126 H, Phosphorus 4.8, Magnesium 2.4 07/27/19 05:37: WBC 6.1, Hgb 10.1 L, Hct 29.5 L, Plt Count 272 07/26/19 22:32: Hgb 9.9 L, Hct 28.9 L D Medications List Reviewed: Yes Assessment And Plan - Plan End-stage renal disease on HD mWF HD MWF renal dose meds Acute on Chronic Anemia due to surgical blood loss Epogen increased S/p 2 PRBC MBD cont binders HTN elevated today will add amlodipine DM as per primary Charcot foot S/P amputation pain control Cont PT /OT
--- NOTE | 2019-07-27 16:47 | PN ---
Date of Progress Note: 07/27/2019 Subjective: Patient is awake, alert. No complaint. Objective: Vital Signs: Stable. Afebrile. Dressing clean, dry, and intact. Assessment: Status post right below-knee amputation. Recommendations: Discharge planning in progress. Continue physical therapy. We will check the woun d tomorrow. /MODL Voice ID: [id number] Report ID: [id number]
--- NOTE | 2019-07-27 16:48 | PN ---
Subjective: Mr. Koehler is doing good. Continues to have pain and right amputation site. Not rece iving any morphine. Physical Examination: Vital Signs: Blood pressure 124/79. Chest: Clear. Heart: Regular. Abdomen: No guarding, no rebound, no rigidity. Assessment And Plan: 1.Renal failure, on dialysis. 2.Right BKA done for severe Charcot joint with extreme pain uncontrolled and incurable even after alexis rgery. Most likely according to surgical opinions we took. Laboratory Examination: Hemoglobin is 10, hematocrit 29, stable. Potassium 5.3. He is on dialysis. Assessment And Plan: We are waiting for [facility] placement or at least rehab placement. [facility] is taking a long time to decide. Currently, pain management, medication management, and l ab review here on routine basis. MATEUS/MODL Voice ID: [id number] Report ID: [id number]
[2019-07-27] MEDS: GABAPENTIN 300 MG CAP PO SCH (21:53)
[2019-07-27] MEDS: TAMSULOSIN 0.4 MG SR CAP PO SCH (21:53)
[2019-07-27] MEDS: ZOLPIDEM TARTRATE 10 MG TABLET PO SCH (21:53)
[2019-07-28 06:12] LABS: Absolute Lymphocytes (CBC) 1.4 K/uL (0.7-4.9); Basophils % 1.7 % (0-1.3); Hematocrit 28.6 % (39.6-49.0); Lymphocytes % 21.1 % (15.3-44.8); MPV 7.5 fL (7.6-11.3); RBC Red Blood Cell Count 3.16 M/uL (4.33-5.43)
[2019-07-28 06:39] LABS: Albumin 2.3 g/dL (3.4-5.0); Magnesium 2.4 mg/dL (1.8-2.4); Phosphorus 5.9 mg/dL (2.5-4.9); Potassium 5.2 mmol/L (3.5-5.1)
[2019-07-28] MEDS: INSULIN -REGULAR HUMAN 50 UNIT/0.5 ML ML SQ SCH ×4 (07:30→21:26)
[2019-07-28] MEDS: ASPIRIN 81 MG CHEWABLE TABLET PO SCH (08:04)
[2019-07-28] MEDS: MORPHINE 2 MG/ML SYR IV PRN ×3 (08:04→23:17)
[2019-07-28] MEDS: BUMETANIDE 1 MG TABLET PO SCH ×2 (08:05→21:15)
[2019-07-28] MEDS: THIAMINE HCL 100 MG TABLET PO SCH (08:05)
[2019-07-28] MEDS: AMLODIPINE 5 MG TAB PO SCH (08:05)
[2019-07-28] MEDS: CA ACETATE 667 MG CAP PO SCH ×3 (08:05→17:38)
[2019-07-28] MEDS: carvediloL 3.125 MG TAB PO SCH ×2 (08:05→21:15)
[2019-07-28] MEDS: INSULIN GLARGINE 100 UNITS/ML SQ SCH (08:06)
[2019-07-28] MEDS: PREGABALIN 50 MG CAP PO SCH ×2 (08:13→21:15)
[2019-07-28] MEDS: PRASUGREL (EFFIENT) 10 MG TAB PO SCH (08:13)
[2019-07-28] MEDS: AMOX/K CLAV 500 MG TAB PO SCH ×2 (08:13→21:15)
--- NOTE | 2019-07-28 11:37 | P.PN ---
Subjective Date of Service: 07/28/19 Chief Complaint: R BKA YEST. Subjective: No new changes Pt with ESRD on HD, presented for severe Rt foot pain S/P rt BKA Today no new complaints HD tomorrow Bp acceptable now Pending Rehab acceptance likely to normalize after HD tomorrow Physical Examination - Vital Signs Temperature: 97.7 F Blood Pressure: 161/75 Pulse: 75 Respirations: 19 Pulse Ox (%): 91 - Physical Exam General: In no apparent distress, Oriented x3 HEENT: Atraumatic Neck: Supple, Without JVD or thyroid abnormality Respiratory: Clear to auscultation bilaterally, Normal air movement Cardiovascular: Normal pulses, Regular rate/rhythm, Normal S1 S2, No gallops, No rubs, No murmurs Gastrointestinal: Normal bowel sounds, Soft and benign Musculoskeletal: No swelling, Other (Rt leg BKA ) - Studies Laboratory Data (last 24 hrs) 07/28/19 05:20: Sodium 141, Potassium 5.2 H, BUN 56 H, Creatinine 8.75 H* D, Glucose 91, Phosphorus 5.9 H, Magnesium 2.4 07/28/19 05:20: WBC 6.5, Hgb 9.7 L, Hct 28.6 L, Plt Count 280 Medications List Reviewed: Yes Assessment And Plan - Plan End-stage renal disease on HD mWF HD MWF renal dose meds Acute on Chronic Anemia due to surgical blood loss Epogen increased S/p 2 PRBC MBD cont binders HTN acceptable now , likely to normalize after HD tomorrow DM as per primary Charcot foot S/P amputation pain control Cont PT /OT
--- NOTE | 2019-07-28 12:19 | PN ---
Date of Progress Note: 07/28/2019 Patient is awake, alert, no complaint. Vital signs stable, afebrile. Examination of the wound revea ls him to be clean, dry and intact. Some minimal drainage in the dressing itself however the wound i tself looks good. There is some mild erythema around it. No purulence. No tenderness. Assessment: Status post right below-knee amputation. Recommendations: We will convert to a [id number] dressing changes daily. Knee immobilizer as o rdered. Physical therapy and discharge planning. Patient is already on Augmentin for sinusitis which should cover any potential concern regarding the wound itself. /MODL Voice ID: [id number] Report ID: [id number]
[2019-07-28] MEDS: ZOLPIDEM TARTRATE 10 MG TABLET PO SCH (21:16)
[2019-07-28] MEDS: GABAPENTIN 300 MG CAP PO SCH (21:16)
[2019-07-28] MEDS: TAMSULOSIN 0.4 MG SR CAP PO SCH (21:26)
[2019-07-29 05:52] LABS: Albumin 2.4 g/dL (3.4-5.0); Phosphorus 6.1 mg/dL (2.5-4.9); Potassium 4.9 mmol/L (3.5-5.1)
[2019-07-29] MEDS: INSULIN -REGULAR HUMAN 50 UNIT/0.5 ML ML SQ SCH ×4 (07:30→21:23)
[2019-07-29] MEDS ORDERED: MAGNESIUM HYDROXIDE 8% 30 ML PO ONE (08:10)
[2019-07-29] MEDS: BUMETANIDE 1 MG TABLET PO SCH ×2 (09:00→21:20)
[2019-07-29] MEDS: carvediloL 3.125 MG TAB PO SCH ×2 (09:00→21:19)
[2019-07-29] MEDS: AMLODIPINE 5 MG TAB PO SCH (09:00)
[2019-07-29] MEDS: CA ACETATE 667 MG CAP PO SCH ×3 (09:27→17:19)
[2019-07-29] MEDS: AMOX/K CLAV 500 MG TAB PO SCH ×2 (09:28→21:23)
[2019-07-29] MEDS: THIAMINE HCL 100 MG TABLET PO SCH (09:28)
[2019-07-29] MEDS: PREGABALIN 50 MG CAP PO SCH ×2 (09:30→21:19)
[2019-07-29] MEDS: PRASUGREL (EFFIENT) 10 MG TAB PO SCH (09:30)
[2019-07-29] MEDS: ASPIRIN 81 MG CHEWABLE TABLET PO SCH (09:31)
[2019-07-29] MEDS: INSULIN GLARGINE 100 UNITS/ML SQ SCH (09:31)
[2019-07-29] MEDS: HYDROCODONE/APAP 7.5/325 MG TAB PO PRN ×3 (10:29→23:54)
[2019-07-29] MEDS: EPOETIN 4,000 UNIT/ML VIAL IV SCH (13:39)
--- NOTE | 2019-07-29 15:09 | PN ---
Date of Progress Note: 07/29/2019 Subjective: Patient is awake, alert. No complained. Vital signs stable. He is currently afebrile. Laboratory Data: Reviewed. White count is normal. H and H are stable. He does not have a left walt ft. His dressing is clean, dry, and intact. Assessment: Status post right below-knee amputation. Recommendations: Continue current management, physical therapy, rehab evaluation, discharge planning . Please note, the patient will follow up with me in the wound healing center upon discharge. /MODL Voice ID: [id number] Report ID: [id number]
[2019-07-29] MEDS ORDERED: ALBUTEROL 2.5 MG/3 ML NEB SOL NEB PRN (18:23)
[2019-07-29] MEDS: TAMSULOSIN 0.4 MG SR CAP PO SCH (21:18)
[2019-07-29] MEDS: ZOLPIDEM TARTRATE 10 MG TABLET PO SCH (21:19)
[2019-07-29] MEDS: GABAPENTIN 300 MG CAP PO SCH (21:20)
--- NOTE | 2019-07-29 23:48 | PN ---
Subjective: Patient is feeling better. Denies chest pain, nausea, or vomiting. Starting to ambulate with crutches and on 1 leg. Physical Examination: Vital Signs: Blood pressure 113/70, pulse is 75. Chest: Clear. Heart: Regular. Abdomen: No guarding, no rebound, no rigidity. Extremities: Patient had a right BKA for severe Charcot joint with intractable pain. Assessment And Plan: 1.Below-knee amputation. Continue OT and PT. 2.Diabetes and chronic kidney disease. Continue dialysis. 3.High blood pressure. Continue current medications. 4.Porphyria by history, currently stable. No rash visible. 5.Chronic pain management. He still needs morphine IV for pain. We are waiting for [facility] for transfer. Insurance company is now going to decide at their leisure. Prognosis is avery blake. MATEUS/QUINTIN Voice ID: [id number] Report ID: [id number]
--- NOTE | 2019-07-30 02:04 | PN ---
Date of Progress Note: 07/29/2019 Chief Complaint: End-stage renal disease, on dialysis. History Of Present Illness: Patient underwent right BKA. Patient is undergoing dialysis 3 times per week. Today, he has dialysis scheduled with ultrafiltration. Review of Systems: Denies fever, chills. Physical Examination: Lungs: Clear to auscultation bilaterally. Heart: S1, S2. Abdomen: Soft, benign. Extremities: Right BKA, dressing in place. Laboratory Data: Potassium 5.2, sodium 141, creatinine 8.76, glucose 91, hemoglobin 9.7, WBC 6.5. Impression And Plan: 1.End-stage renal disease. Dialysis will be done today with ultrafiltration to obtain metabolic sandy arance and negative fluid balance. Patient has generalized edema. Continue low-sodium diet, p.o. fl uid restriction. Monitor fluid balance. 2.Hyperphosphatemia. Phosphorus 6.1. Continue renal diet with low phosphorus diet and adjust binde rs as needed. 3.Hypertension. Blood pressure controlled. 4.Anemia in chronic kidney disease. Continue KEREN. 5.Status post below-knee amputation. Continue antibiotics. SUKHWINDER/MODL Voice ID: [id number] Report ID: [id number]
[2019-07-30] MEDS: INSULIN -REGULAR HUMAN 50 UNIT/0.5 ML ML SQ SCH ×2 (07:30→11:30)
[2019-07-30] MEDS: PRASUGREL (EFFIENT) 10 MG TAB PO SCH (09:12)
[2019-07-30] MEDS: CA ACETATE 667 MG CAP PO SCH (09:12)
[2019-07-30] MEDS: BUMETANIDE 1 MG TABLET PO SCH (09:13)
[2019-07-30] MEDS: ASPIRIN 81 MG CHEWABLE TABLET PO SCH (09:13)
[2019-07-30] MEDS: THIAMINE HCL 100 MG TABLET PO SCH (09:13)
[2019-07-30] MEDS: AMOX/K CLAV 500 MG TAB PO SCH (09:13)
[2019-07-30] MEDS: AMLODIPINE 5 MG TAB PO SCH (09:14)
[2019-07-30] MEDS: carvediloL 3.125 MG TAB PO SCH (09:14)
[2019-07-30] MEDS: INSULIN GLARGINE 100 UNITS/ML SQ SCH (09:23)
[2019-07-30] MEDS: PREGABALIN 50 MG CAP PO SCH (10:46)
[2019-07-30] MEDS: HYDROCODONE/APAP 7.5/325 MG TAB PO PRN (10:49)
[2019-07-30] MEDS ORDERED: CA ACETATE 667 MG CAP PO SCH (12:00)
[2019-07-30 12:46] VITALS: BP 127/60; TEMP 98
[2019-07-30 14:02] VITALS: O2SAT 94
--- NOTE | 2019-07-30 16:01 | PN ---
Date of Progress Note: 07/30/2019 Subjective: Patient was admitted with Charcot joint status post below-knee amputation, tolerated wel l on the right side. Patient participating in physical therapy. Physical Examination: Vital Signs: Blood pressure 157/71, pulse of 72. Chest: Faint rales on the left base. Heart: S1 and S2. Systolic murmur. Abdomen: Soft, nontender. Extremities: Right below-knee amputation. Left, trace edema. Laboratory Data: WBC 6.5, H and H of 9.7/28.6, platelets 280. Sodium 137, potassium 4.9, bicarb 29, BUN 72, creatinine 10.1, calcium 8.4, phosphorus 6.1, albumin 2.4. Current Medications: The patient on include: 1.Aspirin. 2.Augmentin. 3.Flomax. 4.Epogen. 5.Amlodipine. 6.Carvedilol. 7.Bumex. 8.PhosLo. 9.Loperamide. Assessment And Plan: 1.End-stage renal disease. We will continue the patient on dialysis Monday, Monday, Monday. Nisha velázquez is going to be due for dialysis tomorrow. 2.Secondary hyperparathyroidism. I am going to go ahead and increase PhosLo to 3 tablets. 3.Anemia of chronic kidney disease. Continue Epogen. 4.Hyperkalemia, resolved. 5.Charcot joint status post below-knee amputation. Continue PT/OT. Follow up with primary. 6.Diabetes, as by primary. SUSHANT/QUINTIN Voice ID: [id number] Report ID: [id number]
--- NOTE | 2019-07-30 21:49 | P.DS ---
Admission Date: 07/23/19 Discharge Date: 07/30/19 Disposition: TRANSFER TO INPATIENT REHAB Discharge Condition: FAIR Reason for Admission: R BKA YEST. - Problems (1) Charcot's joint of right foot Status: Chronic (2) Diabetic nephropathy Onset Date: 11/07/18 Status: Acute Qualifiers: Diabetes mellitus type: type 2 Qualified Code(s): E11.21 - Type 2 diabetes mellitus with diabetic nephropathy (3) CKD, patient preferred treatment modality peritoneal dialysis Onset Date: 07/17/18 Status: Chronic (4) Diabetes mellitus Status: Chronic Qualifiers: Diabetes mellitus type: type 2 Brief History of Present Illness: MR. LYLES HAS SEVERE CHARCOT JOINT ON R FOOT THAT HIS FOOT SEEMS TO HAVE CHANGED ANGLE IN THE MID FOOT AND ANY PRESSURE OR EVEN TOUGHING OR MOVING GIVES RISE TO SEVERE PAIN. HE HAS BEEN TO 3 FOOT SURGEONS AND HAS NO GOOD ANSWER FOR THIS. I HAD TOLD HIM BEFORE THAT NO ONE CAN FIX THIS FOOT TO A DEGREE THAT HE WILL BE REASONABLY PAIN FREE. ULCER ON R ANKLE IS FROM ALSO NEUROPATHIC DAMAGE AND IS GETTING WORSE DESPITE ALL EFFORTS. IF HE GOES FOR FOOT SURGERY FIRST THE ULCER HAS TO HEAL AND I DON'T BELIEVE IT WILL HEAL. EVEN AFTER THAT A COMPLICATED SURGERY AND THEN UNPREDICTABLE RECOVERY MAY TAKE YEARS. I DON'T THINK HE CAN SURVIVE WITH THAT MUCH PAIN FOR THAT LONG. I HAD ADVISED [facility] ABOUT A MONTH AGO AND HE HAS ACCEPTED IT TODAY. HIS I AND HIM TALKED ON THE PHONE. SHE UNDERSTOOD. SHE IS IN [place] FOR WORK. HE IS ALONE AT HOME. I CALLED DR. LOWERY AND ADMITTED HIM YESTERDAY AT 1 PM BUT HE CAME TO HOSPITAL AT 9 45 PM AFTER HEMODIALYSIS. Hospital Course: MR. LYLES UNDERWENT BKA FOR SEVERLY DAMAGED PAINFUL R FOOT AND ANKLE WITH CHARCOT JOINT AND NON HEALING ULCER. HE DID WELL WITH SURGERY. HE DECIDED TO GO FOR SURGERY THERE IS NO PAINFREE AND GUARANTEED OPTION AFTER REPAIR OF R FOOT. HE IS HAPPY AND REASONABLY PAINFREE NOW. HE HAS BEEN SENT TO REHAB FACILITY OF CHOICE. Vital Signs/Physical Exam: Temp Pulse Resp BP Pulse Ox 98.0 F 73 15 127/60 93 07/30/19 12:00 07/30/19 12:00 07/30/19 12:00 07/30/19 12:00 07/30/19 12:00 Laboratory Data at Discharge: WBC 6.5 K/uL (4.3-10.9) 07/28/19 05:20 Hgb 9.7 g/dL (13.6-17.9) L 07/28/19 05:20 Hct 28.6 % (39.6-49.0) L 07/28/19 05:20 Plt Count 280 K/uL (152-406) 07/28/19 05:20 PT 11.5 SECONDS (9.5-12.5) 07/22/19 23:21 INR 0.97 07/22/19 23:21 APTT 51.1 SECONDS (24.3-36.9) H 07/22/19 23:21 Sodium 137 mmol/L (136-145) 07/29/19 05:04 Potassium 4.9 mmol/L (3.5-5.1) 07/29/19 05:04 BUN 72 mg/dL (7-18) H 07/29/19 05:04 Creatinine 10.10 mg/dL (0.55-1.3) H* D 07/29/19 05:04 Glucose 84 mg/dL (74-106) 07/29/19 05:04 Phosphorus 6.1 mg/dL (2.5-4.9) H 07/29/19 05:04 Magnesium 2.4 mg/dL (1.8-2.4) 07/28/19 05:20 Total Bilirubin 0.3 mg/dL (0.2-1.0) 07/22/19 23:21 AST 17 U/L (15-37) 07/22/19 23:21 ALT 28 U/L (12-78) 07/22/19 23:21 Alkaline Phosphatase 237 U/L (45-117) H 07/22/19 23:21 Home Medications: Aspirin Chewable [Aspirin Chewable*] 81 mg PO DAILY 07/22/19 Bumetanide [Bumex*] 2 mg PO BID 07/22/19 Carvedilol [Coreg*] 6.25 mg PO BID 07/22/19 Gabapentin [Neurontin*] 300 mg PO BEDTIME 07/22/19 Insulin Glargine Human [Lantus*] 36 unit SQ DAILY 07/22/19 Prasugrel HCl 10 mg PO DAILY 07/22/19 Tamsulosin [Flomax*] 0.4 mg PO BEDTIME 07/22/19 Thiamine HCl [Vitamin B-1*] 100 mg PO DAILY 07/22/19 Zolpidem Tartrate [Ambien*] 10 mg PO BEDTIME 07/22/19 Calcium Acetate [Phoslo*] 667 mg PO SEECOM 07/23/19 Calcium Acetate [Phoslo] 2 cap PO TIDWM 07/23/19 Acetaminophen [Tylenol*] 650 mg PO Q6H PRN tab 07/30/19 Albuterol Neb [Proventil 0.083% Neb Soln] 2.5 mg NEB [id number] PRN amp 07/30/19 Amlodipine [Norvasc*] 5 mg PO DAILY tab 07/30/19 Enoxaparin Sodium [Lovenox 30 MG INJ*] 30 mg SQ DAILY syr 07/30/19 Insulin -Regular Human [Novolin -R*] See Protocol SQ ACHS ml 07/30/19 Diet: Renal Followup: Dante Best MD [ACTIVE - CAN ADMIT] - Bruno Lowery MD [ACTIVE - CAN ADMIT] -
--- OUTSIDE RECORDS SUMMARY | 2019-08-04 14:21 | XMS REPORT ---
:1960 [facility] Address [address] [place] [address] Dr. Hernandez [address] [place] [id number] Care Team Providers Name Role Phone Unavailable Unavailable Unavailable Problems This patient has no known problems. Allergies, Adverse Reactions, Alerts This patient has no known allergies or adverse reactions. Medications This patient has no known medications. Encounters Start End Encounter Admission Attending Care Care Encounter Date/Time Date/Time Type Type Clinicians Facility Department ID 2019-04-30 Outpatient [id number] 14:00:27 2019-03-04 Inpatient [facility] [id number] 17:21:00 2019-02-21 2019-02-21 Outpatient [id number] 11:31:00 11:31:00
== END 2019-07-30 13:59 | DRG 40 ==
LOC: 2ND 21:11 → OBSVTOIN 07-23 11:51
PROVIDERS: ADMIT Internal Medicine; ATTEND Internal Medicine
PROC: 0Y6H0Z1 Detachment at Right Lower Leg, High, Open Approach (ICD-10-PCS; principal; 2019-07-23 11:00)
PROC: 5A1D70Z Performance of Urinary Filtration, Intermittent, Less than 6 Hours Per Day (ICD-10-PCS; 2019-07-24)
PROC: 5A1D70Z Performance of Urinary Filtration, Intermittent, Less than 6 Hours Per Day (ICD-10-PCS; 2019-07-24)
PROC: 5A1D70Z Performance of Urinary Filtration, Intermittent, Less than 6 Hours Per Day (ICD-10-PCS; 2019-07-24)
DX: E11.610 Type 2 diabetes mellitus with diabetic neuropathic arthropathy (principal); N18.6 End stage renal disease; I12.0 Hypertensive chronic kidney disease with stage 5 chronic kidney disease or end stage renal disease; N25.81 Secondary hyperparathyroidism of renal origin; E80.20 Unspecified porphyria; E11.21 Type 2 diabetes mellitus with diabetic nephropathy; E11.22 Type 2 diabetes mellitus with diabetic chronic kidney disease; Z99.2 Dependence on renal dialysis; E87.5 Hyperkalemia; D64.9 Anemia, unspecified; I73.9 Peripheral vascular disease, unspecified; E11.621 Type 2 diabetes mellitus with foot ulcer; I25.10 Atherosclerotic heart disease of native coronary artery without angina pectoris; E78.5 Hyperlipidemia, unspecified
CPT/HCPCS: 36415; 71046; 80048; 80069; 80076; 81003; 81015; 82043; 82306; 82570; 82607; 82947; 83036; 83735; 84100; 84443; 85014; 85018; 85025; 85027; 85610; 85730; 86317; 86704; 86706; 86850; 86900; 86901; 87070; 87077; 87086; 87088; 87186; 87205; 88307; 90935; 93005; 97110; 97112; 97116; 97161; 97530; 97542; 99213; G0378; G0379; J0690; J1170; J1815; J2175; J2250; J2270; J2405; J2704; J3010; J7030; P9016

== ENCOUNTER 2020-03-05 08:56 | Day surgery (SDC) | payer BC, OTHER ==
[2020-03-03 15:08] LABS: Absolute Lymphocytes (CBC) 1.1 K/uL (0.7-4.9); Basophils % 1.2 % (0-1.3); Hematocrit 37.1 % (39.6-49.0); Lymphocytes % 14.1 % (15.3-44.8); MPV 7.6 fL (7.6-11.3); RBC Red Blood Cell Count 4.01 M/uL (4.33-5.43)
--- NOTE | 2020-03-03 15:18 | RAD REPORT ---
EXAM DESCRIPTION: RAD - Chest Pa And Lat (2 Views) - 03/03/2020 3:07 pm CLINICAL HISTORY: pre op, pending hernia repair COMPARISON: Two view chest June 2019 TECHNIQUE: Frontal and lateral views of the chest were obtained. FINDINGS: The lungs are clear. Heart size is normal and central vasculature is within normal limit s. No pleural effusion or pneumothorax seen. No acute bony finding noted. No aortic abnormality. IMPRESSION: No acute cardiopulmonary process. No significant changes from comparison.
[2020-03-03 15:38] LABS: Potassium 7.2 mmol/L (3.5-5.1)
[2020-03-05] MEDS ORDERED: CEFAZOLIN/SWI 1gm 1 GM/10 ML SYR ONE (09:22)
[2020-03-05] MEDS: NA CHLORIDE 0.9% 1,000 ML ONE (10:10)
[2020-03-05] MEDS ORDERED: propofoL 200 MG/20 ML VIAL IV ONE (10:22)
[2020-03-05] MEDS ORDERED: MIDAZOLAM HCL 2 MG/2 ML INJ ONE (10:23)
[2020-03-05] MEDS ORDERED: LIDOCAINE 2% MPF 5 ML VIAL ONE (10:23)
[2020-03-05] MEDS ORDERED: dexAMETHasone 10 MG/ML VIAL ONE (10:23)
[2020-03-05] MEDS ORDERED: FENTANYL CITR 100 MCG/2 ML ONE (10:23)
--- OUTSIDE RECORDS SUMMARY | 2020-03-05 10:39 | XMS REPORT | Clinical Summary ---
:1960 Author Organization [facility] Address [address] [place] [address] Care Team Providers Name Role Phone MD Estephania Primary Care Provider Allergies No Known Allergies Medications Medication Sig Dispensed Refills Start End Date Status Date INSULIN Inject 35 Units 0 Acti ve GLARGINE,HUM.REC. under the skin ANLOG (LANTUS daily. SUBQ) BUMETanide Take 2 mg by 0 Active (BUMEX) 2 MG mouth daily. tablet fluticasone 2 sprays (100 15.8 mL 0 Acti ve (FLONASE) 50 mcg total) by 8 mcg/actuation Each Nare route nasal spray daily. L. Take 2 capsules 1 capsule 1 Acti ve acidophilus,casei by mouth daily. 8 ,rhamnosus (BIO K PLUS) 50 billion cell capsule,delayed release(DR/EC) capsule tamsulosin Take 1 capsule 1 capsule 3 Acti ve (FLOMAX) 0.4 mg (0.4 mg total) 8 capsule by mouth daily. aspirin (ECOTRIN) Take 81 mg by 0 Active 81 MG enteric mouth daily. coated tablet zolpidem (AMBIEN) Take 10 mg by 0 Active 5 MG tablet mouth nightly as needed for sleep. pregabalin Take 25 mg by 0 Activ e (LYRICA) 25 MG mouth 2 (two) capsule times a day. losartan (COZAAR) Take 100 mg by 0 Active 100 MG tablet mouth daily. nitroglycerin Place 0.4 mg 0 Act katy (NITROSTAT) 0.4 under the tongue MG SL tablet every 5 (five) minutes as needed for chest pain. albuterol (PROAIR ProAir HFA 90 0 Active HFA) 90 mcg/actuation mcg/actuation aerosol inhaler inhaler lactulose lactulose 10 0 Active (CHRONULAC) 10 gram/15 mL oral 8 gram/15 mL solution solution VIOS AEROSOL See Admin 0 Active DELIVERY SYSTEM Instructions. 9 device prasugrel Take 1 tablet 30 tablet 11 Active (EFFIENT) 10 mg (10 mg total) by 9 tablet mouth daily for 30 days. gabapentin Take 300 mg by 0 Acti ve (NEURONTIN) 300 mouth nightly. mg capsule acetaminophen-cod TK 1 T PO BID 1 Active eine (TYLENOL PRF JOINT PAIN 9 WITH CODEINE #3) 300-30 mg per tablet atorvastatin atorvastatin 10 0 A ctive (LIPITOR) 10 MG mg tablet tablet clopidogrel clopidogrel 75 0 Act katy (PLAVIX) 75 mg mg tablet tablet NIFEdipine XL Take 1 tablet 30 tablet 3 06/14/20 Di scontinued (PROCARDIA XL) 30 (30 mg total) by 8 19 (Stop Taking at MG 24 hr tablet mouth daily. D ischarge) thiamine 50 MG Take 1 tablet 30 tablet 3 09/19/20 E xpired tablet (50 mg total) by 8 19 mouth daily. carvedilol Take 6.25 mg by 0 06/14/20 Dis continued (COREG) 6.25 MG mouth 2 (two) 19 (Stop Taking at tablet times a day with Dis charge) meals. doxycycline Take 100 mg by 0 06/14/20 Dis continued (VIBRAMYCIN) 100 mouth 2 (two) 19 (Stop Taking at MG oral dosage times a day. Di scharge) form carvedilol Take 1 tablet 60 tablet 0 07/14/20 Expir ed (COREG) 12.5 MG (12.5 mg total) 9 19 tablet by mouth 2 (two) times a day with meals for 30 days. NIFEdipine XL Take 1 tablet 30 tablet 0 07/15/20 Ex pired (PROCARDIA XL) 60 (60 mg total) by 9 19 MG 24 hr tablet mouth daily for 30 days. ascorbic acid, Take 1 tablet 30 tablet 0 07/15/20 E xpired vitamin C, (500 mg total) 9 19 (VITAMIN C) 500 by mouth daily MG tablet for 30 days. docusate sodium Take 1 capsule 60 capsule 0 07/14/20 (COLACE) 100 MG (100 mg total) 9 19 capsule by mouth 2 (two) times a day for 30 days. polyethylene Take 17 g by 30 packet 0 07/15/20 Expi red glycol (MIRALAX) mouth daily for 9 19 17 gram packet 30 days. sevelamer Take 3 tablets 270 tablet 0 07/14/20 Expi red (RENVELA) 800 mg (2,400 mg total) 9 19 tablet by mouth 3 (three) times a day with meals for 30 days. zinc sulfate Take 1 capsule 60 capsule 0 07/14/20 E xpired (ZINCATE) 220 (220 mg total) 9 19 (50) mg capsule by mouth 2 (two) times a day for 30 days. HYDROcodone-aceta Take 1 tablet by 20 tablet 0 06/19 minophen (NORCO) mouth every 6 9 19 5-325 mg per (six) hours as tabletIndications needed for : acute pain moderate pain for up to 5 days .Acute Pain. Max Daily Amount: 4 tablets Active Problems Problem Noted Date Charcot ankle, right 07/09/2019 Non-healing ulcer of ankle, right, with necrosis of gadiel ne 2019 Mood disorder due to a general medical condition 10/25 Dyspnea 09/04/2018 SABAS (obstructive sleep apnea) 09/04/2018 COPD (chronic obstructive pulmonary disease) with acut e bronchitis 09/04/2018 Pneumonia 08/23/2018 Encephalopathy 07/23/2018 History of blood transfusion Overview: in July-2016. Wears glasses Never exercises Immunizations up to date ESRD (end stage renal disease) on dialysis Encounters Date Type Specialty Care Team Description 01/15/2020 Abstract Transplant Andreina Whyte, JAYDE 12/24/2019 Telephone Transplant Juju Pittman Appointment (14:57pm Called pt to cancel the r est of his appts on 12/26/2019 due to COVID-19. Told pt appts will be r /s after March 09, 2020. ) 12/23/2019 Telephone Transplant Juju Pittman Appointment (12:10pm Pt abimael led re: appt on 12/26/2019. Alex d him I will have to cancel appt for SW/Nephrology o n 12/26/2019 due to COVID-19.) 12/06/2019 Documentation Transplant Juju Pittman Itinerary (Itinerary emailed/mailed and scanned in medi a. ) 11/25/2019 Telephone Transplant Juju Pittman Appointment (10:04am Sp w/p t re: appt schedu led on 12/26/19. Pt confirmed appts and will email/mail itinerary next week. ) 11/25/2019 Telephone Transplant Juju Pittman Appointment (09:33am left messgae to rand meek my call to mary love follow up appointments. ) 11/18/2019 Documentation Transplant Juju Pittman Kidney Eval (Cardio clearance 11/12 & cardio consul t 10/17/19 scanne d in media. ) 11/12/2019 Orders Only Transplant Lolly, ESRD (end stage JAYDE Mercer renal disease) ([facility]) 11/05/2019 Hospital Encounter Procedural Beatriz Xie ESRD (end stage Cardiology MD Aamir renal disease) ([facility]) 10/29/2019 Documentation Transplant Juju Pittman Itinerary (Itinerary for echo emailed and sca nned in media. ) 10/28/2019 Telephone Transplant Juju Pittman Echo appoint ment (14:13pm Called pt letting him tomy cooleys m e to schedule an ech o. Pt requested 11/05/19 to do echo. Pt schedu le on 11/05/19 @10 am. Pt confirmed. Emailing gumaro boyer this week to pt . ) 10/18/2019 Orders Only Transplant Lolly, ESRD (end stage JAYDE Mercer renal disease) ([facility]) (Primary Dx) 10/08/2019 Abstract Transplant Sylvie Ambrocio RN 10/04/2019 Telephone Transplant Gene, Waitlist Status SUSHANT Flores Update 07/09/2019 Office Visit Orthopedic Surgery Miguelito Dixon Right ankle pain, unspecified chronicity (Primary Dx); MD Aashish Right foot pain ; Charcot ankle, right 06/18/2019 Patient Outreach Quality Sujey MonroeEJ 06/13/2019 Anesthesia Event General Surgery Fred Francisco MD McGhee, Myra N., FILL TECHNICIAN 06/13/2019 Surgery General Surgery Alexa, Francescalarsmartin, RIGHT BRIDGET SARAVIA MD EXTREMITY ANGIO GRAM WITH BALLOON ANGIOPLASTY. 2019 - Hospital Encounter General Internal Ludwig Escobar No n-healing ulcer of ankle, right, with necrosis of bone (HCC) (Primary Dx); 06/14/2019 Medicine MD Rene Whittington III's joint of ankle, right; José Hickman Arm pain; P.MD Arm swelling Garcia Varner MD 2019 Travel 04/26/2019 Documentation Transplant Fausto Rocha RN after 03/05/2019 Immunizations Name Administration Dates Next Due FLUCELVAX QUAD PF 08/09/2018 Family History Medical History Relation Name Comments Diabetes Brother Cirrhosis Brother Diabetes Brother Heart disease Father Hypertension Father Stroke Father Diabetes Mother Hypertension Mother Kidney disease Mother Relation Name Status Comments Brother Brother Alive Brother Father Mother Social History Tobacco Use Types Packs/Day Years Used Date Former Smoker Cigarettes 0.25 Quit: 01/24/20 16 Smokeless Tobacco: Never Used Alcohol Use Drinks/Week oz/Week Comments Yes 4 Glasses of wine 4.0 stopped in jul. Sex Assigned at Date Recorded Not on file Job Start Date Occupation Industry Not on file Not on file Not on file Travel History Travel Start Travel End No recent travel history available. Last Filed Vital Signs Vital Sign Reading Time Taken Comments Blood Pressure 156/67 07/09/2019 9:37 AM CDT Pulse 68 07/09/2019 9:37 AM CDT Temperature 36.2 C (97.2 F) 06/14/2019 12:49 PM CDT Respiratory Rate 16 06/14/2019 12:49 PM CDT Oxygen Saturation 93% 06/14/2019 12:49 PM CDT Inhaled Oxygen Concentration - - Weight 91.6 kg (202 lb) 07/09/2019 9:37 AM CDT Height 172.7 cm (5' 8") 07/09/2019 9:37 AM CDT Body Mass Index 30.71 07/09/2019 9:37 AM CDT Plan of Treatment Date Type Specialty Care Team Description 03/26/2020 Lab Transplant Trino Lackey MD [address] [place], [place] [address] [phone] 03/26/2020 Social Work Transplant RojasAndrewsfabi Shannon ma, MD [address] [place], [place] [address] [phone] 03/26/2020 Office Visit Transplant 03/26/2020 Appointment Radiology Trino Lackey MD [address] [place], [place] [address] [phone] 03/26/2020 Appointment Pulmonology Trino Lackey MD [address] [place], [place] [address] [phone] Health Maintenance Due Date Last Done Comments COLONOSCOPY SCREENING 2009 SHINGLES VACCINES (#1) 2009 INFLUENZA VACCINE 04/25/2020 08/09/2018 Implants Implanted Type Area Sex Worker Or Escort Device Shelf Model / Identifier Expiration Serial / Date Lot Catheter Dialysis Glidepath [id number] Symmetric Tip - [id number] Central N/A: BARD PERIPHERAL [id number] / Implanted: 09/17/2018 at [facility] (Quantity not on file) Ve nous N/A VASCULAR / Catheters Stent Coronary Syst Synergy (Mr) 3.00mm X 12mm - [id number] Coronary N/A: BSC 04/03/2020 [id number] / Implanted: Qty: 1 on 08/01/2018 by Adonay Leal MD at [facility] Stents N/A INTERVENTIONAL / CARDIOLOGY [id number] Description:2300 Gauss Xience Radha Everolimus Eluting Coronar y Stent System 3.00 Mm X 15 Mm / Rapid- Exchange - [id number] [facility] STENTS 155 [id number] 15 / Implanted: Qty: 1 on 11/02/2018 by Jossue Doe MD [facility] / Description:3000 Gauss Xience Radha Everolimus Eluting Coronar y Stent System 2.75 Mm X 15 Mm / Rapid- Exchange - [id number] [facility] STENTS 155 [id number] 15 / Implanted: Qty: 1 on 11/02/2018 by Jossue Doe MD at [facility] / Description:3000 Gauss Manoj Stylet Stylet / N/A: N/A MEDIONICS 07/24/2021 [id number] / Implanted: Qty: 1 on 11/07/2017 by Julio Roman MD at [facility] [employer] [id number] / [id number] Catheter 19.5cm Peritoneal Dialysis Extended - [id number] Surgical N/A: N/A 08/24/2022 SNPS [id number] / Implanted: 11/07/2017 at [facility] (Quantity not on file) Implants ; / Expanders; [id number] Extenders; Surgical Wires Procedures Procedure Name Priority Date/Time Associated Comments Diagnosis TTE COMPLETE, WO Routine 11/05/2019 11:36 ESRD (end stage Resu lts for this CONTRAST, W DOPPLER AM SEASONAL DRIVER renal disease) proced ure are in (17096) ([facility]) the results section. XR FOOT 3+ VW RIGHT Routine 07/09/2019 10:28 Right foot pain R esults for this AM CDT procedure are i n the results section. XR ANKLE 3+ VW RIGHT Routine 07/09/2019 10:28 Right ankle pain , Results for this AM CDT unspecified procedure are i n chronicity the results section. POC GLUCOSE Routine 06/14/2019 12:52 Results for this PM CDT procedure are i n the results section. HEMODIALYSIS Routine 06/14/2019 10:47 AM CDT HEMODIALYSIS Routine 06/14/2019 6:52 AM CDT POC GLUCOSE Routine 06/14/2019 6:24 Results for this AM CDT procedure are i n the results section. ESTIMATED GFR Routine 06/14/2019 6:00 Results fo r this AM CDT procedure are i n the results section. HC COMPLETE BLD COUNT Routine 06/14/2019 6:00 Re sults for this W/AUTO DIFF AM CDT procedure are i n the results section. VANCOMYCIN LEVEL, Routine 06/14/2019 6:00 Result s for this RANDOM AM CDT procedure are i n the results section. BASIC METABOLIC PANEL Routine 06/14/2019 6:00 Re sults for this AM CDT procedure are i n the results section. POC GLUCOSE Routine 06/13/2019 8:59 Results for this PM CDT procedure are i n the results section. POC GLUCOSE Routine 06/13/2019 5:18 Results for this PM CDT procedure are i n the results section. POC GLUCOSE Routine 06/13/2019 12:05 Results for this PM CDT procedure are i n the results section. OR FL < 1 HOUR Routine 06/13/2019 11:41 Results f or this AM CDT procedure are i n the results section. POC GLUCOSE Routine 06/13/2019 10:10 Results for this AM CDT procedure are i n the results section. POC GLUCOSE Routine 06/13/2019 9:57 Results for this AM CDT procedure are i n the results section. POC GLUCOSE Routine 06/13/2019 9:25 Results for this AM CDT procedure are i n the results section. POC GLUCOSE Routine 06/13/2019 9:24 Results for this AM CDT procedure are i n the results section. OK AN ELECTIVE Routine 06/13/2019 7:57 Results f or this SUPRAGLOTTIC AIRWAY AM CDT procedur e are in the results section. POC GLUCOSE Routine 06/13/2019 6:07 Results for this AM CDT procedure are i n the results section. ESTIMATED GFR Routine 06/13/2019 5:10 Results fo r this AM CDT procedure are i n the results section. PROTHROMBIN TIME WITH Routine 06/13/2019 5:10 Re sults for this INR AM CDT procedure are i n the results section. CBC HEMOGRAM Routine 06/13/2019 5:10 Results for this AM CDT procedure are i n the results section. BASIC METABOLIC PANEL Routine 06/13/2019 5:10 Re sults for this AM CDT procedure are i n the results section. POC GLUCOSE Routine 06/12/2019 8:54 Results for this PM CDT procedure are i n the results section. POC GLUCOSE Routine 06/12/2019 5:29 Results for this PM CDT procedure are i n the results section. POC GLUCOSE Routine 06/12/2019 10:51 Results for this AM CDT procedure are i n the results section. POC GLUCOSE Routine 06/12/2019 5:59 Results for this AM CDT procedure are i n the results section. ESTIMATED GFR Routine 06/12/2019 4:30 Results fo r this AM CDT procedure are i n the results section. CBC HEMOGRAM Routine 06/12/2019 4:30 Results for this AM CDT procedure are i n the results section. BASIC METABOLIC PANEL Routine 06/12/2019 4:30 Re sults for this AM CDT procedure are i n the results section. VANCOMYCIN LEVEL, Routine 06/12/2019 4:30 Result s for this RANDOM AM CDT procedure are i n the results section. HEMODIALYSIS Routine 06/11/2019 10:06 PM CDT POC GLUCOSE Routine 06/11/2019 9:21 Results for this PM CDT procedure are i n the results section. XR CHEST 1 VW PORTABLE STAT 06/11/2019 7:36 R esults for this PM CDT procedure are i n the results section. POC GLUCOSE Routine 06/11/2019 4:35 Results for this PM CDT procedure are i n the results section. POC GLUCOSE Routine 06/11/2019 10:49 Results for this AM CDT procedure are i n the results section. HC COMPLETE BLD COUNT Routine 06/11/2019 6:10 Re sults for this W/AUTO DIFF AM CDT procedure are i n the results section. POC GLUCOSE Routine 06/11/2019 5:59 Results for this AM CDT procedure are i n the results section. POC GLUCOSE Routine 06/10/2019 9:06 Results for this PM CDT procedure are i n the results section. GRAM STAIN Routine 06/10/2019 4:45 Results for this PM CDT procedure are i n the results section. AEROBIC CULTURE Routine 06/10/2019 4:45 Results for this PM CDT procedure are i n the results section. POC GLUCOSE Routine 06/10/2019 1:04 Results for this PM CDT procedure are i n the results section. POC GLUCOSE Routine 06/10/2019 12:29 Results for this PM CDT procedure are i n the results section. POTASSIUM LEVEL Routine 06/10/2019 11:31 Results for this AM CDT procedure are i n the results section. POC GLUCOSE Routine 06/10/2019 7:44 Results for this AM CDT procedure are i n the results section. POC GLUCOSE Routine 06/10/2019 6:28 Results for this AM CDT procedure are i n the results section. PROTHROMBIN TIME WITH Routine 06/10/2019 4:30 Re sults for this INR AM CDT procedure are i n the results section. ESTIMATED GFR Routine 06/10/2019 4:30 Results fo r this AM CDT procedure are i n the results section. TYPE AND SCREEN Routine 06/10/2019 4:30 Results for this AM CDT procedure are i n the results section. BASIC METABOLIC PANEL Routine 06/10/2019 4:30 Re sults for this AM CDT procedure are i n the results section. HC COMPLETE BLD COUNT Routine 06/10/2019 4:30 Re sults for this W/AUTO DIFF AM CDT procedure are i n the results section. SEDIMENTATION RATE Routine 06/10/2019 4:30 Resul ts for this AM CDT procedure are i n the results section. VANCOMYCIN LEVEL, Routine 06/10/2019 4:30 Result s for this RANDOM AM CDT procedure are i n the results section. POC GLUCOSE Routine 06/09/2019 9:17 Results for this PM CDT procedure are i n the results section. MRI FOOT WO CONTRAST Routine 06/09/2019 8:50 Res ults for this RIGHT PM CDT procedure are i n the results section. MRI ANKLE WO CONTRAST Routine 06/09/2019 8:50 Re sults for this RIGHT PM CDT procedure are i n the results section. POC GLUCOSE Routine 06/09/2019 6:00 Results for this PM CDT procedure are i n the results section. POC GLUCOSE Routine 06/09/2019 5:13 Results for this PM CDT procedure are i n the results section. POC GLUCOSE Routine 06/09/2019 11:21 Results for this AM CDT procedure are i n the results section. HEMODIALYSIS Routine 06/09/2019 9:44 AM CDT POC GLUCOSE Routine 06/09/2019 6:25 Results for this AM CDT procedure are i n the results section. ESTIMATED GFR Routine 06/09/2019 5:25 Results fo r this AM CDT procedure are i n the results section. BASIC METABOLIC PANEL Routine 06/09/2019 5:25 Re sults for this AM CDT procedure are i n the results section. HC COMPLETE BLD COUNT Routine 06/09/2019 5:25 Re sults for this W/AUTO DIFF AM CDT procedure are i n the results section. POC GLUCOSE Routine 06/08/2019 8:23 Results for this PM CDT procedure are i n the results section. POC GLUCOSE Routine 06/08/2019 5:02 Results for this PM CDT procedure are i n the results section. POC GLUCOSE Routine 06/08/2019 11:09 Results for this AM CDT procedure are i n the results section. US DUPLEX ARTERIAL Routine 06/08/2019 10:20 Resul ts for this LOWER EXTREMITY RIGHT AM CDT proced ure are in the results section. CT LOWER EXTREMITY WO Routine 06/08/2019 9:52 Re sults for this CONTRAST RIGHT AM CDT procedure are in the results section. POC GLUCOSE Routine 06/08/2019 5:52 Results for this AM CDT procedure are i n the results section. ESTIMATED GFR Routine 06/08/2019 4:43 Results fo r this AM CDT procedure are i n the results section. IONIZED CALCIUM Routine 06/08/2019 4:43 Results for this AM CDT procedure are i n the results section. PHOSPHORUS LEVEL Routine 06/08/2019 4:43 Results for this AM CDT procedure are i n the results section. MAGNESIUM LEVEL Routine 06/08/2019 4:43 Results for this AM CDT procedure are i n the results section. COMPREHENSIVE METABOLIC Routine 06/08/2019 4:43 Results for this PANEL AM CDT procedure are i n the results section. HC COMPLETE BLD COUNT Routine 06/08/2019 4:43 Re sults for this W/AUTO DIFF AM CDT procedure are i n the results section. POC GLUCOSE Routine 06/07/2019 9:16 Results for this PM CDT procedure are i n the results section. HEPATITIS B CORE Routine 06/07/2019 7:40 Results for this ANTIBODY TOTAL PM CDT procedure are in the results section. HEPATITIS B SURFACE AB, Routine 06/07/2019 7:40 Results for this QUANTITATIVE PM CDT procedure are i n the results section. HEPATITIS B SURFACE Routine 06/07/2019 7:40 Resu lts for this ANTIGEN PM CDT procedure are i n the results section. HEMODIALYSIS Routine 06/07/2019 6:19 PM CDT POC GLUCOSE Routine 06/07/2019 5:06 Results for this PM CDT procedure are i n the results section. IR TUNNELED DIALYSIS Routine 06/07/2019 2:38 Res ults for this CATHETER REMOVAL PM CDT procedure a re in the results section. US DUPLEX VENOUS UPPER Routine 06/07/2019 11:19 Arm pain Results for this EXTREMITY RIGHT AM CDT Arm swelling procedure ar e in the results section. POC GLUCOSE Routine 06/07/2019 11:10 Results for this AM CDT procedure are i n the results section. US DUPLEX VENOUS UPPER Routine 06/07/2019 5:30 R esults for this EXTREMITY RIGHT AM CDT procedure ar e in the results section. POC GLUCOSE Routine 06/07/2019 5:24 Results for this AM CDT procedure are i n the results section. PROTHROMBIN TIME WITH Routine 06/07/2019 4:58 Re sults for this INR AM CDT procedure are i n the results section. ESTIMATED GFR Routine 06/07/2019 4:58 Results fo r this AM CDT procedure are i n the results section. HEMOGLOBIN A1C Routine 06/07/2019 4:58 Results f or this AM CDT procedure are i n the results section. IONIZED CALCIUM Routine 06/07/2019 4:58 Results for this AM CDT procedure are i n the results section. PHOSPHORUS LEVEL Routine 06/07/2019 4:58 Results for this AM CDT procedure are i n the results section. MAGNESIUM LEVEL Routine 06/07/2019 4:58 Results for this AM CDT procedure are i n the results section. COMPREHENSIVE METABOLIC Routine 06/07/2019 4:58 Results for this PANEL AM CDT procedure are i n the results section. HC COMPLETE BLD COUNT Routine 06/07/2019 4:58 Re sults for this W/AUTO DIFF AM CDT procedure are i n the results section. POC GLUCOSE Routine 06/06/2019 8:11 Results for this PM CDT procedure are i n the results section. POC GLUCOSE Routine 06/06/2019 5:14 Results for this PM CDT procedure are i n the results section. XR CHEST 1 VW PORTABLE Routine 06/06/2019 12:41 R esults for this PM CDT procedure are i n the results section. POC GLUCOSE Routine 06/06/2019 12:08 Results for this PM CDT procedure are i n the results section. CONSULT TO OSTOMY CARE Routine 06/06/2019 6:59 NURSE AM CDT XR FOOT 2 VW RIGHT STAT 06/06/2019 5:31 Resul ts for this AM CDT procedure are i n the results section. ESTIMATED GFR Routine 06/06/2019 5:29 Results fo r this AM CDT procedure are i n the results section. IONIZED CALCIUM Routine 06/06/2019 5:29 Results for this AM CDT procedure are i n the results section. PHOSPHORUS LEVEL Routine 06/06/2019 5:29 Results for this AM CDT procedure are i n the results section. MAGNESIUM LEVEL Routine 06/06/2019 5:29 Results for this AM CDT procedure are i n the results section. COMPREHENSIVE METABOLIC Routine 06/06/2019 5:29 Results for this PANEL AM CDT procedure are i n the results section. HC COMPLETE BLD COUNT Routine 06/06/2019 5:29 Re sults for this W/AUTO DIFF AM CDT procedure are i n the results section. LACTIC ACID LEVEL Routine 2019 10:00 Result s for this PM CDT procedure are i n the results section. BLOOD CULTURE, AEROBIC Routine 2019 10:00 R esults for this & ANAEROBIC PM CDT procedure are i n the results section. ECG ED PRELIMINARY Routine 2019 9:38 Resul ts for this INTERPRETATION PM CDT procedure are in the results section. ECG 12-LEAD STAT 2019 9:10 Results for this PM CDT procedure are i n the results section. ESTIMATED GFR STAT 2019 8:55 Results fo r this PM CDT procedure are i n the results section. COMPREHENSIVE METABOLIC STAT 2019 8:55 Results for this PANEL PM CDT procedure are i n the results section. HC COMPLETE BLD COUNT STAT 2019 8:55 Re sults for this W/AUTO DIFF PM CDT procedure are i n the results section. BLOOD CULTURE, AEROBIC Routine 2019 8:55 R esults for this & ANAEROBIC PM CDT procedure are i n the results section. after 03/05/2019 Results Echocardiogram complete w contrast and 3D if needed (11/05/2019 11:36 AM SEASONAL DRIVER) Specimen Narrative Performed At [facility] Echo cardiography Report [id number], [place] [address], [place] [address] Pat.Name: TRUPTI MARNIE Christo Pat.ID: [id number] .Date: 11/05/2019 Refer.MD: BEATRIZ XIE Exam Time: 10:23:00 AM Study Type:Ro utine Echo Height: 69in Weight: 202lb BSA: 2.08 m2 Ag e: 1960,59Y Sex: MALE BP: 178/77 HR: 65 bpm Sonogrphr: Marielos Middleton, WONG, Kelley sher, Student Pat. Stat.:Outpatient Study Status :Final Echo Event ID:[id number] Order ID: [id number] Reason for Study:Renal Transplant Evalua tion History / Clinical:Diabetes, Hypertensio n Procedures: 2D Echo, Colorflow Doppler, Strain Race: C SUMMARY: LV EF is normal. Estimated EF is 55-59 %. RV systolic function is normal. FINDINGS: LV: LV size is normal. LV EF is normal. Overall wall motion is normal. Estimated EF is 55-59%. RV: RV size is normal. RV systo lic function is normal. LA: LA volume is mildly enlarge d. RA: RA volume is normal. A Eust achian valve and/or Chiari network is seen. This i s a normal variant. AO: Aortic root diameter is nor mal. VANI: No pericardial effusion. AV: No structural AV abnormalit ies noted. MV: Focal calcification of mitr al leaflets. A trace of mitral regurgitation. PV: No structural PV abnormalit ies noted. TV: No structural TV abnormalit ies noted. Mild tricuspid regurgitation Werner: LV relaxation is impaired. L V filling pressure is elevated. Other: Insufficient TR jet to estim ate PA systolic pressure. MEASUREMENTS: 2D Parasternal Long [place] Ao An 1.8 cm LVPWd 1.1 cm Ao Rtd 3.5 cm Index 1.7 cm/m2 LA Ds 5 cm IVSd 1.2 cm RWT 0.42 LVIDd 5.3 cm Index 2.5 cm/m2 LV Mass 242 g (122-1 74) LVIDs 3.3 cm LVM In dex 116 g/m LV%fs 38 % LVOT 1.8 cm LA Sng Plane LA Area 24 cm (8.8-23.4) LA Vol 76 ml Index 36 ml/m2 LA LngAx 6.4 cm LVOT LVOT Area 2.7 cm DOPPLER LVOT Stroke Vol LVOT TVI 33 cm HR 65 bpm LVOT LVOT SV 87 ml LVOT CO 5.6 l/min SVi 42 ml/m LVOT C I 2.7 l/m/m Signed 11/06/2019 05:34 PM Kp Steinberg M.D. Procedure Note Interface, Radiology Results In - 2019 5:35 PM [facility] Echocardiography Report [id number] [place] [id number] Pat.Name: MARNIE LYLES Pat.I D: [id number] St.Date: 11/05/2019 Refer .MD: BEATRIZ XIE Exam Time: 10:23:00 AM Study Type:Routine Echo Height: 69in Weigh t: 202lb BSA: 2.08 m2 Age: 9 1960,59Y Sex: MALE BP: 178/77 HR: 65 bpm Sonogrphr: Marielos [place] [facility], Kelley sher, Student Pat. Stat.:Outpatient Study Status:Final Echo Event ID:[id number] Order ID: [id number] Reason for Study:Renal Transplant Evalua tion History / Clinical:Diabetes, Hypertensio n Procedures: 2D Echo, Colorflow Doppler, Strain Race: C SUMMARY: LV EF is normal. Estimated EF is 55-59% . RV systolic function is normal. FINDINGS: LV: LV size is normal. LV EF is no rmal. Overall wall motion is normal. Estimated EF is 55-59 %. RV: RV size is normal. RV systolic function is normal. LA: LA volume is mildly enlarged. RA: RA volume is normal. A Eustach pato valve and/or Chiari network is seen. This is a no rmal variant. AO: Aortic root diameter is normal . VANI: No pericardial effusion. AV: No structural AV abnormalities noted. MV: Focal calcification of mitral leaflets. A trace of mitral regurgitation. PV: No structural PV abnormalities noted. TV: No structural TV abnormalities noted. Mild tricuspid regurgitation Werner: LV relaxation is impaired. LV filling pressure is elevated. Other: Insufficient TR jet to estimat e PA systolic pressure. MEASUREMENTS: 2D Parasternal Long [place] Ao An 1.8 cm LVPW d 1.1 cm Ao Rtd 3.5 cm Inde x 1.7 cm/m2 LA Ds 5 cm IVSd 1.2 cm RWT 0.42 LVIDd 5.3 cm Inde x 2.5 cm/m2 LV Mass 242 g (122-174) LVIDs 3.3 cm LVM Index 116 g/m LV%fs 38 % LVOT 1.8 cm LA Sng Plane LA Area 24 cm (8.8-23.4) L A Vol 76 ml Index 36 ml/m2 LA LngAx 6.4 cm LVOT LVOT Area 2.7 cm DOPPLER LVOT Stroke Vol LVOT TVI 33 cm HR 65 bpm LVOT LVOT SV 87 ml LVOT CO 5.6 l/min SVi 42 ml/m LVO T CI 2.7 l/m/m Signed 11/06/2019 05:34 PM Kp Steinberg M.D. Performing Organization Address City/State/Zipcode Phone Number [facility] [address] [place] [address] XR Foot 3+ Vw Right (07/09/2019 10:28 AM CDT) Specimen Narrative Performed At This result has an attachment that is no t available. Charcot arthropathy with osseous destruction involving his talus. Varus HM [facility] deformity with medial collapse and signs of disruption involving the lateral ligaments. Talonavicular dislocation is also noted. Performing Organization Address City/[facility]/Zipcode Phone Number [facility] [address] [facility] [place] [address] XR Ankle 3+ Vw Right (07/09/2019 10:28 AM CDT) Specimen Narrative Performed At This result has an attachment that is no t available. Talar collapse secondary to Charcot arthropathy. Varus malalignment with HM [facility] medial impaction. Performing Organization Address City/[facility]/Zipcode Phone Number [facility] [address] [place] [address] POC glucose (06/14/2019 12:52 PM CDT)Only the most recent of39 resultswithin the time period is included. Pathologist Sig nature POC glucose 196 (H) 65 - 99 mg/dL [place] YAZDANISM Comment: [facility] RN Notified Meter ID: [id number] Automation Control Integrator: Myrtle Bautista Specimen Performing Organization Address [facility] Hospitalcode Phone Number [facility] DEPARTMENT OF PATHOLOGY [id number] [place] [address], X [address] AND [facility] [address] [facility] [place] [address] HOSPITAL Estimated GFR (06/14/2019 6:00 AM CDT)Only the most recent of9 resultswithin the time period is included. Pathologist [facility] Estimated GFR 7 (A) mL/min/1.73 [place] [facility] Comment: m2 [place] Catergory Units Interpretation HOS PITAL G1 >=90 Normal or high G2 60-89 Mildly decreased G3a 45-59 Mildly to moderately decreas ed G3b 30-44 Moderately to severely decre ased G4 15-29 Severely decreased G5 <15 Kidney failure The eGFR was calculated using the Chronic Kidney Disea se Epidemiology Collaboration (CKD-EPI) equation. Interpretation is based on recommendations of the National Kidney Foundation-Kidney Disease Outcomes Pj lity Initiative (NKF-KDOQI) published in 2014. Specimen Plasma specimen Performing Organization Address City/[facility]/Zipcode Phone Number [facility] DEPARTMENT OF PATHOLOGY [address] [facility] [place] [address] AND GENOM[facility] [address] [place] [address] X [address] [facility] CBC with platelet and differential (06/14/2019 6:00 AM CDT)Only the most recent of8 resultswithin the time period is included. WBC 6.3 4.5 - 11.0 k/uL [facility] RBC 3.53 (L) 4.40 - 6.00 [facility] m/uL [facility] HGB 10.1 (L) 14.0 - 18.0 [facility] g/dL [facility] HCT 33.2 (L) 41.0 - 51.0 % [facility] MCV 94.1 82.0 - 100.0 fL [facility] MCH 28.6 27.0 - 34.0 pg [facility] MCHC 30.4 (L) 31.0 - 37.0 [facility] g/dL [facility] RDW - SD 50.1 37.0 - 55.0 fL [facility] MPV 10.2 6.9 - 11.0 fL [facility] Platelet count 187 150 - 400 K/uL [facility] Nucleated RBC 0.00 /100 WBC [facility] Neutrophils 47.8 39.0 - 69.0 % [facility] Lymphocytes 27.7 25.0 - 45.0 % [facility] Monocytes 16.2 (H) 0.0 - 10.0 % [facility] Eosinophils 6.2 (H) 0.0 - 5.0 % [facility] Basophils 1.6 (H) 0.0 - 1.0 % [facility] Immature granulocytes 0.5 0.0 - 1.0 % [facility] Specimen Blood Performing Organization Address City/State/Zipcode Phone Number [facility] DEPARTMENT OF PATHOLOGY [address] [facility] [place] [address] [facility] [address] [facility] [place] [address] HOSPITAL Vancomycin level, random (06/14/2019 6:00 AM CDT)Only the most recent of3 resultswithin the time period is included. Vancomycin, random 22.2 ug/mL [facility] Comment: [place] Therapeutic Ranges: HOSPITAL Peak 30.0 - 40.0 ug/mL Trough 10.0 - 20.0 ug/mL Specimen Blood Performing Organization Address City/[facility] Hospitalcode Phone Number [facility] DEPARTMENT OF PATHOLOGY [address] [place] [address] Basic metabolic panel (06/14/2019 6:00 AM CDT)Only the most recent of5 results within the time period is included. Pathologist Sig nature Sodium 137 135 - 148 mEq/L [facility] Potassium 6.1 (HH)Comment: 3.5 - 5.0 mEq/L [facility] Called result with [facility] readback to Tracey Bravo 06/14/2019 07:07 sldak Chloride 98 98 - 112 mEq/L [facility] CO2 29 24 - 31 mEq/L [facility] Anion gap 10@ANIO 7 - 15 mEq/L [facility] BUN 42 (H) 8 - 23 mg/dL [facility] Creatinine 7.62 (H) 0.70 - 1.20 [facility] mg/dL [facility] Glucose 91 65 - 99 mg/dL [facility] Calcium 9.0 8.8 - 10.2 [facility] mg/dL [facility] Specimen Plasma specimen Performing Organization Address [facility] Hospitalcori Phone Number [facility] DEPARTMENT OF PATHOLOGY [address] [place] [address] AND [place] [address] HOSPITAL [place] < 1 Hour (06/13/2019 11:41 AM CDT) Specimen Narrative Performed At EXAMINATION: [place] 1 HOUR [facility] CLINICAL HISTORY: Pain IMPRESSION: Fluoroscopy was provided. No radiologist present. Pl ease see procedure report for discussion of procedure, find ings. [id number] Procedure Note Interface, Radiology Results Incoming - 06/13/2019 11:59 AM CDT EXAMINATION: [place] 1 HOUR CLINICAL HISTORY: Pain IMPRESSION: Fluoroscopy was provided. No radiologist present. Please see procedure report for discussion of procedure, findings. [id number] Performing Organization Address City/[facility]/Zipcode Phone Number [facility] [address] [place] [address] Airway (06/13/2019 7:57 AM CDT) Narrative Performed At Alyson Flores CRNA 06/13/2019 7:57 AM Airway Date/Time: 06/13/2019 7:57 AM Performed by: Alyson Flores CRNA Authorized by: Fred Francisco MD Location: OR Urgency: Elective Difficult Airway: No Anesthesiologist: Gary Francisco MD Resident/FILL TECHNICIAN/AA: Alyson Flores CRN A Performed by: resident/FILL TECHNICIAN/AA Preoxygenated with 100% O2: Yes C-spine Precautions Maintained Throughou t: Yes Mask Ventilation: Easy mask Final Airway Type: Supraglottic airway Final LMA: I-Gel LMA Size: 5 Number of Attempts at Approach: 1 Prothrombin time with INR (06/13/2019 5:10 AM CDT)Only the most recent of3 resultswithin the time period is included. Prothrombin time 13.5 11.5 - 14.5 [facility] INR 1.1 [place] Comment: YAZDANISM [facility] International Normalized Ratio (INR) is a [facility] monitoring tool for patients who are stable on oral anticoagulant therapy. An INR of 2.0-3.0 is suggested for deep vein thrombosis/pulmonary embolism. Specimen Blood Performing Organization Address City/[facility]/Zipcode Phone Number [facility] DEPARTMENT OF PATHOLOGY [address] [facility] [place] [address] AND [facility] [address] [facility] [place] [address] [facility] CBC hemogram (06/13/2019 5:10 AM CDT)Only the most recent of2 resultswithin the time period is included. Pathologist Sig nature WBC 6.3 4.5 - 11.0 k/uL [facility] RBC 3.55 (L) 4.40 - 6.00 m/uL [facility] HGB 10.4 (L) 14.0 - 18.0 g/dL [facility] HCT 33.3 (L) 41.0 - 51.0 % [facility] MCV 93.8 82.0 - 100.0 fL [facility] MCH 29.3 27.0 - 34.0 pg [facility] MCHC 31.2 31.0 - 37.0 g/dL [facility] RDW - SD 48.0 37.0 - 55.0 fL [facility] MPV 10.1 6.9 - 11.0 fL [facility] Platelet count 198 150 - 400 K/uL [facility] Nucleated RBC 0.00 /100 WBC [facility] Specimen Blood Performing Organization Address City/[facility]/Zipcode Phone Number [facility] DEPARTMENT OF PATHOLOGY [address] [facility] [place] [address] AND [facility] [address] [facility] [place] [address] HOSPITAL XR Chest 1 Vw Portable (06/11/2019 7:36 PM CDT)Only the most recent of2 results within the time period is included. Specimen Narrative Performed At EXAMINATION: XR CHEST 1 VW PORTABLE [facility] CLINICAL HISTORY: shortness of breath new onset cough congestion COMPARISON: 06/06/2019 IMPRESSION: Mild interstitial congestive changes apple pected as compared to previous Mild cardiomegaly Minimal costophrenic angle effusions No pneumothorax Interval removal right IJ dialysis chao ter Single view chest. [id number] Procedure Note Hm Interface, Radiology Results Incoming - 06/11/2019 7:41 PM CDT EXAMINATION: XR CHEST 1 VW PORTABLE CLINICAL HISTORY: shortness of breath new onset cough congestion COMPARISON: 06/06/2019 IMPRESSION: Mild interstitial congestive changes apple pected as compared to previous Mild cardiomegaly Minimal costophrenic angle effusions No pneumothorax Interval removal right IJ dialysis chao ter Single view chest. [id number] Performing Organization Address City/State/Zipcode Phone Number [facility] [address] [place] [address] Aerobic culture (06/10/2019 4:45 PM CDT) Aerobic culture Staphylococcus, coagulase negative [facility] Comment: Specimen Information Specimen Source: Wound Specimen Site: Ankle Specimen Wound - Ankle Performing Organization Address City/State/Zipcode Phone Number [facility] DEPARTMENT OF PATHOLOGY AND [address] [place], [place] [address] [address] Gram stain (06/10/2019 4:45 PM CDT) Gram stain isolate No WBC's or organisms seen. [facility] Comment: HOSPITAL Specimen Information Specimen Source: Wound Specimen Site: Ankle Specimen Wound - Ankle Performing Organization Address City/State/Zipcode Phone Number [facility] DEPARTMENT OF PATHOLOGY AND [address] [place], [place] [address] [address] Potassium level (06/10/2019 11:31 AM CDT) Pathologist Sig nature Potassium 3.4 (L) 3.5 - 5.0 mEq/L [facility] Specimen Plasma specimen Performing Organization Address [facility] Hospitalcode Phone Number [facility] DEPARTMENT OF PATHOLOGY [address] [place] [address] X [address] AND [facility] [id number] [place] [address] X [address] HOSPITAL Sedimentation rate (06/10/2019 4:30 AM CDT) Pathologist Sig nature Sedimentation rate 29 (H) 0 - 10 mm/hr [facility] Specimen Blood Performing Organization Address [facility]/Zipcode Phone Number [facility] DEPARTMENT OF PATHOLOGY [address] [place] [address], X [address] [place] [address] HOSPITAL Type and screen (06/10/2019 4:30 AM CDT) Pathologist Sig nature ABO grouping O [facility] Rh type POS [facility] Antibody screen (gel) NEG [facility] Specimen Blood Performing Organization Address City/[facility]/Zipcode Phone Number [facility] DEPARTMENT OF PATHOLOGY [address] [place] [address] [address] [place] [address] [facility] MRI Foot Wo Contrast Right (06/09/2019 8:50 PM CDT) Specimen Narrative Performed At EXAMINATION: MRI FOOT WO CONTRAST RIGH T [facility] CLINICAL HISTORY: osteo COMPARISON: CT of the right lower extr emity 06/08/2019 TECHNIQUE: Multiplanar multisequence MR of the right foot is perf ormed without contrast. FINDINGS: 1.There are degenerative arthritic changes in the firs t and third metatarsophalangeal joints and multiple interphalangea l joints. There is a mild joint effusion in the first and t hird metatarsophalangeal joint. 2.Patient is status post second transmet atarsal amputation. 3.The imaged mid to distal foot demonstrate no signs o f osteomyelitis or septic arthritis. 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 5.Referred ankle MRI for further finding s. IMPRESSION: No signs of osteomyelitis or septic arth ritis in the mid to distal foot. [id number] Procedure Note Interface, Radiology Results Incoming - 06/09/2019 8:59 PM CDT EXAMINATION: MRI FOOT WO CONTRAST RIGHT CLINICAL HISTORY: osteo COMPARISON: CT of the right lower extre mity 06/08/2019 TECHNIQUE: Multiplanar multisequence MR of the righ t foot is performed without contrast. FINDINGS: 1.There are degenerative arthritic mccord es in the first and third metatarsophalangeal joints and multiple interphalangeal joints. There is a mild joint effusion in the first and third metatarsophalangeal joint. 2.Patient is status post second transmet atarsal amputation. 3.The imaged mid to distal foot demonstr ate no signs of osteomyelitis or septic arthritis. 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 5.Referred ankle MRI for further finding s. IMPRESSION: No signs of osteomyelitis or septic arth ritis in the mid to distal foot. [id number] Performing Organization Address City/State/Zipcode Phone Number [facility] [address] [place] [address] MRI Ankle Wo Contrast Right (06/09/2019 8:50 PM CDT) Specimen Narrative Performed At This result has an attachment that is no t available. EXAMINATION: MRI ANKLE WO CONTRAST RIGHT [facility] CLINICAL HISTORY: Osteomyelitis known ankle fo llow up COMPARISON: CT right lower extremity 06/08/2019 FINDINGS: 1.There is marked destruction of the corrie us, which is fragmented, flattened, eroded, and there is extensive surrounding synovial proliferation. There is associated edema and erosion of the distal tibial plafond, reactive edema of the distal fibula, and diffuse marrow edema and intraosseous cy stic changes in the calcaneus. There is edema in the navicular with some reactive articular surface sclerosis proximally. 2.There is no large joint effusion. Ther e is comparatively little adjacent subcutaneous edema/cellulitis. 3.There is localized soft tissue ulcerat ion superficial to the lateral malleolus, however most of the destructive joint changes are some distance from this ulcer. The adjacent fibular cortex does not appear compromised. 4.There is some peritendinous fluid arou nd the peroneus tendons. The remaining ankle tendons appear generally intact. 5.Diffuse high signal in the muscles of the foot are likely from diabetic myopathy. IMPRESSION: Marked destruction and collapse of the t alus and advanced arthritic changes and synovitis of the ankle and hindfoot as described. There is extensive synovitis. Given that there is a comparative lack of significant cellulitis, and no obvious contiguous ulcer or abscess, the findings are most compatible wit h Charcot arthropathy. [id number] Procedure Note Interface, Radiology Results - 06/09/2019 9:09 PM CDT EXAMINATION: MRI ANKLE WO CONTRAST RIGHT CLINICAL HISTORY: Osteomyelitis known ankle follow up COMPARISON: CT right lower extremity FINDINGS: 1.There is marked destruction of the corrie us, which is fragmented, flattened, eroded, and there is extensive surrounding synovial proliferation. There is associated edema and erosion of the distal tibial plafond, reactive edema of the distal fi bula, and diffuse marrow edema and intraosseous cy stic changes in the calcaneus. There is edema in the navicular with some reactive articular surface sclerosis proximally. 2.There is no large joint effusion. Ther e is comparatively little adjacent subcutaneous edema/cellulitis. 3.There is localized soft tissue ulcerat ion superficial to the lateral malleolus, however most of the destructive joint changes are some distance from this ulcer. The adjacent fibular cortex does not appear compromised. 4.There is some peritendinous fluid arou nd the peroneus tendons. The remaining ankle tendons appear generally intact. 5.Diffuse high signal in the muscles of the foot are likely from diabetic myopathy. IMPRESSION: Marked destruction and collapse of the t alus and advanced arthritic changes and synovitis of the ankle and hindfoot as described. There is extensive synovitis. Given that there is a comparative lack of significant cellulitis, and no obvious contiguous ulcer or abscess, the findings are most compatible with Charcot arthropathy. [id number] Performing Organization Address City/State/Zipcode Phone Number [facility] [address] [place] [address] duplex arterial lower extremity (06/08/2019 10:20 AM CDT) Specimen Narrative Performed At [facility] EXAM: Right lower extremity arterial Dop pler HISTORY: Claudication TECHNIQUE: Real-time as well as pulsed and color Doppl er evaluation of right common femoral, femoral, popliteal, posterior ti bial, anterior tibial, and dorsalis pedis arteries are evaluated. The examination includes a full duplex Doppler scan of t he blood vessels (real-time P mode grayscale, Doppler spe ctral analysis, and Doppler color flow imaging). IMPRESSION: 1.Significant arterial peripheral vascular disease is noted within the right lower extremity as evidenced by monophasic wavef orm morphology within the infrapopliteal segment. This can be better evaluated with CTA or conventional arteriography as clinically. 2.Probable focal stenosis within the mid posterior tibial artery. Findings: Calcified atherosclerotic disease is seen throughout t he femoropopliteal and infrapopliteal segments of the right lower extremi ty. Flow is seen within all evaluated arteries. Biphasic waveforms are seen within the common femoral and superficial femoral artery, however, convert to monophasic wavefor ms within the popliteal, anterior tibial, posterior tibial, and dors denis pedis arteries. Variations in peak systolic ve locity are noted throughout the right lower extremity which are n onspecific (except the mid posterior tibial artery measuring 175 cm/s) an d are not significantly elevated or demonstrate a significant gr adient in peak systolic velocity to suggest a focal are a of stenosis. In the arteries demonstrating monophasic waveforms, th ere is no evidence of blunting of the waveform morphology. Collateral arterial vasculature is noted arising from the superficial femoral artery. PEAK SYSTOLIC VELOCITIES: RIGHT LEG: COMMON FEMORAL: 105 cm/s FEMORAL: Proximal: 97 cm/s Mid: 135 cm/s Distal: 129 cm/s POPLITEAL: Proximal: 89 cm/s Mid: 119 cm/s Distal: 83 cm/s POSTERIOR TIBIAL: Proximal: 86 cm/s Mid: 100 cm/s Distal: 89 cm/s ANTERIOR TIBIAL: Proximal: 50 cm/s Mid: 175 cm/s Distal: 96 cm/s DORSALIS PEDIS: 119 cm/s [id number] Procedure Note Hm Interface, Radiology Results Incoming - 06/08/2019 12:06 PM CDT EXAM: Right lower extremity arterial Dop pler HISTORY: Claudication TECHNIQUE: Real-time as well as pulsed a nd color Doppler evaluation of right common femoral, femoral, popliteal, posterior tibial, anterior tibial, and dorsalis pedis arteries are evaluated. The examination includes a full duplex Doppler scan of the blood vessels (real-time P mode grayscal e, Doppler spectral analysis, and Doppler color flow imaging). IMPRESSION: 1.Significant arterial peripheral vascul ar disease is noted within the right lower extremity as evidenced by monophasic waveform morphology within the infrapopliteal segment. This can be better evaluated with CTA or conventional arteriography as clinically. 2.Probable focal stenosis within the mid posterior tibial artery. Findings: Calcified atherosclerotic disease is see n throughout the femoropopliteal and infrapopliteal segments of the right lower extremity. Flow is seen within all evaluated arteries. Biphasic waveforms are seen within the c ommon femoral and superficial femoral artery, however, convert to monophasic waveforms within the popliteal, anterior tibial, posterior tibial, and dorsalis pedis arteries. Variations in peak systolic velocity are noted throughout the right lower extremi ty which are nonspecific (except the mid posterior tibial artery measuring 175 cm/s) and are not significantly elevated or demonstrate a significant gradient in peak systolic velocity to suggest a focal are a of stenosis. In the arteries demonstrating monophasic waveforms, there is no evidence of blunting of the waveform morphology. Collateral arterial vasculature is noted arising from the superficial femoral artery. PEAK SYSTOLIC VELOCITIES: RIGHT LEG: COMMON FEMORAL: 105 cm/s FEMORAL: Proximal: 97 c m/s Mid: 135 cm/s Distal: 1 29 cm/s POPLITEAL: Proximal: 89 c m/s Mid: 119 cm/s Distal: 8 3 cm/s POSTERIOR TIBIAL: Proximal: 86 c m/s Mid: 100 cm/s Distal: 8 9 cm/s ANTERIOR TIBIAL: Proximal: 50 c m/s Mid: 175 cm/s Distal: 9 6 cm/s DORSALIS PEDIS: 119 cm/s [id number] Performing Organization Address City/State/Zipcode Phone Number [facility] [address] [place] [address] CT Lower Extremity Wo Contrast Right (06/08/2019 9:52 AM CDT) Specimen Narrative Performed At CT LOWER EXTREMITY WO CONTRAST RIGHT [facility] CLINICAL INDICATION: Osteomyelitis apple pected tib fib initial exam TECHNIQUE: Multidetector CT of the right lower extre mity/foreleg was performed without intravenous iodinated contrast with automated exposure control and/or iterative reconstruction techniques to radiation dose. COMPARISON: None FINDINGS: BONES: There are chronic posttraumatic changes about the ankle. There is a chronic displaced fracture involving the medial m alleolus with multiple small comminuted fragments through the interv al. Prominent hindfoot valgus is also noted. There is a chronic deformity of the talar dome with sclerotic as well as partially resorbed fracture of the talar dome incorporating near ly the articular surface of the talus. There are adjacent areas of eros ion however which are more pronounced than expected for trauma alone around the talar dome residual fragment. Similarly, there are erosive changes involving the distal subarticular medial tibia as well as about the lateral distal tibia. Bones are nory neralized which probably reflects disuse. MRI with and without contrast is recommended for further resonance or whether this reflects potential inflammatory changes, Charcot arthr opathy possible alternatively.. JOINT(S): Extensive at least in part posttraumatic c hanges of the ankle as above. There is extensive soft tissue about t he ankle consistent with advanced synovitis, infection not excl uded. MRI is recommended in follow-up. SOFT TISSUES: There is extensive soft tissue swelling about the ankle both medially and laterally. No ulceration is noted ov er the lateral malleolus without underlying changes in bone. Severe a rteriosclerosis is present consistent with diabetic history . Atrophy of the tibialis anterior is present, the dista l tendon not well seen, attention at time of MRI recommended. Mild diffu se muscular atrophy is noted. IMPRESSION: Chronic appearing fractures involving the medial malle olus with disruption of the talar dome as described. In addition , there are are erosive changes/osteolysis surrounding the talar dome defect as well as the distal tibia and given extensive sof t tissue synovitis, MR is recommended for further evaluation t o evaluate Charcot versus potential infectious cause. *[id number] Procedure Note Hm Interface, Radiology Results Incoming - 06/08/2019 10:[address] LOWER EXTREMITY WO CONTRAST RIGHT CLINICAL INDICATION: Osteomyelitis susp ected tib fib initial exam TECHNIQUE: Multidetector CT of the rig t lower extremity/foreleg was performed without intravenous iodinated contrast with automated exposure control and/or iterative reconstruction techniques to radiation dose. COMPARISON: None FINDINGS: BONES: There are chronic posttraumatic changes about the ankle. There is a chronic displaced fracture involving the medial malleolus with multiple small comminuted fragments through the interval. Prominent hindfoot valgus is also noted. There is a chronic deformity of the talar dome with sclerotic as well as partially resorbed fracture of the talar dome incorporating nearly the articular surface of the talus. There are adjacent areas of erosion however which are more pronounced than expected for trauma alone around the talar dome resid ual fragment. Similarly, there are erosive changes involving the distal subarticular medial tibia as well as about the lateral distal tibia. Bones are demineralized which probably reflects disuse. MRI with and without contrast is recommended for furt her resonance or whether this reflects potential inflammatory changes, Charcot arthropathy possible alternatively.. JOINT(S): Extensive at least in part po sttraumatic changes of the ankle as above. There is extensive soft tissue about the ankle consistent with advanced synovitis, infection not excluded. MRI is recommended in follow-up. SOFT TISSUES: There is extensive soft ti ssue swelling about the ankle both medially and laterally. No ulceration is noted over the lateral malleolus without underlying changes in bone. Severe arteriosclerosis is present consistent with diabetic history. Atrophy of the tibialis anterior is pres ent, the distal tendon not well seen, attention at time of MRI recommended. Mild diffuse muscular atrophy is noted. IMPRESSION: Chronic appearing fractures involving th e medial malleolus with disruption of the talar dome as described. In addition, there are are erosive changes/osteolysis surrounding the talar dome defect as well as the distal tibia and given extensive soft tissue synovitis, MR is recommended for furthe r evaluation to evaluate Charcot versus potential infectious cause. *[facility]-[id number] Performing Organization Address City/[facility]/Zipcode Phone Number [facility] [address] [place] [address] Phosphorus level (06/08/2019 4:43 AM CDT)Only the most recent of3 resultswithin the time period is included. Pathologist Sig nature Phosphorus 3.7 2.4 - 4.5 mg/dL [facility] Specimen Plasma specimen Performing Organization Address [facility] Phone Number [facility] DEPARTMENT OF PATHOLOGY [id number] [place] [address] X [phone] AND [facility] [id number] [place] [address] X [address] [facility] Magnesium level (06/08/2019 4:43 AM CDT)Only the most recent of3 resultswithin the time period is included. Pathologist [facility] critical [facility] hospital Magnesium 2.4 1.6 - 2.4 mg/dL [facility] Specimen Plasma specimen Performing Organization Address [facility] Phone Number [facility] DEPARTMENT OF PATHOLOGY [id number] [place] [address], X [address] [place] [address] [facility] Ionized calcium (06/08/2019 4:43 AM CDT)Only the most recent of3 resultswithin the time period is included. Pathologist Sig critical [facility] hospital pH 7.40 [facility] Ionized calcium 1.08 (L) 1.11 - 1.32 [facility] mmol/L [facility] Specimen Plasma specimen Performing Organization Address [facility] Phone Number [facility] DEPARTMENT OF PATHOLOGY [address] [place] [address], X [address] [place] [address] [facility] Comprehensive metabolic panel (06/08/2019 4:43 AM CDT)Only the most recent of4 resultswithin the time period is included. Pathologist Sig nature Sodium 136 135 - 148 mEq/L [facility] Potassium 4.8 3.5 - 5.0 mEq/L [facility] Chloride 98 98 - 112 mEq/L [facility] CO2 28 24 - 31 mEq/L [facility] Anion gap 10@ANIO 7 - 15 mEq/L [facility] BUN 20 8 - 23 mg/dL [facility] Creatinine 5.00 (H) 0.70 - 1.20 [facility] mg/dL [facility] Glucose 160 (H) 65 - 99 mg/dL [facility] Calcium 9.0 8.8 - 10.2 [facility] mg/dL [facility] Protein 6.5 6.3 - 8.3 g/dL [facility] Albumin 3.3 (L) 3.5 - 5.0 g/dL [facility] A/G ratio 1.0 0.7 - 3.8 [facility] Alkaline phosphatase 124 40 - 129 U/L [facility] AST 29 10 - 50 U/L [facility] ALT 18 5 - 50 U/L [facility] Total bilirubin <0.2 0.2 - 1.2 mg/dL [facility] Specimen Plasma specimen Performing Organization Address City/State/Zipcode Phone Number [facility] DEPARTMENT OF PATHOLOGY [address] [facility], [place] [address] AND [facility] [address] [facility] [place] [address] [facility] Hepatitis B surface Ab, quantitative (06/07/2019 7:40 PM CDT) Hepatitis B surface <3.10 IU/L [facility] Ab Comment: The anti-HBs is less than 10 IU/L and is therefore neg ative. There is no evidence of recovery from hepatitis B infection or evidence of antibody response to HBV vaccination. An anti-HBs result greater than or equal to 10 IU/L im plies immunity. For post-vaccination antibody testing guidel umair for the general public refer to MMWR September 16, 2005/Vol. 54 (No. 16);10-17, and for healthcare workers refer to MMWR Aug/Vol. 62(No. 10);-. Reference Interval: anti-HBs 9.99 IU/L or less ....... Negative 10.00 IU/L or greater .... Positive Results greater than 1,000.00 IU/L are reported as gre ater than 1,000.00 IU/L. This assay should not be used for blood donor screenin g, associated re-entry protocols, or for screening Human Cell, Tissues and Cellular and Tissue-Based Products (HCT/P) . Performed by [facility], [address] [place] [address] www.[email or web address], Cam Sauceda MD - Lab. Director Specimen Serum Performing Organization Address City/[facility]/Zipcode Phone Number [facility] [address] [place] [address] [facility] [address] [place] [address] Hepatitis B core antibody total (06/07/2019 7:40 PM CDT) Pathologist Sig nature Hepatitis B core Non-reactive Non-reactive [facility] Specimen Blood Performing Organization Address City/[facility]/Zipcode Phone Number [facility] DEPARTMENT OF PATHOLOGY AND [address] [place], [place] [address] [facility] [address] [place] [address] Hepatitis B surface antigen (06/07/2019 7:40 PM CDT) Pathologist Sig nature Hepatitis B surface Non-reactive Non-reactive [facility] Ag [facility] Specimen Blood Performing Organization Address [facility]/Zipcode Phone Number [facility] DEPARTMENT OF PATHOLOGY [id number] [place] [address] X [address] AND [facility] [id number] [place] [address] X [address] HOSPITAL IR Tunneled Dialysis Catheter Removal (06/07/2019 2:38 PM CDT) Specimen Narrative Performed At [facility] Procedure: Tunneled central venous catheter removal Performing Radiologist: Trino Mcbride MD Assistants: None Anesthesia Type: Lidocaine 1% was used for local anesthes ia. Preprocedure Diagnosis: End-stage renal disease Post Procedure Diagnosis: Same Technique: After explaining the procedure as well as its benefits and risks including but not limited to bleeding, infection, and damage to adjacent structures, all of the patient's questions were answer ed to apparent satisfaction and written informed consen t was then obtained. The previously placed tunneled central venous catheter and surrounding skin were prepped and draped in usual sterile fashion. Lidocaine was administered locally. Using a combination of sharp and blunt dissection the catheter cuff was freed from the surrounding soft tissues. The catheter was then removed from the patient in its entirety. Hemostasis was achie mellissa after direct manual compression. The patient tolerated the procedure well. Complications: None Specimens Removed: None Estimated Blood Loss: Less than 1 mL Blood/Blood Products Administered: None Grafts/Implants: As described in the above report. Impression: Successful, uncomplicated tunneled centr al venous catheter removal. [facility]-[id number] Procedure Note Hm Interface, Radiology Results Incoming - 06/07/2019 2:43 PM CDT Procedure: Tunneled central venous catheter removal Performing Radiologist: Trino Mcbride MD Assistants: None Anesthesia Type: Lidocaine 1% was used for local anesthes ia. Preprocedure Diagnosis: End-stage renal disease Post Procedure Diagnosis: Same Technique: After explaining the procedure as well a s its benefits and risks including but not limited to bleeding, infection, and damage to adjacent structures, all of the patient's questions were answered to apparent satisfaction and written informed consent was then obtained. The previously placed tunneled central v enous catheter and surrounding skin were prepped and draped in usual sterile fashion. Lidocaine was administered locally. Using a combination of sharp and blunt d issection the catheter cuff was freed from the surrounding soft tissues. The catheter was then removed from the patient in its entirety. Hemostasis was achieved after direct manual compression. The patient tolerated the procedure well. Complications: None Specimens Removed: None Estimated Blood Loss: Less than 1 mL Blood/Blood Products Administered: None Grafts/Implants: As described in the above report. Impression: Successful, uncomplicated tunneled centr al venous catheter removal. [facility]-[id number] Performing Organization Address City/State/Zipcode Phone Number [facility] [address] [place] [address] Us duplex venous upper extremity (06/07/2019 11:19 AM CDT)Only the most recent of2 resultswithin the time period is included. Specimen Narrative Performed At EXAMINATION: US DUPLEX VENOUS UPPER EX TREMITY RIGHT [facility] CLINICAL HISTORY: M79.603 Pain in arm unspecified, M79.89 Other specified soft tissue disorders, arm nilesh n and swelling COMPARISON: None. TECHNIQUE: Grayscale, color Doppler, and spectral wa veform analysis of the right upper extremity deep venous sy stem was performed. FINDINGS: The right internal jugular vein demonstrates normal fl ow and compressibility. The right subclavian, axillary, brach ial, basilic, cephalic, and forearm veins reveal no evidence of thro mbosis. The veins demonstrate normal Doppler flow and norm al compressibility. A patent right brachial artery to basilic vein arterio venous fistula is present. Complex avascular fluid collection likely hem atoma is noted adjacent to the fistula anastomosis measuring on the o rder of 4.3 x 2.3 x 3.1 cm. Subcutaneous edema is present. Right-sided central venous catheter is n oted. IMPRESSION: No sonographic evidence of deep venous thrombosis of t he right upper extremity. Patent right upper extremity AV fistula with small to moderate adjacent hematoma. [facility]-[id number] Procedure Note Interface, Radiology Results Incoming - 06/07/2019 11:36 AM CDT EXAMINATION: US DUPLEX VENOUS UPPER EXTREMITY RIGHT CLINICAL HISTORY: M79.603 Pain in arm unspecified, M79.89 Other specified soft tissue disorders, arm pain and swelling COMPARISON: None. TECHNIQUE: Grayscale, color Doppler, an d spectral waveform analysis of the right upper extremity deep venous system was performed. FINDINGS: The right internal jugular vein demonstr ates normal flow and compressibility. The right subclavian, axillary, brachial, basilic, cephalic, and forearm veins reveal no evidence of thrombosis. The veins demonstrate normal Doppler flow and normal compressibility. A patent right brachial artery to basili c vein arteriovenous fistula is present. Complex avascular fluid collection likely hematoma is noted adjacent to the fistula anastomosis measuring on the order of 4.3 x 2.3 x 3.1 cm. Subcutaneous edema is present. Right-sided central venous catheter is n oted. IMPRESSION: No sonographic evidence of deep venous t hrombosis of the right upper extremity. Patent right upper extremity AV fistula with small to moderate adjacent hematoma. [facility]-[id number] Performing Organization Address City/State/Zipcode Phone Number [facility] [address] [facility] [place] [address] Hemoglobin A1c (06/07/2019 4:58 AM CDT) Hemoglobin A1C 5.2 4.0 - 5.6 % DASIA YAZDANISM Comment: [facility] HbA1c cutoffs for diagnosing diabetes: HO SPITAL 4.0% - 5.6% = normal 5.7% - 6.4% = increased risk for diabetes (prediabetes ) >=6.5% = diabetes Goals for glycemic control (ADA 2016) < 7.0% Target for non adults with diabetes. More or less stringent targets may be appropriate for individual patients. <7.5% Target for Children and adolescents with type 1 diabetes. Specimen Blood Performing Organization Address City/State/Zipcode Phone Number [facility] DEPARTMENT OF PATHOLOGY [address] [facility] [place] [address] AND [facility] [address] [facility], [place] [address] HOSPITAL XR Foot 2 Vw Right (06/06/2019 5:31 AM CDT) Specimen Narrative Performed At EXAMINATION: XR FOOT 2 VW RIGHT [facility] CLINICAL HISTORY: Osteomyelitis suspec parveen foot swelling diabetic COMPARISON: None. 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 There is edema of the great toe. No cortical erosion or periosteal re action to indicate acute osteomyelitis is identified. No acute fracture. Diffuse vascular athe rosclerosis. [facility]-[id number] Procedure Note Interface, Radiology Results Incoming - 06/06/2019 5:35 AM CDT EXAMINATION: XR FOOT 2 VW RIGHT CLINICAL HISTORY: Osteomyelitis suspect ed foot swelling diabetic COMPARISON: None. IMPRESSION: Prior amputation of the first digit thro ugh the interphalangeal joint an of the second digit through the head of the metatarsal. There is edema of the great toe. No cortical erosion or periosteal reaction to indicate acute osteomyelitis is identified. No acute fracture. Diffuse vascular athe rosclerosis. [facility]-[id number] Performing Organization Address [facility] Phone Number [facility] [address] [place] [address] Blood culture, aerobic & anaerobic (2019 10:00 PM CDT)Only the most recent of2 resultswithin the time period is included. Blood culture No growth after 5 days of incubation. PAMELA DONAHUE isolate Comment: HOSPITAL Specimen Information Specimen Source: Blood Specimen Site: Arm, right Specimen Blood - Arm, right Performing Organization Address City/[facility]/Zipcode Phone Number [facility] DEPARTMENT OF PATHOLOGY AND [address] [place] [address] [facility] [address] [place] [address] Lactic acid level (2019 10:00 PM CDT) Pathologist Sig nature Lactic acid 1.2 0.5 - 2.2 mmol/L [facility] Specimen Plasma specimen Performing Organization Address City/[facility]/Zipcode Phone Number [facility] DEPARTMENT OF PATHOLOGY [address] [facility], [place] [address] AND [facility] [address] [facility], [place] [address] HOSPITAL ECG ED Preliminary Interpretation - Not an Order (2019 9:38 PM CDT) Narrative Performed At Ludwig Escobar III, MD 06/06/20 8:26 PM ECG ED Preliminary Interpretation - Not an Order Performed by: Ludwig Escobar III, MD Authorized by: Ludwig Escobar III, M D ECG reviewed by ED Physician in the abse nce of a [place]: yes Interpretation: Interpretation: abnormal Quality: Tracing quality: Limited by artifac t Rate: ECG rate: 78 ECG rate assessment: normal Rhythm: Rhythm: sinus rhythm Ectopy: Ectopy: none QRS: QRS axis: Normal QRS intervals: Normal Conduction: Conduction: normal ST segments: ST segments: Non-specific T waves: T waves: non-specific ECG 12 lead (2019 9:10 PM CDT) Pathologist Sig nature Ventricular rate 78 [facility] Atrial rate 78 [facility] OK interval 150 [facility] QRSD interval 88 [facility] QT interval 412 [facility] QTC interval 469 [facility] P axis 1 50 [facility] QRS axis 1 47 [facility] T wave axis 45 [facility] EKG impression Normal sinus rhythm-Cannot r ule out Anterior infarct , age undetermined-Abnormal ECG-In automated comparison with ECG of 01-MAR-2019 14:40,-T wave amplitude has increased in Anterior leads-Electronicall [facility] y Signed By Karin BRAGG, Tori ([id number]) on 06/06/2019 6:39:37 PM Specimen Narrative Performed At This result has an attachment that is no t available. Performing Organization Address City/State/Zipcode Phone Number [facility] [address] [place] [address] after 03/05/2019 Insurance Payer Benefit Plan / Subscriber ID Effective Dates Phone Addre ss Type Group BCBS BCBS CHOICE xxxxxxxxxxxx 2019-Present PPO PPO/[employer]ERAL EMPL PPO MEDICAID MEDICAID xxxxxxxxx 2019-Present Me dicaid MEDICARE MEDICARE PART A xxxxxxxxxxx 2017-Present [place], [place] Medicare AND B Advance Directives For more information, please contact: [phone] Type Date Recorded Patient Advertising Coordinator Explanati on Advance Directives, Living Will 11/02/2017 3:11 PM and Medical Power of Nursing Program Coordinator Advance Directives, Living Will 03/01/2019 3:12 PM and Medical Power of Nursing Program Coordinator Code Status Date Activated Date Inactivated Comments Full Code 08/23/2018 3:54 AM 08/27/2018 9:46 PM Code Status decision reached by: Patient
--- OUTSIDE RECORDS SUMMARY | 2020-03-05 10:42 | XMS REPORT | Continuity of Care Document ---
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 03/04/20 [place] FISTULA 19 MALFUNCTION UNK Active 01/09/[address] 19 N18.6 Active 11/24/[address] 19 Diabetes Active Problem 03/09/2019 [place] mellitus Neuro, (disorder) [facility] Dyspnea on Active Problem 03/09/2019 [place] exertion Neuro, (finding) [facility] End stage renal Active Problem 03/09/2019 Mis augustine failure on [facility] [place] (disorder) Heart failure Resolved Problem 03/09/2019 Misch er (disorder) [facility] Hypertensive Active Problem 03/09/2019 Mische r disorder, Neuro, systemic [facility] arterial (disorder) Myocardial Resolved Problem 03/09/2019 [place] infarction [facility] (disorder) [facility] Sleep apnea Active Problem 03/09/2019 [place] (finding) [facility] Hand pain Active Problem 03/09/2019 [place] (finding) [facility] Paresthesia Active Problem 03/09/2019 [place] (finding) [facility] Simple obesity Active Problem 03/09/2019 Misc her (disorder) [facility] Sudden Active Problem 03/09/2019 Mische r (finding) [facility] Unspecified 03/09/2019 [place] complication of cardiac and vascular prosthetic device, implant and graft, initial encounter [facility] COMPL OF Active [place] [facility] 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 [place] 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 Active [place] MELLITUS WITH HYPERGLYCE PROTEINURIA, Active [place] UNSPECIFIED Medications Medication Details Route Status Patient Ordering Order Source Instructions Provider Date Acetaminophen 300 1 tab, PO, Q8H, Active 03/07/ MG / Codeine PRN Pain Score 2018 [place] Phosphate 30 MG 6-10, X 7 day, Oral Tablet # 28 tab, 0 [Tylenol with Refill(s) Codeine #3] zolpidem 10 mg 10 mg = 1 tab, Active oral tablet PO, Bedtime, [address] PRN as needed for insomnia, X 30 day, # 30 tab, 0 Refill(s) predniSONE 20 mg 60 mg = 3 tab, Active oral tablet PO, Daily, Take 2019 [place] 3 tablets for 60 mg dose, X 4 day, # 12 tab, 0 Refill(s), Pharmacy: [facility] [id number] pantoprazole 40 40 mg = 1 tab, Active H mg oral enteric PO, Before 2019 [place] coated tablet Breakfast, # 30 tab, 0 Refill(s), Pharmacy: [facility] [id number] Colchicine 0.6 MG 0.6 mg = 1 tab, Active Oral Tablet PO, BID, # 60 [address] [place] tab, 0 Refill(s), Pharmacy: [facility] [id number] Levofloxacin 500 500 mg = 1 tab, Active MG Oral Tablet PO, Q24H, X 10 2019 [place] [Levaquin] day, # 10 tab, 0 Refill(s), Pharmacy: [facility] [id number] Protonix Notes: Tablet Inactive should not be 2018 [facility] chewed or crushed. (Same as: Protonix) Solu-Medrol Notes: (Same No Longer as:Solu-MEDROL, Active [facility] t A-Methapred) Colchicine 0.6 mg, 1 tab, No Longer Route: PO, Drug Active 2018 t form: TAB, BID, Dosing Weight 92.227, kg, Priority: NOW, Start date: 03/06/19 14:53:00 CDT, Duration: 30 day, Stop date: 04/05/19 9:00:00 CDT tamsulosin Notes: (Same No Longer As: Flomax) Active 2018 [facility] "Do Not Crush" atorvastatin Notes: (Same No Longer As: Lipitor) Active 2018 [facility] Epogen Notes: (Same No Longer as: Procrit) Active 2018 [facility] epoetin olamide 62160 unit/1 ml VL. For dialysis use only. (Procrit) WASTE: F/P - Red; E -Red MEDICATION WASTE Product Size: 63751 unit Product Wasted: ___ unit vancomycin + Notes: TIME No Longer Sodium Chloride CRITICAL Active [address] [facility] 0.9% IV 100 mL MEDICATION (Same As: Vancocin) For adult patients only: Round to nearest 250 mg per Medical Staff approval Lactulose 667 Notes: (Same No Longer MG/ML Oral as:Chronulac) Active [address] [facility] Solution Fluticasone Notes: (Same No Longer propionate 0.05 as: Flonase) Active 2018 [place] MG/ACTUAT Metered Dose Nasal [place] [Flonase] Fluticasone 1 spray, NASAL, Active propionate 0.05 BID, # 16 gm, 0 2018 [facility] MG/ACTUAT Metered Refill(s) Dose Nasal [place] [Flonase] prasugrel 60kg, without No Longer history of Active 2018 [facility] TIA/Ischemic stroke and without likely bypass surgery Veltassa 8.4 gm, Route: No Longer PO, Drug form: Active 2018 [facility] PDR/REC, Daily, Dosing Weight 92.227, kg, Start date: 03/05/19 9:00:00 CDT, Duration: 30 day, Stop date: 04/03/19 9:00:00 CDT gabapentin 300 MG Notes: (Same No Longer Oral Capsule as: Neurontin) Active 2018 [place] Insulin Glargine Notes: (Same No Longer 100 UNT/ML as: Lantus) Do Active 2018 [facility] ast Injectable not hold Solution [Lantus] insulin without contacting prescriber WASTE: F/P - Black; E - Municipal Trash Bin "single patient use only" Stable for 28 days at room temperature Expires in days from D ate carvedilol Notes: Give No Longer with food. Active 2018 [facility] (Same As: Coreg) Aspirin 81 MG Notes: Do not No Longer Enteric Coated crush or chew. Active [place] Tablet (Same As: Ecotrin) Nephro-Dana Rx Notes: (Same No Longer as: Nephro-Dana Active 2018 [facility] t Rx and Diatx) Give with food. Bumetanide Notes: (Same No Longer As: Bumex) Active 2018 [facility] NIFEdipine 30 mg Notes: (Same No Longer oral tablet, as: Adalat CC, Active 2018 [place] extended release Procardia XL) Give on empty stomach. Take 1 hour before or 2 hours after meal; "Avoid grapefruit and grapefruit juice". Do not crush Benadryl 25 mg, 1 tab, No Longer Route: PO, Drug Active 2018 [place] form: TAB, TID, Dosing Weight 92.227, kg, PRN Itching, Start date: 03/05/19 4:26:00 CDT, Duration: 30 day, Stop date: 04/04/19 4:25:00 CDT heparin Notes: porcine No Longer heparin Active 2018 [facility] zolpidem Notes: (Same No Longer As: Ambien) Active 2018 [facility] tramadol Notes: Not to No Longer hydrochloride 50 exceed Active [address] [facility] MG Oral Tablet 400mg/day. (Same As: Ultram) tizanidine Notes: (Same No Longer As: Zanaflex) Active 2018 [facility] Nitroglycerin 0.4 Notes: (Same No Longer MG Sublingual as:Nitroquick, Active 2018 [facility] Tablet Nitrostat) "Do Not Crush" Sublingual tablet Eszopiclone 3 mg, Route: Inactive PO, Drug form: 2018 [facility] TAB, Bedtime, Dosing Weight 92.227, kg, PRN Insomnia, Start date: 03/04/19 22:42:00 CDT, Duration: 30 day, Stop date: 04/03/19 22:41:00 CDT Albuterol 0.833 Notes: (Same No Longer H MG/ML / as: Duoneb) Active 2018 [facility] Ipratropium [place] 0.167 MG/ML Inhalant Solution Acetaminophen 325 Notes: (Same No Longer MG / Hydrocodone as: Sadorus Active 2018 [facility] Bitartrate 5 MG 325/5) Do not Oral Tablet exceed 4gm/day [Sadorus 5/325] of acetaminophen. Zofran Notes: (Same No Longer as: Zofran) Active 2018 [facility] MEDICATION WASTE Product Size: 4 mg Product Wasted: ___ mg Vancomycin 1 ea, Route: Inactive [facility] Dosing Weight 92.227, kg, Start date: 03/04/19 22:00:00 CDT, Duration: 10 day, Stop date: 03/14/19 21:59:00 CDT, Pharmacy to dose, ABX Indication: Skin/Soft Tissue Infection cefepime Notes: (Same No Longer As: Maxipime) Active 2018 [facility] MEDICATION WASTE Product Size: 1000 mg Product Wasted: ___ mg Calcium Chloride 125 mL, 75 Inactive 0.0014 MEQ/ML / ml/hr, Infuse 2018 [facility] Potassium Over: 1.7 hr, Chloride 0.004 Route: IV, 125, MEQ/ML / Sodium Drug form: Chloride 0.103 SOLN, ONCE, MEQ/ML / Sodium Dosing Weight Lactate 0.028 92.227 kg, MEQ/ML Injectable Start date: Solution 03/04/19 21:22:00 CDT, Stop date: 03/04/19 21:22:00 CDT Insulin Lispro Notes: (Same No Longer as: Humalog) Active 2018 [facility] Roll in palms of hands gently; Do not shake vigorously. WASTE: F/P - Black; E - Municipal Trash Bin Stable for 28 days at room temperature. Expires in days from D ate Glucagon 1 mg, Route: No Longer IM, Drug form: Active 2018 [facility] PDR/INJ, PRN, Dosing Weight 92.227, kg, PRN Blood Glucose Results, Start date: 03/04/19 21:21:00 CDT, Duration: 30 day, Stop date: 04/03/19 21:20:00 CDT Dextrose 50% 25 gm, 50 mL, No Longer Syringe Route: IVP, Active 2018 [facility] Drug Form: INJ, Dosing Weight 92.227, kg, PRN, PRN Blood Glucose Results, Start date: 03/04/19 21:21:00 CDT, Duration: 30 day, Stop date: 04/03/19 21:20:00 CDT Acetaminophen Notes: Do not No Longer exceed 4 Active 2018 [facility] gm/day. (Same as: Tylenol) tizanidine 2 mg 2 mg = 1 cap, Active oral capsule PO, Q8H, PRN 2019 [facility] ast for muscle spasms, # 90 cap, 0 Refill(s) zolpidem 10 mg 10 mg = 1 tab, No Longer oral tablet PO, Bedtime, Active 2018 [facility] PRN as needed for insomnia, 0 Refill(s) eszopiclone 3 mg 3 mg = 1 tab, No Longer oral tablet PO, Bedtime, Active 2018 [facility] PRN for insomnia, 0 Refill(s) Albuterol 0.833 3 mL, Active MG/ML / INHALATION, 2019 I[place]ium Q4H, PRN [place] 0.167 Wheezing, # 30 MG/ML Inhalant ea, 1 Refill(s) Solution NIFEdipine 30 mg 30 mg = 1 tab, Active oral tablet, PO, Before 2018 [facility] t extended release Breakfast, # 30 tab, 0 Refill(s) Acetaminophen 300 1 tab, PO, Q8H, No Longer 02/23 MG / Codeine PRN Pain Score Active 2018 [place] Phosphate 30 MG 6-10, 0 Oral Tablet Refill(s) [Tylenol with Codeine #3] patiromer 8400 MG 8.4 gm, PO, Active Powder for Oral Daily, 0 2018 [facility] Suspension Refill(s) [Veltassa] atorvastatin 10 10 mg = 1 tab, Active H mg oral tablet PO, Bedtime, # 2019 [place] 90 tab, 0 Refill(s) Lactulose 667 20 gm = 30 mL, Active MG/ML Oral PO, After 2018 Solution Dinner, 0 Refill(s) sucroferric 500 mg = 1 tab, Active oxyhydroxide 500 CHEW, [address] [facility] [address] MG Chewable TID-Meals, 0 Tablet [Velphoro] Refill(s) Nitroglycerin 0.4 0.4 mg = 1 tab, Active MG Sublingual SL, Q5Min, PRN 2019 [place] Tablet Chest pain, Give up to 3 doses. Call 911 if pain persists., # 100 tab, 0 Refill(s) tramadol 50 mg = 1 tab, Active hydrochloride 50 PO, Q8H, PRN 2019 [place] MG Oral Tablet Pain Score 6-10, 0 Refill(s) Flumazenil Notes: (Same Inactive as: Romazicon) 2018 [facility] Fentanyl Notes: (Same Inactive as: Sublimaze) 2018 [facility] Preservative free. Hydromorphone Notes: Same as: Inactive H Dilaudid 2019 [facility] Naloxone Notes: Same as Inactive Narcan 2018 [facility] Oxycodone Notes: (Same Inactive as: Roxicodone) 2018 [facility] Acetaminophen Notes: Max Inactive acetaminophen 2018 [facility] 4000 mg/day (4 gm/day). (Same as: Tylenol Extra Strength) Labetalol 10 mg, 2 mL, Inactive Route: IVP, 2018 [facility] Drug form: INJ, Q5Min, Dosing Weight 90.682, kg, PRN Elevated BP, Start date: 02/21/19 14:37:00 CDT, Duration: 5 doses or times, Stop date: 02/22/19 0:00:00 CDT Hydralazine Notes: (Same Inactive as: Apresoline) 2018 [facility] t Push over 5 minutes Diphenhydramine Notes: (Same Inactive as: Benadryl) 2018 [facility] Ondansetron Notes: (Same Inactive as: Zofran) 2018 [facility] MEDICATION WASTE Product Size: 4 mg Product Wasted: ___ mg Meperidine Notes: (Same Inactive As: Demerol) 2018 Benadryl 25 mg, Route: Inactive 02/21/ MH IVP, ONCE, 2018 [facility] Dosing Weight 90.682, kg, PRN Itching, Start date: 02/21/19 14:28:00 CDT phenylephrine Route: IV, Drug Inactive 02/21/ M H (ANES) form: INJ, 2018 ONCE, Stop date: 02/21/19 13:58:00 CDT Acetaminophen 325 Notes: Do not Inactive 02/21/ MH MG / Hydrocodone exceed 4gm/day 2018 [facility] Bitartrate 10 MG of Oral Tablet acetaminophen. (Same as: Sadorus 325/10) Morphine 2 mg, 1 mL, Inactive 02/21/ MH Route: IVP, 2018 [facility] Drug form: SOLN, Q3H, Dosing Weight 90.682, kg, PRN Pain Score 1-3, Start date: 02/21/19 13:41:00 CDT, Duration: 30 day, Stop date: 03/23/19 13:40:00 CDT ePHEDrine (ANES) Route: IV, Drug Inactive MH form: INJ, 2018, Stop date: 02/21/19 13:23:00 CDT metoclopramide Route: IV, Drug Inactive 02/21/ MH (ANES) form: INJ, 2018, Stop date: 02/21/19 13:07:00 CDT lidocaine (ANES) Route: IV, Drug Inactive 02/21/ MH form: [id number], Stop date: 02/21/19 13:07:00 CDT propofol (ANES) Route: IV, Drug Inactive 02/21/ MH form: [id number], Stop date: 02/21/19 13:07:00 CDT fentaNYL (ANES) Route: IV, Drug Inactive 02/21/ MH form: [id number], Stop date: 02/21/19 13:07:00 CDT midazolam (ANES) Route: IV, Drug Inactive 02/21/ MH form: SOLN, 2018, Stop date: 02/21/19 13:07:00 CDT ondansetron Route: IV, Drug Inactive 02/21/ MH (ANES) form: [id number], Stop date: 02/21/19 12:42:00 CDT ceFAZolin (ANES) Route: IV, Drug Inactive form: INJ, 2018 [facility] ONCE, Stop date: 02/21/19 12:42:00 CDT vancomycin (ANES) Route: IV, Drug Inactive 02/21 1000 mg form: INJ, 2018 [facility] Start date: 02/21/19 12:10:00 CDT, Stop date: 02/21/19 13:10:00 CDT Sodium Chloride Route: IV, Inactive 0.9% IV (ANES) Total Volume: 2018 [facility] 1000 mL 1,000, Start date: 02/21/19 11:52:00 CDT, Stop date: 02/21/19 12:52:00 CDT Dextrose 50% 12.5 gm, 25 mL, Inactive Syringe Route: IVP, 2018 [facility] Drug Form: INJ, Dosing Weight 90.682, kg, ONCE, Start date: 02/21/19 11:30:00 CDT, Stop date: 02/21/19 11:30:00 CDT Sodium Chloride 1,000 mL, Rate: Inactive 0.9% IV 1000 mL 25 ml/hr, 2018 [facility] ast Infuse over: 40 hr, Route: IV, Dosing Weight 90.682 kg, Total Volume: 1,000, Start date: 02/21/19 9:49:00 CDT, Duration: 30 day, Stop date: 03/23/19 9:48:00 CDT, 2.11, m2 Ancef + sterile Notes: (Same No Longer 01/29/ H water 20 mL As: Ancef, Active 2018 [facility] Kefzol) MEDICATION WASTE Product Size: 1000 mg Product Wasted: ___ mg Vancomycin 2001 mg: No Longer infuse over 2.5 Active 2018 [facility] t hours For adult patients only: Round to nearest 250 mg per Medical Staff approval MEDICATION WASTE Product Size: 1000 mg Product Wasted: ___ mg Insulin Glargine 36 unit, SUB-Q, Active 100 UNT/ML Daily, 0 2018 [facility] Injectable Refill(s) Solution [Lantus] gabapentin 300 MG 300 mg = 1 cap, Active 01/16/ [place] Oral Capsule PO, Daily, # 30 2019 [place] cap, 3 Refill(s), Pharmacy: [facility] [id number] gabapentin 300 MG See No Longer her Oral Capsule Instructions, 1 Active 2018 [place] ro cap PO after dialysis, # 30 cap, 2 Refill(s), [facility] [id number] Ondansetron 4 mg, Route: Inactive 12/20[facility] IVP, ONCE, 2019 [facility] Dosing Weight 90.966, kg, PRN Nausea & Vomiting, Start date: 12/20/18 9:13:00 CDT Meperidine 12.5 mg, Route: Inactive 12/20[facility] IVP, Q30Min, 2018 [facility] Dosing Weight 90.966, kg, PRN Other -See Comment, For shivering, Start date: 12/20/18 9:13:00 CDT, Duration: 2 doses or times, Stop date: Limited # of times Hydralazine 10 mg, Route: Inactive IVP, Q20Min, 2018 [facility] Dosing Weight 90.966, kg, PRN Elevated BP, Start date: 12/20/18 9:13:00 CDT, Duration: 2 doses or times, Stop date: Limited # of times Naloxone 0.4 mg, Route: Inactive IVP, Q2MIN, 2018 [facility] Dosing Weight 90.966, kg, PRN Narcotic Reversal, Start date: 12/20/18 9:13:00 CDT, Duration: 8 doses or times, Stop date: Limited # of times Diphenhydramine 12.5 mg, Route: Inactive IVP, Drug form: 2018 [place]J, Q6H, Dosing Weight 90.966, kg, PRN Itching, Start date: 12/20/18 9:13:00 CDT, Duration: 30 day, Stop date: 01/19/19 9:12:00 CDT Oxycodone 5 mg, Route: Inactive PO, Drug form: 2018 [facility] TAB, Q4H, Dosing Weight 90.966, kg, PRN Pain Score 4-6, Start date: 12/20/18 9:13:00 CDT, Duration: 30 day, Stop date: 01/19/19 9:12:00 CDT Labetalol 10 mg, Route: Inactive IVP, Q5Min, 2018 [facility] Dosing Weight 90.966, kg, PRN Elevated BP, Start date: 12/20/18 9:13:00 CDT, Duration: 5 doses or times, Stop date: Limited # of times Acetaminophen 1,000 mg, Inactive Route: PO, Drug 2018 [facility] t form: TAB, ONCE, Dosing Weight 90.966, kg, PRN Pain Score 1-3, Start date: 12/20/18 9:13:00 CDT Fentanyl 50 microgram, Inactive Route: IVP, 2018 [facility] Q5Min, Dosing Weight 90.966, kg, PRN Pain Score 7-10, Priority: Routine, Start date: 12/20/18 9:13:00 CDT, Duration: 2 doses or times, Stop date: Limited # of times Flumazenil 0.2 mg, Route: Inactive IVP, PRN, 2018 [facility] Dosing Weight 90.966, kg, PRN Benzodiazepine Reversal, Initial dose, Start date: 12/20/18 9:13:00 CDT, Duration: 30 day, Stop date: 01/19/19 9:12:00 CDT Hydromorphone 0.5 mg, Route: Inactive IVP, Q5Min, 2018 [facility] Dosing Weight 90.966, kg, PRN Pain Score 7-10, Start date: 12/20/18 9:13:00 CDT, Duration: 4 doses or times, Stop date: Limited # of times Acetaminophen 325 Notes: Do not Inactive MG / Hydrocodone exceed 4gm/day 2018 [facility] Bitartrate 10 MG of Oral Tablet acetaminophen. (Same as: Sadorus 325/10) Acetaminophen 325 Notes: (Same Inactive MG / Hydrocodone as: Sadorus 2018 [facility] Bitartrate 5 MG 325/5) Do not Oral Tablet exceed 4gm/day of acetaminophen. Sodium Chloride 500 mL, Rate: Inactive H 0.9% IV 500 mL 25 ml/hr, 2018 [facility] Infuse over: 20 hr, Route: IV, Dosing Weight 90.966 kg, Total Volume: 500, Start date: 12/20/18 7:38:00 CDT, Duration: 1 day, Stop date: 12/21/18 7:37:00 CDT, 2.11, m2 prasugrel 10 mg, PO, Active Daily, 0 2018 [facility] Refill(s) tamsulosin 0.4 mg 0.4 mg = 1 cap, Active oral capsule PO, Daily, # 30 2019 [place] cap, 0 Refill(s) carvedilol 6.25 mg, PO, Active BID, 0 2018 Refill(s) Vancomycin 2001 mg: No Longer infuse over 2.5 Active 2018 [facility] t hours For adult patients only: Round to nearest 250 mg per Medical Staff approval MEDICATION WASTE Product Size: 1000 mg Product Wasted: ___ mg Ancef + sterile Notes: (Same No Longer H water 20 mL As: Ancef, Active 2018 [facility] Kefzol) MEDICATION WASTE Product Size: 1000 mg Product Wasted: ___ mg Vitamin B1 Daily, 0 Active Refill(s) 2018 [facility] bumetanide 2 mg 2 mg = 1 tab, Active oral tablet PO, BID, 0 2019 [facility] Refill(s) Acidophilus Daily, 0 Active Refill(s) 2018 [facility] Aspirin 81 MG 81 mg = 1 tab, Active Enteric Coated PO, Daily, # 90 2019 [place] Tablet tab, 3 Refill(s) Nitroglycerin 0.4 0.4 mg = 1 tab, Active MG Sublingual SL, Q5Min, 0 2018 [facility] Tablet Refill(s) zolpidem 10 mg 10 mg = 1 tab, Active sublingual tablet SL, Bedtime, 2019 [place] PRN for sleep, 0 Refill(s) Auryxia 420 mg, PO, 0 Active Refill(s) 2018 [facility] NIFEdipine 30 mg 30 mg = 1 tab, Active oral tablet, PO, Daily, 0 2019 [facility] ast extended release Refill(s) sevelamer 800 mg = 1 tab, Active carbonate 800 MG PO, 0 Refill(s) 2018 [facility] Oral Tablet [Renvela] pregabalin 50 MG 50 mg = 1 cap, Active Oral Capsule PO, BID, 0 2018 [facility] t [Lyrica] Refill(s) Insulin Glargine 35 units, Active 100 UNT/ML SUB-Q, Daily, 0 2018 [facility] Injectable Refill(s) Solution [Lantus] Allergies, Adverse Reactions, Alerts Substance Category Reaction Severity Reaction Status Date Comments S ource type Reported No Known Assertion Drug Medication allergy [facility] Allergies Immunizations No Data Provided for This Section Results Order Name Results Value Reference Date Interpretation Comments Lata rce Range Gram Stain No Wbc'S Or Organisms Seen 03/07 Report Many RBC's [facility] C Synov w/GS No Growth; 03/07 [facility] CHEM PANEL Uric Acid 2.1 3.8 - 8.0 03/06 [facility] HEMATOLOGY INR 0.99 0.85 - 03/06 1.17 [facility] HEMATOLOGY PT 12.9 12.0 - 03/06 14.7 [facility] HEMATOLOGY PTT 43.3 22.9 - 03/06 35.8 [facility] HEMATOLOGY Sed Rate >100 0 - 15 03/06 [facility] IMMUNOLOGY Cyc Cit Pep <0.5 <=2.9 03/06 Ab unit/mL [facility] IMMUNOLOGY RF Qnt <10 0 - 20 03/06 [facility] IMMUNOLOGY C-REACTIVE 138.0 <=2.9 mg/L 03/06 PROTEIN /2018 [facility] Culture: Culture In 03/06 Anaerobic Progress [facility] CHEM PANEL eGFR 13 03/06 Result Comment: The [facility] eGFR is calculated using the CKD-EPI formula. [...] CHEM PANEL Potassium 4.7 3.5 - 5.1 06/12 MH Lvl /2019 [facility] CHEM PANEL Chloride Lvl 102 95 - 109 / /2018 [facility] CHEM PANEL Creatinine 4.69 0.50 - 06/ MH Lvl 1.40 /2019 [facility] CHEM PANEL Sodium Lvl 137 135 - 145 / [facility] CHEM PANEL Glucose Lvl 162 70 - 99 / [facility] CHEM PANEL BUN 15 7 - 22 / [facility] CHEM PANEL CO2 24 24 - 32 / [facility] CHEM PANEL Calcium Lvl 8.5 8.5 - 10.5 03/06 [facility] CHEM PANEL AGAP 15.7 10.0 - 06/ MH 20.0 /2019 [facility] HEMATOLOGY Eosinophils 0.3 0.0 - 0.5 /12 MH # /2019 [facility] HEMATOLOGY Basophils # 0.1 0.0 - 0.2 / /2018 [facility] HEMATOLOGY Neutrophils 3.7 1.5 - 8.1 / MH # /2019 [facility] HEMATOLOGY Lymphocytes 0.8 1.0 - 5.5 / MH # /2019 [facility] HEMATOLOGY Monocytes # 0.5 0.0 - 0.8 / /2018 [facility] HEMATOLOGY Lymphocytes 15.8 20.0 - 06 MH 40.0 /2019 [facility] HEMATOLOGY Segs 68.7 45.0 - / MH 75.0 /2019 [facility] HEMATOLOGY Basophils 1.9 0.0 - 1.0 / /2018 [facility] HEMATOLOGY Eosinophils 4.9 0.0 - 4.0 / [facility] HEMATOLOGY Monocytes 8.7 2.0 - 12.0 / [facility] HEMATOLOGY RDW 15.4 11.5 - / MH 14.5 /2019 [facility] HEMATOLOGY MCH 30.1 27.0 - 03/06 MH 31.0 /2018 [facility] HEMATOLOGY Platelet 351 133 - 450 / [facility] HEMATOLOGY Hgb 9.6 14.0 - 06/ MH 18.0 /2019 [facility] HEMATOLOGY MCHC 32.6 32.0 - 06/ MH 36.0 [facility] HEMATOLOGY Hct 29.4 42.0 - 03/06 54.0 2019 [facility] HEMATOLOGY MCV 92.2 80.0 - 03/06 94.0 [facility] HEMATOLOGY MPV 7.2 7.4 - 10.4 03/06 [facility] HEMATOLOGY RBC 3.19 4.70 - 03/06 MH 6.10 [facility] HEMATOLOGY WBC 5.4 3.7 - 10.4 03/06 [facility] IMMUNOLOGY Hep Bs Ag Negative Negative 03/05 *NA* /2018 [facility] (03/05/19 8:30 AM) GENTAMICIN Gram Stain Rare Gram Positive Cocci 03/05 MH :[facility]US[facility]:PT:I Report Many [facility]BC[facility] Culture: Few Enterobacter cloacae 03/05 MH :[facility]USC:PT:I Wound/Absces Few Klebsiella pneumoniae ssp pneumoniae [facility] s w/Gram Few Pseudomonas aeruginosa QN:EDDY Stain Few Citrobacter koseri Growth In Subculture Broth Only : Staphylococcus Species , Not S. aureus GENTAMICIN Citrobacter Citrobacte 03/05 MH :SUSC:PT:I koseri r koseri [facility] QN:EDDY GENTAMICIN Pseudomonas Pseudomona 03/05 MH :SUSC:PT:I aeruginosa s [facility] aeruginosa QN:EDDY GENTAMICIN Klebsiella Klebsiella 03/05 MH :SUSC:PT:I pneumoniae pneumoniae [facility] SOLATE:ORD ssp ssp QN:EDDY pneumoniae pneumoniae GENTAMICIN Enterobacter Enterobact 03/05 MH :SUSC:PT:I cloacae er cloacae [facility] QN:EDDY CHEM PANEL Uric Acid 8.1 3.8 - 8.0 03/05 [facility] CHEM PANEL Lactic Acid 0.8 0.5 - 2.2 03/05 Lvl [facility] CHEM PANEL AST 19 0 - 37 03/05 [facility] CHEM PANEL Bili Total 0.4 0.2 - 1.3 03/05 [facility] CHEM PANEL eGFR 4 03/05 Result Comment: [facility] eGFR is calculated using the CKD-EPI formula. [...] PANEL ALT 15 0 - 65 03/05 [facility] CHEM PANEL Albumin Lvl 2.5 3.5 - 5.0 03/05 [facility] CHEM PANEL Total 6.0 6.4 - 8.4 03/05 Protein [facility] CHEM PANEL Alk Phos 303 39 - 136 03/05 [facility] CHEM PANEL Creatinine 12.60 0.50 - 03/05 Lvl 1.40 [facility] CHEM PANEL BUN 55 7 - 22 03/05 [facility] CHEM PANEL Glucose Lvl 157 70 - 99 03/05 [facility] CHEM PANEL Chloride Lvl 100 95 - 109 03/05 [facility] CHEM PANEL Potassium 4.3 3.5 - 5.1 03/05 Lvl /2018 [facility] CHEM PANEL Sodium Lvl 135 135 - 145 03/05 [facility] CHEM PANEL Calcium Lvl 7.6 8.5 - 10.5 03/05 [facility] CHEM PANEL CO2 25 24 - 32 03/05 [facility] CHEM PANEL AGAP 14.3 10.0 - 03/05 MH 20.0 [facility] CHEM PANEL B/C Ratio 4 6 - 25 03/05 [facility] CHEM PANEL Globulin 3.5 2.7 - 4.2 03/05 [facility] CHEM PANEL A/G Ratio 0.7 0.7 - 1.6 03/05 [facility] HEMATOLOGY Basophils 2.3 0.0 - 1.0 03/05 [facility] HEMATOLOGY Neutrophils 3.3 1.5 - 8.1 03/05 MH # /2019 [facility] HEMATOLOGY Lymphocytes 1.0 1.0 - 5.5 06/11 MH # /2018 [facility] HEMATOLOGY Monocytes # 0.6 0.0 - 0.8 03/05 [facility] HEMATOLOGY Eosinophils 0.3 0.0 - 0.5 03/05 MH # /2018 [facility] HEMATOLOGY Segs 63.2 45.0 - 03/05 MH 75.0 /2018 [facility] HEMATOLOGY Lymphocytes 18.1 20.0 - 03/05 MH 40.0 /2018 [facility] HEMATOLOGY Basophils # 0.1 0.0 - 0.2 03/05 [facility] HEMATOLOGY Monocytes 11.0 2.0 - 12.0 03/05 [facility] HEMATOLOGY Eosinophils 5.4 0.0 - 4.0 03/05 [facility] HEMATOLOGY MCH 29.8 27.0 - 03/05 MH 31.0 [facility] HEMATOLOGY MCHC 33.1 32.0 - 03/05 MH 36.0 [facility] HEMATOLOGY WBC 5.3 3.7 - 10.4 03/05 [facility] HEMATOLOGY RBC 2.61 4.70 - 03/05 MH 6. [facility] HEMATOLOGY Hgb 7.8 14.0 - 03/05 MH 18.0 [facility] HEMATOLOGY Hct 23.5 42.0 - 03/05 MH 54.0 [facility] HEMATOLOGY MCV 90.1 80.0 - 03/05 MH 94.0 [facility] HEMATOLOGY MPV 7.6 7.4 - 10.4 03/05 [facility] HEMATOLOGY Platelet 295 133 - 450 03/05 [facility] HEMATOLOGY RDW 15.6 11.5 - 03/05 MH 14. [facility] HEMATOLOGY Sed Rate >100 mm/hr 0 - 15 03/05 [facility] IMMUNOLOGY C-REACTIVE 202.0 <=2.9 mg/L 03/05 [facility] HEMATOLOGY WBC 6.0 3.7 - 10.4 02/21 [facility] HEMATOLOGY Hct 33.0 42.0 - 02/21 MH 54.0 [facility] HEMATOLOGY RBC 3.64 4.70 - 02/21 MH 6. [facility] HEMATOLOGY MCV 90.5 80.0 - 02/21 MH 94.0 [facility] HEMATOLOGY Hgb 10.8 14.0 - 02/21 MH 18.0 [facility] HEMATOLOGY RDW 14.6 11.5 - 02/21 MH 14. [facility] HEMATOLOGY Platelet 224 133 - 450 02/21 [facility] HEMATOLOGY MCHC 32.9 32.0 - 02/21 MH 36.0 /2018 [facility] HEMATOLOGY MCH 29.8 27.0 - 02/21 MH 31.0 [facility] HEMATOLOGY MPV 7.8 7.4 - 10.4 02/21 [facility] BLOOD BANK Antibody Negative 02/21 RESULTS Scrn (02/21/19 10:03 AM) /2018 [facility] BLOOD BANK ABO/Rh O POS 02/21 MH RESULTS /2018 [facility] ELECTROLYT Potassium 4.3 3.5 - 5.1 02/21 ES Lvl /2018 [facility] CHEM PANEL eGFR 7 02/21 Result Comment: [facility] eGFR is calculated using the CKD-EPI formula. [...] AGAP 14.2 10.0 - 02/21 MH 20.0 [facility] CHEM PANEL BUN 35 7 - 22 02/21 [facility] CHEM PANEL Chloride Lvl 104 95 - 109 02/21 [facility] CHEM PANEL Calcium Lvl 8.4 8.5 - 10.5 02/21 [facility] CHEM PANEL CO2 26 24 - 32 02/21 [facility] CHEM PANEL Creatinine 7.88 0.50 - 02/21 MH Lvl 1.40 /2018 [facility] CHEM PANEL Glucose Lvl 75 70 - 99 02/21 [facility] CHEM PANEL Potassium 4.2 3.5 - 5.1 02/21 Lvl [facility] CHEM PANEL Sodium Lvl 140 135 - 145 02/21 [facility] BLOOD BANK Antibody Negative 01/29 RESULTS Scrn (01/29/19 10:27 AM) /2018 [facility] BLOOD BANK ABO/Rh O POS 01/29 MH RESULTS /2018 [facility] CHEM PANEL eGFR 6 01/29 Result Comment: [facility] eGFR is calculated using the CKD-EPI formula. [...] PANEL Chloride Lvl 104 95 - 109 01/29 [facility] CHEM PANEL Potassium 4.3 3.5 - 5.1 / Lvl /2018 [facility] CHEM PANEL CO2 27 24 - 32 01/29 [facility] CHEM PANEL Calcium Lvl 8.2 8.5 - 10.5 01/29 [facility] CHEM PANEL Glucose Lvl 113 70 - 99 01/29 [facility] CHEM PANEL Sodium Lvl 140 135 - 145 01/29 [facility] CHEM PANEL Creatinine 8.24 0.50 - 01/29 Lvl 1.40 /2018 [facility] CHEM PANEL BUN 45 7 - 22 / [facility] CHEM PANEL AGAP 13.3 10.0 - 05/ MH 20.0 /2019 [facility] HEMATOLOGY Monocytes # 0.6 0.0 - 0.8 05/ [facility] HEMATOLOGY Eosinophils 0.3 0.0 - 0.5 / # /2019 [facility] HEMATOLOGY Basophils # 0.1 0.0 - 0.2 / [facility] HEMATOLOGY Monocytes 11.3 2.0 - 12.0 / /2018 [facility] HEMATOLOGY Basophils 1.5 0.0 - 1.0 / [facility] HEMATOLOGY Eosinophils 5.5 0.0 - 4.0 05/ /2018 [facility] HEMATOLOGY Lymphocytes 15.4 20.0 - 01/29 MH 40.0 /2018 [facility] HEMATOLOGY Segs 66.3 45.0 - 01/29 75.0 /2018 [facility] HEMATOLOGY Neutrophils 3.6 1.5 - 8.1 / MH # /2018 [facility] HEMATOLOGY Lymphocytes 0.8 1.0 - 5.5 / MH # /2018 [facility] HEMATOLOGY PTT 43.7 22.9 - 01/29 MH 35.8 /2018 [facility] HEMATOLOGY INR 1.00 0.85 - 01/29 MH 1.17 /2018 [facility] HEMATOLOGY PT 13.0 12.0 - 01/29 MH 14.7 /2018 [facility] HEMATOLOGY Platelet 243 133 - 450 01/29 /2018 [facility] HEMATOLOGY MPV 7.5 7.4 - 10.4 01/29 /2018 [facility] HEMATOLOGY WBC 5.4 3.7 - 10.4 01/29 /2018 [facility] HEMATOLOGY RBC 3.90 4.70 - 01/29 6.10 [facility] HEMATOLOGY MCH 30.3 27.0 - 01/29 31.0 /2018 [facility] HEMATOLOGY MCHC 33.6 32.0 - 01/29 MH 36.0 /2018 [facility] HEMATOLOGY Hgb 11.8 14.0 - 01/29 MH 18.0 /2018 [facility] HEMATOLOGY MCV 90.1 80.0 - 01/29 94.0 /2018 [facility] HEMATOLOGY Hct 35.1 42.0 - 01/29 MH 54.0 /2018 [facility] HEMATOLOGY RDW 14.6 11.5 - 01/29 MH 14.5 /2018 [facility] BLOOD BANK Antibody Negative 12/11 RESULTS Scrn (12/11/18 12:35 PM) /2018 [facility] BLOOD BANK ABO/Rh O POS 12/11 RESULTS /2018 [facility] CHEM PANEL eGFR 6 12/11 Result Comment: [facility] eGFR is calculated using the CKD-EPI formula. [...] Glucose Lvl 62 70 - 99 12/11 [facility] CHEM PANEL BUN 62 7 - 22 12/11 [facility] CHEM PANEL Calcium Lvl 8.1 8.5 - 10.5 12/11 [facility] CHEM PANEL CO2 27 24 - 32 12/11 [facility] CHEM PANEL Chloride Lvl 105 95 - 109 12/11 [facility] CHEM PANEL Potassium 6.0 3.5 - 5.1 12/11 Lvl /2018 [facility] CHEM PANEL Sodium Lvl 140 135 - 145 12/11 [facility] CHEM PANEL Creatinine 8.46 0.50 - 12/11 Lvl 1.40 [facility] CHEM PANEL AGAP 14.0 10.0 - 12/11 MH 20.0 [facility] HEMATOLOGY Basophils 1.9 0.0 - 1.0 12/11 [facility] HEMATOLOGY Neutrophils 2.7 1.5 - 8.1 12/11 MH # /2018 [facility] HEMATOLOGY Eosinophils 4.4 0.0 - 4.0 12/11 [facility] HEMATOLOGY Monocytes 11.6 2.0 - 12.0 12/11 [facility] HEMATOLOGY Basophils # 0.1 0.0 - 0.2 12/11 [facility] HEMATOLOGY Lymphocytes 1.1 1.0 - 5.5 12/11 MH # /2018 [facility] HEMATOLOGY Eosinophils 0.2 0.0 - 0.5 12/11 MH # /2019 [facility] HEMATOLOGY Monocytes # 0.5 0.0 - 0.8 12/11 [facility] HEMATOLOGY Lymphocytes 23.7 20.0 - 03 MH 40.0 /2019 [facility] HEMATOLOGY Segs 58.4 45.0 - 12/11 MH 75.0 /2018 [facility] HEMATOLOGY PTT 42.9 22.9 - 12/11 MH 35.8 /2018 [facility] HEMATOLOGY INR 1.04 0.85 - 12/11 MH 1.17 /2018 [facility] HEMATOLOGY PT 13.4 12.0 - 12/11 MH 14.7 [facility] HEMATOLOGY MCHC 32.3 32.0 - 03/19 36.0 [facility] RDW 16.9 11.5 - 12/11 14.5 [facility] MCH 30.1 27.0 - 12/11 31.0 [facility] Platelet 214 133 - 450 12/11 [facility] MPV 8.1 7.4 - 10.4 12/11 [facility] MCV 93.1 80.0 - 12/11 94.0 [facility] Hgb 11.0 14.0 - 12/11 18.0 [facility] Hct 34.1 42.0 - 12/11 54.0 [facility] WBC 4.6 3.7 - 10.4 12/11 [facility] RBC 3.66 4.70 - 12/11 6.10 [facility] Hgb A1C 5.0 <=5.6 % 12/11 [facility] Pathology Reports No Data Provided for This Section Diagnostic Reports Report Value Date Source Ankle wo contrast MRI Clinical Indication: Right a nkle pain and swelling - history of gout; rule out osteomyelitis 03/06/2019 [facility] Comparison: Right ankle series 03/04/2019 TECHNIQUE: Multiplanar T1, T2 and PD weighted se quences of the right ankle. IV CONTRAST TYPE and VOLUME: None FINDINGS: There is extensive hypointen se T1 and hyperintense T2 signal alteration involving the distal tibia, distal fibula, and talus. Smaller focus of marrow signal alteration also noted involving the anterior facet of the calcaneus. Frag mented appearance and large erosion of the talar head. Smaller erosion of the medial malleolus. Moderate complex tibiotalar joint effusion. Small subtalar joint effusion also noted extending into the posterior subtalar recess. Diffuse ankle soft tissue swelling. No organized fluid collections to suggest an abscess. Impression: Extensive marrow signal abno rmality involving the distal tibia, distal fibula, talus and to a lesser extent the calcaneus with associated soft tissue swelling and complex appearing joint effusions. Larg e erosion of the talus and s maller erosion in the medial malleolus also noted. Findings are consistent with provided history of gout. However, superimposed osteomyelitis/septic arthropathy cannot be exc luded on the basis of this e xam. Consider correlation with percutaneous fluid sampling and analysis. SL: [id number] Foot wo contrast MRI Clinical Indication: - hist ory of gout , right foot and ankle pain 03/06/2019 [facility] Comparison: Right ankle series 03/04/2019 TECHNIQUE: Multiplanar T1, T2 and PD weighted se quences of the right foot. IV CONTRAST TYPE and VOLUME: None FINDINGS: No marrow signal alteration of the imaged foot to suggest osteomyelitis. No acute bony contusion or fracture. Dorsal subcutaneous edema. No organized fluid co llections. IMPRESSION: No evidence for osteomyelitis of the right image d right foot. Dorsal subcutaneous edema. No abscess. SL: [id number] Arthrocentesis small Please discard the moderate sedation portion of the report. Moderate sedation was not utilized during this exam. 03/06/2019 [facility] Joint DX PROCEDURE: Sonographic guided biopsy of right ankle. INDICATION: Other- See Reaso n for Consult - Right ankle swelling, r/o pseudogout vs septic joint.. COMPARISON: Magnetic resonance imaging right ank le 03/07/2019 MODERATE SEDATION: I superv ised moderate sedation during this procedure. The patient was monitored by nurse using automated blood pressure, EKG and pulse oximetry. The moderate sedation record is perma nently stored in the [employer] information system. The personal supervised moderate sedation time was minutes. Medications administered: mg of IV Versed and mi crograms of IV Fentanyl. PROCEDURE: Sonographic was used to eval uate potential biopsy site. Preliminary sonographic imaging demonstrates small complex ankle joint effusion. The procedure, risks, benefi ts and alternatives were discussed. Informed consent was obtained. Timeout was performed prior to the procedure. The overlying skin was steri timothy prepped and draped. 1% lidocaine was used for local anesthesia. Using imaging guidance, a 21-gauge needle was advanced into the right ankle joint. Images were obtained t o document needle positions for permanent recording and reporting. Only approximately 1 mL of blood-tinged synovial fluid could be aspirated. The samples were immediately submitted to pathology departme for requested analysis. T here were no evident complications and the patient had no complaints. Pressure was applied at the puncture site with adequate hemostasis. Final pathology results are pending. IMPRESSION: 1. Technically successful sonographically guide d right ankle arthrocentesis. Ankle 3 views DX Patient Name: MARNIE LYLES 03/04/2019 [facility] : 1960; Age: 58 years y/o Male MR: [id number] Study: 3 view examination of the right ankle jordan ed 03/04/2019. Clinical Indication: - swelling of R ankle; Comparison: None There is marked soft tissue swelling about the right ankle. There is some bony destruction to the medial aspect of the right distal tibial epiphysis and to the medial superior aspect of the talus. There is fracturing of the mid an d medial superior aspect of the talus with slight depression at the mid superior aspect of the talus. This is felt to be due to a nonspecific erosive arthritis of the right a nkle joint and cannot exclud e infectious change. There is a mild widening to the anterior right ankle joint. Mild to moderate calcaneal spurring at the plantar fascia tendon insertion site. Degenerative changes are seen about the tarsal bones. Vascular calcification seen about the right ankle and visualized right foot and distal calf. SL: [id number] Chest 2 views DX Chest 2 views DX 12/11/2018 [facility] CLINICAL HISTORY: Coughing - pre-op COMPARISON: none FINDINGS: SUPPORT DEVICES: Right IJ du al-lumen catheter terminates in the region of the SVC. LUNGS: Lungs are reasonably well inflated. Small bibasilar effusions. Lungs are clear. No pneumothorax is evident. CARDIOVASCULAR: Cardiac silh ouette size is normal. Pulmonary vasculature is within normal limits. MEDIASTINUM/TONY: Trachea is midline. No contour abnormality is noted. OSSEOUS STRUCTURES: No acute bony abnormality is noted. SOFT TISSUES: No significant soft tissue abnorma lity is noted. IMPRESSION: Small bibasilar effusions. No other significant abnormality is noted. SL: [id number] Consultation Notes No Data Provided for This Section Discharge Summaries No Data Provided for This Section History and Physicals No Data Provided for This Section Vital Signs Vital Sign Value Date Comments Source Respitory Rate 18 03/07/2019 [facility] Systolic (mm Hg) 149 03/07/2019 [facility] t Diastolic (mm Hg) 69 03/07/2019 [facility] st Temperature Oral (F) 98.2 F 03/07/2019 [facility] Rate 69 03/07/2019 [facility] Respitory Rate 12 03/07/2019 [facility] Respitory Rate 18 03/07/2019 [facility] Systolic (mm Hg) 159 03/07/2019 [facility] t Diastolic (mm Hg) 68 03/07/[address] Heart Rate 68 03/07/2019 [facility] Temperature Oral (F) 97.6 F 03/07/2019 [facility] Systolic (mm Hg) 157 03/07/2019 [facility] Diastolic (mm Hg) 67 03/07/[address] Heart Rate 69 03/07/2019 [facility] Temperature Oral (F) 98.3 F 03/07/2019 [facility] Height 172.72 cm 03/04/2019 [facility] Weight 92.227 03/04/2019 [facility] BMI Calculated 30.92 03/04/2019 [facility] Respitory Rate 16 02/21/2019 [facility] Systolic (mm Hg) 103 02/21/2019 [facility] Diastolic (mm Hg) 51 02/21/[address] Systolic (mm Hg) 98 02/21/2019 [facility] Diastolic (mm Hg) 52 02/21/[address] Respitory Rate 16 02/21/2019 [facility] Systolic (mm Hg) 94 02/21/2019 [facility] Diastolic (mm Hg) 50 02/21/[address] Respitory Rate 13 02/21/2019 [facility] Heart Rate 66 01/29/2019 [facility] Temperature Oral (F) 97.5 F 01/29/2019 [facility] BMI Calculated 30.4 01/29/2019 [facility] Weight 90.682 01/29/2019 [facility] Height 172.72 cm 01/29/2019 [facility] Systolic (mm Hg) 133 12/20/2018 [facility] Diastolic (mm Hg) 57 12/20/[address] Respitory Rate 13 12/20/2018 [facility] Respitory Rate 14 12/20/2018 [facility] Systolic (mm Hg) 142 12/20/2018 [facility] Diastolic (mm Hg) 60 12/20/[address] Respitory Rate 16 12/20/2018 [facility] Systolic (mm Hg) 123 12/20/2018 [facility] Diastolic (mm Hg) 66 12/20/[address] Temperature Oral (F) 97.3 F 12/20/2018 [facility] Height 172.72 cm 12/11/2018 [facility] BMI Calculated 30.49 12/11/2018 [facility] Weight 90.966 12/11/2018 [facility] Temperature Oral (F) 97.8 F 12/11/2018 [facility] Heart Rate 69 12/11/2018 [facility] Encounters Location Location Encounter Encounter Reason Attending ADM DC Stat us Source Details Type Number For Provider Date Date Visit [facility] Surgery [id number] Stephan 12/20 12/20 [facility] Outpatient [id number] Juventino 12/25 Active [facility] Ganesh MNA Phone [id number] 01/15 01/17 Misc her Neurology [facility] [place] [id number] Juventino 01/31 Active [facility] Ganesh MNA Ambulatory [id number] Juventino 01/31 01/31 [facility] [place] Surgery [id number] Stephan 02/21 02/21 [facility] Inpatient [id number] Rolan Rice 03/04 03/07 [facility] Procedures Procedure Code Date Perfomer Comments Source [id number] [id number] [id number] [facility] arteriovenous fistula operation Assessment and Plan Assessment and Plan Date Source Extracted from:Title: History and Physical 03/07/2019 [facility] Author: Veena De La Rosa MD Date: 03/04/19 58-year-old male with history of ESRD, t ype 2 diabetes, hypertension, CAD status post stentswho presented to a freestanding ED in [place] complaining of swelling and purulent drainage coming from his right AV fistula. 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 Sexual Sexually active: No. Exercise 1 Employment/School Status: Employed. Work/School description: [employer] Alcohol Current, Type Wine. Frequency: 1-2 times per week.2 Smoking Status Former smoker; Type: Cigarettes; Exposur e to Tobacco Smoke None; Cigarette Smoking Last 365 Days No; Reg Smoking Cessation Counseling No; Other Tobacco Frequency Pt. quit in 2016.; entered on: 03/04/19 [id number] Social History TypeResponse 12/11/2018 [facility] Substance Abuse Use: None. Employment/School Status: Employed. Work/School description: [employer] . Alcohol Current, Type Wine.1 Smoking Status Former smoker; Type: Cigarettes; Exposur e to Tobacco Smoke None; Cigarette Smoking Last 365 Days No; Reg Smoking Cessation Counseling No; Other Tobacco Frequency Pt. quit in 2016.; entered on: 01/29/19 1Occasionally Family History No Data Provided for This Section Advance Directives No Data Provided for This Section Functional Status No Data Provided for This Section
--- OUTSIDE RECORDS SUMMARY | 2020-03-05 10:46 | XMS REPORT | Continuity of Care Document ---
:1960 Author Organization [facility] t Address [address] [place] [address] Care Team Providers Name Role Phone Estephania BRAGG Primary Care Physician Pato RN Attending Clinician Unavailable Zain Attending Clinician Unavailable Lolly DONOHUE Attending Clinician Unavailable Aamir Xie MD Attending Clinician Gene CANCHOLA Attending Clinician Unavailable Aashish Dixon MD Attending Clinician Fer [facility] Attending Clinician Unavailable Shawn BRAGG TMagdalena Attending Clinician Marylou BRAGG P. Attending Clinician Telly BRAGG Attending Clinician Alexa BRAGG Attending Clinician Maryam BRAGG, J. Attending Clinician Stephane Flores CRNA Attending Clinician Josefina RN Attending Clinician Unavailable Robert Rice Attending Clinician Kevin Ruiz Attending Clinician Edward Obrien Attending Clinician MARYLOU Admitting Clinician Unavailable Robert Rice Admitting Clinician Payers Payer Name Policy Policy Number Effective Expiration Source Type Date Date BCBSBCBS CHOICE xxxxxxxxxxxx 2019 [place] PPO/FEDERAL EMPL 00:00:00 Methodis t [id number]/09/[address] [place] [address] MEDICAIDMEDICAIDxxxxx xxxxxxxxx 2019 Sascha soto xxxx2018-Present 00:00:00 Met pedro Medicaid MEDICAREMEDICARE PART xxxxxxxxxxx 2017 Jhonny Crawford AND 00:00:00 [facility]xxx2017[facility] Condition Condition Condition Status Onset Resolution Last Treating Co mments Source Name Details Category Date Date Treatment Clinician Date Charcot Charcot Disease Active 2018-09 [place] ankle, ankle, 0-15 Methodi right right 00:00: st 00 Non-healin Non-healin Disease Active Clarita cavazos g ulcer of g ulcer of 9-11 Me thodi ankle, ankle, 00:00: st right, right, 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 AV GRAFT Diagnosis Active 2019-03-11 M emoria MALFUNCTIO 6-10 22:05:00 l N AV GRAFT 00:00: Braulio n MALFUNCTIO 00 N Active 03/04/2019 [facility] RIGHT UE Diagnosis Active 2019-03-04 M emoria AV FISTULA 6-10 17:22:00 l MALFUNCTIO RIGHT UE 00:00: Jay ramosann N AV FISTULA 00 MALFUNCTIO N Active 03/04/2019 [facility] UNK Diagnosis Active 2019-04-23 Mem oria 4-16 13:47:00 l UNK 00:00: Ganesh 00 Active 01/08/2019 [facility] N18.6 Diagnosis Active 2018-12-20 Mem oria 3-01 07:30:00 l N18.6 00:00: [place] 00 Active 11/23/2018 [facility] Mood Mood Disease Active [place] disorder disorder -31 Method i due to a due to a 00:00: st general general 00 medical medical condition condition Dyspnea Dyspnea Disease Active 2017-09 [place] 2-11 Methodi 00:00: st 00 SABAS SABAS Disease Active 2017-09 [place] (obstructi (obstructi 2-11 Me thodi ve sleep ve sleep 00:00: st apnea) apnea) 00 COPD COPD Disease Active 2017-09 [place] (chronic (chronic 2-11 Method i obstructiv obstructiv 00:00: st e e 00 pulmonary pulmonary disease) disease) with acute with acute bronchitis bronchitis Pneumonia Pneumonia Disease Active 2017-09 Sascha soto 10-23 Methodi 00:00: st 00 Encephalop Encephalop Disease Active 2017-09 H macy aranda 0 Methodi 00:00: st 00 Unspecifie Problem 2019-03-09 M emoria d 22:22:51 l complicati Braulio n on of Unspecifie cardiac d and complicati vascular on of prosthetic cardiac device, and implant vascular and graft, prosthetic initial device, encounter implant and graft, initial encounter 03/09/2019 [facility] Heart Problem Resolve 2019-03-09 Fernie edi failure d 22:22:51 l (disorder) Heart Meghna nn failure (disorder) Resolved Problem 03/09/2019 [facility] Myocardial Problem Resolve 2019-03-09 Memoria infarction d 22:22:51 l (disorder) Braulio n Myocardial infarction (disorder) Resolved Problem 03/09/2019 [facility] Diabetes Problem Active 2019-03-09 Mem oria mellitus 22:22:51 l (disorder) Diabetes He rmann mellitus (disorder) Active Problem 03/09/2019 [facility] Dyspnea on Problem Active 2019-03-09 M emoria exertion 22:22:51 l (finding) Dyspnea Herm barbara on exertion (finding) Active Problem 03/09/2019 [facility] Hypertensi Problem Active 2019-03-09 M emoria ve 22:22:51 l disorder, [place] systemic Hypertensi arterial ve (disorder) disorder, systemic arterial (disorder) Active Problem 03/09/2019 [facility] Sleep Problem Active 2019-03-09 Memor ia apnea 22:22:51 l (finding) Sleep Braulio n apnea (finding) Active Problem 03/09/2019 [facility] Hand pain Problem Active 2019-03-09 Me moria (finding) 22:22:51 l Hand Ganesh pain (finding) Active Problem 03/09/2019 [facility] Paresthesi Problem Active 2019-03-09 M emoria a 22:22:51 l (finding) [place] Paresthesi a (finding) Active Problem 03/09/2019 [facility] Simple Problem Active 2019-03-09 Memor ia obesity 22:22:51 l (disorder) Simple Herm barbara obesity (disorder) Active Problem 03/09/2019 [facility] Sudden Problem Active 2019-03-09 Memor ia 22:22:51 l (finding) Sudden Meghna nn (finding) Active Problem 03/09/2019 [facility] MECH COMPL Diagnosis Active 2019-03-11 Memoria OF 22:05:00 l SURGICALLY [facility] Braulio n CREATED COMPL OF ARTERIO SURGICALLY CREATED ARTERIO Active [facility] UNSP COMP Diagnosis Active 2019-03-04 Memoria OF CARDIAC 17:22:00 l AND UNSP [place] VASCULAR COMP OF PROSTH CARDIAC AND VASCULAR PROSTH Active [facility] TYPE 2 Diagnosis Active 2019-03-05 Mem oria DIABETES 08:15:00 l MELLITUS TYPE 2 Braulio n WITH DIABETES HYPERGLYCE MELLITUS WITH HYPERGLYCE Active [facility] PROTEINURI Diagnosis Active 2019-03-05 Memoria A, 08:15:00 l UNSPECIFIE Braulio n D PROTEINURI A, UNSPECIFIE D Active [facility] History of History of Disease Active Overview : [place] blood blood in Methodi transfusio transfusio n n 2016. Wears Wears Disease Active [place] glasses glasses Methodi st Never Never Disease Active [place] exercises exercises Meth megan st Immunizati Immunizati Disease Active [place] ons up to ons up to Meth megan date date st ESRD (end ESRD (end Disease Active Sascha ston stage stage Methodi renal renal st disease) disease) on on dialysis dialysis Allergies, Adverse Reactions, Alerts Allergy Allergy Status Severity Reaction(s) Onset Inactive Treating Comm ents Source Name Type Date Date Clinician No Known No Known Active Memori a Medicati Medicati l on on Ganesh Allergbismark Allergbismark s s Family History Family Member Diagnosis Comments Start Date Stop Date Source Natural brother Cirrhosis [facility] ethodist Natural brother Diabetes [facility] ethodist Natural father Heart disease [place] Orthodox Natural father Hypertension [facility] Natural father Stroke [facility] thodist Natural mother Diabetes [place] [facility] thodist Natural mother Hypertension [facility] Natural mother Kidney disease Ana bernard Jung Social History Social Habit Start Date Stop Date Quantity Comments Source Sex Assigned At [facility] ethodist Cigarettes smoked 2019-07-09 2019-07-09 Heladio Jung current (pack per 00:00:00 00:00:00 day) - Reported Alcohol intake 2019-07-09 2019-07-09 Current drinker [place] [facility] 00:00:00 00:00:00 of alcohol (finding) Social History 2018-12-11 2018-12-11 [facility] Clarita peoples 17:48:18 17:48:18 Alcohol Comment 2017-11-02 2017-11-02 stopped in [facility] ethodist 00:00:00 00:00:July. History of tobacco 2016-01-24 Current smoker [place] Orthodox use 00:00:00 Smoking Status Start Date Stop Date Source Former smoker 2019-07-09 00:00:00 2019-07-09 00:00:00 [place] Orthodox Medications Ordered Filled Start Stop Current Ordering Indication Dosage Frequency Signature Comments Components Source Medication Medication Date Date Medication? Clinician (SIG) Name Name atorvastati 2018-09 Yes atorvastat Leija n (LIPITOR) 0-15 in 10 mg Meth megan 10 MG 09:44: tablet st tablet 26 clopidogrel 2018-09 Yes clopidogre Leija (PLAVIX) 75 0-15 l 75 mg Metho di mg tablet 09:44: tablet st 26 acetaminoph 2018-09 Yes TK 1 T PO [place] en-codeine 0-06 BID PRF Method i (TYLENOL 00:00: JOINT PAIN st WITH 00 CODEINE #3) 300-30 mg per tablet NIFEdipine 2018- No 60mg QD Take 1 [place] XL -15 07- tablet (60 Methodi (PROCARDIA 00:00: 23:59 mg total) s t XL) 60 MG 00 :00 by mouth 24 hr daily for tablet 30 days. ascorbic 2018- No 500mg QD Take 1 [place] acid, 06-15- tablet Methodi vitamin C, 00:00: 23:59 ([address] (VITAMIN C) 00 :00 total) by 500 MG mouth tablet daily for 30 days. polyethylen 2018- No 17g QD Take 17 g Leija e glycol - 10- by mouth Method i (MIRALAX) 00:00: 23:[address] 17 gram 00 :00 30 days. packet carvedilol 2018- No 6.25mg Q.5D Take 6.25 Leija (COREG) 9-20 09-20 mg by Methodi 6.25 MG 16:13: 00:[address] tablet 31 :00 (two) times a day with meals. doxycycline 2019- No 100mg Q.5D Take 100 Leija (VIBRAMYCIN 9-20 09-20 mg by Method i ) 100 MG 16:13: 00:[address] oral dosage 31 :00 (two) form times a day. INSULIN 2019-0 Yes 35U QD Inject 35 [place] GLARGINE,HU 9-20 Units Methodi M.REC.ANLOG 16:13: under the s t (LANTUS 29 skin SUBQ) daily. BUMETanide 2019-0 Yes 2mg QD Take 2 mg [place] (BUMEX) 2 9-20 by mouth Method i MG tablet 16:13: daily. st 29 aspirin 2019-0 Yes 81mg QD Take 81 mg [place] (ECOTRIN) 9-20 by mouth Method i 81 MG 16:13: daily. st enteric 29 coated tablet zolpidem 0 Yes 10mg QD Take 10 mg Sascha ston (AMBIEN) 5 9-20 by mouth Metho di MG tablet 16:13: nightly as st 29 needed for sleep. pregabalin 2018-0 Yes 25mg Q.5D Take 25 mg [place] (LYRICA) 25 9-20 by mouth 2 Me thodi MG capsule 16:13: (two) st 29 times a day. losartan 20190 Yes 100mg QD Take 100 [place] (COZAAR) 9-20 mg by Methodi 100 MG 16:13: mouth st tablet 29 daily. nitroglycer [address] 0.4 [place] in 9-20 mg under Methodi (NITROSTAT) 16:13: the tongue st 0.4 MG SL 29 every 5 tablet (five) minutes as needed for chest pain. albuterol 0 Yes ProAir HFA [place] (PROAIR 9-20 90 Methodi HFA) 90 16:13: mcg/actuat st mcg/actuati 29 ion on inhaler aerosol inhaler gabapentin 2019-0 Yes 300mg QD Take 300 [place] (NEURONTIN) 9-20 mg by Methodi 300 mg 16:13: mouth st capsule 29 nightly. carvedilol 2018-0 2019- No 12.5mg Q.5D Take 1 [place] (COREG) 9-20 10-20 tablet Methodi 12.5 MG 00:00: 23:59 (12.[address] tablet 00 :00 total) by mouth 2 (two) times a day with meals for 30 days. docusate 2019- No 100mg Q.5D Take 1 [place] sodium 06-14 capsule Methodi (COLACE) 00:00: 23:59 ([address] 100 MG 00 :00 total) by capsule mouth 2 (two) times a day for 30 days. sevelamer 2019- No 2400mg [id number] Take 3 [place] (RENVELA) 06-14 [id number] tablets Methodi 800 mg 00:00: 23:59 3D (2,[address] tablet 00 :00 total) by mouth 3 (three) times a day with meals for 30 days. zinc 2018- No 220mg Q.5D Take 1 Leija sulfate 06-14 capsule Methodi (ZINCATE) 00:00: 23:59 ([address] 220 (50) mg 00 :00 total) by capsule mouth 2 (two) times a day for 30 days. HYDROcodone 2019- No acute pain 1{tbl} Q6H Take 1 [place] -acetaminop 06-14 09-25 tablet by Me dena self (NORCO) 00:00: 23:[address] 5-325 mg 00 :00 every 6 per tablet (six) hours as needed for moderate pain for up to 5 days .Acute Pain. Max Daily Amount: 4 tablets Acetaminoph Yes 1 tab, PO, Memoria en 300 MG / 6-13 Q8H, PRN l Codeine 21:50: Pain Score Herm barbara Phosphate 00 6-10, X 7 30 MG Oral day, # 28 Tablet tab, 0 [Tylenol Refill(s) with Codeine #3] zolpidem 10 Yes 10 mg = 1 M emoria mg oral 6-13 tab, PO, l tablet 21:30: Bedtime, PRN as needed for insomnia, X 30 day, # 30 tab, 0 Refill(s) predniSONE Yes 60 mg = 3 Me moria 20 mg oral 6-13 tab, PO, l tablet 21:30: Daily, Take 3 tablets for 60 mg dose, X 4 day, # 12 tab, 0 Refill(s), Pharmacy: [facility] pantoprazol Yes 40 mg = 1 M emoria e 40 mg 6-13 tab, PO, l oral 21:30: Before Ganesh enteric 00 Breakfast, coated # 30 tab, tablet 0 Refill(s), Pharmacy: [facility] Colchicine Yes 0.6 mg = 1 M emoria 0.6 MG Oral 6-13 tab, PO, l Tablet 21:30: BID, # 60 Braulio n 00 tab, 0 Refill(s), Pharmacy: [facility] Levofloxaci Yes 500 mg = 1 Memoria n 500 MG 6-13 tab, PO, l Oral Tablet 21:30: Q24H, X 10 [place] [Levaquin] 00 day, # 10 tab, 0 Refill(s), Pharmacy: [facility] Protonix No Notes: Memoria 6-13 Tablet l 12:30: should not [place] 00 be chewed or crushed. (Same as: Protonix) Solu-Medrol No Notes: Fernie edi 6-13 (Same l 02:00: as:Solu-ME Ganesh 00 DROL, A-Methapre d) Colchicine No 0.6 mg, 1 Me moria 6-12 tab, l 19:53: Route: PO, [place] 00 Drug form: TAB, BID, Dosing Weight 92.227, kg, Priority: NOW, Start date: 03/06/19 14:53:00 CDT, Duration: 30 day, Stop date: 04/05/19 9:00:00 CDT tamsulosin No Notes: Memor ia 6-12 (Same As: l 02:00: Flomax) "Do Not Crush" atorvastati No Notes: Fernie edi n 6-12 (Same As: l 02:00: Lipitor) Epogen No Notes: Memoria 6-11 (Same as: l 22:00: Procrit) epoetin olamide 90440 unit/1 ml VL. For dialysis use only. (Procrit) WASTE: F/P - Red; E -Red MEDICATION WASTE Product Size: 55406 unit Product Wasted: ___ unit vancomycin No Notes: Memor ia + Sodium 6-11 TIME l Chloride 22:00: CRITICAL Meghna nn 0.9% IV 100 00 MEDICATION mL (Same As: Vancocin) For adult patients only: Round to nearest 250 mg per Medical Staff approval Lactulose No Notes: Memori a 667 MG/ML 6-11 (Same l Oral 22:00: as:Chronul [place] Solution 00 ac) Fluticasone No Notes: Fernie edi propionate 6-11 (Same as: l 0.05 22:00: Flonase) Ganesh MG/ACTUAT 00 Metered Dose Nasal Michael [Flonase] Fluticasone Yes 1 spray, Me moria propionate 6-11 NASAL, l 0.05 19:55: BID, # 16 Ganesh MG/ACTUAT 00 gm, 0 Metered Refill(s) Dose Nasal Michael [Flonase] prasugrel No 60kg, Memori a 6-11 without l 14:00: history of [place] 00 TIA/Ischem ic stroke and without likely bypass surgery Veltassa No 8.4 gm, Memori a 6-11 Route: PO, l 14:00: Drug form: Ganesh 00 PDR/REC, Daily, Dosing Weight 92.227, kg, Start date: 03/05/19 9:00:00 CDT, Duration: 30 day, Stop date: 04/03/19 9:00:00 CDT gabapentin No Notes: Memor ia 300 MG Oral 6-11 (Same as: l Capsule 14:00: Neurontin) Herm barbara 00 Insulin No Notes: Memoria Glargine 6-11 (Same as: l 100 UNT/ML 14:00: Lantus) Do H [place] Injectable 00 not hold Solution insulin [Lantus] without contacting prescriber WASTE: F/P - Black; E - Municipal Trash Bin "single patient use only" Stable for 28 days at room temperatur e Expires in days from ____Date carvedilol No Notes: Memor ia 6-11 Give with l 14:00: food. Ganesh 00 (Same As: Coreg) Aspirin 81 No Notes: Do Me moria MG Enteric 03-05 not crush l Coated 14:00: or chew. Ganesh Tablet 00 (Same As: Ecotrin) Nephro-Dana No Notes: Fernie edi Rx - (Same as: l 14:00: Nephro-Vit [place] e Rx and Diatx) Give with food. Bumetanide No Notes: Memor ia 6-11 (Same As: l 13:00: Bumex) NIFEdipine No Notes: Memor ia 30 mg oral 03-05 (Same as: l tablet, 12:30: Adalat CC, Herm barbara extended Procardia release XL) Give on empty stomach. Take 1 hour before or 2 hours after meal; "Avoid grapefruit and grapefruit juice". Do not crush Benadryl No 25 mg, 1 Memor ia 03-05 tab, l 09:26: Route: PO, Drug form: TAB, TID, Dosing Weight 92.227, kg, PRN Itching, Start date: 03/05/19 4:26:00 CDT, Duration: 30 day, Stop date: 04/04/19 4:25:00 CDT heparin No Notes: Memoria 6-11 porcine l 05:00: heparin zolpidem No Notes: Memoria - (Same As: l 04:03: Ambien) tramadol No Notes: Not Mem oria hydrochlori 03-05 to exceed l de 50 MG 03:42: 400mg/day. Her mcintyre Oral Tablet 00 (Same As: Ultram) tizanidine No Notes: Memor ia 6-11 (Same As: l 03:42: Zanaflex) Nitroglycer No Notes: Fernei edi in 0.4 MG 03-05 (Same l Sublingual 03:42: as:Nitroqu H ermann Tablet 00 ick, Nitrostat) "Do Not Crush" Sublingual tablet Eszopiclone No 3 mg, Memor ia 6-11 Route: PO, l 03:42: Drug form: [place] 00 TAB, Bedtime, Dosing Weight 92.227, kg, PRN Insomnia, Start date: 03/04/19 22:42:00 CDT, Duration: 30 day, Stop date: 04/03/19 22:41:00 CDT Albuterol No Notes: Memori a 0.833 MG/ML 6-11 (Same as: l / 03:42: Duoneb) [place] Ipratropium 00 [place] 0.167 MG/ML Inhalant Solution Acetaminoph No Notes: Fernie edi en 325 MG / 6-11 (Same as: l Hydrocodone 03:13: [place] Meghna nn Bitartrate 00 325/5) Do 5 MG Oral not exceed Tablet 4gm/day of [[place] acetaminop 5/325] hen. Zofran No Notes: Memoria 6-11 (Same as: l 03:13: Zofran) Ganesh 00 MEDICATION WASTE Product Size: 4 mg Product Wasted: ___ mg Vancomycin No 1 ea, Memori a 6-11 Route: l 03:00: MISC, [place] 00 ONCALL, Dosing Weight 92.227, kg, Start date: 03/04/19 22:00:00 CDT, Duration: 10 day, Stop date: 03/14/19 21:59:00 CDT, Pharmacy to dose, ABX Indication : Skin/Soft Tissue Infection cefepime No Notes: Memoria 6-11 (Same As: l 03:00: Maxipime) Ganesh MEDICATION WASTE Product Size: 1000 mg Product Wasted: ___ mg Calcium No 125 mL, 75 Fernie edi Chloride 6-11 ml/hr, l 0.0014 02:22: Infuse Ganesh MEQ/ML / 00 Over: 1.7 Potassium hr, Route: Chloride IV, 125, 0.004 Drug form: MEQ/ML / SOLN, Sodium ONCE, Chloride Dosing 0.103 Weight MEQ/ML / 92.227 kg, Sodium Start Lactate date: 0.028 03/04/19 MEQ/ML 21:22:00 Injectable CDT, Stop Solution date: 03/04/19 21:22:00 CDT Insulin 2019-0 No Notes: Memoria Lispro 6-11 (Same as: l 02:21: Humalog) Roll in palms of hands gently; Do not shake vigorously . WASTE: F/P - Black; E - Municipal Trash Bin Stable for 28 days at room temperatur e. Expires in days from ____Date Glucagon 0 No 1 mg, Memoria 6-11 Route: IM, l 02:21: Drug form: [place] 00 PDR/INJ, PRN, Dosing Weight 92.227, kg, PRN Blood Glucose Results, Start date: 03/04/19 21:21:00 CDT, Duration: 30 day, Stop date: 04/03/19 21:20:00 CDT Dextrose No 25 gm, 50 Fernie edi 50% Syringe 6-11 mL, Route: l 02:21: IVP, Drug Form: INJ, Dosing Weight 92.227, kg, PRN, PRN Blood Glucose Results, Start date: 03/04/19 21:21:00 CDT, Duration: 30 day, Stop date: 04/03/19 21:20:00 CDT Acetaminoph No Notes: Do M emoria en 6-11 not exceed l 02:21: 4 gm/day. (Same as: Tylenol) tizanidine Yes 2 mg = 1 Mem oria 2 mg oral 6-11 cap, PO, l capsule 01:12: Q8H, PRN Braulio n 00 for muscle spasms, # 90 cap, 0 Refill(s) zolpidem 10 No 10 mg = 1 M emoria mg oral 6-11 tab, PO, l tablet 01:12: Bedtime, PRN as needed for insomnia, 0 Refill(s) eszopiclone No 3 mg = 1 Me moria 3 mg oral 6-11 tab, PO, l tablet 01:12: Bedtime, PRN for insomnia, 0 Refill(s) Albuterol Yes 3 mL, Memoria 0.833 MG/ML 6-11 INHALATION l / 01:12: , Q4H, PRN [place] Ipratropium 00 Wheezing, [place] # 30 ea, 1 0.167 MG/ML Refill(s) Inhalant Solution NIFEdipine Yes 30 mg = 1 Me moria 30 mg oral 6-11 tab, PO, l tablet, 01:12: Before [place] extended 00 Breakfast, release # 30 tab, 0 Refill(s) Acetaminoph No 1 tab, PO, Memoria en 300 MG / 6-11 Q8H, PRN l Codeine 01:12: Pain Score Herm barbara Phosphate 00 6-10, 0 30 MG Oral Refill(s) Tablet [Tylenol with Codeine #3] patiromer Yes 8.4 gm, Memor ia 8400 MG 6-11 PO, Daily, l Powder for 01:12: 0 [place] Oral 00 Refill(s) Suspension [Veltassa] atorvastati Yes 10 mg = 1 M emoria n 10 mg 6-11 tab, PO, l oral tablet 01:12: Bedtime, # [place] 00 90 tab, 0 Refill(s) Lactulose Yes 20 gm = 30 Me moria 667 MG/ML 6-11 mL, PO, l Oral 01:12: After Ganesh Solution 00 Dinner, 0 Refill(s) sucroferric Yes 500 mg = 1 Memoria oxyhydroxid 6-11 tab, CHEW, l e 500 MG 01:12: TID-Meals, Her mcintyre Chewable 00 0 Tablet Refill(s) [Velphoro] Nitroglycer Yes 0.4 mg = 1 Memoria in 0.4 MG 6-11 tab, SL, l Sublingual 01:12: Q5Min, PRN H ermann Tablet 00 Chest pain, Give up to 3 doses. Call 911 if pain persists., # 100 tab, 0 Refill(s) tramadol Yes 50 mg = 1 Fernie edi hydrochlori 6-11 tab, PO, l de 50 MG 01:12: Q8H, PRN Meghna nn Oral Tablet 00 Pain Score 6-10, 0 Refill(s) Flumazenil No Notes: Memor ia 5-30 (Same as: l 19:37: Romazicon) Ganesh 00 Fentanyl No Notes: Memoria 5-30 (Same as: l 19:37: Sublimaze) Preservat katy free. Hydromorpho No Notes: Fernie edi ne 5-30 Same as: l 19:37: Dilaudid Naloxone No Notes: Memoria 5-30 Same as l 19:37: Narcan Oxycodone No Notes: Memori a 5-30 (Same as: l 19:37: Roxicodone ) Acetaminoph No Notes: Max Memoria en 5-30 acetaminop l 19:37: hen 4000 mg/day (4 gm/day). (Same as: Tylenol Extra Strength) Labetalol No 10 mg, 2 Fernie edi 5-30 mL, Route: l 19:37: IVP, Drug form: INJ, Q5Min, Dosing Weight 90.682, kg, PRN Elevated BP, Start date: 02/21/19 14:37:00 CDT, Duration: 5 doses or times, Stop date: 02/22/19 0:00:00 CDT Hydralazine No Notes: Fernie edi 5-30 (Same as: l 19:37: Apresoline ) Push over 5 minutes Diphenhydra No Notes: Fernie edi mine 5-30 (Same as: l 19:37: Benadryl) Ondansetron No Notes: Fernie edi 5-30 (Same as: l 19:37: Zofran) MEDICATION WASTE Product Size: 4 mg Product Wasted: ___ mg Meperidine No Notes: Memor ia 5-30 (Same As: l 19:37: Demerol) Benadryl No 25 mg, Memoria 5-30 Route: l 19:28: IVP, ONCE, Dosing Weight 90.682, kg, PRN Itching, Start date: 02/21/19 14:28:00 CDT phenylephri No Route: IV, Memoria ne (ANES) 5-30 Drug form: l 18:58: INJ, ONCE, Stop date: 02/21/19 13:58:00 CDT Acetaminoph 2019-0 No Notes: Do M emoria en 325 MG / 5-30 not exceed l Hydrocodone 18:41: 4gm/day of Ganesh Bitartrate 00 acetaminop 10 MG Oral hen. Tablet (Same as: [place] 325/10) Morphine 2018-0 No 2 mg, 1 Memori a 5-30 mL, Route: l 18:41: IVP, Drug form: SOLN, Q3H, Dosing Weight 90.682, kg, PRN Pain Score 1-3, Start date: 02/21/19 13:41:00 CDT, Duration: 30 day, Stop date: 03/23/19 13:40:00 CDT ePHEDrine 2018-0 No Route: IV, Me moria (ANES) 5-30 Drug form: l 18:23: INJ, ONCE, Stop date: 02/21/19 13:23:00 CDT metoclopram 2019-0 No Route: IV, Memoria sara (ANES) 5-30 Drug form: l 18:07: INJ, ONCE, Stop date: 02/21/19 13:07:00 CDT lidocaine 2019-0 No Route: IV, Me moria (ANES) 5-30 Drug form: l 18:07: INJ, ONCE, Stop date: 02/21/19 13:07:00 CDT propofol 2019-0 No Route: IV, Mem oria (ANES) 5-30 Drug form: l 18:07: INJ, ONCE, Stop date: 02/21/19 13:07:00 CDT fentaNYL 2019-0 No Route: IV, Mem oria (ANES) 5-30 Drug form: l 18:07: INJ, ONCE, Stop date: 02/21/19 13:07:00 CDT midazolam 2019-0 No Route: IV, Me moria (ANES) 5-30 Drug form: l 18:07: SOLN, [place] 00 ONCE, Stop date: 02/21/19 13:07:00 CDT ondansetron 2019-0 No Route: IV, Memoria (ANES) 5-30 Drug form: l 17:42: INJ, ONCE, Stop date: 02/21/19 12:42:00 CDT ceFAZolin 2019-0 No Route: IV, moria (ANES) 5-30 Drug form: l 17:42: INJ, ONCE, Stop date: 02/21/19 12:42:00 CDT vancomycin 2018-0 No Route: IV, Delaney youngria (ANES) 1000 5-30 Drug form: l mg 17:10: INJ, Start date: 02/21/19 12:10:00 CDT, Stop date: 02/21/19 13:10:00 CDT Sodium 2019-0 No Route: IV, Memor ia Chloride 5-30 Total l 0.9% IV 16:52: Volume: [place] (ANES) 1000 00 1,000, mL Start date: 02/21/19 11:52:00 CDT, Stop date: 02/21/19 12:52:00 CDT Dextrose 2019-0 Yes 12.5 gm, Memor ia 50% Syringe 5-30 25 mL, l 16:30: Route: IVP, Drug Form: INJ, Dosing Weight 90.682, kg, ONCE, Start date: 02/21/19 11:30:00 CDT, Stop date: 02/21/19 11:30:00 CDT Sodium 2018-0 No 1,000 mL, Memori a Chloride 5-30 Rate: 25 l 0.9% IV 14:49: ml/hr, Ganesh 1000 mL 00 Infuse over: 40 hr, Route: IV, Dosing Weight 90.682 kg, Total Volume: 1,000, Start date: 02/21/19 9:49:00 CDT, Duration: 30 day, Stop date: 03/23/19 9:48:00 CDT, 2.11, m2 Ancef + 2018-0 No Notes: Memoria sterile 5-07 (Same As: l water 20 mL 16:00: Ancef, Herm barbara 00 Kefzol) MEDICATION WASTE Product Size: 1000 mg Product Wasted: ___ mg Vancomycin 2019-0 No 2001 mg: Me moria 5-07 infuse l 16:00: over 2.5 Ganesh 00 hours For adult patients only: Round to nearest 250 mg per Medical Staff approval MEDICATION WASTE Product Size: 1000 mg Product Wasted: ___ mg Insulin 2019-0 Yes 36 unit, Memori a Glargine 5-07 SUB-Q, l 100 UNT/ML 15:11: Daily, 0 Her mcintyre Injectable 00 Refill(s) Solution [Lantus] gabapentin 2018- Yes 300 mg = 1 M emoria 300 MG Oral 4-24 cap, PO, l Capsule 23:13: Daily, # Braluio n 43 30 cap, 3 Refill(s), Pharmacy: [facility] [id number] gabapentin 2018- No See Memoria 300 MG Oral 4-17 Instructio l Capsule 14:12: ns, 1 cap Meghna nn 00 PO after dialysis, # 30 cap, 2 Refill(s), Pharmacy: [facility] [id number] Ondansetron 2018-0 No 4 mg, Memor ia 12-20 Route: l 14:13: IVP, ONCE, Ganesh 00 Dosing Weight 90.966, kg, PRN Nausea & Vomiting, Start date: 12/20/18 9:13:00 CDT Meperidine 2018-0 No 12.5 mg, Mem oria 12-20 Route: l 14:13: IVP, Ganesh 00 Q30Min, Dosing Weight 90.966, kg, PRN Other -See Comment, For shivering, Start date: 12/20/18 9:13:00 CDT, Duration: 2 doses or times, Stop date: Limited # of times Hydralazine 2018-0 No 10 mg, Fernie edi 12-20 Route: l 14:13: IVP, Ganesh 00 Q20Min, Dosing Weight 90.966, kg, PRN Elevated BP, Start date: 12/20/18 9:13:00 CDT, Duration: 2 doses or times, Stop date: Limited # of times Naloxone 2019-0 No 0.4 mg, Memori a 12-20 Route: l 14:13: IVP, [place] 00 Q2MIN, Dosing Weight 90.966, kg, PRN Narcotic Reversal, Start date: 12/20/18 9:13:00 CDT, Duration: 8 doses or times, Stop date: Limited # of times Diphenhydra 2018-0 No 12.5 mg, Me moria mine 12-20 Route: l 14:13: IVP, Drug [place] 00 form: INJ, Q6H, Dosing Weight 90.966, kg, PRN Itching, Start date: 12/20/18 9:13:00 CDT, Duration: 30 day, Stop date: 01/19/19 9:12:00 CDT Oxycodone 2019-0 No 5 mg, Memoria 12-20 Route: PO, l 14:13: Drug form: Ganesh 00 TAB, Q4H, Dosing Weight 90.966, kg, PRN Pain Score 4-6, Start date: 12/20/18 9:13:00 CDT, Duration: 30 day, Stop date: 01/19/19 9:12:00 CDT Labetalol 2019-0 No 10 mg, Memori a 12-20 Route: l 14:13: IVP, [place] 00 Q5Min, Dosing Weight 90.966, kg, PRN Elevated BP, Start date: 12/20/18 9:13:00 CDT, Duration: 5 doses or times, Stop date: Limited # of times Acetaminoph 2019-0 No 1,000 mg, M emoria en 12-20 Route: PO, l 14:13: Drug form: Ganesh 00 TAB, ONCE, Dosing Weight 90.966, kg, PRN Pain Score 1-3, Start date: 12/20/18 9:13:00 CDT Fentanyl 2019-0 No 50 Memoria 12-20 microgram, l 14:13: Route: Ganesh 00 IVP, Q5Min, Dosing Weight 90.966, kg, PRN Pain Score 7-10, Priority: Routine, Start date: 12/20/18 9:13:00 CDT, Duration: 2 doses or times, Stop date: Limited # of times Flumazenil 2019-0 No 0.2 mg, Fernie edi 12-20 Route: l 14:13: IVP, PRN, Dosing Weight 90.966, kg, PRN Benzodiaze pine Reversal, Initial dose, Start date: 12/20/18 9:13:00 CDT, Duration: 30 day, Stop date: 01/19/19 9:12:00 CDT Hydromorpho 2019-0 No 0.5 mg, Mem oria ne 12-20 Route: l 14:13: IVP, [place] 00 Q5Min, Dosing Weight 90.966, kg, PRN Pain Score 7-10, Start date: 12/20/18 9:13:00 CDT, Duration: 4 doses or times, Stop date: Limited # of times Acetaminoph No Notes: Do M emoria en 325 MG / 12-20 not exceed l Hydrocodone 14:09: 4gm/day of [place] Bitartrate 00 acetaminop 10 MG Oral hen. Tablet (Same as: [place] 325/10) Acetaminoph No Notes: Fernie edi en 325 MG / 12-20 (Same as: l Hydrocodone 14:09: [place] Meghna nn Bitartrate 00 325/5) Do 5 MG Oral not exceed Tablet 4gm/day of acetaminop hen. Sodium No 500 mL, Memoria Chloride 12-20 Rate: 25 l 0.9% IV 500 12:38: ml/hr, Herm barbara mL 00 Infuse over: 20 hr, Route: IV, Dosing Weight 90.966 kg, Total Volume: 500, Start date: 12/20/18 7:38:00 CDT, Duration: 1 day, Stop date: 12/21/18 7:37:00 CDT, 2.11, m2 prasugrel Yes 10 mg, PO, Me moria - Daily, 0 l 12:32: Refill(s) [place] 00 tamsulosin Yes 0.4 mg = 1 M emoria 0.4 mg oral 12-20 cap, PO, l capsule 12:31: Daily, # Braulio n 00 30 cap, 0 Refill(s) carvedilol Yes 6.25 mg, Mem oria -28 PO, BID, 0 l 12:31: Refill(s) [place] Vancomycin No 2001 mg: Me moria - infuse l 18:00: over 2.5 Ganesh 00 hours For adult patients only: Round to nearest 250 mg per Medical Staff approval MEDICATION WASTE Product Size: 1000 mg Product Wasted: ___ mg Ancef + No Notes: Memoria sterile 3-19 (Same As: l water 20 mL 18:00: Ancef, Herm barbara 00 Kefzol) MEDICATION WASTE Product Size: 1000 mg Product Wasted: ___ mg Vitamin B1 2019-0 Yes Daily, 0 Mem oria 3-19 Refill(s) l 17:51: [place] 00 bumetanide Yes 2 mg = 1 Mem oria 2 mg oral 3-19 tab, PO, l tablet 17:51: BID, 0 [place] 00 Refill(s) Acidophilus 2019-0 Yes Daily, 0 Me moria 3-19 Refill(s) l 17:51: Ganesh 00 Aspirin 81 2019- Yes 81 mg = 1 Me moria MG Enteric 3-19 tab, PO, l Coated 17:50: Daily, # Ganesh Tablet 00 90 tab, 3 Refill(s) Nitroglycer Yes 0.4 mg = 1 Memoria in 0.4 MG 3-19 tab, SL, l Sublingual 17:50: Q5Min, 0 Her mcintyre Tablet 00 Refill(s) zolpidem 10 Yes 10 mg = 1 M emoria mg 3-19 tab, SL, l sublingual 17:50: Bedtime, Her mcintyre tablet 00 PRN for sleep, 0 Refill(s) Auryxia Yes 420 mg, Memoria 3-19 PO, 0 l 17:50: Refill(s) Ganesh 00 NIFEdipine Yes 30 mg = 1 Me moria 30 mg oral 3-19 tab, PO, l tablet, 17:50: Daily, 0 Braulio n extended 00 Refill(s) release sevelamer Yes 800 mg = 1 Me moria carbonate 3-19 tab, PO, 0 l 800 MG Oral 17:49: Refill(s) H ermann Tablet 00 [Renvela] pregabalin Yes 50 mg = 1 Me moria 50 MG Oral 3-19 cap, PO, l Capsule 17:49: BID, 0 [place] [Lyrica] 00 Refill(s) Insulin Yes 35 units, Memor ia Glargine 3-19 SUB-Q, l 100 UNT/ML 17:49: Daily, 0 Her mcintyre Injectable 00 Refill(s) Solution [Lantus] prasugrel Yes 10mg QD Take 1 [place] (EFFIENT) 2-09 tablet (10 Meth megan 10 mg 00:00: mg total) st tablet 00 by mouth daily for 30 days. VIOS Yes See Admin [place] AEROSOL 10-01 Instructio Method i DELIVERY 00:00: ns. st SYSTEM 00 device L. 2017-09 Yes 2{capsu QD Take 2 Leija acidophilus 2-26 le} capsules Meth megan ,casei,rham 00:00: by mouth st nosus (BIO 00 daily. K PLUS) 50 billion cell capsule,del ayed release(DR/ EC) capsule tamsulosin 2017-09 Yes .4mg QD Take 1 [place] (FLOMAX) 2-26 capsule Methodi 0.4 mg 00:00: (0.[address] capsule 00 total) by mouth daily. thiamine 50 2017-09- No 50mg QD Take 1 Sascha ston MG tablet 11-20 12-26 tablet (50 Met hodi 00:00: 23:59 mg total) st 00 :00 by mouth daily. NIFEdipine 2017-09- No 30mg QD Take 1 [place] XL 2-26 09-20 tablet (30 Methodi (PROCARDIA 00:00: 00:00 mg total) s t XL) 30 MG 00 :00 by mouth 24 hr daily. tablet fluticasone 2017-09 Yes 100ug QD 2 sprays [place] (FLONASE) 2-11 (100 mcg Method i 50 00:00: total) by st mcg/actuati 00 Each Nare on nasal route spray daily. lactulose Yes lactulose Sascha ston (CHRONULAC) 3-20 10 gram/15 Me thodi 10 gram/15 00:00: mL oral st mL solution 00 solution Immunizations Ordered Immunization Filled Immunization Date Status Commen ts Source Name Name FLUCELVAX QUAD PF 2018-08-09 Completed [place] 00:00:00 [facility] Vital Signs Vital Name Observation Time Observation Value Comments Source Systolic blood 2019-07-09 09:37:00 156 mm[Hg] [place] [facility] pressure Diastolic blood 2019-07-09 09:37:00 67 mm[Hg] [place] [facility] pressure Heart rate 2019-07-09 09:37:00 68 /min [place] [facility] Body height 2019-07-09 09:37:00 172.7 cm Le[place] [facility] Body weight 2019-07-09 09:37:00 91.627 kg Le[place] [facility] BMI 2019-07-09 09:37:00 30.71 kg/m2 [place] [facility] Body temperature 2019-06-14 12:49:57 36.22 Suni [place] [facility] Respiratory rate 2019-06-14 12:49:57 16 /min [place] [facility] Oxygen saturation in 2019-06-14 12:49:57 93 /min Le[place] [facility] Arterial blood by Pulse oximetry Respitory Rate 2019-03-07 21:13:00 Memori al [place] Systolic (mm Hg) 2019-03-07 21:13:00 Fernie rial Ganesh Diastolic (mm Hg) 2019-03-07 21:13:00 Mem orial Ganesh Temperature Oral (F) 2019-03-07 21:13:00 98.2 F [facility] [place] Heart Rate 2019-03-07 21:13:00 [facility] [place] Respitory Rate 2019-03-07 19:58:00 Memori al [place] Respitory Rate 2019-03-07 17:06:00 Memori al Ganesh Systolic (mm Hg) 2019-03-07 17:06:00 Fernie rial [place] Diastolic (mm Hg) 2019-03-07 17:06:00 Mem orial Ganesh Heart Rate 2019-03-07 17:06:00 [facility] Ganesh Temperature Oral (F) 2019-03-07 17:06:00 97.6 F [facility] Ganesh Systolic (mm Hg) 2019-03-07 12:10:00 Fernie rial [place] Diastolic (mm Hg) 2019-03-07 12:10:00 Mem orial Ganesh Heart Rate 2019-03-07 12:10:00 [facility] [place] Temperature Oral (F) 2019-03-07 12:10:00 98.3 F [facility] Height 2019-03-04 22:27:00 172.72 cm [facility] [place] Weight 2019-03-04 22:27:00 [facility] G[facility] BMI Calculated 2019-03-04 22:27:00 Memori al Ganesh Respitory Rate 2019-02-21 20:30:00 Memori al [place] Systolic (mm Hg) 2019-02-21 20:30:00 Fernie rial Ganesh Diastolic (mm Hg) 2019-02-21 20:30:00 Mem orial [place] Systolic (mm Hg) 2019-02-21 19:45:00 Fernie rial [place] Diastolic (mm Hg) 2019-02-21 19:45:00 Mem orial [place] Respitory Rate 2019-02-21 19:45:00 Memori al [place] Systolic (mm Hg) 2019-02-21 19:40:00 Fernie rial [place] Diastolic (mm Hg) 2019-02-21 19:40:00 Mem orial [place] Respitory Rate 2019-02-21 19:40:00 Memori al Ganesh Heart Rate 2019-01-29 15:39:00 [facility] G[facility] Temperature Oral (F) 2019-01-29 15:39:00 97.5 F [facility] BMI Calculated 2019-01-29 15:09:00 Memori al Ganesh Weight 2019-01-29 15:09:00 [facility] G[facility] Height 2019-01-29 15:09:00 172.72 cm [facility] [place] Systolic (mm Hg) 2018-12-20 15:00:00 Fernie rial [place] Diastolic (mm Hg) 2018-12-20 15:00:00 Mem orial Ganesh Respitory Rate 2018-12-20 15:00:00 Memori al Ganesh Respitory Rate 2018-12-20 14:45:00 Memori al Ganesh Systolic (mm Hg) 2018-12-20 14:45:00 Fernie rial Ganesh Diastolic (mm Hg) 2018-12-20 14:45:00 Mem orial [place] Respitory Rate 2018-12-20 14:30:00 Memori al Ganesh Systolic (mm Hg) 2018-12-20 14:30:00 Fernie rial Ganesh Diastolic (mm Hg) 2018-12-20 14:30:00 Mem orial Ganesh Temperature Oral (F) 2018-12-20 12:30:00 97.3 F [facility] [place] Height 2018-12-11 17:09:00 172.72 cm [facility] G[facility] BMI Calculated 2018-12-11 17:09:00 Memori al [place] Weight 2018-12-11 17:09:00 [facility] Ganesh Temperature Oral (F) 2018-12-11 17:09:00 97.8 F [facility] [place] Heart Rate 2018-12-11 17:09:00 [facility] Procedures Procedure Date / Time Performing Clinician Source Performed TTE ALONDRA JOSEPH, 2019-11-05 11:36:53 Beatriz Xie W DOPPLER ([id number]) [id number] 2019-07-31 00:00:00 ENCPL 4L1U26P 2019-07-31 00:00:00 ENCPL 6W5Y30L 2019-07-31 00:00:00 ENCPL 3D4M79M 2019-07-31 00:00:00 ENCPL 3V6J45B 2019-07-31 00:00:00 ENCPL 8D3H34Y 2019-07-31 00:00:00 ENCPL 7K7L68I 2019-07-31 00:00:00 ENCPL 9C7J75Z 2019-07-31 00:00:00 ENCPL 6J3I05Y 2019-07-31 00:00:00 ENCPL 2N4X80O 2019-07-31 00:00:00 ENCPL 4T6Y77E 2019-07-31 00:00:00 ENCPL 0A0P43E 2019-07-31 00:00:00 ENCPL 7N8I82P 2019-07-31 00:00:00 ENCPL 8O4J23Z 2019-07-31 00:00:00 ENCPL 2S9J66X 2019-07-31 00:00:00 ENCPL 5J8M25C 2019-07-31 00:00:00 ENCPL 3J1W61U 2019-07-31 00:00:00 ENCPL 1V5I14E 2019-07-31 00:00:00 ENCPL 1I5S46N 2019-07-31 00:00:00 ENCPL 8M8C29H 2019-07-31 00:00:00 ENCPL 8I0W68Z 2019-07-31 00:00:00 ENCPL 9T7K35W 2019-07-31 00:00:00 ENCPL 1V1O41U 2019-07-31 00:00:00 ENCPL XR FOOT 3+ VW RIGHT 2019-07-09 10:28:24 Miguelito Dixon XR ANKLE 3+ VW RIGHT 2019-07-09 10:28:09 Miguelito Dixon n Fabiana Zendejas POC GLUCOSE 2019-06-14 12:52:00 Garcia Varner Meth odist HEMODIALYSIS 2019-06-14 10:47:59 Guille Purcell Meth odist HEMODIALYSIS 2019-06-14 06:52:10 Guille Purcell Meth odist POC GLUCOSE 2019-06-14 06:24:00 Garcia Varner Meth odist BASIC METABOLIC PANEL 2019-06-14 06:00:00 Rebecca Liu VANCOMYCIN LEVEL, RANDOM 2019-06-14 06:00:00 Rebecca Liu HC COMPLETE BLD COUNT 2019-06-14 06:00:00 Dunia Sosa W/AUTO DIFF Yonny ESTIMATED GFR 2019-06-14 06:00:00 Rebecca Liu Meth odist POC GLUCOSE 2019-06-13 20:59:00 Garcia Varner Meth odist POC GLUCOSE 2019-06-13 17:18:00 Garcia Varner Meth odist POC GLUCOSE 2019-06-13 12:05:00 Garcia Varner Meth odist OR FL < 1 HOUR 2019-06-13 11:41:02 Rebecca Liu Meth odist POC GLUCOSE 2019-06-13 10:10:00 Garcia Varner Meth odist POC GLUCOSE 2019-06-13 09:57:00 Garcia Varner Meth odist POC GLUCOSE 2019-06-13 09:25:00 Garcia Varner Meth odist POC GLUCOSE 2019-06-13 09:24:00 Garcia Varner Meth odist NV AN ELECTIVE 2019-06-13 07:57:13 Alyson Flores Meth odist SUPRAGLOTTIC AIRWAY POC GLUCOSE 2019-06-13 06:07:00 Garcia Varner Meth odist BASIC METABOLIC PANEL 2019-06-13 05:10:00 Rebecca Liu CBC HEMOGRAM 2019-06-13 05:10:00 Aidan Perry PROTHROMBIN TIME WITH INR 2019-06-13 05:10:00 Aidan Perry am ESTIMATED GFR 2019-06-13 05:10:00 Guille Purcell Meth odist POC GLUCOSE 2019-06-12 20:54:00 Garcia Varner Meth odist POC GLUCOSE 2019-06-12 17:29:00 Garcia Varner Meth odist POC GLUCOSE 2019-06-12 10:51:00 Garcia Varner Meth odist POC GLUCOSE 2019-06-12 05:59:00 Garcia Varner Meth odist VANCOMYCIN LEVEL, RANDOM 2019-06-12 04:30:00 Iam Katz Orthodoxgerry Thompson BASIC METABOLIC PANEL 2019-06-12 04:30:00 Rebecca Liu Orthodox CBC HEMOGRAM 2019-06-12 04:30:00 Rebecca Liu Meth odist ESTIMATED GFR 2019-06-12 04:30:00 Guille Purcell Meth odist HEMODIALYSIS 2019-06-11 22:06:01 Guille Purcell Meth odist POC GLUCOSE 2019-06-11 21:21:00 Garcia Varner Meth odist XR CHEST 1 VW PORTABLE 2019-06-11 19:36:50 Guille Purcell on Orthodox POC GLUCOSE 2019-06-11 16:35:00 Garcia Varner Meth odist POC GLUCOSE 2019-06-11 10:49:00 Garcia Varner Meth odist HC COMPLETE BLD COUNT 2019-06-11 06:10:00 Robel Quan W/AUTO DIFF POC GLUCOSE 2019-06-11 05:59:00 Garcia Varner Meth odist POC GLUCOSE 2019-06-10 21:06:00 Garcia Varner odist AEROBIC CULTURE 2019-06-10 16:45:00 Robel Quan GRAM STAIN 2019-06-10 16:45:00 Robel Quan Orthodox POC GLUCOSE 2019-06-10 13:04:00 Garcia Varner Meth odist POC GLUCOSE 2019-06-10 12:29:00 Garcia Varner Meth odist POTASSIUM LEVEL 2019-06-10 11:31:00 Mario Vivar [facility] POC GLUCOSE 2019-06-10 07:44:00 Garcia Varner Meth odist POC GLUCOSE 2019-06-10 06:28:00 Garcia Varner Meth odist VANCOMYCIN LEVEL, RANDOM 2019-06-10 04:30:00 Naomi KatzJennyBarbara Caicedo brittany Orthodox Donna SEDIMENTATION RATE 2019-06-10 04:30:00 Renée Valdez ethodist Bob HC COMPLETE BLD COUNT 2019-06-10 04:30:00 Aidan Perry W/AUTO DIFF BASIC METABOLIC PANEL 2019-06-10 04:30:00 Aidan Perry TYPE AND SCREEN 2019-06-10 04:30:00 Aidan Perry ESTIMATED GFR 2019-06-10 04:30:00 Aidan Perry PROTHROMBIN TIME WITH INR 2019-06-10 04:30:00 Aidan Perry am POC GLUCOSE 2019-06-09 21:17:00 Garcia Varner Meth odist MRI FOOT WO CONTRAST RIGHT 2019-06-09 20:50:22 Renée Valdez Orthodox Bob MRI ANKLE WO CONTRAST 2019-06-09 20:50:09 Renée Valdez [facility] RIGHT Bob POC GLUCOSE 2019-06-09 18:00:00 Garcia Varner Meth odist POC GLUCOSE 2019-06-09 17:13:00 Garcia Varner Meth odist POC GLUCOSE 2019-06-09 11:21:00 Garcia Varner Meth odist HEMODIALYSIS 2019-06-09 09:44:08 Guille Purcell Meth odist POC GLUCOSE 2019-06-09 06:25:00 Garcia Varner Meth odist HC COMPLETE BLD COUNT 2019-06-09 05:25:00 uYli Barbosa [facility] W/AUTO DIFF BASIC METABOLIC PANEL 2019-06-09 05:25:00 Yuli Barbosa Orthodox ESTIMATED GFR 2019-06-09 05:25:00 Yuli Barbosa Mn thodist POC GLUCOSE 2019-06-08 20:23:00 Garcia Varner Meth odist POC GLUCOSE 2019-06-08 17:02:00 Garcia Varner Meth odist POC GLUCOSE 2019-06-08 11:09:00 Garcia Varner Meth odist US DUPLEX ARTERIAL LOWER 2019-06-08 10:20:00 OumouSandracorrie Caicedo ston Orthodox EXTREMITY RIGHT Jeison R CT LOWER EXTREMITY WO 2019-06-08 09:52:48 Nela Coello n Orthodox CONTRAST RIGHT Jeison R POC GLUCOSE 2019-06-08 05:52:00 Garcia Varner Meth odist HC COMPLETE BLD COUNT 2019-06-08 04:43:00 Iam Katz Orthodox W/AUTO DIFF Donna COMPREHENSIVE METABOLIC 2019-06-08 04:43:00 Iam Katz Orthodox PANEL Donna MAGNESIUM LEVEL 2019-06-08 04:43:00 Iam Katz Meth odist Donna PHOSPHORUS LEVEL 2019-06-08 04:43:00 Iam Katz Met hodist Donna IONIZED CALCIUM 2019-06-08 04:43:00 Iam Katz Meth odist Donna ESTIMATED GFR 2019-06-08 04:43:00 Iam Katz Meth odist Donna POC GLUCOSE 2019-06-07 21:16:00 Garcia Varner Meth odist HEPATITIS B SURFACE 2019-06-07 19:40:00 Guille Purcell [facility] ANTIGEN HEPATITIS B SURFACE AB, 2019-06-07 19:40:00 Guille Purcell [facility] QUANTITATIVE HEPATITIS B CORE ANTIBODY 2019-06-07 19:40:00 Guille Purcellton Orthodox TOTAL HEMODIALYSIS 2019-06-07 18:19:50 Guille Purcell Meth odist POC GLUCOSE 2019-06-07 17:06:00 Garcia Varner Meth odist IR TUNNELED DIALYSIS 2019-06-07 14:38:02 Guille Purcell [facility] CATHETER REMOVAL US DUPLEX VENOUS UPPER 2019-06-07 11:19:48 Guille Purcell on Orthodox EXTREMITY RIGHT POC GLUCOSE 2019-06-07 11:10:00 José Hickman ethodist US DUPLEX VENOUS UPPER 2019-06-07 05:30:00 Guille Purcell on Orthodox EXTREMITY RIGHT POC GLUCOSE 2019-06-07 05:24:00 José Hickman ethodist HC COMPLETE BLD COUNT 2019-06-07 04:58:00 Iam Katz [facility] W/AUTO DIFF Donna COMPREHENSIVE METABOLIC 2019-06-07 04:58:00 Iam Katz [facility] PANEL Donna MAGNESIUM LEVEL 2019-06-07 04:58:00 Iam Katz Meth odist Donna PHOSPHORUS LEVEL 2019-06-07 04:58:00 Iam Katz Met hodist Donna IONIZED CALCIUM 2019-06-07 04:58:00 Iam Katz Meth odgerry Thompson HEMOGLOBIN A1C 2019-06-07 04:58:00 Iam Katz Meth julia Thompson ESTIMATED GFR 2019-06-07 04:58:00 Iam Katz Meth julia Thompson PROTHROMBIN TIME WITH INR 2019-06-07 04:58:00 José Hickman POC GLUCOSE 2019-06-06 20:11:00 José Hickman ethodist POC GLUCOSE 2019-06-06 17:14:00 José Hickman ethodist XR CHEST 1 VW PORTABLE 2019-06-06 12:41:19 Abdias Palma Rolf POC GLUCOSE 2019-06-06 12:08:00 José Hickman ethodist CONSULT TO OSTOMY CARE 2019-06-06 06:59:49 Iam Katz on Orthodox NURSE Donna XR FOOT 2 VW RIGHT 2019-06-06 05:31:01 Iam Katz ethodist Donna HC COMPLETE BLD COUNT 2019-06-06 05:29:00 Iam Katz W/AUTO DIFF Donna COMPREHENSIVE METABOLIC 2019-06-06 05:29:00 Iam Katz Orthodox PANEL Donna MAGNESIUM LEVEL 2019-06-06 05:29:00 Iam Katz Meth odist Donna PHOSPHORUS LEVEL 2019-06-06 05:29:00 Iam Katz Met pedro Thompson IONIZED CALCIUM 2019-06-06 05:29:00 Iam Katz ESTIMATED GFR 2019-06-06 05:29:00 Iam Katz BLOOD CULTURE, AEROBIC & 2019 22:00:00 Ludwig Escobar ANAEROBIC LACTIC ACID LEVEL 2019 22:00:00 Ludwig Escobar ECG ED PRELIMINARY 2019 21:38:59 Ludwig Escobar INTERPRETATION ECG 12-LEAD 2019 21:10:14 Ludwig Escobar ethodist BLOOD CULTURE, AEROBIC & 2019 20:55:00 Ludwig Escobar ANAEROBIC HC COMPLETE BLD COUNT 2019 20:55:00 Ludwig Escobar W/AUTO DIFF COMPREHENSIVE METABOLIC 2019 20:55:00 Ludwig Escobar PANEL ESTIMATED GFR 2019 20:55:00 Ludwig Escobar ethodist Stent placement 2018-07-26 05:00:00 [facility] Amputation of toe 2005-11-23 06:00:00 [facility] AVF - Pulmonary [facility] arteriovenous fistula operation Plan of Care Planned Activity Planned Date Details Comments Source Future Scheduled 2020-04-25 INFLUENZA VACCINE Anato n [facility] Test 00:00:00 [code = INFLUENZA VACCINE] Future Scheduled 2009 COLONOSCOPY SCREENING Jhonny kemp Orthodox Test 00:00:00 [code = COLONOSCOPY SCREENING] Future Scheduled 2009 SHINGLES VACCINES Anato n [facility] Test 00:00:00 (#1) [code = SHINGLES VACCINES (#1)] Encounters Start End Encounter Admission Attending Care Care Encounter Source Date/Time Date/Time Type Type Clinicians Facility Department ID 2019-04-30 Outpatient MHSE MHSE [id number] MH 14:00:27 [facility] 2019-03-04 Inpatient U MHSE MED [id number] MH 17:21:00 [facility] 2019-11-05 2019-11-05 Outpatient ZOE [facility] [id number] 5[address] [place] 00:00:00 00:00:00 AHMED [address] 2019 2019-06-14 Inpatient TELLY, [facility] [id number] [place] 00:00:00 00:00:00 GARCIA [address] 2019-03-04 2019-03-07 Outpatient Rolan Rice MHSE MHSE [id number] 17:21:00 18:43:00 Robert 61 2019-02-21 2019-02-21 Outpatient Joseph MHSE MHSE [id number] 11:31:00 15:41:00 Stephan Jermaine Brown 2019-02-21 2019-02-21 Outpatient MHSE MHSE [id number] MH 11:31:00 11:31:00 [facility] 2019-01-31 2019-01-31 Outpatient Camille MISCHER MHMISCHER [id number] 10:15:00 10:15:00 Juventino Edward 2019-01-15 2019-01-16 Outpatient MHMISCHER MHMISCHER [id number] 14:19:00 23:59:59 2018-12-20 2018-12-20 Outpatient Joseph MHSE MHSE [id number] 07:30:00 10:08:00 Stephan Brown Results Test Description Test Test Results Result Source Time Comments Comments Echocardiogram [facility], Radiology [place] complete w contrast 12 Results In - Met hodist and 3D if needed 17:34:00 11/06/2019 5:35 PM INJECTION MOLDING SUPERVISOR Echocardiography Report [address] [place] [address] Pat.Name: MARNIE LYLES Pat.ID: [id number] .Date: 11/05/2019 Refer.MD: BEATRIZ XIE Exam Time: 10:23:00 AM Study Type:Routine Echo Height: 69in Weight: 202lb BSA: 2.08 m2 Age: 9 1960,59Y Sex: MALE BP: 178/77 HR: 65 bpm Sonogrphr: Marielos Middleton RDCS, Kelley Franco, StudentPat. Stat.:Outpatient Study Status:Final Echo Event ID:[id number] Order ID: [id number] Reason for Study:Renal Transplant EvaluationHistory / Clinical:Diabetes, HypertensionProcedure s: 2D Echo, Colorflow Doppler, StrainRace: C SUMMAR Y: LV EF is normal. Estimated EF is 55-59%.RV systolic function is normal. -FINDINGS: ----LV: LV size is normal. LV EF is normal. Overall wall motion is normal. Estimated EF is 55-59%.RV: RV size is normal. RV systolic function is normal.LA: LA volume is mildly enlarged.RA: RA volume is normal. A Eustachian valve and/or Chiari network is seen. This is a normal variant.AO: Aortic root diameter is normal.VANI: No pericardial effusion.AV: No structural AV abnormalities noted.MV: Focal calcification of mitral leaflets. A trace of mitral regurgitation. PV: No structural PV abnormalities noted.TV: No structural TV abnormalities noted. Mild tricuspid regurgitation Werner: LV relaxation is impaired. LV filling pressure is elevated.Other: Insufficient TR jet to estimate PA systolic pressure. ---MEASUREMENTS:----- 2DParasternal Long [place] Ao An 1.8 cm LVPWd 1.1 cm Ao Rtd 3.5 cm Index 1.7 cm/m2 LA Ds 5 cm IVSd 1.2 cm RWT 0.42 LVIDd 5.3 cm Index 2.5 cm/m2 LV Mass 242 g (122-174) LVIDs 3.3 cm LVM Index 116 g/m2 LV%fs 38 % LVOT 1.8 cm LA Sng Plane LA Area 24 cm2 (8.8-23.4) LA Vol 76 ml Index 36 ml/m2 LA LngAx 6.4 cm LVOT LVOT Area 2.7 cm2 DOPPLERLVOT Stroke Vol LVOT TVI 33 cm HR 65 bpm LVOT LVOT SV 87 ml LVOT CO 5.6 l/min SVi 42 ml/m2 LVOT CI 2.7 l/m/m2 Signed 11/06/2019 05:34 Gloria Steinberg M.D. POC glucose 2019-06-14 12:57:54 Test Item Value Reference Range Interpretation Comme [facility] POC glucose (test code = 196 mg/dL 65-99 H RN NotifiedMeter ID: [id number]) [id number] tor: Iraheta Jyothy Lab Interpretation (test code = Abnormal 40401-3) Heladio MethodistBasic metabolic [id number] 07:08:06 Test Item Value Reference Range Interpretation Comments Sodium (test code = 137 135- 148 mEq/L 2951-2) Potassium (test code = 6.1 3.5- 5.0 mEq/L Robert led result with 2823-3) readback to Tracey Dixon/ Zhen 06/14/2019 07: 07 sldak Chloride (test code = 98 98- 112 mEq/L 5-0) CO2 (test code = 2027-9) 29 24- 31 mEq/L Anion gap (test code = 10@ANIO 7- 15 mEq/L 46534-2) BUN (test code = 3094-0) 42 mg/dL 8-23 H Creatinine (test code = 7.62 mg/dL 0.7-1.2 H 2160-0) Glucose (test code = 91 mg/dL 65-99 2345-7) Calcium (test code = 9.0 mg/dL 8.8-10.2 90819-5) Lab Interpretation (test Abnormal code = 69946-5) Heladio LymanistVancomycin level, [id number] 07:00:26 Test Item Value Reference Range Interpretation Comments Vancomycin, random 22.2 ug/mL Therapeut ic Ranges: (test code = Peak 30.0 - 40.0 53878-9) ug/mL Troug h 10.0 - 20.0 ug/mL Heladio MethodistEstimated [id number] 06:59:22 Test Item Value Reference Range Interpretation Comments Estimated GFR (test 7 mL/min/1.73 m2 Yvette patton Units code = 5488) InterpretationG 1 >=90 Caterina l or highG2 60-89 Mildly decrease dG3a 45-59 Mil dly to moderately decr [id number] 30-44 Moderately to s everely decreasedG4 15-29 Severe ly decreasedG5 <15 Kidney ashlee lureThe eGFR was calcul ated using the Chron ic Kidney Disease Epidemiology Collaboration ( CKD-EPI) equation. Interpretation is based on recommendati ons of the National dney [facility]-Kidn ey Disease Outcome s Quality Initiat katy (NKF-KDOQI) pub lished in 2013. Lab Interpretation Abnormal (test code = 48364-5) Heladio MethodistCBC with platelet and [id number] 06:36:37 Test Item Value Reference Range Interpretation Comments WBC (test code = 99181-3) 6.3 4.5- 11.0 k/uL RBC (test code = 20231-0) 3.53 m/uL 4.4-6 L HGB (test code = 718-7) 10.1 g/dL 14-18 L HCT (test code = 4544-3) 33.2 % 41-51 L MCV (test code = 787-2) 94.1 fL 82-100 MCH (test code = 785-6) 28.6 pg 27-34 MCHC (test code = 786-4) 30.4 g/dL 31-37 L RDW - SD (test code = 00539-4) 50.1 fL 37-55 MPV (test code = 90876-3) 10.2 fL 6.9-11 Platelet count (test code = 187 K/uL 150-400 35439-2) Nucleated RBC (test code = 03236-9) 0.00 /100 WBC Neutrophils (test code = 97186-9) 47.8 % 39-69 Lymphocytes (test code = 81332-6) 27.7 % 25-45 Monocytes (test code = 41471-5) 16.2 % 0-10 H Eosinophils (test code = 66526-6) 6.2 % 0-5 H Basophils (test code = 45414-5) 1.6 % 0-1 H Immature granulocytes (test code = 0.5 % 0-1 42246-8) Lab Interpretation (test code = Abnormal 98978-8) [facility] MethodistOR [place] < 1 [id number] 11:56:30Hm Interface, Radiology Results 06/13/2019 11:59 AM CDTEXAMINATION: [place] 1 HOURCLINICAL HISTORY: PainIMPRESSION:Fluoroscopy was provided. No radiologist present. Please see procedure report for discussion of procedure, findings.[facility]-[id number] IcvuypwaeCqjqbt0937-14-79 07:57:13Alyson Flores CRNA 06/13/2019 7:57 AMAirwayDate/Time: 06/13/2019 7:57 AMPerformed by: Alyson Flores CRNAAuthorized by: Fred Francisco MD Location: ORUrgency: ElectiveDifficult Airway: No Anesthesiologist: Fred Francisco MDResident/MARKET EDITOR/AA: Alyson Flores CRNAPerformed by: resident/MARKET EDITOR/AAPreoxygenated with 100% O2: Yes C-spine Precautions Maintained Throughout: Yes Mask Ventilation: Easy maskFinal Airway Type: Supraglottic airwayFinal LMA: I-GelLMA Size: 5Number of Attempts at Approach: 1Houston MethodistProthrombin time with QUP5434-95-18 05:47:24 Test Item Value Reference Range Interpretation Comments Prothrombin time (test 13.5 11.5- 14.5 sec code = 5902-2) INR (test code = 1.1 [facility] 65959-8) Normalized Rati o (INR) is a therapeutic m onitoring tool for patien ts who are stable on oral anticoagulant t herapy. An INR of 2.0-3.0 is suggested for d eep vein thrombosis/pulm onary embolism. [facility] srzzdsnc3634-51-01 05:32:04 Test Item Value Reference Range Interpretation Comments WBC (test code = 39004-8) 6.3 4.5- 11.0 k/uL RBC (test code = 75182-8) 3.55 m/uL 4.4-6 L HGB (test code = 718-7) 10.4 g/dL 14-18 L HCT (test code = 4544-3) 33.3 % 41-51 L MCV (test code = 787-2) 93.8 fL 82-100 MCH (test code = 785-6) 29.3 pg 27-34 MCHC (test code = 786-4) 31.2 g/dL 31-37 RDW - SD (test code = 01200-1) 48.0 fL 37-55 MPV (test code = 64259-3) 10.1 fL 6.9-11 Platelet count (test code = 198 K/uL 150-400 92690-7) Nucleated RBC (test code = 94727-4) 0.00 /100 WBC Lab Interpretation (test code = Abnormal 97519-0) [place] MethodistAerobic ywcuvqq9269-98-70 15:25:29 Test Item Value Reference Interpretation Comments Range Aerobic culture Staphylococcus, A Specimen isolate (test coagulase InformationSpe cimen code = 498) negativeOccasional Source: W oundSpecimen Site: Ankle Lab Abnormal Interpretation (test code = 38195-1) [place] MethodistXR Chest 1 Vw Kbgfbdoi4647-41-47 19:38:00Hm Interface, Radiology Results 06/11/2019 7:41 PM CDTEXAMINATION: XR CHEST 1 VW PORTABLECLINICAL HISTORY: shortness of breath new onset cough congestionCOMPARISON: 06/06/2019IMPRESSION:Mild interstitial congestive changes suspected as compared to previousMild cardiomegalyMinimal costophrenic angle effusionsNo pneumothoraxInterval removal right IJ dialysis catheterSingle view chest.STJO-[id number] MethodistHepatitis B surface Ab, quantitative 2019-06-11 11:18:15 Test Item Value Reference Range Interpretation Comments Hepatitis B surface <3.10 IU/L The anti -HBs is less than Ab (test code = 10 IU/L and is therefore 5193-8) negative. There is no evidence of rec overy from hepatitis B inf ection or evidence of ant ibody response to HBV vaccination.An anti-HBs result greater than or equal to 10 IU/ L implies immunity. For post-vaccinatio n antibody testing guideli levi for the general public refer to MMWR August 262004/Vol. 54(No. 16);- , and for healthcare work ers refer to MMWR August 262012/Vol. 62(No. 10);-19 .Reference Interval: anti- HBs 9.99 IU/L or less .. ..... Puwtmmmb82.00 I U/L or greater .... PositiveResults greater than 1,000.00 I U/L are reported as gre ater than 1,000.00 IU/L. This assay should not be u sed for blood donor scr eening, associated re-e ntry protocols, or f or screening Human Cell, Tis sues and Cellular and Ti ssue-Based Products (HCT/P ).Performed by SAV castro, [address], [place] [address] [email or web address] Cam wilks MD - Vicente ab. Director [place] OrthodoxBlood culture, aerobic & prptsohjg6038-90-97 07:03:08 Test Item Value Reference Range Interpretation Comments Blood culture No growth Specimen isolate (test after 5 days InformationSpe cimen code = 600-7) of Source: BloodS pecimen incubation. Site: Arm, righ t [place] MethodistGram nboeq4609-69-66 05:59:15 Test Item Value Reference Range Interpretation Comments Gram stain No WBC's or Specimen isolate (test organisms seen. Information Specimen code = 1469) Source: WoundSp ecimen Site: Ankle [place] MethodistPotassium zmium2475-40-15 12:07:59 Test Item Value Reference Range Interpretation Comments Potassium (test code = 2823-3) 3.4 3.5- 5.0 mEq/L L Lab Interpretation (test code = Abnormal 43464-1) [place] MethodistType and jlmtsn5302-90-83 06:13:00 Test Item Value Reference Range Interpretation Comments ABO grouping (test code = 883-9) O Rh type (test code = 40031-0) POS Antibody screen (gel) (test code = NEG 890-4) [place] MethodistSedimentation qjqm9806-15-25 05:16:11 Test Item Value Reference Range Interpretation Comments Sedimentation rate (test code = 29 0- 10 mm/hr H 68201-8) Lab Interpretation (test code = Abnormal 48444-7) [facility] Ankle Wo Contrast Gedxr9332-28-46 21:06:33Hm Interface, Radiology Results 06/09/2019 9:09 PM CDTEXAMINATION: MRI ANKLE WO CONTRAST RIGHTCLINICAL HISTORY: Osteomyelitis known ankle follow upCOMPARISON: CT right lower extremity06/08/2019FINDINGS:1.There is marked destruction of the talus, which is fragmented, flattened, eroded, and there is extensive surrounding synovial proliferation. There is associated edema and erosion ofthe distal tibial plafond, reactive edema of the distal fibula, and diffuse marrow edema and intraosseous cystic changes in the calcaneus. There is edema in the navicular with some reactive articular surface sclerosis proximally.2.There is no large joint effusion. There is comparatively little adjacent subcutaneous edema/cellulitis.3.There is localized soft tissue ulceration superficial to the lateral malleolus, however most of the destructive joint changes are some distance from this ulcer. The adjacent fibular cortex does not appear compromised.4.There is some peritendinous fluid around the peroneus tendons. The remaining ankle tendons appear generally intact.5.Diffuse high signal in the musclesof the foot are likely from diabetic myopathy.IMPRESSION:Marked destruction and collapse of the talus and advanced arthritic changes and synovitis of the ankle and hindfoot as described. There is extensive synovitis. Given that there is a comparative lack of significant cellulitis, and no obvious contiguous ulcer or abscess, the findings are most compatible with Charcot arthropathy.[facility]-[id number] Healthcare System Foot Wo Contrast Rrlfa5231-33-12 20:55:58Hm Interface, Radiology Results - 06/09/2019 8:59 PM CDTEXAMINATION: MRI FOOT WO CONTRASTRIGHTCLINICAL HISTORY: osteoCOMPARISON: CT of the right lower extremity 06/08/2019TECHNIQUE:Multiplanar multisequence MR of the right foot is performed without contrast.FINDINGS:1.There are degenerative arthritic changes in the first and third metatarsophalangeal joints and multiple interphalangeal joints. There is a mild joint effusion in the first and third metatarsophalangeal joint.2.Patient is status post second transmetatarsal amputation.3.The imaged mid to distal foot demonstrate no signs of osteomyelitis or septic arthritis.4.There is nonspecific edema in the muscles of the foot, likely diabetic myopathy.5.Referred ankle MRI for further findings.IMPRESSION:No signs of osteomyelitis or septic arthritis in the mid to distal foot.[facility]-[id number] Hawley duplex arterial lower mnmfpziie1902-69-06 12:03:39Hm Interface, Radiology Results 06/08/2019 12:06 PM CDTEXAM: Right lower extremity arterial DopplerHISTORY: ClaudicationTECHNIQUE: Real-time as well as pulsed and color Doppler evaluation ofright common femoral, femoral, popliteal, posterior tibial, anterior tibial, and dorsalis pedis arteries are evaluated. The examination includes a full duplex Doppler scan of the blood vessels (real-time P mode grayscale, Doppler spectral analysis, and Doppler color flow imaging). IMPRESSION:1.Significant arterial peripheral vascular disease is noted within the right lower extremity as evidenced by monophasic waveform morphology within the infrapopliteal segment. This can be better evaluated with CTA or conventional arteriography as clinically.2.Probable focal stenosis within the mid posterior tibial artery.Findings:Calcified atherosclerotic disease is seen throughout the femoropopliteal and infrapopliteal segments of the right lower extremity. Flow is seen within all evaluated arteries.Biphasicwaveforms are seen within the common femoral and superficial femoral artery, however, convert to monophasic waveforms within the popliteal, anterior tibial, posterior tibial, and dorsalis pedis arteries. Variations in peak systolic velocity are noted throughout the right lower extremity which are nonspecific (except the mid posterior tibial artery measuring 175 cm/s) and are not significantly elevated or demonstrate a significant gradient in peak systolic velocity to suggest a focal area of stenosis.In the arteries demonstrating monophasic waveforms, there is no evidence of blunting of the waveformmorphology.Collateral arterial vasculature is noted arising from the superficial femoral artery.PEAKSYSTOLIC VELOCITIES: RIGHT LEG: COMMON FEMORAL: 105 cm/sFEMORAL:Proximal: 97 cm/sMid: 135 cm/sDistal: 129 cm/sPOPLITEAL:Proximal: 89 cm/sMid: 119 cm/sDistal: 83 cm/sPOSTERIOR TIBIAL:Proximal: 86 cm/sMid: 100 cm/sDistal: 89 cm/sANTERIOR TIBIAL:Proximal: 50 cm/sMid: 175 cm/sDistal: 96 cm/sDORSALIS PEDIS: 119 cm/sHMWB-[id number] MethodistCT Lower Extremity Wo Contrast Right 2019-06-08 10:24:42Hm Interface, Radiology Results 06/08/2019 10:27 AM CDTCT LOWER EXTREMITY WO CONTRAST RIGHTCLINICAL INDICATION: Osteomyelitis suspected tib fib initial examTECHNIQUE: Multidetector CT ofthe right lower extremity/foreleg was performed without intravenous iodinated contrast with automated exposure control and/or iterative reconstruction techniques to radiation dose.COMPARISON: NoneFINDINGS:BONES: There are chronic posttraumatic changes about the ankle. There is a chronic displaced fracture involving the medial malleolus with multiple small comminuted fragments through the interval. Prominent hindfoot valgus is also noted. There is a chronic deformity of the talar dome with sclerotic as well as partially resorbed fracture of the talar dome incorporating nearly the articularsurface of the talus. There are adjacent areas of erosion however which are more pronounced than expected for trauma alone around the talar dome residual fragment. Similarly, there are erosive changes involving the distal subarticular medial tibia as well as about the lateral distal tibia. Bones are demineralized which probably reflects disuse. MRI with and without contrast is recommended for furtherresonance or whether this reflects potential inflammatory changes, Charcot arthropathy possible alter natively..JOINT(S): Extensive at least in part posttraumatic changes of the ankle as above. There is extensive soft tissue about the ankle consistent with advanced synovitis, infection not excluded. MRI is recommended in follow-up.SOFT TISSUES: There is extensive soft tissue swelling about the ankle both medially and laterally. No ulceration is noted over the lateral malleolus without underlying changes in bone. Severe arteriosclerosis is present consistent with diabetic history. Atrophy of the tibialis anterior is present, the distal tendon not well seen, attention at time of MRI recommended. Mild diffuse muscular atrophy is noted. IMPRESSION:Chronic appearing fractures involving the medial malleolus with disruption of the talar dome as described. In addition, there are are erosive changes/osteolysis surrounding the talar dome defect as well as the distal tibia and given extensive soft tissue synovitis, MR is recommended for further evaluation to evaluate Charcot versus potential infe ctious cause.*HMH-[id number] MethodistComprehensive metabolic panel 2019-06-08 05:52:48 Test Item Value Reference Range Interpretation Comments Sodium (test code = 2951-2) 136 135- 148 mEq/L Potassium (test code = 2823-3) 4.8 3.5- 5.0 mEq/L Chloride (test code = 2075-0) 98 98- 112 mEq/L CO2 (test code = 8-9) 28 24- 31 mEq/L Anion gap (test code = 11733-9) 10@ANIO 7- 15 mEq/L BUN (test code = 3094-0) 20 mg/dL 8-23 Creatinine (test code = 2160-0) 5.00 mg/dL 0.7-1.2 H Glucose (test code = 2345-7) 160 mg/dL 65-99 H Calcium (test code = 10569-4) 9.0 mg/dL 8.8-10.2 Protein (test code = 2885-2) 6.5 g/dL 6.3-8.3 Albumin (test code = 1751-7) 3.3 g/dL 3.5-5 L A/G ratio (test code = 1759-0) 1.0 0.7-3.8 Alkaline phosphatase (test code = 124 U/L 40-129 68-6) AST (test code = 1920-8) 29 U/L 10-50 ALT (test code = 1742-6) 18 U/L 5-50 Total bilirubin (test code = <0.2 0.2-1.2 1974-10) Lab Interpretation (test code = Abnormal 55233-8) [place] MethodistMagnesium wfmmc3992-77-04 05:52:48 Test Item Value Reference Range Interpretation Comments Magnesium (test code = 47104-1) 2.4 mg/dL 1.6-2.4 [place] MethodistPhosphorus cceej8246-06-06 05:52:48 Test Item Value Reference Range Interpretation Comments Phosphorus (test code = 2777-1) 3.7 mg/dL 2.4-4.5 [place] MethodistIonized npygpca5970-16-54 05:29:04 Test Item Value Reference Range Interpretation Comments pH (test code = 2753-2) 7.40 Ionized calcium (test code = 1.08 mmol/L 1.11-1.32 L ) Lab Interpretation (test code = Abnormal 01192-5) Heladio JungHepatitis B core antibody [id number] 05:10:29 Test Item Value Reference Range Interpretation Comments Hepatitis B core total Ab (test Non-reactive Non-reactive code = 21498-3) Heladio Hoganpatitis B surface pssxhwd3376-41-80 22:52:11 Test Item Value Reference Range Interpretation Comments Hepatitis B surface Ag (test Non-reactive Non-reactive code = 5195-3) Heladio JungIR Tunneled Dialysis Catheter Wcskndj5337-41-21 14:40:34Hm Interface, Radiology Results 06/07/2019 2:43 PM CDTProcedure:Tunneled central venous catheter removalPerforming Radiologist:Trino Mcbride MDAssistants:NoneAnesthesia Type: Lidocaine 1%was used for local anesthesia.Preprocedure Diagnosis:End-stage renal diseasePost Procedure Diagnosis:Same Technique:After explaining the procedure as well as its benefits and risks including but not limited to bleeding, infection, and damage to adjacent structures, all of the patient's questions were answered to apparent satisfaction and written informed consent was then obtained.The previously placed tunneled central venous catheter and surrounding skin were prepped and draped in usual sterile fashion. Lidocaine was administered locally.Using a combination of sharp and blunt dissection the catheter cuff was freed from the surrounding soft tissues. The catheter was then removed from the patient inits entirety. Hemostasis was achieved after direct manual compression. The patient tolerated the procedure well.Complications:NoneSpecimens Removed:NoneEstimated Blood Loss:Less than 1 mLBlood/Blood Products Administered:NoneGrafts/Implants:As described in the above report.Impression:Successful, uncomplicated tunneled central venous catheter removal.[facility]-[id number] MethodistUs duplex venous upper extremity 2019-06-07 11:33:45Hm Interface, Radiology Results 06/07/2019 11:36 AM CDTEXAMINATION: US DUPLEX VENOUS UPPER EXTREMITY RIGHTCLINICAL HISTORY: M79.603 Pain in arm unspecified, M79.89 Other specified soft tissue disorders, arm pain and swellingCOMPARISON: None.TECHNIQUE: Grayscale, color Doppler, and spectral waveform analysis of the right upper extremity deep venous system was performed.FINDINGS:The right internal jugular vein demonstrates normal flow and compressibility. The right subclavian, axillary, brachial, basilic, cephalic, and forearm veins reveal no evidence of thrombosis. The veins demonstrate normal Doppler flow and normal compressibility.A patent right brachial artery to basilic vein arteriovenous fistula is present. Complex avascular fluid collection likely hematoma is noted adjacent to the fistula anastomosis measuring on the order of 4.3 x 2.3 x 3.1 cm.Subcutaneous edema is present.R ight-sided central venous catheter is noted.IMPRESSION:No sonographic evidence of deep venous thrombosis of the right upper extremity.Patent right upper extremity AV fistula with small to moderate adjacent hematoma.[facility]-[id number] Leija MethodistHemoglobin [id number] 06:23:21 Test Item Value Reference Range Interpretation Comments Hemoglobin A1C (test 5.2 % 4-5.6 HbA1c c utoffs for code = 41280-1) diagnosing d iabetes:4.0% - 5.6% = normal 5.7% - 6.4% = increase d risk for diabetes (prediabetes) >=6.5% = diabetes Goals for glycemic contro l (ADA 2016)< 7.0% Ta rget for non shannon lts with diabetes. More or less stringent targe ts may be appropriate for individual ifeoma ents. <7.5% Target for Children and ad olescents with type 1 larissa betes. Leija MethodistECG 12 odhw3366-08-20 18:39:44 Test Item Value Reference Range Interpretation Comments Ventricular rate (test 78 code = 253) Atrial rate (test code 78 = 255) NV interval (test code 150 = 266) QRSD interval (test 88 code = 260) QT interval (test code 412 = 264) QTC interval (test code 469 = 265) P axis 1 (test code = 50 267) QRS axis 1 (test code = 47 268) T wave axis (test code 45 = 270) EKG impression (test Normal sinus code = 273) rhythm-Cannot rule out Anterior infarct , age undetermined-Abnormal ECG-In automated comparison with ECG of 01-MAR-2019 14:40,-T wave amplitude has increased in Anterior leads- [place] MethodistXR Foot 2 Vw Ruzje7595-99-84 05:32:35Hm Interface, Radiology Results - 06/06/2019 5:35 AM CDTEXAMINATION: XR FOOT 2 VW RIGHTCLI NICAL HISTORY: Osteomyelitis suspected foot swelling diabeticCOMPARISON: None.IMPRESSION:Prior amputation of the first digit through the interphalangeal joint an of the second digit through the head of the metatarsal. There is edema of the great toe. No cortical erosion or periosteal reaction to indicate acute osteomyelitis is identified.No acute fracture. Diffuse vascular atherosclerosis.[facility]-[id number] MethodistLactic acid qnadr8605-03-70 22:36:08 Test Item Value Reference Range Interpretation Comments Lactic acid (test code = 75524-7) 1.2 mmol/L 0.5-2.2 [facility] ED Preliminary Interpretation - Not an Nlkem6860-31-67 21:38:59 Test Item Value Reference Range Interpretation Comments NATASHA (test code = NATASHA) Ludwig Escobar III, MD 06/06/2019 8:26 [facility] [place] Preliminary Interpretation - Not an OrderPerformed by: Ludwig Escobar III, MDAuthorized by: Ludwig Escobar III, MD ECG reviewed by ED Physician in the absence of a mastic worker: yes Interpretation: Interpretation: abnormal Quality: Tracing quality: Limited by artifactRate: ECG rate: 78 ECG rate assessment: normal Rhythm: Rhythm: sinus rhythm Ectopy: Ectopy: none QRS: QRS axis: Normal QRS intervals: NormalConduction: Conduction: normal ST segments: ST segments: Non-specificT waves: T waves: non-specific Lab Interpretation Abnormal (test code = 66880-5) [place] MethodistCHEM RCCQK7170-27-26 20:06:002.1MemEast [facility] Hospital and ClinicsannHEMATOLOGY 2019-03-06 20:06:00 Test Item Value Reference Range Interpretation Comments INR (test code = INR) 0.99 1 0.85-1.17 [facility] HospitalHeziafuUMQSEOBDWM9739-75-15 20:06:00 Test Item Value Reference Range Interpretation Comments PT (test code = PT) 12.9 s 12.0-14.7 [facility]OcexdhmRRVJTJPFFQ8016-91-34 20:06:00 Test Item Value Reference Range Interpretation Comments PTT (test code = PTT) 43.3 s 22.9-35.8 [facility] GxsryvhODIBVQSURI1196-70-31 20:06:00>100[facility]orial HermannIMMUNOLOGY 2019-03-06 20:06:00<0.5[facility] LlsqxqlLESMVGODIY0598-28-40 20:06:00<10 Memorial PfdnzaaYSHUZDYQKI4716-65-85 20:06:07986.0Memorial HermannCHEM PANEL 2019-03-06 18:38:0013Memorial HermannCHEM OWWFS6453-68-57 18:38:004.7Mem[facility] HermannCHEM VTTKS7284-16-92 18:38:19061Klvprlch HermannCHEM NGJTQ4175-98-17 18:38:004.69Memorial HermannCHEM QQMFK3782-32-54 18:38:19568Ntnphdxp HermannCHEM NLZYD5012-31-48 18:38:98235Erjropow HermannCHEM NJPPN1373-44-43 18:38:0015 [facility] HermannCHEM BRMBN7922-83-60 18:38:0024Memorial HermannCHEM PANEL 2019-03-06 18:38:008.5[facility] HermannCHEM WPPBD0565-19-49 18:38:0015.7[facility] ZsgzajoHLITPZVLVV7262-99-01 18:38:000.3[facility] ZwzwyowZZCMCMAONG3504-72-72 18:38:000.1[facility] VdsuaphNIBLUXCBVT4832-09-57 18:38:003.7[facility] [place] UTSMZPFJQS9463-74-71 18:38:000.8[facility] UbscbwjMPQSPJSFQU0029-06-82 18:38:000.5 Memorial NbjhffgQNAUOYMBHO2135-75-26 18:38:0015.8[facility] HermannHEMATOLOGY 2019-03-06 18:38:0068.7[facility] OiqwjlbFGQDMWHFRD1191-10-48 18:38:001.9[facility] OtonbasOBTDZEFTZL3299-67-48 18:38:004.9[facility] YmjayxcOCGRJIZLOQ7231-07-47 18:38:008.7[facility] JajgdqdLZQRXAKNCE9644-32-36 18:38:0015.4[facility] EUIOHRATEF3407-76-23 18:38:00 Test Item Value Reference Range Interpretation Comments MCH (test code = MCH) 30.1 pg 27.0-31.0 [facility] KfngssoZCNTQEIOYX4675-54-12 18:38:13466Kinwvmlf HermannHEMATOLOGY 2019-03-06 18:38:009.6[facility] IbzdbspDECIBCRYSR0916-49-72 18:38:0032.6[facility]orial KfilgrjEOANJYOKRL4147-11-37 18:38:0029.4Memorial GvipmkfQBXCJUQJYG6147-44-07 18:38:0092.2[facility] XztwoiyEUWTRHIHIS1926-94-52 18:38:007.2[facility] Ganesh IDYHSUZZDM3414-60-42 18:38:003.19[facility]orial EnujvspTAHUBJAXPL6388-90-94 18:38:00 5.4[facility]orial IsvcvdfVBHASALKNS4765-42-23 13:30:00Negative *NA*(03/05/19 8:30 AM) [facility] HermannGENTAMICIN:SUSC:PT:ISOLATE:ORDQN:WDF1604-34-25 06:40:00 Citrobacter koseriMemorial HermannGENTAMICIN:SUSC:PT:ISOLATE:ORDQN:ZIA1267-07-50 06:40:00Pseudomonas aeruginosaMemorial Waterford GENTAMICIN:SUSC:PT:ISOLATE:ORDQN:MSW3395-75-80 06:40:00Klebsiella pneumoniae ssp pneumoniaeMemorial HermannGENTAMICIN:SUSC:PT:ISOLATE:ORDQN:IPF2072-97-57 06:40:00Enterobacter cloacaeMemorial HermannCHEM EVVLG8263-88-64 03:51:008.1 [facility] HermannCHEM DBPYO0298-02-69 03:51:000.8Mem[facility] HermannCHEM PANEL 2019-03-05 03:51:0019Mem[facility] HermannCHEM BUXWY8187-06-41 03:51:000.4Mem[facility] HermannCHEM AECPF8874-19-69 03:51:004Mem[facility] HermannCHEM FLLDS8889-92-75 03:51:0015Memorial HermannCHEM DCFZS3357-22-54 03:51:002.5Mem[facility] HermannCHEM XEEDI2539-72-16 03:51:006.0[facility] HermannCHEM NRGCW6402-82-83 03:51:67177 [facility] HermannCHEM CQIDN0131-08-69 03:51:0012.60Mem[facility] HermannCHEM PANEL 2019-03-05 03:51:0055Memorial HermannCHEM TQHFI1569-56-21 03:51:95299Qptgcdsa HermannCHEM QMKMX5659-91-46 03:51:65170Qycawtke HermannCHEM NIAXZ6712-01-74 03:51:004.3[facility] HermannCHEM BQPLP1703-46-10 03:51:41285Rxzzvbut HermannCHEM LJAPV7998-51-33 03:51:007.6[facility] HermannCHEM SGYUO3773-20-81 03:51:0025 Memorial HermannCHEM STVAV9286-16-38 03:51:0014.3Mem[facility] HermannCHEM PANEL 2019-03-05 03:51:00 Test Item Value Reference Range Interpretation Comments B/C Ratio (test code = B/C Ratio) 4 1 6-25 [facility] HermannCHEM LOEII3662-79-01 03:51:003.5Mem[facility] HermannCHEM PANEL 2019-03-05 03:51:00 Test Item Value Reference Range Interpretation Comments A/G Ratio (test code = A/G Ratio) 0.7 1 0.7-1.6 [facility] UcqwnwwHYWXIUKOXP2970-69-25 03:51:002.3[facility] 2019-[facility]-05 03:51:003.3[facility] NpuyykuGGSNGYEEVK6844-32-59 03:51:001.0[facility] EjhpjufXFFMYFMNNY4401-41-25 03:51:000.6[facility] YhzvtcfAKSTDCNLAU4600-47-66 03:51:000.3[facility] MqyduetOOXTTSTWDS1952-51-59 03:51:0063.2[facility] FXULCYMHUY3960-75-66 03:51:0018.1[facility] HfnnarkAPTWKPELPY9148-84-48 03:51:00 0.1[facility] YsshalcMHPXJKCQLU6322-55-95 03:51:0011.0[facility]annHEMATOLOGY 2019-03-05 03:51:005.4[facility] MyhusopYHDATYTOPY3354-18-33 03:51:00 Test Item Value Reference Range Interpretation Comments MCH (test code = MCH) 29.8 pg 27.0-31.0 [facility] PzmcnebCRZBBHRLYA4373-17-58 03:51:0033.1[facility]annHEMATOLOGY 2019-03-05 03:51:005.3[facility] UtrggdmMPFJRJVMSC2285-65-49 03:51:002.61[facility] MnghrkpDUIZMAKRYU3676-14-01 03:51:007.8[facility] RzauulvTHANOYKAHK6680-78-08 03:51:0023.5[facility] XdmoskwJPGQCJSIRZ8819-70-03 03:51:0090.1[facility] DVLNYJYSIY4460-68-52 03:51:007.6[facility] CxyfgwpIESTVXWBHN4685-18-34 03:51:40619 [facility] QiwesvmYAOLLUSNIB8180-82-24 03:51:0015.6[facility] HermannIMMUNOLOGY 2019-03-05 03:51:47370.0[facility] DfdhgjtPHLWFUXRWE9011-81-39 18:20:006.0[facility] PynkoenMJJICLYSCG8858-14-73 18:20:0033.0[facility] IzjdyskONTMHRRFQZ8422-85-57 18:20:003.64[facility] DwypvbaTAXQRLKUGA8544-88-55 18:20:0090.5[facility] OUBZHDXCLK1848-84-73 18:20:0010.8[facility] OyojglqXPBBGKHQLR8674-55-69 18:20:00 14.6[facility] XxtqtlbIHCHGQBLCO3385-65-00 18:20:78734Ieonojgu HermannHEMATOLOGY 2019-02-21 18:20:0032.9[facility] YhkefobIHLKENMBQK5953-72-43 18:20:00 Test Item Value Reference Range Interpretation Comments MCH (test code = MCH) 29.8 pg 27.0-31.0 [facility] TbyjczpQMJDHSLXXP7508-85-06 18:20:007.8[facility] SZAQWRW3139-19-66 15:03:00Negative (02/21/19 10:03 AM)[facility] BMGKOXAHKRSQ4912-48-62 15:03:004.3[facility] HermannCHEM FODTP1081-89-43 14:18:007 [facility]annCHE[facility] ZYCQM8803-45-52 14:18:0014.2[facility]annCHEM PANEL 2019-02-21 14:18:0035[facility]annCHE[facility] BLYDO4405-27-39 14:18:48716Wzmrfgij HermannCHEM MNJID2691-07-15 14:18:008.4[facility]annCHE[facility] TTKZW7273-72-11 14:18:0026[facility]annCHE[facility] GMCOC8065-72-71 14:18:007.88[facility]annCHE[facility] RYGHR1270-68-49 14:18:0075[facility]annCHEM UZHCF2578-56-78 14:18:004.2 [facility]annCHE[facility] OIJUS1167-46-86 14:18:93262Cslvbwir HermannBLOOD BANK MRGZHNR3918-62-60 15:27:00Negative (01/29/19 10:27 AM)[facility]annCHEM PANEL 2019-01-29 15:27:006[facility]annCHE[facility] KTLPK5188-53-36 15:27:06702Tfsnlctu HermannCHEM TUDGO5105-38-91 15:27:004.3[facility]annCHE[facility] INBBM7618-67-43 15:27:0027[facility]annCHE[facility] ZGOYZ8117-61-56 15:27:008.2[facility]annCHE[facility] EURYL5350-82-11 15:27:37280Aspfpnjb HermannCHEM LGQQN9107-99-19 15:27:19974 [facility]annCHE[facility] PPPCU4471-54-14 15:27:008.24[facility]annCHEM PANEL 2019-01-29 15:27:0045[facility]annCHEM TEFIW3355-98-87 15:27:0013.3[facility] GrdjcwoGJCHWNHGHL6041-22-96 15:27:000.6[facility] JnhykyeGIBPDYHEAX5157-11-08 15:27:000.3[facility] IjcujemKHOOCGUETL0458-03-55 15:27:000.1[facility] DPQBYOGRZC3131-47-34 15:27:0011.3[facility] InhidotNSRUXFMGCT8840-07-38 15:27:00 1.5[facility] BlbwshdRKQGKFZBUY8672-08-50 15:27:005.5[facility]annHEMATOLOGY 2019-01-29 15:27:0015.4[facility] FyncbpeXFMSLHNIMA7154-36-80 15:27:0066.3[facility] FdwzhfoIRWWROFBUA1512-67-03 15:27:003.6[facility] CctplenUTCVFONQYK4864-54-16 15:27:000.8[facility] PlwedxfHDEZFLTINA4635-87-22 15:27:00 Test Item Value Reference Range Interpretation Comments PTT (test code = PTT) 43.7 s 22.9-35.8 [facility] CjdgcncQBABZWGSCH7413-18-79 15:27:00 Test Item Value Reference Range Interpretation Comments INR (test code = INR) 1.00 1 0.85-1.17 [facility] ZrykutxDLUNOEDKYL2361-98-68 15:27:00 Test Item Value Reference Range Interpretation Comments PT (test code = PT) 13.0 s 12.0-14.7 [facility] DosakhuTMWQBFBYQC3646-70-25 15:27:18621Rnbdyaqs HermannHEMATOLOGY 2019-01-29 15:27:007.5[facility] EbmgjmvPOTFPYEARZ0431-04-15 15:27:005.4[facility] AaiocdcRPXNEMWMCO9713-79-92 15:27:003.90[facility] MxtvrnkMOAISDGSYY9853-78-68 15:27:00 Test Item Value Reference Range Interpretation Comments MCH (test code = MCH) 30.3 pg 27.0-31.0 [facility] UmpzlacQNVKLJFRMY0379-18-53 15:27:0033.6[facility]annHEMATOLOGY 2019-01-29 15:27:0011.8[facility] PgigelxDPIRWOVSFQ6822-87-88 15:27:0090.1[facility] DhlmgdpELDXDXCCDI5809-37-42 15:27:0035.1[facility] KkexykrCFYBZQLPQY8839-26-01 15:27:0014.6[facility]BL[facility] AOVMADT3020-13-07 17:35:00Negative (12/11/18 12:35 PM)[facility]annCHEM CVZEG3321-93-97 17:35:006[facility] CHEM AAXEN5528-62-80 17:35:0062[facility]annCHEM WRCFQ8640-03-64 17:35:0062 [facility]annCHEM APXIL6058-90-83 17:35:008.1[facility]annCHEM PANEL 2018-12-11 17:35:0027[facility] HermannCHEM ZEGNN5062-64-82 17:35:50450Nydgxpjc HermannCHEM HHWQX4490-98-22 17:35:006.0[facility] HermannCHEM XVGSV3505-76-08 17:35:00180Hglpqqgk HermannCHEM ZDARE0104-68-16 17:35:008.46[facility] HermannCHEM SGERK6353-40-69 17:35:0014.0[facility] CpslciqMXIOZJGCFU5100-82-67 17:35:001.9 [facility] GnivstzETUIFNZXVD9475-60-54 17:35:002.7[facility]annHEMATOLOGY 2018-12-11 17:35:004.4[facility] DoaxjtwJQNQFOUOHH7326-45-30 17:35:0011.6[facility] ZgbyepnMPFKATWIXD3504-73-44 17:35:000.1[facility] OsxbipcCPNQSKGGZJ4246-52-94 17:35:001.1[facility] TracvgaOBBQZLZMRN4769-39-17 17:35:000.2[facility] SGXBDVIYZS6837-36-73 17:35:000.5[facility] VncunikFBHEUZLEZK5569-51-86 17:35:00 23.7[facility] XwfgtplFUINKANCYT9208-60-13 17:35:0058.4[facility]annHEMATOLOGY 2018-12-11 17:35:00 Test Item Value Reference Range Interpretation Comments PTT (test code = PTT) 42.9 s 22.9-35.8 [facility] VpenrdaSKFBKFVDGO4113-10-29 17:35:00 Test Item Value Reference Range Interpretation Comments INR (test code = INR) 1.04 1 0.85-1.17 [facility] GgezcxbEOMMOWCDJA7978-69-87 17:35:00 Test Item Value Reference Range Interpretation Comments PT (test code = PT) 13.4 s 12.0-14.7 [facility] DpbhguaYORKHOOHLF1450-12-78 17:35:0032.3[facility]annHEMATOLOGY 2018-12-11 17:35:0016.9[facility] DicccboDGKOKDWDQA8487-93-07 17:35:00 Test Item Value Reference Range Interpretation Comments MCH (test code = MCH) 30.1 pg 27.0-31.0 [facility] CpjmigxFQPVDATENQ2564-55-65 17:35:41179Wwudnxrw HermannHEMATOLOGY 2018-12-11 17:35:008.1[facility] OrmvzasZHPFXHJUQA9627-38-66 17:35:0093.1[facility] OzdiqyxFFXXVZRHNV7369-83-61 17:35:0011.0[facility] VkefszuBNPUHLWVCJ6034-89-43 17:35:0034.1[facility] BnyvufcDEWPMEASFH5328-57-12 17:35:004.6[facility] NULGQMDQAF8802-59-47 17:35:003.66[facility] HermannSPECIAL OKPHXTIAR8231-64-62 17:35:005.0[facility]
[2020-03-05] MEDS ORDERED: ROCURONIUM 50 MG/5 ML VIAL IV ONE (11:14)
[2020-03-05] MEDS ORDERED: KETOROLAC 30 MG/ML INJ ONE (11:15)
[2020-03-05] MEDS ORDERED: NEOSTIGMINE 1 MG/ML -5 ML ONE (11:21)
[2020-03-05] MEDS ORDERED: GLYCOPYRROLATE 0.2 MG/ML SYR ONE ×2 (11:21→11:36)
[2020-03-05] MEDS: MORPHINE 4 MG/ML SYR ONE ×2 (11:52→12:02)
[2020-03-05] MEDS ORDERED: ONDANSETRON 4 MG/2 ML VIAL ONE (11:55)
[2020-03-05 12:04] VITALS: O2SAT 96
[2020-03-05 12:37] VITALS: BP 130/64; TEMP 96.7
[2020-03-05] MEDS ORDERED: CODEINE 30MG/APAP 300MG TAB ONE (12:46)
--- NOTE | 2020-03-05 14:20 | DS ---
Date of Discharge: 03/05/2020 Preoperative Diagnosis: Incarcerated tender incisional umbilical hernia. Postoperative Diagnosis: Incarcerated tender incisional umbilical hernia. Procedures: Repair of incarcerated incisional tender umbilical hernia. Disposition: Home. Activity: As tolerated. No heavy lifting. Followup: Follow up in my office in 1 week. Call for appointment at [phone]. Keep area dry until he sees me in my clinic once again in 1 week. He was advised to once again conta ct his dialysis doctors for hemodialysis rescheduling as before. Medications: Includes Cipro 250 p.o. q.12 and Tylenol No.3 q.4 hours p.r.n. pain. HM/MODL Voice ID: [id number] Report ID: [id number]
--- NOTE | 2020-03-05 15:05 | OP ---
Date of Procedure: 03/05/2020 Surgeon: Gianfranco Koehler MD Picking Tech: Cathy Sorenson. Preoperative Diagnosis: Incarcerated incisional tender umbilical hernia. Postoperative Diagnosis: Incarcerated incisional tender umbilical hernia. Procedure: Open repair of an incarcerated incisional umbilical hernia. Estimated Blood Loss: Less than 10 mL. Indications: This is the case of a 59-year-old patient with history of renal failure, with an incarc erated incisional umbilical hernia. Patient has multiple surgeries before including gallbladder, rigoberto n he claimed peritoneal dialysis catheters. The area is becoming tender, more pronounced, bulging ou t. He wants that repaired. Benefits, alternatives, and risks of repair were fully explained which i nclude, but are not limited to infection, bleeding, damage to adjacent structures, anesthesia complic ation, recurrence, MT, and even . He also understands this may not relieve any symptoms. He mi ght need more than one surgical intervention. He understands also the importance of losing weight an d no heavy lifting. He signed a consent. Description Of Procedure: Patient was brought to the operating room, placed in supine position. Ane sthesia was done without complication. Abdominal area was prepped and draped in sterile fashion. Lo abimael anesthesia was applied followed by curvilinear incision in the infraumbilical region. Incision w as carried down to fascia. umbilical sac that was removed from the skin, but still had in carcerated omentum. We opened the hernia sac, finding the incarcerated omentum. We were trying to r educe that, but it was too large to be reduced so carefully after making sure the intestines are prot ected I proceeded then to pack clamp the omentum and tied this with 3-0 chromic and then after inspec tion reviewed the rest of the omentum into the abdominal cavity and the omentum and hernia sac was se nt to the pathologist. The area was irrigated. The fascia edges look strong enough to be all held w ithout mesh. This patient had multiple procedures done in the past. He may need some new ones if he ever wants to go back to peritoneal dialysis, so we are trying to keep the abdomen as as we can and so since he does not need the mesh at this moment, we are going to close this by primary i ntention with a #1 Prolene in figure-of-8 fashion multiple times. The fascial edges came back togeth er nicely, subcutaneous incision closed with 3-0 chromic, and the skin with leann. Sponge count an d instrument counts were correct. The patient tolerated the procedure well. [facility] KING/QUINTIN Voice ID: [id number] Report ID: [id number]
== END 2020-03-05 13:05 | disposition home or self-care (01) ==
LOC: OR 08:56
PROVIDERS: ATTEND Surgery
PROC: 0WQF0ZZ Repair Abdominal Wall, Open Approach (ICD-10-PCS; principal; 2020-03-05 10:00)
DX: K42.0 Umbilical hernia with obstruction, without gangrene (principal); Z11.59 Encounter for screening for other viral diseases; I12.0 Hypertensive chronic kidney disease with stage 5 chronic kidney disease or end stage renal disease; E11.22 Type 2 diabetes mellitus with diabetic chronic kidney disease; N18.6 End stage renal disease; Z99.2 Dependence on renal dialysis; Z90.49 Acquired absence of other specified parts of digestive tract; Z83.3 Family history of diabetes mellitus; Z82.49 Family history of ischemic heart disease and other diseases of the circulatory system
CPT/HCPCS: 93005; 85025; 80048; 36415 ×2; 84132; 82947 ×2; 88302; 71046; 49587; J2704; J2250; J3010; J1100; J2710; J0690; J7030; J2405

== ENCOUNTER 2020-09-20 13:08 | Emergency (ER) | payer OTHER, BC ==
--- OUTSIDE RECORDS SUMMARY | 2020-09-20 13:12 | XMS REPORT | Clinical Summary ---
:1960 Author Organization [facility] Address [address] [place] [address] Care Team Providers Name Role Phone MD Estephania Primary Care Provider Allergies No Known Active Allergies Medications Medication Sig Dispensed Refills Start Date End Date Status INSULIN Inject 35 Units 0 Acti ve GLARGINE,HUM.REC.A under the skin NLOG (LANTUS SUBQ) daily. BUMETanide (BUMEX) Take 2 mg by 0 Active 2 MG tablet mouth daily. fluticasone 2 sprays (100 mcg 15.8 mL 0 09/04/2018 Active (FLONASE) 50 total) by Each mcg/actuation Nare route daily. nasal spray tamsulosin Take 1 capsule 1 capsule 3 09/19/2018 Act katy (FLOMAX) 0.4 mg (0.4 mg total) by capsule mouth daily. aspirin (ECOTRIN) Take 81 mg by 0 Active 81 MG enteric mouth daily. coated tablet nitroglycerin Place 0.4 mg 0 Act katy (NITROSTAT) 0.4 MG under the tongue SL tablet every 5 (five) minutes as needed for chest pain. albuterol (PROAIR ProAir HFA 90 0 Active HFA) 90 mcg/actuation mcg/actuation aerosol inhaler inhaler lactulose lactulose 10 0 12/12/2017 Active (CHRONULAC) 10 gram/15 mL oral gram/15 mL solution solution VIOS AEROSOL See Admin 0 10/01/2018 Active DELIVERY SYSTEM Instructions. device gabapentin Take 400 mg by 0 Acti ve (NEURONTIN) 300 mg mouth nightly. capsule PATIENT NOW TAKES 400 ONCE DAILY atorvastatin atorvastatin 10 0 A ctive (LIPITOR) 10 MG mg tablet tablet clopidogrel clopidogrel 75 mg 0 Active (PLAVIX) 75 mg tablet tablet traZODone Take 100 mg by 0 Activ e (DESYREL) 100 MG mouth nightly. tablet L. Take 2 capsules 1 capsule 1 09/19/2018 Dis continued acidophilus,casei, by mouth daily. 0 rhamnosus (BIO K PLUS) 50 billion cell capsule,delayed release(DR/EC) capsule zolpidem (AMBIEN) Take 10 mg by 0 03/26/20 2 Discontinued 5 MG tablet mouth nightly as 0 needed for sleep. pregabalin Take 25 mg by 0 Disco ntinued (LYRICA) 25 MG mouth 2 (two) 0 capsule times a day. losartan (COZAAR) Take 100 mg by 0 02 Discontinued 100 MG tablet mouth daily. 0 prasugrel Take 1 tablet (10 30 tablet 11 11/03/2018 D iscontinued (EFFIENT) 10 mg mg total) by 0 tablet mouth daily for 30 days. acetaminophen-code TK 1 T PO BID PRF 1 06/30/2019 Discontinued ine (TYLENOL WITH JOINT PAIN 0 CODEINE #3) 300-30 mg per tablet Active Problems Problem Noted Date Alcohol use disorder, severe, dependence 04/23/2020 Alcohol-induced mood disorder 04/23/2020 Charcot ankle, right 07/09/2019 Non-healing ulcer of [...] Encounters Date Type Specialty Care Team Description 08/31/2020 Lab Lab Celina Xie MD 08/14/2020 Lab Lab Celina Xie MD 08/04/2020 Office Visit Hematology Marielos Childress, Lupus antico agulant positive (Primary Dx); Anemia of chron ic renal failure, stage 5 (HCC) 08/04/2020 Travel 07/13/2020 Lab Lab Celina Xie MD 07/08/2020 Lab Lab Marielos Childress, Lupus antico agulant positive 07/08/2020 Office Visit Hematology Marielos Childress, Lupus antico agulant positive (Prima ry Dx) 07/08/2020 Travel 06/12/2020 Travel 06/11/2020 Documentation Transplant Sylvie Ambrocio RN 06/02/2020 Lab Lab Celina Xie MD 06/02/2020 Documentation Transplant Sylvie Ambrocio, JAYDE 05/27/2020 Lab Transplant Celina Xie ESRD (end stage MD Aamir renal disease) ([facility]) 05/27/2020 Travel 05/26/2020 Orders Only Transplant Ambrocio, ESRD (end stage JAYDE Mercer renal disease) ([facility]) (Primary Dx) 05/18/2020 Documentation Transplant Tate, Kidney Eval (P RA Ban Kits ) 05/14/2020 Documentation Transplant Tatum May 05/14/2020 Documentation Medical Records Provider, Unknown 05/14/2020 Travel 05/13/2020 Documentation Transplant Tatum May 04/23/2020 Hospital Encounter Pulmonology Celina Xie ESRD (end stage MD Aamir renal disease) ([facility]) 04/23/2020 Office Visit Transplant Celina Xie SABAS (obstructiv e sleep apnea) (Primary Dx); MD Aamir Alcohol use disorder, severe, dependence ([facility]); Aidee Daniels, Alcohol-ind uced mood disorder ([facility]) 04/23/2020 Travel 04/16/2020 Documentation Transplant Tatum May Kidney Follo w-up (04/16/20 BCBS PPO & MCR ABD was david ified as active & kumar efits updated. MEDICA RE COB PERIOD 10/12 ENDS 04/24/20.) 03/31/2020 Orders Only Transplant Ambrocio, ESRD (end stage Sylvie, yard pipe grader disease) ([facility]) (Primary Dx) 03/30/2020 Telephone Transplant Juju Pittman Appointment (08:19am [facility] Left my direct numbe r to return my call. ) 03/30/2020 Orders Only Transplant Ambrocio, ESRD (end stage JAYDE Mercer renal disease) ([facility]) (Primary Dx) 03/26/2020 Hospital Encounter Pulmonology Trino Lackey ESRD (en d stage MD David renal disease) ([facility]) 03/26/2020 Hospital Encounter Radiology Trino Lackey ESRD (en d stage MD David renal disease) ([facility]) 03/26/2020 Office Visit Transplant Rolf Thayer Pre-transpla nt MD Chato evaluation for Navya Smith MD kidney trans plant (Primary Dx) 03/26/2020 Social Work Transplant Celina Xie MD 03/26/2020 Telephone Transplant Kathleen Muse, Speak with co ord MA 03/26/2020 Travel 03/19/2020 Orders Only Transplant Lolly, ESRD (end stage Sylvie, yard pipe grader disease) ([facility]) (Primary Dx) 03/17/2020 Documentation Transplant Juju Pittman Itinerary ( Itinerary emailed/mailed today and scanned in media. ) 01/15/2020 Abstract Transplant Andreina Whyte RN 01/01/2020 Documentation Transplant Juju Pittman Appointment (14:15pm sp w/pt re: allison t on 03/26/2020 & pt confirmed. ) 12/24/2019 Telephone Transplant Juju Pittman Appointment (14:57pm Called pt to [facility] the rest of his appts on 2019 due to COVID-19 . Told pt appts w ill be r/s after 2019. ) 12/23/2019 Telephone Transplant Juju Pittman Appointment (12:10pm Pt called re: a ppt on 12/26/2019. Told him I will have to cancel appt for SW/Nephrology o n 12/26/2019 due to COVID-19.) 12/06/2019 Documentation Transplant Juju Pittman Itinerary ( Itinerary emailed/mailed and scanned in medi a. ) 11/25/2019 Telephone Transplant Juju Pittman Appointment (10:04am Sp w/pt re: allison t scheduled on 12/26/19. Pt confirmed appts and will email/mail itinerary next week. ) 11/25/2019 Telephone Transplant Juju Pittman Appointment (09:33am left deed to return my call to schedule follow up appointments. ) 11/18/2019 Documentation Transplant Juju Pittman Kidney Eval (Cardio clearance 11/12 & cardio consult 10/17/19 scanomero lin in media. ) 11/12/2019 Orders Only Transplant Lolly ESRD (end stage Sylvie, yard pipe grader disease) ([facility]) 11/05/2019 Hospital Encounter Procedural Celina Xie ESRD (end stage Cardiology MD Aamir renal disease) ([facility]) 10/29/2019 Documentation Transplant Juju Pittman Itinerary ( Itinerary for echo emaile d and scanned in medi a. ) 10/28/2019 Telephone Transplant Zain Juju Echo appoint ment (14:13pm Called pt letting him tomy w Dr. Uriostegui wants me to schedule an ech o. Pt requested 11/05 to do echo. Pt schedule on 08/14 @10am. Pt confi rmed. Emailing gumaro boyer this week to pt . ) 10/18/2019 Orders Only Transplant Lolly ESRD (end stage JAYDE Mercer renal disease) ([facility]) (Primary Dx) 10/08/2019 Abstract Transplant Sylvie Ambrocio RN 10/04/2019 Telephone Transplant Womandy, Waitlist Status Sandra, SUSHANT Update after 09/20/2019 Immunizations Name Administration Dates Next Due FLUCELVAX QUAD PF 08/09/2018 Surgical History Surgery Date Site/Laterality Comments GALLBLADDER SURGERY TOE AMPUTATION INSERTION, CATHETER, CENTRAL VENOUS, TUNNELED, FOR HEMODIALYSIS INSERTION, CATHETER, 11/07/2017 Abdomen/N/A Procedure: LAPAROSCOPIC DIALYSIS, PERITONEAL, PERITONEAL DIALYSIS LAPAROSCOPIC CATHETER PLACEME NT; Surgeon: Julio Roman MD; Location: [facility] Main OR; S ervice: General; Latera lity: N/A; Medical devices from this surgery are in t he Implants section . RENAL BIOPSY 09/25/2016 - 09/24/2017 INTUBATION 07/27/2018 INSERTION, CATHETER, 07/26/2018 Abdomen/N/A Procedure: LAPAROSCOPIC INTRAPERITONEAL, PERITONEAL CATH ETER LAPAROSCOPIC REPOSITIONING; Surgeon: Julio mcintyre MD; Location: [facility] Main OR; Service: General ; Laterality: N/A; CARDIAC CATHETERIZATION 08/01/2018 Radial Procedur e: Cv left heart cath w lv gram c ors; Surgeon: Adonay Leal MD; [facility]: [facility] Register Clerk Invasive Loc ation; Service: Cardiol ogy; Laterality: Radi al; Medical devices from this surgery are in t he Implants section . CARDIAC CATHETERIZATION 08/01/2018 N/A Procedur e: Cv intracoronary st ent placement w armani oplasty single major art lesia or branch; Surgeon : Adonay Leal MD; Loca tion: [facility] Register Clerk In vasive Location; Servi ce: Cardiology; Lat erality: N/A; Medical devices from this surgery are in t he Implants section . REMOVAL, CATHETER, DIALYSIS, 07/31/2018 Abdomen/N/A Pro cedure: OPEN REMOVAL PERITONEAL OF PERITONEAL CA THETER; Surgeon: Julio Roman MD; Location: [facility] Main OR; S ervice: General; Latera lity: N/A; CARDIAC CATHETERIZATION 11/02/2018 N/A Procedur e: CV LEFT HEART CATH LV GRAM WIT H CORS; Surgeon: Jossue Doe MD; Locatio n: [facility] Register Clerk Invasiv e Location; Servi ce: Cardiology; Lat erality: N/A; Medical devices from this surgery are in t he Implants section . CARDIAC CATHETERIZATION 11/02/2018 N/A Procedur e: Selective coronary angiogr aphy; Surgeon: Jossue Doe MD; Locatio n: [facility] Register Clerk Invasiv e Location; Servi ce: Cardiology; Lat erality: N/A; Medical devices from this surgery are in t he Implants section . CARDIAC CATHETERIZATION 11/02/2018 N/A Procedur e: Cv percutaneous cor onary intervention; S urgeon: Jossue Doe MD; Location: [facility] Register Clerk Invasive Locatio n; Service: Cardiol ogy; Laterality: N/A; Medical devices from this surgery are in t he Implants section . CARDIAC CATHETERIZATION 11/02/2018 N/A Procedur e: OCT; Surgeon: Jossue Doe MD; Location: [facility] Register Clerk Invasive Locatio n; Service: Cardiol ogy; Laterality: N/A; Medical devices from this surgery are in t he Implants section . IR RIGHT LOWER EXTREMITY 06/13/2019 Right RIGHT L OWER EXTREMITY ARTERIOGRAM WITH BALLOON ANGIOGR AM WITH BALLOON DILATATION ANGIOPLASTY ARTERIOGRAM WITH 06/13/2019 Leg Lower/Right Procedure: RIGH T LOWER ANGIOPLASTY, IF INDICATED EXTREM ITY ANGIOGRAM WITH BALLOON ANGIOPL ASTY.; Surgeon: Rebecca Cody MD; Location: [facility] Main OR; Service: [facility]; Laterality: Righ t; Medical History Medical History Date Comments Chronic kidney disease Diabetes mellitus (HCC) 1998 History of blood transfusion in July. Wears glasses Never exercises Immunizations up to date ESRD (end stage renal disease) on dialysis (HCC) Hypertension 1998 Anemia Peripheral vascular disease (HCC) Mood disorder due to a general medical condition 10/25/2018 Diabetes mellitus type I (HCC) Alcohol use disorder, severe, dependence (HCC) 04/23/2020 Alcohol-induced mood disorder (HCC) 04/23/2020 Family History Medical History Relation Name Comments [...] file Not on file Not on file Last Filed Vital Signs Vital Sign Reading Time Taken Comments Blood Pressure 197/79 08/04/2020 2:39 PM TAR PROCESSING TECHNICIAN Pulse 78 08/04/2020 2:39 PM TAR PROCESSING TECHNICIAN Temperature 36.7 C (98 F) 04/23/2020 8:54 AM CDT Respiratory Rate 17 03/26/2020 7:46 AM CDT Oxygen Saturation 91% 08/04/2020 2:39 PM TAR PROCESSING TECHNICIAN Inhaled Oxygen Concentration - - Weight 87.5 kg (193 lb) 08/04/2020 2:39 PM TAR PROCESSING TECHNICIAN Height 175.3 cm (5' 9") 08/04/2020 2:39 PM TAR PROCESSING TECHNICIAN Body Mass Index 28.5 08/04/2020 2:39 PM TAR PROCESSING TECHNICIAN Plan of Treatment Health Maintenance Due Date Last Done Comments DIABETES: RETINAL EYE EXAM 1969 COVID-19 VACCINE (#1) 1975 COLONOSCOPY SCREENING 2009 SHINGLES VACCINES (#1) 2009 INFLUENZA VACCINE 04/25/2020 08/09/2018, 08/18/2017 DIABETIC FOOT EXAM 06/06/2020 06/06/2019 Implants Implanted Type Area Osteopathic Medicine Teacher Device Shelf Model / Identifier Expiration Serial / Date Lot Catheter Dialysis Glidepath [id number] Symmetric Tip - [id number] Central N/A: BARD PERIPHERAL [id number] / Implanted: 09/17/2018 at [facility] (Quantity not on file) Ve nous N/A VASCULAR / Catheters Stent Coronary Syst Synergy (Mr) 3.00mm X 12mm - [id number] Coronary N/A: BSC 04/03/2020 [id number] / Implanted: Qty: 1 on 08/01/2018 by Adonay Leal MD at [facility] Stents N/A INTERVENTIONAL / CARDIOLOGY [id number] Description:2300 Gauss Xience Radha Everolimus Eluting Coronar y Stent System 3.00 Mm X 15 Mm / Rapid- Exchange - [id number] STENTS [id number] 15 / Implanted: Qty: 1 on 11/02/2018 by Jossue Doe MD at [facility] / Description:3000 Gauss Xience Radha Everolimus Eluting Coronar y Stent System 2.75 Mm X 15 Mm / Rapid- Exchange - [id number] IPM STENTS [id number] 15 / Implanted: Qty: 1 on 11/02/2018 by Jossue Doe MD at [facility] / Description:3000 Gauss Manoj Stylet Stylet / N/A: N/A MEDIONICS 07/24/2021 [id number] 1 / Implanted: Qty: 1 on 11/07/2017 by Julio Roman MD at [facility] [employer] [id number] / [id number] Catheter 19.5cm Peritoneal Dialysis Extended - [id number] Surgical N/A: N/A 08/24/2022 [id number] / Implanted: 11/07/2017 at [facility] (Quantity not on file) Implants ; / Expanders; [id number] Extenders; Surgical Wires Procedures Procedure Name Priority Date/Time Associated Diagnosis Comme nts SINGLE ANTIGEN BEADS Routine 08/26/2020 12:48 Res ults for this PM TAR PROCESSING TECHNICIAN procedure are i n the results section. DRVVC, DRVVT/DRVVC Routine 07/08/2020 2:11 Resul ts for this PM CDT procedure are i n the results section. HEXAGONAL PHOSPHOLIPID Routine 07/08/2020 2:11 R esults for this PM CDT procedure are i n the results section. BETA-2 GLYCOPROTEIN 1 Routine 07/08/2020 2:11 Lupus anticoagu lant Results for this ANTIBODY, IGG AND IGM PM CDT positive proced ure are in the results section. CARDIOLIPIN ANTIBODIES Routine 07/08/2020 2:11 Lupus anticoag ulant Results for this PM CDT positive procedure are i n the results section. LUPUS ANTICOAGULANT Routine 07/08/2020 2:11 Lupus anticoagula nt Results for this PANEL PM CDT positive procedure are i n the results section. DRVVC, DRVVT/DRVVC Routine 05/27/2020 1:13 Resul ts for this PM CDT procedure are i n the results section. HEXAGONAL PHOSPHOLIPID Routine 05/27/2020 1:13 R esults for this PM CDT procedure are i n the results section. LUPUS ANTICOAGULANT Routine 05/27/2020 1:13 ESRD (end stage R esults for this PANEL PM CDT renal disease) ([facility]) procedu re are in the results section. SINGLE ANTIGEN BEADS Routine 05/27/2020 8:19 Res ults for this AM CDT procedure are i n the results section. THYROID STIMULATING Routine 05/14/2020 1:20 ESRD (end stage R esults for this HORMONE PM CDT renal disease) ([facility]) procedu re are in the results section. PARTIAL THROMBOPLASTIN Routine 05/14/2020 1:20 ESRD (end stag e Results for this TIME (PTT) PM CDT renal disease) ([facility]) procedu re are in the results section. PROTHROMBIN TIME WITH Routine 05/14/2020 1:20 ESRD (end stage Results for this INR PM CDT renal disease) ([facility]) procedu re are in the results section. SIX MINUTE WALK W/ Routine 04/23/2020 12:51 ESRD (end stage Re sults for this PULSE OXIMETRY PM CDT renal disease) ([facility]) proce dure are in the results section. CT ANGIOGRAM ABDOMEN Routine 03/26/2020 1:30 ESRD (end stage Results for this PELVIS W AND OR WO PM CDT renal disease) ([facility]) p rocedure are in CONTRAST the results section. SAB CLASS 1 & 2 WITH Routine 03/26/2020 7:36 Res ults for this DILUTIONS AM CDT procedure are i n the results section. MISCELLANEOUS REFERRAL Routine 03/26/2020 7:36 R esults for this TEST AM CDT procedure are i n the results section. ESTIMATED GFR Routine 03/26/2020 7:36 Results fo r this AM CDT procedure are i n the results section. C-PEPTIDE Routine 03/26/2020 7:36 ESRD (end stage Results for this AM CDT renal disease) ([facility]) procedu re are in the results section. PROSTATE SPECIFIC Routine 03/26/2020 7:36 ESRD (end stage Res ults for this ANTIGEN AM CDT renal disease) ([facility]) procedu re are in the results section. SERUM ELECTROPHORESIS Routine 03/26/2020 7:36 ESRD (end stage Results for this AM CDT renal disease) ([facility]) procedu re are in the results section. PARATHYROID HORMONE Routine 03/26/2020 7:36 ESRD (end stage R esults for this AM CDT renal disease) ([facility]) procedu re are in the results section. HSV TYPE 1/2 COMBINED Routine 03/26/2020 7:36 ESRD (end stage Results for this AB, IGM AM CDT renal disease) ([facility]) procedu re are in the results section. HSV 1 & 2 GLYCOPROTEIN Routine 03/26/2020 7:36 ESRD (end stag e Results for this G AB, IGG AM CDT renal disease) ([facility]) procedu re are in the results section. KARENA-ORTIZ VIRUS Routine 03/26/2020 7:36 ESRD (end stage Re sults for this ANTIBODY TEST AM CDT renal disease) ([facility]) proced ure are in the results section. CYTOMEGALOVIRUS AB, IGM Routine 03/26/2020 7:36 ESRD (end sta ge Results for this AM CDT renal disease) ([facility]) procedu re are in the results section. CYTOMEGALOVIRUS AB, IGG Routine 03/26/2020 7:36 ESRD (end sta ge Results for this AM CDT renal disease) ([facility]) procedu re are in the results section. HEMOGLOBIN A1C Routine 03/26/2020 7:36 ESRD (end stage Result s for this AM CDT renal disease) ([facility]) procedu re are in the results section. LDH Routine 03/26/2020 7:36 ESRD (end stage Results for this AM CDT renal disease) (HCC) procedu re are in the results section. PHOSPHORUS LEVEL Routine 03/26/2020 7:36 ESRD (end stage Resu lts for this AM CDT renal disease) (HCC) procedu re are in the results section. FASTING GLUCOSE LEVEL Routine 03/26/2020 7:36 ESRD (end stage Results for this AM CDT renal disease) (HCC) procedu re are in the results section. LIPID PANEL Routine 03/26/2020 7:36 ESRD (end stage Results for this AM CDT renal disease) (HCC) procedu re are in the results section. NICOTINE AND COTININE, Routine 03/26/2020 7:36 ESRD (end stag e Results for this SERUM AM CDT renal disease) (HCC) procedu re are in the results section. DRUG ALVAREZ 9, SER/MOOKIE, Routine 03/26/2020 7:36 ESRD (end stage Results for this SCRN W/RFLX TO CONF AM CDT renal disease) (HCC) procedure are in the results section. PARTIAL THROMBOPLASTIN Routine 03/26/2020 7:36 ESRD (end stag e Results for this TIME (PTT) AM CDT renal disease) (HCC) procedu re are in the results section. PROTHROMBIN TIME WITH Routine 03/26/2020 7:36 ESRD (end stage Results for this INR AM CDT renal disease) (HCC) procedu re are in the results section. HC COMPLETE BLD COUNT Routine 03/26/2020 7:36 ESRD (end stage Results for this W/AUTO DIFF AM CDT renal disease) (HCC) procedu re are in the results section. SYPHILIS TOTAL ANTIBODY Routine 03/26/2020 7:36 ESRD (end sta ge Results for this AM CDT renal disease) (HCC) procedu re are in the results section. HEPATITIS C ANTIBODY Routine 03/26/2020 7:36 ESRD (end stage Results for this AM CDT renal disease) (HCC) procedu re are in the results section. HEPATITIS B SURFACE AB, Routine 03/26/2020 7:36 ESRD (end sta ge Results for this QUANTITATIVE AM CDT renal disease) (HCC) procedu re are in the results section. HEPATITIS B SURFACE Routine 03/26/2020 7:36 ESRD (end stage R esults for this ANTIGEN AM CDT renal disease) (HCC) procedu re are in the results section. HEPATITIS B SURFACE Routine 03/26/2020 7:36 ESRD (end stage R esults for this ANTIBODY AM CDT renal disease) (HCC) procedu re are in the results section. HEPATITIS B CORE Routine 03/26/2020 7:36 ESRD (end stage Resu lts for this ANTIBODY TOTAL AM CDT renal disease) (HCC) proce dure are in the results section. HEPATITIS A ANTIBODY Routine 03/26/2020 7:36 ESRD (end stage Results for this TOTAL AM CDT renal disease) (HCC) procedu re are in the results section. HIV AG/AB COMBINATION Routine 03/26/2020 7:36 ESRD (end stage Results for this AM CDT renal disease) (HCC) procedu re are in the results section. URINALYSIS SCREEN AND Routine 03/26/2020 7:36 ESRD (end stage Results for this MICROSCOPY, WITH REFLEX AM CDT renal disease) ([facility]) procedure are in TO CULTURE the results section. COMPREHENSIVE METABOLIC Routine 03/26/2020 7:36 ESRD (end sta ge Results for this PANEL AM CDT renal disease) (HCC) procedu re are in the results section. URINE CULTURE Routine 03/26/2020 7:36 Results fo r this AM CDT procedure are i n the results section. TTE COMPLETE, WO Routine 11/05/2019 11:36 ESRD (end stage Resu lts for this CONTRAST, W DOPPLER AM TAR PROCESSING TECHNICIAN renal disease) (HCC) procedure are in (97200) the results section. after 09/20/2019 Results Single antigen beads (08/26/2020 12:48 PM TAR PROCESSING TECHNICIAN)Only the most recent of2 results within the time period is included. SAB serum ID [id number] [facility] SAB serum collection 08/26/2020 12:48 [facility] T D&T PM HOSPITAL SAB class I antibody Negative [facility] SAB cPRA class I [address] [facility] SAB class II Negative [facility] antibody [facility] SAB cPRA class II [address] [facility] Single antigen beads See link below [facility] for PDF Lab HOSPITAL Report Specimen Blood Performing Organization Address City/State/ZIP Code Phon e Number [facility] DEPARTMENT OF PATHOLOGY AND [address] [place], [place] [address] [facility] [address] [place] [address] [facility] Hexagonal phospholipid (07/08/2020 2:11 PM CDT)Only the most recent of2 results within the time period is included. Hexagonal phospholipid 65.3 sec [facility] tube #1 [facility] Hexagonal phospholipid 48.6 sec [facility] tube #2 HOSPITAL Tube 1 - 2 16.7 (H) 0.0 - 11.[address] [facility] [place] interpretation Positive [facility] Specimen Blood Performing Organization Address [facility] Phon e Number [facility] DEPARTMENT OF PATHOLOGY AND [address] [place] [address] [phone] [address] DRVVC, DRVVT/DRVVC (07/08/2020 2:11 PM CDT)Only the most recent of2 results within the time period is included. DRVVT 48.8 (H) 29.0 - 46.0 GORDO Comment: sec MOSQUE This test has been modified from the [facility] instructions. The performance characteristics were determined by [facility] in a manner consistent with CLIA requirements. This test has not been cleared or approved by the U.S. Food and Drug Administration. DRVVC 33.0 sec GORDO Comment: MOSQUE This test has been modified from the [facility] instructions. The performance characteristics were determined by [facility] in a manner consistent with CLIA requirements. This test has not been cleared or approved by the U.S. Food and Drug Administration. DRVVT/DRVVC ratio 1.48 (H) 0.00 - 1.22 [facility] Specimen Blood Performing Organization Address [facility] [facility] Phon e Number [facility] DEPARTMENT OF PATHOLOGY AND [address] [place] [address] [phone] [address] Beta-2 glycoprotein 1 antibody, IgG and IgM (07/08/2020 2:11 PM CDT) Beta-2 glycoprotein 1 <9.4 0.0 - 20.0 [facility] antibody, IgG Comment: HOSPITAL Negative =<20.0 [facility] Positive >20.0 [facility] Beta-2 glycoprotein 1 <9.4 0.0 - 20.0 [facility] antibody, IgM Comment: HOSPITAL Negative =<20.0 [facility] Positive >20.0 [facility] Specimen Blood Performing Organization Address [facility] Phon e Number [facility] DEPARTMENT OF PATHOLOGY AND [address] [place], [place] [address] [address] Lupus anticoagulant panel (07/08/2020 2:11 PM CDT)Only the most recent of2 resultswithin the time period is included. Prothrombin time 13.2 11.5 - 14.5 [facility] INR 1.0 [place] Comment: [place] The International Normalized Ratio (INR) is a [facility] HOSPITAL monitoring tool for patients who are stable on oral anticoagulant therapy. An INR of 2.0-3.0 is suggested for deep vein thrombosis/pulmonary embolism. PTT 35.0 23.0 - 36.0 [place] Comment: [facility] PTT therapeutic range for unfractionated heparin is HOSPITAL 61.0-112.0 seconds which corresponds to Anti-Xa 0.3-0.7 U/ml. PTT lupus 40.5 (H) 27.0 - 38.0 [place] anticoagulant Comment: [facility] Lupus anticoagulant (LA) panel consists of PT, PTT, PT T-LA, HOSPITAL and DRVVT. If the PTT-LA is above the normal range, th e hexagonal phospholipid will be performed. If the DRVVT is above the normal range, the DRVVC confirmatory test will be performed. A normal result for both the DRVVT and the PTT-LA mean s the patient is negative for lupus anticoagulant. The patie nt is considered positive for lupus anticoagulant if either the Ratio SCR/CONF or the hexagonal phospholipid is high (positi ve) on two occassions at least six weeks apart. Clinical confirmation is also required for diagnosis. DRVVT 48.8 (H) 29.0 - 46.0 [place] Comment: [facility] This test has been modified from the [facility] HOSPITAL instructions. The performance characteristics were determined by [facility] in a manner consistent with CLIA requirements. This test has not been cleared or approved by the U.S. Food and Drug Administration. Specimen Blood Performing Organization Address City/[facility] Phon e Number [facility] DEPARTMENT OF PATHOLOGY AND [address] [place], [place] [address] [address] Cardiolipin antibodies (07/08/2020 2:11 PM CDT) Cardiolipin IgG 7 0 - 14 GPL [facility] Comment: HOSPITAL Negative <15 GPL Indeterminate 15-20 GPL Positive >20 GPL Cardiolipin IgM 16 (H) 0 - 12 MPL [facility] Comment: HOSPITAL Negative <13 MPL Indeterminate 13-20 MPL Positive >20 MPL Specimen Blood Performing Organization Address [facility] Phon e Number [facility] DEPARTMENT OF PATHOLOGY AND [address] [place] [address] [address] Partial thromboplastin time, activated (05/14/2020 1:20 PM CDT)Only the most recent of2 resultswithin the time period is included. Pathologist [facility] PTT 37.3 (H) 23.0 - 36.0 [facility] Comment: [facility] PTT therapeutic range for unfractionated heparin is 61.0-112.0 seconds which corresponds to Anti-Xa 0.3-0.7 U/ml. Specimen Blood Performing Organization Address [facility] Phon e Number [facility] DEPARTMENT OF PATHOLOGY AND [address] [place] [address] [address] Prothrombin time with INR (05/14/2020 1:20 PM CDT)Only the most recent of2 resultswithin the time period is included. Pathologist [facility] Prothrombin time 13.4 11.5 - 14.5 [facility] INR 1.0 [place] Comment: [place] The International Normalized Ratio (INR) is a [facility] center HOSPITAL monitoring tool for patients who are stable on oral anticoagulant therapy. An INR of 2.0-3.0 is suggested for deep vein thrombosis/pulmonary embolism. Specimen Blood Performing Organization Address [facility] Phon e Number [facility] DEPARTMENT OF PATHOLOGY AND [address] [place] [address] [address] Thyroid stimulating hormone (05/14/2020 1:20 PM CDT) Pathologist [facility] nature TSH 1.55 0.27 - 4.20 uIU/mL [facility] ITAL Specimen Blood Performing Organization Address City/[facility] Phon e Number [facility] DEPARTMENT OF PATHOLOGY AND [address] [place], [place] [address] [facility] [address] [place] [address] Six minute walk w/ pulse oximetry (04/23/2020 12:51 PM CDT) Pathologist Sig nature Heart Rate at Rest 59.00 1/min [facility] SPO2 at Rest 96.00 % [facility] BP Systolic at Rest 180.00 mmHg [facility] BP Diastolic at Rest 77.00 mmHg [facility] Supplemental O2 at Rest 0.00 L/min [facility] Heart Rate after 1 minute 63.00 1/min [facility] SPO2 after 1 minute 95.00 % [facility] Supplemental O2 after 1 0.00 L/min [facility] minute Heart Rate after 2 71.00 1/min [facility] minutes SPO2 after 2 minutes 94.00 % [facility] Supplemental O2 after 2 0.00 L/min [facility] minutes Heart Rate after 3 75.00 1/min [facility] minutes SPO2 after 3 minutes 93.00 % [facility] Supplemental O2 after 3 0.00 L/min [facility] minutes Heart Rate after 4 81.00 1/min [facility] minutes SPO2 after 4 minutes 93.00 % [facility] Supplemental O2 after 4 0.00 L/min [facility] minutes Heart Rate after 5 85.00 1/min [facility] minutes SPO2 after 5 minutes 92.00 % [facility] Supplemental O2 after 5 0.00 L/min [facility] minutes Six Minute Walk Distance 380.00 405.45 - 711.45 m [facility] ON in m Heart Rate after 6 87.00 1/min [facility] minutes Highest Heart Rate 87.00 1/min [facility] SPO2 after 6 minutes 93.00 % [facility] Lowest SpO2 92.00 % [facility] BP Systolic after 6 204.00 mmHg [facility] minutes BP Diastolic after 6 85.00 mmHg [facility] minutes Supplemental O2 after 6 0.00 L/min [facility] minutes Lap Count 9.00 [facility] Six Minute Walk Distance 558 [facility] Predicted Specimen Narrative Performed At This result has an attachment that is no t available. Performing Organization Address [facility]/ZIP Code Phon e Number [facility] [address] [place] [address] CTA Abdomen Pelvis W And Or Wo Contrast (03/26/2020 1:30 PM CDT) Specimen Narrative Performed At EXAMINATION: CT ANGIOGRAM ABDOMEN PELV IS W AND OR WO CONTRAST [facility] CLINICAL HISTORY: N18.6 End stage renal disease, Miguel al Transplant Evaluation TECHNIQUE: Multiple CT angiographic images of the abdo men and pelvis were obtained during intravenous administration of con trast. Multiple computerized reformatted images as well as 3-D volume rendered images were also obtained. CT imaging was perfo rmed with iterative reconstruction techniques and/or automa parveen exposure control to reduce radiation dose. COMPARISON: None. FINDINGS: The abdominal aorta is of normal course and caliber th roughout its length, with only trace infrarenal aortic nonflow limi ting atherosclerosis/arteriosclerosis. [employer] aortic diameters: Diaphragmatic hiatus: 2.3 cm Level of renal arteries: 1.9 cm Distal infrarenal segment: 1.6 cm Celiac, SMA and LULY are patent without stenosis. Nativ e renal arteries are unremarkable. Iliac arteries: Right common iliac: Mild medial wall calcification wit hout stenosis. Diameter 1.2 cm Left common iliac: Normal. Diameter 1.1 cm Right external iliac: Normal Diameter 0.8 cm Left external iliac: Normal. Diameter 0. 8 cm Moderate atherosclerosis and arteriosclerosis of both internal iliac arteries and associated divisions. Common femoral and superficial femoral artery segments are patent. There is arteriosc lerosis predominant in the muscular branches of the profunda femoris and SFA. Systemic veins are grossly unremarkable. Other findings: Minimal basilar dependent atelectasis. Lung bases othe rwise clear. Cardiomegaly without pericardial effusio n. Liver: Normal Gallbladder: Cholecystectomy Pancreas: Mild fatty infiltration; other aguayo, normal. Spleen: Normal Adrenal glands: Normal Kidneys: Bilateral cortical atrophy. Oth erwise, normal Ureters and urinary bladder: Normal. The urinary bladd er is mostly decompressed. Prostate and seminal vesicles: There is arterioscleros is of the penile arteries calcification of the seminal ve sicles. Bowel: Normal caliber Peritoneum: Normal Lymph nodes: There is a minimally prominent bilateral inguinal and right external iliac chain nodes which are likely reactive. Right external iliac chain (image 151, series 2) measures up to 1.2 c m short axis, and has a well appearing fatty hilum. No additional suspicious lymphadenopathy. Skeleton: Intact. Multilevel degenerative disc disease . L2 superior endplate insufficiency fracture, chronic in appearance . Multilevel facet arthropathy. Soft tissues: Nonspecific soft tissue thickening at th e umbilicus of indeterminate clinical significance. Oth erwise, normal. IMPRESSION: Mild mdo-ceco-dtshggdi atherosclerosis and arterioscle rosis of the aorta and iliac arteries as described. [facility]-[id number] Procedure Note Hm Interface, Radiology Results Incoming - 03/26/2020 2:08 PM CDT EXAMINATION: CT ANGIOGRAM ABDOMEN PELVIS W AND OR WO CONTRAST CLINICAL HISTORY: N18.6 End stage renal disease, Renal Transplant Evaluation TECHNIQUE: Multiple CT angiographic imag es of the abdomen and pelvis were obtained during intravenous administration of contrast. Multiple computerized reformatted images as well as 3-D volume rendered images were also obtained. CT imaging was performed with iterative reconstruction techniques and/or automated exposure control to reduce radiation dose. COMPARISON: None. FINDINGS: The abdominal aorta is of normal course and caliber throughout its length, with only trace infrarenal aortic nonflow limiting atherosclerosis/arteriosclerosis. [employer] aortic diameters: Diaphragmatic hiatus: 2.3 cm Level of renal arteries: 1.9 cm Distal infrarenal segment: 1.6 cm Celiac, SMA and LULY are patent without s tenosis. [place] renal arteries are unremarkable. Iliac arteries: Right common iliac: Mild medial wall abimael cification without stenosis. Diameter 1.2 cm Left common iliac: Normal. Diameter 1.1 cm Right external iliac: Normal Diameter 0.8 cm Left external iliac: Normal. Diameter 0. 8 cm Moderate atherosclerosis and arterioscle rosis of both internal iliac arteries and associated divisions. Common femoral and superficial femoral artery segments are patent. There is arteriosclerosis predominant in the muscular branches of the profunda femoris and SFA. Systemic veins are grossly unremarkable. Other findings: Minimal basilar dependent atelectasis. L clovis bases otherwise clear. Cardiomegaly without pericardial effusion. Liver: Normal Gallbladder: Cholecystectomy Pancreas: Mild fatty infiltration; other aguyao, normal. Spleen: Normal Adrenal glands: Normal Kidneys: Bilateral cortical atrophy. Oth erwise, normal Ureters and urinary bladder: Normal. The urinary bladder is mostly decompressed. Prostate and seminal vesicles: There is arteriosclerosis of the penile arteries calcification of the seminal vesicles. Bowel: Normal caliber Peritoneum: Normal Lymph nodes: There is a minimally promin ent bilateral inguinal and right external iliac chain nodes which are likely reactive. Right external iliac chain (image 151, series 2) measures up to 1.2 cm short axis, and has a well appearing fatty hilum. No additional suspicious lymphadenopathy. Skeleton: Intact. Multilevel degenerativ e disc disease. L2 superior endplate insufficiency fracture, chronic in appearance. Multilevel facet arthropathy. Soft tissues: Nonspecific soft tissue th ickening at the umbilicus of indeterminate clinical significance. Otherwise, normal. IMPRESSION: Mild zpy-udkt-hrsdsmtx atherosclerosis a nd arteriosclerosis of the aorta and iliac arteries as described. [facility]-[id number] Performing Organization Address City/[facility]/ZIP Code Phon e Number [facility] [address] [place] [address] Nicotine and cotinine, serum (03/26/2020 7:36 AM CDT) Nicotine <2.0 0.0 - 1.9 [facility] ng/mL HOSPITAL Cotinine 32.9 (H) 0.0 - 1.9 [facility] Comment: ng/mL HOSPITAL This test was developed and its performance characteri stics determined by the Department of Pathology and Genomic Medicine, [facility]. Serum nicotine and metabolite cotinine are t ested by HPLC tandem mass spectrometry. It has not been cleared or approved by FDA. The laboratory is regulated under CLIA as qualified to per form high-complexity testing. This test is used for clinical purposes. It s hould not be regarded as investigational or for research. Specimen Blood Performing Organization Address City/[facility] Phon e Number [facility] DEPARTMENT OF PATHOLOGY AND [address] [place] [address] [phone] [address] SAB class 1 & 2 with dilutions (03/26/2020 7:36 AM CDT) Pathologist Sig nature [facility] SAB class 1 & 2 See link below [facility] with dilutions for PDF Lab HOSPITAL Report Specimen Blood Performing Organization Address City/[facility]/ZIP [facility] Phon e Number [facility] DEPARTMENT OF PATHOLOGY AND [address] [place] [address] 0 [facility] Urinalysis screen and microscopy, with reflex to culture (03/26/2020 7:36 AM CDT) Pathologist Sig nature Specimen site Clean catch [facility] Color, UA Straw [facility] Appearance, UA Clear [facility] Specific gravity, 1.007 1.001 - 1.035 [facility] pH, UA 8.0 5.0 - 8.5 [facility] Protein, UA 3+ (A) Negative [facility] Glucose, UA 2+ (A) Negative [facility] Ketones, UA Negative Negative [facility] Bilirubin, UA Negative Negative [facility] Blood, UA Negative Negative [facility] Nitrite, UA Negative Negative [facility] Urobilinogen, UA <2.[address] [facility] Leukocyte esterase, Negative Negative [facility] WBC, UA 1 0 - 1 /HPF [facility] RBC, UA 1 0 - 5 /HPF [facility] Bacteria, UA Few None seen [facility] Yeast, UA None seen [facility] Yeast with None seen [facility] pseudohyphae, [facility] Sperm, UA Few (A) [facility] Specimen Urine Performing Organization Address City/[facility] Phon e Number [facility] DEPARTMENT OF PATHOLOGY AND [address] [place] [address] [address] [address] Estimated GFR (03/26/2020 7:36 AM CDT) Estimated GFR 8 (A) mL/min/1.73 [facility] Comment: m2 HOSPITAL Catergory Units Interpretation G1 >=90 Normal or high G2 60-89 [...] lity Initiative ([id number]) published in 2014. Specimen Performing Organization Address City/[facility]/ZIP [facility] Phon e Number [facility] DEPARTMENT OF PATHOLOGY AND [address] [place] [address] [address] [address] Syphilis total antibody (03/26/2020 7:36 AM CDT) Syphilis total Non-reactiveComment Non-reactive [facility] antibody : No serological HOSPITAL evidence of syphilis infection. Specimen Serum Performing Organization Address City/[facility]/ZIP [facility] Phon e Number [facility] DEPARTMENT OF PATHOLOGY AND [address] [place] [address] [address] [address] HSV 1 & 2 glycoprotein G Ab, IgG (03/26/2020 7:36 AM CDT) Pathologist [facility] HSV 1 glycoprotein G Positive (A) Negative [facility] [place] Ab, IgG Comment: HOSPITAL Positive results may indicate current or past HSV infe ction. For acute illness, viral PCR and IgM testing are recom mended. Individuals infected with HSV may not exhibit detectab le antibodies in cases of early infection. HSV 2 glycoprotein G Positive (A) Negative [facility] [place] Ab, IgG Comment: HOSPITAL Positive results may indicate current or past HSV infe ction. For acute illness, viral PCR and IgM testing are recom mended. Individuals infected with HSV may not exhibit detectab le antibodies in cases of early infection. Specimen Serum Performing Organization Address City/[facility] Phon e Number [facility] DEPARTMENT OF PATHOLOGY AND [address] [place] [address] [address] [address] Karena-Ortiz virus antibody test (03/26/2020 7:36 AM CDT) Pathologist [facility] EBV Ab to viral capsid Positive (A) Negative [facility] EBV Ab to viral capsid Negative Negative [facility] [place] Ag, IgM HOSPITAL EBV Ab to nuclear Ag, Positive (A) Negative [facility] IgG HOSPITAL EBV Ab to early (D) Negative Negative [facility] Ag, IgG [facility] Karena-Ortiz virus SEE [facility] antibody COMMENTComment: HOSPITAL interpretation Infection Status: Results may suggest past EBV infection. Specimen Serum Performing Organization Address City/[facility]/ZIP [facility] Phon e Number [facility] DEPARTMENT OF PATHOLOGY AND [address] [place] [address] [address] [address] HIV Ag/Ab combination (03/26/2020 7:36 AM CDT) Pathologist [facility] HIV Ag/Ab combination Non-reactive Non-reactive [facility] Specimen Blood Performing Organization Address City/[facility]/ZIP [facility] Phon e Number [facility] DEPARTMENT OF PATHOLOGY AND [address] [place] [address] [address] [address] Miscellaneous referral test (03/26/2020 7:36 AM CDT) [facility] test name HSV PCR SHOWN ABOVE [facility] test result see note SHOWN ABOVE Comment: Herpes Simplex Virus by PCR [facility] test code [id number] Herpes Simplex Virus Source Plasma - - - - - - - - - - - - - - - - - - - - - - - - - - - - - - Herpes Simplex Virus by PCR Not Detected NOT DETECTED - A negative result does not rule out the presence of PCR inhibitors in the patient specimen or assay specific nucleic acid in concentrations below the leve l of detection by the assay. INTERPRETIVE INFORMATION: Herpes Simplex Virus by PCR Test developed and characteristics determined by [employer]. See Compliance Statement B: [employer]/ CS ===== Test performed by: [facility] [address] [id number] Specimen Narrative Performed At 1.9HSVP - Herpes Simplex Virus (HSV) by [facility] DEPARTMENT OF PATHOLOGY AND GENOMIC PCR MEDICINE [facility] Test code: [id number] Source: Sanjana (EDTA) Performing Organization Address City/State/[facility] Code Phon e Number [facility] DEPARTMENT OF PATHOLOGY AND [address] [place], [place] [phone] 0 GENOMIC MEDICINE SHOWN ABOVE HSV type 1/2 combined Ab, IgM (03/26/2020 7:36 AM CDT) Pathologist [facility] HSV 1/2 combined 0.79 <=0.89 IV [facility] Ab, IgM Comment: INTERPRETIVE INFORMATION: Herpes Simplex Virus Type 1 and/or 2 Antibodies, IgM by OCT[place] 0.89 IV or Less .......... Not Detected 0.90 - 1.09 IV ........... Indeterminate- Repeat te sting in 10-14 days may be helpful. 1.10 IV or Greater ....... Detected-IgM antibody to HSV detected, w hich may indicate a current or recent infection. However, lo w levels of IgM antibodies may occasionally persist for more than 12 months post -infection. Performed by [facility], [address] [place] [id number] [email or web address], Cam Sauceda MD, Lab. Director Specimen Serum Performing Organization Address [facility] Phon e Number [facility] [address] [place] [address] [facility] [address] [place] [address] Hepatitis B surface Ab, quantitative (03/26/2020 7:36 AM CDT) Hepatitis B surface 39.91 IU/L [facility] Ab Comment: The anti-HBs is greater than or equal to 10 IU/L. This patient has either had an antibody response to HBV vaccination, re ceived a transfusion, or has recovered from HBV infection. This patient should be considered immune to hepatitis B. An anti-HBs result greater than or equal [...] and Tissue-Based Products (HCT/P) . Performed by [facility], [address] [place] [id number] [email or web address], Cam Sauceda MD, Lab. Director Specimen Serum Performing Organization Address [facility] Phon e Number [facility] [address] [place] [address] [facility] [address] [place] [address] Hepatitis C antibody (03/26/2020 7:36 AM CDT) Pathologist Sig nature Hepatitis C Ab Non-reactive Non-reactive [facility] Specimen Blood Performing Organization Address City/State/ZIP Code Phon e Number [facility] DEPARTMENT OF PATHOLOGY AND [address] [place] [address] 0 [place] [address] Cytomegalovirus Ab, IgM (03/26/2020 7:36 AM CDT) Pathologist Sig nature Cytomegalovirus Ab, IgM Negative Negative [facility] Specimen Serum Performing Organization Address City/[facility] Phon e Number [facility] DEPARTMENT OF PATHOLOGY AND [address] [place] [address] 0 [place] [address] Hepatitis A antibody total (03/26/2020 7:36 AM CDT) Pathologist Sig nature Hepatitis A total Non-reactive Non-reactive [facility] Specimen Blood Performing Organization Address [facility] Phon e Number [facility] DEPARTMENT OF PATHOLOGY AND [address] [place] [address] 0 [place] [address] Drug alvarez 9, ser/mookie, scrn w/rflx to conf (03/26/2020 7:36 AM CDT) Amphetamines, Negative Cutoff 30 HM [facility] s/p, screen ng/mL Methamphetamine, Negative Cutoff 30 [facility] s/p, screen ng/mL Barbiturates, Negative Cutoff 75 [facility] s/p, screen ng/mL Benzodiazepines, Negative Cutoff 75 [facility] s/p, screen ng/mL Cocaine, s/p, Negative Cutoff 30 [facility] screen ng/mL Methadone, s/p, Negative Cutoff 40 [facility] screen ng/mL Opiates, s/p, Negative Cutoff 30 [facility] screen ng/mL Oxycodone, s/p, Negative Cutoff 30 [facility] screen ng/mL Phencyclidine, Negative Cutoff 15 [facility] s/p, screen ng/mL Cannabinoids, Negative Cutoff 30 [facility] s/p, screen ng/mL Drug screen See Note [facility] comments, serum Comment: INTERPRETIVE INFORMATION: Drug Screen 9 Panel, Serum o r Plasma - Immuno assay Screen with Reflex to Mass Spectrometry Confirmation/Qu antitation 1. Methodology: Qualitative Immunoassay Screen 2. Drugs/Drug classes reported as "Positive" are autom atically reflexed to mass spectrometry confirmation/quantitatio n testing. An immunoassay unconfirmed positive screen result may be useful for medical purposes but does not meet forensic standa rds. 3. The absence of expected drug(s) and/or drug metabol ite(s) may indicate non-compliance, inappropriate timing of speci men collection relative to drug administration, poor drug absorption, or limitations of testing. The concentration at which the screening test can detect a drug or metabolite varies within a drug class. Specimens for which drugs or drug classes are detected by the screen are automatically reflexed to a second, more specific technology (mass spectrometry). The concentra tion value must be greater than or equal to the cutoff to be repo rted as positive. Interpretive questions should be directed to the laboratory. 4. For medical purposes only; not valid for forensic u se. Test developed and characteristics determined by [employer]. See Compliance Statement B: [employer]/ CS Performed by [employer], [address] [place] [id number] [email or web address], Cam Sauceda MD, Lab. Director Specimen Serum Performing Organization Address City/[facility] Phon e Number [facility] [address] [place] [phone] [facility] [address] [place] [phone] Hepatitis B core antibody total (03/26/2020 7:36 AM CDT) Pathologist Sig formerly [facility] Hepatitis B core Non-reactive Non-reactive [facility] Specimen Blood Performing Organization Address City/[facility] Phon e Number [facility] DEPARTMENT OF PATHOLOGY AND [address] [place] [address] [phone] [address] C-peptide (03/26/2020 7:36 AM CDT) Pathologist Sig formerly [facility], [facility] C-peptide 3.4 1.1 - 4.4 ng/mL [facility] Specimen Blood Performing Organization Address City/[facility] Phon e Number [facility] DEPARTMENT OF PATHOLOGY AND [address] [place] [address] [phone] [address] Hepatitis B surface antibody (03/26/2020 7:36 AM CDT) Pathologist Sig nature Hepatitis B surface Reactive (A) Non-reactive [facility] Specimen Blood Performing Organization Address City/[facility]/ZIP [facility] Phon e Number [facility] DEPARTMENT OF PATHOLOGY AND [address] [place] [address] [address] Hepatitis B surface antigen (03/26/2020 7:36 AM CDT) Pathologist Sig nature Hepatitis B surface Non-reactive Non-reactive [facility] Specimen Blood Performing Organization Address City/[facility]/ZIP Code Phon e Number [facility] DEPARTMENT OF PATHOLOGY AND [address] [place], [place] [phone] [address] [address] Cytomegalovirus Ab, IgG (03/26/2020 7:36 AM CDT) Cytomegalovirus Ab, IgG Positive (A) Negative [facility] Comment: HOSPITAL Positive; IgG antibody to CMV detected which may indic ate exposure to CMV infection. Specimen Serum Performing Organization Address City/[facility] Phon e Number [facility] DEPARTMENT OF PATHOLOGY AND [address] [place] [phone] CBC with platelet and differential (03/26/2020 7:36 AM CDT) WBC 8.68 4.50 - 11.00 [facility] k/uL [facility] RBC 3.92 (L) 4.40 - 6.[address] [facility] HGB 11.7 (L) 14.0 - 18.0 [facility] g/dL [facility] HCT 36.0 (L) 41.0 - 51.0 % [facility] MCV 91.8 82.0 - 100.0 [facility] MCH 29.8 27.0 - 34.[address] [facility] MCHC 32.5 31.0 - 37.0 [facility] RDW - SD 44.9 37.0 - 55.[address] [facility] MPV 9.7 8.8 - 13.[address] [facility] Platelet count 251 150 - 400 k/uL [facility] Nucleated RBC 0.00 /[address] [facility] Neutrophils 72.5 (H) 39.0 - 69.0 % [facility] Lymphocytes 13.2 (L) 25.0 - 45.0 % [facility] Monocytes 7.7 0.0 - 10.0 % [facility] Eosinophils 5.0 0.0 - 5.0 % [facility] Basophils 1.3 (H) 0.0 - 1.0 % [facility] Immature granulocytes 0.3Comment: 0.0 - 1.0 % [facility] "Immature HOSPITAL granulocytes" (promyelocytes , myelocytes, metamyelocytes ) Specimen Blood Performing Organization Address [facility] Phon e Number [facility] DEPARTMENT OF PATHOLOGY AND [address] [place] [address] [phone] [address] Urine culture (03/26/2020 7:36 AM CDT) Pathologist Sig nature Urine culture SEE COMMENTComment: [facility] Bacteriuria screen HOSPITAL negative. Specimen Performing Organization Address [facility] Phon e Number [facility] DEPARTMENT OF PATHOLOGY AND [address] [place] [address] [address] Serum electrophoresis (03/26/2020 7:36 AM CDT) Protein 6.7 6.3 - 8.3 [facility] Comment: g/dL [facility] 4.6-7.0 g/dL 1 week 4.4-7.6 g/dL 7 months-1year 5.1-7.3 g/dL 1-2 years 5.6-7.5 g/dL >3 years 6.0-8.0 g/dL 18-150 6.3-8.3 g/dL [facility] albumin 4.04 3.51 - 5.42 [facility] g/dL [facility] SPE alpha 1 0.39 0.18 - 0.40 [facility] g/dL [facility] SPE alpha 2 0.54 0.44 - 0.96 [facility] g/dL [facility] SPE beta 0.58 0.52 - 1.07 [facility] g/dL [facility] SPE gamma 1.15 0.70 - 1.54 [facility] g/dL [facility] SPE extended See [facility] interpretation CommentComment: [facility] A normal serum HOSPITAL protein study. SPE interpretation See [facility] CommentComment: [facility] Cristopher Chamberlain, [facility] PhD; Nalini Cortez, PhD; Suraj Otero MD Specimen Serum Performing Organization Address City/[facility]/ZIP [facility] Phon e Number [facility] DEPARTMENT OF PATHOLOGY AND [address] [place] [address] [phone] [address] Prostate specific antigen (03/26/2020 7:36 AM CDT) PSA 0.5 0.0 - 4.0 [facility] Comment: ng/mL HOSPITAL The GEORGE 8000 PSA immunoassay was used. Results obtained with different assay methods or kits should not be used interchangeably and may be differen t. Specimen Blood Performing Organization Address [facility] Phon e Number [facility] DEPARTMENT OF PATHOLOGY AND [address] [place] [address] [phone] [address] Phosphorus level (03/26/2020 7:36 AM CDT) Pathologist Sig nature Phosphorus 7.0 (H) 2.4 - 4.5 mg/dL [facility] Specimen Blood Performing Organization Address [facility] Phon e Number [facility] DEPARTMENT OF PATHOLOGY AND [address] [place] [address] [phone] [address] Parathyroid hormone (03/26/2020 7:36 AM CDT) Pathologist Sig nature PTH 620 (H) 15 - 65 pg/mL [facility] Specimen Blood Performing Organization Address City/[facility]/ZIP [facility] Phon e Number [facility] DEPARTMENT OF PATHOLOGY AND [address] [place] [address] [phone] [address] LDH (03/26/2020 7:36 AM CDT) Pathologist Sig nature LDH 192 87 - 225 U/L [facility] Specimen Blood Performing Organization Address City/[facility] Phon e Number [facility] DEPARTMENT OF PATHOLOGY AND [address] [place] [phone] [place] [address] Hemoglobin A1c (03/26/2020 7:36 AM CDT) Hemoglobin A1C 7.1 (H) 4.0 - 5.6 % [facility] Comment: HOSPITAL HbA1c cutoffs for diagnosing diabetes: 4.0% - 5.6% = normal 5.7% - 6.4% = increased risk for diabetes (prediabetes )9 >=6.5% = diabetes9 Goals for glycemic control (ADA 2016) < 7.0% Target for non adults with diabetes. More or less stringent targets may be appropriate for individual patients. <7.5% Target for Children and adolescents with type 1 diabetes. Specimen Blood Performing Organization Address City/[facility] Phon e Number [facility] DEPARTMENT OF PATHOLOGY AND [address] [place] [address] [phone] [address] Fasting glucose level (03/26/2020 7:36 AM CDT) Pathologist Sig nature Glucose, fasting 65 65 - 99 mg/dL [facility] Specimen Blood Performing Organization Address City/[facility] Phon e Number [facility] DEPARTMENT OF PATHOLOGY AND [address] [place] [address] [phone] [address] Lipid panel (03/26/2020 7:36 AM CDT) Cholesterol 101 <200 mg/dL [facility] Triglycerides 107 <150 mg/dL [facility] HDL cholesterol 49 >40 mg/dL [facility] LDL cholesterol 33Comment: Result <100 mg/dL [facility] obtained by direct [facility] LDL measurement [facility] Comment: [facility] Total Cholesterol (mg/dL) HOSPIT AL <200 Desirable 200-239 Borderline-high >=240 High Triglycerides (mg/dL) <150 Normal 150-199 Borderline-high 200-499 High >=500 Very high HDL Cholesterol (mg/dL) <40 Low (male) <40 Low (female) LDL Cholesterol (mg/dL) <100 Optimal 100-129 Near or above optimal 130-159 Borderline-high 160-189 High >=190 Very high Risk Catergories that modify LDL goals. Risk Catergories LDL goal (mg/d L) CHD and CHD risk equivalent <100 (10-year risk >20%) Multiple (2+) risk factors <130 (10-year risk =<20%) 0-1 risk factors <160 (<10-year risk) Defining levels of lipids in metabolic syndrome Triglycerides >=150 mg/dL HDL Cholesterol Men <40 mg /dL Women <40 mg/ dL Non-HDL cholesterol is a second target for therapy in persons with high triglycerides (>=200 mg/dL) Specimen Blood Performing Organization Address City/[facility] Phon e Number [facility] DEPARTMENT OF PATHOLOGY AND [address] [place] [address] [phone] [address] Comprehensive metabolic panel (03/26/2020 7:36 AM CDT) Sodium 137 135 - 148 [facility] mEq/L [facility] Potassium 4.0 3.5 - 5.0 [facility] mEq/L [facility] Chloride 95 (L) 98 - 112 [facility] mEq/L [facility] CO2 26 24 - 31 mEq/L [facility] Anion gap 16@ANIO (H) 7 - 15 mEq/L [facility] BUN 33 (H) 8 - 23 mg/dL [facility] Creatinine 6.91 (H) 0.70 - 1.20 [facility] mg/dL [facility] Glucose 65 65 - 99 mg/dL [facility] Calcium 8.7 (L) 8.8 - 10.2 [facility] mg/dL [facility] Protein 7.1 6.3 - 8.3 [facility] Comment: g/dL HOSPITAL - 4.6-7.0 g/dL 1 week 4.4-7.6 g/dL 7 months-1year 5.1-7.3 g/dL 1-2 years 5.6-7.5 g/dL >3 years 6.0-8.0 g/dL 18-150 6.3-8.3 g/dL Albumin 3.4 (L) 3.5 - 5.0 [facility] g/dL [facility] A/G ratio 0.9 0.7 - 3.8 [facility] Alkaline phosphatase 145 (H) 40 - 129 U/L [facility] AST 18 10 - 50 U/L [facility] ALT 16 5 - 50 U/L [facility] Total bilirubin 0.3 0.0 - 1.2 [facility] mg/dL HOSPITAL Specimen Blood Performing Organization Address City/[facility] Phon e Number [facility] DEPARTMENT OF PATHOLOGY AND [address] [place] [address] [phone] [address] Echocardiogram complete w contrast and 3D if needed (11/05/2019 11:36 AM TAR PROCESSING TECHNICIAN) Specimen Narrative Performed At [facility] Echo cardiography Report [address] [place] [address], [address], [place] [address] Pat.Name: MARNIE LYLES.ID: [id number] .Date: 11/05/2019 Refer.MD: CELINA XIE Exam Time: 10:23:00 AM Study Type:Ro utine Echo Height: 69in Weight: 202lb BSA: 2.08 m2 Ag e: 1960,59Y Sex: MALE BP: 178/77 HR: 65 bpm Sonogrphr: Marielos Middleton, [facility], Kelley sher, Student Pat. Stat.:Outpatient Study Status :Final Echo Event ID:[id number] Order ID: [id number] Reason for Study:Renal Transplant Evalua tion History [...] PA systolic pressure. MEASUREMENTS: 2D Parasternal [place] Ao An 1.8 cm LVPWd 1.1 cm [...] Radiology Results In - 2019 5:35 PM TAR PROCESSING TECHNICIAN Echocardiography Report [address] [place] [address] Pat.Name: TRUPTI MARNIE Christo Pat.I D: [id number] .Date: 11/05/2019 Refer .: CELINA XIE Exam Time: 10:23:00 AM Study Type:Routine Echo Height: 69in Weigh t: 202lb BSA: 2.08 m2 Age: 8 1960,59Y Sex: MALE BP: 178/77 HR: 65 bpm Sonogrphr: Marielos Middleton RDCS, Kelley sher, Student Pat. Stat.:Outpatient Study Status:Final Echo Event ID:[id number] Order ID: [id number] Reason for Study:Renal Transplant Evalua tion History [...] PA systolic pressure. MEASUREMENTS: 2D Parasternal [place] Ao An 1.8 cm LVPW d 1.1 [...] PM Kp Steinberg M.D. Performing Organization Address City/State/ZIP Code Phon e Number [facility] [address] [place] [address] after 09/20/2019 Insurance Payer Benefit Plan / Subscriber ID Effective Dates Phone Addre ss Type Group BCBS BCBS CHOICE [id number] 2019-Present PPO PPO/F[employer]ERAL EMPL PPO MEDICARE MEDICARE PART A [id number] 2017-Present [place], [place] Medicare AND B Advance Directives For more information, please contact: [phone] Type Date Recorded Patient Door To Door Salesman Explanati on Advance Directives, Living Will 11/02/2017 3:11 PM and Medical Power of Resourcing Consultant Advance Directives, Living Will 03/01/2019 3:12 PM and Medical Power of Resourcing Consultant Code Status Date Activated Date Inactivated Comments Full Code 08/23/2018 3:54 AM 08/27/2018 9:46 PM Code Status decision reached by: Patient
--- OUTSIDE RECORDS SUMMARY | 2020-09-20 13:14 | XMS REPORT | Continuity of Care Document ---
:1960 Author Organization [employer] Care Team Providers Name Role Phone [employer] Unavailable Un available Problems Problem Status Onset Classification Date Comments Sourc e Date Reported AV GRAFT Active 03/04/[address] MALFUNCTION 19 RIGHT UE AV Active 03/04/20 [place] FISTULA 19 MALFUNCTION UNK Active 01/09/[address] 19 N18.6 Active 11/24/[address] 19 Diabetes Active Problem 03/09/2019 [place] mellitus Neuro, (disorder) [facility] [place] [facility] Dyspnea on Active Problem 03/09/2019 [place] exertion Neuro, (finding) [facility] End stage renal Active Problem 03/09/2019 Mis augustine failure on [facility] [place] (disorder) Heart failure Resolved Problem 03/09/2019 Misch er (disorder) [facility] Hypertensive Active Problem 03/09/2019 Mische r disorder, Neuro, systemic [facility] arterial (disorder) Myocardial Resolved Problem 03/09/2019 [place] infarction [facility] (disorder) [facility] Sleep apnea Active Problem 03/09/2019 [place] (finding) [facility] Hand pain Active Problem 03/09/2019 [place] (finding) [facility] Paresthesia Active Problem 03/09/2019 [place] (finding) [facility] Simple obesity Active Problem 03/09/2019 Misc her (disorder) [facility] Sudden Active Problem 03/09/2019 Mische r (finding) [facility] Unspecified 03/09/2019 [place] complication of cardiac and vascular prosthetic device, implant and graft, initial encounter [facility] COMPL OF Active [place] [facility] SURGICALLY CREATED [...] day, # 12 tab, 0 Refill(s), Pharmacy: [facility] [id number] pantoprazole 40 40 mg = 1 tab, Active H mg oral enteric PO, Before 2019 [place] coated tablet Breakfast, # 30 tab, 0 Refill(s), Pharmacy: [facility] [id number] Colchicine 0.6 MG 0.6 mg = 1 tab, Active Oral Tablet PO, BID, # 60 [address] [place] tab, 0 Refill(s), Pharmacy: [facility] [id number] Levofloxacin 500 500 mg = 1 tab, Active MG Oral Tablet PO, Q24H, X 10 2019 [place] [Levaquin] day, # 10 tab, 0 Refill(s), Pharmacy: [facility] [id number] Protonix Notes: Tablet Inactive should not be 2018 [facility] chewed or crushed. (Same as: Protonix) Solu-Medrol Notes: (Same No Longer as:Solu-MEDROL, Active [facility] t A-Methapred) Colchicine 0.6 mg, 1 tab, No Longer Route: PO, Drug Active 2018 t form: TAB, BID, Dosing Weight 92.227, kg, Priority: NOW, Start date: 03/06/19 14:53:00 CDT, Duration: 30 day, Stop date: 04/05/19 9:00:00 CDT tamsulosin Notes: (Same No Longer As: Flomax) Active 2018 [facility] [place] "Do Not Crush" atorvastatin Notes: (Same No Longer As: Lipitor) Active 2018 [facility] [place] [facility] Epogen Notes: (Same No Longer as: Procrit) Active 2018 [facility] [place] epoetin olamide 34857 unit/1 ml VL. For dialysis use only. (Procrit) WASTE: F/P - Red; E -Red MEDICATION WASTE Product Size: 61362 unit Product Wasted: ___ unit vancomycin + Notes: TIME No Longer Sodium Chloride CRITICAL [facility] [address] [facility] 100 mL MEDICATION (Same As: Vancocin) For adult patients only: Round to nearest 250 mg per Medical Staff approval Lactulose 667 Notes: (Same No Longer MG/ML Oral as:Chronulac) Active [address] [facility] Solution Fluticasone Notes: (Same No Longer propionate 0.05 as: Flonase) Active 2018 [place] MG/ACTUAT Metered Dose Nasal [place] [Flonase] Fluticasone 1 spray, NASAL, Active propionate 0.05 BID, # 16 gm, 0 2018 [facility] [place] [facility] MG/ACTUAT Metered Refill(s) Dose Nasal [place] [Flonase] prasugrel 60kg, without No Longer history of Active 2018 [facility] [place] [facility] TIA/Ischemic stroke and without likely bypass surgery Veltassa 8.4 gm, Route: No Longer PO, Drug form: Active 2018 [facility] [place] [facility] PDR/REC, Daily, Dosing Weight 92.227, kg, Start date: 03/05/19 9:00:00 CDT, Duration: 30 day, Stop date: 04/03/19 9:00:00 CDT gabapentin 300 MG Notes: (Same No Longer Oral Capsule as: Neurontin) Active 2018 [place] Insulin Glargine Notes: (Same No Longer 100 UNT/ML as: Lantus) Do Active 2018 [facility] ast Injectable not hold Solution [Lantus] insulin without contacting prescriber WASTE: F/P - Black; E - Municipal Trash Bin "single patient use only" Stable for 28 days at room temperature Expires in days from D ate carvedilol Notes: Give No Longer with food. Active 2018 [facility] [place] [facility] (Same As: Coreg) Aspirin 81 MG Notes: Do not No Longer Enteric Coated crush or chew. Active [place] Tablet (Same As: Ecotrin) Nephro-Dana Rx Notes: (Same No Longer as: Nephro-Dana Active 2018 [facility] t Rx and Diatx) Give with food. Bumetanide Notes: (Same No Longer As: Bumex) Active 2018 [facility] [place] NIFEdipine 30 mg Notes: (Same No Longer [...] Notes: porcine No Longer heparin Active 2018 [facility] [place] zolpidem Notes: (Same No Longer As: Ambien) Active 2018 [facility] [place] tramadol Notes: Not to No Longer hydrochloride 50 exceed Active [address] [facility] MG Oral Tablet 400mg/day. (Same As: Ultram) tizanidine Notes: (Same No Longer As: Zanaflex) Active 2018 [facility] [place] Nitroglycerin 0.4 Notes: (Same No Longer MG Sublingual as:Nitroquick, Active 2018 [place] Tablet Nitrostat) "Do Not Crush" Sublingual tablet Eszopiclone 3 mg, Route: Inactive PO, Drug form: 2018 [facility] [place] [facility] TAB, Bedtime, Dosing Weight 92.227, kg, PRN Insomnia, Start date: 03/04/19 22:42:00 CDT, Duration: 30 day, Stop date: 04/03/19 22:41:00 CDT Albuterol 0.833 Notes: (Same No Longer H MG/ML / as: Duoneb) Active 2018 [facility] [place] Ipratropium [place] 0.167 MG/ML Inhalant Solution Acetaminophen 325 Notes: (Same No Longer MG / Hydrocodone as: Ilfeld Active 2018 [facility] Bitartrate 5 MG 325/5) Do not Oral Tablet exceed 4gm/day [Ilfeld 5/325] of acetaminophen. Zofran Notes: (Same No Longer as: Zofran) Active 2018 [facility] [place] MEDICATION WASTE Product Size: 4 mg Product Wasted: ___ mg Vancomycin 1 ea, Route: Inactive [facility], 2019 [facility] [place] [facility] Dosing Weight 92.227, kg, Start date: 03/04/19 22:00:00 CDT, Duration: 10 day, Stop date: 03/14/19 21:59:00 CDT, Pharmacy to dose, ABX Indication: Skin/Soft Tissue Infection cefepime Notes: (Same No Longer As: Maxipime) Active 2018 [facility] [place] MEDICATION WASTE Product Size: 1000 mg Product Wasted: ___ mg Calcium Chloride 125 mL, 75 Inactive 0.0014 MEQ/ML / ml/hr, Infuse 2018 [facility] Potassium Over: 1.7 hr, Chloride 0.004 Route: IV, 125, MEQ/ML / Sodium Drug form: Chloride 0.103 SOLN, ONCE, MEQ/ML / Sodium Dosing Weight Lactate 0.028 92.227 kg, MEQ/ML Injectable Start date: Solution 03/04/19 21:22:00 CDT, Stop date: 03/04/19 21:22:00 CDT Insulin Lispro Notes: (Same No Longer as: Humalog) Active 2018 [facility] [place] Roll in palms of hands gently; Do not shake vigorously. WASTE: F/P - Black; E - Municipal Trash Bin Stable for 28 days at room temperature. Expires in days from D ate Glucagon 1 mg, Route: No Longer IM, Drug form: Active 2018 [facility] [place] PDR/INJ, PRN, Dosing Weight 92.227, kg, PRN Blood Glucose Results, Start date: 03/04/19 21:21:00 CDT, Duration: 30 day, Stop date: 04/03/19 21:20:00 CDT Dextrose 50% 25 gm, 50 mL, No Longer Syringe Route: IVP, Active 2018 [facility] [place] Drug Form: INJ, Dosing Weight 92.227, kg, PRN, PRN Blood Glucose Results, Start date: 03/04/19 21:21:00 CDT, Duration: 30 day, Stop date: 04/03/19 21:20:00 CDT Acetaminophen Notes: Do not No Longer exceed 4 Active 2018 [facility] [place] gm/day. (Same as: Tylenol) tizanidine 2 mg 2 mg = 1 cap, Active oral capsule PO, Q8H, PRN 2019 [facility] ast for muscle spasms, # 90 cap, 0 Refill(s) zolpidem 10 mg 10 mg = 1 tab, No Longer oral tablet PO, Bedtime, Active 2018 [facility] PRN as needed for insomnia, 0 Refill(s) eszopiclone 3 mg 3 mg = 1 tab, No Longer oral tablet PO, Bedtime, Active 2018 [facility] PRN for insomnia, 0 Refill(s) Albuterol 0.833 3 mL, Active MG/ML / INHALATION, 2019 I[place] Q4H, PRN [place] 0.167 Wheezing, # 30 MG/ML Inhalant ea, 1 Refill(s) Solution NIFEdipine 30 mg 30 mg = 1 tab, Active oral tablet, PO, Before 2018 [facility] t extended release Breakfast, # 30 tab, 0 Refill(s) Acetaminophen 300 1 tab, PO, Q8H, No Longer 02/23 MG / Codeine PRN Pain Score Active 2018 [place] Phosphate 30 MG 6-10, 0 Oral Tablet Refill(s) [Tylenol with Codeine #3] patiromer 8400 MG 8.4 gm, PO, Active Powder for Oral Daily, 0 2018 [facility] Suspension Refill(s) [Veltassa] atorvastatin 10 10 mg = 1 tab, Active H mg oral tablet PO, Bedtime, # 2019 [place] 90 tab, 0 Refill(s) Lactulose 667 20 gm = 30 mL, Active MG/ML Oral PO, After 2018 Solution Dinner, 0 Refill(s) sucroferric 500 mg = 1 tab, Active oxyhydroxide 500 CHEW, [address] [facility] [address] MG Chewable TID-Meals, 0 [...] Flumazenil Notes: (Same Inactive as: Romazicon) 2018 [facility] [place] Fentanyl Notes: (Same Inactive as: Sublimaze) 2018 [facility] [place] Preservative free. Hydromorphone Notes: Same as: Inactive H Dilaudid 2019 [facility] [place] Naloxone Notes: Same as Inactive Narcan 2018 [facility] [place] Oxycodone Notes: (Same Inactive as: Roxicodone) 2018 [facility] Acetaminophen Notes: Max Inactive acetaminophen 2018 [facility] [place] 4000 mg/day (4 gm/day). (Same as: Tylenol Extra Strength) Labetalol 10 mg, 2 mL, Inactive Route: IVP, 2018 [facility] [place] Drug form: INJ, Q5Min, Dosing Weight 90.682, kg, PRN Elevated BP, Start date: 02/21/19 14:37:00 CDT, Duration: 5 doses or times, Stop date: 02/22/19 0:00:00 CDT Hydralazine Notes: (Same Inactive as: Apresoline) 2018 [facility] t Push over 5 minutes Diphenhydramine Notes: (Same Inactive as: Benadryl) 2018 [facility] [place] Ondansetron Notes: (Same Inactive as: Zofran) 2018 [facility] [place] MEDICATION WASTE Product Size: 4 mg Product Wasted: ___ mg Meperidine Notes: (Same Inactive As: Demerol) 2018 Benadryl 25 mg, Route: Inactive 02/21/ MH IVP, ONCE, 2018 [facility] [place] Dosing Weight 90.682, kg, PRN Itching, Start date: 02/21/19 14:28:00 CDT phenylephrine Route: IV, Drug Inactive 02/21/ M H (ANES) form: INJ, 2018 ONCE, Stop date: 02/21/19 13:58:00 CDT Acetaminophen 325 Notes: Do not Inactive 02/21/ MH MG / Hydrocodone exceed 4gm/day 2018 [facility] [place] Bitartrate 10 MG of Oral Tablet acetaminophen. (Same as: [place] 325/10) Morphine 2 mg, 1 mL, Inactive 02/21/ MH Route: IVP, 2018 [facility] [place] Drug form: SOLN, Q3H, Dosing Weight 90.682, [...] Route: IV, Drug Inactive form: INJ, 2018 [facility] [place] ONCE, Stop date: 02/21/19 12:42:00 CDT vancomycin (ANES) Route: IV, Drug Inactive 02/21 1000 mg form: INJ, 2018 [facility] [place] Start date: 02/21/19 12:10:00 CDT, Stop date: 02/21/19 13:10:00 CDT Sodium Chloride Route: IV, Inactive 0.9% IV (ANES) Total Volume: 2018 [facility]ast 1000 mL 1,000, Start date: 02/21/19 11:52:00 CDT, Stop date: 02/21/19 12:52:00 CDT Dextrose 50% 12.5 gm, 25 mL, Inactive Syringe Route: IVP, 2018 [facility] [place] Drug Form: INJ, Dosing Weight 90.682, kg, ONCE, Start date: 02/21/19 11:30:00 CDT, Stop date: 02/21/19 11:30:00 CDT Sodium Chloride 1,000 mL, Rate: Inactive 0.9% IV 1000 mL 25 ml/hr, 2018 [facility] ast Infuse over: 40 hr, Route: IV, Dosing Weight 90.682 kg, Total Volume: 1,000, Start date: 02/21/19 9:49:00 CDT, Duration: 30 day, Stop date: 03/23/19 9:48:00 CDT, 2.11, m2 Ancef + sterile Notes: (Same No Longer 01/29/ H water 20 mL As: Ancef, Active 2018 [facility] [place] Kefzol) MEDICATION WASTE Product Size: 1000 mg Product Wasted: ___ mg Vancomycin 2001 mg: No Longer infuse over 2.5 Active 2018 [facility] t hours For adult patients only: Round to nearest 250 mg per Medical Staff approval MEDICATION WASTE Product Size: 1000 mg Product Wasted: ___ mg Insulin Glargine 36 unit, SUB-Q, Active 100 UNT/ML Daily, 0 2018 [facility] [place] Injectable Refill(s) Solution [Lantus] gabapentin 300 MG 300 mg = 1 cap, Active 01/16/ [place] Oral Capsule PO, Daily, # 30 2019 [place] ro cap, 3 Refill(s), Pharmacy: [facility] [id number] gabapentin 300 MG See No Longer her Oral Capsule Instructions, 1 Active 2018 [place] ro cap PO after dialysis, # 30 cap, 2 Refill(s), [facility] [id number] Ondansetron 4 mg, Route: Inactive 12/20[facility] IVP, ONCE, 2019 [facility] [place] [facility] Dosing Weight 90.966, kg, PRN Nausea & Vomiting, Start date: 12/20/18 9:13:00 CDT Meperidine 12.5 mg, Route: Inactive 12/20[facility] IVP, Q30Min, 2018 [facility] [place] Dosing Weight 90.966, kg, PRN Other -See Comment, For shivering, Start date: 12/20/18 9:13:00 CDT, Duration: 2 doses or times, Stop date: Limited # of times Hydralazine 10 mg, Route: Inactive IVP, Q20Min, 2018 [facility] [place] Dosing Weight 90.966, kg, PRN Elevated BP, Start date: 12/20/18 9:13:00 CDT, Duration: 2 doses or times, Stop date: Limited # of times Naloxone 0.4 mg, Route: Inactive IVP, Q2MIN, 2018 [facility] [place] Dosing Weight 90.966, kg, PRN Narcotic Reversal, [...] mg, Route: Inactive PO, Drug form: 2018 [facility] [place] TAB, Q4H, Dosing Weight 90.966, kg, PRN Pain Score 4-6, Start date: 12/20/18 9:13:00 CDT, Duration: 30 day, Stop date: 01/19/19 9:12:00 CDT Labetalol 10 mg, Route: Inactive IVP, Q5Min, 2018 [facility] [place] Dosing Weight 90.966, kg, PRN Elevated BP, Start date: 12/20/18 9:13:00 CDT, Duration: 5 doses or times, Stop date: Limited # of times Acetaminophen 1,000 mg, Inactive Route: PO, Drug 2018 [facility] t form: TAB, ONCE, Dosing Weight 90.966, kg, PRN Pain Score 1-3, Start date: 12/20/18 9:13:00 CDT Fentanyl 50 microgram, Inactive Route: IVP, 2018 [facility] [place] Q5Min, Dosing Weight 90.966, kg, PRN Pain Score 7-10, Priority: Routine, Start date: 12/20/18 9:13:00 CDT, Duration: 2 doses or times, Stop date: Limited # of times Flumazenil 0.2 mg, Route: Inactive IVP, PRN, 2018 [facility] [place] Dosing Weight 90.966, kg, PRN Benzodiazepine Reversal, Initial dose, Start date: 12/20/18 9:13:00 CDT, Duration: 30 day, Stop date: 01/19/19 9:12:00 CDT Hydromorphone 0.5 mg, Route: Inactive IVP, Q5Min, 2018 [facility] [place] Dosing Weight 90.966, kg, PRN Pain Score 7-10, Start date: 12/20/18 9:13:00 CDT, Duration: 4 doses or times, Stop date: Limited # of times Acetaminophen 325 Notes: Do not Inactive MG / Hydrocodone exceed 4gm/day 2018 [facility] [place] Bitartrate 10 MG of Oral Tablet acetaminophen. (Same as: [place] 325/10) Acetaminophen 325 Notes: (Same Inactive MG / Hydrocodone as: Ilfeld 2018 [facility] Bitartrate 5 MG 325/5) Do not Oral Tablet exceed 4gm/day of acetaminophen. Sodium Chloride 500 mL, Rate: Inactive H 0.9% IV 500 mL 25 ml/hr, 2018 [facility] Infuse over: 20 hr, Route: IV, Dosing Weight 90.966 kg, Total Volume: 500, Start date: 12/20/18 7:38:00 CDT, Duration: 1 day, Stop date: 12/21/18 7:37:00 CDT, 2.11, m2 prasugrel 10 mg, PO, Active Daily, 0 2018 [facility] [place] Refill(s) tamsulosin 0.4 mg 0.4 mg = 1 cap, Active oral capsule PO, Daily, # 30 2019 [place] cap, 0 Refill(s) carvedilol 6.25 mg, PO, Active BID, 0 2018 Refill(s) Vancomycin 2001 mg: No Longer infuse over 2.5 Active 2018 [facility] t hours For adult patients only: Round to nearest 250 mg per Medical Staff approval MEDICATION WASTE Product Size: 1000 mg Product Wasted: ___ mg Ancef + sterile Notes: (Same No Longer H water 20 mL As: Ancef, Active 2018 [facility] [place] Kefzol) MEDICATION WASTE Product Size: 1000 mg Product Wasted: ___ mg Vitamin B1 Daily, 0 Active Refill(s) 2018 [facility] [place] bumetanide 2 mg 2 mg = 1 tab, Active oral tablet PO, BID, 0 2019 [facility] [place] Refill(s) Acidophilus Daily, 0 Active Refill(s) 2018 [facility] [place] Aspirin 81 MG 81 mg = 1 tab, Active Enteric Coated PO, Daily, # 90 2019 [place] Tablet tab, 3 Refill(s) Nitroglycerin 0.4 0.4 mg = 1 tab, Active MG Sublingual SL, Q5Min, 0 2018 [facility] Tablet Refill(s) zolpidem 10 mg 10 mg = 1 tab, Active sublingual tablet SL, Bedtime, 2019 [place] PRN for sleep, 0 Refill(s) Auryxia 420 mg, PO, 0 Active Refill(s) 2018 [facility] [place] NIFEdipine 30 mg 30 mg = 1 tab, Active oral tablet, PO, Daily, 0 2019 [facility] ast extended release Refill(s) sevelamer 800 mg = 1 tab, Active carbonate 800 MG PO, 0 Refill(s) 2018 [facility] [place] Oral Tablet [Renvela] pregabalin 50 MG 50 mg = 1 cap, Active Oral Capsule PO, BID, 0 2018 [facility] t [Lyrica] Refill(s) Insulin Glargine 35 units, Active 100 UNT/ML SUB-Q, Daily, 0 2018 [facility] Injectable Refill(s) Solution [Lantus] Allergies, Adverse Reactions, Alerts Substance Category Reaction Severity Reaction Status Date Comments S ource type Reported No Known Assertion Drug Medication allergy [facility] Allergies Immunizations No Data Provided for This Section Results Order Name Results Value Reference Date Interpretation Comments Lata rce Range Gram Stain No Wbc'S Or Organisms Seen 03/07 Report Many RBC's [facility] C Synov w/GS No Growth; 03/07 [facility] [place] CHEM PANEL Uric Acid 2.1 3.8 - 8.0 03/06 [facility] [place] HEMATOLOGY INR 0.99 0.85 - 03/06 1.17 [facility] [place] HEMATOLOGY PT 12.9 12.0 - 03/06 14.7 [facility] [place] HEMATOLOGY PTT 43.3 22.9 - 03/06 35.8 [facility] [place] HEMATOLOGY Sed Rate >100 0 - 15 03/06 [facility] [place] IMMUNOLOGY Cyc Cit Pep <0.5 <=2.9 03/06 Ab unit/mL [facility] [place] IMMUNOLOGY RF Qnt <10 0 - 20 03/06 [facility] [place] IMMUNOLOGY C-REACTIVE 138.0 <=2.9 mg/L 03/06 PROTEIN /2018 [facility] [place] Culture: Culture In 03/06 Anaerobic Progress [facility] [place] CHEM PANEL eGFR 13 03/06 Result Comment: The [facility] [place] eGFR is calculated using the CKD-EPI formula. [...] 3.5 - 5.1 06/12 MH Lvl /2019 [facility] [place] CHEM PANEL Chloride Lvl 102 95 - 109 / /2018 [facility] [place] CHEM PANEL Creatinine 4.69 0.50 - 06/ MH Lvl 1.40 /2019 [facility] [place] CHEM PANEL Sodium Lvl 137 135 - 145 / [facility] [place] CHEM PANEL Glucose Lvl 162 70 - 99 / [facility] [place] CHEM PANEL BUN 15 7 - 22 / [facility] [place] CHEM PANEL CO2 24 24 - 32 / [facility] [place] CHEM PANEL Calcium Lvl 8.5 8.5 - 10.5 03/06 [facility] [place] CHEM PANEL AGAP 15.7 10.0 - 06/ MH 20.0 /2019 [facility] [place] HEMATOLOGY Eosinophils 0.3 0.0 - 0.5 /12 MH # /2019 [facility] [place] HEMATOLOGY Basophils # 0.1 0.0 - 0.2 / /2018 [facility] [place] HEMATOLOGY Neutrophils 3.7 1.5 - 8.1 / MH # /2019 [facility] [place] HEMATOLOGY Lymphocytes 0.8 1.0 - 5.5 / MH # /2019 [facility] [place] HEMATOLOGY Monocytes # 0.5 0.0 - 0.8 / /2018 [facility] [place] HEMATOLOGY Lymphocytes 15.8 20.0 - 06 MH 40.0 /2019 [facility] [place] HEMATOLOGY Segs 68.7 45.0 - / MH 75.0 /2019 [facility] [place] HEMATOLOGY Basophils 1.9 0.0 - 1.0 / /2018 [facility] [place] HEMATOLOGY Eosinophils 4.9 0.0 - 4.0 / [facility] [place] HEMATOLOGY Monocytes 8.7 2.0 - 12.0 / [facility] [place] HEMATOLOGY RDW 15.4 11.5 - / MH 14.5 /2019 [facility] [place] HEMATOLOGY MCH 30.1 27.0 - 03/06 MH 31.0 /2018 [facility] [place] HEMATOLOGY Platelet 351 133 - 450 / [facility] [place] HEMATOLOGY Hgb 9.6 14.0 - 06/ MH 18.0 /2019 [facility] [place] HEMATOLOGY MCHC 32.6 32.0 - 06/ MH 36.0 [facility] [place] HEMATOLOGY Hct 29.4 42.0 - 03/06 54.0 2019 [facility] [place] HEMATOLOGY MCV 92.2 80.0 - 03/06 94.0 [facility] [place] HEMATOLOGY MPV 7.2 7.4 - 10.4 03/06 [facility] [place] HEMATOLOGY RBC 3.19 4.70 - 03/06 MH 6.10 [facility] [place] HEMATOLOGY WBC 5.4 3.7 - 10.4 03/06 [facility] [place] IMMUNOLOGY Hep Bs Ag Negative Negative 03/05 *NA* /2018 [facility] [place] (03/05/19 8:30 AM) GENTAMICIN Gram Stain Rare Gram Positive Cocci 03/05 MH :SUSC:PT:I [facility] Culture: Few Enterobacter cloacae 03/05 MH :SUSC:PT:I Wound/Absces Few Klebsiella pneumoniae ssp [facility] w/Gram Few Pseudomonas aeruginosa QN:EDDY Stain Few Citrobacter koseri Growth In Subculture Broth Only : Staphylococcus Species , Not S. aureus [facility] Citrobacter Citrobacte 03/05 MH :SUSC:PT:I [facility]i r [facility] Pseudomonas Pseudomona 03/05 MH :SUSC:PT:I aeruginosa s [facility] aeruginosa QN:EDDY GENTAMICIN Klebsiella Klebsiella 03/05 MH :SUSC:PT:I pneumoniae pneumoniae [facility] SOLATE:ORD ssp ssp QN:EDDY pneumoniae pneumoniae GENT[facility]ICIN Enterobacter Enterobact 03/05 MH :SUSC:PT:I cloacae er cloacae [facility] CHEM PANEL Uric Acid 8.1 3.8 - 8.0 03/05 [facility] [place] CHEM PANEL Lactic Acid 0.8 0.5 - 2.2 03/05 Lvl [facility] [place] CHEM PANEL AST 19 0 - 37 03/05 [facility] [place] CHEM PANEL Bili Total 0.4 0.2 - 1.3 03/05 [facility] [place] CHEM PANEL eGFR 4 03/05 Result Comment: [facility] [place] [place] eGFR is calculated using the CKD-EPI formula. [...] PANEL ALT 15 0 - 65 03/05 [facility] [place] CHEM PANEL Albumin Lvl 2.5 3.5 - 5.0 03/05 [facility] [place] CHEM PANEL Total 6.0 6.4 - 8.4 03/05 Protein [facility] [place] CHEM PANEL Alk Phos 303 39 - 136 03/05 [facility] [place] CHEM PANEL Creatinine 12.60 0.50 - 03/05 Lvl 1.40 [facility] [place] CHEM PANEL BUN 55 7 - 22 03/05 [facility] CHEM PANEL Glucose Lvl 157 70 - 99 03/05 [facility] [place] CHEM PANEL Chloride Lvl 100 95 - 109 03/05 [facility] [place] CHEM PANEL Potassium 4.3 3.5 - 5.1 03/05 Lvl /2018 [facility] CHEM PANEL Sodium Lvl 135 135 - 145 03/05 [facility] [place] CHEM PANEL Calcium Lvl 7.6 8.5 - 10.5 03/05 [facility] CHEM PANEL CO2 25 24 - 32 03/05 [facility] CHEM PANEL AGAP 14.3 10.0 - 03/05 MH 20.0 [facility] [place] CHEM PANEL B/C Ratio 4 6 - 25 03/05 [facility] [place] CHEM PANEL Globulin 3.5 2.7 - 4.2 03/05 [facility] [place] CHEM PANEL A/G Ratio 0.7 0.7 - 1.6 03/05 [facility] [place] HEMATOLOGY Basophils 2.3 0.0 - 1.0 03/05 [facility] [place] HEMATOLOGY Neutrophils 3.3 1.5 - 8.1 03/05 MH # /2019 [facility] [place] HEMATOLOGY Lymphocytes 1.0 1.0 - 5.5 06/11 MH # /2018 [facility] HEMATOLOGY Monocytes # 0.6 0.0 - 0.8 03/05 [facility] HEMATOLOGY Eosinophils 0.3 0.0 - 0.5 03/05 MH # /2018 [facility] HEMATOLOGY Segs 63.2 45.0 - 03/05 MH 75.0 /2018 [facility] HEMATOLOGY Lymphocytes 18.1 20.0 - 03/05 MH 40.0 /2018 [facility] [place] HEMATOLOGY Basophils # 0.1 0.0 - 0.2 03/05 [facility] HEMATOLOGY Monocytes 11.0 2.0 - 12.0 03/05 [facility] HEMATOLOGY Eosinophils 5.4 0.0 - 4.0 03/05 [facility] HEMATOLOGY MCH 29.8 27.0 - 03/05 MH 31.0 [facility] [place] HEMATOLOGY MCHC 33.1 32.0 - 03/05 MH 36.0 [facility] [place] HEMATOLOGY WBC 5.3 3.7 - 10.4 03/05 [facility] [place] HEMATOLOGY RBC 2.61 4.70 - 03/05 MH 6. [facility] [place] HEMATOLOGY Hgb 7.8 14.0 - 03/05 MH 18.0 [facility] HEMATOLOGY Hct 23.5 42.0 - 03/05 MH 54.0 [facility] [place] HEMATOLOGY MCV 90.1 80.0 - 03/05 MH 94.0 [facility] [place] HEMATOLOGY MPV 7.6 7.4 - 10.4 03/05 [facility] [place] HEMATOLOGY Platelet 295 133 - 450 03/05 [facility] [place] HEMATOLOGY RDW 15.6 11.5 - 03/05 MH 14. [facility] [place] HEMATOLOGY Sed Rate >100 mm/hr 0 - 15 03/05 [facility] [place] IMMUNOLOGY C-REACTIVE 202.0 <=2.9 mg/L 03/05 [facility] HEMATOLOGY WBC 6.0 3.7 - 10.4 02/21 [facility] HEMATOLOGY Hct 33.0 42.0 - 02/21 MH 54.0 [facility] HEMATOLOGY RBC 3.64 4.70 - 02/21 MH 6. [facility] HEMATOLOGY MCV 90.5 80.0 - 02/21 MH 94.0 [facility] [place] HEMATOLOGY Hgb 10.8 14.0 - 02/21 MH 18.0 [facility] HEMATOLOGY RDW 14.6 11.5 - 02/21 MH 14. [facility] HEMATOLOGY Platelet 224 133 - 450 02/21 [facility] [place] HEMATOLOGY MCHC 32.9 32.0 - 02/21 MH 36.0 /2018 [facility] [place] HEMATOLOGY MCH 29.8 27.0 - 02/21 MH 31.0 [facility] [place] HEMATOLOGY MPV 7.8 7.4 - 10.4 02/21 [facility] [place] BLOOD BANK Antibody Negative 02/21 RESULTS Scrn (02/21/19 10:03 AM) /2018 [facility] BLOOD BANK ABO/Rh O POS 02/21 MH RESULTS /2018 [facility] ELECTROLYT Potassium 4.3 3.5 - 5.1 02/21 ES Lvl /2018 [facility] CHEM PANEL eGFR 7 02/21 Result Comment: [facility] [place] eGFR is calculated using the CKD-EPI formula. [...] AGAP 14.2 10.0 - 02/21 MH 20.0 [facility] [place] CHEM PANEL BUN 35 7 - 22 02/21 [facility] [place] CHEM PANEL Chloride Lvl 104 95 - 109 02/21 [facility] [place] CHEM PANEL Calcium Lvl 8.4 8.5 - 10.5 02/21 [facility] CHEM PANEL CO2 26 24 - 32 02/21 [facility] [place] CHEM PANEL Creatinine 7.88 0.50 - 02/21 MH Lvl 1.40 /2018 [facility] [place] CHEM PANEL Glucose Lvl 75 70 - 99 02/21 [facility] [place] CHEM PANEL Potassium 4.2 3.5 - 5.1 02/21 Lvl [facility] CHEM PANEL Sodium Lvl 140 135 - 145 02/21 [facility] [place] BLOOD BANK Antibody Negative 01/29 RESULTS Scrn (01/29/19 10:27 AM) /2018 [facility] BLOOD BANK ABO/Rh O POS 01/29 MH RESULTS /2018 [facility] CHEM PANEL eGFR 6 01/29 Result Comment: [facility] [place] eGFR is calculated using the CKD-EPI formula. [...] Chloride Lvl 104 95 - 109 01/29 [facility] [place] CHEM PANEL Potassium 4.3 3.5 - 5.1 / Lvl /2018 [facility] CHEM PANEL CO2 27 24 - 32 01/29 [facility] [place] CHEM PANEL Calcium Lvl 8.2 8.5 - 10.5 01/29 [facility] [place] CHEM PANEL Glucose Lvl 113 70 - 99 01/29 [facility] CHEM PANEL Sodium Lvl 140 135 - 145 01/29 [facility] CHEM PANEL Creatinine 8.24 0.50 - 01/29 Lvl 1.40 /2018 [facility] CHEM PANEL BUN 45 7 - 22 / [facility] [place] CHEM PANEL AGAP 13.3 10.0 - 05/ MH 20.0 /2019 [facility] [place] HEMATOLOGY Monocytes # 0.6 0.0 - 0.8 05/ [facility] [place] HEMATOLOGY Eosinophils 0.3 0.0 - 0.5 / # /2019 [facility] [place] HEMATOLOGY Basophils # 0.1 0.0 - 0.2 / [facility] [place] HEMATOLOGY Monocytes 11.3 2.0 - 12.0 / /2018 [facility] [place] HEMATOLOGY Basophils 1.5 0.0 - 1.0 / [facility] HEMATOLOGY Eosinophils 5.5 0.0 - 4.0 05/ /2018 [facility] [place] HEMATOLOGY Lymphocytes 15.4 20.0 - 01/29 MH 40.0 /2018 [facility] [place] HEMATOLOGY Segs 66.3 45.0 - 01/29 75.0 /2018 [facility] [place] HEMATOLOGY Neutrophils 3.6 1.5 - 8.1 / MH # /2018 [facility] [place] HEMATOLOGY Lymphocytes 0.8 1.0 - 5.5 / MH # /2018 [facility] [place] HEMATOLOGY PTT 43.7 22.9 - 01/29 MH 35.8 /2018 [facility] [place] HEMATOLOGY INR 1.00 0.85 - 01/29 MH 1.17 /2018 [facility] [place] HEMATOLOGY PT 13.0 12.0 - 01/29 MH 14.7 /2018 [facility] [place] HEMATOLOGY Platelet 243 133 - 450 01/29 /2018 [facility] [place] HEMATOLOGY MPV 7.5 7.4 - 10.4 01/29 /2018 [facility] [place] HEMATOLOGY WBC 5.4 3.7 - 10.4 01/29 /2018 [facility] [place] HEMATOLOGY RBC 3.90 4.70 - 01/29 6.10 [facility] [place] HEMATOLOGY MCH 30.3 27.0 - 01/29 31.0 /2018 [facility] [place] HEMATOLOGY MCHC 33.6 32.0 - 01/29 MH 36.0 /2018 [facility] [place] HEMATOLOGY Hgb 11.8 14.0 - 01/29 MH 18.0 /2018 [facility] [place] HEMATOLOGY MCV 90.1 80.0 - 01/29 94.0 /2018 [facility] [place] HEMATOLOGY Hct 35.1 42.0 - 01/29 MH 54.0 /2018 [facility] [place] HEMATOLOGY RDW 14.6 11.5 - 01/29 MH 14.5 /2018 [facility] [place] BLOOD BANK Antibody Negative 12/11 RESULTS Scrn (12/11/18 12:35 PM) /2018 [facility] BLOOD BANK ABO/Rh O POS 12/11 RESULTS /2018 [facility] [place] CHEM PANEL eGFR 6 12/11 Result Comment: [facility] [place] eGFR is calculated using the CKD-EPI formula. [...] Glucose Lvl 62 70 - 99 12/11 [facility] [place] CHEM PANEL BUN 62 7 - 22 12/11 [facility] [place] CHEM PANEL Calcium Lvl 8.1 8.5 - 10.5 12/11 [facility] CHEM PANEL CO2 27 24 - 32 12/11 [facility] [place] CHEM PANEL Chloride Lvl 105 95 - 109 12/11 [facility] [place] CHEM PANEL Potassium 6.0 3.5 - 5.1 12/11 Lvl /2018 [facility] [place] CHEM PANEL Sodium Lvl 140 135 - 145 12/11 [facility] [place] CHEM PANEL Creatinine 8.46 0.50 - 12/11 Lvl 1.40 [facility] [place] CHEM PANEL AGAP 14.0 10.0 - 12/11 MH 20.0 [facility] [place] HEMATOLOGY Basophils 1.9 0.0 - 1.0 12/11 [facility] HEMATOLOGY Neutrophils 2.7 1.5 - 8.1 12/11 MH # /2018 [facility] HEMATOLOGY Eosinophils 4.4 0.0 - 4.0 12/11 [facility] HEMATOLOGY Monocytes 11.6 2.0 - 12.0 12/11 [facility] [place] HEMATOLOGY Basophils # 0.1 0.0 - 0.2 [...] 1.04 0.85 - 12/11 MH 1.17 /2018 [facility] [place] HEMATOLOGY PT 13.4 12.0 - 12/11 MH 14.7 [facility] [place] HEMATOLOGY MCHC 32.3 32.0 - 03/19 36.0 [facility] RDW 16.9 11.5 - 12/11 14.5 [facility] MCH 30.1 27.0 - 12/11 31.0 [facility] Platelet 214 133 - 450 12/11 [facility] MPV 8.1 7.4 - 10.4 12/11 [facility] MCV 93.1 80.0 - 12/11 94.0 [facility] Hgb 11.0 14.0 - 12/11 18.0 [facility] Hct 34.1 42.0 - 12/11 54.0 [facility] WBC 4.6 3.7 - 10.4 12/11 [facility] RBC 3.66 4.70 - 12/11 6.10 [facility] Hgb A1C 5.0 <=5.6 % 12/11 [facility] [place] Pathology Reports No Data Provided for This Section Diagnostic Reports Report Value Date Source Ankle wo contrast MRI Clinical Indication: Right a nkle pain and swelling - history of gout; rule out osteomyelitis 03/06/2019 [facility] Comparison: Right ankle series 03/04/2019 TECHNIQUE: [...] with percutaneous fluid sampling and analysis. SL: [id number] Foot wo contrast MRI Clinical Indication: - hist ory of gout , right foot and ankle pain 03/06/2019 [facility] Comparison: Right ankle series 03/04/2019 TECHNIQUE: [...] foot. Dorsal subcutaneous edema. No abscess. SL: [id number] Arthrocentesis small Please discard the moderate sedation portion of the report. Moderate sedation was not utilized during this exam. 03/06/2019 [facility] Joint DX PROCEDURE: Sonographic guided biopsy [...] record is perma nently stored in the EPIS information system. The personal supervised moderate sedation [...] views DX Patient Name: MARNIE LYLES 03/04/2019 [facility] : 1960; Age: 58 years y/o Male MR: [id number] Study: 3 view examination of the right [...] views DX Chest 2 views DX 12/11/2018 [facility] CLINICAL HISTORY: Coughing - pre-op COMPARISON: [...] No other significant abnormality is noted. SL: [id number] Consultation Notes No Data Provided for This Section Discharge Summaries No Data Provided for This Section History and Physicals No Data Provided for This Section Vital Signs Vital Sign Value Date Comments Source Respitory Rate 18 03/07/2019 [facility] Systolic (mm Hg) 149 03/07/2019 [facility] t Diastolic (mm Hg) 69 03/07/[address] [facility] [address] Temperature Oral (F) 98.2 F 03/07/2019 [place] [facility] Rate 69 03/07/2019 [facility] Respitory Rate 12 03/07/2019 [facility] Respitory Rate 18 03/07/2019 [facility] Systolic (mm Hg) 159 03/07/2019 [facility] t Diastolic (mm Hg) 68 03/07/[address] [address] Heart Rate 68 03/07/2019 [facility] Temperature Oral (F) 97.6 F 03/07/2019 [facility] Systolic (mm Hg) 157 03/07/2019 [facility] Diastolic (mm Hg) 67 03/07/[address] Heart Rate 69 03/07/2019 [facility] Temperature Oral (F) 98.3 F 03/07/2019 [facility] Height 172.72 cm 03/04/2019 [facility] Weight 92.227 03/04/2019 [facility] BMI Calculated 30.92 03/04/2019 [facility] Respitory [...] 01/29/2019 [facility] BMI Calculated 30.4 01/29/2019 [facility] Weight 90.682 01/29/2019 [facility] Height 172.72 [...] 12/11/2018 Bre[facility] Heart Rate 69 12/11/2018 [facility] Encounters Location Location Encounter Encounter Reason Attending ADM DC Stat us Source Details Type Number For Provider Date Date Visit [facility] Surgery [id number] Stephan 12/20 12/20 [facility] Outpatient [id number] Juventino 12/25 Active [facility] Ganesh [facility]NA Phone [id number] 01/15 01/17 Misc her Neurology [facility] [place] Outpatient [id number] Juventino 01/31 Active [facility] Ambulatory [id number] Juventino 01/31 01/31 [facility] Neurology Pre-Reg [facility] [place] [facility] Surgery [id number] Stephan 02/21 02/21 [facility] Inpatient [id number] Rolan Rice 03/04 03/07 [facility] Procedures Procedure Code Date Perfomer Comments Source Stent [facility] [id number] [id number] [facility]/23[facility] [id number] [facility] arteriovenous fistula operation Assessment and Plan Assessment and Plan Date Source Extracted from:Title: History and Physical 03/07/2019 [facility] Author: Veena De La Rosa MD Date: 03/04/19 58-year-old male with history of ESRD, t ype 2 diabetes, hypertension, CAD status post stentswho presented to a freestanding ED in [place] complaining of swelling and purulent drainage coming from his right AV fistula. Infection of AV Fistula - continue vancomycin and cefepime - check blood and wound cultures - pain control with norco - npo after midnight for possible vascular surgery intervent ion ESRD - pt does not know name of his home health care social worker - nephrology consult for inpatient HD R [...] History Date Source Social History TypeResponse 03/05/2019 [facility] Substance Abuse Use: None. Sexual Sexually active: No. Exercise 1 Employment/School Status: Employed. Work/School description: [employer] Alcohol Current, Type Wine. Frequency: 1-2 times per week.2 Smoking Status Former smoker; Type: Cigarettes; Exposur e to Tobacco Smoke None; Cigarette Smoking Last 365 Days No; Reg Smoking Cessation Counseling No; Other Tobacco Frequency Pt. quit in 2016.; entered on: 03/04/19 [id number] Social History TypeResponse 12/11/2018 [facility] [...]
--- OUTSIDE RECORDS SUMMARY | 2020-09-20 13:17 | XMS REPORT | Continuity of Care Document ---
:1960 Author Organization [facility] t Address [address] [place] [address] Care Team Providers Name Role Phone Estephania BRAGG Primary Care Physician Aamir Xie MD Attending Clinician Yariel BRAGG Attending Clinician Lolly DONOHUE Attending Clinician Unavailable Tate Attending Clinician Unavailable Yadira Attending Clinician Unavailable Provider Attending Clinician Unavailable Frances BRAGG Attending Clinician Zain Attending Clinician Unavailable David Lackey MD Attending Clinician Chato Thayer MD Attending Clinician Luis BRAGG Attending Clinician Almaz CANCHOLA Attending Clinician Unavailable Pato DONOHUE Attending Clinician Unavailable Gene CANCHOLA Attending Clinician Unavailable LEVAR Attending Clinician Unavailable Robert Rice Attending Clinician Kevin Ruiz Attending Clinician Edward Obrien Attending Clinician VENKATA Admitting Clinician Unavailable Robert Rice Admitting Clinician Payers Payer Name Policy Type Policy Effective Date Expiration Date Sour ce Number BCBSBCBS CHOICE [id number] 2019 [facility] 6 00:00:00 Methodis t [id number] 019-PresentPPO MEDICAREMEDICARE PART [id number] 2017 Jhonny Yi AND 00:00:00 [facility] [id number] 2017[place] Condition Condition Condition Status Onset Resolution Last Treating Co mments Source Name Details Category Date Date Treatment Clinician Date Alcohol Alcohol Disease Active [facility] use use 04-23 Methodi disorder, disorder, 00:00: st severe, severe, 00 dependence dependence 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 edibrittany duced mood duced mood 04-23 Me thodi disorder disorder 00:00: st 00 Charcot Charcot Disease Active 2018-09 Yantis ankle, ankle, 0-15 Methodi right right 00:00: st 00 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 - Me thodi ankle, ankle, 00:00: st right, right, 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 AV GRAFT Diagnosis Active 2019-03-11 M emoria MALFUNCTIO 6-10 22:05:00 l N AV GRAFT 00:00: Braulio n MALFUNCTIO 00 N Active 03/04/2019 [facility] RIGHT UE Diagnosis Active 2019-03-04 M emoria AV FISTULA 6-10 17:22:00 l MALFUNCTIO RIGHT UE 00:00: Jay nick N AV FISTULA 00 MALFUNCTIO N Active 03/04/2019 [facility] UNK Diagnosis Active 2019-04-23 Mem oria 4-16 13:47:00 l UNK 00:00: Ganesh 00 Active 01/08/2019 [facility] N18.6 Diagnosis Active 2018-12-20 Mem oria 3-01 07:30:00 l N18.6 00:00: Ganesh 00 Active 11/23/2018 [facility] Mood Mood Disease Active Yantis disorder disorder - Method i due to a due to a 00:00: st general general 00 medical medical condition condition Dyspnea Dyspnea Disease Active 2017-09 Yantis 2-11 Methodi 00:00: st 00 SABAS SABAS Disease Active 2017-09 Yantis (obstructi (obstructi 2-11 Me thodi ve sleep ve sleep 00:00: st apnea) apnea) 00 COPD COPD Disease Active 2017-09 Yantis (chronic (chronic 11-05 Method i obstructiv obstructiv 00:00: st e e 00 pulmonary pulmonary disease) disease) with acute with acute bronchitis bronchitis Pneumonia Pneumonia Disease Active 2017-09 Sascha lovettn 10-23 Methodi 00:00: st 00 Encephalop Encephalop Disease Active 2017-09 H oubrittany aranda athshimon 0 Methodi 00:00: st 00 History of History of Disease Active Overview : Yantis blood blood in Methodi transfusio transfusio n n 2017. Wears Wears Disease Active Yantis glasses glasses Methodi st Never Never Disease Active Yantis exercises exercises Meth megan st Immunizati Immunizati Disease Active [facility] ons up to ons up to Meth megan date date st Unspecifie Problem 2019-03-09 M emoria d 22:22:51 l complicati Braulio n on of Unspecifie cardiac d and complicati vascular on of prosthetic cardiac device, and implant vascular and graft, prosthetic initial device, encounter implant and graft, initial encounter 03/09/2019 [facility] Heart Problem Resolve 2019-03-09 Fernie edi failure d 22:22:51 l (disorder) Heart Meghna nn failure (disorder) Resolved Problem 03/09/2019 [facility] Myocardial Problem Resolve 2019-03-09 Memoria infarction d 22:22:51 l (disorder) Braulio n Myocardial infarction (disorder) Resolved Problem 03/09/2019 [facility] Diabetes Problem Active 2019-03-09 Mem oria mellitus 22:22:51 l (disorder) Diabetes He rmann mellitus (disorder) Active Problem 03/09/2019 [facility] Dyspnea on Problem Active 2019-03-09 M emoria exertion 22:22:51 l (finding) Dyspnea Herm helen on exertion (finding) Active Problem 03/09/2019 [facility] End stage Problem Active 2019-03-09 Me moria renal 22:22:51 l failure on End Braulio n dialysis stage (disorder) renal failure on dialysis (disorder) Active Problem 03/09/2019 [facility] Hypertensi Problem Active 2019-03-09 M emoria ve 22:22:51 l disorder, [place] systemic Hypertensi arterial ve (disorder) disorder, systemic arterial (disorder) Active Problem 03/09/2019 [facility] Sleep Problem Active 2019-03-09 Memor ia apnea 22:22:51 l (finding) Sleep Braulio n apnea (finding) Active Problem 03/09/2019 [facility] Hand pain Problem Active 2019-03-09 Me moria (finding) 22:22:51 l Hand Ganesh pain (finding) Active Problem 03/09/2019 [facility] Paresthesi Problem Active 2019-03-09 M emoria a 22:22:51 l (finding) Ganesh Paresthesi a (finding) Active Problem 03/09/2019 [facility] Simple Problem Active 2019-03-09 Memor ia obesity 22:22:51 l (disorder) Simple Herm helen obesity (disorder) Active Problem 03/09/2019 [facility] Sudden Problem Active 2019-03-09 Memor ia 22:22:51 l (finding) Sudden Meghna nn (finding) Active Problem 03/09/2019 [facility] MEC COMPL Diagnosis Active 2019-03-11 Memoria OF 22:05:00 l SURGICALLY [facility] Braulio n CREATED COMPL OF ARTERIO SURGICALLY CREATED ARTERIO Active [facility] UNSP COMP Diagnosis Active 2019-03-04 Memoria OF CARDIAC 17:22:00 l AND UNSP [place] VASCULAR COMP OF PROSTH CARDIAC AND VASCULAR PROSTH Active [facility] TYPE 2 Diagnosis Active 2019-03-05 Mem oria DIABETES 08:15:00 l MELLITUS TYPE 2 Braulio n WITH DIABETES HYPERGLYCE MELLITUS WITH HYPERGLYCE Active [facility] PROTEINURI Diagnosis Active 2019-03-05 Memoria A, 08:15:00 l UNSPECIFIE Braulio n D PROTEINURI A, UNSPECIFIE D Active [facility] Allergies, Adverse Reactions, Alerts Allergy Allergy Status Severity Reaction(s) Onset Inactive Treating Comm ents Source Name Type Date Date Clinician No Known No Known Active Memori a Medicati Medicati l on on Ganesh Allergie Allergie s s Family History Family Member Diagnosis Comments Start Date Stop Date Source Natural brother Cirrhosis [facility] ethodist Natural brother Diabetes [facility] ethodist Natural father Heart disease Heladio Jung Natural father Hypertension Heladio Jung Natural father Stroke [facility] thodist Natural mother Diabetes [facility] thodist Natural mother Hypertension [facility] Natural mother Kidney disease [place] Jung Social History Social Habit Start Date Stop Date Quantity Comments Source Sex Assigned At [facility] ethodist Cigarettes smoked 2020-08-04 2020-08-04 [facility] current (pack per 00:00:00 00:00:00 day) - Reported Tobacco use and 2020-08-04 2020-08-04 Never used [facility] ethodist exposure 00:00:00 00:00:00 Alcohol intake 2020-08-04 2020-08-04 Current drinker [place] [facility] 00:00:00 00:00:00 of alcohol (finding) Social History 2018-12-11 2018-12-11 [facility] richelle 17:48:18 17:48:18 Alcohol Comment 2017-11-02 2017-11-02 stopped in [facility] Connecture 00:00:00 00:00:July. History of tobacco 2016-01-24 Current smoker [place] [facility] use 00:00:00 Smoking Status Start Date Stop Date Source Former smoker 2020-08-04 00:00:00 2020-08-04 00:00:00 [facility] Medications Ordered Filled Start Stop Current Ordering Indication Dosage Frequency Signature Comments Components Source Medication Medication Date Date Medication? Clinician (SIG) Name Name INSULIN 2019-09 Yes 35U QD Inject 35 [place] GLARGINE,HU 1-10 Units Methodi M.REC.ANLOG 14:41: under the s t (LANTUS 04 skin SUBQ) daily. BUMETanide 2019-09 Yes 2mg QD Take 2 mg Ho just[place] (BUMEX) 2 1-10 by mouth Method i MG tablet 14:41: daily. st 04 aspirin 2019-09 Yes 81mg QD Take 81 mg [place] (ECOTRIN) 1-10 by mouth Method i 81 MG 14:41: daily. st enteric 04 coated tablet nitroglycer 2019-[address] 0.4 [place] in 1-10 mg under Methodi (NITROSTAT) 14:41: the tongue st 0.4 MG SL 04 every 5 tablet (five) minutes as needed for chest pain. albuterol 2019-09 Yes ProAir HFA [place] (PROAIR 1-10 90 Methodi HFA) 90 14:41: mcg/actuat st mcg/actuati 04 ion on inhaler aerosol inhaler gabapentin 2019-09 Yes 400mg QD Take 400 [place] (NEURONTIN) 1-10 mg by Methodi 300 mg 14:41: mouth st capsule 04 nightly. PATIENT NOW TAKES 400 ONCE DAILY atorvastati 2019-09 Yes atorvastat Leija n (LIPITOR) 1-10 in 10 mg Meth megan 10 MG 14:41: tablet st tablet 04 clopidogrel 2019-09 Yes clopidogre Leija (PLAVIX) 75 1-10 l 75 mg Metho di mg tablet 14:41: tablet st 04 traZODone 2019-09 Yes 100mg QD Take 100 [address]cha [address] (DESYREL) 1-10 mg by Methodi 100 MG 14:41: mouth st tablet 04 nightly. zolpidem 2019- No 10mg QD Take 10 mg [place] (AMBIEN) 5 03-2602 by mouth Meth megan MG tablet 12:21: 00:00 nightly as s t 48 :00 needed for sleep. pregabalin 2019- No 25mg Q.5D Take 25 mg Leija (LYRICA) 25 03-2602 by mouth 2 M ethodi MG capsule 12:21: 00:00 (two) st 25 :00 times a day. losartan 2019- No 100mg QD Take [address] (COZAAR) 03-26-02 mg by Methodi 100 MG 12:20: 00:[address] tablet 52 :00 daily. acetaminoph 2018-09- No TK 1 T PO Yantis en-codeine 0-06 02 BID PRF Metho di (TYLENOL 00:00: 00:[address] WITH 00 :00 CODEINE #3) 300-30 mg per tablet Acetaminoph Yes 1 tab, PO, Memoria en 300 MG / 6-13 Q8H, PRN l Codeine 21:50: Pain Score Herm helen Phosphate 00 6-10, X 7 30 MG Oral day, # 28 Tablet tab, 0 [Tylenol Refill(s) with Codeine #3] zolpidem 10 Yes 10 mg = 1 M emoria mg oral 6-13 tab, PO, l tablet 21:30: Bedtime, [place] 00 PRN as needed for insomnia, X 30 day, # 30 tab, 0 Refill(s) predniSONE Yes 60 mg = 3 Me moria 20 mg oral 6-13 tab, PO, l tablet 21:30: Daily, [place] 00 Take 3 tablets for 60 mg dose, X 4 day, # 12 tab, 0 Refill(s), Pharmacy: [facility] pantoprazol Yes 40 mg = 1 M emoria e 40 mg 6-13 tab, PO, l oral 21:30: Before Ganesh enteric 00 Breakfast, coated # 30 tab, tablet 0 Refill(s), Pharmacy: [facility] Colchicine Yes 0.6 mg = 1 M emoria 0.6 MG Oral 6-13 tab, PO, l Tablet 21:30: BID, # 60 Braulio n 00 tab, 0 Refill(s), Pharmacy: [facility] Levofloxaci Yes 500 mg = 1 Memoria n 500 MG 6-13 tab, PO, l Oral Tablet 21:30: Q24H, X 10 [place] [Levaquin] 00 day, # 10 tab, 0 Refill(s), Pharmacy: [facility] Protonix No Notes: Memoria 6-13 Tablet l 12:30: should not [place] 00 be chewed or crushed. (Same as: Protonix) Solu-Medrol No Notes: Fernie edi 6-13 (Same l 02:00: as:Solu-ME [place] 00 DROL, A-Methapre d) Colchicine No 0.6 mg, 1 Me moria 6-12 tab, l 19:53: Route: PO, [place] 00 Drug form: TAB, BID, Dosing Weight 92.227, kg, Priority: NOW, Start date: 03/06/19 14:53:00 CDT, Duration: 30 day, Stop date: 04/05/19 9:00:00 CDT tamsulosin No Notes: Memor ia 6-12 (Same As: l 02:00: Flomax) "Do Not Crush" atorvastati No Notes: Fernie edi n 6-12 (Same As: l 02:00: Lipitor) Epogen No Notes: Memoria 6-11 (Same as: l 22:00: Procrit) epoetin olamide 26473 unit/1 ml VL. For dialysis use only. (Procrit) WASTE: F/P - Red; E -Red MEDICATION WASTE Product Size: 53797 unit Product Wasted: ___ unit vancomycin No Notes: Memor ia + Sodium 6-11 TIME l Chloride 22:00: CRITICAL Meghna nn 0.9% IV 100 00 MEDICATION mL (Same As: Vancocin) For adult patients only: Round to nearest 250 mg per Medical Staff approval Lactulose No Notes: Memori a 667 MG/ML 6-11 (Same l Oral 22:00: as:Chronul [place] Solution 00 ac) Fluticasone No Notes: Fernie edi propionate 6-11 (Same as: l 0.05 22:00: Flonase) Ganesh MG/ACTUAT 00 Metered Dose Nasal [place] [Flonase] Fluticasone Yes 1 spray, Me moria propionate 6-11 NASAL, l 0.05 19:55: BID, # 16 Ganesh MG/ACTUAT 00 gm, 0 Metered Refill(s) Dose Nasal [place] [Flonase] prasugrel No 60kg, Memori a 6-11 without l 14:00: history of Ganesh 00 TIA/Ischem ic stroke and without likely bypass surgery Veltassa No 8.4 gm, Memori a 6-11 Route: PO, l 14:00: Drug form: [place] 00 PDR/REC, Daily, Dosing Weight 92.227, kg, Start date: 03/05/19 9:00:00 CDT, Duration: 30 day, Stop date: 04/03/19 9:00:00 CDT gabapentin No Notes: Memor ia 300 MG Oral 6-11 (Same as: l Capsule 14:00: Neurontin) Herm helen 00 Insulin No Notes: Memoria Glargine 6-11 [...] ia 6-11 Give with l 14:00: food. [place] 00 (Same As: Coreg) Aspirin 81 No Notes: Do Me moria MG Enteric -11 not crush l Coated 14:00: or chew. Ganesh Tablet 00 (Same As: Ecotrin) Nephro-Dana No Notes: Fernie edi Rx - (Same as: l 14:00: Nephro-Vit Ganesh 00 e Rx and Diatx) Give with food. Bumetanide No Notes: Memor ia 6-11 (Same As: l 13:00: Bumex) NIFEdipine No Notes: Memor ia 30 mg oral - (Same as: l tablet, 12:30: Adalat CC, Herm helen extended Procardia release XL) Give on empty stomach. Take 1 hour before or 2 hours after meal; "Avoid grapefruit and grapefruit juice". Do not crush Benadryl No 25 mg, 1 Memor ia 6-11 tab, l 09:26: Route: PO, Drug form: TAB, TID, Dosing Weight 92.227, kg, PRN Itching, Start date: 03/05/19 4:26:00 CDT, Duration: 30 day, Stop date: 04/04/19 4:25:00 CDT heparin No Notes: Memoria 6-11 porcine l 05:00: heparin zolpidem No Notes: Memoria -11 (Same As: l 04:03: Ambien) tramadol No Notes: Not Mem oria hydrochlori - to exceed l de 50 MG 03:42: 400mg/day. Her mcintyre Oral Tablet 00 (Same As: Ultram) tizanidine No Notes: Memor ia 6-11 (Same As: l 03:42: Zanaflex) Nitroglycer No Notes: Fernie edi in 0.4 MG 03-05 (Same l Sublingual 03:42: as:Nitroqu H ermann Tablet 00 ick, Nitrostat) "Do Not Crush" Sublingual tablet Eszopiclone No 3 mg, Memor ia 6-11 Route: PO, l 03:42: Drug form: [place] 00 TAB, Bedtime, Dosing Weight 92.227, kg, PRN Insomnia, Start date: 03/04/19 22:42:00 CDT, Duration: 30 day, Stop date: 04/03/19 22:41:00 CDT Albuterol No Notes: Memori a 0.833 MG/ML 6-11 (Same as: l / 03:42: Duoneb) [place] Ipratropium 00 [place] 0.167 MG/ML Inhalant Solution Acetaminoph No Notes: Fernie edi en 325 MG / 6-11 (Same as: l Hydrocodone 03:13: [place] Meghna nn Bitartrate 00 325/5) Do 5 MG Oral not exceed Tablet 4gm/day of [[place] acetaminop 5/325] hen. Zofran No Notes: Memoria 6-11 (Same as: l 03:13: Zofran) Ganesh MEDICATION WASTE Product Size: 4 mg Product Wasted: ___ mg Vancomycin No 1 ea, Memori a 6-11 Route: l 03:00: MISC, [place] 00 ONCALL, Dosing Weight 92.227, kg, Start date: 03/04/19 22:00:00 CDT, Duration: 10 day, Stop date: 03/14/19 21:59:00 CDT, Pharmacy to dose, ABX Indication : Skin/Soft Tissue Infection cefepime No Notes: Memoria 6-11 (Same As: l 03:00: Maxipime) Ganesh MEDICATION WASTE Product Size: 1000 mg Product Wasted: ___ mg Calcium No 125 mL, 75 Fernie edi Chloride 6-11 ml/hr, l 0.0014 02:22: Infuse [place] MEQ/ML / 00 Over: 1.7 Potassium hr, Route: Chloride IV, 125, 0.004 Drug form: MEQ/ML / SOLN, Sodium ONCE, Chloride Dosing 0.103 Weight MEQ/ML / 92.227 kg, Sodium Start Lactate date: 0.028 03/04/19 MEQ/ML 21:22:00 Injectable CDT, Stop Solution date: 03/04/19 21:22:00 CDT Insulin No Notes: Memoria Lispro 6-11 (Same as: l 02:21: Humalog) Roll in palms of hands gently; Do not shake vigorously . WASTE: F/P - Black; E - Municipal Trash Bin Stable for 28 days at room temperatur e. Expires in days from ____Date Glucagon 0 No 1 mg, Memoria 6-11 Route: IM, l 02:21: Drug form: PDR/INJ, PRN, Dosing Weight 92.227, [...] Acetaminoph No Notes: Do M emoria en -11 not exceed l 02:21: 4 gm/day. (Same [...] INHALATION l / 01:12: , Q4H, PRN [place] Ipratropium 00 Wheezing, [place] # 30 ea, 1 0.167 MG/ML Refill(s) Inhalant Solution NIFEdipine Yes 30 mg = 1 Me moria 30 mg oral 6-11 tab, PO, l tablet, 01:12: Before [place] extended 00 Breakfast, release # 30 tab, 0 Refill(s) Acetaminoph No 1 tab, PO, Memoria en 300 MG / 6-11 Q8H, PRN l Codeine 01:12: Pain Score Herm helen Phosphate 00 6-10, 0 30 MG Oral Refill(s) Tablet [Tylenol with Codeine #3] patiromer Yes 8.4 gm, Memor ia 8400 MG 6-11 PO, Daily, l Powder for 01:12: 0 Ganesh Oral 00 Refill(s) Suspension [Veltassa] atorvastati Yes 10 mg = 1 M emoria n 10 mg 6-11 tab, PO, l oral tablet 01:12: Bedtime, # [place] 00 90 tab, 0 Refill(s) Lactulose Yes [...] not exceed l Hydrocodone 18:41: 4gm/day of [place] Bitartrate 00 acetaminop 10 MG Oral hen. Tablet (Same as: [place] 325/10) Morphine 2019-0 No 2 mg, 1 Memori a 5-30 [...] (ANES) 5-30 Drug form: l 18:07: SOLN, [place] 00 ONCE, Stop date: 02/21/19 13:07:00 CDT ondansetron 2019-0 No Route: IV, Memoria (ANES) 5-30 Drug form: l 17:42: INJ, ONCE, Stop date: 02/21/19 12:42:00 CDT ceFAZolin 2018-0 No Route: IV, moria (ANES) 5-30 Drug form: l 17:42: INJ, ONCE, Stop date: 02/21/19 12:42:00 CDT vancomycin 2018-0 No Route: IV, Delaney youngria (ANES) 1000 5-30 Drug form: l mg 17:10: INJ, Start date: 02/21/19 12:10:00 CDT, Stop date: 02/21/19 13:10:00 CDT Sodium 2018-0 No Route: IV, Memor ia Chloride 5-30 Total l 0.9% IV 16:52: Volume: Ganesh (ANES) 1000 00 1,000, mL Start date: [...] 03/23/19 9:48:00 CDT, 2.11, m2 Ancef + 2018- No Notes: Memoria sterile 5-07 (Same As: l water 20 mL 16:00: Ancef, Herm helen Kefzol) MEDICATION WASTE Product Size: 1000 mg Product Wasted: ___ mg Vancomycin 2018-0 No 2001 mg: Me moria 5-07 infuse l 16:00: over 2.5 [place] hours For adult patients only: Round to [...] cap, PO, l Capsule 23:13: Daily, # Braulio n 43 30 cap, 3 Refill(s), Pharmacy: [facility] [id number] gabapentin 2018-0 No See Memoria 300 MG Oral 4-17 Instructio l Capsule 14:12: ns, 1 cap Meghna nn 00 PO after dialysis, # 30 cap, 2 Refill(s), Pharmacy: [facility] [id number] Ondansetron 2018-0 No 4 mg, Memor ia 12-20 Route: l 14:13: IVP, ONCE, Ganesh 00 Dosing Weight 90.966, kg, PRN Nausea & Vomiting, Start date: 12/20/18 9:13:00 CDT Meperidine 2018-0 No 12.5 mg, Mem oria 12-20 Route: l 14:13: IVP, [place] 00 Q30Min, Dosing Weight 90.966, kg, PRN Other -See Comment, For shivering, Start date: 12/20/18 9:13:00 CDT, Duration: 2 doses or times, Stop date: Limited # of times Hydralazine 2018-0 No 10 mg, Fernie edi 12-20 Route: l 14:13: IVP, [place] 00 Q20Min, Dosing Weight 90.966, kg, PRN Elevated BP, Start date: 12/20/18 9:13:00 CDT, Duration: 2 doses or times, Stop date: Limited # of times Naloxone 2019-0 No 0.4 mg, Memori a 12-20 Route: l 14:13: IVP, Ganesh 00 Q2MIN, Dosing Weight 90.966, kg, PRN Narcotic Reversal, Start date: 12/20/18 9:13:00 CDT, Duration: 8 doses or times, Stop date: Limited # of times Diphenhydra 2019-0 No 12.5 mg, Me moria mine 12-20 Route: l 14:13: IVP, Drug Ganesh 00 form: INJ, Q6H, Dosing Weight 90.966, [...] Memori a 12-20 Route: l 14:13: IVP, [place] 00 Q5Min, Dosing Weight 90.966, kg, PRN Elevated BP, Start date: 12/20/18 9:13:00 CDT, Duration: 5 doses or times, Stop date: Limited # of times Acetaminoph 2019-0 No 1,000 mg, M emoria en 12-20 Route: PO, l 14:13: Drug form: Ganesh 00 TAB, ONCE, Dosing Weight 90.966, kg, PRN Pain Score 1-3, Start date: 12/20/18 9:13:00 CDT Fentanyl 2018-0 No 50 Memoria 12-20 microgram, l 14:13: Route: IVP, Q5Min, Dosing Weight 90.966, kg, [...] oria ne 12-20 Route: l 14:13: IVP, [place] 00 Q5Min, Dosing Weight 90.966, kg, PRN Pain Score 7-10, Start date: 12/20/18 9:13:00 CDT, Duration: 4 doses or times, Stop date: Limited # of times Acetaminoph No Notes: Do M emoria en 325 MG / 12-20 not exceed l Hydrocodone 14:09: 4gm/day of [place] Bitartrate 00 acetaminop 10 MG Oral hen. Tablet (Same as: [place] 325/10) Acetaminoph No Notes: Fernie edi en 325 MG / 12-20 (Same as: l Hydrocodone 14:09: [place] Meghna nn Bitartrate 00 325/5) Do 5 MG Oral not exceed Tablet 4gm/day of acetaminop hen. Sodium No 500 mL, Memoria Chloride 12-20 Rate: 25 l 0.9% IV 500 12:38: ml/hr, Herm helen mL 00 Infuse over: 20 hr, Route: IV, Dosing Weight 90.966 kg, Total Volume: 500, Start date: 12/20/18 7:38:00 CDT, Duration: 1 day, Stop date: 12/21/18 7:37:00 CDT, 2.11, m2 prasugrel Yes 10 mg, PO, Me moria - Daily, 0 l 12:32: Refill(s) tamsulosin Yes 0.4 mg = 1 M emoria 0.4 mg oral 12-20 cap, PO, l capsule 12:31: Daily, # Braulio n 00 30 cap, 0 Refill(s) carvedilol Yes 6.25 mg, Mem oria - PO, BID, 0 l 12:31: Refill(s) [place] Vancomycin No 2001 mg: Me moria - infuse l 18:00: over 2.5 [place] 00 hours For adult patients only: Round to nearest 250 mg per Medical Staff approval MEDICATION WASTE Product Size: 1000 mg Product Wasted: ___ mg Ancef + No Notes: Memoria sterile 3-19 (Same As: l water 20 mL 18:00: Ancef, Herm helen 00 Kefzol) MEDICATION WASTE Product Size: 1000 mg Product Wasted: ___ mg Vitamin B1 2019-0 Yes Daily, 0 Mem oria 3-19 Refill(s) l 17:51: [place] 00 bumetanide 2018- Yes 2 mg = 1 Mem oria 2 mg oral 3-19 tab, PO, l tablet 17:51: BID, 0 Ganesh 00 Refill(s) Acidophilus 2019-0 Yes Daily, 0 [...] Memoria 3-19 PO, 0 l 17:50: Refill(s) [place] 00 NIFEdipine Yes 30 mg = 1 Me moria 30 mg oral 3-19 tab, PO, l tablet, 17:50: Daily, 0 Braulio n extended 00 Refill(s) release sevelamer Yes 800 mg = 1 Me moria carbonate 3-19 tab, PO, 0 l 800 MG Oral 17:49: Refill(s) H ermann Tablet 00 [Renvela] pregabalin 2018- Yes 50 mg = 1 Me moria 50 MG Oral 3-19 cap, PO, l Capsule 17:49: BID, 0 Ganesh [Lyrica] 00 Refill(s) Insulin Yes 35 units, Memor ia Glargine 3-19 SUB-Q, l 100 UNT/ML 17:49: Daily, 0 Her mcintyre Injectable 00 Refill(s) Solution [Lantus] prasugrel 2019- No 10mg QD Take 1 [place] (EFFIENT) 11-03 tablet (10 Met hodi 10 mg 00:00: 00:00 mg total) st tablet 00 :00 by mouth daily for 30 days. VIOS Yes See Admin [place] AEROSOL 10-01 Instructio Method i DELIVERY 00:00: ns. st SYSTEM 00 device tamsulosin 2017-09 Yes .4mg QD Take 1 [place] (FLOMAX) 11-20 capsule Methodi 0.4 mg 00:00: (0.[address] capsule 00 total) by mouth daily. L. 2017-09- No 2{capsu QD Take 2 Leija acidophilus 11-20 le} capsules Met adal saldivar rham 00:00: 00:00 by mouth s t nosus (BIO 00 :00 daily. K PLUS) 50 billion cell capsule,del ayed release(DR/ EC) capsule fluticasone 2017-09 Yes 100ug QD 2 sprays [...] Source Name Name FLUCELVAX QUAD PF 2018-08-09 [facility] 00:00:00 [facility]ational Vital Signs Vital Name Observation Time Observation Value Comments Source Systolic blood 2020-08-04 14:39:00 197 mm[Hg] [place] [facility] pressure Diastolic blood 2020-08-04 14:39:00 79 mm[Hg] [place] [facility] pressure Heart rate 2020-08-04 14:39:00 78 /min Heladio Jung Body height 2020-08-04 14:39:00 175.3 cm Heladio Jung Body weight 2020-08-04 14:39:00 87.544 kg Heladio Jung BMI 2020-08-04 14:39:00 28.50 kg/m2 Heladio Jung Oxygen saturation in 2020-08-04 14:39:00 91 /min Heladio Jung Arterial blood by Pulse oximetry Body temperature 2020-04-23 08:54:00 36.67 [place] [facility] Respiratory rate 2020-03-26 07:46:00 17 /min [place] [facility] Respitory Rate 2019-03-07 21:13:00 Memori al [place] Systolic (mm Hg) 2019-03-07 21:13:00 Fernie rial [place] Diastolic (mm Hg) 2019-03-07 21:13:00 Mem orial Ganesh Temperature Oral (F) 2019-03-07 21:13:00 98.2 F [facility] [place] Heart Rate 2019-03-07 21:13:00 [facility] Ganesh Respitory Rate 2019-03-07 19:58:00 Memori al [place] Respitory Rate 2019-03-07 17:06:00 Memori al [place] Systolic (mm Hg) 2019-03-07 17:06:00 Fernie rial Ganesh Diastolic (mm Hg) 2019-03-07 17:06:00 Mem orial Ganesh Heart Rate 2019-03-07 17:06:00 [facility] [place] Temperature Oral (F) 2019-03-07 17:06:00 97.6 F [facility] Systolic (mm Hg) 2019-03-07 12:10:00 [facility] Diastolic (mm Hg) 2019-03-07 12:10:00 [facility] [place] Heart Rate 2019-03-07 12:10:00 [facility] Temperature Oral (F) 2019-03-07 12:10:00 98.3 F [facility] Height 2019-03-04 22:27:00 172.72 cm [facility] Weight 2019-03-04 22:27:00 [facility] BMI Calculated 2019-03-04 22:27:00 [facility] Respitory Rate 2019-02-21 20:30:00 [facility] [place] Systolic (mm Hg) 2019-02-21 20:30:00 Fernie [facility] Diastolic (mm Hg) 2019-02-21 20:30:00 [facility] Systolic (mm Hg) 2019-02-21 19:45:00 Fernie [facility] Diastolic (mm Hg) 2019-02-21 19:45:00 [facility] Respitory Rate 2019-02-21 19:45:00 [facility] Systolic (mm Hg) 2019-02-21 19:40:00 Fernie [facility] Diastolic (mm Hg) 2019-02-21 19:40:00 [facility] Respitory Rate 2019-02-21 19:40:00 [facility] Heart Rate 2019-01-29 15:39:00 [facility] Temperature Oral (F) 2019-01-29 15:39:00 97.5 F [facility] BMI Calculated 2019-01-29 15:09:00 [facility] [place] Weight 2019-01-29 15:09:00 [facility] Height 2019-01-29 15:09:00 172.72 cm [facility] Systolic (mm Hg) 2018-12-20 15:00:00 [facility] Diastolic (mm Hg) 2018-12-20 15:00:00 [facility] Respitory Rate 2018-12-20 15:00:00 [facility] [place] Respitory Rate 2018-12-20 14:45:00 [facility] Systolic (mm Hg) 2018-12-20 14:45:00 Fernie [facility] [place] Diastolic (mm Hg) 2018-12-20 14:45:00 [facility] Respitory Rate 2018-12-20 14:30:00 [facility] [place] Systolic (mm Hg) 2018-12-20 14:30:00 [facility] Diastolic (mm Hg) 2018-12-20 14:30:00 [facility] Temperature Oral (F) 2018-12-20 12:30:00 97.3 F [facility] Height 2018-12-11 17:09:00 172.72 cm [facility] BMI Calculated 2018-12-11 17:09:00 [facility] Weight 2018-12-11 17:09:00 [facility] Temperature Oral (F) 2018-12-11 17:09:00 97.8 F [facility] Heart Rate 2018-12-11 17:09:00 [facility] Procedures Procedure Date / Time Performing Clinician Source Performed SINGLE ANTIGEN BEADS 2020-08-26 12:48:00 Beatriz Xie [facility] LUPUS ANTICOAGULANT PANEL 2020-07-08 14:11:00 Marielos Childress [facility] CARDIOLIPIN ANTIBODIES 2020-07-08 14:11:00 Marielos Childress [facility] BETA-2 GLYCOPROTEIN 1 2020-07-08 14:11:00 Marielos Childress [facility] ANTIBODY, IGG AND IGM HEXAGONAL PHOSPHOLIPID 2020-07-08 14:11:00 PetMarielos marshall [facility] DRVVC, DRVVT/DRVVC 2020-07-08 14:11:00 Marielos Childress [facility] LUPUS ANTICOAGULANT PANEL 2020-05-27 13:13:00 Zoe, Beatriz Leija [facility] HEXAGONAL PHOSPHOLIPID 2020-05-27 13:13:00 Zoe, Beatriz Barry [place] [facility] DRVVC, DRVVT/DRVVC 2020-05-27 13:13:00 Zoe, Beatriz wagner [facility] SINGLE ANTIGEN BEADS 2020-05-27 08:19:00 Zoe, Beatriz anderson [facility] PROTHROMBIN TIME WITH INR 2020-05-14 13:20:00 Zoe, Beatriz Leija [facility] PARTIAL THROMBOPLASTIN 2020-05-14 13:20:00 Zoe, Beatriz kemp [facility] TIME (PTT) THYROID STIMULATING 2020-05-14 13:20:00 Zoe, Beatriz Mcnally [facility] HORMONE SIX MINUTE WALK W/ PULSE 2020-04-23 12:51:44 Zoe, Beatriz Jung OXIMETRY CT ANGIOGRAM ABDOMEN 2020-03-26 13:30:00 Hawk Lackey PELVIS W AND OR WO CONTRAST URINE CULTURE 2020-03-26 07:36:00 Hawk Lackey COMPREHENSIVE METABOLIC 2020-03-26 07:36:00 Hawk Lackey PANEL URINALYSIS SCREEN AND 2020-03-26 07:36:00 Hawk Lackey MICROSCOPY, WITH REFLEX TO CULTURE HIV AG/AB COMBINATION 2020-03-26 07:36:00 Hawk Lackey HEPATITIS A ANTIBODY TOTAL 2020-03-26 07:36:00 Hawk Lackey HEPATITIS B CORE ANTIBODY 2020-03-26 07:36:00 Hawk Lackey ph TOTAL HEPATITIS B SURFACE 2020-03-26 07:36:00 Hawk Lackey ANTIGEN HEPATITIS B SURFACE AB, 2020-03-26 07:36:00 Hawk Lackey QUANTITATIVE HEPATITIS C ANTIBODY 2020-03-26 07:36:00 Hawk Lackey SYPHILIS TOTAL ANTIBODY 2020-03-26 07:36:00 Hawk Lackey HC COMPLETE BLD COUNT 2020-03-26 07:36:00 Hawk Lackey W/AUTO DIFF PROTHROMBIN TIME WITH INR 2020-03-26 07:36:00 Hawk Lackey ph PARTIAL THROMBOPLASTIN 2020-03-26 07:36:00 Hawk Lackey TIME (PTT) DRUG LOTT 9, SER/MOOKIE, SCRN 2020-03-26 07:36:00 Hawk Lackey ph W/RFLX TO CONF NICOTINE AND COTININE, 2020-03-26 07:36:00 Hawk Lackey SERUM LIPID PANEL 2020-03-26 07:36:00 Hawk Lackey FASTING GLUCOSE LEVEL 2020-03-26 07:36:00 Hawk Lackey PHOSPHORUS LEVEL 2020-03-26 07:36:00 Hawk Lackey LDH 2020-03-26 07:36:00 Hawk Lackey HEMOGLOBIN A1C 2020-03-26 07:36:00 Hawk Lackey CYTOMEGALOVIRUS AB, IGG 2020-03-26 07:36:00 Hawk Lackey CYTOMEGALOVIRUS AB, IGM 2020-03-26 07:36:00 Hawk Lackey DAYAMI-ORTIZ VIRUS 2020-03-26 07:36:00 Hawk Lackey ANTIBODY TEST HSV 1 & 2 GLYCOPROTEIN G 2020-03-26 07:36:00 Hawk Lackey AB, IGG HSV TYPE 1/2 COMBINED AB, 2020-03-26 07:36:00 Hawk Lackey ph IGM PARATHYROID HORMONE 2020-03-26 07:36:00 Hawk Lackey SERUM ELECTROPHORESIS 2020-03-26 07:36:00 Hawk Lackey PROSTATE SPECIFIC ANTIGEN 2020-03-26 07:36:00 Hawk Lackey ph [facility] C-PEPTIDE 2020-03-26 07:36:00 Hawk Lackey ESTIMATED GFR 2020-03-26 07:36:00 Hawk Lackey MISCELLANEOUS REFERRAL 2020-03-26 07:36:00 Hawk Lackey [facility] TEST SAB CLASS 1 & 2 WITH 2020-03-26 07:36:00 Hawk Lackey [place] [facility] DILUTIONS TTE COMPLETE, WO CONTRAST, 2019-11-05 11:36:53 Beatriz Xie [facility] W DOPPLER ([id number]) [id number] 2019-07-31 00:00:00 ENCPL 0Q5S53S 2019-07-31 00:00:00 ENCPL 7V0T68Q 2019-07-31 00:00:00 ENCPL 5M9W70T 2019-07-31 00:00:00 ENCPL 0T9Y75B 2019-07-31 00:00:00 ENCPL 5Y8Q67G 2019-07-31 00:00:00 ENCPL 7L5M46H 2019-07-31 00:00:00 ENCPL 5D8H14E 2019-07-31 00:00:00 ENCPL 9I9K98B 2019-07-31 00:00:00 ENCPL 8V4V31H 2019-07-31 00:00:00 ENCPL 1A6D01Q 2019-07-31 00:00:00 ENCPL 1Y0C04O 2019-07-31 00:00:00 ENCPL 6U1N00T 2019-07-31 00:00:00 ENCPL 7A3X85C 2019-07-31 00:00:00 ENCPL 5X2P57G 2019-07-31 00:00:00 ENCPL 9A7B24J 2019-07-31 00:00:00 ENCPL 9F9A33T 2019-07-31 00:00:00 ENCPL 8J8E99E 2019-07-31 00:00:00 ENCPL 9C4L01K 2019-07-31 00:00:00 ENCPL 3E3G89T 2019-07-31 00:00:00 ENCPL 6C6Z34P 2019-07-31 00:00:00 ENCPL 3E3A28V 2019-07-31 00:00:00 ENCPL 7S7B01K 2019-07-31 00:00:00 ENCPL Stent placement 2018-07-26 05:00:00 [facility] mcintyre Amputation of toe 2005-11-23 06:00:00 [facility] Clarita maulikhelen AVF - Pulmonary [facility] arteriovenous fistula operation Plan of Care Planned Activity Planned Date Details Comments Source Future Scheduled 2020-06-06 DIABETIC FOOT EXAM [place] [facility] 00:00:00 [code = DIABETIC FOOT EXAM] Future Scheduled 2020-04-25 INFLUENZA VACCINE [place] [facility] 00:00:00 [code = INFLUENZA VACCINE] Future Scheduled 2009 COLONOSCOPY SCREENING [place] [facility] 00:00:00 [code = COLONOSCOPY SCREENING] Future Scheduled 2009 SHINGLES VACCINES [place] [facility] 00:00:00 (#1) [code = SHINGLES VACCINES (#1)] Future Scheduled 1975 COVID-19 VACCINE (#1) [place] [facility] 00:00:00 [code = COVID-19 VACCINE (#1)] Future Scheduled 1969 DIABETES: RETINAL EYE [place] [facility] 00:00:00 EXAM [code = DIABETES: RETINAL EYE EXAM] Encounters Start End Encounter Admission Attending Care Care Encounter Source Date/Time Date/Time Type Type Clinicians Facility Department ID 2019-04-30 Outpatient MHSE MHSE [id number] MH 14:00:27 [facility] 2019-03-04 Inpatient U MHSE MED [id number] MH 17:21:00 [facility] 2020-08-26 2020-08-26 Outpatient ZOE [facility] [id number] [place] 00:00:00 00:00:00 BEATRIZ [address] 2020-08-12 2020-08-12 Outpatient ZOE [facility] [id number] [place] 00:00:00 00:00:00 BEATRIZ [address] 2020-08-04 2020-08-04 Outpatient RODOLFOYvette [facility] [id number] [place] 00:00:00 00:00:00 MARIELOS [address] 2020-08-04 2020-08-04 Outpatient YARIEL [facility] [id number] [place] 00:00:00 00:00:00 MARIELOS [address] 2020-07-08 2020-07-08 Outpatient PETKOVA, [facility] [id number] [place] 00:00:00 00:00:00 MARIELOS [address] 2020-07-08 2020-07-08 Outpatient ZOE, [facility] [id number] [place] 00:00:00 00:00:00 AHMED [address] 2020-07-08 2020-07-08 Outpatient PETKOVA, [facility] [id number] [place] 00:00:00 00:00:00 MARIELOS [address] 2020-07-08 2020-07-08 Outpatient PETKOVA, [facility] [id number] [place] 00:00:00 00:00:00 MARIELOS [address] 2020-05-27 2020-05-27 Outpatient ZOE, [facility] [id number] [place] 00:00:00 00:00:00 AHMED [address] 2020-05-27 2020-05-27 Outpatient ZOE, [facility] [id number] [place] 00:00:00 00:00:00 AHMED [address] 2020-05-14 2020-05-14 Outpatient ZOE, [facility] [id number] [place] 00:00:00 00:00:00 AHMED [address] 2020-04-23 2020-04-23 Outpatient ZOE, [facility] [id number] [place] 00:00:00 00:00:00 AHMED [address] 2020-04-23 2020-04-23 Outpatient ZOE, [facility] [id number] [place] 00:00:00 00:00:00 AHMED [address] 2020-03-26 2020-03-26 Outpatient HOBEIKA, [facility] [id number] [place] 00:00:00 00:00:00 HAWK [address] 2020-03-26 2020-03-26 Outpatient ZOE, [facility] [id number] [place] 00:00:00 00:00:00 AHMED [address] 2020-03-26 2020-03-26 Outpatient THAYER, [facility] [id number] [place] 00:00:00 00:00:00 TC [address] 2020-03-26 2020-03-26 Outpatient HOBEIKA, [facility] [id number] [place] 00:00:00 00:00:00 HAWK [facility] 2020-03-26 2020-03-26 Outpatient ELIN, [facility] [id number] [place] 00:00:00 00:00:00 HAWK [facility] 2019-11-05 2019-11-05 Outpatient ZOE [facility] [id number] [place] 00:00:00 00:00:00 AHMED [facility] 2019 2019-06-14 Inpatient LEVAR, [facility] [id number] [place] 00:00:00 00:00:00 SHIVA 919 [facility] 2019-03-04 2019-03-07 Outpatient Rolan Rice MHSE MHSE [id number] 17:21:00 18:43:00 Robert Loera 2019-02-21 2019-02-21 Outpatient Joseph, MHSE MHSE [id number] 11:31:00 15:41:00 Stephan Jermaine Brown 2019-02-21 2019-02-21 Outpatient MHSE MHSE [id number] MH 11:31:00 11:31:00 [facility] 2019-01-31 2019-01-31 Outpatient Camille, [facility] M[facility] [id number] 10:15:00 10:15:00 Juventino Edward 2019-01-15 2019-01-16 Outpatient MHMISCHER M[facility]ISCHER [id number] 14:19:00 23:59:59 01 2018-12-20 2018-12-20 Outpatient Joseph MHSE MHSE [id number] 07:30:00 10:08:00 Stephan Dieudonne Kevin Results Test Description Test Time Test Comments Results Result Comments Source Single antigen beads 2020-09-02 11:04:23 Test Item Value Reference Range Interpretation Comme nts SAB serum ID (test code = 5866) [id number] SAB serum collection D&T (test code = 5867) 08/26/2020 12:48 PM SAB class I antibody assignment (test code = Negative 5870) SAB cPRA class I (test code = 5868) 0 SAB class II antibody assignment (test code = Negative 5871) SAB cPRA class II (test code = 5869) 0 Case number (test code = 6996707) [id number] Single antigen beads (test code = 4604) See link below for PDF Lab Report Heladio JungHexagonal csbftbdfsrvm1872-44-73 18:10:40 Test Item Value Reference Range Interpretation Comments Tube 1 - 2 (test code = 98438-3) 16.7 0.0- 11.0 sec H LA interpretation (test code = Positive 26612-4) Lab Interpretation (test code = Abnormal 05603-9) Heladio JungDRVVC, DRVVT/EKWHP2513-92-53 12:37:59 Test Item Value Reference Range Interpretation Comments DRVVT (test code = 48.8 29.0- 46.[address] has been 6303-2) modified from [employer] manufacturers instructions. The performance characteristics were determined by Clarita denton in a manner consiste nt with CLIA requiremen ts. This test has n ot been cleared or appr brennan by the U.S. Food a nd Drug Administration. DRVVC (test code = 33.0 [place] 408[address]-6) modified from [employer] manufacturers instructions. The performance characteristics were determined by Clarita denton in a manner consiste nt with CLIA requiremen ts. This test has n ot been cleared or appr brennan by the U.S. Food a nd Drug Administration. DRVVT/DRVVC ratio 1.48 0.00- 1.22 sec H (test code = 54164-1) Lab Interpretation Abnormal (test code = 38882-4) Heladio JungLupus anticoagulant rlgpz4631-13-60 12:37:35 Test Item Value Reference Range Interpretation Comments Prothrombin time (test 13.2 11.5- 14.5 sec code = 5902-2) INR (test code = 1.0 [facility] 790[facility]-7) Normalized Rati o (INR) is a therapeuti c monitoring tool for patients who ar e stable on oral anticoa gulant therapy. An INR of 2.0-3.0 is sugg ested for deep vein thrombosis/pulm onary embolism. PTT (test code = 35.0 23.0- 36.0 sec PTT thera peutic range 41507-4) for unfractiona parveen heparin is61.0- 112.0 seconds which corresponds to Anti-Xa0.3-0.7 U/ml. PTT lupus 40.5 27.0- 38.0 sec H Lupus anticoa gulant anticoagulant (test (LA) antonio dodd consists of code = 16023-2) PT, PTT, PTT -LA, and DRVVT. If the P TT-LA is above the анна l range, the hexagonal phospholipid wi ll be performed. If t he DRVVT is abovethe nor mal range, the DRVV C confirmatory te st will be performed.A normal result for both the DRVVT and the P TT-LA means the patie nt is negative for torres pus anticoagulant. The patient is cons idered positive for torres pus anticoagulant i f either the RatioSCR/CO NF or the hexagonal phospholipid is high (positive) on t wo occassions at l east six weeks apart. Cl inical confirmation is also required for di agnosis. DRVVT (test code = 48.8 29.0- 46.[address] has been 6303-2) modified from t he manufacturers instructions. The performance characteristics were determined by Clarita denton in a manner consiste nt with JUSTINEIA rocío ts. This test has n ot been cleared or appr brennan by the U.S. Food a nd Drug Administration. Lab Interpretation Abnormal (test code = 54761-5) Heladio JungCardiolipin [id number] 20:19:19 Test Item Value Reference Range Interpretation Comments Cardiolipin IgG (test 7 0- 14 GPL Negati ve <15 GPL code = 3181-5) Indeterminat e 15-20 GPL Positive >2 0 GPL Cardiolipin IgM (test 16 0- 12 MPL H Negati ve <13 MPL code = 3182-3) Indetermina te 13-20 MPL Positive > 20 MPL Lab Interpretation Abnormal (test code = 08444-6) Heladio JungBeta-2 glycoprotein 1 antibody, IgG and [id number] 20:19:19 Test Item Value Reference Range Interpretation Comments Beta-2 glycoprotein 1 <9.4 0.0-20.0 Negati ve =<20.0 antibody, IgG (test code SGU Positive >20.0 SGU = 55793-7) Beta-2 glycoprotein 1 <9.4 0.0-20.0 Negati ve =<20.0 antibody, IgM (test code SMU Positive >20.0 SMU = 94222-2) Heladio Huizarix minute walk w/ pulse [id number] 12:51:44 Test Item Value Reference Range Interpretation Comments Heart Rate at Rest (test code = 59 1/min 5603) SPO2 at Rest (test code = 5604) 96 % BP Systolic at Rest (test code = 180 mmHg 5605) BP Diastolic at Rest (test code = 77 mmHg 5606) Supplemental O2 at Rest (test code = 0 L/min 5607) Heart Rate after 1 minute (test code 63 1/min = 5608) SPO2 after 1 minute (test code = 95 % 5609) Supplemental O2 after 1 minute (test 0 L/min code = 5612) Heart Rate after 2 minutes (test 71 1/min code = 5613) SPO2 after 2 minutes (test code = 94 % 5614) Supplemental O2 after 2 minutes 0 L/min (test code = 5617) Heart Rate after 3 minutes (test 75 1/min code = 5618) SPO2 after 3 minutes (test code = 93 % 5619) Supplemental O2 after 3 minutes 0 L/min (test code = 5622) Heart Rate after 4 minutes (test 81 1/min code = 5623) SPO2 after 4 minutes (test code = 93 % 5624) Supplemental O2 after 4 minutes 0 L/min (test code = 5627) Heart Rate after 5 minutes (test 85 1/min code = 5628) SPO2 after 5 minutes (test code = 92 % 5629) Supplemental O2 after 5 minutes 0 L/min (test code = 5632) Six Minute Walk Distance in m (test 380 m 405.45-711.45 code = 5633) Heart Rate after 6 minutes (test 87 1/min code = 5634) Highest Heart Rate (test code = 87 1/min 5635) SPO2 after 6 minutes (test code = 93 % 5636) Lowest SpO2 (test code = 5637) 92 % BP Systolic after 6 minutes (test 204 mmHg code = 5639) BP Diastolic after 6 minutes (test 85 mmHg code = 5640) Supplemental O2 after 6 minutes 0 L/min (test code = 5641) Lap Count (test code = 5642) 9 Six Minute Walk Distance Predicted 558 (test code = 5645) Heladio JungCTA Abdomen Pelvis W And Or Wo Jnucekgx0637-46-59 14:05:12Hm Interface, Radiology Results - 03/26/2020 2:08 PM CDTEXAMINATION: CT ANGIOGRAM ABDOMENPELVIS W AND OR WO CONTRASTCLINICAL HISTORY: N18.6 End stage renal disease, Renal Transplant EvaluationTECHNIQUE: Multiple CT angiographic images of the abdomen and pelvis were obtained during intravenous administration of contrast. Multiple computerized reformatted images as well as 3-D volume rendered images were also obtained. CT imaging was performed with iterative reconstruction techniques and/or automated exposure control to reduce radiation dose.COMPARISON: None.FINDINGS:The abdominal aortais of normal course and caliber throughout its length, with only trace infrarenal aortic nonflow limi ting atherosclerosis/arteriosclerosis.Enrollment Coordinator aortic diameters:Diaphragmatic hiatus: 2.3 cmLevel of renal arteries: 1.9 cmDistal infrarenal segment: 1.6 cmCeliac, SMA and LULY are patent without stenosis. [place] renal arteries are unremarkable.Iliac arteries:Right common iliac: Mild medial wall calcification without stenosis. Diameter 1.2 cmLeft common iliac: Normal. Diameter 1.1 cmRight external iliac: NormalDiameter 0.8 cmLeft external iliac: Normal. Diameter 0.8 cmModerate atherosclerosis and arteriosclerosis of both internal iliac arteries and associated divisions. Common femoral and super ficial femoral artery segments are patent. There is arteriosclerosis predominant in the muscular branches of the profunda femoris and SFA.Systemic veins are grossly unremarkable.Other findings:Minimal basilar dependent atelectasis. Lung bases otherwise clear. Cardiomegaly without pericardial effusion.Liver: NormalGallbladder: CholecystectomyPancreas: Mild fatty infiltration; otherwise, normal.Spleen:NormalAdrenal glands: NormalKidneys: Bilateral cortical atrophy. Otherwise, normalUreters and urinary bladder: Normal. The urinary bladder is mostly decompressed.Prostate and seminal vesicles: There isarteriosclerosis of the penile arteries calcification of the seminal vesicles.Bowel: Normal caliberPeritoneum: NormalLymph nodes: There is a minimally prominent bilateral inguinal and right external iliac chain nodes which are likely reactive. Right external iliac chain (image 151, series 2) measures up to 1.2 cm short axis, and has a well appearing fatty hilum. No additional suspicious lymphadenopath y.Skeleton: Intact. Multilevel degenerative disc disease. L2 superior endplate insufficiency fracture, chronic in appearance. Multilevel facet arthropathy.Soft tissues: Nonspecific soft tissue thickening at the umbilicus of indeterminate clinical significance. Otherwise, normal. IMPRESSION:Mild jjz-lfys-lztjtpro atherosclerosis and arteriosclerosis of the aorta and iliac arteries as described.[facility]-[id number] MethodistEchocardiogram complete w contrast and 3D if oxknnt3979-11-69 17:34:00Interface, Radiology Results In - 11/06/2019 5:35 PM HOUSEHOLD APPLIANCE REPAIRER Echocardiography Report [id number] [place] [address] Pat.Name: MARNIE LYLES Pat.ID: [id number].Date: 11/05/2019 Refer.MD: BEATRIZ XIE Exam Time: 10:23:00 AM Study Type:Routine Echo Height: 69in Weight: 202lb BSA: 2.08 m2 Age: 9 1960,59Y Sex: MALE BP: 178/77 HR: 65 bpm Sonogrphr: Marielos Middleton [facility], Kelley Franco StudentPat. Stat.:Outpatient Study Status:Final Echo Event ID:[id number] Order ID: [id number] Reason for Study:Renal Transplant EvaluationHistory / Clinical:Diabetes, HypertensionProcedures: 2D Echo, Colorflow Doppler, [facility] SUMMARY: LV EF is normal. Estimated EF is 55-59%.RV systolic function is normal. FINDINGS: LV: LV [...] TR jet to estimate PA systolic pressure. -MEASUREMENTS: 2DParasternal Long Gila Ao An 1.8 cm LVPWd 1.1 cm Ao Rtd 3.5 cm Index 1.7 cm/m2 LA Ds 5 cm IVSd 1.2 cm RWT 0.42 LVIDd 5.3 cm Index 2.5 cm/m2 LV Mass 242 g (122-174) LVIDs 3.3 cm LVM Index 116 g/m2 LV%fs 38 % LVOT 1.8 cm LA Sng Plane LA Area 24 cm2 (8.8-23.4) LAVol 76 ml Index 36 ml/m2 LA LngAx 6.4 cm LVOT LVOT Area 2.7 cm2 DOPPLERLVOT Stroke Vol LVOT TVI 33 cm HR 65 bpm LVOT LVOT SV 87 ml LVOT CO 5.6 l/min SVi 42 ml/m2 LVOT CI 2.7 l/m/m2 Signed 11/06/2019 05:34 Gloria Steinberg M.D.[place] MethodistCHEM [id number] 20:06:002.1 [facility]XjguupkOMHXOVVZCL8301-17-90 20:06:00 Test Item Value Reference Range Interpretation Comments INR (test code = INR) 0.99 1 0.85-1.17 [facility] RockWjusokoBRZPWSODIB0007-02-58 20:06:00 Test Item Value Reference Range Interpretation Comments PT (test code = PT) 12.9 s 12.0-14.7 [facility] RockVnwmyqnKOQZJCHZCX9178-62-81 20:06:00 Test Item Value Reference Range Interpretation Comments PTT (test code = PTT) 43.3 s 22.9-35.8 [facility] TqwjcujBRYIEFYYVT3895-05-54 20:06:00>100[facility] HermannIMMUNOLOGY 2019-03-06 20:06:00<0.5[facility] HsedvxtIYSPUISAWD0464-20-64 20:06:00<10 [facility] VeiqnglJRNJYIYMMG8833-78-16 20:06:34871.0[facility] HermannCHEM PANEL 2019-03-06 18:38:0013[facility] HermannCHEM KGZLO7632-57-39 18:38:004.7[facility] HermannCHEM ZKDRZ0595-98-61 18:38:88902Szfifbcl HermannCHEM UGUHN8629-61-03 18:38:004.69[facility] HermannCHEM YCGAG5017-07-55 18:38:66860Pvtmzwjt HermannCHEM QVKTM0075-08-23 18:38:78140Bwspvdsc HermannCHEM ZWGRH0341-55-77 18:38:0015 [facility]annCHEM IEKJL7846-85-43 18:38:0024[facility] HermannCHEM PANEL 2019-03-06 18:38:008.5[facility] HermannCHEM WHFSD6232-48-89 18:38:0015.7[facility] XxinnkaJUVKPWOSZC8204-70-95 18:38:000.3[facility] LnflgkhIZVNFHPVPS9883-83-71 18:38:000.1[facility] XtsgcddLSCDZHUHCH9054-65-86 18:38:003.7[facility] MZXDVLVDHX9686-47-50 18:38:000.8[facility] XutbeneCFXVNWNNTZ7970-87-27 18:38:000.5 [facility] YwtuxhiPHNZQVEDUW2228-86-09 18:38:0015.8[facility] HermannHEMATOLOGY 2019-03-06 18:38:0068.7[facility] StfjuzgBSUGWLUUZI8627-99-01 18:38:001.9[facility] YfkagaoOIYUJEERXJ5560-25-46 18:38:004.9[facility] ItfdmfaYVFMJBSIEV8020-35-66 18:38:008.7[facility] NrtzkejSZQRXGIIKX5712-93-90 18:38:0015.4[facility] FQWRGHHIWT3470-25-33 18:38:00 Test Item Value Reference Range Interpretation Comments MCH (test code = MCH) 30.1 pg 27.0-31.0 [facility] UucwdiqAGBZZWXCNB8677-96-72 18:38:89419Ibzzduwn HermannHEMATOLOGY 2019-03-06 18:38:009.6[facility] RsrquzyVMPETSUXRO0523-07-64 18:38:0032.6[facility] YfdcetgKEQURZYDKV8020-41-02 18:38:0029.4[facility] XmuiwqjXPLMGDHDAU9832-02-79 18:38:0092.2[facility] AeascpzTWIGBXZAGB6464-41-78 18:38:007.2[facility] ONCVPEINGJ8171-11-58 18:38:003.19[facility] EushgskSLIDATOVUB0535-00-55 18:38:00 5.4[facility] LtmvdjaFKSGLDAARY4250-36-04 13:30:00Negative *NA*(03/05/19 8:30 AM) [facility]ICIN:SUSC:PT:ISOLATE:ORDQN:WKL9027-49-24 06:40:00 Citrobacter koseriMemorial HermannGENTAMICIN:SUSC:PT:ISOLATE:ORDQN:FPV1335-01-98 06:40:00Pseudomonas aeruginosaMem[facility] GENTAMICIN:SUSC:PT:ISOLATE:ORDQN:LRF9074-52-80 06:40:00Klebsiella pneumoniae ssp pneumoniaeMemorial HermannGENTAMICIN:SUSC:PT:ISOLATE:ORDQN:OGC8510-22-20 06:40:00Enterobacter cloacaeMemorial HermannCHEM UKSIS9282-43-83 03:51:008.1 [facility]annCHEM PUPCQ1385-04-83 03:51:000.8[facility] HermannCHEM PANEL 2019-03-05 03:51:0019[facility] HermannCHEM UUACI4988-06-54 03:51:000.4[facility]annCHEM VHKRZ8999-66-63 03:51:004[facility]annCHEM QPWJF4942-73-27 03:51:0015[facility]annCHEM BRXUL4066-91-85 03:51:002.5[facility]annCHEM EGHWS4630-32-83 03:51:006.0[facility]annCHEM BHPWM2471-79-26 03:51:61703 [facility]annCHEM CAIKF2420-54-48 03:51:0012.60[facility]annCHEM PANEL 2019-03-05 03:51:0055[facility]annCHEM IZBMZ5205-28-79 03:51:98995Utroxnhs HermannCHEM MJPCA1689-42-48 03:51:98173Qhuuiwwr HermannCHEM VYZKE7121-16-28 03:51:004.3[facility]annCHEM HSZXQ0986-53-51 03:51:77537Rsfizlwt HermannCHEM STEOK5559-42-02 03:51:007.6[facility]annCHEM PYQYK2692-20-02 03:51:0025 [facility]annCHE[facility] QDJNQ6015-74-50 03:51:0014.3[facility] HermannCHEM PANEL 2019-03-05 03:51:00 Test Item Value Reference Range Interpretation Comments B/C Ratio (test code = B/C Ratio) 4 1 6-25 [facility]annCHEM UOEOW4942-67-69 03:51:003.5[facility] HermannCHEM PANEL 2019-03-05 03:51:00 Test Item Value Reference Range Interpretation Comments A/G Ratio (test code = A/G Ratio) 0.7 1 0.7-1.6 [facility] EmxqlcdLYLVKQCUPC6453-58-09 03:51:002.3[facility] HermannHEMATOLOGY 2019-03-05 03:51:003.3[facility] XoyscjrVVXRHFFZZS1730-14-28 03:51:001.0[facility] EvcsxnqHKFULRPBAF9692-70-72 03:51:000.6[facility] JktklxfXATAUXPNSW6933-23-29 03:51:000.3[facility] QjmuryiGQNRKLJBZK3945-99-13 03:51:0063.2[facility] FCLFIOAZWU8101-35-36 03:51:0018.1[facility] AcduedvVHAPNFGVOD5379-32-07 03:51:00 0.1[facility] WzengrdVVSJHGDQPP2027-27-53 03:51:0011.0[facility] HermannHEMATOLOGY 2019-03-05 03:51:005.4[facility] FktufwvEUPREJFPGX1078-62-10 03:51:00 Test Item Value Reference Range Interpretation Comments MCH (test code = MCH) 29.8 pg 27.0-31.0 [facility] BaczezqZSREJLMCOQ9670-97-98 03:51:0033.1[facility] HermannHEMATOLOGY 2019-03-05 03:51:005.3[facility] JcucdcgSOXWIIIBUD4113-78-94 03:51:002.61[facility] JgzmxzpQPWPSLYKZX0580-05-36 03:51:007.8[facility] RitpqzmLKJIFZRHDD6956-52-09 03:51:0023.5[facility] YgzfjqgVLQXWFYMLZ7616-31-61 03:51:0090.1[facility] HOHZVKGYQC4575-04-79 03:51:007.6[facility] MxgtwhaQOUVMKSNIS3122-52-93 03:51:92501 [facility] TopqiffWDVOYWAJQB7313-74-68 03:51:0015.6[facility] HermannIMMUNOLOGY 2019-03-05 03:51:13978.0[facility] GefqpbpDFGEGYIVWJ5725-73-03 18:20:006.0[facility] JagjpmeYTRTOVYYLH2983-66-42 18:20:0033.0[facility] IosfobmMOAQQTKRGC3807-56-71 18:20:003.64[facility] AiuqegwTWKZWWMRDC4530-68-05 18:20:0090.5[facility] SVNYHINWBR3757-85-71 18:20:0010.8[facility] IkrciucDBDWVWCDVM7105-97-15 18:20:00 14.6[facility] YqlkgwlAQMVZNSTQY5256-78-29 18:20:59568Mocnuouh HermannHEMATOLOGY 2019-02-21 18:20:0032.9[facility] JzitxkdMKZMJCICSA4976-49-95 18:20:00 Test Item Value Reference Range Interpretation Comments MCH (test code = MCH) 29.8 pg 27.0-31.0 [facility] ZugkelpUWWEPJDWNO2815-80-40 18:20:007.8[facility]annBL[facility]OD BANK QEGXPJP3009-10-27 15:03:00Negative (02/21/19 10:03 AM)[facility] DGEVAWJOFENT8141-76-70 15:03:004.3[facility] HermannCHEM NZISJ9807-42-35 14:18:007 [facility]annCHEM IEEQC7835-81-88 14:18:0014.2[facility] HermannCHEM PANEL 2019-02-21 14:18:0035[facility] HermannCHEM GMETX4505-75-29 14:18:61608Kskkbssb HermannCHEM FTWRN7055-90-03 14:18:008.4[facility]annCHEM PZVAY8562-34-14 14:18:0026[facility]annCHEM FPWOD4923-01-94 14:18:007.88[facility]annCHEM AVLXT6708-76-91 14:18:0075[facility]annCHEM GJXVT2149-98-56 14:18:004.2 [facility]annCHE[facility] CJTEP2836-58-61 14:18:60421Fiswsiyk HermannBLOOD BANK FNOFZPI9065-87-92 15:27:00Negative (01/29/19 10:27 AM)[facility]annCHEM PANEL 2019-01-29 15:27:006[facility] HermannCHEM MRBQJ4786-11-92 15:27:83196Djlcxvec HermannCHEM SIHII8722-51-03 15:27:004.3[facility] HermannCHEM YOISR8208-82-41 15:27:0027[facility]annCHEM AKXMP3286-46-86 15:27:008.2[facility]annCHEM LUUPD3851-72-70 15:27:72726Rwryvwtz HermannCHEM ZBKFU2471-69-22 15:27:27368 [facility]annCHE[facility] WOHUD3847-41-78 15:27:008.24[facility] HermannCHEM PANEL 2019-01-29 15:27:0045[facility] HermannCHEM ARBOU1596-60-11 15:27:0013.3[facility] SlyyicaKHFREAPRTG8315-72-77 15:27:000.6[facility] SqbvjyrYXJWQJKBSU2355-25-42 15:27:000.3[facility] JpqllzvACVYVJQERD4680-89-14 15:27:000.1[facility] WJIZFNDDPA1788-65-97 15:27:0011.3[facility] IfpjllxNCOTLNTAOJ5797-88-42 15:27:00 1.5[facility] UnpesdaYYQSDGEBEM0511-83-46 15:27:005.5[facility] HermannHEMATOLOGY 2019-01-29 15:27:0015.4[facility] VhxlsdpWXFYLOQERX0203-62-64 15:27:0066.3[facility] SxijmffZPCVYXQSMF4109-35-30 15:27:003.6[facility] ZopduipSAXSOHTEJN4180-14-68 15:27:000.8[facility] ZsnkyxeXYNZSGAPXK7796-41-09 15:27:00 Test Item Value Reference Range Interpretation Comments PTT (test code = PTT) 43.7 s 22.9-35.8 [facility] YwwbxolQOLPAMZYAL5077-23-57 15:27:00 Test Item Value Reference Range Interpretation Comments INR (test code = INR) 1.00 1 0.85-1.17 [facility] ZkhzjsiFIYWUVBAZL5828-47-84 15:27:00 Test Item Value Reference Range Interpretation Comments PT (test code = PT) 13.0 s 12.0-14.7 [facility] RipbqyzPKEWAPLSKP2040-56-84 15:27:02375Diykksdt HermannHEMATOLOGY 2019-01-29 15:27:007.5[facility] KunxhnbDIDYLYAOEL9463-91-09 15:27:005.4[facility] HxyfnjvESTZEUFIBY3009-77-54 15:27:003.90[facility] WeditrwABWOPMZHSV4773-53-59 15:27:00 Test Item Value Reference Range Interpretation Comments MCH (test code = MCH) 30.3 pg 27.0-31.0 [facility] BgpremvQPLDPSGNNP9230-32-05 15:27:0033.6[facility] HermannHEMATOLOGY 2019-01-29 15:27:0011.8[facility] JmysumkYMGPDLHVXM3245-99-06 15:27:0090.1[facility] GmorrvzNXUTKALKVX7193-25-37 15:27:0035.1[facility] MgfnexpKLLKKOAERE5058-58-88 15:27:0014.6[facility]annBLOOD BANK FBEEHPI7514-72-54 17:35:00Negative (12/11/18 12:35 PM)[facility] HermannCHEM LPLGC3214-62-17 17:35:006[facility] CHEM FAGYC2478-65-07 17:35:0062[facility] HermannCHEM WOGZE1265-01-94 17:35:0062 [facility]annCHEM ZKLXZ8899-27-65 17:35:008.1[facility] HermannCHEM PANEL 2018-12-11 17:35:0027[facility] HermannCHEM PXAFE8836-53-60 17:35:28820Icxqcbdc HermannCHEM FNULO7590-31-09 17:35:006.0[facility] HermannCHEM ERPGO0119-02-01 17:35:98744Onqrxbkt HermannCHEM CJNMF9153-48-23 17:35:008.46[facility] HermannCHEM DYBQC7133-32-89 17:35:0014.0[facility] GglvvobBXDIIJJOVV3082-43-32 17:35:001.9 [facility] SskaihsWDRMXSARMY8123-87-90 17:35:002.7[facility] HermannHEMATOLOGY 2018-12-11 17:35:004.4[facility] YlbjugtQKBYZVLEGJ3953-77-79 17:35:0011.6[facility] NcrwhmwITNXKTVCFD1972-30-40 17:35:000.1[facility] SkzsnpbFSULHJWDKT4866-33-89 17:35:001.1[facility] McijoedVNCZBZICSQ0898-21-21 17:35:000.2[facility] CQPVXCJIYK4660-21-83 17:35:000.5[facility] RgsafcnBWXYKXIAIG4703-55-31 17:35:00 23.7[facility] TwzuqctBRXUEUIVRB6320-05-77 17:35:0058.4[facility] HermannHEMATOLOGY 2018-12-11 17:35:00 Test Item Value Reference Range Interpretation Comments PTT (test code = PTT) 42.9 s 22.9-35.8 [facility] OcwmvxxQEODSMBFFM7281-74-65 17:35:00 Test Item Value Reference Range Interpretation Comments INR (test code = INR) 1.04 1 0.85-1.17 [facility] McgvnyeWHTCBXKCCI6774-41-17 17:35:00 Test Item Value Reference Range Interpretation Comments PT (test code = PT) 13.4 s 12.0-14.7 [facility] RdwqodkJQXJTAEZZL3415-75-29 17:35:0032.3[facility] HermannHEMATOLOGY 2018-12-11 17:35:0016.9[facility] OtklyuvJHIBLODJKD0539-58-28 17:35:00 Test Item Value Reference Range Interpretation Comments MCH (test code = MCH) 30.1 pg 27.0-31.0 [facility] NzjugxkTEBPBRBINZ1384-00-64 17:35:73621Xyhohjvm HermannHEMATOLOGY 2018-12-11 17:35:008.1[facility] IpahidoANPNKBDHMG8856-71-76 17:35:0093.1[facility] IatpdgiKHTRPXCTTA4039-53-54 17:35:0011.0[facility] KbwewwrEHTWNIPQPK4968-88-11 17:35:0034.1[facility] VgreqbgSADBFHQYHK3218-16-98 17:35:004.6[facility] Ganesh UKYEMGVMNX6161-47-38 17:35:003.66[facility] HermannSPECIAL YMJYHMDEL0533-65-48 17:35:005.0[facility]
--- NOTE | 2020-09-20 16:33 | RAD REPORT ---
EXAM DESCRIPTION: RAD - Chest Pa And Lat (2 Views) - 09/20/2020 3:48 pm CLINICAL HISTORY: COUGHcough, shortness of breath, congestion COMPARISON: September 14 TECHNIQUE: Frontal and lateral views of the chest were obtained. FINDINGS: The lungs are fibrotic as a baseline. Left base opacification is slightly worse than the c omparison. No failure or volume overload. Heart size is normal and central vasculature is within no rmal limits. Small pleural effusions are present similar to the comparison. No acute bony finding no parveen. No aortic abnormality. IMPRESSION: Questionable early left lung base pneumonia. Small bilateral pleural effusions similar to comparison.
[2020-09-20 17:39] LABS: Absolute Lymphocytes (CBC) 0.7 K/uL (0.7-4.9); Basophils % 0.9 % (0-1.3); Hematocrit 28.9 % (39.6-49.0); Lymphocytes % 11.3 % (15.3-44.8); MPV 7.7 fL (7.6-11.3); RBC Red Blood Cell Count 3.14 M/uL (4.33-5.43)
[2020-09-20] MEDS ORDERED: FUROSEMIDE 40 MG/4 ML VIAL ONE (17:46)
[2020-09-20] MEDS ORDERED: NA CHLORIDE 0.9% 250 ML ONE (18:01)
[2020-09-20] MEDS ORDERED: AZITHROMYCIN 500 MG INJ IVPB ONE (18:01)
[2020-09-20] MEDS ORDERED: CEFTRIAXONE/SWI 1gm 1 GM/10 ML SYR ONE (18:02)
[2020-09-20 18:07] LABS: Potassium 4.6 mmol/L (3.5-5.1)
--- NOTE | 2020-09-20 18:40 | ER ---
Nurse's Notes [facility] Name: Wade Koehler Age: 60 yrs Sex: Male : 1960 Arrival Date: 09/20/2020 Time: 13:10 Bed 5 Private MD: Diagnosis: Pneumonia, unspecified organism;End stage renal disease;Pulmonary edema Presentation: 09/20 15:05 Chief complaint: Patient states: Cough, congestion and SOB x 2 - 3 days, worse last ca1 night. Denies fever. Coronavirus screen: Client denies travel out of the [place] in the last 14 days. congestion, cough unrelated to allergies, shortness of breath, Client presents with at least one sign or symptom that may indicate coronavirus-19. Standard/surgical mask placed on the client. Provider contacted for isolation considerations. Ebola Screen: Patient negative for fever greater than or equal to 101.5 degrees Fahrenheit, and additional compatible Ebola Virus Disease symptoms Patient denies exposure to infectious person. Patient denies travel to an Ebola-affected area in the 21 days before illness onset. No symptoms or risks identified at this time. Initial Sepsis Screen: Does the patient meet any 2 criteria? No. Patient's initial sepsis screen is negative. Does the patient have a suspected source of infection? No. Patient's initial sepsis screen is negative. Risk Assessment: Do you want to hurt yourself or someone else? Patient reports no desire to harm self or others. Onset of symptoms was September 20, 2020. 15:05 Method Of Arrival: Ambulatory ca1 15:05 Acuity: WILFREDO 2 ca1 Historical: - Allergies: 15:09 NKA; ca1 - PMHx: 15:09 Diabetes - IDDM; Dialysis; at home seven days a week'; ESRD; Hypertension; PERIPHERAL ca1 NEUROPATHY; - PSHx: 15:09 Cholecystectomy; Heart stents; ca1 - Immunization history:: Adult Immunizations up to date, Flu vaccine is up to date. - Social history:: Smoking status: Patient reports the use of cigarette tobacco products, denies chronic smoking, but will smoke occasionally. - Family history:: not pertinent. - Hospitalizations: : No recent hospitalization is reported. Screenin:05 Abuse screen: Denies threats or abuse. Nutritional screening: No deficits noted. em Tuberculosis screening: No symptoms or risk factors identified. Fall Risk None identified. Assessment: 17:00 General: Appears in no apparent distress. uncomfortable, Behavior is calm, cooperative, em appropriate for age, Denies fever. Pain: Complains of pain in chest Pain currently is 2 out of 10 on a pain scale. Neuro: Level of Consciousness is awake, alert, obeys commands, Oriented to person, place, time, situation, Appropriate for age. Cardiovascular: Rhythm is regular. Respiratory: Reports shortness of breath at rest cough that is productive, Airway is patent Respiratory effort is even, unlabored, Respiratory pattern is regular, symmetrical, Breath sounds are diminished bilaterally. GI:. Derm: Skin is intact, is healthy with good turgor, Skin is pink, warm \T\ dry. Musculoskeletal: Capillary refill < 3 seconds, Range of motion: intact in all extremities. 18:30 Reassessment: Patient appears in no apparent distress at this time. Patient and/or em family updated on plan of care and expected duration. Pain level reassessed. Patient is alert, oriented x 3, equal unlabored respirations, skin warm/dry/pink. 19:20 Reassessment: Patient and/or family updated on plan of care and expected duration. Pain ea level reassessed. Patient is alert, oriented x 3, equal unlabored respirations, skin warm/dry/pink. Discharge instruction given to patient, verbalized the understanding of instruction. Pt left ED ambulatory tolerating well. Vital Signs: 15:05 BP 189 / 91; Pulse 73; Resp 16 S; Temp 98.2(O); Pulse Ox 97% on R/A; Weight 85.73 kg ca1 (R); Height 5 ft. 9 in. (175.26 cm) (R); Pain 2/10; 15:11 BP 183 / 83 LA; ca1 16:50 BP 179 / 88; Pulse 71; Resp 18; Pulse Ox 94% on R/A; em 19:20 BP 191 / 80; Pulse 78; Resp 18; Temp 98; Pulse Ox 95% on R/A; ea 15:05 Body Mass Index 27.91 (85.73 kg, 175.26 cm) ca1 ED Course: 13:10 Patient arrived in ED. as 15:08 Triage completed. ca1 15:09 Arm band placed on right wrist. ca1 15:15 COVID-19 Sent. ca1 15:46 Chest Pa And Lat (2 Views) XRAY In Process Unspecified. EDMS 16:50 Initial lab(s) drawn, by me, sent to lab. Inserted saline lock: 20 gauge in left em antecubital area, using aseptic technique. Blood collected. 16:58 Jerald Wiley MD is Attending Physician. rn 17:00 Bronson Santoro, JAYDE is Primary Nurse. em 17:05 Patient has correct armband on for positive identification. Placed in gown. Bed in low em position. Call light in reach. Pulse ox on. NIBP on. 18:39 Dante Best MD is Referral Physician. rn 19:20 No provider procedures requiring assistance completed. IV discontinued, intact, ea bleeding controlled, No redness/swelling at site. Pressure dressing applied. Administered Medications: 17:30 Drug: Lasix 40 mg Route: IVP; Site: left antecubital; em 18:47 Follow up: Response: No adverse reaction em 17:52 Drug: Zithromax 500 mg Route: IVPB; Infused Over: 1 hrs; Site: left antecubital; em 17:55 Drug: Rocephin 1 grams Route: IV; Rate: calculated rate; Site: left antecubital; em 18:52 Drug: Tussionex Pennkinetic ER 5 ml Route: PO; em 19:16 Follow up: Response: No adverse reaction ea 19:15 Drug: SOLU-Medrol 125 mg Route: IVP; Site: left antecubital; ea Outcome: 18:39 Discharge ordered by MD. rn 19:20 Discharged to home ambulatory, with family. ea 19:20 Condition: stable 19:20 Discharge instructions given to patient, Instructed on discharge instructions, follow up and referral plans. medication usage, Demonstrated understanding of instructions, follow-up care, medications, Prescriptions given X 3. 19:21 Patient left the ED. ea Addendum: 09/23/2020 08:51 Addendum: COVID-19 Result: Negative result given to RN to notify pt. Notified pt of d m5 negative COVID 19 swab results. Pt advised that even with a negative test result they should remain in isolation until symptom free for 3 days without medication. Pt also advised to return to the ED for worsening symptoms. Signatures: Dispatcher [employer] [facility] Janice Isidro, JAYDE RN dm5 Bronson Santoro, JAYDE RN em Jania Koehler Roman, MD MD rn Amy Garcia, RN RN ea AcEvette mendes, RN RN ca1 Corrections: (The following items were deleted from the chart) 09/20 15:14 15:05 Acuity: WILFREDO 3 ca1 ca1 17:56 16:30 Lasix 40 mg IVP in left antecubital em em 18:35 15:15 Influenza Screen (A \T\ B)+BA.LAB.BRZ drawn and sent. ca1 EDMS
--- NOTE | 2020-09-20 18:41 | EDPHYS ---
Physician Documentation [facility] Name: Wade Koehler Age: 60 yrs Sex: Male : 1960 Arrival Date: 09/20/2020 Time: 13:10 Bed 5 Private MD: ED Physician Jerald Wiley HPI: 09/20 17:08 This 60 yrs old Male presents to ER via Ambulatory with complaints of Chest rn Congestion, Shortness Of Breath, Cough. 17:08 The patient has shortness of breath at rest, with light activity. Onset: The rn symptoms/episode began/occurred 2 day(s) ago. Duration: The symptoms are intermittent. The patient's shortness of breath is aggravated by exertion, light activity. Associated signs and symptoms: Pertinent positives: productive cough, Pertinent negatives: fever, hemoptysis, loss of consciousness. Severity of symptoms: At their worst the symptoms were moderate in the emergency department the symptoms are unchanged. The patient has experienced similar episodes in the past. The patient has not recently seen a physician. Reports cough, sob, for 2 days, missed dialysis Monday due to holidays, reports cough and feels sick, similar to when had pneumonia in past. No trauma. No hemoptysis. . Historical: - Allergies: 15:09 NKA; ca1 - PMHx: 15:09 Diabetes - IDDM; Dialysis; at home seven days a week'; ESRD; Hypertension; PERIPHERAL ca1 NEUROPATHY; - PSHx: 15:09 Cholecystectomy; Heart stents; ca1 - Immunization history:: Adult Immunizations up to date, Flu vaccine is up to date. - Social history:: Smoking status: Patient reports the use of cigarette tobacco products, denies chronic smoking, but will smoke occasionally. - Family history:: not pertinent. - Hospitalizations: : No recent hospitalization is reported. ROS: 17:08 Constitutional: Negative for fever, chills, and weight loss, Eyes: Negative for injury, rn pain, redness, and discharge, ENT: Negative for injury, pain, and discharge, Neck: Negative for injury, pain, and swelling, Cardiovascular: Negative for chest pain, palpitations, and edema, Respiratory: Negative for pleuritic chest pain, Abdomen/GI: Negative for abdominal pain, nausea, vomiting, diarrhea, and constipation, Back: Negative for injury and pain, MS/Extremity: Negative for injury and deformity, Skin: Negative for injury, rash, and discoloration, Neuro: Negative for headache, numbness, tingling, and seizure. Exam: 17:08 Constitutional: This is a well developed, well nourished patient who is awake, alert, rn frequent cough and tachypnea Head/Face: Normocephalic, atraumatic. ENT: No stridor Cardiovascular: Regular rate and rhythm. No pulse deficits. Respiratory: + mild tachypnea with bibasilar crackles Abdomen/GI: soft, non-tender Skin: Warm, dry MS/ Extremity: RLE amputation Neuro: Awake and alert, GCS 15 Vital Signs: 15:05 BP 189 / 91; Pulse 73; Resp 16 S; Temp 98.2(O); Pulse Ox 97% on R/A; Weight 85.73 kg ca1 (R); Height 5 ft. 9 in. (175.26 cm) (R); Pain 2/10; 15:11 BP 183 / 83 LA; ca1 16:50 BP 179 / 88; Pulse 71; Resp 18; Pulse Ox 94% on R/A; em 19:20 BP 191 / 80; Pulse 78; Resp 18; Temp 98; Pulse Ox 95% on R/A; ea 15:05 Body Mass Index 27.91 (85.73 kg, 175.26 cm) ca1 MDM: 16:58 Patient medically screened. rn 18:37 Differential diagnosis: pneumonia, pulmonary edema. Data reviewed: vital signs, nurses rn notes, lab test result(s), radiologic studies, plain films, and as a result, I will discharge patient. Data interpreted: Pulse oximetry: on room air is 97 %. Interpretation: normal. Counseling: I had a detailed discussion with the patient and/or guardian regarding: the historical points, exam findings, and any diagnostic results supporting the discharge/admit diagnosis, lab results, radiology results, the need for outpatient follow up, to return to the emergency department if symptoms worsen or persist or if there are any questions or concerns that arise at home. Response to treatment: the patient's symptoms have mildly improved after treatment, and as a result, I will discharge patient. Special discussion: I discussed with the patient/guardian in detail that at this point there is no indication for admission to the hospital. It is understood, however, that if the symptoms persist or worsen the patient needs to return immediately for re-evaluation. ED course: Consulted with Dr. Best, upon patient's request, agrees with dc home, with levaquin 250mg daily x 10 days, and steroids. Return precautions and understood. No oxygen requirement. . 09/20 15:13 Order name: COVID-19 ca1 09/20 17:07 Order name: Procalcitonin; Complete Time: 18:29 rn 09/20 17:07 Order name: Lactate; Complete Time: 18:04 rn 09/20 17:07 Order name: Blood Culture Adult (2) rn 09/20 17:07 Order name: CBC with Diff; Complete Time: 17:59 rn 09/20 15:15 Order name: Chest Pa And Lat (2 Views) XRAY; Complete Time: 17:00 ca1 09/20 17:07 Order name: Basic Metabolic Panel; Complete Time: 18:10 rn 09/20 17:07 Order name: BNP; Complete Time: 18:10 rn 09/20 17:07 Order name: IV Start; Complete Time: 17:41 rn Administered Medications: 17:30 Drug: Lasix 40 mg Route: IVP; Site: left antecubital; em 18:47 Follow up: Response: No adverse reaction em 17:52 Drug: Zithromax 500 mg Route: IVPB; Infused Over: 1 hrs; Site: left antecubital; em 17:55 Drug: Rocephin 1 grams Route: IV; Rate: calculated rate; Site: left antecubital; em 18:52 Drug: Tussionex Pennkinetic ER 5 ml Route: PO; em 19:16 Follow up: Response: No adverse reaction ea 19:15 Drug: SOLU-Medrol 125 mg Route: IVP; Site: left antecubital; ea Disposition: 09/20/20 18:39 Discharged to Home. Impression: Pneumonia, unspecified organism, End stage renal disease, Pulmonary edema. - Condition is Stable. - Discharge Instructions: Community-Acquired Pneumonia, Adult, Dialysis, End-Stage Kidney Disease. - Prescriptions for Levaquin 250 mg Oral Tablet - take 1 tablet by ORAL route once daily for 10 days; 10 tablet. Prednisone 20 mg Oral Tablet - take 3 tablet by ORAL route once daily for 5 days; 15 tablet. Guaifenesin AC 10- 100 mg/5 mL Oral Liquid - take 10 milliliter by ORAL route every 4 hours As needed; 240 milliliter. - Medication Reconciliation Form, Thank You Letter, Antibiotic Education, Prescription Opioid Use form. - Follow up: Dante Best MD; When: As needed; Reason: Recheck today's complaints, Re-evaluation by your physician. - Problem is new. - Symptoms have improved. Signatures: Dispatcher [employer] [facility] Bronson Santoro, RN Jerald Vee MD MD rn Antunez, Elena, RN RN ea Acob, Evette, RN RN ca1 Corrections: (The following items were deleted from the chart) 18:35 15:13 Influenza Screen (A \T\ B)+BA.LAB.BRZ ordered. [facility] 19:21 18:39 09/20/2020 18:39 Discharged to Home. Impression: Pneumonia, unspecified organism; ea End stage renal disease; Pulmonary edema. Condition is Stable. Forms are Medication Reconciliation Form, Thank You Letter, Antibiotic Education, Prescription Opioid Use. Follow up: Dante Best; When: As needed; Reason: Recheck today's complaints, Re-evaluation by your physician. Problem is new. Symptoms have improved. rn
[2020-09-20] MEDS ORDERED: METHYLPREDNISOLONE 125 MG INJ ONE ×2 (19:04→19:25)
[2020-09-20] MEDS ORDERED: HYDROCODONE/CHLORPHEN 5 ML/OSYR ONE (19:05)
[2020-09-20 19:54] VITALS: TEMP 98.2
[2020-09-20 19:56] VITALS: BP 179/88; O2SAT 94
== END 2020-09-20 19:21 | disposition home or self-care (01) ==
LOC: ER 13:08
DX: J18.9 Pneumonia, unspecified organism (principal); Z20.828 Contact with and (suspected) exposure to other viral communicable diseases; J81.1 Chronic pulmonary edema; E11.22 Type 2 diabetes mellitus with diabetic chronic kidney disease; I12.0 Hypertensive chronic kidney disease with stage 5 chronic kidney disease or end stage renal disease; N18.6 End stage renal disease; F17.210 Nicotine dependence, cigarettes, uncomplicated; Z99.2 Dependence on renal dialysis; Z95.818 Presence of other cardiac implants and grafts
CPT/HCPCS: 87040 ×2; 85025; 80048; 36415; 83605; 84145; 83880; 71046; 96375; 96374; 99284; U0002; J1940; J0456; J0696; J7050; J2930 ×2

== ENCOUNTER 2020-10-02 10:02 | Emergency (ER) | payer OTHER, BC ==
--- OUTSIDE RECORDS SUMMARY | 2020-10-02 10:07 | XMS REPORT | Clinical Summary ---
:1960 Author Organization [facility] Address [address] [place] [address] Care Team Providers Name Role Phone MD [...] Encounters Date Type Specialty Care Team Description 09/29/2020 Lab Lab Celina Xie MD 08/31/2020 Lab Lab Celina Xie MD 08/14/2020 [...] Celina Xie MD 06/02/2020 Documentation Transplant Sylvie Ambrocio RN 05/27/2020 Lab Transplant Celina Xie ESRD (end stage MD Aamir renal disease) ([facility]) 05/27/2020 Travel 05/26/2020 Orders Only Transplant Ambrocio, ESRD (end stage JAYDE Mercer renal disease) ([facility]) (Primary Dx) 05/18/2020 Documentation Transplant Tate, Kidney Eval (P RA Ban Kits ) 05/14/2020 Documentation Transplant Tatum May 05/14/2020 Documentation Medical Records Provider, Unknown 05/14/2020 Travel 05/13/2020 Documentation Transplant Tatum May 04/23/2020 Hospital Encounter Pulmonology Celina Xie ESRD (end stage MD Aamir renal disease) ([facility]) 04/23/2020 Office Visit Transplant Celina Xie SABAS (obstructiv e sleep apnea) (Primary Dx); MD Aamir Alcohol use disorder, severe, dependence ([facility]); Aidee Daniels, Alcohol-ind uced mood disorder ([facility]) 04/23/2020 Travel 04/16/2020 Documentation Transplant Tatum May Kidney Follo w-up (04/16/20 BCBS PPO & MCR ABD was david ified as active & kumar efits updated. MEDICA RE COB PERIOD 10/12 ENDS 04/24/20.) 03/31/2020 Orders Only Transplant Lolly, ESRD (end stage Sylvie, tester semiconductor packages disease) ([facility]) (Primary Dx) 03/30/2020 Telephone Transplant Juju Pittman Appointment (08:19am [facility]. Left my direct numbe r to return my call. ) 03/30/2020 Orders Only Transplant Lolly, ESRD (end stage Sylvie, tester semiconductor packages disease) ([facility]) (Primary Dx) 03/26/2020 Hospital Encounter Pulmonology Trino Lackey ESRD (en d stage MD David renal disease) ([facility]) 03/26/2020 Hospital Encounter Radiology Trino Lackey ESRD (en d stage MD David renal disease) ([facility]) 03/26/2020 Office Visit Transplant Rolf Thayer Pre-transpla nt MD Chaot evaluation for Navya Smith MD kidney trans plant (Primary Dx) 03/26/2020 Social Work Transplant Celina Xie MD 03/26/2020 Telephone Transplant Kathleen Muse, Speak with co ord MA 03/26/2020 Travel 03/19/2020 Orders Only Transplant Lolly, ESRD (end stage Sylvie, tester semiconductor packages disease) ([facility]) (Primary Dx) 03/17/2020 Documentation Transplant Juju Pittman Itinerary ( Itinerary emailed/mailed today and scanned in media. ) 01/15/2020 Abstract Transplant Andreina Whyte RN 01/01/2020 Documentation Transplant Juju Pittman Appointment (14:15pm sp w/pt re: allison t on 03/26/2020 & pt confirmed. ) 12/24/2019 Telephone Transplant Juju Pittman Appointment (14:57pm Called pt to florina carrerael the rest of his appts on 2019 [...] Juju Pittman Appointment (09:33am left messgae to return my call to schedule follow up appointments. ) 11/18/2019 Documentation Transplant ZainJuju Kidney Eval (Cardio clearance 11/12 & cardio consult 10/17/19 sarina lin in media. ) 11/12/2019 Orders Only Transplant Lolly, ESRD (end stage Sylvie, tester semiconductor packages disease) ([facility]) 11/05/2019 Hospital Encounter Procedural Celina Xie ESRD (end stage Cardiology MD Aamir renal disease) ([facility]) 10/29/2019 Documentation Transplant Juju Pittman Itinerary ( Itinerary for echo emaile d and scanned in medi a. ) 10/28/2019 Telephone Transplant Zain Juju Echo appoint ment (14:13pm Called pt letting him tomy Uriostegui wants me to schedule an ech o. Pt requested 11/05 to do echo. Pt schedule on 08/14 @10am. Pt confi rmed. Emailing gumaro boyer this week to pt . ) 10/18/2019 Orders Only Transplant Lolly, ESRD (end stage Sylvie, tester semiconductor packages disease) ([facility]) (Primary Dx) 10/08/2019 Abstract Transplant AmbrocioSylvie RN 10/04/2019 Telephone Transplant Womandy, Waitlist Status SUSHANT Flores Update after 10/02/2019 Immunizations Name Administration Dates Next Due FLUCELVAX QUAD PF 08/09/2018 Surgical History Surgery Date Site/Laterality Comments GALLBLADDER SURGERY TOE AMPUTATION INSERTION, CATHETER, CENTRAL VENOUS, TUNNELED, FOR HEMODIALYSIS INSERTION, CATHETER, 11/07/2017 Abdomen/N/A Procedure: LAPAROSCOPIC DIALYSIS, PERITONEAL, PERITONEAL DIALYSIS LAPAROSCOPIC CATHETER PLACEME NT; Surgeon: Julio Roman MD; Location: [facility] Main OR; S ervice: General; Latera lity: N/A; Medical devices from this surgery are in t he Implants section . RENAL BIOPSY 09/25/2016 - 09/24/2017 INTUBATION 07/27/2018 INSERTION, CATHETER, 07/26/2018 Abdomen/N/A Procedure: LAPAROSCOPIC INTRAPERITONEAL, PERITONEAL CATH ETER LAPAROSCOPIC REPOSITIONING; Surgeon: Julio mcintyre MD; Location: [facility] Main OR; Service: General ; Laterality: N/A; CARDIAC CATHETERIZATION 08/01/2018 Radial Procedur e: Cv left heart cath w lv gram c ors; Surgeon: Adonay Leal MD; Location: [facility] In[facility] Loc ation; Service: Cardiol ogy; Laterality: Radi al; Medical devices from this surgery are in t he Implants section . CARDIAC CATHETERIZATION 08/01/2018 N/A Procedur e: Cv intracoronary st ent placement w armani oplasty single major art lesia or branch; Surgeon : Adonay Leal MD; Loca tion: [facility] [employer] In v[employer] Location; Servi ce: Cardiology; Lat erality: N/A; Medical devices from this surgery are in t he Implants section . REMOVAL, CATHETER, DIALYSIS, 07/31/2018 Abdomen/N/A Pro cedure: OPEN REMOVAL PERITONEAL OF PERITONEAL CA THETER; Surgeon: Julio Roman MD; Location: [facility] Main OR; S ervice: General; Latera lity: N/A; CARDIAC CATHETERIZATION 11/02/2018 N/A Procedur e: CV LEFT HEART CATH LV GRAM WIT H CORS; Surgeon: Jossue Doe MD; Locatio n: [facility] [employer] Location; Servi ce: Cardiology; Lat erality: N/A; Medical devices from this surgery are in t he Implants section . CARDIAC CATHETERIZATION 11/02/2018 N/A Procedur e: Selective coronary angiogr aphy; Surgeon: Jossue Doe MD; Locatio n: [facility] [employer] Location; Servi ce: Cardiology; Lat erality: N/A; Medical devices from this surgery are in t he Implants section . CARDIAC CATHETERIZATION 11/02/2018 N/A Procedur e: Cv percutaneous cor onary intervention; S urgeon: Jossue Doe MD; Location: [facility] In[facility] Locatio n; Service: Cardiol ogy; Laterality: N/A; Medical devices from this surgery are in t he Implants section . CARDIAC CATHETERIZATION 11/02/2018 N/A Procedur e: OCT; Surgeon: Jossue Doe MD; Location: [facility] Invasive Locatio n; Service: Cardiol ogy; Laterality: N/A; Medical devices from this surgery are in t he Implants section . IR RIGHT LOWER EXTREMITY 06/13/2019 Right RIGHT L OWER EXTREMITY ARTERIOGRAM WITH BALLOON ANGIOGR AM WITH BALLOON DILATATION ANGIOPLASTY ARTERIOGRAM WITH 06/13/2019 Leg Lower/Right Procedure: RIGH T LOWER ANGIOPLASTY, IF INDICATED EXTREM ITY ANGIOGRAM WITH BALLOON ANGIOPL ASTY.; Surgeon: Rebecca Cody MD; Location: [facility] Main OR; Service: [facility]; Laterality: Righ t; Medical History [...] Comments Blood Pressure 197/79 08/04/2020 2:39 PM ENVIRONMENTAL EPIDEMIOLOGIST Pulse 78 08/04/2020 2:39 PM ENVIRONMENTAL EPIDEMIOLOGIST Temperature 36.7 C (98 F) 04/23/2020 8:54 AM CDT Respiratory Rate 17 03/26/2020 7:46 AM CDT Oxygen Saturation 91% 08/04/2020 2:39 PM ENVIRONMENTAL EPIDEMIOLOGIST Inhaled Oxygen Concentration - - Weight 87.5 kg (193 lb) 08/04/2020 2:39 PM ENVIRONMENTAL EPIDEMIOLOGIST Height 175.3 cm (5' 9") 08/04/2020 2:39 PM ENVIRONMENTAL EPIDEMIOLOGIST Body Mass Index 28.5 08/04/2020 2:39 PM ENVIRONMENTAL EPIDEMIOLOGIST Plan of Treatment Health Maintenance Due Date Last Done Comments DIABETES: RETINAL EYE EXAM 1969 COVID-19 VACCINE (#1) 1975 COLONOSCOPY SCREENING 2009 SHINGLES VACCINES (#1) 2009 INFLUENZA VACCINE 04/25/2020 08/09/2018, 08/18/2017 DIABETIC FOOT EXAM 06/06/2020 06/06/2019 Implants Implanted Type Area Nut And Bolt Assembler Device Shelf Model / Identifier Expiration Serial / Date Lot Catheter Dialysis Glidepath [id number] Symmetric Tip - [id number] Central N/A: BARD PERIPHERAL [id number] / Implanted: 09/17/2018 at [facility] (Quantity not on file) Ve nous N/A VASCULAR / Catheters Stent Coronary Syst Synergy (Mr) 3.00mm X 12mm - [id number] Coronary N/A: BSC 04/03/2020 [id number] / Implanted: Qty: 1 on 08/01/2018 by Adonay Leal MD at [facility] Stents N/A INTERVENTIONAL / CARDIOLOGY [id number] Description:2300 Gauss Xience Radha Everolimus Eluting Coronar y Stent System 3.00 Mm X 15 Mm / Rapid- Exchange - [id number] STENTS 155 [id number] 15 / Implanted: Qty: 1 on 11/02/2018 by Jossue Doe MD at [facility] / Description:3000 Gauss Xience Radha Everolimus Eluting Coronar y Stent System 2.75 Mm X 15 Mm / Rapid- Exchange - [id number] STENTS 155 [id number] 15 / Implanted: Qty: 1 on 11/02/2018 by Jossue Doe MD at [facility] / Description:3000 Gauss Manoj Stylet Stylet / N/A: N/A MEDIONICS 07/24/2021 [id number] 1 / Implanted: Qty: 1 on 11/07/2017 by Julio Roman MD at [facility] AT [employer] [id number] / [id number] Catheter 19.5cm Peritoneal Dialysis Extended - [id number] Surgical N/A: N/A 08/24/2022 SNPS [id number] / Implanted: 11/07/2017 at [facility] (Quantity not on file) Implants ; / Expanders; [id number] Extenders; Surgical Wires Procedures Procedure Name Priority Date/Time Associated Diagnosis Comme nts SINGLE ANTIGEN BEADS Routine 08/26/2020 12:48 Res ults for this PM ENVIRONMENTAL EPIDEMIOLOGIST procedure are i n the results section. [...] for this PANEL PM CDT renal disease) ([facility]) procedu re are in the results section. SINGLE ANTIGEN BEADS Routine 05/27/2020 8:19 Res ults for this AM CDT procedure are i n the results section. THYROID STIMULATING Routine 05/14/2020 1:20 ESRD (end stage R esults for this HORMONE PM CDT renal disease) ([facility]) procedu re are in the results section. PARTIAL THROMBOPLASTIN Routine 05/14/2020 1:20 ESRD (end stag e Results for this TIME (PTT) PM CDT renal disease) ([facility]) procedu re are in the results section. PROTHROMBIN TIME WITH Routine 05/14/2020 1:20 ESRD (end stage Results for this INR PM CDT renal disease) ([facility]) procedu re are in the results section. SIX MINUTE WALK W/ Routine 04/23/2020 12:51 ESRD (end stage Re sults for this PULSE OXIMETRY PM CDT renal disease) ([facility]) proce dure are in the results section. CT ANGIOGRAM ABDOMEN Routine 03/26/2020 1:30 ESRD (end stage Results for this PELVIS W AND OR WO PM CDT renal disease) ([facility]) p rocedure are in CONTRAST the results [...] Results for this AM CDT renal disease) ([facility]) procedu re are in the results section. PROSTATE SPECIFIC Routine 03/26/2020 7:36 ESRD (end stage Res ults for this ANTIGEN AM CDT renal disease) ([facility]) procedu re are in the results section. SERUM ELECTROPHORESIS Routine 03/26/2020 7:36 ESRD (end stage Results for this AM CDT renal disease) ([facility]) procedu re are in the results section. PARATHYROID HORMONE Routine 03/26/2020 7:36 ESRD (end stage R esults for this AM CDT renal disease) ([facility]) procedu re are in the results section. HSV TYPE 1/2 COMBINED Routine 03/26/2020 7:36 ESRD (end stage Results for this AB, IGM AM CDT renal disease) ([facility]) procedu re are in the results section. HSV 1 & 2 GLYCOPROTEIN Routine 03/26/2020 7:36 ESRD (end stag e Results for this G AB, IGG AM CDT renal disease) ([facility]) procedu re are in the results section. KARENA-ORTIZ VIRUS Routine 03/26/2020 7:36 ESRD (end stage Re sults for this ANTIBODY TEST AM CDT renal disease) ([facility]) proced ure are in the results section. CYTOMEGALOVIRUS AB, IGM Routine 03/26/2020 7:36 ESRD (end sta ge Results for this AM CDT renal disease) ([facility]) procedu re are in the results section. CYTOMEGALOVIRUS AB, IGG Routine 03/26/2020 7:36 ESRD (end sta ge Results for this AM CDT renal disease) ([facility]) procedu re are in the results section. HEMOGLOBIN A1C Routine 03/26/2020 7:36 ESRD (end stage Result s for this AM CDT renal disease) ([facility]) procedu re are in the results section. LDH Routine 03/26/2020 7:36 ESRD (end stage Results for this AM CDT renal disease) ([facility]) procedu re are in the results section. PHOSPHORUS LEVEL Routine 03/26/2020 7:36 ESRD (end stage Resu lts for this AM CDT renal disease) ([facility]) procedu re are in the results section. FASTING GLUCOSE LEVEL Routine 03/26/2020 7:36 ESRD (end stage Results for this AM CDT renal disease) ([facility]) procedu re are in the results section. LIPID PANEL Routine 03/26/2020 7:36 ESRD (end stage Results for this AM CDT renal disease) ([facility]) procedu re are in the results section. NICOTINE AND COTININE, Routine 03/26/2020 7:36 ESRD (end stag e Results for this SERUM AM CDT renal disease) ([facility]) procedu re are in the results section. DRUG ALVAREZ 9, SER/MOOKIE, Routine 03/26/2020 7:36 ESRD (end stage Results for this SCRN W/RFLX TO CONF AM CDT renal disease) ([facility]) procedure are in the results section. PARTIAL THROMBOPLASTIN Routine 03/26/2020 7:36 ESRD (end stag e Results for this TIME (PTT) AM CDT renal disease) ([facility]) procedu re are in the results section. PROTHROMBIN TIME WITH Routine 03/26/2020 7:36 ESRD (end stage Results for this INR AM CDT renal disease) ([facility]) procedu re are in the results section. HC COMPLETE BLD COUNT Routine 03/26/2020 7:36 ESRD (end stage Results for this W/AUTO DIFF AM CDT renal disease) ([facility]) procedu re are in the results section. SYPHILIS TOTAL ANTIBODY Routine 03/26/2020 7:36 ESRD (end sta ge Results for this AM CDT renal disease) ([facility]) procedu re are in the results section. HEPATITIS C ANTIBODY Routine 03/26/2020 7:36 ESRD (end stage Results for this AM CDT renal disease) ([facility]) procedu re are in the results section. HEPATITIS B SURFACE AB, Routine 03/26/2020 7:36 ESRD (end sta ge Results for this QUANTITATIVE AM CDT renal disease) ([facility]) procedu re are in the results section. [...] lts for this CONTRAST, W DOPPLER AM ENVIRONMENTAL EPIDEMIOLOGIST renal disease) (HCC) procedure are in (94904) the results section. after 10/02/2019 Results Single antigen beads (08/26/2020 12:48 PM ENVIRONMENTAL EPIDEMIOLOGIST)Only the most recent of2 results within the time period is included. [facility] serum ID [id number] [facility] SAB serum collection 08/26/2020 12:48 [facility] D&T PM HOSPITAL SAB class I antibody Negative [facility] SAB cPRA class I 0 [facility] SAB class II Negative [facility] cPRA class II 0 [facility] Single antigen beads See link below [facility] for PDF Lab HOSPITAL Report Specimen Blood Performing Organization Address City/State/ZIP Code Phon e Number [facility] DEPARTMENT OF PATHOLOGY AND [address] [place] [address] 0 [facility] [address] [place] [address] [facility] Hexagonal phospholipid (07/08/2020 2:11 PM CDT)Only the most recent of2 results within the time period is included. Hexagonal phospholipid 65.3 sec [facility] tube #1 HOSPITAL Hexagonal phospholipid 48.6 sec [facility] tube #2 HOSPITAL Tube 1 - 2 16.7 (H) 0.0 - 11.0 sec [facility] LA interpretation Positive [facility] Specimen Blood Performing Organization Address [facility] Phon e Number [facility] DEPARTMENT OF PATHOLOGY AND [address] [place] [phone] [facility] [address] [place] [address] DRVVC, DRVVT/DRVVC (07/08/2020 2:11 PM CDT)Only the most recent of2 results within the time period is included. DRVVT 48.8 (H) 29.0 - 46.0 [place] Comment: sec ORTHODOXY This test has been modified from the [facility] instructions. The performance characteristics were determined by [facility] in a manner consistent with CLIA requirements. This test has not been cleared or approved by the U.S. Food and Drug Administration. DRVVC 33.0 sec [place] Comment: ORTHODOXY This test has been modified from the [facility] instructions. The performance characteristics were determined by [facility] in a manner consistent with CLIA requirements. This test has not been cleared or approved by the U.S. Food and Drug Administration. DRVVT/DRVVC ratio 1.48 (H) 0.00 - 1.22 [facility] Specimen Blood Performing Organization Address [facility] Phon e Number [facility] DEPARTMENT OF PATHOLOGY AND [address] [place] [phone] [facility] [address] [place] [address] Beta-2 glycoprotein 1 antibody, IgG and IgM (07/08/2020 2:11 PM CDT) Beta-2 glycoprotein 1 <9.4 0.0 - 20.0 [facility] antibody, IgG Comment: HOSPITAL Negative =<20.0 [facility] Positive >20.0 [facility] Beta-2 glycoprotein 1 <9.4 0.0 - 20.0 [facility] antibody, IgM Comment: HOSPITAL Negative =<20.0 [facility] Positive >20.0 [facility] Specimen Blood Performing Organization Address City/[facility] Phon e Number [facility] DEPARTMENT OF PATHOLOGY AND [address] [place], [place] [address] [address] Lupus anticoagulant panel (07/08/2020 2:11 PM CDT)Only the most recent of2 resultswithin the time period is included. Prothrombin time 13.2 11.5 - 14.5 [facility] INR 1.0 [place] Comment: ORTHODOXY The International Normalized Ratio (INR) is a therapeu [facility] HOSPITAL monitoring tool for patients who are stable on oral anticoagulant therapy. An INR of 2.0-3.0 is suggested for deep vein thrombosis/pulmonary embolism. PTT 35.0 23.0 - 36.0 [place] Comment: [facility] PTT therapeutic range for unfractionated heparin is HOSPITAL 61.0-112.0 seconds which corresponds to Anti-Xa 0.3-0.7 U/ml. PTT lupus 40.5 (H) 27.0 - 38.0 [place] anticoagulant Comment: [facility] Lupus anticoagulant (LA) panel consists [...] diagnosis. DRVVT 48.8 (H) 29.0 - 46.0 [place] Comment: [facility] This test has been modified from the [facility] instructions. The performance characteristics were determined by [facility] in a manner consistent with CLIA requirements. This test has not been cleared or approved by the U.S. Food and Drug Administration. Specimen Blood Performing Organization Address City/[facility] Phon e Number [facility] DEPARTMENT OF PATHOLOGY AND [address] [address] Cardiolipin antibodies (07/08/2020 2:11 PM CDT) Cardiolipin IgG 7 0 - 14 GPL DASIA COLLINSIST Comment: HOSPITAL Negative <15 GPL Indeterminate 15-20 GPL Positive >20 GPL Cardiolipin IgM 16 (H) 0 - 12 MPL DASIA DONAHUE Comment: HOSPITAL Negative <13 MPL Indeterminate 13-20 MPL Positive >20 MPL Specimen Blood Performing Organization Address City/[facility] Code Phon e Number [facility] DEPARTMENT OF PATHOLOGY AND [address] [place] [phone] Partial thromboplastin time, activated (05/14/2020 1:20 PM CDT)Only the most recent of2 resultswithin the time period is included. PTT 37.3 (H) 23.0 - 36.0 DASIA ORTHODOXY Comment: [facility] PTT therapeutic range for unfractionated heparin is 61.0-112.0 seconds which corresponds to Anti-Xa 0.3-0.7 U/ml. Specimen Blood Performing Organization Address [facility] Phon e Number [facility] DEPARTMENT OF PATHOLOGY AND [address] [place] [phone] Prothrombin time with INR (05/14/2020 1:20 PM CDT)Only the most recent of2 resultswithin the time period is included. Prothrombin time 13.4 11.5 - 14.5 [facility] INR 1.0 [place] Comment: ORTHODOXY [facility] International Normalized Ratio (INR) is a therapeu [facility] monitoring tool for patients who are stable on oral anticoagulant therapy. An INR of 2.0-3.0 is suggested for deep vein thrombosis/pulmonary embolism. Specimen Blood Performing Organization Address City/[facility] Phon e Number [facility] DEPARTMENT OF PATHOLOGY AND [address] [place] [phone] Thyroid stimulating hormone (05/14/2020 1:20 PM CDT) Pathologist Sig nature TSH 1.55 0.27 - 4.20 uIU/mL [facility] ITAL Specimen Blood Performing Organization Address City/[facility]/ZIP Code Phon e Number [facility] DEPARTMENT OF PATHOLOGY AND [address] [place], [place] [phone] GENOMIC MEDICINE [facility] [address] [place] [address] Six minute walk w/ pulse oximetry (04/23/2020 [...] is no t available. Performing Organization Address City/[facility]/ZIP Code Phon e Number [facility] [address] [place] [address] CTA Abdomen Pelvis W And Or Wo [...] trace infrarenal aortic nonflow limi ting atherosclerosis/arteriosclerosis. Surveillance Observer aortic diameters: Diaphragmatic hiatus: 2.3 cm Level [...] clinical significance. Oth erwise, normal. IMPRESSION: Mild gvx-mtum-eummdbms atherosclerosis and arterioscle rosis of the aorta and iliac arteries as described. [facility]-[id number] Procedure Note Hm Interface, Radiology Results Incoming [...] only trace infrarenal aortic nonflow limiting atherosclerosis/arteriosclerosis. Surveillance Observer aortic diameters: Diaphragmatic hiatus: 2.3 cm Level of renal arteries: 1.9 cm Distal infrarenal segment: 1.6 cm Celiac, SMA and LULY are patent without s tenosis. [place] renal arteries are unremarkable. Iliac arteries: Right [...] indeterminate clinical significance. Otherwise, normal. IMPRESSION: Mild lcv-ldrd-ymlunwgo atherosclerosis a nd arteriosclerosis of the aorta and iliac arteries as described. [facility]-[id number] Performing Organization Address City/State/ZIP [facility] Phon e Number [facility] [address] [place] [address] Nicotine and cotinine, serum (03/26/2020 7:36 AM CDT) Nicotine <2.0 0.0 - 1.9 [facility] ng/mL [facility] Cotinine 32.9 (H) 0.0 - 1.9 [facility] Comment: ng/mL HOSPITAL This test was developed and its performance characteri stics determined by the Department of Pathology and Genomic Medicine, [facility]. Serum nicotine and metabolite cotinine are t ested by HPLC tandem mass spectrometry. It has not been cleared or approved by FDA. The laboratory is regulated under CLIA as qualified to per form high-complexity testing. This test is used for clinical purposes. It s hould not be regarded as investigational or for research. Specimen Blood Performing Organization Address City/[facility] Code Phon e Number [facility] DEPARTMENT OF PATHOLOGY AND [address] [place] [address] [phone] [facility] [address] [place] [address] SAB class 1 & 2 with dilutions (03/26/2020 7:36 AM CDT) Pathologist Sig nature [facility] SAB class 1 & 2 See link below [facility] with dilutions for PDF Lab HOSPITAL Report Specimen Blood Performing Organization Address City/[facility]/[place]IP [facility] Phon e Number [facility] DEPARTMENT OF PATHOLOGY AND [address] [place] [address] 0 [facility] Urinalysis screen and microscopy, with reflex to culture (03/26/2020 7:36 AM CDT) Pathologist Sig nature Specimen site Clean catch [facility] Color, UA Straw [facility] Appearance, UA Clear [facility] Specific gravity, 1.007 1.001 - 1.035 [facility] pH, UA 8.0 5.0 - 8.5 [facility] Protein, UA 3+ (A) Negative [facility] Glucose, UA 2+ (A) Negative [facility] Ketones, UA Negative Negative [facility] Bilirubin, UA Negative Negative [facility] Blood, UA Negative Negative [facility] Nitrite, UA Negative Negative [facility] Urobilinogen, UA <2.0 <2.0 [facility] Leukocyte esterase, Negative Negative [facility] WBC, UA 1 0 - 1 /HPF [facility] RBC, UA 1 0 - 5 /HPF [facility] Bacteria, UA Few None seen [facility] Yeast, UA None seen [facility] Yeast with None seen [facility] pseudohyphae, HOSPITAL Sperm, UA Few (A) [facility] Specimen Urine Performing Organization Address [facility] Phon e Number [facility] DEPARTMENT OF PATHOLOGY AND [address] [place] [address] [address] Estimated GFR (03/26/2020 7:36 AM CDT) Pathologist [facility] Estimated GFR 8 (A) mL/min/1.73 [facility] Comment: m2 HOSPITAL Catergory Units Interpretation G1 [...] published in 2014. Specimen Performing Organization Address [facility] Phon e Number [facility] DEPARTMENT OF PATHOLOGY AND [address] [place], [place] [phone] [address] [address] Syphilis total antibody (03/26/2020 7:36 AM CDT) Syphilis total Non-reactiveComment Non-reactive [facility] antibody : No serological HOSPITAL evidence of syphilis infection. Specimen Serum Performing Organization Address [facility]/ZIP [facility] Phon e Number [facility] DEPARTMENT OF PATHOLOGY AND [address] [place] [address] [phone] [address] HSV 1 & 2 glycoprotein G Ab, IgG (03/26/2020 7:36 AM CDT) HSV 1 glycoprotein G Positive (A) Negative [facility] Ab, IgG Comment: HOSPITAL Positive results may indicate current or past HSV infe ction. For acute illness, viral PCR and IgM testing are recom mended. Individuals infected with HSV may not exhibit detectab le antibodies in cases of early infection. HSV 2 glycoprotein G Positive (A) Negative [facility] Ab, IgG Comment: HOSPITAL Positive results may indicate current or past HSV infe ction. For acute illness, viral PCR and IgM testing are recom mended. Individuals infected with HSV may not exhibit detectab le antibodies in cases of early infection. Specimen Serum Performing Organization Address [facility] Phon e Number [facility] DEPARTMENT OF PATHOLOGY AND [address] [place] [address] [address] Karena-Ortiz virus antibody test (03/26/2020 7:36 AM CDT) EBV Ab to viral capsid Positive (A) Negative [facility] Ag, IgG HOSPITAL EBV Ab to viral capsid Negative Negative [facility] Ag, IgM HOSPITAL EBV Ab to nuclear Ag, Positive (A) Negative [facility] IgG HOSPITAL EBV Ab to early (D) Negative Negative [facility] Ag, IgG HOSPITAL Karena-Ortiz virus SEE [facility] antibody COMMENTComment: HOSPITAL interpretation Infection Status: Results may suggest past EBV infection. Specimen Serum Performing Organization Address [facility] Phon e Number [facility] DEPARTMENT OF PATHOLOGY AND [address] [place] [address] [phone] [address] HIV Ag/Ab combination (03/26/2020 7:36 AM CDT) HIV Ag/Ab combination Non-reactive Non-reactive [facility] Specimen Blood Performing Organization Address [facility]/ZIP [facility] Phon e Number [facility] DEPARTMENT OF PATHOLOGY AND [address] [place] [address] [phone] [place] [address] Miscellaneous referral test (03/26/2020 7:36 AM CDT) [facility] test name HSV PCR SHOWN ABOVE [facility] test result see note SHOWN ABOVE Comment: Herpes Simplex Virus by PCR [facility] test code [id number] Herpes Simplex Virus Source Plasma - - [...] PCR Test developed and characteristics determined by [email or web address]. See Compliance Statement B: [employer]/ CS ===== Test performed by: [email or web address] [address] [place], [place] [address] Specimen Narrative Performed At 1.9HSVP - Herpes Simplex Virus (HSV) by [facility] DEPARTMENT OF PATHOLOGY AND GENOMIC PCR MEDICINE [employer] Test code: [id number] Source: [place] (EDTA) Performing Organization Address City/State/[facility] Code Phon e Number [facility] DEPARTMENT OF PATHOLOGY AND [address] [place] [address] [phone] GENOMIC MEDICINE SHOWN ABOVE HSV type 1/2 combined Ab, IgM (03/26/2020 7:36 AM CDT) [facility] HSV 1/2 combined 0.79 <=0.89 IV [facility] REF LAB Ab, IgM Comment: INTERPRETIVE [...] than 12 months post -infection. Performed by [email or web address], [address] [place] [id number] www.[employer], Cam Sauceda MD, Lab. Director Specimen Serum Performing Organization Address [facility] Phon e Number [facility] [address] [place] [address] [facility] [address] [place] [address] Hepatitis B surface Ab, quantitative (03/26/2020 7:36 [...] and Tissue-Based Products (HCT/P) . Performed by [email or web address], [address] [place] [address] www.[employer], Cam Sauceda MD, Lab. Director Specimen Serum Performing Organization Address [facility] Phon e Number [facility] [address] [place] [address] [facility] [address] [place] [address] Hepatitis C antibody (03/26/2020 7:36 AM CDT) Pathologist Sig nature Hepatitis C Ab Non-reactive Non-reactive [facility] Specimen Blood Performing Organization Address [facility]/ZIP [facility] Phon e Number [facility] DEPARTMENT OF PATHOLOGY AND [address] [place] [address] 0 [place] [address] Cytomegalovirus Ab, IgM (03/26/2020 7:36 AM CDT) Pathologist Sig nature Cytomegalovirus Ab, IgM Negative Negative [facility] Specimen Serum Performing Organization Address City[facility] Phon e Number [facility] DEPARTMENT OF PATHOLOGY AND [address] [place] [address] 0 [place] [address] Hepatitis A antibody total (03/26/2020 7:36 AM CDT) Pathologist Sig nature Hepatitis A total Non-reactive Non-reactive [facility] Specimen Blood Performing Organization Address [facility] Phon e Number [facility] DEPARTMENT OF PATHOLOGY AND [address] [place] [address] 0 [place] [address] Drug alvarez 9, ser/mookie, scrn w/rflx to [...] se. Test developed and characteristics determined by [email or web address]. See Compliance Statement B: [employer]/ CS Performed by [email or web address], [address] [place] [address] www.[employer], Cam Sauceda MD, Lab. Director Specimen Serum Performing Organization Address [facility] Phon e Number [facility] [address] [place] [address] [facility] [address] [place] [address] Hepatitis B core antibody total (03/26/2020 7:36 AM CDT) Pathologist Sig nature Hepatitis B core Non-reactive Non-reactive [facility] HOSPITAL Specimen Blood Performing Organization Address [facility] Phon e Number [facility] DEPARTMENT OF PATHOLOGY AND [address] [place] [address] [phone] [address] C-peptide (03/26/2020 7:36 AM CDT) Pathologist Sig nature C-peptide 3.4 1.1 - 4.4 ng/mL [facility] Specimen Blood Performing Organization Address City[facility] Phon e Number [facility] DEPARTMENT OF PATHOLOGY AND [address] [place] [address] [phone] [address] Hepatitis B surface antibody (03/26/2020 7:36 AM CDT) Pathologist Sig nature Hepatitis B surface Reactive (A) Non-reactive [facility] Specimen Blood Performing Organization Address City[facility] Phon e Number [facility] DEPARTMENT OF PATHOLOGY AND [address] [place] [address] [phone] [address] Hepatitis B surface antigen (03/26/2020 7:36 AM CDT) Pathologist Sig nature Hepatitis B surface Non-reactive Non-reactive [facility] Specimen Blood Performing Organization Address City/State/[facility] Phon e Number [facility] DEPARTMENT OF PATHOLOGY AND [address] [place], [place] [address] [address] [address] Cytomegalovirus Ab, IgG (03/26/2020 7:36 AM CDT) Pathologist [facility] Cytomegalovirus Ab, IgG Positive (A) Negative [facility] Comment: HOSPITAL Positive; IgG antibody to CMV detected which may indic ate exposure to CMV infection. Specimen Serum Performing Organization Address [facility] Phon e Number [facility] DEPARTMENT OF PATHOLOGY AND [address] [place] [address] [address] CBC with platelet and differential (03/26/2020 7:36 AM CDT) [facility] WBC 8.68 4.50 - 11.00 [facility] k/uL [facility] RBC 3.92 (L) 4.40 - 6.00 [facility] m/uL [facility] HGB 11.7 (L) 14.0 - 18.0 [facility] g/dL [facility] HCT 36.0 (L) 41.0 - 51.0 % [facility] MCV 91.8 82.0 - 100.0 [facility] MCH 29.8 27.0 - 34.0 pg [facility] MCHC 32.5 31.0 - 37.0 [facility] RDW - SD 44.9 37.0 - 55.0 fL [facility] MPV 9.7 8.8 - 13.2 fL [facility] Platelet count 251 150 - 400 k/uL [facility] Nucleated RBC 0.00 /100 WBC [facility] Neutrophils 72.5 (H) 39.0 - 69.0 % [facility] Lymphocytes 13.2 (L) 25.0 - 45.0 % [facility] Monocytes 7.7 0.0 - 10.0 % [facility] Eosinophils 5.0 0.0 - 5.0 % [facility] Basophils 1.3 (H) 0.0 - 1.0 % [facility] Immature granulocytes 0.3Comment: 0.0 - 1.0 % [facility] "Immature HOSPITAL granulocytes" (promyelocytes , myelocytes, metamyelocytes ) Specimen Blood Performing Organization Address City/[facility] Phon e Number [facility] DEPARTMENT OF PATHOLOGY AND [address] [place] [address] [phone] [address] Urine culture (03/26/2020 7:36 AM CDT) Pathologist Sig nature Urine culture SEE COMMENTComment: [facility] Bacteriuria screen HOSPITAL negative. Specimen Performing Organization Address City/[facility] Phon e Number [facility] DEPARTMENT OF PATHOLOGY AND [address] [place] [address] [phone] [address] Serum electrophoresis (03/26/2020 7:36 AM CDT) Protein 6.7 6.3 - 8.3 [facility] Comment: g/dL [facility] 4.6-7.0 g/dL 1 week 4.4-7.6 g/dL 7 months-1year 5.1-7.3 g/dL 1-2 years 5.6-7.5 g/dL >3 years 6.0-8.0 g/dL 18-150 6.3-8.3 g/dL [facility] albumin 4.04 3.51 - 5.42 [facility] g/dL [facility] SPE alpha 1 0.39 0.18 - 0.40 [facility] g/dL [facility] SPE alpha 2 0.54 0.44 - 0.96 [facility] g/dL [facility] SPE beta 0.58 0.52 - 1.07 [facility] g/dL [facility] SPE gamma 1.15 0.70 - 1.54 [facility] g/dL [facility] SPE extended See [facility] interpretation CommentComment: [facility] A normal serum HOSPITAL protein study. SPE interpretation See [facility] CommentComment: [facility] Zhicheng Jin, [facility] PhD; Nalini Cortez, PhD; Suraj Otero MD Specimen Serum Performing Organization Address City[facility]/ZIP [facility] Phon e Number [facility] DEPARTMENT OF PATHOLOGY AND [address] [place] [address] [place] [phone] Prostate specific antigen (03/26/2020 7:36 AM CDT) PSA 0.5 0.0 - 4.0 [facility] Comment: ng/mL [facility] The GEORGE 8000 PSA immunoassay was used. Results obtained with different assay methods or kits should not be used interchangeably and may be differen t. Specimen Blood Performing Organization Address [facility] Phon e Number [facility] DEPARTMENT OF PATHOLOGY AND [address] [place] [phone] Phosphorus level (03/26/2020 7:36 AM CDT) Pathologist Sig nature Phosphorus 7.0 (H) 2.4 - 4.5 mg/dL [facility] Specimen Blood Performing Organization Address City/[facility] Phon e Number [facility] DEPARTMENT OF PATHOLOGY AND [address] [place] [address] [phone] [address] Parathyroid hormone (03/26/2020 7:36 AM CDT) Pathologist Sig nature PTH 620 (H) 15 - 65 pg/mL [facility] Specimen Blood Performing Organization Address City[facility]/ZIP [facility] Phon e Number [facility] DEPARTMENT OF PATHOLOGY AND [address] [place] [address] [phone] [address] LDH (03/26/2020 7:36 AM CDT) Pathologist Sig nature LDH 192 87 - 225 U/L [facility] Specimen Blood Performing Organization Address City/[facility] Phon e Number [facility] DEPARTMENT OF PATHOLOGY AND [address] [place] [address] [phone] [address] Hemoglobin A1c (03/26/2020 7:36 AM CDT) Hemoglobin A1C 7.1 (H) 4.0 - 5.6 % [facility] Comment: HOSPITAL HbA1c cutoffs for diagnosing diabetes: [...] 1 diabetes. Specimen Blood Performing Organization Address City/[facility] Phon e Number [facility] DEPARTMENT OF PATHOLOGY AND [address] [place] [address] [phone] [address] Fasting glucose level (03/26/2020 7:36 AM CDT) Pathologist Sig nature Glucose, fasting 65 65 - 99 mg/dL [facility] Specimen Blood Performing Organization Address [facility] Phon e Number [facility] DEPARTMENT OF PATHOLOGY AND [address] [place] [address] [phone] [address] Lipid panel (03/26/2020 7:36 AM CDT) Cholesterol 101 <200 mg/dL [facility] Triglycerides 107 <150 mg/dL [facility] HDL cholesterol 49 >40 mg/dL [facility] LDL cholesterol 33Comment: Result <100 mg/dL [facility] obtained by direct [facility]TH[facility]OXY LDL measurement [facility] Lipid panel SeeBelow [facility] interpretation Comment: [facility]THODOXY Total Cholesterol (mg/dL) [facility] <200 Desirable 200-239 Borderline-high >=240 High [...] (>=200 mg/dL) Specimen Blood Performing Organization Address City/State/[facility] Phon e Number [facility] DEPARTMENT OF PATHOLOGY AND [address] [place] [address] [phone] GENOMIC MEDICINE [address] [address] Comprehensive metabolic panel (03/26/2020 7:36 AM CDT) Sodium 137 135 - 148 [facility] mEq/L [facility] Potassium 4.0 3.5 - 5.0 [facility] mEq/L [facility] Chloride 95 (L) 98 - 112 [facility] mEq/L [facility] CO2 26 24 - 31 mEq/L [facility] Anion gap 16@ANIO (H) 7 - 15 mEq/L [facility] BUN 33 (H) 8 - 23 mg/dL [facility] Creatinine 6.91 (H) 0.70 - 1.20 [facility] mg/dL HOSPITAL Glucose 65 65 - 99 mg/dL [facility] Calcium 8.7 (L) 8.8 - 10.2 [facility] mg/dL [facility] Protein 7.1 6.3 - 8.3 [facility] Comment: g/dL [facility] - [place] 4.6-7.0 g/dL 1 week 4.4-7.6 g/dL 7 months-1year 5.1-7.3 g/dL 1-2 years 5.6-7.5 g/dL >3 years 6.0-8.0 g/dL 18-150 6.3-8.3 g/dL Albumin 3.4 (L) 3.5 - 5.0 [facility] g/dL [facility] A/G ratio 0.9 0.7 - 3.8 [facility] Alkaline phosphatase 145 (H) 40 - 129 U/L [facility] AST 18 10 - 50 U/L [facility] ALT 16 5 - 50 U/L [facility] Total bilirubin 0.3 0.0 - 1.2 [facility] mg/dL HOSPITAL Specimen Blood Performing Organization Address City/[facility] Phon e Number [facility] DEPARTMENT OF PATHOLOGY AND [address] [place] [address] [phone] GENOMIC MEDICINE [facility] [address] [place] [address] Echocardiogram complete w contrast and 3D if needed (11/05/2019 11:36 AM ENVIRONMENTAL EPIDEMIOLOGIST) Specimen Narrative Performed At [facility] Echo cardiography Report [address] [facility], [address], [place] [id number] Pat.Name: MARNIE LYLES Pat.ID: [id number] .Date: 11/05/2019 Refer.MD: CELINA XIE Exam Time: 10:23:00 AM Study Type:Ro utine Echo Height: 69in Weight: 202lb BSA: 2.08 m2 Ag e: 1960,59Y Sex: MALE BP: 178/77 HR: 65 bpm Sonogrphr: Marielos Middleton [facility], Kelley sher, Student Pat. Stat.:Outpatient Study Status :Final Echo Event ID:[id number] Order ID: [id number] Reason for Study:Renal Transplant Evalua tion History [...] PA systolic pressure. MEASUREMENTS: 2D Parasternal Long [place] Ao An 1.8 cm LVPWd 1.1 cm [...] Radiology Results In - 2019 5:35 PM ENVIRONMENTAL EPIDEMIOLOGIST Echocardiography Report [address] [place] [address] Pat.Name: MARNIE LYLESI D: [id number] .Date: 11/05/2019 Refer .MD: CELINA XIE Exam Time: 10:23:00 AM Study Type:Routine Echo Height: 69in Weigh t: 202lb BSA: 2.08 m2 Age: 8 1960,59Y Sex: MALE BP: 178/77 HR: 65 bpm Sonogrphr: Marielos Middleton, [facility], Kelley sher, Student Pat. Stat.:Outpatient Study Status:Final Echo Event ID:[id number] Order ID: [id number] Reason for Study:Renal Transplant Evalua tion History [...] PA systolic pressure. MEASUREMENTS: 2D Parasternal Long [place] Ao An 1.8 cm LVPW d 1.1 [...] Organization Address City/State/ZIP Code Phon e Number [facility] [address] [place] [address] after 10/02/2019 Insurance Payer Benefit Plan / Subscriber ID Effective Dates Phone Addre ss Type Group BCBS BCBS CHOICE [id number] 2019- PPO PPO/FEDERAL EMPL 1 PPO HUMANA MEDICARE HUMANA MEDICARE [id number] 2020-Present PPO PPO/PFFS/[facility] Advance Directives For more information, please contact: [phone] Type Date Recorded Patient Surveillance Observer Explanati on Advance Directives, Living Will 11/02/2017 3:11 PM and Medical Power of Pruner Advance Directives, Living Will 03/01/2019 3:12 PM and Medical Power of Pruner Code Status Date Activated Date Inactivated Comments Full Code 08/23/2018 3:54 AM 08/27/2018 9:46 PM Code Status decision reached by: Patient
--- OUTSIDE RECORDS SUMMARY | 2020-10-02 10:09 | XMS REPORT | Continuity of Care Document ---
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/20 [place] FISTULA 19 MALFUNCTION UNK Active 01/09/[address] 19 N18.6 Active 11/24/[address] 19 Diabetes Active Problem 03/09/2019 [place] mellitus Neuro, (disorder) [facility] Dyspnea on Active Problem 03/09/2019 [place] exertion Neuro, (finding) [facility] End stage renal Active Problem 03/09/2019 [facility] [place] ([facility]order) Heart failure Resolved Problem 03/09/2019 Misch er (disorder) [facility] Hypertensive Active Problem 03/09/2019 Mische r disorder, Neuro, systemic [facility] arterial (disorder) Myocardial Resolved Problem 03/09/2019 [place] infarction [facility] (disorder) [facility] Sleep apnea Active Problem 03/09/2019 [place] (finding) [facility] Hand pain Active Problem 03/09/2019 [place] (finding) [facility] Paresthesia Active Problem 03/09/2019 [place] (finding) [facility] Simple obesity Active Problem 03/09/2019 [facility]isc [facility] Sudden Active Problem 03/09/2019 Mische r (finding) [facility] Unspecified 03/09/2019 [place] complication of cardiac and vascular prosthetic device, implant and graft, initial encounter [facility] COMPL OF Active [place] [...] day, # 12 tab, 0 Refill(s), Pharmacy: [facility] [id number] pantoprazole 40 40 mg = 1 tab, Active H mg oral enteric PO, Before 2019 [place] coated tablet Breakfast, # 30 tab, 0 Refill(s), Pharmacy: [facility] [id number] Colchicine 0.6 MG 0.6 mg = 1 tab, Active Oral Tablet PO, BID, # 60 [address] [place] tab, 0 Refill(s), Pharmacy: [facility] [id number] Levofloxacin 500 500 mg = 1 tab, Active MG Oral Tablet PO, Q24H, X 10 2019 [place] [Levaquin] day, # 10 tab, 0 Refill(s), Pharmacy: [facility] [id number] Protonix Notes: Tablet Inactive should not be 2018 [facility] chewed or crushed. (Same as: Protonix) Solu-Medrol Notes: (Same No Longer as:Solu-MEDROL, Active 2018 [facility] t A-Methapred) Colchicine 0.6 mg, 1 tab, No Longer Route: PO, Drug Active 2018 t form: TAB, BID, Dosing Weight 92.227, kg, Priority: NOW, Start date: 03/06/19 14:53:00 CDT, Duration: 30 day, Stop date: 04/05/19 9:00:00 CDT tamsulosin Notes: (Same No Longer As: Flomax) Active 2018 [facility] "Do Not Crush" atorvastatin Notes: (Same No Longer As: Lipitor) Active 2018 [facility] Epogen Notes: (Same No Longer as: Procrit) Active 2018 [facility] epoetin olamide 91218 unit/1 ml VL. For dialysis use only. (Procrit) WASTE: F/P - Red; E -Red MEDICATION WASTE Product Size: 54523 unit Product Wasted: ___ unit vancomycin + Notes: TIME No Longer Sodium Chloride CRITICAL [facility] [address] [facility] 0.9% IV 100 mL MEDICATION (Same As: Vancocin) For adult patients only: Round to nearest 250 mg per Medical Staff approval Lactulose 667 Notes: (Same No Longer MG/ML Oral as:Chronulac) Active [address] [facility] [address] Solution Fluticasone Notes: (Same No Longer propionate 0.05 as: Flonase) Active 2018 [place] MG/ACTUAT Metered Dose Nasal [place] [Flonase] Fluticasone 1 spray, NASAL, Active propionate 0.05 BID, # 16 gm, 0 2018 [facility] MG/ACTUAT Metered Refill(s) Dose Nasal [place] [Flonase] prasugrel 60kg, without No Longer history of Active 2018 [facility] TIA/Ischemic stroke and without likely bypass surgery Veltassa 8.4 gm, Route: No Longer PO, Drug form: Active 2018 [facility] PDR/REC, Daily, Dosing Weight 92.227, kg, Start date: 03/05/19 9:00:00 CDT, Duration: 30 day, Stop date: 04/03/19 9:00:00 CDT gabapentin 300 MG Notes: (Same No Longer Oral Capsule as: Neurontin) Active 2018 [place] Insulin Glargine Notes: (Same No Longer 100 UNT/ML as: Lantus) Do Active 2018 [facility] ast Injectable not hold Solution [Lantus] insulin without contacting prescriber WASTE: F/P - Black; E - Municipal Trash Bin "single patient use only" Stable for 28 days at room temperature Expires in days from D ate carvedilol Notes: Give No Longer with food. Active 2018 [facility] (Same As: Coreg) Aspirin 81 MG Notes: Do not No Longer Enteric Coated crush or chew. Active [place] Tablet (Same As: Ecotrin) Nephro-Dana Rx Notes: (Same No Longer as: Nephro-Dana [facility] and Diatx) Give with food. Bumetanide Notes: (Same No Longer As: Bumex) Active 2018 [facility] NIFEdipine 30 mg Notes: (Same No Longer [...] Notes: porcine No Longer heparin Active 2018 [facility] zolpidem Notes: (Same No Longer As: Ambien) Active 2018 [facility] tramadol Notes: Not to No Longer hydrochloride 50 exceed Active [address] [facility] [address] MG Oral Tablet 400mg/day. (Same As: Ultram) tizanidine Notes: (Same No Longer As: Zanaflex) Active 2018 [facility] Nitroglycerin 0.4 Notes: (Same No Longer MG Sublingual as:Nitroquick, Active 2018 [place] Tablet Nitrostat) "Do Not Crush" Sublingual tablet Eszopiclone 3 mg, Route: Inactive PO, Drug form: 2018 [facility] TAB, Bedtime, Dosing Weight 92.227, kg, PRN Insomnia, Start date: 03/04/19 22:42:00 CDT, Duration: 30 day, Stop date: 04/03/19 22:41:00 CDT Albuterol 0.833 Notes: (Same No Longer H MG/ML / as: Duoneb) Active 2018 [facility] Ipratropium [place] 0.167 MG/ML Inhalant Solution Acetaminophen 325 Notes: (Same No Longer MG / Hydrocodone as: [place] Active 2018 [facility] Bitartrate 5 MG 325/5) Do not Oral Tablet exceed 4gm/day [[place] 5/325] of acetaminophen. Zofran Notes: (Same No Longer as: Zofran) Active 2018 [facility] MEDICATION WASTE Product Size: 4 mg Product Wasted: ___ mg Vancomycin 1 ea, Route: Inactive JOHN WARD, 2019 [facility] Dosing Weight 92.227, kg, Start date: 03/04/19 22:00:00 CDT, Duration: 10 day, Stop date: 03/14/19 21:59:00 CDT, Pharmacy to dose, ABX Indication: Skin/Soft Tissue Infection cefepime Notes: (Same No Longer As: Maxipime) Active 2018 [facility] MEDICATION WASTE Product Size: 1000 mg Product Wasted: ___ mg Calcium Chloride 125 mL, 75 Inactive 0.0014 MEQ/ML / ml/hr, Infuse 2018 [facility] Potassium Over: 1.7 hr, Chloride 0.004 Route: IV, 125, MEQ/ML / Sodium Drug form: Chloride 0.103 SOLN, ONCE, MEQ/ML / Sodium Dosing Weight Lactate 0.028 92.227 kg, MEQ/ML Injectable Start date: Solution 03/04/19 21:22:00 CDT, Stop date: 03/04/19 21:22:00 CDT Insulin Lispro Notes: (Same No Longer as: Humalog) Active 2018 [facility] Roll in palms of hands gently; Do not shake vigorously. WASTE: F/P - Black; E - Municipal Trash Bin Stable for 28 days at room temperature. Expires in days from D ate Glucagon 1 mg, Route: No Longer IM, Drug form: Active 2018 [facility] PDR/INJ, PRN, Dosing Weight 92.227, kg, PRN Blood Glucose Results, Start date: 03/04/19 21:21:00 CDT, Duration: 30 day, Stop date: 04/03/19 21:20:00 CDT Dextrose 50% 25 gm, 50 mL, No Longer Syringe Route: IVP, Active 2018 [facility] Drug Form: INJ, Dosing Weight 92.227, kg, PRN, PRN Blood Glucose Results, Start date: 03/04/19 21:21:00 CDT, Duration: 30 day, Stop date: 04/03/19 21:20:00 CDT Acetaminophen Notes: Do not No Longer exceed 4 Active 2018 [facility] gm/day. (Same as: Tylenol) tizanidine 2 mg 2 mg = 1 cap, Active oral capsule PO, Q8H, PRN 2019 [facility] ast for muscle spasms, # 90 cap, 0 Refill(s) zolpidem 10 mg 10 mg = 1 tab, No Longer oral tablet PO, Bedtime, Active 2018 [facility] PRN as needed for insomnia, 0 Refill(s) eszopiclone 3 mg 3 mg = 1 tab, No Longer oral tablet PO, Bedtime, Active 2018 [facility] PRN for insomnia, 0 Refill(s) Albuterol 0.833 3 mL, Active MG/ML / INHALATION, 2018 [place] Q4H, PRN [place] 0.167 Wheezing, # 30 MG/ML Inhalant ea, 1 Refill(s) Solution NIFEdipine 30 mg 30 mg = 1 tab, Active oral tablet, PO, Before 2018[facility] t extended release Breakfast, # 30 tab, 0 Refill(s) Acetaminophen 300 1 tab, PO, Q8H, No Longer 02/23 MG / Codeine PRN Pain Score Active 2018 [place] Phosphate 30 MG 6-10, 0 Oral Tablet Refill(s) [Tylenol with Codeine #3] patiromer 8400 MG 8.4 gm, PO, Active Powder for Oral Daily, 0 2018 [facility] Suspension Refill(s) [Veltassa] atorvastatin 10 10 mg = 1 tab, Active H mg oral tablet PO, Bedtime, # 2019 [place] 90 tab, 0 Refill(s) Lactulose 667 20 gm = 30 mL, Active MG/ML Oral PO, After 2018 [facility] Dinner, 0 Refill(s) sucroferric 500 mg = 1 tab, Active oxyhydroxide 500 CHEW, [address] [facility] [address] MG Chewable TID-Meals, 0 Tablet [Velphoro] [...] Flumazenil Notes: (Same Inactive as: Romazicon) 2018 [facility] Fentanyl Notes: (Same Inactive as: Sublimaze) 2018 [facility] Preservative free. Hydromorphone Notes: Same as: Inactive H Dilaudid 2019 [facility] Naloxone Notes: Same as Inactive Narcan 2018 [facility] Oxycodone Notes: (Same Inactive as: Roxicodone) 2018 [facility] Acetaminophen Notes: Max Inactive acetaminophen 2018 [facility] 4000 mg/day (4 gm/day). (Same as: Tylenol Extra Strength) Labetalol 10 mg, 2 mL, Inactive Route: IVP, 2018 [facility] Drug form: INJ, Q5Min, Dosing Weight 90.682, kg, PRN Elevated BP, Start date: 02/21/19 14:37:00 CDT, Duration: 5 doses or times, Stop date: 02/22/19 0:00:00 CDT Hydralazine Notes: (Same Inactive as: Apresoline) 2018 [facility] t Push over 5 minutes Diphenhydramine Notes: (Same Inactive as: Benadryl) 2018 [facility] Ondansetron Notes: (Same Inactive as: Zofran) 2018 [facility] MEDICATION WASTE Product Size: 4 mg Product Wasted: ___ mg Meperidine Notes: (Same Inactive As: Demerol) 2018 Benadryl 25 mg, Route: Inactive 02/21/ MH IVP, ONCE, 2018 [facility] Dosing Weight 90.682, kg, PRN Itching, Start date: 02/21/19 14:28:00 CDT phenylephrine Route: IV, Drug Inactive 02/21/ M H (ANES) form: INJ, 2018 ONCE, Stop date: 02/21/19 13:58:00 CDT Acetaminophen 325 Notes: Do not Inactive 02/21/ MH MG / Hydrocodone exceed 4gm/day 2018 [facility] Bitartrate 10 MG of Oral Tablet acetaminophen. (Same as: [place] 325/10) Morphine 2 mg, 1 mL, Inactive 02/21/ MH Route: IVP, 2018 [facility] Drug form: SOLN, Q3H, Dosing Weight 90.682, kg, PRN Pain Score 1-3, Start date: 02/21/19 13:41:00 CDT, Duration: 30 day, Stop date: 03/23/19 13:40:00 CDT ePHEDrine (ANES) Route: IV, Drug Inactive MH form: INJ, 2018, Stop date: 02/21/19 13:23:00 CDT metoclopramide Route: IV, Drug Inactive MH (ANES) form: INJ, 2018, Stop date: [...] Route: IV, Drug Inactive form: INJ, 2018 [facility] ONCE, Stop date: 02/21/19 12:42:00 CDT vancomycin (ANES) Route: IV, Drug Inactive 02/21 1000 mg form: INJ, 2018 [facility] Start date: 02/21/19 12:10:00 CDT, Stop date: 02/21/19 13:10:00 CDT Sodium Chloride Route: IV, Inactive 0.9% IV (ANES) Total Volume: 2018 [facility] 1000 mL 1,000, Start date: 02/21/19 11:52:00 CDT, Stop date: 02/21/19 12:52:00 CDT Dextrose 50% 12.5 gm, 25 mL, Inactive Syringe Route: IVP, 2018 [facility] Drug Form: INJ, Dosing Weight 90.682, kg, ONCE, Start date: 02/21/19 11:30:00 CDT, Stop date: 02/21/19 11:30:00 CDT Sodium Chloride 1,000 mL, Rate: Inactive 0.9% IV 1000 mL 25 ml/hr, 2018 [facility] ast Infuse over: 40 hr, Route: IV, Dosing Weight 90.682 kg, Total Volume: 1,000, Start date: 02/21/19 9:49:00 CDT, Duration: 30 day, Stop date: 03/23/19 9:48:00 CDT, 2.11, m2 Ancef + sterile Notes: (Same No Longer 01/29/ H water 20 mL As: Ancef, Active 2018 [facility] Kefzol) MEDICATION WASTE Product Size: 1000 mg Product Wasted: ___ mg Vancomycin 2001 mg: No Longer infuse over 2.[address] [facility] t hours For adult patients only: Round to nearest 250 mg per Medical Staff approval MEDICATION WASTE Product Size: 1000 mg Product Wasted: ___ mg Insulin Glargine 36 unit, SUB-Q, Active 100 UNT/ML Daily, 0 2018 [facility] Injectable Refill(s) Solution [Lantus] gabapentin 300 MG 300 mg = 1 cap, Active 01/16/ [place] Oral Capsule PO, Daily, # 30 2019 [place] ro cap, 3 Refill(s), Pharmacy: [facility] [id number] gabapentin 300 MG See No Longer her Oral Capsule Instructions, 1 Active 2018 [facility] ro cap PO after dialysis, # 30 cap, 2 Refill(s), [facility] [id number] Ondansetron 4 mg, Route: Inactive 12/20[facility] IVP, ONCE, 2019 [facility] Dosing Weight 90.966, kg, PRN Nausea & Vomiting, Start date: 12/20/18 9:13:00 CDT Meperidine 12.5 mg, Route: Inactive IVP, Q30Min, 2018 [facility] Dosing Weight 90.966, kg, PRN Other -See Comment, For shivering, Start date: 12/20/18 9:13:00 CDT, Duration: 2 doses or times, Stop date: Limited # of times Hydralazine 10 mg, Route: Inactive IVP, Q20Min, 2018 [facility] Dosing Weight 90.966, kg, PRN Elevated BP, Start date: 12/20/18 9:13:00 CDT, Duration: 2 doses or times, Stop date: Limited # of times Naloxone 0.4 mg, Route: Inactive IVP, Q2MIN, 2018 [facility] Dosing Weight 90.966, kg, PRN Narcotic [...] mg, Route: Inactive PO, Drug form: 2018 [facility] TAB, Q4H, Dosing Weight 90.966, kg, PRN Pain Score 4-6, Start date: 12/20/18 9:13:00 CDT, Duration: 30 day, Stop date: 01/19/19 9:12:00 CDT Labetalol 10 mg, Route: Inactive IVP, Q5Min, 2018 [facility] Dosing Weight 90.966, kg, PRN Elevated BP, Start date: 12/20/18 9:13:00 CDT, Duration: 5 doses or times, Stop date: Limited # of times Acetaminophen 1,000 mg, Inactive Route: PO, Drug 2018 [facility] t form: TAB, ONCE, Dosing Weight 90.966, kg, PRN Pain Score 1-3, Start date: 12/20/18 9:13:00 CDT Fentanyl 50 microgram, Inactive Route: IVP, 2018 [facility] Q5Min, Dosing Weight 90.966, kg, PRN Pain Score 7-10, Priority: Routine, Start date: 12/20/18 9:13:00 CDT, Duration: 2 doses or times, Stop date: Limited # of times Flumazenil 0.2 mg, Route: Inactive IVP, PRN, 2018 [facility] Dosing Weight 90.966, kg, PRN Benzodiazepine Reversal, Initial dose, Start date: 12/20/18 9:13:00 CDT, Duration: 30 day, Stop date: 01/19/19 9:12:00 CDT Hydromorphone 0.5 mg, Route: Inactive IVP, Q5Min, 2018 [facility] Dosing Weight 90.966, kg, PRN Pain Score 7-10, Start date: 12/20/18 9:13:00 CDT, Duration: 4 doses or times, Stop date: Limited # of times Acetaminophen 325 Notes: Do not Inactive MG / Hydrocodone exceed 4gm/day 2018 [facility] Bitartrate 10 MG of Oral Tablet acetaminophen. (Same as: [place] 325/10) Acetaminophen 325 Notes: (Same Inactive MG / Hydrocodone as: [place] 2019 [facility] Bitartrate 5 MG 325/5) Do not Oral Tablet exceed 4gm/day of acetaminophen. Sodium Chloride 500 mL, Rate: Inactive H 0.9% IV 500 mL 25 ml/hr, 2018 [facility] Infuse over: 20 hr, Route: IV, Dosing Weight 90.966 kg, Total Volume: 500, Start date: 12/20/18 7:38:00 CDT, Duration: 1 day, Stop date: 12/21/18 7:37:00 CDT, 2.11, m2 prasugrel 10 mg, PO, Active Daily, 0 2018 Refill(s) tamsulosin 0.4 mg 0.4 mg = 1 cap, Active oral capsule PO, Daily, # 30 2019 [place] cap, 0 Refill(s) carvedilol 6.25 mg, PO, Active BID, 0 2018 Refill(s) Vancomycin 2001 mg: No Longer infuse over 2.[address] [facility] t hours For adult patients only: Round to nearest 250 mg per Medical Staff approval MEDICATION WASTE Product Size: 1000 mg Product Wasted: ___ mg Ancef + sterile Notes: (Same No Longer H water 20 mL As: Ancef, Active 2018 [facility] Kefzol) MEDICATION WASTE Product Size: 1000 mg Product Wasted: ___ mg Vitamin B1 Daily, 0 Active Refill(s) 2018 [facility] bumetanide 2 mg 2 mg = 1 tab, Active oral tablet PO, BID, 0 2019 [facility] Refill(s) Acidophilus Daily, 0 Active Refill(s) 2018 [facility] Aspirin 81 MG 81 mg = 1 tab, Active Enteric Coated PO, Daily, # 90 2019 [place] Tablet tab, 3 Refill(s) Nitroglycerin 0.4 0.4 mg = 1 tab, Active MG Sublingual SL, Q5Min, 0 2019 [facility] Tablet Refill(s) zolpidem 10 mg 10 mg = 1 tab, Active sublingual tablet SL, Bedtime, 2019 [place] PRN for sleep, 0 Refill(s) Auryxia 420 mg, PO, 0 Active Refill(s) 2018 [facility] NIFEdipine 30 mg 30 mg = 1 tab, Active oral tablet, PO, Daily, 0 2019 [facility] ast extended release Refill(s) sevelamer 800 mg = 1 tab, Active carbonate 800 MG PO, 0 Refill(s) 2018 [facility] Oral Tablet [Renvela] pregabalin 50 MG 50 mg = 1 cap, Active Oral Capsule PO, BID, [address] [facility] t [Lyrica] Refill(s) Insulin Glargine 35 units, Active 100 UNT/ML SUB-Q, Daily, 0 2018 [facility] Injectable Refill(s) Solution [Lantus] Allergies, Adverse Reactions, Alerts Substance Category Reaction Severity Reaction Status Date Comments S ource type Reported No Known Assertion Drug Medication allergy [facility] Allergies Immunizations No Data Provided for This Section Results Order Name Results Value Reference Date Interpretation Comments Lata rce Range Gram Stain No Wbc'S Or Organisms Seen 03/07 Report Many RBC's [facility] C Synov w/GS No Growth; 03/07 [facility] CHEM PANEL Uric Acid 2.1 3.8 - 8.0 03/06 [facility] HEMATOLOGY INR 0.99 0.85 - 03/06 1.17 [facility] HEMATOLOGY PT 12.9 12.0 - 03/06 14.7 [facility] HEMATOLOGY PTT 43.3 22.9 - 03/06 35.8 [facility] HEMATOLOGY Sed Rate >100 0 - 15 03/06 [facility] IMMUNOLOGY Cyc Cit Pep <0.5 <=2.9 03/06 Ab unit/mL [facility] IMMUNOLOGY RF Qnt <10 0 - 20 03/06 [facility] IMMUNOLOGY C-REACTIVE 138.0 <=2.9 mg/L 03/06 PROTEIN /2018 [facility] Culture: Culture In 03/06 Anaerobic Progress [facility] CHEM PANEL eGFR 13 03/06 Result Comment: The [facility] eGFR is calculated using the CKD-EPI [...] 3.5 - 5.1 06/12 MH Lvl /2019 [facility] CHEM PANEL Chloride Lvl 102 95 - 109 03/06 [facility] CHEM PANEL Creatinine 4.69 0.50 - 06/ MH Lvl 1.40 /2019 [facility] CHEM PANEL Sodium Lvl 137 135 - 145 / [facility] CHEM PANEL Glucose Lvl 162 70 - 99 / [facility] CHEM PANEL BUN 15 7 - 22 / [facility] CHEM PANEL CO2 24 24 - 32 / [facility] CHEM PANEL Calcium Lvl 8.5 8.5 - 10.5 03/06 [facility] CHEM PANEL AGAP 15.7 10.0 - 06/ MH 20.0 /2019 [facility] HEMATOLOGY Eosinophils 0.3 0.0 - 0.5 /12 MH # /2019 [facility] HEMATOLOGY Basophils # 0.1 0.0 - 0.2 / [facility] HEMATOLOGY Neutrophils 3.7 1.5 - 8.1 / MH # /2019 [facility] HEMATOLOGY Lymphocytes 0.8 1.0 - 5.5 / MH # /2019 [facility] HEMATOLOGY Monocytes # 0.5 0.0 - 0.8 / [facility] HEMATOLOGY Lymphocytes 15.8 20.0 - 03/06 MH 40.0 /2019 [facility] HEMATOLOGY Segs 68.7 45.0 - 03/06 MH 75.0 /2019 [facility] HEMATOLOGY Basophils 1.9 0.0 - 1.0 / [facility] HEMATOLOGY Eosinophils 4.9 0.0 - 4.0 / [facility] HEMATOLOGY Monocytes 8.7 2.0 - 12.0 / [facility] HEMATOLOGY RDW 15.4 11.5 - 03/06 MH 14.5 [facility] HEMATOLOGY MCH 30.1 27.0 - 03/06 MH 31.0 /2018 [facility] HEMATOLOGY Platelet 351 133 - 450 / [facility] HEMATOLOGY Hgb 9.6 14.0 - 06 MH 18.0 [facility] HEMATOLOGY MCHC 32.6 32.0 - 06 MH 36.0 [facility] HEMATOLOGY Hct 29.4 42.0 - 03/06 54.0 [facility] HEMATOLOGY MCV 92.2 80.0 - 03/06 94.0 [facility] HEMATOLOGY MPV 7.2 7.4 - 10.4 03/06 [facility] HEMATOLOGY RBC 3.19 4.70 - 03/06 MH 6.10 [facility] HEMATOLOGY WBC 5.4 3.7 - 10.4 03/06 [facility] IMMUNOLOGY Hep Bs Ag Negative Negative 03/05 *NA* /2018 [facility] (03/05/19 8:30 AM) GENTAMICIN Gram Stain Rare Gram Positive Cocci 03/05 MH :SUSC:PT:I [facility] Culture: Few Enterobacter cloacae 03/05 MH :SUSC:PT:I Wound/Absces Few Klebsiella pneumoniae ssp pneumoniae [facility] SOLATE:ORD s w/Gram Few Pseudomonas aeruginosa QN:EDDY Stain Few Citrobacter koseri Growth In Subculture Broth Only : Staphylococcus Species , Not S. aureus [facility] Citrobacter Citrobacte 03/05 MH :SUSC:PT:I koseri r koseri [facility] Pseudomonas Pseudomona 03/05 MH :SUSC:PT:I aeruginosa s [facility] aeruginosa QN:EDDY [facility] Klebsiella Klebsiella 03/05 MH :SUSC:PT:I pneumoniae pneumoniae [facility] SOLATE:ORD ssp ssp QN:EDDY pneumoniae pneumoniae [facility] Enterobacter Enterobact 03/05 MH :SUSC:PT:I cloacae er cloacae [facility] SOLATE:ORD QN:EDDY CHEM PANEL Uric Acid 8.1 3.8 - 8.0 03/05 [facility] CHEM PANEL Lactic Acid 0.8 0.5 - 2.2 03/05 Lvl [facility] CHEM PANEL AST 19 0 - 37 03/05 [facility] CHEM PANEL Bili Total 0.4 0.2 - 1.3 03/05 [facility] CHEM PANEL eGFR 4 03/05 Result Comment: The [facility] eGFR is calculated using the CKD-EPI [...] PANEL ALT 15 0 - 65 03/05 [facility] CHEM PANEL Albumin Lvl 2.5 3.5 - 5.0 03/05 [facility] CHEM PANEL Total 6.0 6.4 - 8.4 03/05 Protein [facility] CHEM PANEL Alk Phos 303 39 - 136 03/05 [facility] CHEM PANEL Creatinine 12.60 0.50 - 03/05 Lvl 1.40 [facility] CHEM PANEL BUN 55 7 - 22 03/05 [facility] CHEM PANEL Glucose Lvl 157 70 - 99 03/05 [facility] CHEM PANEL Chloride Lvl 100 95 - 109 03/05 [facility] CHEM PANEL Potassium 4.3 3.5 - 5.1 03/05 Lvl /2018 [facility] CHEM PANEL Sodium Lvl 135 135 - 145 03/05 [facility] CHEM PANEL Calcium Lvl 7.6 8.5 - 10.5 03/05 [facility] CHEM PANEL CO2 25 24 - 32 03/05 [facility] CHEM PANEL AGAP 14.3 10.0 - 03/05 20.0 [facility] CHEM PANEL B/C Ratio 4 6 - 25 03/05 [facility] CHEM PANEL Globulin 3.5 2.7 - 4.2 03/05 [facility] CHEM PANEL A/G Ratio 0.7 0.7 - 1.6 03/05 [facility] HEMATOLOGY Basophils 2.3 0.0 - 1.0 03/05 [facility] HEMATOLOGY Neutrophils 3.3 1.5 - 8.1 03/05 MH # /2019 [facility] HEMATOLOGY Lymphocytes 1.0 1.0 - 5.5 03/05 MH # /2019 [facility] HEMATOLOGY Monocytes # 0.6 0.0 - 0.8 03/05 [facility] HEMATOLOGY Eosinophils 0.3 0.0 - 0.5 03/05 MH # /2018 [facility] HEMATOLOGY Segs 63.2 45.0 - 03/05 MH 75.0 /2018 [facility] HEMATOLOGY Lymphocytes 18.1 20.0 - 03/05 MH 40.0 /2018 [facility] HEMATOLOGY Basophils # 0.1 0.0 - 0.2 03/05 [facility] HEMATOLOGY Monocytes 11.0 2.0 - 12.0 03/05 [facility] HEMATOLOGY Eosinophils 5.4 0.0 - 4.0 03/05 [facility] HEMATOLOGY MCH 29.8 27.0 - 03/05 MH 31.0 [facility] HEMATOLOGY MCHC 33.1 32.0 - 03/05 MH 36.0 [facility] HEMATOLOGY WBC 5.3 3.7 - 10.4 03/05 [facility] HEMATOLOGY RBC 2.61 4.70 - 03/05 MH 6. [facility] HEMATOLOGY Hgb 7.8 14.0 - 03/05 MH 18.0 [facility] HEMATOLOGY Hct 23.5 42.0 - 03/05 MH 54.0 [facility] HEMATOLOGY MCV 90.1 80.0 - 03/05 MH 94.0 [facility] HEMATOLOGY MPV 7.6 7.4 - 10.4 03/05 [facility] HEMATOLOGY Platelet 295 133 - 450 03/05 [facility] HEMATOLOGY RDW 15.6 11.5 - 03/05 MH 14. [facility] HEMATOLOGY Sed Rate >100 mm/hr 0 - 15 03/05 [facility] IMMUNOLOGY C-REACTIVE 202.0 <=2.9 mg/L 03/05 [facility] HEMATOLOGY WBC 6.0 3.7 - 10.4 02/21 [facility] HEMATOLOGY Hct 33.0 42.0 - 02/21 MH 54.0 [facility] HEMATOLOGY RBC 3.64 4.70 - 02/21 MH 6. [facility] HEMATOLOGY MCV 90.5 80.0 - 02/21 MH 94.0 [facility] HEMATOLOGY Hgb 10.8 14.0 - 02/21 MH 18.0 [facility] HEMATOLOGY RDW 14.6 11.5 - 02/21 MH 14. [facility] HEMATOLOGY Platelet 224 133 - 450 02/21 [facility] HEMATOLOGY MCHC 32.9 32.0 - 02/21 MH 36.0 [facility] HEMATOLOGY MCH 29.8 27.0 - 02/21 MH 31.0 [facility] HEMATOLOGY MPV 7.8 7.4 - 10.4 02/21 [facility] BLOOD BANK Antibody Negative 02/21 RESULTS Scrn (02/21/19 10:03 AM) /2018 [facility] BLOOD BANK ABO/Rh O POS 02/21 MH RESULTS /2018 [facility] ELECTROLYT Potassium 4.3 3.5 - 5.1 02/21 ES Lvl /2018 [facility] CHEM PANEL eGFR 7 02/21 Result Comment: The [facility] eGFR is calculated using the CKD-EPI [...] AGAP 14.2 10.0 - 02/21 MH 20.0 [facility] CHEM PANEL BUN 35 7 - 22 02/21 [facility] CHEM PANEL Chloride Lvl 104 95 - 109 02/21 [facility] CHEM PANEL Calcium Lvl 8.4 8.5 - 10.5 02/21 [facility] CHEM PANEL CO2 26 24 - 32 02/21 [facility] CHEM PANEL Creatinine 7.88 0.50 - 02/21 MH Lvl 1.40 /2018 [facility] CHEM PANEL Glucose Lvl 75 70 - 99 02/21 [facility] CHEM PANEL Potassium 4.2 3.5 - 5.1 02/21 Lvl [facility] CHEM PANEL Sodium Lvl 140 135 - 145 02/21 [facility] BLOOD BANK Antibody Negative 01/29 RESULTS Scrn (01/29/19 10:27 AM) /2018 [facility] BLOOD BANK ABO/Rh O POS 01/29 MH RESULTS /2018 [facility] CHEM PANEL eGFR 6 01/29 Result Comment: The [facility] eGFR is calculated using the CKD-EPI [...] Chloride Lvl 104 95 - 109 01/29 [facility] CHEM PANEL Potassium 4.3 3.5 - 5.1 / Lvl /2018 [facility] CHEM PANEL CO2 27 24 - 32 01/29 [facility] CHEM PANEL Calcium Lvl 8.2 8.5 - 10.5 01/29 [facility] CHEM PANEL Glucose Lvl 113 70 - 99 01/29 [facility] CHEM PANEL Sodium Lvl 140 135 - 145 01/29 [facility] CHEM PANEL Creatinine 8.24 0.50 - 01/29 Lvl 1.40 /2018 [facility] CHEM PANEL BUN 45 7 - 22 / [facility] CHEM PANEL AGAP 13.3 10.0 - 05/ MH 20.0 /2019 [facility] HEMATOLOGY Monocytes # 0.6 0.0 - 0.8 05/ [facility] HEMATOLOGY Eosinophils 0.3 0.0 - 0.5 / # /2019 [facility] HEMATOLOGY Basophils # 0.1 0.0 - 0.2 / [facility] HEMATOLOGY Monocytes 11.3 2.0 - 12.0 01/29 [facility] HEMATOLOGY Basophils 1.5 0.0 - 1.0 / [facility] HEMATOLOGY Eosinophils 5.5 0.0 - 4.0 05/ /2018 [facility] HEMATOLOGY Lymphocytes 15.4 20.0 - 01/29 MH 40.0 /2018 [facility] HEMATOLOGY Segs 66.3 45.0 - 01/29 MH 75.0 /2018 [facility] HEMATOLOGY Neutrophils 3.6 1.5 - 8.1 / MH # /2018 [facility] HEMATOLOGY Lymphocytes 0.8 1.0 - 5.5 / MH # /2018 [facility] HEMATOLOGY PTT 43.7 22.9 - 01/29 MH 35.8 /2018 [facility] HEMATOLOGY INR 1.00 0.85 - 01/29 MH 1.17 /2018 [facility] HEMATOLOGY PT 13.0 12.0 - 01/29 MH 14.7 /2018 [facility] HEMATOLOGY Platelet 243 133 - 450 01/29 /2018 [facility] HEMATOLOGY MPV 7.5 7.4 - 10.4 01/29 /2018 [facility] HEMATOLOGY WBC 5.4 3.7 - 10.4 01/29 /2018 [facility] HEMATOLOGY RBC 3.90 4.70 - 01/29 6.10 [facility] HEMATOLOGY MCH 30.3 27.0 - 01/29 MH 31.0 /2018 [facility] HEMATOLOGY MCHC 33.6 32.0 - 01/29 MH 36.0 /2018 [facility] HEMATOLOGY Hgb 11.8 14.0 - 01/29 MH 18.0 /2018 [facility] HEMATOLOGY MCV 90.1 80.0 - 01/29 94.0 /2018 [facility] HEMATOLOGY Hct 35.1 42.0 - 01/29 MH 54.0 /2018 [facility] HEMATOLOGY RDW 14.6 11.5 - 01/29 MH 14.5 /2018 [facility] BLOOD BANK Antibody Negative 12/11 RESULTS Scrn (12/11/18 12:35 PM) /2018 [facility] BLOOD BANK ABO/Rh O POS 12/11 RESULTS /2018 [facility] CHEM PANEL eGFR 6 12/11 Result Comment: The [facility] eGFR is calculated using the CKD-EPI [...] Glucose Lvl 62 70 - 99 12/11 [facility] CHEM PANEL BUN 62 7 - 22 12/11 [facility] CHEM PANEL Calcium Lvl 8.1 8.5 - 10.5 12/11 [facility] CHEM PANEL CO2 27 24 - 32 12/11 [facility] CHEM PANEL Chloride Lvl 105 95 - 109 12/11 [facility] CHEM PANEL Potassium 6.0 3.5 - 5.1 12/11 Lvl /2018 [facility] CHEM PANEL Sodium Lvl 140 135 - 145 12/11 [facility] CHEM PANEL Creatinine 8.46 0.50 - 12/11 MH Lvl 1.40 [facility] CHEM PANEL AGAP 14.0 10.0 - 12/11 MH 20.0 [facility] HEMATOLOGY Basophils 1.9 0.0 - 1.0 12/11 [facility] HEMATOLOGY Neutrophils 2.7 1.5 - 8.1 12/11 MH # /2018 [facility] HEMATOLOGY Eosinophils 4.4 0.0 - 4.0 12/11 [facility] HEMATOLOGY Monocytes 11.6 2.0 - 12.0 12/11 [facility] HEMATOLOGY Basophils # 0.1 0.0 - 0.2 12/11 [facility] HEMATOLOGY Lymphocytes 1.1 1.0 - 5.5 12/11 MH # /2019 [facility] HEMATOLOGY Eosinophils 0.2 0.0 - 0.5 12/11 MH # /2019 [facility] HEMATOLOGY Monocytes # 0.5 0.0 - 0.8 12/11 [facility] HEMATOLOGY Lymphocytes 23.7 20.0 - 03 MH 40.0 /2018 [facility] HEMATOLOGY Segs 58.4 45.0 - 12/11 MH 75.0 [facility] HEMATOLOGY PTT 42.9 22.9 - 12/11 MH 35.8 /2018 [facility] HEMATOLOGY INR 1.04 0.85 - 12/11 MH 1.17 /2018 [facility] HEMATOLOGY PT 13.4 12.0 - 12/11 MH 14.7 [facility] HEMATOLOGY MCHC 32.3 32.0 - 12/11 36.0 [facility] RDW 16.9 11.5 - 12/11 14.5 [facility] HEMATOLOGY MCH 30.1 27.0 - 12/11 31.0 [facility] Platelet 214 133 - 450 12/11 [facility] MPV 8.1 7.4 - 10.4 12/11 [facility] MCV 93.1 80.0 - 12/11 94.0 [facility] Hgb 11.0 14.0 - 12/11 18.0 [facility] Hct 34.1 42.0 - 12/11 54.0 [facility] WBC 4.6 3.7 - 10.4 12/11 [facility] RBC 3.66 4.70 - 12/11 6.10 [facility] Hgb A1C 5.0 <=5.6 % 12/11 [facility] Pathology Reports No Data Provided for This Section Diagnostic Reports Report Value Date Source Ankle wo contrast MRI Clinical Indication: Right a nkle pain and swelling - history of gout; rule out osteomyelitis 03/06/2019 [facility] Comparison: Right ankle series 03/04/2019 TECHNIQUE: [...] with percutaneous fluid sampling and analysis. SL: [id number] Foot wo contrast MRI Clinical Indication: - hist ory of gout , right foot and ankle pain 03/06/2019 [facility] Comparison: Right ankle series 03/04/2019 TECHNIQUE: [...] foot. Dorsal subcutaneous edema. No abscess. SL: [id number] Arthrocentesis small Please discard the moderate sedation portion of the report. Moderate sedation was not utilized during this exam. 03/06/2019 [facility] Joint DX PROCEDURE: Sonographic guided biopsy [...] record is perma nently stored in the [employer] information system. The personal supervised moderate sedation [...] views DX Patient Name: MARNIE LYLES 03/04/2019 [facility] : 1960; Age: 58 years y/o Male MR: [id number] Study: 3 view examination of the right [...] views DX Chest 2 views DX 12/11/2018 [facility] CLINICAL HISTORY: Coughing - pre-op COMPARISON: [...] No other significant abnormality is noted. SL: [id number] Consultation Notes No Data Provided for This Section Discharge Summaries No Data Provided for This Section History and Physicals No Data Provided for This Section Vital Signs Vital Sign Value Date Comments Source Respitory Rate 18 03/07/2019 [facility] Systolic (mm Hg) 149 03/07/2019 [facility] t Diastolic (mm Hg) 69 03/07/[address] [facility] [address] Temperature Oral (F) 98.2 F 03/07/2019 [facility] Rate 69 03/07/2019 [facility] Respitory Rate 12 03/07/2019 [facility] Respitory Rate 18 03/07/2019 [facility] Systolic (mm Hg) 159 03/07/2019 [facility] t Diastolic (mm Hg) 68 03/07/[address] Heart Rate 68 03/07/2019 [facility] Temperature Oral (F) 97.6 F 03/07/2019 [facility] Systolic (mm Hg) 157 03/07/2019 [facility] Diastolic (mm Hg) 67 03/07/[address] Heart Rate 69 03/07/2019 [facility] Temperature Oral (F) 98.3 F 03/07/2019 [facility] Height 172.72 cm 03/04/2019 [facility] Weight 92.227 03/04/2019 [facility] BMI Calculated 30.92 03/04/2019 [facility] Respitory [...] 01/29/2019 [facility] BMI Calculated 30.4 01/29/2019 [facility] Weight 90.682 01/29/2019 [facility] Height 172.72 [...] 12/11/2018 [facility] Heart Rate 69 12/11/2018 [facility] Encounters Location Location Encounter Encounter Reason Attending ADM DC Stat us Source Details Type Number For Provider Date Date Visit [facility] Surgery [id number] Stephan 12/20 12/20 [facility] Outpatient [id number] Juventino 12/25 Active [facility] [place] [facility] Phone [id number] 01/15 01/17 Misc her Neurology [facility] [place] [facility] [id number] Juventino 01/31 Active [facility] [place] [facility] Ambulatory [id number] Juventino 01/31 01/31 [facility] [place] [facility] Surgery [id number] Stephan 02/21 02/21 [facility] Inpatient [id number] Rolan Rice 03/04 03/07 [facility] Procedures Procedure Code Date Perfomer Comments Source Stent placement [id number] 07/26[facility] [id number] 11/23/2005 [facility] [id number] [facility] arteriovenous fistula operation Assessment and Plan Assessment and Plan Date Source Extracted from:Title: History and Physical 03/07/2019 [facility] Author: Veena De La Rosa MD Date: 03/04/19 58-year-old male with history of ESRD, t ype 2 diabetes, hypertension, CAD status post stentswho presented to a freestanding ED in [place] complaining of swelling and purulent drainage coming from his right AV fistula. 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 Sexual Sexually active: No. Exercise 1 Employment/School Status: Employed. Work/School description: [employer] [place] Alcohol Current, Type Wine. Frequency: 1-2 times per week.2 Smoking Status Former smoker; Type: Cigarettes; Exposur e to Tobacco Smoke None; Cigarette Smoking Last 365 Days No; Reg Smoking Cessation Counseling No; Other Tobacco Frequency Pt. quit in 2016.; entered on: 03/04/19 [id number] Social History TypeResponse 12/11/2018 [facility] o Substance Abuse Use: None. Employment/School Status: [...]
--- OUTSIDE RECORDS SUMMARY | 2020-10-02 10:12 | XMS REPORT | Continuity of Care Document ---
:1960 Author Organization [facility] t Address [address] Shrestha. [address] [place] [id number] Care Team Providers Name Role Phone Estephania BRAGG Primary Care Physician Aamir Xie MD Attending Clinician Fior BRAGG Attending Clinician Lolly DONOHUE Attending Clinician [...] Expiration Date Sour ce Number BCBSBCBS CHOICE [id number] 2019 2020 [place] PPO/FEDERAL EMPL 6 00:00:00 23:59:59 Nurais shari [id number] 2019-2021PPO HUMANA [id number] 2020 [place] MEDICAREHUMANA 00:00:00 [place] MEDICARE PPO/PFFS/ERS [id number] 2020 -PresentPPO Problems Condition Condition Condition Status Onset Resolution Last Treating Co mments Source Name Details Category Date Date Treatment Clinician Date Alcohol Alcohol Disease Active [place] use use 7 [facility] disorder, disorder, 00:00: st severe, severe, 00 dependence dependence 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 duced mood duced mood 730 Me thodi disorder disorder 00:00: st 00 Charcot Charcot Disease Active 2018-09 [place] ankle, ankle, 0-15 [facility] right right 00:00: st 00 Non-healin Non-healin Disease Active [place] g ulcer of g ulcer of 9-11 Me thodi ankle, ankle, 00:00: st right, right, 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 AV GRAFT Diagnosis Active 2019-03-11 M emoria MALFUNCTIO 6-10 22:05:00 l N AV GRAFT 00:00: Braulio n MALFUNCTIO 00 N Active 03/04/2019 [facility] RIGHT UE Diagnosis Active 2019-03-04 M emoria AV FISTULA 6-10 17:22:00 l MALFUNCTIO RIGHT UE 00:00: He rmann N AV FISTULA 00 MALFUNCTIO N Active 03/04/2019 [facility] UNK Diagnosis Active 2019-04-23 Mem oria 4-16 13:47:00 l UNK 00:00: [place] 00 Active 01/08/2019 [facility] N18.6 Diagnosis Active 2018-12-20 Mem oria 3-01 07:30:00 l N18.6 00:00: [place] 00 Active 11/23/2018 [facility] Mood Mood Disease Active [place] disorder disorder -31 Method i due to a due to a 00:00: st general general 00 medical medical condition condition Dyspnea Dyspnea Disease Active 2017-09 [place] 2- Methodi 00:00: st 00 SABAS SABAS Disease Active 2017-09 [place] (obstructi (obstructi - Me odi ve sleep ve sleep 00:00: st apnea) apnea) 00 COPD COPD Disease Active 2017-09 [place] (chronic (chronic 2-11 Method i obstructiv obstructiv 00:00: st e e 00 pulmonary pulmonary disease) disease) with acute with acute bronchitis bronchitis Pneumonia Pneumonia Disease Active 2017-09 Sascha soto 10-23 Methodi 00:00: st 00 Encephalop Encephalop Disease Active 2017-09 H macy aranda 0 Methodi 00:00: st 00 History of History of Disease Active Overview : [place] blood blood in [facility] transfusio transfusio July- n n 2016. Wears Wears Disease Active [place] glasses glasses Methodi st Never Never Disease Active [place] exercises exercises Meth megan st Immunizati Immunizati Disease Active [facility] ons up to ons up to Meth megan date date st Unspecifie Problem 2019-03-09 M emoria d 22:22:51 l complicati Braulio n on of Unspecifie cardiac d and complicati vascular on of prosthetic cardiac device, and implant vascular and graft, prosthetic initial device, encounter implant and graft, initial encounter 03/09/2019 [facility] Heart Problem Resolve 2019-03-09 Fernie edi failure d 22:22:51 l (disorder) Heart Meghna nn failure (disorder) Resolved Problem 03/09/2019 [facility] Myocardial Problem Resolve 2019-03-09 Memoria infarction d 22:22:51 l (disorder) Braulio n Myocardial infarction (disorder) Resolved Problem 03/09/2019 [facility] Diabetes Problem Active 2019-03-09 Mem oria mellitus 22:22:51 l (disorder) Diabetes He rmann mellitus (disorder) Active Problem 03/09/2019 [facility] Dyspnea on Problem Active 2019-03-09 M emoria exertion 22:22:51 l (finding) Dyspnea Herm helen on exertion (finding) Active Problem 03/09/2019 [facility] End stage Problem Active 2019-03-09 Me moria renal 22:22:51 l failure on End Braulio n dialysis stage (disorder) renal failure on dialysis (disorder) Active Problem 03/09/2019 [facility] Hypertensi Problem Active 2019-03-09 M emoria ve 22:22:51 l disorder, Ganesh systemic Hypertensi arterial ve (disorder) disorder, systemic arterial (disorder) Active Problem 03/09/2019 [facility] Sleep Problem Active 2019-03-09 Memor ia apnea 22:22:51 l (finding) Sleep Braulio n apnea (finding) Active Problem 03/09/2019 [facility] Hand pain Problem Active 2019-03-09 Me moria (finding) 22:22:51 l Hand [place] pain (finding) Active Problem 03/09/2019 [facility] Paresthesi Problem Active 2019-03-09 M emoria a 22:22:51 l (finding) Ganesh Paresthesi a (finding) Active Problem 03/09/2019 [facility] Simple Problem Active 2019-03-09 Memor ia obesity 22:22:51 l (disorder) Simple Herm helen obesity (disorder) Active Problem 03/09/2019 [facility] Sudden Problem Active 2019-03-09 Memor ia 22:22:51 l (finding) Sudden Meghna nn (finding) Active Problem 03/09/2019 [facility] MECH COMPL Diagnosis Active 2019-03-11 Memoria OF 22:05:00 l SURGICALLY [facility] Braulio n CREATED COMPL OF ARTERIO SURGICALLY CREATED ARTERIO Active [facility] UNSP COMP Diagnosis Active 2019-03-04 Memoria OF CARDIAC 17:22:00 l AND UNS [place] VASCULAR COMP OF PROSTH CARDIAC AND VASCULAR PROSTH Active [facility] TYPE 2 Diagnosis Active 2019-03-05 Mem oria DIABETES 08:15:00 l MELLITUS TYPE 2 Braulio n WITH DIABETES HYPERGLYCE MELLITUS WITH HYPERGLYCE Active [facility] PROTEINURI Diagnosis Active 2019-03-05 Memoria A, 08:15:00 l UNSPECIFIE Braulio n D PROTEINURI A, UNSPECIFIE D Active [facility] Allergies, Adverse Reactions, Alerts Allergy Allergy Status Severity Reaction(s) Onset Inactive Treating Comm ents Source Name Type Date Date Clinician No Known No Known Active Memori a Medicati Medicati l on on Ganesh Burgess s s Family History Family Member Diagnosis Comments Start Date Stop Date Source Natural brother Cirrhosis Leija M ethodist Natural brother Diabetes [facility] ethodist Natural father Heart disease [place]ist Natural father Hypertension [place]ianist Natural father Stroke [facility] thodist Natural mother Diabetes [facility] thodist Natural mother Hypertension [place] Natural mother Kidney disease [place] Social History Social Habit Start Date Stop Date Quantity Comments Source Sex Assigned At [facility] ethodi Cigarettes smoked 2020-08-04 2020-08-04 Heladio Jung current (pack per 00:00:00 00:00:00 day) - Reported Tobacco use and 2020-08-04 2020-08-04 Never used [facility] ethodist exposure 00:00:00 00:00:00 Alcohol intake 2020-08-04 2020-08-04 Current drinker [place] 00:00:00 00:00:00 of alcohol (finding) Social History 2018-12-11 2018-12-11 [facility] richelle 17:48:18 17:48:18 Alcohol Comment 2017-11-02 2017-11-02 stopped in [facility] 00:00:00 00:00:July. History of tobacco 2016-01-24 Current smoker [place] use 00:00:00 Smoking Status Start Date Stop Date Source Former smoker 2020-08-04 00:00:00 2020-08-04 00:00:00 Heladio Jung Medications Ordered Filled Start Stop Current Ordering [...] 400 ONCE DAILY atorvastati 2019-09 Yes atorvastat Heladio n (LIPITOR) 1-10 in 10 mg Meth megan 10 MG 14:41: tablet st tablet 04 clopidogrel 2019-09 Yes clopidogre Heladio (PLAVIX) 75 1-10 l 75 mg Metho di mg tablet 14:41: tablet st 04 traZODone 2019-09 Yes 100mg QD Take 100 S[place]cha [address] (DESYREL) 1-10 mg by Methodi 100 MG 14:41: mouth st tablet 04 nightly. zolpidem 2019- No 10mg QD Take 10 mg [place] (AMBIEN) 5 7-02 by mouth Meth megan MG tablet 12:21: 00:00 nightly as s t 48 :00 needed for sleep. pregabalin 2019- No 25mg Q.5D Take 25 mg Leija (LYRICA) 25 03-26-02 by mouth 2 M ethodi MG capsule 12:21: 00:00 (two) st 25 :00 times a day. losartan 2019- No 100mg QD Take 100 S[place]cha [address] (COZAAR) 7 07-02 mg by Methodi 100 MG 12:20: 00:[address] tablet 52 :00 daily. acetaminoph 2018-09- No TK 1 T PO [place] en-codeine 0-06 -02 BID PRF Metho di (TYLENOL 00:00: 00:00 [...] 6-13 tab, PO, l tablet 21:30: Bedtime, [place] 00 PRN as needed for insomnia, X 30 day, # 30 tab, 0 Refill(s) predniSONE Yes 60 mg = 3 Me moria 20 mg oral 6-13 tab, PO, l tablet 21:30: Daily, Ganesh 00 Take 3 tablets for 60 mg dose, X 4 day, # 12 tab, 0 Refill(s), Pharmacy: [facility] [place] [id number] pantoprazol Yes 40 mg = 1 M emoria e 40 mg 6-13 tab, PO, l oral 21:30: Before Ganesh enteric 00 Breakfast, coated # 30 tab, tablet 0 Refill(s), Pharmacy: [facility] [place] [id number] Colchicine Yes 0.6 mg = 1 M emoria 0.6 MG Oral 6-13 tab, PO, l Tablet 21:30: BID, # 60 Braulio n 00 tab, 0 Refill(s), Pharmacy: [facility] [place] [id number] Levofloxaci Yes 500 mg = 1 Memoria n 500 MG 6-13 tab, PO, l Oral Tablet 21:30: Q24H, X 10 [place] [Levaquin] 00 day, # 10 tab, 0 Refill(s), Pharmacy: [facility] [place] [id number] Protonix No Notes: Memoria 6-13 Tablet l 12:30: should not 00 be chewed or crushed. (Same as: Protonix) Solu-Medrol No Notes: Fernie edi 6-13 (Same l 02:00: as:Solu-ME Ganesh 00 DROL, A-Methapre d) Colchicine No 0.6 mg, 1 Me moria 6-12 tab, l 19:53: Route: PO, [place] 00 Drug form: TAB, BID, Dosing Weight 92.227, kg, Priority: NOW, Start date: 03/06/19 14:53:00 CDT, Duration: 30 day, Stop date: 04/05/19 9:00:00 CDT tamsulosin No Notes: Memor ia 6-12 (Same As: l 02:00: Flomax) "Do Not Crush" atorvastati No Notes: Fernie edi n 6-12 (Same As: l 02:00: Lipitor) Epogen No Notes: Memoria 6-11 (Same as: l 22:00: Procrit) epoetin olamide 84107 unit/1 ml VL. For dialysis use only. (Procrit) WASTE: F/P - Red; E -Red MEDICATION WASTE Product Size: 72500 unit Product Wasted: ___ unit vancomycin No Notes: Memor ia + Sodium 6-11 TIME l Chloride 22:00: CRITICAL Meghna nn 0.9% IV 100 00 MEDICATION mL (Same As: Vancocin) For adult patients only: Round to nearest 250 mg per Medical Staff approval Lactulose No Notes: Memori a 667 MG/ML 6-11 (Same l Oral 22:00: as:Chronul [place] Solution 00 ac) Fluticasone No Notes: Fernie edi propionate 6-11 (Same as: l 0.05 22:00: Flonase) Ganesh MG/ACTUAT 00 Metered Dose Nasal [place] [Flonase] Fluticasone Yes 1 spray, Me moria propionate 6-11 NASAL, l 0.05 19:55: BID, # 16 [place] MG/ACTUAT 00 gm, 0 Metered Refill(s) Dose Nasal [place] [Flonase] prasugrel No 60kg, Memori a 6-11 without l 14:00: history of [place] TIA/Ischem ic stroke and without likely bypass surgery Veltassa No 8.4 gm, Memori a 6-11 Route: PO, l 14:00: Drug form: Ganesh PDR/REC, Daily, Dosing Weight 92.227, kg, Start [...] e Expires in days from ____Date carvedilol 2018- No Notes: Memor ia 6-11 Give with l 14:00: food. [place] (Same As: Coreg) Aspirin 81 No Notes: Do Me moria MG Enteric 6-11 not crush l Coated 14:00: or chew. Ganesh Tablet 00 (Same As: Ecotrin) Nephro-Dana No Notes: Fernie edi Rx 6-11 (Same as: l 14:00: Nephro-Vit Ganesh e Rx and Diatx) Give with food. Bumetanide No Notes: Memor ia 6-11 (Same As: l 13:00: Bumex) NIFEdipine No Notes: Memor ia 30 mg oral 6-11 (Same as: l tablet, 12:30: Adalat CC, Herm helen extended 00 Procardia release XL) Give on empty stomach. Take 1 hour before or 2 hours after meal; "Avoid grapefruit and grapefruit juice". Do not crush Benadryl No 25 mg, 1 Memor ia 6-11 tab, l 09:26: Route: PO, Drug form: TAB, TID, Dosing Weight 92.227, kg, PRN Itching, Start date: 03/05/19 4:26:00 CDT, Duration: 30 day, Stop date: 04/04/19 4:25:00 CDT heparin 2018- No Notes: Memoria 6-11 porcine l 05:00: heparin zolpidem No Notes: Memoria 6-11 (Same As: l 04:03: Ambien) tramadol No Notes: Not Mem oria hydrochlori 6-11 to exceed l de 50 MG 03:42: 400mg/day. Her mcintyre Oral Tablet 00 (Same As: Ultram) tizanidine No Notes: Memor ia 6-11 (Same As: l 03:42: Zanaflex) Nitroglycer No Notes: Fernie edi in 0.4 MG 6-11 (Same l Sublingual 03:42: as:Nitroqu H [place] Tablet 00 ick, Nitrostat) "Do Not Crush" Sublingual tablet Eszopiclone No 3 mg, Memor ia - Route: PO, l 03:42: Drug form: [place] 00 TAB, Bedtime, Dosing Weight 92.227, kg, PRN Insomnia, Start date: 03/04/19 22:42:00 CDT, Duration: 30 day, Stop date: 04/03/19 22:41:00 CDT Albuterol No Notes: Memori a 0.833 MG/ML 03-05 (Same as: l / 03:42: Duoneb) Ganesh Ipratropium 00 [place] 0.167 MG/ML Inhalant Solution Acetaminoph No Notes: Fernie edi en 325 MG / - (Same as: l Hydrocodone 03:13: [place] Meghna nn Bitartrate 00 325/5) Do 5 MG Oral not exceed Tablet 4gm/day of [[place] acetaminop 5/325] hen. Zofran No Notes: Memoria -11 (Same as: l 03:13: Zofran) Ganesh 00 MEDICATION WASTE Product Size: 4 mg Product Wasted: ___ mg Vancomycin No 1 ea, Memori a -11 Route: l 03:00: MISCGanesh 00 ONCALL, Dosing Weight 92.227, kg, Start date: 03/04/19 22:00:00 CDT, Duration: 10 day, Stop date: 03/14/19 21:59:00 CDT, Pharmacy to dose, ABX Indication : Skin/Soft Tissue Infection cefepime No Notes: Memoria 6-11 (Same As: l 03:00: Maxipime) Ganesh 00 MEDICATION WASTE Product Size: 1000 mg Product [...] Stop Solution date: 03/04/19 21:22:00 CDT Insulin 2018-0 No Notes: Memoria Lispro 6-11 (Same as: l 02:21: Humalog) Roll in palms of hands gently; Do not shake vigorously . WASTE: F/P - Black; E - Municipal Trash Bin Stable for 28 days at room temperatur e. Expires in days from ____Date Glucagon 2019-0 No 1 mg, Memoria 6-11 Route: IM, l 02:21: Drug form: PDR/INJ, PRN, Dosing Weight 92.227, kg, PRN Blood Glucose Results, Start date: 03/04/19 21:21:00 CDT, Duration: 30 day, Stop date: 04/03/19 21:20:00 CDT Dextrose 2018-0 No 25 gm, 50 Fernie edi 50% Syringe 6-11 mL, Route: l 02:21: IVP, Drug Form: INJ, Dosing Weight 92.227, kg, PRN, PRN Blood Glucose Results, Start date: 03/04/19 21:21:00 CDT, Duration: 30 day, Stop date: 04/03/19 21:20:00 CDT Acetaminoph 2018-0 No Notes: Do M emoria en 6-11 not exceed l 02:21: 4 gm/day. (Same as: Tylenol) tizanidine Yes 2 mg = 1 Mem oria 2 mg oral 6-11 cap, PO, l capsule 01:12: Q8H, PRN Braulio n 00 for muscle spasms, # 90 cap, 0 Refill(s) zolpidem 10 2019-0 No 10 mg = 1 M emoria mg oral 6-11 tab, PO, l tablet 01:12: Bedtime, 00 PRN as needed for insomnia, 0 Refill(s) eszopiclone 2018-0 No 3 mg = 1 Me moria 3 mg oral 6-11 tab, PO, l tablet 01:12: Bedtime, Ganesh 00 PRN for insomnia, 0 Refill(s) Albuterol 2018- Yes 3 mL, Memoria 0.833 MG/ML 6-11 INHALATION l / 01:12: , Q4H, PRN [place] Ipratropium 00 Wheezing, [place] # 30 ea, 1 0.167 MG/ML Refill(s) Inhalant Solution NIFEdipine Yes 30 mg = 1 Me moria 30 mg oral 6-11 tab, PO, l tablet, 01:12: Before [place] extended 00 Breakfast, release # 30 tab, 0 Refill(s) Acetaminoph No 1 tab, PO, Memoria en 300 MG / 6-11 Q8H, PRN l Codeine 01:12: Pain Score Herm helen Phosphate 00 6-10, 0 30 MG Oral Refill(s) Tablet [Tylenol with Codeine #3] patiromer Yes 8.4 gm, Memor ia 8400 MG 6-11 PO, Daily, l Powder for 01:12: 0 [place] Oral 00 Refill(s) Suspension [Veltassa] atorvastati Yes 10 mg = 1 M emoria n 10 mg 6-11 tab, PO, l oral tablet 01:12: Bedtime, # Ganesh 00 90 tab, 0 Refill(s) Lactulose Yes [...] ia 5-30 (Same as: l 19:37: Romazicon) Fentanyl No Notes: Memoria 5-30 (Same as: [...] Itching, Start date: 02/21/19 14:28:00 CDT phenylephri 2018-0 No Route: IV, Memoria ne (ANES) 5-30 Drug form: l 18:58: INJ, ONCE, Stop date: 02/21/19 13:58:00 CDT Acetaminoph 2019-0 No Notes: Do M emoria en 325 MG / 5-30 not exceed l Hydrocodone 18:41: 4gm/day of [place] Bitartrate 00 acetaminop 10 MG Oral hen. Tablet (Same as: [place] 325/10) Morphine 2018-0 No 2 mg, 1 Memori a 5-30 mL, Route: l 18:41: IVP, Drug form: SOLN, Q3H, Dosing Weight 90.682, kg, PRN Pain Score 1-3, Start date: 02/21/19 13:41:00 CDT, Duration: 30 day, Stop date: 03/23/19 13:40:00 CDT ePHEDrine 2018-0 No Route: IV, Me moria (ANES) 5-30 Drug form: l 18:23: INJ, ONCE, Stop date: 02/21/19 13:23:00 CDT metoclopram 2018-0 No Route: IV, Memoria sara (ANES) 5-30 Drug form: l 18:07: INJ, ONCE, Stop date: 02/21/19 13:07:00 CDT lidocaine 2019-0 No Route: IV, Me moria (ANES) 5-30 Drug form: l 18:07: INJ, ONCE, Stop date: 02/21/19 13:07:00 CDT propofol 2019-0 No Route: IV, Mem oria (ANES) 5-30 Drug form: l 18:07: INJ, ONCE, [place] 00 Stop date: 02/21/19 13:07:00 CDT fentaNYL 2019-0 No Route: IV, Mem oria (ANES) 5-30 Drug form: l 18:07: INJ, ONCE, Stop date: 02/21/19 13:07:00 CDT midazolam 2019-0 No Route: IV, Me moria (ANES) 5-30 Drug form: l 18:07: SOLN, Ganesh 00 ONCE, Stop date: 02/21/19 13:07:00 CDT ondansetron 2018-0 No Route: IV, Memoria (ANES) 5-30 Drug form: l 17:42: INJ, ONCE, Stop date: 02/21/19 12:42:00 CDT ceFAZolin 2018-0 No Route: IV, moria (ANES) 5-30 Drug form: l 17:42: INJ, ONCE, Stop date: 02/21/19 12:42:00 CDT vancomycin 2018- No Route: IV, M emoria (ANES) 1000 5-30 Drug form: l mg 17:10: INJ, Start date: 02/21/19 12:10:00 CDT, Stop date: 02/21/19 13:10:00 CDT Sodium 2018-0 No Route: IV, Memor ia Chloride 5-30 Total l 0.9% IV 16:52: Volume: [place] (ANES) 1000 00 1,000, mL Start date: 02/21/19 11:52:00 CDT, Stop date: 02/21/19 12:52:00 CDT Dextrose 2019- Yes 12.5 gm, Memor ia 50% Syringe 5-30 25 mL, l 16:30: Route: [place] 00 IVP, Drug Form: INJ, Dosing Weight 90.682, [...] 03/23/19 9:48:00 CDT, 2.11, m2 Ancef + No Notes: Memoria sterile 5-07 (Same As: l water 20 mL 16:00: Ancef, Herm helen 00 Kefzol) MEDICATION WASTE Product Size: 1000 mg Product Wasted: ___ mg Vancomycin 2019-0 No 2001 mg: Me moria 5-07 infuse l 16:00: over 2.5 [place] 00 hours For adult patients only: Round to nearest 250 mg per Medical Staff approval MEDICATION WASTE Product Size: 1000 mg Product Wasted: ___ mg Insulin 2019- Yes 36 unit, Memori a Glargine -07 SUB-Q, l 100 UNT/ML 15:11: Daily, 0 Her mcintyre Injectable 00 Refill(s) Solution [Lantus] gabapentin Yes 300 mg = 1 M emoria 300 MG Oral 4-24 cap, PO, l Capsule 23:13: Daily, # Braulio n 43 30 cap, 3 Refill(s), Pharmacy: [facility] [id number] gabapentin 2018- No See Memoria 300 MG Oral 4-17 Instructio l Capsule 14:12: ns, 1 cap Meghna nn 00 PO after dialysis, # 30 cap, 2 Refill(s), Pharmacy: [id number] Ondansetron 0 No 4 mg, Memor ia 12-20 Route: l 14:13: IVP, ONCE, [place] 00 Dosing Weight 90.966, kg, PRN Nausea & Vomiting, Start date: 12/20/18 9:13:00 CDT Meperidine No 12.5 mg, Mem oria 12-20 Route: [...] Stop date: Limited # of times Naloxone 0 No 0.4 mg, Memori a 12-20 Route: [...] 12-20 Route: PO, l 14:13: Drug form: [place] 00 TAB, Q4H, Dosing Weight 90.966, kg, PRN Pain Score 4-6, Start date: 12/20/18 9:13:00 CDT, Duration: 30 day, Stop date: 01/19/19 9:12:00 CDT Labetalol 2019-0 No 10 mg, Memori a 12-20 Route: l 14:13: IVP, [place] 00 Q5Min, Dosing Weight 90.966, kg, PRN [...] 50 Memoria 12-20 microgram, l 14:13: Route: [place] 00 IVP, Q5Min, Dosing Weight 90.966, kg, PRN Pain Score 7-10, Priority: Routine, Start date: 12/20/18 9:13:00 CDT, Duration: 2 doses or times, Stop date: Limited # of times Flumazenil 2019-0 No 0.2 mg, Fernie edi 12-20 Route: l 14:13: IVP, PRN, Ganesh 00 Dosing Weight 90.966, kg, PRN Benzodiaze pine Reversal, Initial dose, Start date: 12/20/18 9:13:00 CDT, Duration: 30 day, Stop date: 01/19/19 9:12:00 CDT Hydromorpho No 0.5 mg, Mem oria ne 12-20 Route: l 14:13: IVP, [place] 00 Q5Min, Dosing Weight 90.966, kg, PRN Pain Score 7-10, Start date: 12/20/18 9:13:00 CDT, Duration: 4 doses or times, Stop date: Limited # of times Acetaminoph No Notes: Do M emoria en 325 MG / 12-20 not exceed l Hydrocodone 14:09: 4gm/day of Ganesh Bitartrate 00 acetaminop 10 MG Oral hen. Tablet (Same as: [place] 325/10) Acetaminoph No Notes: Fernie edi en 325 MG / 12-20 (Same as: l Hydrocodone 14:09: [place] Meghna nn Bitartrate 00 325/5) Do 5 [...] moria - Daily, 0 l 12:32: Refill(s) Ganesh 00 tamsulosin Yes 0.4 mg = 1 M emoria 0.4 mg oral 12-20 cap, PO, l capsule 12:31: Daily, # Braulio n 00 30 cap, 0 Refill(s) carvedilol Yes 6.25 mg, Mem oria - PO, BID, 0 l 12:31: Refill(s) [place] Vancomycin No 2001 mg: Me moria 12-11 infuse l 18:00: over 2.5 Ganesh 00 hours For adult patients only: Round to nearest 250 mg per Medical Staff approval MEDICATION WASTE Product Size: 1000 mg Product Wasted: ___ mg Ancef + 2019- No Notes: Memoria sterile 3-19 (Same As: l water 20 mL 18:00: Ancef, Herm helen 00 Kefzol) MEDICATION WASTE Product Size: 1000 mg Product Wasted: ___ mg Vitamin B1 2019-0 Yes Daily, 0 Mem oria 3-19 Refill(s) l 17:51: [place] 00 bumetanide 2018-0 Yes 2 mg = 1 Mem oria 2 mg oral 3-19 tab, PO, l tablet 17:51: BID, 0 Ganesh 00 Refill(s) Acidophilus 2019-0 Yes Daily, 0 Me moria 3-19 Refill(s) l 17:51: Ganesh 00 Aspirin 81 2018-0 Yes 81 mg = 1 Me moria MG Enteric 3-19 tab, PO, l Coated 17:50: Daily, # [place] Tablet 00 90 tab, 3 Refill(s) Nitroglycer Yes 0.4 mg = 1 Memoria in 0.4 MG 3-19 tab, SL, l Sublingual 17:50: Q5Min, 0 Her mcintyre Tablet 00 Refill(s) zolpidem 10 Yes 10 mg = 1 M emoria mg 3-19 tab, SL, l sublingual 17:50: Bedtime, Her mcintyre tablet 00 PRN for sleep, 0 Refill(s) Auryxia 2018-0 Yes 420 mg, Memoria 3-19 PO, 0 l 17:50: Refill(s) [place] 00 NIFEdipine 2018-0 Yes 30 mg = 1 Me moria 30 mg oral 3-19 tab, PO, l tablet, 17:50: Daily, 0 Braulio n extended 00 Refill(s) release sevelamer 2018- Yes 800 mg = 1 Me moria carbonate 3-19 tab, PO, 0 l 800 MG Oral 17:49: Refill(s) H ermann Tablet 00 [Renvela] pregabalin 2018- Yes 50 mg = 1 Me moria 50 MG Oral 3-19 cap, PO, l Capsule 17:49: BID, 0 [place] [Lyrica] 00 Refill(s) Insulin 2018-0 Yes 35 units, Memor ia Glargine 3-19 SUB-Q, l 100 UNT/ML 17:49: Daily, 0 Her mcintyre Injectable 00 Refill(s) Solution [Lantus] prasugrel 2019- No 10mg QD Take 1 [place] (EFFIENT) 11-03 tablet (10 Met hodi 10 mg 00:00: 00:00 mg total) st tablet 00 :00 by mouth daily for 30 days. VIOS Yes See Admin [place] AEROSOL 10-01 Instructio Method i DELIVERY 00:00: ns. st SYSTEM 00 device tamsulosin 2017-09 Yes .4mg QD Take 1 [place] (FLOMAX) 11-20 capsule Methodi 0.4 mg 00:00: (0.[address] capsule 00 total) by mouth daily. L. 2017-09- No 2{capsu QD Take 2 Leija acidophilus 11-20 le} capsules Met lucyi ,casei,rham 00:00: 00:00 by mouth s t nosus (BIO 00 :00 daily. K PLUS) 50 billion cell capsule,del ayed release(DR/ EC) capsule fluticasone 2017-09 Yes 100ug QD 2 sprays [place] (FLONASE) 2-11 (100 mcg Method i 50 00:00: total) by st mcg/actuati 00 Each Nare on nasal route spray daily. lactulose Yes lactulose Sascha rachelln (CHRONULAC) 3-20 10 gram/15 Me thodi 10 gram/15 00:00: mL oral st mL solution 00 solution Immunizations Ordered Immunization Filled Immunization Date Status Commen ts Source Name Name FLUCELVAX QUAD PF 2018-08-09 [facility] 00:00:00 Sabianist Vital Signs Vital Name Observation Time Observation Value Comments Source Systolic blood 2020-08-04 14:39:00 197 mm[Hg] [place] pressure Diastolic blood 2020-08-04 14:39:00 79 mm[Hg] [place] pressure Heart rate 2020-08-04 14:39:00 78 /min Heladio Jung Body height 2020-08-04 14:39:00 175.3 cm [place] [facility] Body weight 2020-08-04 14:39:00 87.544 kg Leija Sabianist BMI 2020-08-04 14:39:00 28.50 kg/m2 Leija Sabianist Oxygen saturation in 2020-08-04 14:39:00 91 /min Leija Sabianist Arterial blood by Pulse oximetry Body temperature 2020-04-23 08:54:00 36.67 Suni [place] Respiratory rate 2020-03-26 07:46:00 17 /min [place] Respitory Rate 2019-03-07 21:13:00 Memori al Ganesh Systolic (mm Hg) 2019-03-07 21:13:00 Fernie rial [place] Diastolic (mm Hg) 2019-03-07 21:13:00 Mem orial Ganesh Temperature Oral (F) 2019-03-07 21:13:00 98.2 F [facility] Heart Rate 2019-03-07 21:13:00 [facility] Respitory Rate 2019-03-07 19:58:00 Memori al [place] Respitory Rate 2019-03-07 17:06:00 Memori al [place] Systolic (mm Hg) 2019-03-07 17:06:00 Fernie rial Ganesh Diastolic (mm Hg) 2019-03-07 17:06:00 Mem orial [place] Heart Rate 2019-03-07 17:06:00 [facility] Temperature Oral (F) 2019-03-07 17:06:00 97.6 F [facility] Systolic (mm Hg) 2019-03-07 12:10:00 Fernie rial [place] Diastolic (mm Hg) 2019-03-07 12:10:00 [facility] [place] Heart Rate 2019-03-07 12:10:00 [facility] Temperature Oral (F) 2019-03-07 12:10:00 98.3 F [facility] Height 2019-03-04 22:27:00 172.72 cm [facility] Weight 2019-03-04 22:27:00 [facility] BMI Calculated 2019-03-04 22:27:00 [facility] [place] Respitory Rate 2019-02-21 20:30:00 [facility] Systolic (mm Hg) 2019-02-21 20:30:00 Fernie [facility] Diastolic (mm Hg) 2019-02-21 20:30:00 [facility] Systolic (mm Hg) 2019-02-21 19:45:00 Fernie rial [place] Diastolic (mm Hg) 2019-02-21 19:45:00 [facility] Respitory Rate 2019-02-21 19:45:00 [facility] Systolic (mm Hg) 2019-02-21 19:40:00 [facility]ie [facility] Diastolic (mm Hg) 2019-02-21 19:40:00 [facility] [place] Respitory Rate 2019-02-21 19:40:00 [facility] Heart Rate 2019-01-29 15:39:00 [facility] Temperature Oral (F) 2019-01-29 15:39:00 97.5 F [facility] BMI Calculated 2019-01-29 15:09:00 [facility] Weight 2019-01-29 15:09:00 [facility] Height 2019-01-29 15:09:00 172.72 cm [facility] Systolic (mm Hg) 2018-12-20 15:00:00 Fernie [facility] Diastolic (mm Hg) 2018-12-20 15:00:00 [facility] [place] Respitory Rate 2018-12-20 15:00:00 [facility] Respitory Rate 2018-12-20 14:45:00 [facility] Systolic (mm Hg) 2018-12-20 14:45:00 Fernie rial [place] Diastolic (mm Hg) 2018-12-20 14:45:00 [facility] [place] Respitory Rate 2018-12-20 14:30:00 [facility] [place] Systolic (mm Hg) 2018-12-20 14:30:00 Fernie rial [place] Diastolic (mm Hg) 2018-12-20 14:30:00 [facility] [place] Temperature Oral (F) 2018-12-20 12:30:00 97.3 F [facility] Height 2018-12-11 17:09:00 172.72 cm [facility] BMI Calculated 2018-12-11 17:09:00 [facility] [place] Weight 2018-12-11 17:09:00 [facility] Temperature Oral (F) 2018-12-11 17:09:00 97.8 F [facility] Heart Rate 2018-12-11 17:09:00 [facility] Procedures Procedure Date / Time Performing Clinician Source Performed SINGLE ANTIGEN BEADS 2020-08-26 12:48:00 Beatriz Xie [facility] LUPUS ANTICOAGULANT PANEL 2020-07-08 14:11:00 Marielos Childress CARDIOLIPIN ANTIBODIES 2020-07-08 14:11:00 Marielos Childress on [facility] BETA-2 GLYCOPROTEIN 1 2020-07-08 14:11:00 Marielos Childress [facility] ANTIBODY, IGG AND IGM HEXAGONAL PHOSPHOLIPID 2020-07-08 14:11:00 PetMarielos marshall on [facility] DRVVC, DRVVT/DRVVC 2020-07-08 14:11:00 Marielos Childress [facility] LUPUS ANTICOAGULANT PANEL 2020-05-27 13:13:00 Zoe, Beatriz Jung HEXAGONAL PHOSPHOLIPID 2020-05-27 13:13:00 Zoe, Beatriz kemp [facility] DRVVC, DRVVT/DRVVC 2020-05-27 13:13:00 Zoe, Beatriz wagner [facility] SINGLE ANTIGEN BEADS 2020-05-27 08:19:00 Zoe, Beatriz anderson [facility] PROTHROMBIN TIME WITH INR 2020-05-14 13:20:00 Zoe, Beatriz Jung PARTIAL THROMBOPLASTIN 2020-05-14 13:20:00 Zoe, Beatriz kemp [facility] TIME (PTT) THYROID STIMULATING 2020-05-14 13:20:00 Zoe, Beatriz richardson [facility] HORMONE SIX MINUTE WALK W/ PULSE 2020-04-23 [...] HEPATITIS B SURFACE 2020-03-26 07:36:00 Hawk Lackey ston [facility] ANTIGEN HEPATITIS B SURFACE AB, 2020-03-26 07:36:00 Hawk Lackey QUANTITATIVE HEPATITIS C ANTIBODY 2020-03-26 07:36:00 Hawk Lackey SYPHILIS TOTAL ANTIBODY 2020-03-26 07:36:00 Hawk Lackey HC COMPLETE BLD COUNT 2020-03-26 07:36:00 Hawk Lackey W/AUTO DIFF PROTHROMBIN TIME WITH INR 2020-03-26 07:36:00 Hawk Lackey ph PARTIAL THROMBOPLASTIN 2020-03-26 07:36:00 Hawk Lackey TIME (PTT) DRUG ALVAREZ 9, SER/MOOKIE, SCRN 2020-03-26 07:36:00 Hawk Lackey [...] IGM PARATHYROID HORMONE 2020-03-26 07:36:00 Hawk Lackey [facility] SERUM ELECTROPHORESIS 2020-03-26 07:36:00 Hawk Lackey [facility] PROSTATE SPECIFIC ANTIGEN 2020-03-26 07:36:00 Hawk Lackey ph C-PEPTIDE 2020-03-26 07:36:00 Hawk Lackey ESTIMATED GFR 2020-03-26 07:36:00 Hawk Lackey MISCELLANEOUS REFERRAL 2020-03-26 07:36:00 Hawk Lackey TEST SAB CLASS 1 & 2 WITH 2020-03-26 07:36:00 Hawk Lackey [place] [facility] DILUTIONS TTE COMPLETE, WO CONTRAST, 2019-11-05 11:36:53 Beatriz Xie W REMIGIO ([id number]) 8O4F90U 2019-07-31 00:00:00 ENCPL 0J1A54F 2019-07-31 00:00:00 ENCPL 0G2F51X 2019-07-31 00:00:00 ENCPL 0S4D70E 2019-07-31 00:00:00 ENCPL 1R5Z38R 2019-07-31 00:00:00 ENCPL 3R2A52U 2019-07-31 00:00:00 ENCPL 0M6L67G 2019-07-31 00:00:00 ENCPL 5D4W95B 2019-07-31 00:00:00 ENCPL 4Z7P00Y 2019-07-31 00:00:00 ENCPL 2H1S37O 2019-07-31 00:00:00 ENCPL 3X4H00L 2019-07-31 00:00:00 ENCPL 1S9O69H 2019-07-31 00:00:00 ENCPL 1S0H50Y 2019-07-31 00:00:00 ENCPL 2R5L05L 2019-07-31 00:00:00 ENCPL 0K3U50N 2019-07-31 00:00:00 ENCPL 4Y1O96E 2019-07-31 00:00:00 ENCPL 4N9P93I 2019-07-31 00:00:00 ENCPL 5Z8A07K 2019-07-31 00:00:00 ENCPL 8K8X42N 2019-07-31 00:00:00 ENCPL 2I0R71K 2019-07-31 00:00:00 ENCPL 2W7N38T 2019-07-31 00:00:00 ENCPL 5W1M81J 2019-07-31 00:00:00 ENCPL 0G7F91N 2019-07-31 00:00:00 ENCPL Stent placement 2018-07-26 05:00:00 [facility] mcintyre Amputation of toe 2005-11-23 06:00:00 [facility] AVF - Pulmonary [facility] arteriovenous fistula operation Plan of Care Planned Activity Planned Date Details Comments Source Future Scheduled 2020-06-06 DIABETIC FOOT EXAM [place] [facility] 00:00:00 [code = DIABETIC FOOT EXAM] Future Scheduled 2020-04-25 INFL[place]ENZA VACCINE [place] [facility] 00:00:00 [code = INFLUENZA VACCINE] Future Scheduled 2009 COLONOSCOPY SCREENING [place] [facility] 00:00:00 [code = COLONOSCOPY SCREENING] Future Scheduled 2009 SHINGLES VACCINES [place] [facility] 00:00:00 (#1) [code = SHINGLES VACCINES (#1)] Future Scheduled 1975 COVID-19 VACCINE (#1) [place] [facility] 00:00:00 [code = COVID-19 VACCINE (#1)] Future Scheduled 1969 DIABETES: RETINAL EYE [place] [facility] 00:00:00 EXAM [code = DIABETES: RETINAL EYE EXAM] Encounters Start End Encounter Admission Attending Care Care Encounter Source Date/Time Date/Time Type Type Clinicians Facility Department ID 2019-04-30 Outpatient MHSE MHSE [id number] MH 14:00:27 [facility] 2019-03-04 Inpatient U MHSE MED [id number] MH 17:21:00 [facility] 2020-09-28 2020-09-28 Outpatient [facility] [id number] 00:00:00 00:00:00 AHMED [address] 2020-08-26 2020-08-26 Outpatient [facility] [id number] [place] 00:00:00 00:00:00 AHMED [address] 2020-08-12 2020-08-12 Outpatient [facility] [id number] [place] 00:00:00 00:00:00 AHMED [address] 2020-08-04 2020-08-04 Outpatient PETKOVA, [facility] [id number] [place] 00:00:00 00:00:00 MARIELOS [address] 2020-08-04 2020-08-04 Outpatient PETKOVA, [facility] [id number] [place] 00:00:00 00:00:00 MARIELOS [address] 2020-07-08 2020-07-08 Outpatient PETKOVA, [facility] [id number] [place] 00:00:00 00:00:00 MARIELOS [address] 2020-07-08 2020-07-08 Outpatient ZOE, [facility] [id number] [place] 00:00:00 00:00:00 AHMED [address] 2020-07-08 2020-07-08 Outpatient PETKOVA, [facility] [id number] [place] 00:00:00 00:00:00 MARIELOS [address] 2020-07-08 2020-07-08 Outpatient PETKOVA, [facility] [id number] [place] 00:00:00 00:00:00 MARIELOS [address] 2020-05-27 2020-05-27 Outpatient ZOE, [facility] [id number] [place] 00:00:00 00:00:00 AHMED [address] 2020-05-27 2020-05-27 Outpatient ZOE, [facility] [id number] [place] 00:00:00 00:00:00 AHMED [address] 2020-05-14 2020-05-14 Outpatient ZOE, [facility] [id number] [place] 00:00:00 00:00:00 AHMED [address] 2020-04-23 2020-04-23 Outpatient ZOE, [facility] [id number] [place] 00:00:00 00:00:00 AHMED [address] 2020-04-23 2020-04-23 Outpatient ZOE, [facility] [id number] [place] 00:00:00 00:00:00 AHMED [address] 2020-03-26 2020-03-26 Outpatient HOBEIKA, [facility] [id number] [place] 00:00:00 00:00:00 HAWK [address] 2020-03-26 2020-03-26 Outpatient ZOE, [facility] [id number] [place] 00:00:00 00:00:00 AHMED [address] 2020-03-26 2020-03-26 Outpatient CHIP, [facility] [id number] [place] 00:00:00 00:00:00 TC [address] 2020-03-26 2020-03-26 Outpatient ELIN, [facility] [id number] [place] 00:00:00 00:00:00 HAWK [address] 2020-03-26 2020-03-26 Outpatient ELIN, [facility] [id number] [place] 00:00:00 00:00:00 HAWK [address] 2019-11-05 2019-11-05 Outpatient ZOE, [facility] [id number] [place] 00:00:00 00:00:00 AHMED [address] 2019 2019-06-14 Inpatient LEVAR, [facility] [id number] [place] 00:00:00 00:00:00 SHIVA [address] 2019-03-04 2019-03-07 Outpatient Rolan Rice MHSE MHSE [id number] 17:21:00 18:43:00 Robert Loera 2019-02-21 2019-02-21 Outpatient Joseph MHSE MHSE [id number] 11:31:00 15:41:00 Stephan Brown 2019-02-21 2019-02-21 Outpatient MHSE MHSE [id number] MH 11:31:00 11:31:00 [facility] kd [facility] 2019-01-31 2019-01-31 Outpatient Camille MHMISCHER MHMISCHER [id number] 10:15:00 10:15:00 Juventino Leon 2019-01-15 2019-01-16 Outpatient MHMISCHER MHMISCHER [id number] 14:19:00 23:59:59 01 2018-12-20 2018-12-20 Outpatient Joseph MHSE MHSE [id number] 07:30:00 10:08:00 Stephan Brown Results Test Description Test Time Test Comments Results Result Comments Source Single antigen beads 2020-09-02 11:04:23 Test Item Value Reference Range Interpretation Comme nts SAB serum ID (test code = 5866) [id number] SAB serum collection D&T (test code = 5867) 08/26/2020 12:48 PM SAB class I antibody assignment (test code = Negative 5870) SAB cPRA class I (test code = 5868) 0 SAB class II antibody assignment (test code = Negative 5871) SAB cPRA class II (test code = 5869) 0 Case number (test code = 9045286) [id number] Single antigen beads (test code = 4604) See link below for PDF Lab Report Heladio JungHexagonal comgtmcurnqo7308-39-34 18:10:40 Test Item Value Reference Range Interpretation Comments Tube 1 - 2 (test code = 77861-5) 16.7 0.0- 11.0 sec H LA interpretation (test code = Positive 60124-8) Lab Interpretation (test code = Abnormal 42594-8) Heladio JungDRVVC, DRVVT/VCROJ1343-46-45 12:37:59 Test Item Value Reference Range Interpretation Comments DRVVT (test code = 48.8 29.0- 46.[address] has been 6303-2) modified from Lateral SV manufacturers instructions. The performance characteristics were determined by macy denton in a manner consiste nt with CLIA requiremen ts. This test has n ot been cleared or appr brennan by the U.S. Food a nd Drug Administration. DRVVC (test code = 33.0 [place] [address]-6) modified from [employer] manufacturers instructions. The performance characteristics were determined by macy denton in a manner consiste nt with CLIA requiremen ts. This test has n ot been cleared or appr brennan by the U.S. Food a nd Drug Administration. DRVVT/DRVVC ratio 1.48 0.00- 1.22 sec H (test code = 59091-2) Lab Interpretation Abnormal (test code = 09753-4) Heladio JungLupus anticoagulant nkruk1222-74-43 12:37:35 Test Item Value Reference Range Interpretation Comments Prothrombin time (test 13.2 11.5- 14.5 sec code = 5902-2) INR (test code = 1.0 The Interna tional 31869-0) Normalized Rati o (INR) is a therapeuti c monitoring tool for patients who ar e stable on oral anticoa gulant therapy. An INR of 2.0-3.0 is sugg ested for deep vein thrombosis/pulm onary embolism. PTT (test code = 35.0 23.0- 36.0 sec PTT thera peutic range 92972-2) for unfractiona parveen heparin is61.0- 112.0 seconds which corresponds to Anti-Xa0.3-0.7 U/ml. PTT lupus 40.5 27.0- 38.0 sec H Lupus anticoa gulant anticoagulant (test (LA) alvarez el consists of code = 23968-6) PT, PTT, PTT -LA, and DRVVT. If [...] high (positive) on t wo occassions at [facility] six weeks apart. Cl inical confirmation is [...] Administration. Lab Interpretation Abnormal (test code = 84022-8) Heladio JungCardiolipin dblcmgkpyw5999-29-48 20:19:19 Test Item Value Reference Range Interpretation Comments Cardiolipin IgG (test 7 0- 14 GPL Negati ve <15 GPL code = 3181-5) Indeterminat e 15-20 GPL Positive >2 0 GPL Cardiolipin IgM (test 16 0- 12 MPL H Negati ve <13 MPL code = 3182-3) Indetermina te 13-20 MPL Positive > 20 MPL Lab Interpretation Abnormal (test code = 40891-7) Heladio JungBeta-2 glycoprotein 1 antibody, IgG and KmJ4019-31-72 20:19:19 Test Item Value Reference Range Interpretation Comments Beta-2 glycoprotein 1 <9.4 0.0-20.0 Negati ve =<20.0 antibody, IgG (test code SGU Positive >20.0 SGU = 56095-8) Beta-2 glycoprotein 1 <9.4 0.0-20.0 Negati ve =<20.0 antibody, IgM (test code SMU Positive >20.0 SMU = 57447-6) Leija MethodistSix minute walk w/ pulse dmyvdjnh4031-68-65 12:51:44 Test Item Value Reference Range Interpretation [...] Distance Predicted 558 (test code = 5645) [place] SabianistCTA Abdomen Pelvis W And Or Wo Hogdyjcw3516-64-02 14:05:12Hm Interface, Radiology Results 03/26/2020 2:08 PM CDTEXAMINATION: CT ANGIOGRAM ABDOMENPELVIS [...] only trace infrarenal aortic nonflow limi ting atherosclerosis/arteriosclerosis.Sign Maintenance aortic diameters:Diaphragmatic hiatus: 2.3 cmLevel of renal arteries: 1.9 cmDistal infrarenal segment: 1.6 cmCeliac, SMA and LULY are patent without stenosis. [place] renal arteries are unremarkable.Iliac arteries:Right common iliac: [...] of indeterminate clinical significance. Otherwise, normal. IMPRESSION:Mild aoq-nfyq-kucskipr atherosclerosis and arteriosclerosis of the aorta and iliac arteries as described.[facility]-[id number] MethodistEchocardiogram complete w contrast and 3D if mooibq8590-29-49 17:34:00Interface, Radiology Results In - 11/06/2019 5:35 PM [facility] Echocardiography Report [address]Name: MARNIE LYLES.ID: [id number].Date: 11/05/2019 Refer.MD: BEATRIZ XIE Exam Time: 10:23:00 AM Study Type:Routine Echo Height: 69in Weight: 202lb BSA: 2.08 m2 Age: 9 1960,59Y Sex: MALE BP: 178/77 HR: 65 bpm Sonogrphr: Marielos Middleton [facility], Kelley Franco, StudentPat. Stat.:Outpatient Study Status:Final Echo Event ID:[id number] Order ID: [id number] Reason for Study:Renal Transplant EvaluationHistory / Clinical:Diabetes, HypertensionProcedures: 2D Echo, Colorflow Doppler, [facility]: C SUMMARY: LV EF is normal. Estimated [...] estimate PA systolic pressure. -MEASUREMENTS: 2DParasternal Long [place] Ao An 1.8 cm LVPWd 1.1 cm [...] 2.7 l/m/m2 Signed 11/06/2019 05:34 Gloria Steinberg M.D.[place] MethodistCHEM ROLLW1654-22-47 20:06:002.1 [facility]ZvblangVFOYIMTASJ0597-28-54 20:06:00 Test Item Value Reference Range Interpretation Comments INR (test code = INR) 0.99 1 0.85-1.17 [facility] PunmdanKWKWOYFQFC6261-24-88 20:06:00 Test Item Value Reference Range Interpretation Comments PT (test code = PT) 12.9 s 12.0-14.7 [facility] UqspmgmSOHPFSPSTE7374-18-86 20:06:00 Test Item Value Reference Range Interpretation Comments PTT (test code = PTT) 43.3 s 22.9-35.8 [facility] RhfmvoyIYXYGQHDQD0978-91-60 20:06:00>100[facility] HermannIMMUNOLOGY 2019-03-06 20:06:00<0.5[facility] RauuuevRXDPRGPFMS2640-89-49 20:06:00<10 Memorial RprryuiMGBYOOTFDL2186-55-69 20:06:96875.0[facility] HermannCHEM PANEL 2019-03-06 18:38:0013[facility] HermannCHEM RKJTG6422-09-29 18:38:004.7[facility] HermannCHEM WKEFG5596-11-96 18:38:72490Vcpityuq HermannCHEM CMLOT4209-97-71 18:38:004.69[facility] HermannCHEM OGPEC4808-58-75 18:38:87485Vzjpfiqh HermannCHEM MNRJB0399-60-74 18:38:90522Fntmldhw HermannCHEM ZSAIF0110-67-36 18:38:0015 [facility] HermannCHEM DGGRG4304-24-72 18:38:0024[facility] HermannCHEM PANEL 2019-03-06 18:38:008.5[facility] HermannCHEM XFZZY5393-75-93 18:38:0015.7[facility] OoreucoCCKAYAUDOZ4238-15-52 18:38:000.3[facility] KuypbewKLPGFFDGZF1991-33-67 18:38:000.1[facility] XaicyoxHLVUKBMBAW7432-76-66 18:38:003.7[facility] CBGMEKNGPS7402-26-47 18:38:000.8[facility] UbjvhvtUVNAYEJULX6167-91-39 18:38:000.5 [facility] XkkppedAXIUUMNCYV5163-50-43 18:38:0015.8[facility] HermannHEMATOLOGY 2019-03-06 18:38:0068.7[facility] CgezpajEDZEHEXMYY1703-49-25 18:38:001.9[facility] IinfnhzWAGVJREAJJ4581-83-97 18:38:004.9[facility] LotxftcXTKPUQFVDP1616-81-85 18:38:008.7[facility] UxvpouzWSPPMWTFGB2502-93-62 18:38:0015.4[facility] SLSGUPCYNS7600-35-45 18:38:00 Test Item Value Reference Range Interpretation Comments MCH (test code = MCH) 30.1 pg 27.0-31.0 [facility] YptiontKIBOORFGRA2601-78-94 18:38:29180Hrwqmynq HermannHEMATOLOGY 2019-03-06 18:38:009.6[facility] SckyhgnYFYXEUUUAA1542-24-52 18:38:0032.6[facility] JdnqpwhYEYSEPVZEC5432-00-77 18:38:0029.4[facility] GeiqrkyBHPWYQWLAJ5631-48-72 18:38:0092.2[facility] YqodpryMXQTSIUIOC7301-68-54 18:38:007.2[facility] JZXVWVKRTG1144-72-07 18:38:003.19[facility] IrtccohDODOCELBUO9302-24-10 18:38:00 5.4[facility] CiifuruPYIOYHBNSY5143-79-35 13:30:00Negative *NA*(03/05/19 8:30 AM) [facility] HermannGENTAMICIN:SUSC:PT:ISOLATE:ORDQN:CCF3855-48-71 06:40:00 Citrobacter koseriMemorial HermannGENTAMICIN:SUSC:PT:ISOLATE:ORDQN:RFJ4679-28-08 06:40:00Pseudomonas aeruginosaMemorial [facility] GENTAMICIN:SUSC:PT:ISOLATE:ORDQN:[id number] 06:40:00Klebsiella pneumoniae ssp pneumoniaeMemorial HermannGENTAMICIN:SUSC:PT:ISOLATE:ORDQN:QQV3431-54-53 06:40:00Enterobacter cloacaeMemorial HermannCHEM SANPP0083-86-62 03:51:008.1 [facility] HermannCHEM WHYJX8358-03-49 03:51:000.8[facility] HermannCHEM PANEL 2019-03-05 03:51:0019Mem[facility] HermannCHEM FOVEW0041-32-29 03:51:000.4[facility] HermannCHEM ZAPDZ3197-95-56 03:51:004[facility] HermannCHEM JGLMV3808-30-24 03:51:0015Memorial HermannCHEM KQGSE1973-62-65 03:51:002.5[facility] HermannCHEM DXJKZ1234-08-94 03:51:006.0[facility] HermannCHEM NROJL3484-79-48 03:51:32783 [facility] HermannCHEM GUVMK4283-06-53 03:51:0012.60[facility] HermannCHEM PANEL 2019-03-05 03:51:0055Memorial HermannCHEM LAQRM3753-44-94 03:51:06333Pinfnuiy HermannCHEM HPMGX0353-11-88 03:51:81996Zkmwtcsq HermannCHEM SXEYD2757-30-64 03:51:004.3[facility] HermannCHEM TGEDS7147-84-83 03:51:19981Yhvevoea HermannCHEM PIAMN1747-57-55 03:51:007.6[facility] HermannCHEM BNJUC4272-22-63 03:51:0025 [facility] HermannCHEM PWFGO0667-63-72 03:51:0014.3[facility] HermannCHEM PANEL 2019-03-05 03:51:00 Test Item Value Reference Range Interpretation Comments B/C Ratio (test code = B/C Ratio) 4 1 6-25 [facility] HermannCHEM XLUXT4226-57-26 03:51:003.5[facility] HermannCHEM PANEL 2019-03-05 03:51:00 Test Item Value Reference Range Interpretation Comments A/G Ratio (test code = A/G Ratio) 0.7 1 0.7-1.6 [facility] PaeyzsoFBDLHWSQHI2835-73-23 03:51:002.3[facility] HermannHEMATOLOGY 2019-03-05 03:51:003.3[facility] XnvajyoVOIIGRWLRN8176-15-59 03:51:001.0[facility] PwriykcQJHSBOWHDT7234-50-11 03:51:000.6[facility] ImmnkvfLLULHEOPWK1495-22-92 03:51:000.3[facility] AfmabsrEQZVTUSBMD9344-03-95 03:51:0063.2[facility] FEBHJBQDTL2559-11-93 03:51:0018.1[facility] KcnszwiYWWYNJKJXO7132-84-87 03:51:00 0.1[facility] GikjfiwLYJMQNYFAN7549-81-76 03:51:0011.0[facility] HermannHEMATOLOGY 2019-03-05 03:51:005.4[facility] AehnahbZYNBBRDOLJ9408-74-62 03:51:00 Test Item Value Reference Range Interpretation Comments MCH (test code = MCH) 29.8 pg 27.0-31.0 [facility] UinkizlBRMOQVCLHN8945-76-82 03:51:0033.1[facility] HermannHEMATOLOGY 2019-03-05 03:51:005.3[facility] FozmyvgQRWUTVFUXQ5847-09-48 03:51:002.61[facility] BtjxzsiRZCHDGIDAO0318-05-94 03:51:007.8[facility] HstogjqKDTZSNLIML7246-82-25 03:51:0023.5[facility] MsmlbmkGOVTBGMQOR1058-31-12 03:51:0090.1[facility] XMZVBLSCGG1029-76-95 03:51:007.6[facility] KvirxgaHFSZUDOQEY2493-32-12 03:51:92278 Memorial AoxaardSQJXTVTIYS3037-89-18 03:51:0015.6[facility] HermannIMMUNOLOGY 2019-03-05 03:51:51320.0[facility]orial LkjotyjSVTJKIZPCT1151-63-64 18:20:006.0[facility] ZrlokndUUFSPUBPMC5888-73-15 18:20:0033.0[facility] TlfzigvHVVZHEVKDF2790-62-85 18:20:003.64Mem[facility] IflmciwJVYRKYEYIV4189-00-53 18:20:0090.5[facility] GNXVCSEKNH1442-13-63 18:20:0010.8[facility] HimzerfKPXMZLFGEE2774-79-03 18:20:00 14.6[facility] VupqmycOUOBWMFDSL0747-42-11 18:20:14473Qupufbmd HermannHEMATOLOGY 2019-02-21 18:20:0032.9[facility] IgepgkuZRHXKIAKYJ0337-10-49 18:20:00 Test Item Value Reference Range Interpretation Comments MCH (test code = MCH) 29.8 pg 27.0-31.0 Memorial WtrbuosKNRRGLWDPV7741-29-15 18:20:007.8[facility] HermannBLOOD BANK DAGAENU5684-51-77 15:03:00Negative (02/21/19 10:03 AM)[facility] BKHQIAELHONJ5103-91-20 15:03:004.3[facility] HermannCHEM OQOPM6672-00-63 14:18:007 [facility] HermannCHEM QHPPY2016-12-90 14:18:0014.2[facility] HermannCHEM PANEL 2019-02-21 14:18:0035Mem[facility] HermannCHEM QHTCK9205-99-04 14:18:78876Qftphztf HermannCHEM OTUWA2962-06-21 14:18:008.4[facility]annCHE[facility] ZMHGY8524-63-71 14:18:0026[facility]annCHE[facility] OJJXP6418-02-66 14:18:007.88[facility]annCHE[facility] WUFXD5016-19-88 14:18:0075[facility]annCHE[facility] NQDNG2978-42-88 14:18:004.2 [facility]annCHE[facility] GTXUG3927-04-05 14:18:53471Peycrohr HermannBLOOD BANK ZVZETHP7156-34-23 15:27:00Negative (01/29/19 10:27 AM)[facility]ann[facility] PANEL 2019-01-29 15:27:006[facility]annCHE[facility] NMPGL1737-20-13 15:27:98231Uexvnite HermannCHEM ZNKNC6672-86-72 15:27:004.3[facility]annCHE[facility] FUCXP5289-17-71 15:27:0027[facility]annCHE[facility] NUSIX0876-87-64 15:27:008.2[facility]annCHE[facility] DYLOC7118-14-67 15:27:32441Okkcmpfr HermannCHEM VXEMS5771-68-45 15:27:19183 [facility]annCHE[facility] RCEIE7624-66-37 15:27:008.24[facility]annCHEM PANEL 2019-01-29 15:27:0045[facility]annCHEM LIBKY4010-95-76 15:27:0013.3[facility] MeucmzjYDTKKFGGDZ5414-42-53 15:27:000.6[facility] CvozwhaGPWVIAEGPC0125-09-47 15:27:000.3[facility] FfisorkVDIJTRCOEB7201-80-41 15:27:000.1[facility] GGPOSPNSDY7613-70-74 15:27:0011.3[facility] VrsyiwpOOISPQAJWC1790-89-00 15:27:00 1.5[facility] EnzogtzTMDWLNJXFV6193-80-55 15:27:005.5[facility]annHEMATOLOGY 2019-01-29 15:27:0015.4[facility] BvnygooSUHEQCDXOI3917-25-39 15:27:0066.3[facility] TapxhybKLJKYMYMOL2685-74-45 15:27:003.6[facility] DbjxzkuZTZHTRBDWR6019-60-53 15:27:000.8[facility] YilskquCHNQGFGWZO8740-96-59 15:27:00 Test Item Value Reference Range Interpretation Comments PTT (test code = PTT) 43.7 s 22.9-35.8 [facility] NxocvdwNNEADQQWUB2576-82-23 15:27:00 Test Item Value Reference Range Interpretation Comments INR (test code = INR) 1.00 1 0.85-1.17 [facility] PslgvzbYVIXYCGURQ1871-24-49 15:27:00 Test Item Value Reference Range Interpretation Comments PT (test code = PT) 13.0 s 12.0-14.7 [facility] AquouviUHLMBUYSEK7046-89-59 15:27:84950Jljgrqhz HermannHEMATOLOGY 2019-01-29 15:27:007.5[facility] ZwtyntzAGTRBDRIIR2256-22-22 15:27:005.4[facility] EsjdbenYNMENHFTWA1251-55-87 15:27:003.90[facility] BpusovuUQDCQKVOIP0545-92-12 15:27:00 Test Item Value Reference Range Interpretation Comments MCH (test code = MCH) 30.3 pg 27.0-31.0 [facility] RfywqtbIPMKEMMWJW7847-01-44 15:27:0033.6[facility]annHEMATOLOGY 2019-01-29 15:27:0011.8[facility] RffeqixNCTVNCDJFZ3791-00-94 15:27:0090.1[facility] JeudjhqTVGQIVXGLR9385-21-59 15:27:0035.1[facility] XyszqtcJDMPITKDYR3297-60-08 15:27:0014.6[facility]annBLOOD BANK JJDJAIW4607-12-21 17:35:00Negative (12/11/18 12:35 PM)[facility]annCHE[facility] XMPFS7569-51-37 17:35:006[facility] CHEM LNNIK3185-34-37 17:35:0062[facility]annCHEM OXPRW0836-54-71 17:35:0062 [facility]annCHE[facility] CPUTG8795-95-91 17:35:008.1[facility]annCHEM PANEL 2018-12-11 17:35:0027[facility]annCHEM YTWVH9109-42-93 17:35:62654Vvwmbtpx HermannCHEM JYANA3900-40-30 17:35:006.0[facility]annCHEM QSTAK4105-33-39 17:35:46482Xsdcibkd HermannCHEM UCUGE0508-10-55 17:35:008.46[facility]annCHEM MBTWS3069-19-04 17:35:0014.0[facility] CbvpipdJLYREQEZBX1919-32-81 17:35:001.9 [facility] SfcqayxWFLPKNSHCV6385-34-34 17:35:002.7[facility] HermannHEMATOLOGY 2018-12-11 17:35:004.4[facility] ZunktfiEZMYURIANQ8905-75-08 17:35:0011.6[facility] UriexljIOMNEDHSWD9076-21-80 17:35:000.1[facility] [id number] 17:35:001.1[facility] LyoonwbHBOBPCIKCB2505-13-02 17:35:000.2[facility] [id number] 17:35:000.5[facility] WijnihcUJQJUELPOW4367-71-02 17:35:00 23.7[facility] NbriiblPXRQXMKOEI3518-75-54 17:35:0058.4[facility]ann[facility]MATOLOGY 2018-12-11 17:35:00 Test Item Value Reference Range Interpretation Comments PTT (test code = PTT) 42.9 s 22.9-35.8 [facility] [id number] 17:35:00 Test Item Value Reference Range Interpretation Comments INR (test code = INR) 1.04 1 0.85-1.17 [facility] [id number] 17:35:00 Test Item Value Reference Range Interpretation Comments PT (test code = PT) 13.4 s 12.0-14.7 [facility] [id number] 17:35:0032.3[facility] 2018-12-11 17:35:0016.9[facility] [id number] 17:35:00 Test Item Value Reference Range Interpretation Comments MCH (test code = MCH) 30.1 pg 27.0-31.0 [facility] [id number] 17:35:27794Pwqmhrdc HermannHEMATOLOGY 2018-12-11 17:35:008.1[facility] SorcotwMSHYDHONBI0711-07-24 17:35:0093.1[facility] NuwvgkqOWPRNJHGTK3736-21-27 17:35:0011.0[facility] [id number] 17:35:0034.1[facility] [id number] 17:35:004.6[facility] [id number] 17:35:003.66[facility] HermannSPECIAL [id number] 17:35:005.0[facility]
[2020-10-02 10:38] LABS: Absolute Lymphocytes (CBC) 1.2 K/uL (0.7-4.9); Basophils % 0.9 % (0-1.3); Hematocrit 30.7 % (39.6-49.0); Lymphocytes % 12.6 % (15.3-44.8); MPV 7.5 fL (7.6-11.3); RBC Red Blood Cell Count 3.27 M/uL (4.33-5.43)
--- NOTE | 2020-10-02 11:01 | RAD REPORT ---
EXAM DESCRIPTION: RAD - Chest Single View - 10/02/2020 10:46 am CLINICAL HISTORY: CHEST PAIN Chest pain. COMPARISON: Chest Pa And Lat (2 Views) dated 09/20/2020; Chest Pa And Lat (2 Views) dated 09/14/2020 ; Chest Pa And Lat (2 Views) dated 03/03/2020; Chest Pa And Lat (2 Views) dated 07/22/2019 FINDINGS: Portable technique limits examination quality. The lungs are grossly clear. Trace pleural effusions. The heart is normal in size. No displaced fract ures.Stent is noted in the expected location of the SVC. IMPRESSION: No acute intrathoracic process suspected.
[2020-10-02 11:14] LABS: Potassium 3.3 mmol/L (3.5-5.1); Troponin (Emerg Dept Use Only) 0.15 ng/mL (0.0-0.045)
--- NOTE | 2020-10-02 12:34 | ER ---
Nurse's Notes [facility] Name: Wade Koehler Age: 60 yrs Sex: Male : 1960 Arrival Date: 10/02/2020 Time: 10:06 Bed 4 Private MD: Diagnosis: Chest pain, unspecified;End stage renal disease Presentation: 10/02 10:06 Chief complaint: EMS states: Pt was on dialysis at 1.5 hrs in, started complaining of ca1 chest pain at 0900 described as pressure with 4/10 on the painscale. Reports lasted about 30 minutes and resolved on its own. Dialysis staff reported BP drop in the 80s systolic, NS 500ML bolus given. BP now at 132/70. Pt just recently recovered from Pneumonia. Coronavirus screen: Client denies travel out of the [place] in the last 14 days. cough unrelated to allergies, Client presents with at least one sign or symptom that may indicate coronavirus-19. Standard/surgical mask placed on the client. Provider contacted for isolation considerations. Ebola Screen: Patient negative for fever greater than or equal to 101.5 degrees Fahrenheit, and additional compatible Ebola Virus Disease symptoms Patient denies exposure to infectious person. Patient denies travel to an Ebola-affected area in the 21 days before illness onset. No symptoms or risks identified at this time. Initial Sepsis Screen: Does the patient meet any 2 criteria? No. Patient's initial sepsis screen is negative. Does the patient have a suspected source of infection? No. Patient's initial sepsis screen is negative. Risk Assessment: Do you want to hurt yourself or someone else? Patient reports no desire to harm self or others. Onset of symptoms was October 02, 2020 at 09:00. 10:06 Method Of Arrival: EMS: [facility] ca1 10:06 Acuity: WILFREDO 2 ca1 Historical: - Allergies: 10:12 NKA; ca1 - PMHx: 10:12 Diabetes - IDDM; Dialysis; at home seven days a week'; ESRD; Hypertension; PERIPHERAL ca1 NEUROPATHY; - PSHx: 10:12 Cholecystectomy; Heart stents; ca1 - Immunization history:: Adult Immunizations up to date, Pneumococcal vaccine is up to date, Flu vaccine is up to date. - Social history:: Smoking status: Patient reports the use of cigarette tobacco products, denies chronic smoking, but will smoke occasionally. - Family history:: not pertinent. - Hospitalizations: : No recent hospitalization is reported. Screenin:12 Abuse screen: Denies threats or abuse. Denies injuries from another. Nutritional ca1 screening: No deficits noted. Tuberculosis screening: No symptoms or risk factors identified. Fall Risk IV access (20 points). Ambulatory Aid- Crutches/Cane/Walker (15 pts). Gait- Impaired (20 pts.). Total Burkett Fall Scale indicates High Risk Score (45 or more points). Fall prevention measures have been instituted. Side Rails Up X 2 As available patient and family educated on Fall Prevention Program and Strategies. Assessment: 10:12 General: Appears in no apparent distress. comfortable, Behavior is calm, cooperative, ca1 appropriate for age. Pain: Complains of pain in mid-sternal area Pain does not radiate. Pain currently is 0 out of 10 on a pain scale. at worst was 4 out of 10 on a pain scale. Quality of pain is described as pressure, Pain began 1 hour ago. Is intermittent. Neuro: Level of Consciousness is awake, alert, obeys commands, Oriented to person, place, time, situation. Cardiovascular: Heart tones S1 S2 absent Capillary refill < 3 seconds Patient's skin is warm and dry. Rhythm is sinus rhythm. Cardiovascular: Dialysis shunt:. Respiratory: Airway is patent Respiratory effort is even, unlabored, Respiratory pattern is regular, symmetrical, Breath sounds are clear bilaterally. GI: Abdomen is round non-distended, Bowel sounds present X 4 quads. Abd is soft and non tender X 4 quads. : No signs and/or symptoms were reported regarding the genitourinary system. EENT: No signs and/or symptoms were reported regarding the EENT system. Derm: Skin is intact, is healthy with good turgor, Skin is pink, warm \T\ dry. Musculoskeletal: Amputation of Prosthesis attached. 11:10 Reassessment: Patient appears in no apparent distress at this time. Patient and/or ca1 family updated on plan of care and expected duration. Pain level reassessed. Patient is alert, oriented x 3, equal unlabored respirations, skin warm/dry/pink. 11:57 Reassessment: Patient appears in no apparent distress at this time. No changes from ca1 previously documented assessment. Patient and/or family updated on plan of care and expected duration. Pain level reassessed. Patient is alert, oriented x 3, equal unlabored respirations, skin warm/dry/pink. Vital Signs: 10:06 BP 112 / 58; Pulse 65; Resp 18 S; Temp 97.7(O); Pulse Ox 100% on R/A; Weight 85.73 kg; ca1 Height 5 ft. 9 in. (175.26 cm) (R); Pain 0/10; 11:39 BP 124 / 41; Pulse 66; Resp 15; Pulse Ox 100% ; jl7 12:49 BP 138 / 60; Pulse 66; Resp 17; Pulse Ox 99% ; Pain 0/10; jl7 10:06 Body Mass Index 27.91 (85.73 kg, 175.26 cm) ca1 ED Course: 10:06 Patient arrived in ED. ca1 10:07 Jerald Wiley MD is Attending Physician. rn 10:11 Triage completed. ca1 10:11 EKG done, by ED staff, reviewed by Jerald Wiley MD. em1 10:12 Patient maintains SpO2 saturation greater than 95% on room air. ca1 10:12 Arm band placed on right wrist. ca1 10:12 Patient has correct armband on for positive identification. Placed in gown. Bed in low ca1 position. Call light in reach. Side rails up X2. court monitor on. Pulse ox on. NIBP on. Warm blanket given. 10:16 Evette Flores, RN is Primary Nurse. ca1 10:25 Missed attempt(s): 22 gauge in left antecubital area. Bleeding controlled, band aid ca1 applied, catheter tip intact. 10:33 Initial lab(s) drawn, by mi, sent to lab. Inserted saline lock: 22 gauge in left upper ca1 arm, using aseptic technique. Blood collected. 10:46 XRAY Chest (1 view) In Process Unspecified. EDMS 12:03 Troponin (emerg Dept Use Only) Sent. ca1 12:08 Dressings: 4X4s to right fistula and wrapped with Kerlix. dh3 12:49 No provider procedures requiring assistance completed. IV discontinued, intact, jl7 bleeding controlled, No redness/swelling at site. Pressure dressing applied. Administered Medications: No medications were administered Outcome: 12:34 Discharge ordered by MD. rn 12:49 Discharged to home ambulatory. jl7 12:49 Condition: stable 12:49 Discharge instructions given to patient, Instructed on discharge instructions, follow up and referral plans. Demonstrated understanding of instructions, follow-up care. 12:50 Patient left the ED. jl7 Signatures: Dispatcher [employer] EDJerald Jones MD MD rn Martinez, Eric 1 Alicia Shepherd RN RN jl7 Ann Balderas 3 Evette Flores RN RN ca1
--- NOTE | 2020-10-02 12:35 | EDPHYS ---
Physician Documentation [facility] Name: Wade Koehler Age: 60 yrs Sex: Male : 1960 Arrival Date: 10/02/2020 Time: 10:06 Bed 4 Private MD: ED Physician Jerald Wiley HPI: 10/02 10:10 This 60 yrs old Male presents to ER via Unassigned with complaints of Chest rn Pain. 10:10 The patient or guardian reports chest pain that is located primarily in the substernal rn area. Onset: just prior to arrival. The pain does not radiate. Associated signs and symptoms: The patient has no apparent associated signs or symptoms, Pertinent negatives: abdominal pain, diaphoresis, dizziness, headache, lightheadedness, palpitations, shortness of breath, syncope, vomiting. The chest pain is described as aching. Duration: The patient or guardian reports a single episode, that is now resolved. Modifying factors: The symptoms are alleviated by nothing. the symptoms are aggravated by nothing. Severity of pain: At its worst the pain was mild in the emergency department the pain has resolved. The patient has not experienced similar symptoms in the past. The patient has been recently seen at the [facility] Emergency Department. Reports at dialysis, mid-dialysis began to feel chest pain, lasted for about 20-30 min, noted to be hypotensive, called 911, given IVF and symptoms and hypotension resolved. Patient feels fine currently. Reports treated last week for pneumonia but feeling better. . Historical: - Allergies: 10:12 NKA; ca1 - PMHx: 10:12 Diabetes - IDDM; Dialysis; at home seven days a week'; ESRD; Hypertension; PERIPHERAL ca1 NEUROPATHY; - PSHx: 10:12 Cholecystectomy; Heart stents; ca1 - Immunization history:: Adult Immunizations up to date, Pneumococcal vaccine is up to date, Flu vaccine is up to date. - Social history:: Smoking status: Patient reports the use of cigarette tobacco products, denies chronic smoking, but will smoke occasionally. - Family history:: not pertinent. - Hospitalizations: : No recent hospitalization is reported. ROS: 10:10 Constitutional: Negative for fever, chills, and weight loss, Eyes: Negative for injury, rn pain, redness, and discharge, Neck: Negative for injury, pain, and swelling, Cardiovascular: Negative for palpitations, and edema, Respiratory: Negative for shortness of breath, wheezing, and pleuritic chest pain, Abdomen/GI: Negative for abdominal pain, nausea, vomiting, diarrhea, and constipation, Back: Negative for injury and pain, MS/Extremity: Negative for injury and deformity, Skin: Negative for injury, rash, and discoloration, Neuro: Negative for headache, weakness, numbness, tingling, and seizure. Exam: 10:10 Constitutional: This is a well developed, well nourished patient who is awake, alert, rn and in no acute distress. Head/Face: Normocephalic, atraumatic. Cardiovascular: Regular rate and rhythm. No pulse deficits. Respiratory: No increased work of breathing, no retractions or nasal flaring. Abdomen/GI: soft, non-tender Skin: Warm, dry MS/ Extremity: Pulses equal, no cyanosis. + bandage to RUE dialysis fistula Neuro: Awake and alert, GCS 15 Vital Signs: 10:06 BP 112 / 58; Pulse 65; Resp 18 S; Temp 97.7(O); Pulse Ox 100% on R/A; Weight 85.73 kg; ca1 Height 5 ft. 9 in. (175.26 cm) (R); Pain 0/10; 11:39 BP 124 / 41; Pulse 66; Resp 15; Pulse Ox 100% ; jl7 12:49 BP 138 / 60; Pulse 66; Resp 17; Pulse Ox 99% ; Pain 0/10; jl7 10:06 Body Mass Index 27.91 (85.73 kg, 175.26 cm) ca1 MDM: 10:07 Patient medically screened. rn 12:32 Differential diagnosis: acute myocardial infarction, anxiety, costochondritis, rn gastroesophageal reflux disease (GERD), pleurisy, pneumonia. Data reviewed: vital signs, nurses notes, lab test result(s), EKG, radiologic studies, plain films, and as a result, I will discharge patient. Counseling: I had a detailed discussion with the patient and/or guardian regarding: the historical points, exam findings, and any diagnostic results supporting the discharge/admit diagnosis, lab results, radiology results, the need for outpatient follow up, to return to the emergency department if symptoms worsen or persist or if there are any questions or concerns that arise at home. Special discussion: Based on the patient's history, exam, and Dx evaluation, there is no indication for emergent intervention or inpatient Tx. It is understood by the patient/guardian that if the Sx's persist or worsen they need to return immediately for re-evaluation. I discussed with the patient/guardian in detail that at this point there is no indication for admission to the hospital. It is understood, however, that if the symptoms persist or worsen the patient needs to return immediately for re-evaluation. ED course: No change in troponin, same level as before, likely 2/2 ESRD, no ischemia on ECG, normal vitals since arrival. Sleeping, requesting to go home. Contacted Dr. Best, his pcp, agrees with dc home if repeat trop without change. . 10/02 10:08 Order name: Basic Metabolic Panel; Complete Time: 11:17 rn 10/02 10:08 Order name: CBC with Diff; Complete Time: 10:49 rn 10/02 10:08 Order name: NT PRO-BNP; Complete Time: 11:17 rn 10/02 10:08 Order name: Troponin (emerg Dept Use Only); Complete Time: 11:17 rn 10/02 10:08 Order name: XRAY Chest (1 view); Complete Time: 11:13 rn 10/02 11:57 Order name: Troponin (emerg Dept Use Only); Complete Time: 12:31 rn 10/02 10:08 Order name: EKG; Complete Time: 10:09 rn 10/02 10:08 Order name: Cardiac monitoring; Complete Time: 10:18 rn 10/02 10:08 Order name: EKG - Nurse/Tech; Complete Time: 10:10 rn 10/02 10:08 Order name: IV Saline Lock; Complete Time: 10:33 rn 10/02 10:08 Order name: Labs collected and sent; Complete Time: 10:33 rn 10/02 10:08 Order name: O2 Per Protocol; Complete Time: 10:18 rn 10/02 10:08 Order name: O2 Sat Monitoring; Complete Time: 10:18 rn Administered Medications: No medications were administered Disposition: 10/02/20 12:34 Discharged to Home. Impression: Chest pain, unspecified, End stage renal disease. - Condition is Stable. - Discharge Instructions: Nonspecific Chest Pain, Dialysis, End-Stage Kidney Disease. - Medication Reconciliation Form, Thank You Letter, Antibiotic Education, Prescription Opioid Use form. - Follow up: Private Physician; When: As needed; Reason: Recheck today's complaints, Re-evaluation by your physician. - Problem is new. - Symptoms have improved. Signatures: Dispatcher [employer] EDMS Jerald Wiley MD MD rn Leal, Jahala, RN RN jl7 Evette Flores RN RN ca1 Corrections: (The following items were deleted from the chart) 12:50 12:34 10/02/2020 12:34 Discharged to Home. Impression: Chest pain, unspecified; End jl7 stage renal disease. Condition is Stable. Forms are Medication Reconciliation Form, Thank You Letter, Antibiotic Education, Prescription Opioid Use. Follow up: Private Physician; When: As needed; Reason: Recheck today's complaints, Re-evaluation by your physician. Problem is new. Symptoms have improved. rn
[2020-10-02 13:08] VITALS: TEMP 97.7
[2020-10-02 13:11] VITALS: BP 138/60; O2SAT 99
--- NOTE | 2020-10-02 22:31 | EKG ---
Test Date: 2020-10-02 Test Time: 10:07:01 Services Tech: SERGIO MEASUREMENT RESULTS: Intervals: Rate: 65 CT: 152 QRSD: 84 QT: 440 QTc: 457 [place]: P: 53 CT: 152 QRS: 24 T: 61 INTERPRETIVE STATEMENTS: Normal sinus rhythm Possible Left atrial enlargement Borderline ECG Compared to ECG 03/03/2020 14:43:52 Sinus bradycardia no longer present First degree AV block no longer present Myocardial infarct finding no longer present Electronically Signed On 10-02-20 22:29:29 TRACK BROOM OPERATOR by Travis Coles
== END 2020-10-02 12:50 | disposition home or self-care (01) ==
LOC: ER 10:02
DX: R07.9 Chest pain, unspecified (principal); N18.6 End stage renal disease; F17.210 Nicotine dependence, cigarettes, uncomplicated; Z99.2 Dependence on renal dialysis
CPT/HCPCS: 36415; 71045; 80048; 83880; 84484; 85025; 93005; 99285

== ENCOUNTER 2021-01-01 10:52 | Day surgery (SDC) | payer MEDICARE ==
[2021-01-01] MEDS: OXYMETAZOLINE HCL 0.05% 15ML NAS ONE ×3 (11:55→12:05)
[2021-01-01] MEDS ORDERED: NA CHLORIDE 0.9% 500 ML ONE ×2 (12:03→13:17)
[2021-01-01] MEDS ORDERED: MIDAZOLAM HCL 2 MG/2 ML INJ ONE ×2 (12:03→12:59)
[2021-01-01] MEDS: CEFAZOLIN/SWI 1gm 1 GM/10 ML SYR ONE ×2 (12:10→13:30)
[2021-01-01] MEDS ORDERED: propofoL 200 MG/20 ML VIAL IV ONE ×2 (12:59→14:23)
[2021-01-01] MEDS ORDERED: dexAMETHasone 10 MG/ML VIAL ONE (12:59)
[2021-01-01] MEDS ORDERED: LIDOCAINE 1% MPF 5 ML VIAL ONE (12:59)
[2021-01-01] MEDS ORDERED: FENTANYL CITR 100 MCG/2 ML ONE (12:59)
[2021-01-01] MEDS ORDERED: ROCURONIUM 50 MG/5 ML VIAL IV ONE (12:59)
[2021-01-01] MEDS ORDERED: LIDOCAINE 1% W/EPI 1:100,000 MDV 20 ML VIAL ONE (13:17)
[2021-01-01] MEDS ORDERED: OXYMETAZOLINE HCL 0.05% 15ML NAS ONE (13:17)
[2021-01-01] MEDS ORDERED: ONDANSETRON 4 MG/2 ML VIAL ONE (14:15)
[2021-01-01] MEDS ORDERED: GLYCOPYRROLATE 0.2 MG/ML SYR ONE (14:15)
[2021-01-01] MEDS ORDERED: NEOSTIGMINE 1 MG/ML -5 ML ONE (14:15)
--- NOTE | 2021-01-01 14:17 | P.BOP ---
Preoperative diagnosis: septal deviation, turbinate hypertrophy, nasal obstruction Postoperative diagnosis: same Primary procedure: septoplasty Secondary procedure: turbinate reduction Email Marketer: NONE,NONE Estimated blood loss: 20ml Specimen: septal contents Anesthesia: General Complications: None Implants: Pascal splints Fluids & blood products: 250ml crystalloid Transferred to: Recovery Room Condition: Good
[2021-01-01 14:32] VITALS: O2SAT 95
[2021-01-01] MEDS: MORPHINE 4 MG/ML SYR ONE ×2 (14:40→15:00)
[2021-01-01] MEDS ORDERED: PROMETHAZINE INJ 25 MG/ML AMP ONE (15:00)
[2021-01-01] MEDS: HYDROMORPHONE HCL 1 MG/ML INJ ONE ×2 (15:10→15:15)
[2021-01-01] MEDS ORDERED: CODEINE 30MG/APAP 300MG TAB ONE (16:13)
[2021-01-01 16:41] VITALS: BP 164/65; TEMP 97.2
--- NOTE | 2021-01-01 17:29 | OP ---
Date of Procedure: 01/01/2021 Surgeon: Alicai Balderas MD Jewelsmith: None. Preoperative Diagnoses: Septal deviation, turbinate hypertrophy, nasal obstruction. Postoperative Diagnoses: Septal deviation, turbinate hypertrophy, nasal obstruction. Procedures Performed: Septoplasty and submucous resection, bilateral inferior turbinates with downfracture of inferior turbinate Blood Loss: 20 cc. Indication For Procedure: Mr. Koehler presented to the ENT Clinic over a year ago complaining of nasal obstruction. His history was relevant for chronic rhinitis medicamentosa and he was advised to stop all icax-lvk-nvmdodx topical decongestants and was lost to follow up. He re-presented to the ENT clinic in November 2020 with similar complaints. He was noted to be using Afrin multiple times per day at that time, the fluticasone nasal spray, Medrol Dosepak and advised to stop all Afrin or other topical decongestants. He re-presented about 1 month later with no active Afrin use and was compliant with the prescribed medical therapy, but had persistent bilateral right greater than worse nasal obstruction. His nasal exam demonstrated right septal spur and mild deviation with prominent bilateral anterior swell bodies and bilateral inferior turbinate hypertrophy. The risks, benefits, and alternatives to the procedure were discussed with the patient who agreed to proceed. The patient was anxious to complete his surgical treatment due to the pending social issues. Scheduling was accelerated. Description Of Procedure: The patient was brought to the operating room. He was placed under general anesthesia via oral endotracheal tube. The head of bed was turned 90 degrees. The nasal hairs were trimmed. The nasal septum was injected with 1% lidocaine with epinephrine. A total of 3 mL was used. The nose was packed with Afrin-soaked pledgets to allow for decongestion during the surgical procedure. Using a headlight and nasal speculum, a right hemitransfixion incision was made through the nasal mucosa and a Eaton elevator was used to elevate bilateral mucosal flaps. The cartilaginous septum was carefully at the bony cartilaginous junction with removal of a small 5 x 7 mm portion of deviated cartilage. This cartilage was set aside for reimplantation later. The bony septum was noted to have a prominent right-sided septal spur. An angled scissor was used to cut through the bone of the septum just superior to the spur and the Andrew and Cristian rongeurs were used to remove the spur fragments. Prominent maxillary crest on the right side was judiciously reduced using a rasp, which allowed good overall improvement of the right nasal airway. The area was inspected and there was minimal bleeding. The hemitransfixion incision was closed in a running fashion using resorbable suture. Resorbable suture on a small Simba needle was used to place mattressing sutures through the anterior septum in order to reduce the risk of septal hematoma. Attention was then turned towards the turbinates. The head of the turbinate was incised using a 15-blade scalpel and a submucosal pocket was developed using a Lizbeth elevator. The microdebrider fitted with an inferior turbinate blade was then used to reduce the soft tissue submucosally along the medial aspect of the bilateral inferior turbinates. A small amount of tissue from the inferior portion of the turbinate was also removed in order to give maximal improvement to the airway with hopes of minimizing risk of empty nose syndrome due to over resection. The nose was packed with Afrin-soaked pledgets for several minutes to aid in hemostasis. After removal of the pledgets, a Kapoor elevator was used to down fracture the inferior turbinates, again in hopes of maximizing the nasal airway Prior to closure of the septum, the previously removed cartilage was morselized in the cartilage salesperson used cars and placed between the mucosal flaps to reduce the risk of perforation and to reduce the risk of flail septum. The decision was made to place Pascal splints in order to reduce risk of nasal synechiae. The splints were secured to the anterior septum using a single 4-0 nylon suture. The oral cavity and oropharynx were thoroughly suctioned and there was no significant blood noted in these areas. The patient was returned to care of Anesthesia for awakening and extubation in the operating room, which proceeded without difficulty. Complications: None. Disposition: The patient will follow up with Dr. Balderas's office in 1 week for removal of the Pascal splints and assessment of surgical healing. CHET/QUINTIN Voice ID: [id number] Report ID: [id number] KATHIA
== END 2021-01-01 16:30 | disposition home or self-care (01) ==
LOC: OR 10:52
PROVIDERS: ATTEND Otolaryngology
PROC: 09BM8ZZ Excision of Nasal Septum, Via Natural or Artificial Opening Endoscopic (ICD-10-PCS; principal; 2021-01-01 12:30)
DX: J34.2 Deviated nasal septum (principal); J34.89 Other specified disorders of nose and nasal sinuses; J34.3 Hypertrophy of nasal turbinates; Z20.822 Contact with and (suspected) exposure to COVID-19
CPT/HCPCS: 82947 ×2; 88305; 88311; 30520; 30140; U0003; J2704 ×2; J2550; J2250; J3010; J1100; J1170; J2710; J0690; J7040 ×2; J2405; 88304

== ENCOUNTER 2021-01-03 11:28 | Emergency (ER) | payer MEDICARE ==
--- OUTSIDE RECORDS SUMMARY | 2021-01-03 11:33 | XMS REPORT | Continuity of Care Document ---
:1960 Author Organization [facility] t Address [address] [place] [address] Care Team Providers Name Role Phone Estephania BRAGG Primary Care Physician Aamir Xie MD Attending Clinician DR DENA Attending Clinician Unavailable Filippo Attending Clinician Unavailable Fior BRAGG Attending Clinician Lolly DONOHUE Attending Clinician Unavailable Tate Attending Clinician Unavailable Yadira Attending Clinician Unavailable Provider Attending Clinician Unavailable Frances BRAGG Attending Clinician Zain Attending Clinician Unavailable David Lackey MD Attending Clinician Chato Saunders MD Attending Clinician Luis BRAGG Attending Clinician Almaz CANCHOLA Attending Clinician Unavailable Pato DONOHUE Attending Clinician Unavailable LEVAR Attending Clinician Unavailable Robert Rice Attending Clinician Kevin Ruiz Attending Clinician Edward Obrien Attending Clinician DR DENA Admitting Clinician Unavailable VENKATA Admitting Clinician Unavailable Robert Rice Admitting Clinician Payers Payer Name Policy Type Policy Effective Date Expiration Date Sour ce Number HUMANA [id number] 2020 [place] MEDICAREHUMANA 00:00:00 Sikhism MEDICARE PPO/PFFS/ERS [id number] 2020 -PresentPPO BCBSBCBS CHOICE 2019 [place] PPO/FEDERAL EMPL 6 00:00:00 Methodis t [id number] Problems Condition Condition Condition Status Onset Resolution Last Treating Co mments Source Name Details Category Date Date Treatment Clinician Date Alcohol Alcohol Disease Active [place] use use 04-23 Methodi disorder, disorder, 00:00: st severe, severe, 00 dependence dependence 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 duced mood duced mood 04-23 Me thodi disorder disorder 00:00: st 00 Charcot Charcot Disease Active 2018-09 [place] ankle, ankle, 0-15 Methodi right right 00:00: st 00 Non-healin Non-healin Disease Active [place] g ulcer of g ulcer of 9-11 Me thodi ankle, ankle, 00:00: st right, right, 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 AV GRAFT Diagnosis Active 2019-03-11 M emoria MALFUNCTIO 6-10 22:05:00 l N AV GRAFT 00:00: Braulio n MALFUNCTIO 00 N Active 03/04/2019 [facility] RIGHT UE Diagnosis Active 2019-03-04 M emoria AV FISTULA 6-10 17:22:00 l MALFUNCTIO RIGHT UE 00:00: Jay nick N AV FISTULA 00 MALFUNCTIO N Active 03/04/2019 [place] UNK Diagnosis Active 2019-04-23 Mem oria 4-16 13:47:00 l UNK 00:00: [place] 00 Active 01/08/2019 [place] N18.6 Diagnosis Active 2018-12-20 Mem oria 3-01 07:30:00 l N18.6 00:00: Ganesh 00 Active 11/23/2018 [place] Mood Mood Disease Active [place] disorder disorder - Method i due to a due to a 00:00: st general general 00 medical medical condition condition Dyspnea Dyspnea Disease Active 2017-09 [place] 2- Methodi 00:00: st 00 SABAS SABAS Disease Active 2017-09 [place] (obstructi (obstructi 2-11 Me thodi ve sleep ve sleep 00:00: st apnea) apnea) 00 COPD COPD Disease Active 2017-09 [place] (chronic (chronic 2-11 Method i obstructiv obstructiv 00:00: st e e 00 pulmonary pulmonary disease) disease) with acute with acute bronchitis bronchitis Pneumonia Pneumonia Disease Active 2017-09 Sascha soto 10-23 Methodi 00:00: st 00 Encephalop Encephalop Disease Active 2017-09 H macy aranda 029 Methodi 00:00: st 00 Unspecifie Problem 2019-03-09 M emoria d 22:22:51 l complicati Braulio n on of Unspecifie cardiac d and complicati vascular on of prosthetic cardiac device, and implant vascular and graft, prosthetic initial device, encounter implant and graft, initial encounter 03/09/2019 [facility] Heart Problem Resolve 2019-03-09 Fernie edi failure d 22:22:51 l (disorder) Heart Meghna nn failure (disorder) Resolved Problem 03/09/2019 [facility] Myocardial Problem Resolve 2019-03-09 Memoria infarction d 22:22:51 l (disorder) Braulio n Myocardial infarction (disorder) Resolved Problem 03/09/2019 [facility] Diabetes Problem Active 2019-03-09 Mem oria mellitus 22:22:51 l (disorder) Diabetes He rmann mellitus (disorder) Active Problem 03/09/2019 [facility] Dyspnea on Problem Active 2019-03-09 M emoria exertion 22:22:51 l (finding) Dyspnea Herm helen on exertion (finding) Active Problem 03/09/2019 [facility] Hypertensi Problem Active 2019-03-09 M emoria ve 22:22:51 l disorder, Ganesh systemic Hypertensi arterial ve (disorder) disorder, systemic arterial (disorder) Active Problem 03/09/2019 [facility] Sleep Problem Active 2019-03-09 Memor ia apnea 22:22:51 l (finding) Sleep Braulio n apnea (finding) Active Problem 03/09/2019 [facility] Hand pain Problem Active 2019-03-09 Me moria (finding) 22:22:51 l Hand Ganesh pain (finding) Active Problem 03/09/2019 [facility] Paresthesi Problem Active 2019-03-09 M emoria a 22:22:51 l (finding) Ganesh Paresthesi a (finding) Active Problem 03/09/2019 [facility] Simple Problem Active 2019-03-09 Memor ia obesity 22:22:51 l (disorder) Simple Herm helen obesity (disorder) [facility] Sudden Problem Active 2019-03-09 Memor ia 22:22:51 l (finding) Sudden Meghna nn (finding) Active Problem 03/09/2019 [facility] MEC COMPL Diagnosis Active 2019-03-11 Memoria OF 22:05:00 l SURGICALLY [facility] Braulio n CREATED COMPL OF ARTERIO SURGICALLY CREATED ARTERIO Active [facility] UNSP COMP Diagnosis Active 2019-03-04 Memoria OF CARDIAC 17:22:00 l AND UNSP Ganesh VASCULAR COMP OF PROSTH CARDIAC AND VASCULAR PROSTH Active [facility] TYPE 2 Diagnosis Active 2019-03-05 Mem oria DIABETES 08:15:00 l MELLITUS TYPE 2 Braulio n WITH DIABETES HYPERGLYCE MELLITUS WITH HYPERGLYCE Active [facility] PROTEINURI Diagnosis Active 2019-03-05 Memoria A, 08:15:00 l UNSPECIFIE Braulio n D PROTEINURI A, UNSPECIFIE D Active [facility] History of History of Disease Active Overview : [place] blood blood Formattin Methodi transfusio transfusio g of this st n n note might be different from the original. in 2016. Wears Wears Disease Active [place] glasses glasses Methodi st Never Never Disease Active [place] exercises exercises Meth megan st Immunizati Immunizati Disease [place] ons up to ons up to [...] Memori a Medicati Medicati l on on [place] Allergie Allergie s s Family History Family Member Diagnosis Comments Start Date Stop Date Source Natural brother Diabetes Leija M ethodist Natural brother Cirrhosis Leija M ethodist Natural father Heart disease Heladio Jung Natural father Hypertension Heladio Lymanist Natural father Stroke Leija Me thodist Natural mother Diabetes [place] Me thodist Natural mother Hypertension Leija Sikhism Natural mother Kidney disease [place] Jung Social History Social Habit Start Date Stop Date Quantity Comments Source Cigarettes smoked 2020-08-04 2020-08-04 Heladio Jung current (pack per 00:00:00 00:00:00 day) - Reported Tobacco use and 2020-08-04 2020-08-04 Never used [facility] dirkodi exposure 00:00:00 00:00:00 Alcohol intake 2020-08-04 2020-08-04 Current drinker [place] 00:00:00 00:00:00 of alcohol (finding) Social History 2019-03-05 2019-03-05 [facility]le 04:54:59 04:54:59 Alcohol Comment 2017-11-02 2017-11-02 stopped in [facility] 00:00:00 00:00:July. History of tobacco 2016-01-24 Current smoker [place] just[place] Sikhism use 00:00:00 Sex Ass[birth year] [facility] 00:00:00 00:00:00 Smoking Status Start Date Stop Date Source Former smoker 2020-08-04 00:00:00 2020-08-04 00:00:00 [facility] Medications Ordered Filled Start Stop Current Ordering Indication Dosage Frequency Signature Comments Components Source Medication Medication Date Date Medication? Clinician (SIG) Name Name nitroglycer 2019-[address] 0.4 [place] in 1-10 mg under Methodi (NITROSTAT) 14:41: the tongue st 0.4 MG SL 04 every 5 tablet (five) minutes as needed for chest pain. albuterol 2019-09 Yes ProAir HFA [place] (PROAIR 1-10 90 Methodi HFA) 90 14:41: mcg/actuat st mcg/actuati 04 ion on inhaler aerosol inhaler gabapentin 2019-09 Yes 400mg QD Take 400 [place] (NEURONTIN) 1-10 mg by Methodi 300 mg 14:41: mouth st capsule 04 nightly. PATIENT NOW TAKES 400 ONCE DAILY atorvastati 2019-09 Yes atorvastat [place] n (LIPITOR) 1-10 in 10 mg Meth megan 10 MG 14:41: tablet st tablet 04 clopidogrel 2019-09 Yes clopidogre Leija (PLAVIX) 75 1-10 l 75 mg Metho di mg tablet 14:41: tablet st 04 traZODone 2019-09 Yes 100mg QD Take 100 Sascha ston (DESYREL) 1-10 mg by Methodi 100 MG 14:41: mouth st tablet 04 nightly. INSULIN 2019-09 Yes 35U QD Inject 35 [...] 14:41: daily. st enteric 04 coated tablet zolpidem 2019- No 10mg QD Take 10 mg [place] (AMBIEN) 5 7 0702 by mouth Meth megan MG tablet 12:21: 00:00 nightly as s t 48 :00 needed for sleep. pregabalin 2019- No 25mg Q.5D Take 25 mg Leija (LYRICA) 25 03-26 by mouth 2 M ethodi MG capsule 12:21: 00:00 (two) st 25 :00 times a day. losartan 2019- No 100mg QD Take [address]ascha [address]on (COZAAR) 03-26-02 mg by Methodi 100 MG 12:20: 00:[address] tablet 52 :00 daily. acetaminoph 2018-09- No TK 1 T PO Leija en-codeine 002 BID PRF Metho di (TYLENOL 00:00: 00:00 [...] 6-13 tab, PO, l tablet 21:30: Bedtime, Ganesh 00 PRN as needed for insomnia, X 30 day, # 30 tab, 0 Refill(s) predniSONE Yes 60 mg = 3 Me moria 20 mg oral 6-13 tab, PO, l tablet 21:30: Daily, 00 Take 3 tablets for 60 mg dose, X 4 day, # 12 tab, 0 Refill(s), Pharmacy: [facility] pantoprazol Yes 40 mg = 1 M emoria e 40 mg 6-13 tab, PO, l oral 21:30: Before [place] enteric 00 Breakfast, coated # 30 tab, tablet 0 Refill(s), Pharmacy: [facility] Colchicine Yes 0.6 mg = 1 M emoria 0.6 MG Oral 6-13 tab, PO, l Tablet 21:30: BID, # 60 Braulio n 00 tab, 0 Refill(s), Pharmacy: [facility] Levofloxaci Yes 500 mg = 1 Memoria n 500 MG 6-13 tab, PO, l Oral Tablet 21:30: Q24H, X 10 Ganesh [Levaquin] 00 day, # 10 tab, 0 Refill(s), Pharmacy: [facility] [place] [address] Protonix No Notes: Memoria 6-13 Tablet l 12:30: should not be chewed or crushed. (Same as: Protonix) Solu-Medrol No Notes: Fernie edi 6-13 (Same l 02:00: as:Solu-ME [place] 00 DROL, A-Methapre d) Colchicine No 0.6 mg, 1 Me moria 6-12 tab, l 19:53: Route: PO, Ganesh 00 Drug form: TAB, BID, Dosing Weight 92.227, kg, Priority: NOW, Start date: 03/06/19 14:53:00 CDT, Duration: 30 day, Stop date: 04/05/19 9:00:00 CDT tamsulosin No Notes: Memor ia 6-12 (Same As: l 02:00: Flomax) "Do Not Crush" atorvastati No Notes: Fernie edi n 6-12 (Same As: l 02:00: Lipitor) Epogen No Notes: Memoria 6-11 (Same as: l 22:00: Procrit) epoetin olamide 34614 unit/1 ml VL. For dialysis use only. (Procrit) WASTE: F/P - Red; E -Red MEDICATION WASTE Product Size: 28806 unit Product Wasted: ___ unit vancomycin No Notes: Memor ia + Sodium 6-11 TIME l Chloride 22:00: CRITICAL Meghna nn 0.9% IV 100 00 MEDICATION mL (Same As: Vancocin) For adult patients only: Round to nearest 250 mg per Medical Staff approval Lactulose No Notes: Memori a 667 MG/ML 6-11 (Same l Oral 22:00: as:Chronul Ganesh Solution 00 ac) Fluticasone No Notes: Fernie edi propionate 6-11 (Same as: l 0.05 22:00: Flonase) [place] MG/ACTUAT 00 Metered Dose Nasal [place] [Flonase] Fluticasone Yes 1 spray, Me moria propionate 6-11 NASAL, l 0.05 19:55: BID, # 16 Ganesh MG/ACTUAT 00 gm, 0 Metered Refill(s) Dose Nasal [place] [Flonase] prasugrel No 60kg, Memori a 6-11 without l 14:00: history of Ganesh 00 TIA/Ischem ic stroke and without likely bypass surgery [place] No 8.4 gm, Memori a 6-11 Route: PO, l 14:00: Drug form: [place] 00 PDR/REC, Daily, Dosing Weight 92.227, kg, [...] ia 6-11 Give with l 14:00: food. [place] 00 (Same As: Coreg) Aspirin 81 No Notes: Do Me moria MG Enteric 6-11 not crush l Coated 14:00: or chew. [place] Tablet 00 (Same As: Ecotrin) Nephro-Dana No Notes: Ferine edi Rx 6-11 (Same as: l 14:00: Nephro-Vit [place] e Rx and Diatx) Give with food. [...] No Notes: Fernie edi in 0.4 MG -11 (Same l Sublingual 03:42: as:Nitroqu H [place] Tablet 00 ick, Nitrostat) "Do Not Crush" Sublingual tablet Eszopiclone No 3 mg, Memor ia 6-11 Route: PO, l 03:42: Drug form: Ganesh 00 TAB, Bedtime, Dosing Weight 92.227, kg, PRN Insomnia, Start date: 03/04/19 22:42:00 CDT, Duration: 30 day, Stop date: 04/03/19 22:41:00 CDT Albuterol No Notes: Memori a 0.833 MG/ML -11 (Same as: l / 03:42: Duoneb) Ganesh Ipratropium 00 [place] 0.167 MG/ML Inhalant Solution Acetaminoph No Notes: Fernie edi en 325 MG / 6-11 (Same as: l Hydrocodone 03:13: [place] Meghna nn Bitartrate 00 325/5) Do 5 MG Oral not exceed Tablet 4gm/day of [[place] acetaminop 5/325] hen. Zofran No Notes: Memoria 6-11 (Same as: l 03:13: Zofran) Ganesh 00 MEDICATION WASTE Product Size: 4 mg Product Wasted: ___ mg Vancomycin No 1 ea, Memori a 6-11 Route: l 03:00: Ganesh WARD 00 ONCALL, Dosing Weight 92.227, kg, Start date: 03/04/19 22:00:00 CDT, Duration: 10 day, Stop date: 03/14/19 21:59:00 CDT, Pharmacy to dose, ABX Indication : Skin/Soft Tissue Infection cefepime No Notes: Memoria -11 (Same As: l 03:00: Maxipime) Ganesh 00 [...] day, Stop date: 04/03/19 21:20:00 CDT Dextrose 2018- No 25 gm, 50 Fernie edi 50% Syringe 6-11 mL, Route: l 02:21: IVP, Drug Form: INJ, Dosing Weight 92.227, kg, PRN, PRN Blood Glucose Results, Start date: 03/04/19 21:21:00 CDT, Duration: 30 day, Stop date: 04/03/19 21:20:00 CDT Acetaminoph 2018- No Notes: Do M emoria en 6-11 not exceed l 02:21: 4 gm/day. (Same as: Tylenol) tizanidine Yes 2 mg = 1 Mem oria 2 mg oral 6-11 cap, PO, l capsule 01:12: Q8H, PRN Braulio n 00 for muscle spasms, # 90 cap, 0 Refill(s) zolpidem 10 2019 No 10 mg = 1 M emoria mg oral 6-11 tab, PO, l tablet 01:12: Bedtime, PRN as needed for insomnia, 0 Refill(s) eszopiclone No 3 mg = 1 Me moria 3 mg oral 6-11 tab, PO, l tablet 01:12: Bedtime, [place] 00 PRN for insomnia, 0 Refill(s) Albuterol Yes 3 mL, Memoria 0.833 MG/ML 6-11 INHALATION l / 01:12: , Q4H, PRN Ganesh Ipratropium 00 Wheezing, [place] # 30 ea, 1 0.167 MG/ML Refill(s) Inhalant Solution NIFEdipine Yes 30 mg = 1 Me moria 30 mg oral 6-11 tab, PO, l tablet, 01:12: Before [place] extended 00 Breakfast, release # 30 tab, [...] ) Acetaminoph No Notes: Max Memoria en -30 acetaminop l 19:37: hen 4000 mg/day (4 [...] Itching, Start date: 02/21/19 14:28:00 CDT phenylephri 2019-0 No Route: IV, Memoria ne (ANES) 5-30 Drug form: l 18:58: INJ, ONCE, Stop date: 02/21/19 13:58:00 CDT Morphine 2019-0 No 2 mg, 1 Memori a 5-30 mL, Route: l 18:41: IVP, Drug form: SOLN, Q3H, Dosing Weight 90.682, kg, PRN Pain Score 1-3, Start date: 02/21/19 13:41:00 CDT, Duration: 30 day, Stop date: 03/23/19 13:40:00 CDT Acetaminoph 2018-0 No Notes: Do M emoria en 325 MG / 5-30 not exceed l Hydrocodone 18:41: 4gm/day of Ganesh Bitartrate 00 acetaminop 10 MG Oral hen. Tablet (Same as: [place] 325/10) ePHEDrine 2018- No Route: IV, Me moria (ANES) 5-30 [...] ONCE, Stop date: 02/21/19 13:07:00 CDT ondansetron No Route: IV, Memoria (ANES) 5-30 Drug form: l 17:42: INJ, ONCE, Stop date: 02/21/19 12:42:00 CDT ceFAZolin 0 No Route: IV, moria (ANES) 5-30 Drug form: l 17:42: INJ, ONCE, Stop date: 02/21/19 12:42:00 CDT vancomycin No Route: IV, Delaney emoria (ANES) 1000 5-30 Drug form: l mg 17:10: INJ, Start date: 02/21/19 12:10:00 CDT, Stop date: 02/21/19 13:10:00 CDT Sodium 2018-0 No Route: IV, Memor ia Chloride 5-30 Total l 0.9% IV 16:52: Volume: [place] (ANES) 1000 00 1,000, mL Start date: [...] Rate: 25 l 0.9% IV 14:49: ml/hr, [place] 1000 mL 00 Infuse over: 40 hr, Route: IV, Dosing Weight 90.682 kg, Total Volume: 1,000, Start date: 02/21/19 9:49:00 CDT, Duration: 30 day, Stop date: 03/23/19 9:48:00 CDT, 2.11, m2 Ancef + No Notes: Memoria sterile 5-07 (Same As: l water 20 mL 16:00: Ancef, Herm helen 00 Kefzol) MEDICATION WASTE Product Size: 1000 mg Product Wasted: ___ mg Vancomycin No 2000 mg: Me moria 5-07 infuse l 16:00: over 2.5 [place] 00 hours For adult patients only: Round to nearest 250 mg per Medical Staff approval MEDICATION WASTE Product Size: 1000 mg Product Wasted: ___ mg Insulin 2018- Yes 36 unit, Memori a Glargine 01-29 SUB-Q, l 100 UNT/ML 15:11: Daily, 0 Her mcintyre Injectable 00 Refill(s) Solution [Lantus] gabapentin 2018- Yes 300 mg = 1 M emoria 300 MG Oral 4-24 cap, PO, l Capsule 23:13: Daily, # Braulio n 43 30 cap, 3 Refill(s), Pharmacy: [facility] [id number] gabapentin 2018- No See Memoria 300 MG Oral 4-17 Instructio l Capsule 14:12: ns, 1 cap Meghna nn 00 PO after dialysis, # 30 cap, 2 Refill(s), Pharmacy: [facility] [id number] Ondansetron 2018-0 No 4 mg, Memor ia 12-20 Route: l 14:13: IVP, ONCE, [place] 00 Dosing Weight 90.966, kg, PRN Nausea & Vomiting, Start date: 12/20/18 9:13:00 CDT Meperidine 2018-0 No 12.5 mg, Mem oria 12-20 Route: l 14:13: IVP, [place] 00 Q30Min, Dosing Weight 90.966, kg, PRN [...] mine 12-20 Route: l 14:13: IVP, Drug [place] 00 form: INJ, Q6H, Dosing Weight 90.966, [...] Memori a 12-20 Route: l 14:13: IVP, [place] 00 Q5Min, Dosing Weight 90.966, kg, PRN [...] oria ne 12-20 Route: l 14:13: IVP, Ganesh 00 Q5Min, Dosing Weight 90.966, kg, PRN Pain Score 7-10, Start date: 12/20/18 9:13:00 CDT, Duration: 4 doses or times, Stop date: Limited # of times Acetaminoph No Notes: Do M emoria en 325 MG / 12-20 not exceed l Hydrocodone 14:09: 4gm/day of Ganesh Bitartrate 00 acetaminop 10 MG Oral hen. Tablet (Same as: [place] 325/10) Acetaminoph No Notes: Fernie edi en 325 MG / 12-20 (Same as: l Hydrocodone 14:09: [place] Meghna nn Bitartrate 00 325/5) Do 5 [...] n 00 30 cap, 0 Refill(s) carvedilol 2018- Yes 6.25 mg, Mem oria - PO, BID, 0 l 12:31: Refill(s) Ganesh 00 Vancomycin No 2001 mg: Me moria 12-11 infuse l 18:00: over 2.5 [place] 00 hours For adult patients only: Round [...] 0 Mem oria 3-19 Refill(s) l 17:51: Ganesh 00 bumetanide 2018- Yes 2 mg = 1 Mem oria 2 mg oral 3-19 tab, PO, l tablet 17:51: BID, 0 Ganesh 00 Refill(s) Acidophilus 2019-0 Yes Daily, 0 Me moria 3-19 Refill(s) l 17:51: Ganesh 00 Aspirin 81 2018- Yes 81 mg = 1 Me moria [...] 00 PRN for sleep, 0 Refill(s) Auryxia 0 Yes 420 mg, Memoria 3-19 PO, 0 l 17:50: Refill(s) [place] 00 NIFEdipine 2018- Yes 30 mg = 1 Me moria [...] cap, PO, l Capsule 17:49: BID, 0 [place] [Lyrica] 00 Refill(s) Insulin 2018- Yes 35 units, Memor ia Glargine 3-19 SUB-Q, l 100 UNT/ML 17:49: Daily, 0 Her mcintyre Injectable 00 Refill(s) Solution [Lantus] prasugrel 2020- No 10mg QD Take 1 [place] (EFFIENT) 11-03 tablet (10 Met hodi 10 mg 00:00: 00:00 mg total) st tablet 00 :00 by mouth daily for 30 days. VIOS Yes See Admin [place] AEROSOL 10-01 Instructio Method i DELIVERY 00:00: [...] Source Name Name FLUCELVAX QUAD PF 2018-08-09 [facility] 00:00:00 Sikhism Vital Signs Vital Name Observation Time Observation Value Comments Source Systolic blood 2020-08-04 14:39:00 197 mm[Hg] [place] pressure Diastolic blood 2020-08-04 14:39:00 79 mm[Hg] [place] pressure Heart rate 2020-08-04 14:39:00 78 /min [place] [facility]ism Body height 2020-08-04 14:39:00 175.3 cm [place] [facility]ism Body weight 2020-08-04 14:39:00 87.544 kg [place] [facility]ism BMI 2020-08-04 14:39:00 28.50 kg/m2 [place] [facility] Oxygen saturation in 2020-08-04 14:39:00 91 /min Leija Sikhism Arterial blood by Pulse oximetry Body temperature 2020-04-23 08:54:00 36.67 Suni [place] Respiratory rate 2020-03-26 07:46:00 17 /min [place] Respitory Rate 2019-03-07 21:13:00 Memori al Ganesh Systolic (mm Hg) 2019-03-07 21:13:00 Fernie rial [place] Diastolic (mm Hg) 2019-03-07 21:13:00 Mem orial Ganesh Temperature Oral (F) 2019-03-07 21:13:00 98.2 F [facility] Ganesh Heart Rate 2019-03-07 21:13:00 [facility] Ganesh Respitory Rate 2019-03-07 19:58:00 Memori al Ganesh Respitory Rate 2019-03-07 17:06:00 Memori al [place] Systolic (mm Hg) 2019-03-07 17:06:00 Fernie rial Ganesh Diastolic (mm Hg) 2019-03-07 17:06:00 Mem orial [place] Heart Rate 2019-03-07 17:06:00 Memorial Ganesh Temperature Oral (F) 2019-03-07 17:06:00 97.6 F [facility] [place] Systolic (mm Hg) 2019-03-07 12:10:00 Fernie rial Ganesh Diastolic (mm Hg) 2019-03-07 12:10:00 Mem orial [place] Heart Rate 2019-03-07 12:10:00 [facility] Ganesh Temperature Oral (F) 2019-03-07 12:10:00 98.3 F [facility] Ganesh Height 2019-03-04 22:27:00 172.72 cm [facility] Ganesh Weight 2019-03-04 22:27:00 [facility] [place] BMI Calculated 2019-03-04 22:27:00 Memori al [place] Respitory Rate 2019-02-21 20:30:00 Memori al [place] Systolic (mm Hg) 2019-02-21 20:30:00 Fernie rial Ganesh Diastolic (mm Hg) 2019-02-21 20:30:00 Mem orial [place] Systolic (mm Hg) 2019-02-21 19:45:00 Fernie rial [place] Diastolic (mm Hg) 2019-02-21 19:45:00 Mem orial [place] Respitory Rate 2019-02-21 19:45:00 Memori al Ganesh Systolic (mm Hg) 2019-02-21 19:40:00 Fernie rial [place] Diastolic (mm Hg) 2019-02-21 19:40:00 Mem orial Ganesh Respitory Rate 2019-02-21 19:40:00 Memori al [place] Heart Rate 2019-01-29 15:39:00 [facility] Ganesh Temperature Oral (F) 2019-01-29 15:39:00 97.5 F [facility] Ganesh BMI Calculated 2019-01-29 15:09:00 Memori al [place] Weight 2019-01-29 15:09:00 [facility] [place] Height 2019-01-29 15:09:00 172.72 cm [facility] Ganesh Systolic (mm Hg) 2018-12-20 15:00:00 Fernie rial [place] Diastolic (mm Hg) 2018-12-20 15:00:00 Mem orial Ganesh Respitory Rate 2018-12-20 15:00:00 Memori al Ganesh Respitory Rate 2018-12-20 14:45:00 Memori al Ganesh Systolic (mm Hg) 2018-12-20 14:45:00 Fernie rial Ganesh Diastolic (mm Hg) 2018-12-20 14:45:00 Mem orial Ganesh Respitory Rate 2018-12-20 14:30:00 Memori al Ganesh Systolic (mm Hg) 2018-12-20 14:30:00 Fernie rial Ganesh Diastolic (mm Hg) 2018-12-20 14:30:00 Mem orial Ganesh Temperature Oral (F) 2018-12-20 12:30:00 97.3 F [facility] Ganesh Height 2018-12-11 17:09:00 172.72 cm [facility] Ganesh BMI Calculated 2018-12-11 17:09:00 Memori al [place] Weight 2018-12-11 17:09:00 [facility] Ganesh Temperature Oral (F) 2018-12-11 17:09:00 97.8 F [facility] [place] Heart Rate 2018-12-11 17:09:00 [facility] [place] Procedures Procedure Date / Time Performing Clinician Source Performed [id number] 2020-10-26 00:00:00 ENCSL [id number] 2020-10-26 00:00:00 ENCSL [id number] 2020-10-26 00:00:00 ENCSL [id number] 2020-10-26 00:00:00 ENCSL [id number] 2020-10-26 00:00:00 ENCSL [id number] 2020-10-26 00:00:00 ENCSL [id number] 2020-10-26 00:00:00 ENCSL [id number] 2020-10-26 00:00:00 ENCSL [id number] 2020-10-26 00:00:00 ENCSL [id number] 2020-10-26 00:00:00 ENCSL [id number] 2020-10-26 00:00:00 ENCSL [id number] 2020-10-26 00:00:00 ENCSL [id number] 2020-10-26 00:00:00 ENCSL [id number] 2020-10-26 00:00:00 ENCSL [id number] 2020-10-26 00:00:00 ENCSL [id number] 2020-10-26 00:00:00 ENCSL SINGLE ANTIGEN BEADS 2020-08-26 12:48:00 Beatriz Xie Sikhism LUPUS ANTICOAGULANT PANEL 2020-07-08 14:11:00 Marielos Childress Sikhism CARDIOLIPIN ANTIBODIES 2020-07-08 14:11:00 Marielos Childress Sikhism BETA-2 GLYCOPROTEIN 1 2020-07-08 14:11:00 Marielos Childress Sikhism ANTIBODY, IGG AND IGM HEXAGONAL PHOSPHOLIPID 2020-07-08 14:11:00 Marielso Childress Sikhism JESUSVC, DRVVT/DRVVC 2020-07-08 14:11:00 Marielos Childress ethodist LUPUS ANTICOAGULANT PANEL 2020-05-27 13:13:00 Beatriz Xie Sikhism HEXAGONAL PHOSPHOLIPID 2020-05-27 13:13:00 Beatriz Xie Sikhism DRGalileoVC, DRVVT/DRVVC 2020-05-27 13:13:00 Beatriz Xie Sikhism SINGLE ANTIGEN BEADS 2020-05-27 08:19:00 Beatriz Xie Sikhism PROTHROMBIN TIME WITH INR 2020-05-14 13:20:00 Zoe, Andrewsfabi Aamir Jung PARTIAL THROMBOPLASTIN 2020-05-14 13:20:00 Zoe, Beatriz Aamir kemp Sikhism TIME (PTT) THYROID STIMULATING 2020-05-14 13:20:00 Zoe, Beatriz Rutledge Uli on Sikhism HORMONE SIX MINUTE WALK W/ PULSE 2020-04-23 12:51:44 Zoe, Andrewsfabi Aamir Jung OXIMETRY CT ANGIOGRAM ABDOMEN 2020-03-26 13:30:00 [...] HEPATITIS B SURFACE 2020-03-26 07:36:00 Hawk Lackey ANTIBODY HEPATITIS B SURFACE 2020-03-26 07:36:00 Hawk Lackey ANTIGEN HEPATITIS C ANTIBODY 2020-03-26 07:36:00 Hawk Lackey [...] Lackey PHOSPHORUS LEVEL 2020-03-26 07:36:00 Hawk Lackey n Sikhism LDH 2020-03-26 07:36:00 Hawk Lackey HEMOGLOBIN A1C 2020-03-26 07:36:00 Hawk Lackey CYTOMEGALOVIRUS AB, IGG 2020-03-26 07:36:00 Hawk Lackey CYTOMEGALOVIRUS AB, IGM 2020-03-26 07:36:00 Hawk Lackey DAYAMI-ORTIZ VIRUS 2020-03-26 07:36:00 Hawk Lackey ANTIBODY TEST HSV 1 & 2 GLYCOPROTEIN G 2020-03-26 07:36:00 Hakw Lackey AB, IGG HSV TYPE 1/2 COMBINED AB, 2020-03-26 07:36:00 Hawk Lackey ph IGM PARATHYROID HORMONE 2020-03-26 07:36:00 Hawk Lackey SERUM ELECTROPHORESIS 2020-03-26 07:36:00 Hawk Lackey PROSTATE SPECIFIC ANTIGEN 2020-03-26 07:36:00 Hawk Lackey ph C-PEPTIDE 2020-03-26 07:36:00 Hawk Lackey ESTIMATED GFR 2020-03-26 07:36:00 Hawk Lackey MISCELLANEOUS REFERRAL 2020-03-26 07:36:00 Hawk Lackey TEST SAB CLASS 1 & 2 WITH 2020-03-26 07:36:00 Hawk Lackey DILUTIONS 5P3O71Q 2019-07-31 00:00:00 ENCPL 8T0A15J 2019-07-31 00:00:00 ENCPL 4L1S64C 2019-07-31 00:00:00 ENCPL 6A8K06B 2019-07-31 00:00:00 ENCPL 2O6Q38P 2019-07-31 00:00:00 ENCPL 2O4W30P 2019-07-31 00:00:00 ENCPL 3I1B67P 2019-07-31 00:00:00 ENCPL 5Z0J35L 2019-07-31 00:00:00 ENCPL 1N7R42Z 2019-07-31 00:00:00 ENCPL 9Z5G23B 2019-07-31 00:00:00 ENCPL 0X7U93Q 2019-07-31 00:00:00 ENCPL 0N1O85C 2019-07-31 00:00:00 ENCPL 4J8P27P 2019-07-31 00:00:00 ENCPL 2F6G68G 2019-07-31 00:00:00 ENCPL 8S4T66Z 2019-07-31 00:00:00 ENCPL 7A3O46M 2019-07-31 00:00:00 ENCPL 5F3E66B 2019-07-31 00:00:00 ENCPL 8K6C90Q 2019-07-31 00:00:00 ENCPL 9H2J85K 2019-07-31 00:00:00 ENCPL 0Y1G16C 2019-07-31 00:00:00 ENCPL 6G2P79B 2019-07-31 00:00:00 ENCPL 2U7H79W 2019-07-31 00:00:00 ENCPL 0N1P30B 2019-07-31 00:00:00 ENCPL Stent placement 2018-07-26 05:00:00 [facility] Amputation of toe 2005-11-23 06:00:00 [facility] AVF - Pulmonary [facility] arteriovenous fistula operation Plan of Care Planned Activity Planned Date Details Comments Source Future Scheduled 2021-04-25 INFLUENZA VACCINE [place] [facility] 00:00:00 [code = INFLUENZA VACCINE] Future Scheduled 2020-06-06 DIABETIC FOOT EXAM [place] [facility] 00:00:00 [code = DIABETIC FOOT EXAM] Future Scheduled 2009 COLONOSCOPY SCREENING [facility] 00:00:00 [code = COLONOSCOPY SCREENING] Future Scheduled 2009 SHINGLES VACCINES [place] [facility] 00:00:00 (#1) [code = SHINGLES VACCINES (#1)] Future Scheduled 1975 COVID-19 VACCINE (1) [facility] 00:00:00 [code = COVID-19 VACCINE (1)] Future Scheduled 1969 DIABETES: RETINAL EYE [facility] 00:00:00 EXAM [code = DIABETES: RETINAL EYE EXAM] Encounters Start End Encounter Admission Attending Care Care Encounter Source Date/Time Date/Time Type Type Clinicians Facility Department ID 2019-04-30 Outpatient MHSE MHSE [id number] MH 14:00:27 [facility] 2019-03-04 Inpatient U MHSE MED [id number] MH 17:21:00 [facility] 2020-11-20 2020-11-20 Outpatient ZOE, [facility] [id number] [place] 00:00:00 00:00:00 AHMED [facility] 2020-10-24 2020-10-24 Outpatient Tyler FERNANDES, [facility] [id number] [facility] 16:41:00 23:59:00 [facility] 2020-09-28 2020-09-28 Outpatient ZOE, [facility] [id number] [place] 00:00:00 00:00:00 AHMED [address] 2020-08-26 2020-08-26 Outpatient ZOE, [facility] [id number] [place] 00:00:00 00:00:00 AHMED [address] 2020-08-12 2020-08-12 Outpatient ZOE, [facility] [id number] [place] 00:00:00 00:00:00 AHMED [address] 2020-08-04 2020-08-04 Outpatient PETKOVA, [facility] [id number] [place] 00:00:00 00:00:00 MARIELOS [address] 2020-08-04 2020-08-04 Outpatient PETKOVA, [facility] [id number] [place] 00:00:00 00:00:00 MARIELOS [address] 2020-07-08 2020-07-08 Outpatient PETKOVA, [facility] [id number] [place] 00:00:00 00:00:00 MARIELOS [address] 2020-07-08 2020-07-08 Outpatient ZOE, [facility] [id number] [place] 00:00:00 00:00:00 AHMED [address] 2020-07-08 2020-07-08 Outpatient PETKOVA, [facility] [id number] [place] 00:00:00 00:00:00 MARIELOS [address] 2020-07-08 2020-07-08 Outpatient PETKOVA, [facility] [id number] [place] 00:00:00 00:00:00 MARIELOS [address] 2020-05-27 2020-05-27 Outpatient ZOE, [facility] [id number] [place] 00:00:00 00:00:00 AHMED [address] 2020-05-27 2020-05-27 Outpatient ZOE, [facility] [id number] [place] 00:00:00 00:00:00 AHMED [address] 2020-05-14 2020-05-14 Outpatient ZOE, [facility] [id number] [place] 00:00:00 00:00:00 AHMED [address] 2020-04-23 2020-04-23 Outpatient ZOE, [facility] [id number] [place] 00:00:00 00:00:00 AHMED [address] 2020-04-23 2020-04-23 Outpatient ZOE, [facility] [id number] [place] 00:00:00 00:00:00 AHMED [address] 2020-03-26 2020-03-26 Outpatient HOBEIKA, [facility] [id number] [place] 00:00:00 00:00:00 HAWK [address] 2020-03-26 2020-03-26 Outpatient ZOE, [facility] [id number] [place] 00:00:00 00:00:00 AHMED [address] 2020-03-26 2020-03-26 Outpatient SAUNDERS, [facility] [id number] [place] 00:00:00 00:00:00 TC [address] 2020-03-26 2020-03-26 Outpatient HOBEIKA, [facility] [id number] [place] 00:00:00 00:00:00 HAWK [address] 2020-03-26 2020-03-26 Outpatient HOBEIKA, [facility] [id number] [place] 00:00:00 00:00:00 HAWK [address] 2019-11-05 2019-11-05 Outpatient ZOE, [facility] [id number] [place] 00:00:00 00:00:00 AHMED [address] 2019 2019-06-14 Inpatient ELVAR, [facility] [id number] [place] 00:00:00 00:00:00 SAUNDRA [address] 2019-03-04 2019-03-07 Outpatient Rolan Rice SE SE [id number] 17:21:00 18:43:00 Robert Loera 2019-02-21 2019-02-21 [id number] 11:31:00 15:41:00 Stephan Jermaine Brown 2019-02-21 2019-02-21 Outpatient SE MHSE [id number] MH 11:31:00 11:31:00 [facility] kd [facility] 2019-01-31 2019-01-31 [facility] [id number] 10:15:00 10:15:00 Juventino Jermaine Leon 2019-01-15 2019-01-16 [id number] 14:19:00 23:59:59 2018-12-20 2018-12-20 [facility] [id number] 07:30:00 10:08:00 Stephan Brown Results Test Description Test Time Test Comments Results Result Comments Source Single antigen beads 2020-09-02 11:04:23 Test Item Value Reference Range Interpretation Comme nts SAB serum ID (test code = 5866) [id number] SAB serum collection D&T (test code = 5867) 08/26/2020 12:48 PM SAB class I antibody assignment (test code = Negative 5870) SAB cPRA class I (test code = 5868) 0 SAB class II antibody assignment (test code = Negative 5871) SAB cPRA class II (test code = 5869) 0 Case number (test code = [id number]) [id number] Single antigen beads (test code = 4604) See link below for PDF Lab Report Heladio LymanistSix minute walk w/ pulse fwpkrlet2909-44-48 12:51:44 Test Item Value Reference Range Interpretation [...] Predicted 558 (test code = 5645) Heladio Flores Abdomen Pelvis W And Or Wo Ytwfldzu0882-75-91 14:05:12Hm Interface, Radiology Results 03/26/2020 2:08 PM CDT EXAMINATION: CT ANGIOGRAM ABDOMEN PELVIS W AND OR WO CONTRASTCLINICAL HISTORY: N18.6 End stage renal disease, Renal Transplant EvaluationTECHNIQUE: Multiple CT angiographic images of the abdomen and pelvis were obtained during intravenous administration of contrast. Multiple computerized reformatted images as well as 3-D volume rendered images were also obtained. CT imaging was performed with iterative reconstruction techniques and/or automated exposure control to reduce radiation dose.COMPARISON: None.FINDINGS:The abdominal aorta is of normal course and caliber throughout its length, with only trace infrarenal aortic nonflow limiting atherosclerosis/arteriosclerosis.Viscera [place]her aortic diameters:Diaphragmatic hiatus: 2.3 cmLevel of renal arteries: 1.9 cmDistal infrarenal segment: 1.6 cmCeliac, SMA and LULY are patent without stenosis. [place] renal arteries are unremarkable.Iliac arteries:Right common iliac: Mild medial wall calcification without stenosis. Diameter1.2 cmLeft common iliac: Normal. Diameter 1.1 cmRight [...] effusion.Liver: NormalGallbladder: CholecystectomyPancreas: Mild fatty infiltration; otherwise, normal.Spleen: NormalAdrenal glands: NormalKidneys: Marquis ateral cortical atrophy. Otherwise, normalUreters and urinary bladder: Normal. The urinary bladder is mostly decompressed.Prostate and seminal vesicles: There is arteriosclerosis of the penile arteriescalcification of the seminal vesicles.Bowel: Normal caliberPeritoneum: NormalLymph nodes: There is aminimally prominent bilateral inguinal and right external iliac chain nodes which are likely reactive. Right external iliac chain (image 151, series 2) measures up to 1.2 cm short axis, and has a well appearing fatty hilum. No additional suspicious lymphadenopathy.Skeleton: Intact. Multilevel degenerative disc disease. L2 superior endplate insufficiency fracture, chronic in appearance. Multilevel facet arthropathy.Soft tissues: Nonspecific soft tissue thickening at the umbilicus of indeterminate clinical significance. Otherwise, normal. IMPRESSION:Mild jfg-jsxp-aizsenqd atherosclerosis and arteriosclerosis of the aorta and iliac arteries as described.[facility]-[id number] MethodistCHEM PANEL 2019-03-06 20:06:002.1[facility] KqjzauaHKJDXLOJQY4634-42-48 20:06:00 Test Item Value Reference Range Interpretation Comments INR (test code = INR) 0.99 1 0.85-1.17 [facility] PekfwblFKHHENJNPC0042-78-93 20:06:00 Test Item Value Reference Range Interpretation Comments PT (test code = PT) 12.9 s 12.0-14.7 [facility] HvwxcasNSATUQMDMQ2507-14-75 20:06:00 Test Item Value Reference Range Interpretation Comments PTT (test code = PTT) 43.3 s 22.9-35.8 [facility] MemeeusFDYXUTNJSL5239-26-40 20:06:00>100[facility] HermannIMMUNOLOGY 2019-03-06 20:06:00<0.5[facility] UtenjmxBWKBDFGTTO7245-36-37 20:06:00<10 [facility] DmsocrbAFTABEGGZT7587-71-87 20:06:18661.0[facility] HermannCHEM PANEL 2019-03-06 18:38:0013[facility] HermannCHEM TBWPA3758-51-13 18:38:004.7[facility] HermannCHEM SHYAN7615-20-74 18:38:30062Juqpfrmo HermannCHEM OTWMM4503-21-75 18:38:004.69[facility] HermannCHEM GOHXN8792-95-16 18:38:93714Rtjitwwi HermannCHEM EOAPI7158-23-06 18:38:79797Mdvzykeg HermannCHEM YDJBT6512-41-54 18:38:0015 [facility] HermannCHEM PGLKN9961-66-72 18:38:0024[facility] HermannCHEM PANEL 2019-03-06 18:38:008.5[facility] HermannCHEM BLVTB1315-45-66 18:38:0015.7[facility] IhqmenyOQPMEFWVAZ5496-73-29 18:38:000.3[facility] TyfsqrtJFAXAEMOSC3751-62-93 18:38:000.1[facility] ChjdwzbJAHAUKDNZB3389-91-67 18:38:003.7[facility] LVBWDJDCTE2129-58-34 18:38:000.8[facility] QxikfgzYPKRIVBJDD7563-55-83 18:38:000.5 [facility] JqxvhfoHFIFAUBDBE7843-79-69 18:38:0015.8[facility] HermannHEMATOLOGY 2019-03-06 18:38:0068.7[facility] QgfrffwYVNRBQWYSH8473-16-48 18:38:001.9[facility] NlqefgaWNMPCCFSIL9689-01-89 18:38:004.9[facility] GnmnnibHWWIWBPNPD0538-54-01 18:38:008.7[facility] HwextibEKEUYLEXDK5928-56-51 18:38:0015.4[facility] BXXUERGTTB4984-63-12 18:38:00 Test Item Value Reference Range Interpretation Comments MCH (test code = MCH) 30.1 pg 27.0-31.0 [facility] NrhsdtzMENUUPZQVK9680-76-54 18:38:24570Efgswcdd HermannHEMATOLOGY 2019-03-06 18:38:009.6[facility] SiovkccXHGTCRJBFU2371-55-93 18:38:0032.6[facility] MotibprYCXIETWQOH3051-23-27 18:38:0029.4[facility] WlxwleqNXEVHCLZIX8467-25-76 18:38:0092.2[facility] XcgtxxkCMFFWYAPUW1174-85-66 18:38:007.2[facility] GLURCBTUTQ5956-54-04 18:38:003.19[facility] OjnilwoMVBUIAYLBK0386-13-97 18:38:00 5.4[facility] ZifqfynGFCFPYQLRO2882-74-41 13:30:00Negative *NA*(03/05/19 8:30 AM) [facility] HermannGENTAMICIN:SUSC:PT:ISOLATE:ORDQN:PCS3902-75-38 06:40:00 Citrobacter koseriMemorial HermannGENTAMICIN:SUSC:PT:ISOLATE:ORDQN:JDU2369-97-66 06:40:00Pseudomonas aeruginosaMemorial Ganesh GENTAMICIN:SUSC:PT:ISOLATE:ORDQN:WLW6468-28-20 06:40:00Klebsiella pneumoniae ssp pneumoniaeMemorial HermannGENTAMICIN:SUSC:PT:ISOLATE:ORDQN:DGR8957-96-51 06:40:00Enterobacter cloacaeMemorial HermannCHEM SKZAQ3422-10-62 03:51:008.1 [facility] HermannCHEM AVMDJ1547-96-78 03:51:000.8[facility] HermannCHEM PANEL 2019-03-05 03:51:0019[facility] HermannCHEM NCFFU8335-43-56 03:51:000.4[facility] HermannCHEM QVVLU6164-58-16 03:51:004[facility] HermannCHEM JRQNZ3314-58-49 03:51:0015Mem[facility] HermannCHEM EDYCE8362-28-43 03:51:002.5[facility] HermannCHEM WSHOK8299-90-71 03:51:006.0[facility] HermannCHEM ISKKP4495-47-46 03:51:55769 [facility] HermannCHEM HDJJP3973-97-28 03:51:0012.60[facility] HermannCHEM PANEL 2019-03-05 03:51:0055[facility] HermannCHEM HMQWF2273-31-59 03:51:16653Jgftltfa HermannCHEM KEOIH9782-31-88 03:51:87919Kapqkxoj HermannCHEM PLVDW6645-63-43 03:51:004.3[facility] HermannCHEM MNJKC9872-59-53 03:51:43274Jhbjbryu HermannCHEM MCLOE0683-11-35 03:51:007.6[facility] HermannCHEM ZVXBX5404-70-42 03:51:0025 [facility] HermannCHEM DOWTK6778-80-70 03:51:0014.3[facility] HermannCHEM PANEL 2019-03-05 03:51:00 Test Item Value Reference Range Interpretation Comments B/C Ratio (test code = B/C Ratio) 4 1 6-25 [facility] HermannCHEM AZKHQ9924-43-66 03:51:003.5[facility] HermannCHEM PANEL 2019-03-05 03:51:00 Test Item Value Reference Range Interpretation Comments A/G Ratio (test code = A/G Ratio) 0.7 1 0.7-1.6 [facility] DvfaeyuHSDRXHPSKH3784-60-21 03:51:002.3[facility] HermannHEMATOLOGY 2019-03-05 03:51:003.3[facility] YxnposoOELSUQJYFC5012-76-39 03:51:001.0[facility] UzwcyapMYNVCYUTRL4410-62-94 03:51:000.6[facility] KbmbabrFXZSMRNTVP2157-60-35 03:51:000.3[facility] LlpadiwILWAIQQEBN0095-55-66 03:51:0063.2[facility] [place] DITDJGMCLM7966-00-83 03:51:0018.1[facility] KexelwkFJVADMSSCG4219-80-03 03:51:00 0.1[facility] MacjepxMFFIUMNXXB7298-14-92 03:51:0011.0[facility] HermannHEMATOLOGY 2019-03-05 03:51:005.4[facility] ZqpytrtQWPJPONPFE6749-06-90 03:51:00 Test Item Value Reference Range Interpretation Comments MCH (test code = MCH) 29.8 pg 27.0-31.0 [facility] HywvuujFAWYLNEVBQ8715-22-90 03:51:0033.1[facility] HermannHEMATOLOGY 2019-03-05 03:51:005.3[facility] YfwhoglWBWNJPTZFB7958-66-82 03:51:002.61[facility] HyyrcelHDWLUBWJPI4487-39-22 03:51:007.8[facility] ZykcnirRXBHAFKJFK8789-89-05 03:51:0023.5[facility] QvhsqmfYHSCQTVDOS2559-32-80 03:51:0090.1[facility] BXVRFUTEQU0038-78-18 03:51:007.6[facility] ZhkuzcdLWYHCYQOHZ1030-94-48 03:51:32841 [facility] OmylsmdSVJCEXQJHL7802-53-89 03:51:0015.6[facility] HermannIMMUNOLOGY 2019-03-05 03:51:26405.0[facility] QczqxhnTRDMLIZJNH1818-00-21 18:20:006.0[facility] VbipocrGBWDVTQZIT0946-11-72 18:20:0033.0[facility] GvingrkTEGYZBAHID4424-38-69 18:20:003.64[facility] FarkjimFBADWUMPVB6330-66-34 18:20:0090.5[facility] KNHYROZRDQ4391-56-77 18:20:0010.8[facility] PkmddkiZFUDCJZCGQ7424-69-87 18:20:00 14.6[facility] AnwdqfxQIDJBLXQKW1438-14-43 18:20:27922Jggouote HermannHEMATOLOGY 2019-02-21 18:20:0032.9[facility] PxdkexkBGBLYWSJWJ6426-81-64 18:20:00 Test Item Value Reference Range Interpretation Comments MCH (test code = MCH) 29.8 pg 27.0-31.0 [facility] FfjmirbBMNURTWIHZ9779-59-39 18:20:007.8[facility] HermannBLOOD BANK WYELRBV0957-02-18 15:03:00Negative (02/21/19 10:03 AM)[facility] IKISSXQGNMND4955-89-12 15:03:004.3[facility] HermannCHEM FAHGY6316-80-77 14:18:007 [facility] HermannCHEM VYPQT2500-83-93 14:18:0014.2[facility] HermannCHEM PANEL 2019-02-21 14:18:0035[facility] HermannCHEM XEPOK3434-06-54 14:18:22940Hnuwlzih HermannCHEM LWBCO5144-28-15 14:18:008.4[facility] HermannCHEM SNDPP1169-26-45 14:18:0026[facility] HermannCHEM NOPON3368-58-41 14:18:007.88[facility] HermannCHEM XKHMT2463-26-56 14:18:0075[facility] HermannCHEM UAEQO4260-79-29 14:18:004.2 [facility] HermannCHEM YUIPN5716-48-20 14:18:77431Ycwjzcxp HermannBLOOD BANK PYKZXWQ6040-00-94 15:27:00Negative (01/29/19 10:27 AM)[facility] HermannCHEM PANEL 2019-01-29 15:27:006[facility] HermannCHEM AQOLP8609-34-95 15:27:10498Zgjovuwx HermannCHEM LDQMJ7884-86-52 15:27:004.3[facility] HermannCHEM ICSSY5197-95-86 15:27:0027[facility] HermannCHEM MOPLW2113-39-87 15:27:008.2[facility] HermannCHEM DYAUR1356-87-32 15:27:69757Kxgbscsh HermannCHEM PGTJV9033-63-76 15:27:50852 [facility]annCHEM AUCWR9927-98-42 15:27:008.24[facility] HermannCHEM PANEL 2019-01-29 15:27:0045[facility] HermannCHEM JFARD6113-47-08 15:27:0013.3[facility] TowhbwyXJLHFLZILH9498-09-56 15:27:000.6[facility] EhoqlvmDZLEEZDKFW0252-87-15 15:27:000.3[facility] MxvfmsrIWFJZGZVWU7546-01-02 15:27:000.1[facility] WKPIUEDMUE2209-42-73 15:27:0011.3[facility] CanasvhCPGSDZSEBU3047-33-12 15:27:00 1.5[facility] MfzvaneWGGLAWJMZG9683-62-41 15:27:005.5[facility] HermannHEMATOLOGY 2019-01-29 15:27:0015.4[facility] FsilvbiBEUVWMPJBP1776-82-89 15:27:0066.3[facility] MbjankcRXWFDHNJHZ3689-00-80 15:27:003.6[facility] FlbgxgpPPOGKBNHXQ6088-08-99 15:27:000.8[facility] RlgxtksLAUKEHXCOQ6786-00-94 15:27:00 Test Item Value Reference Range Interpretation Comments PTT (test code = PTT) 43.7 s 22.9-35.8 [facility] QzawqnyJNVWPRFMNN6699-37-65 15:27:00 Test Item Value Reference Range Interpretation Comments INR (test code = INR) 1.00 1 0.85-1.17 [facility] IdtrekeUIRJTIVGVU9558-50-37 15:27:00 Test Item Value Reference Range Interpretation Comments PT (test code = PT) 13.0 s 12.0-14.7 [facility] TccigoeTPZPLMDWRV3404-26-00 15:27:42425Rvqcwiwr HermannHEMATOLOGY 2019-01-29 15:27:007.5[facility] HbrmtiuXEQLLPOCVZ1681-61-87 15:27:005.4[facility] MebfbunFEKGDJROUR2523-96-45 15:27:003.90[facility] MijdwhsSQIEEAREQL1071-36-06 15:27:00 Test Item Value Reference Range Interpretation Comments MCH (test code = MCH) 30.3 pg 27.0-31.0 [facility] LumflpdNPBNALGBUS2894-42-66 15:27:0033.6[facility] HermannHEMATOLOGY 2019-01-29 15:27:0011.8[facility] YfyxbryNBWJDIUIXB5611-35-15 15:27:0090.1[facility] TnxnvwtHVAAJCEFLJ0556-19-78 15:27:0035.1[facility] MhcbimoGENKMOYTMX8175-84-08 15:27:0014.6[facility]annBLOOD BANK OYMWTTI1661-33-08 17:35:00Negative (12/11/18 12:35 PM)[facility] HermannCHEM UTBZN5190-88-51 17:35:006[facility] CHEM ZARWG5580-70-62 17:35:0062[facility] HermannCHEM LUAUX4205-56-91 17:35:0062 [facility] HermannCHEM OMJVR6313-18-50 17:35:008.1[facility] HermannCHEM PANEL 2018-12-11 17:35:0027[facility] HermannCHEM CKUMF5725-17-85 17:35:37875Eepmzbct HermannCHEM GHSKZ1367-38-81 17:35:006.0[facility] HermannCHEM OQTWX6253-04-02 17:35:63789Vrmulioy HermannCHEM CVSGO2993-22-84 17:35:008.46[facility] HermannCHEM NTPFX5055-08-30 17:35:0014.0[facility] QescsaaRTXINIEXFZ8056-37-19 17:35:001.9 [facility] XouoxiiMLFSUYOGSP9072-75-57 17:35:002.7[facility] HermannHEMATOLOGY 2018-12-11 17:35:004.4[facility] HvidkqyQNTETQRXHK5343-48-43 17:35:0011.6[facility] PthriaeXYNODLJXIP6910-55-90 17:35:000.1[facility] EtyuervOMTMFYVSJL0985-03-48 17:35:001.1[facility] WzqxivtSKIKFMNDKT3310-18-80 17:35:000.2[facility] TQLBMRUSLO0279-64-21 17:35:000.5[facility] EycouepAFZRDYTVTR7159-82-72 17:35:00 23.7[facility] ZltfxurAZHTOOLPFA3224-40-91 17:35:0058.4[facility] HermannHEMATOLOGY 2018-12-11 17:35:00 Test Item Value Reference Range Interpretation Comments PTT (test code = PTT) 42.9 s 22.9-35.8 [facility] PrlmmbmJXTSUKBCGK7819-64-84 17:35:00 Test Item Value Reference Range Interpretation Comments INR (test code = INR) 1.04 1 0.85-1.17 [facility] JrqyurgCERSCJNPPY8828-44-22 17:35:00 Test Item Value Reference Range Interpretation Comments PT (test code = PT) 13.4 s 12.0-14.7 [facility] IzlkqnvQXQAFXYZBR0857-16-40 17:35:0032.3[facility] HermannHEMATOLOGY 2018-12-11 17:35:0016.9[facility] NjiwmuwOPPEHSRCOR0459-18-09 17:35:00 Test Item Value Reference Range Interpretation Comments MCH (test code = MCH) 30.1 pg 27.0-31.0 [facility] MuajohoSXNXIYWVLH0610-32-54 17:35:72286Lbbcdwdu HermannHEMATOLOGY 2018-12-11 17:35:008.1[facility] KueqjxkYNPCWOOYOH1715-70-79 17:35:0093.1[facility] YxaofqgZLPVZDLUZV0269-98-21 17:35:0011.0[facility] AsgpjhsFPOGSRKUTS5301-26-27 17:35:0034.1[facility] BoyqvrcBXUNRHGGWB6309-05-45 17:35:004.6[facility] DZLWDLNFGJ9177-36-98 17:35:003.66[facility] HermannSPECIAL OLWQRIYOJ5886-61-00 17:35:005.0[facility]
[2021-01-03 12:15] LABS: Absolute Lymphocytes (CBC) 1.9 K/uL (0.7-4.9); Basophils % 1.3 % (0-1.3); Hematocrit 30.1 % (39.6-49.0); Lymphocytes % 24.9 % (15.3-44.8); MPV 7.8 fL (7.6-11.3); RBC Red Blood Cell Count 3.31 M/uL (4.33-5.43)
[2021-01-03 12:20] LABS: Protime INR 0.96
--- NOTE | 2021-01-03 12:24 | RAD REPORT ---
EXAM DESCRIPTION: RAD - Chest Single View - 01/03/2021 12:15 pm CLINICAL HISTORY: SOB Chest pain. COMPARISON: Chest Single View dated 10/02/2020; Chest Pa And Lat (2 Views) dated 09/20/2020; Chest Pa And Lat (2 Views) dated 09/14/2020; Chest Pa And Lat (2 Views) dated 03/03/2020 FINDINGS: Portable technique limits examination quality. Mild interstitial pulmonary edema. The heart is moderately enlarged in size. No displaced fractures.R ight-sided venous stent noted. IMPRESSION: Mild CHF.
[2021-01-03 12:36] LABS: ALT/SGPT 8 U/L (12-78); AST/SGOT 6 U/L (15-37); Albumin 3.2 g/dL (3.4-5.0); Alkaline Phosphatase 107 U/L (45-117); BUN Blood Urea Nitrogen 77 mg/dL (7-18); Bicarbonate 23 mmol/L (21-32); Bilirubin Direct < 0.1 mg/dL (0-0.2); Bilirubin Total 0.3 mg/dL (0.2-1.0); Glucose Level 183 mg/dL (74-106); Magnesium 2.2 mg/dL (1.8-2.4); NT PRO-BNP 25727 pg/mL (<125); Potassium 5.1 mmol/L (3.5-5.1); Protein, Total 6.5 g/dL (6.4-8.2); Sodium Level 131 mmol/L (136-145)
[2021-01-03] MEDS ORDERED: MORPHINE 4 MG/ML SYR ONE (12:55)
[2021-01-03] MEDS ORDERED: ONDANSETRON 4 MG/2 ML VIAL ONE (12:55)
[2021-01-03 13:09] LABS: SARS-COV-2 RT PCR NEGATIVE (NEGATIVE)
[2021-01-03] MEDS ORDERED: IPRATROPIUM BROM 0.5MG/2.5ML ONE (14:53)
[2021-01-03] MEDS ORDERED: HYDROCODONE/CHLORPHEN 5 ML/OSYR ONE (14:53)
[2021-01-03] MEDS ORDERED: ALBUTEROL 2.5 MG/3 ML NEB SOL ONE (14:53)
[2021-01-03] MEDS ORDERED: CEFTRIAXONE/SWI 1gm 0 GM/0 ML SYR ONE (15:32)
[2021-01-03] MEDS ORDERED: FUROSEMIDE 40 MG/4 ML VIAL ONE (15:32)
[2021-01-03] MEDS ORDERED: dexAMETHasone 10 MG/ML VIAL ONE (15:35)
--- NOTE | 2021-01-03 15:53 | ER ---
Nurse's Notes [facility] Name: Wade Koehler Age: 60 yrs Sex: Male : 1960 Arrival Date: 01/03/2021 Time: 11:29 Bed 15 Private MD: Diagnosis: End stage renal disease;Pulmonary edema;Cough Presentation: 01/03 11:41 Chief complaint: Patient states: SOB for 3 days. Had a nasal procedure Fermin here. ll1 States his nose has been oozing blood since, congested. Cant breath through his nose. No fever. Coronavirus screen: Client denies travel out of the [place] in the last 14 days. difficulty breathing, shortness of breath, Client presents with at least one sign or symptom that may indicate coronavirus-19. Standard/surgical mask placed on the client. Ebola Screen: Patient denies travel to an Ebola-affected area in the 21 days before illness onset. Initial Sepsis Screen: Does the patient meet any 2 criteria? No. Patient's initial sepsis screen is negative. Does the patient have a suspected source of infection? Yes: Other: nasal sx. Risk Assessment: Do you want to hurt yourself or someone else? Patient reports no desire to harm self or others. Onset of symptoms was January 01, 2021. 11:41 Method Of Arrival: Ambulatory [facility] 11:41 Acuity: WILFREDO 3 ll1 Triage Assessment: 11:45 General: Appears distressed, Behavior is calm, cooperative, appropriate for age. Pain: ll1 Complains of pain in [place] Quality of pain is described as aching. EENT: Nares with drainage noted with bleeding noted on left Reports nasal congestion nasal discharge that is bloody. Neuro: No deficits noted. Cardiovascular: No deficits noted. Respiratory: Reports shortness of breath cough that is Airway is patent Trachea midline Respiratory effort is even, unlabored, Respiratory pattern is regular, symmetrical, Sputum is bloody Breath sounds are clear bilaterally. Onset: The symptoms/episode began/occurred Fermin, the patient has mild shortness of breath. GI: No deficits noted. Historical: - Allergies: 11:41 NKA; ll1 - PMHx: 11:41 Diabetes - IDDM; ESRD; PERIPHERAL NEUROPATHY; Hypertension; Dialysis; at home seven ll1 days a week'; - PSHx: 11:41 Cholecystectomy; Heart stents; ll1 - Immunization history:: Flu vaccine is up to date. - Social history:: Smoking status: Patient denies any tobacco usage or history of. Screenin:58 Abuse screen: Denies threats or abuse. Nutritional screening: No deficits noted. ll1 Tuberculosis screening: No symptoms or risk factors identified. Fall Risk IV access (20 points). Total Burkett Fall Scale indicates No Risk (0-24 pts). Assessment: 12:45 Cardiovascular: No deficits noted. Rhythm is sinus bradycardia. ll1 13:45 Reassessment: No changes from previously documented assessment. Patient and/or family ll1 updated on plan of care and expected duration. Pain level reassessed. Patient is alert, oriented x 3, equal unlabored respirations, skin warm/dry/pink. 14:45 Reassessment: No changes from previously documented assessment. Patient and/or family ll1 updated on plan of care and expected duration. Pain level reassessed. Patient is alert, oriented x 3, equal unlabored respirations, skin warm/dry/pink. 15:45 Reassessment: No changes from previously documented assessment. Patient and/or family ll1 updated on plan of care and expected duration. Pain level reassessed. Vital Signs: 11:41 BP 175 / 75; Pulse 60; Resp 19; Temp 97.4; Pulse Ox 100% ; Weight 86.18 kg; Height 5 ll1 ft. 9 in. (175.26 cm); Pain 5/10; 14:40 BP 115 / 75; Pulse 58; Resp 20; Pulse Ox 100% ; ll1 11:41 Body Mass Index 28.06 (86.18 kg, 175.26 cm) ll1 ED Course: 11:29 Patient arrived in ED. ds1 11:34 Samuel Saravia, JAYDE is Primary Nurse. ll1 11:38 Baljit Pope NP is PHCP. pm1 11:38 Jerald Wiley MD is Attending Physician. pm1 11:40 Patient has correct armband on for positive identification. Bed in low position. Call ll1 light in reach. Side rails up X 1. Pulse ox on. 11:41 Arm band placed on Patient placed in an exam room, on a stretcher. ll1 11:43 Triage completed. ll1 12:00 Inserted saline lock: 22 gauge in left upper arm, using aseptic technique. Blood ll1 collected. 12:15 XRAY Chest (1 view) In Process Unspecified. EDMS 12:25 EKG done, by ED staff, reviewed by aBljit Pope NP COVID swab sent to lab. jp3 12:38 Notified Nurse Practitioner and/or Physician Histopathologist of a critical lab result(s), sv creatinine-10.6. 12:58 No provider procedures requiring assistance completed. ll1 15:04 Troponin (emerg Dept Use Only) Sent. sv 16:04 IV discontinued, intact, bleeding controlled, No redness/swelling at site. Pressure ll1 dressing applied. Administered Medications: 12:41 Drug: Zofran (Ondansetron) 4 mg Route: IVP; Site: left antecubital; ll1 16:32 Follow up: Response: No adverse reaction; RASS: Alert and Calm (0) ll1 12:42 Drug: morphine 4 mg Route: IVP; Site: left antecubital; ll1 16:32 Follow up: Response: No adverse reaction; RASS: Alert and Calm (0) ll1 14:39 Drug: Albuterol 2.5 mg Route: Inhalation; ll1 14:50 Follow up: Response: No adverse reaction; RASS: Alert and Calm (0) ll1 14:39 Drug: AtroVENT (ipratropium) Aerosol 0.5 mg Route: Inhalation; ll1 14:50 Follow up: Response: No adverse reaction; RASS: Alert and Calm (0) ll1 14:39 Drug: Tussionex Pennkinetic ER (chlorpheniramine-hydrocodone) 5 ml Route: PO; ll1 14:50 Follow up: Response: No adverse reaction; RASS: Alert and Calm (0) ll1 15:15 CANCELLED (Physician Discretion): Rocephin (cefTRIAXone) 1 grams IV at calculated rate pm1 once; Given slow IV push per pharmacy instructions 15:24 Drug: Decadron - Dexamethasone 10 mg Route: IVP; Site: left antecubital; ll1 16:32 Follow up: Response: No adverse reaction; RASS: Alert and Calm (0) ll1 15:25 Drug: Lasix (furosemide) 40 mg Route: IVP; Site: left antecubital; ll1 16:32 Follow up: Response: No adverse reaction; RASS: Alert and Calm (0) ll1 Outcome: 15:52 Discharge ordered by . pm1 16:04 Patient left the ED. ll1 16:04 Discharged to home via wheelchair. ll1 16:04 Condition: stable 16:04 Discharge instructions given to patient, Instructed on discharge instructions, follow up and referral plans. no drinking with medication, medication usage, Demonstrated understanding of instructions, follow-up care, medications, Prescriptions given X 3. Signatures: Dispatcher [employer] EDAlicia Chauhan, JAYDE RN Nathalie Barnhart ds1 Baljit Pope NP HOPPER OPERATOR pm1 [place] jp3 Samuel Saravia RN RN ll1
--- NOTE | 2021-01-03 15:53 | EDPHYS ---
Physician Documentation [facility] Name: Wade Koehler Age: 60 yrs Sex: Male : 1960 Arrival Date: 01/03/2021 Time: 11:29 Bed 15 Private MD: ED Physician Jerald Wiley HPI: 01/03 12:03 This 60 yrs old Male presents to ER via Ambulatory with complaints of pm1 Breathing Difficulty. 12:03 The patient has shortness of breath at rest. Onset: The symptoms/episode began/occurred pm1 3 day(s) ago. Duration: The symptoms are continuous, and are unchanged since they started. The patient's shortness of breath is aggravated by Nasal surgery on Monday with Dr. Balderas and is complaining of nasal congestion, drainage, and inability to breath through his nose. Associated signs and symptoms: Pertinent positives: non-productive cough, Pertinent negatives: chest pain, fever. Historical: - Allergies: 11:41 NKA; ll1 - PMHx: 11:41 Diabetes - IDDM; ESRD; PERIPHERAL NEUROPATHY; Hypertension; Dialysis; at home seven ll1 days a week'; - PSHx: 11:41 Cholecystectomy; Heart stents; ll1 - Immunization history:: Flu vaccine is up to date. - Social history:: Smoking status: Patient denies any tobacco usage or history of. ROS: 12:03 Constitutional: Negative for fever, chills, and weight loss. pm1 12:03 Cardiovascular: Negative for chest pain, palpitations, and edema. 12:03 Back: Negative for injury and pain, MS/Extremity: Negative for injury and deformity, Skin: Negative for injury, rash, and discoloration, Neuro: Negative for headache, weakness, numbness, tingling, and seizure. 12:03 ENT: Positive for nasal discharge, nasal congestion, Negative for drainage from ear(s), ear pain, sore throat, difficulty swallowing, difficulty handling secretions, hoarseness. 12:03 Respiratory: Positive for cough, shortness of breath. 12:03 Abdomen/GI: Negative for abdominal pain, nausea, vomiting, and diarrhea, constipation. Exam: 12:03 Constitutional: This is a well developed, well nourished patient who is awake, alert, pm1 and in no acute distress. Head/Face: Normocephalic, atraumatic. 12:03 Skin: Warm, dry with normal turgor. Normal color with no rashes, no lesions, and no evidence of cellulitis. MS/ Extremity: Pulses equal, no cyanosis. Neurovascular intact. Full, normal range of motion. 12:03 ENT: Nose: bleeding, is noted from both nares, and is minimal, nasal drainage, that is minimal, drains present in both nares. 12:03 Cardiovascular: Exam negative for acute changes, Rate: bradycardic, Rhythm: regular, Pulses: no pulse deficits are appreciated, Heart sounds: normal, normal S1and S2. 12:03 Respiratory: the patient does not display signs of respiratory distress, Respirations: normal, no shallow respirations, no splinting, no tachypnea, Breath sounds: are clear throughout. 12:03 Abdomen/GI: Exam negative for acute changes, Palpation: abdomen is soft and non-tender, in all quadrants. 12:03 Neuro: Exam negative for acute changes, Orientation: is normal, Mentation: is normal, Motor: is normal, moves all fours. Vital Signs: 11:41 BP 175 / 75; Pulse 60; Resp 19; Temp 97.4; Pulse Ox 100% ; Weight 86.18 kg; Height 5 ll1 ft. 9 in. (175.26 cm); Pain 5/10; 14:40 BP 115 / 75; Pulse 58; Resp 20; Pulse Ox 100% ; ll1 11:41 Body Mass Index 28.06 (86.18 kg, 175.26 cm) ll1 MDM: 11:43 Patient medically screened. pm1 15:11 Data reviewed: vital signs. Data interpreted: Pulse oximetry: on room air is 100 %. pm1 Interpretation: normal. 15:21 Counseling: I had a detailed discussion with the patient and/or guardian regarding: the pm1 historical points, exam findings, and any diagnostic results supporting the discharge/admit diagnosis, lab results, radiology results, the need for outpatient follow up, an ENT specialist, PCP, to return to the emergency department if symptoms worsen or persist or if there are any questions or concerns that arise at home. 15:43 ED course: Patient relieved to know that he does not have pneumonia. Patient's elevated pm1 troponin secondary to CHF and repeat troponin is less than initial troponin. Patient's vital signs stable with O2 saturation of 100% on RA. Patient ECG sinus bradycardia of 54 bpm otherwise normal ECG. Patient's main complaint now is the cough he is requesting cough syrup for discharge. Will treat as a viral bronchitis with breathing treatment, steroids, and cough medication. 01/03 11:52 Order name: Basic Metabolic Panel; Complete Time: 12:40 pm1 01/03 11:52 Order name: CBC with Diff; Complete Time: 12:25 pm1 01/03 11:52 Order name: LFT's; Complete Time: 12:40 pm1 01/03 11:52 Order name: Magnesium; Complete Time: 12:40 pm1 01/03 11:52 Order name: NT PRO-BNP; Complete Time: 12:40 pm1 01/03 11:52 Order name: PT-INR; Complete Time: 12:25 pm1 01/03 11:52 Order name: Troponin (emerg Dept Use Only); Complete Time: 12:40 pm1 01/03 11:52 Order name: XRAY Chest (1 view); Complete Time: 12:25 pm1 01/03 13:09 Order name: COVID-19/FLU A+B; Complete Time: 13:18 EDMS 01/03 14:15 Order name: Troponin (emerg Dept Use Only) pm1 01/03 14:15 Order name: Troponin (Emerg Dept Use Only); Complete Time: 14:52 EDMS 01/03 11:52 Order name: EKG; Complete Time: 11:53 pm1 01/03 11:52 Order name: Cardiac monitoring; Complete Time: 16:33 pm1 01/03 11:52 Order name: EKG - Nurse/Tech; Complete Time: 16:33 pm1 01/03 11:52 Order name: IV Saline Lock; Complete Time: 11:55 pm1 01/03 11:52 Order name: Labs collected and sent; Complete Time: 11:55 pm1 01/03 11:52 Order name: O2 Per Protocol; Complete Time: 11:55 pm1 01/03 11:52 Order name: O2 Sat Monitoring; Complete Time: 11:55 pm1 Administered Medications: 12:41 Drug: Zofran (Ondansetron) 4 mg Route: IVP; Site: left antecubital; ll1 16:32 Follow up: Response: No adverse reaction; RASS: Alert and Calm (0) ll1 12:42 Drug: morphine 4 mg Route: IVP; Site: left antecubital; ll1 16:32 Follow up: Response: No adverse reaction; RASS: Alert and Calm (0) ll1 14:39 Drug: Albuterol 2.5 mg Route: Inhalation; ll1 14:50 Follow up: Response: No adverse reaction; RASS: Alert and Calm (0) ll1 14:39 Drug: AtroVENT (ipratropium) Aerosol 0.5 mg Route: Inhalation; ll1 14:50 Follow up: Response: No adverse reaction; RASS: Alert and Calm (0) ll1 14:39 Drug: Tussionex Pennkinetic ER (chlorpheniramine-hydrocodone) 5 ml Route: PO; ll1 14:50 Follow up: Response: No adverse reaction; RASS: Alert and Calm (0) ll1 15:15 CANCELLED (Physician Discretion): Rocephin (cefTRIAXone) 1 grams IV at calculated rate pm1 once; Given slow IV push per pharmacy instructions 15:24 Drug: Decadron - Dexamethasone 10 mg Route: IVP; Site: left antecubital; ll1 16:32 Follow up: Response: No adverse reaction; RASS: Alert and Calm (0) ll1 15:25 Drug: Lasix (furosemide) 40 mg Route: IVP; Site: left antecubital; ll1 16:32 Follow up: Response: No adverse reaction; RASS: Alert and Calm (0) ll1 Disposition: 16:32 Co-signature as Attending Physician, Jerald Wiley MD. rn Disposition: 01/03/21 15:52 Discharged to Home. Impression: End stage renal disease, Pulmonary edema, Cough. - Condition is Stable. - Discharge Instructions: End-Stage Kidney Disease, Cough, Adult. - Prescriptions for Prednisone 20 mg Oral Tablet - take 3 tablet by ORAL route once daily for 5 days; 15 tablet. Albuterol Sulfate 90 mcg/actuation - inhale 1-2 puff by INHALATION route every 4-6 hours; 1 Inhaler. Guaifenesin AC 10- 100 mg/5 mL Oral Liquid - take 10 milliliter by ORAL route every 4 hours As needed; 240 milliliter. - Medication Reconciliation Form, Thank You Letter, Antibiotic Education, Prescription Opioid Use form. - Follow up: Emergency Department; When: As needed; Reason: Worsening of condition. Follow up: Private Physician; When: 2 - 3 days; Reason: Recheck today's complaints, Continuance of care, Re-evaluation by your physician. - Problem is new. - Symptoms have improved. Signatures: Dispatcher [employer] EDMS Jerald Wiley MD MD rn Marinas, Patrick, MEDIA PRODUCTION OPERATOR MEDIA PRODUCTION OPERATOR pm1 Samuel Saravia RN RN ll1 Corrections: (The following items were deleted from the chart) 12:22 11:57 Influenza Screen (A \T\ B)+BA.LAB.BRZ ordered. EDMI EDMS 12:22 11:57 CORONAVIRUS+MR.LAB.BRZ ordered. EDMI EDMS 15:15 15:14 Rocephin (cefTRIAXone) 1 grams IV at calculated rate once; Given slow IV push per pm1 pharmacy instructions ordered. pm1 16:04 15:52 01/03/2021 15:52 Discharged to Home. Impression: End stage renal disease; ll1 Pulmonary edema; Cough. Condition is Stable. Forms are Medication Reconciliation Form, Thank You Letter, Antibiotic Education, Prescription Opioid Use. Follow up: Emergency Department; When: As needed; Reason: Worsening of condition. Follow up: Private Physician; When: 2 - 3 days; Reason: Recheck today's complaints, Continuance of care, Re-evaluation by your physician. Problem is new. Symptoms have improved. pm1
[2021-01-03 16:20] VITALS: TEMP 97.4; O2SAT 100
[2021-01-03 16:23] VITALS: BP 115/75
--- NOTE | 2021-01-04 07:15 | EKG ---
Test Date: 2021-01-03 Test Time: 12:21:11 Hris Developer: LICHA MEASUREMENT RESULTS: Intervals: Rate: 54 AL: 188 QRSD: 88 QT: 486 QTc: 460 [place]: P: 62 AL: 188 QRS: 66 T: 47 INTERPRETIVE STATEMENTS: Sinus bradycardia Otherwise normal ECG Compared to ECG 10/02/2020 10:07:01 Sinus rhythm no longer present Electronically Signed On 01-04-21 07:14:05 CDT by Travis Coles
== END 2021-01-03 16:04 | disposition home or self-care (01) ==
LOC: ER 11:28
DX: J81.1 Chronic pulmonary edema (principal); R05 Cough; E11.22 Type 2 diabetes mellitus with diabetic chronic kidney disease; I12.0 Hypertensive chronic kidney disease with stage 5 chronic kidney disease or end stage renal disease; N18.6 End stage renal disease; Z99.2 Dependence on renal dialysis; Z95.818 Presence of other cardiac implants and grafts; Z20.822 Contact with and (suspected) exposure to COVID-19
CPT/HCPCS: 93005; 85025; 80048; 36415; 83735; 85610; 80076; 84484 ×2; 83880; 0240U; 71045; 96375; 96374; 99285; J1940; J1100; J2405; J0696